=== PATIENT | male | born 1945 | race Caucasian/White ===

== ENCOUNTER 2019-09-12 08:01 | Outpatient (CLI) | payer MEDICARE, SELFPAY ==
[2019-09-12 09:36] LABS: Basophils Absolute Auto 0.1 K/mm3 (0.0-0.1); Basophils Percent Auto 0.8 % (0.2-1.2); Eosinophils Absolute Auto 0.1 K/mm3 (0-0.3); Eosinophils Percent Auto 1.2 % (0-4.4); Hematocrit 38.9 % (42.0-52.0); Hemoglobin 13.4 g/dL (14.0-18.0); Immature Granulocyte Absolute 0.07 K/mm3 (0.00-0.031); Immature Granulocyte Percent A 0.8 % (0-0.5); Lymphocytes Absolute Auto 2.16 K/mm3 (0.9-3.2); Mean Corpuscular HGB Conc 34.4 g/dl (32-36); Mean Corpuscular Hemoglobin 32.8 pg (26-34); Mean Corpuscular Volume 95.1 fl (80-100); Mean Platelet Volume 12.8 fl (7.4-10.4); Monocytes Absolute Auto 0.6 K/mm3 (0.1-0.6); Neutrophils Percent Auto 66.2 % (45.5-73.1); Nucleated Red Blood Cells Absolute Auto 0.1 K/mm3 (0.0-0.012); Nucleated Red Blood Cells Perc 0.6 % (0.0-0.2); Red Blood Count 4.09 M/mm3 (4.6-6.20); Red Cell Distribution Width 13.2 % (11.5-14.5)
[2019-09-12 09:51] LABS: Alanine Aminotransferase 17 U/L (4-50); Albumin Level 4.7 g/dL (3.5-5.1); Alkaline Phosphatase 123 U/L (38-126); Anion Gap 12.7 mmol/L (7-16); Aspartate Amino Transferase 29 U/L (17-59); Blood Urea Nitrogen 18 mg/dL (9-20); Calcium 9.5 mg/dL (8.4-10.2); Carbon Dioxide 27 mmol/L (22-30); Chloride 105 mmol/L (98-107); Estimated Glomerular Filt Rate > 60; Glucose 107 mg/dL (75-110); Lactate Dehydrogenase 420 U/L (313-618); Potassium 4.7 mmol/L (3.4-5.0); Sodium 140 mmol/L (137-145)
== END 2019-09-12 08:02 | disposition home or self-care (01) ==
LOC: ANHLAB 08:05
PROVIDERS: PCP Student in an Organized Health Care Education/Training Program; Visit Provider Internal Medicine Hematology & Oncology
DX: C91.10 Chronic lymphocytic leukemia of B-cell type not having achieved remission (principal)
CPT/HCPCS: 36415; 80053; 83615; 85025

== ENCOUNTER 2019-12-12 08:06 | Outpatient (CLI) | payer MEDICARE, SELFPAY ==
[2019-12-12 08:27] LABS: Basophils Absolute Auto 0.1 K/mm3 (0.0-0.1); Basophils Percent Auto 0.7 % (0.2-1.2); Eosinophils Absolute Auto 0.2 K/mm3 (0-0.3); Eosinophils Percent Auto 1.7 % (0-4.4); Hematocrit 33.3 % (42.0-52.0); Immature Granulocyte Absolute 0.07 K/mm3 (0.00-0.031); Immature Granulocyte Percent A 0.8 % (0-0.5); Lymphocytes Absolute Auto 2.79 K/mm3 (0.9-3.2); Mean Corpuscular Hemoglobin 34.4 pg (26-34); Mean Corpuscular Volume 95.4 fl (80-100); Mean Platelet Volume 11.1 fl (7.4-10.4); Monocytes Absolute Auto 0.7 K/mm3 (0.1-0.6); Monocytes Percent Auto 7.7 % (2.6-8.5); Neutrophils Absolute Auto 5.2 K/mm3 (1.3-6.7); Neutrophils Percent Auto 58.1 % (45.5-73.1); Platelet Count Result 205 k/mm3 (150-375); Red Blood Count 3.49 M/mm3 (4.6-6.20); Red Cell Distribution Width 14.8 % (11.5-14.5)
[2019-12-12 11:41] LABS: Alanine Aminotransferase 17 U/L (4-50); Albumin Level 4.6 g/dL (3.5-5.1); Alkaline Phosphatase 122 U/L (38-126); Anion Gap 8 mmol/L (8-16); Aspartate Amino Transferase 40 U/L (17-59); Bilirubin,Total 2.6 mg/dL (0.2-1.3); Blood Urea Nitrogen 20 mg/dL (9-20); Calcium 9.9 mg/dL (8.4-10.2); Carbon Dioxide 31 mmol/L (22-30); Chloride 103 mmol/L (98-107); Estimated Glomerular Filt Rate > 60; Glucose 108 mg/dL (75-110); Lactate Dehydrogenase 770 U/L (313-618); Potassium 4.4 mmol/L (3.4-5.0); Sodium 142 mmol/L (137-145)
== END 2019-12-12 08:07 | disposition home or self-care (01) ==
PROVIDERS: PCP Student in an Organized Health Care Education/Training Program; Visit Provider Internal Medicine Hematology & Oncology
DX: C91.10 Chronic lymphocytic leukemia of B-cell type not having achieved remission (principal)
CPT/HCPCS: 36415; 80053; 83615; 85025

== ENCOUNTER 2020-01-27 08:07 | Outpatient (CLI) | payer MEDICARE, SELFPAY ==
[2020-01-27 08:33] LABS: Basophils Absolute Auto 0.1 K/mm3 (0.0-0.1); Basophils Percent Auto 0.8 % (0.2-1.2); Eosinophils Absolute Auto 0.1 K/mm3 (0-0.3); Eosinophils Percent Auto 1.4 % (0-4.4); Hematocrit 34.3 % (42.0-52.0); Hemoglobin 12.2 g/dL (14.0-18.0); Immature Granulocyte Absolute 0.09 K/mm3 (0.00-0.031); Lymphocytes Percent Auto 35.4 % (18.3-44.2); Mean Corpuscular HGB Conc 35.6 g/dl (32-36); Mean Corpuscular Hemoglobin 34.9 pg (26-34); Mean Platelet Volume 11.2 fl (7.4-10.4); Monocytes Absolute Auto 0.8 K/mm3 (0.1-0.6); Monocytes Percent Auto 8.7 % (2.6-8.5); Neutrophils Absolute Auto 4.9 K/mm3 (1.3-6.7); Neutrophils Percent Auto 52.7 % (45.5-73.1); Platelet Count Result 200 k/mm3 (150-375); Red Cell Distribution Width 14.1 % (11.5-14.5); White Blood Count 9.3 K/mm3 (4.5-10.0)
[2020-01-27 12:19] LABS: Alanine Aminotransferase 20 U/L (4-50); Albumin Level 4.4 g/dL (3.5-5.1); Alkaline Phosphatase 121 U/L (38-126); Anion Gap 6 mmol/L (8-16); Aspartate Amino Transferase 34 U/L (17-59); Bilirubin,Total 2.2 mg/dL (0.2-1.3); Blood Urea Nitrogen 16 mg/dL (9-20); Calcium 9.7 mg/dL (8.4-10.2); Carbon Dioxide 32 mmol/L (22-30); Chloride 104 mmol/L (98-107); Estimated Glomerular Filt Rate > 60; Glucose 103 mg/dL (75-110); Lactate Dehydrogenase 565 U/L (313-618); Potassium 4.6 mmol/L (3.4-5.0); Sodium 142 mmol/L (137-145)
[2020-01-30 13:29] LABS: Haptoglobin <8 mg/dL (43-212)
== END 2020-01-27 08:08 | disposition home or self-care (01) ==
LOC: ANHLAB 08:09
PROVIDERS: PCP Student in an Organized Health Care Education/Training Program; Visit Provider Internal Medicine Hematology & Oncology
DX: C91.10 Chronic lymphocytic leukemia of B-cell type not having achieved remission (principal); D59.12 Cold autoimmune hemolytic anemia
CPT/HCPCS: 36415; 80053; 83010; 83615; 85025

== ENCOUNTER → 2020-06-17 07:52 | Outpatient (CLI) | payer MEDICARE, SELFPAY ==
--- NOTE | ~2020-06-17 | US_ITS ---
EXAMINATION: [facility] DATE: 06/17/2020 08:16 CDT INDICATION: Screening abdominal aortic aneurysm. History of tobacco use. TECHNIQUE: Grayscale, color Doppler, and pulsed Doppler images of the aorta and common iliac arteries were obtained. COMPARISON: None. FINDINGS: The proximal aorta measures 2.1 cm greatest sagittal dimension. The mid aorta measures 2 cm greatest sagittal dimension. The distal aorta measures 1.6 cm greatest sagittal dimension. The right common in ternal iliac artery measures 1 cm. The left common iliac artery measures 1 cm. IMPRESSION: 1. Normal caliber aorta without aneurysm. Reviewed, dictated and finalized at location B.
== END ==
PROVIDERS: PCP Student in an Organized Health Care Education/Training Program; Visit Provider Student in an Organized Health Care Education/Training Program
DX: Z13.6 Encounter for screening for cardiovascular disorders (principal); Z87.891 Personal history of nicotine dependence
CPT/HCPCS: 76706

== ENCOUNTER 2020-07-27 08:03 | Outpatient (CLI) | payer MEDICARE, SELFPAY ==
[2020-07-27 11:00] LABS: Basophils Absolute Auto 0.1 K/mm3 (0.0-0.1); Basophils Percent Auto 0.7 % (0.2-1.2); Eosinophils Absolute Auto 0.1 K/mm3 (0-0.3); Eosinophils Percent Auto 0.9 % (0-4.4); Hematocrit 33.8 % (42.0-52.0); Hemoglobin 11.6 g/dL (14.0-18.0); Immature Granulocyte Absolute 0.07 K/mm3 (0.00-0.031); Immature Granulocyte Percent A 0.8 % (0-0.5); Immature Platelet Fraction Pct 9.4 % (0.9-11.2); Lymphocytes Absolute Auto 2.66 K/mm3 (0.9-3.2); Lymphocytes Percent Auto 31.1 % (18.3-44.2); Mean Corpuscular HGB Conc 34.3 g/dl (32-36); Mean Corpuscular Volume 96.3 fl (80-100); Mean Platelet Volume 12.8 fl (7.4-10.4); Monocytes Absolute Auto 0.7 K/mm3 (0.1-0.6); Monocytes Percent Auto 8.1 % (2.6-8.5); Neutrophils Percent Auto 58.4 % (45.5-73.1); Nucleated Red Blood Cells Perc 0.2 % (0.0-0.2); Platelet Count Result 144 k/mm3 (150-375); Red Blood Count 3.51 M/mm3 (4.6-6.20); Red Cell Distribution Width 13.9 % (11.5-14.5); White Blood Count 8.6 K/mm3 (4.5-10.0)
[2020-07-27 13:09] LABS: Alanine Aminotransferase 16 U/L (4-50); Albumin Level 4.6 g/dL (3.5-5.1); Alkaline Phosphatase 106 U/L (38-126); Anion Gap 10 mmol/L (8-16); Aspartate Amino Transferase 29 U/L (17-59); Bilirubin,Total 2.4 mg/dL (0.2-1.3); Blood Urea Nitrogen 16 mg/dL (9-20); Calcium 9.8 mg/dL (8.4-10.2); Carbon Dioxide 24 mmol/L (22-30); Chloride 109 mmol/L (98-107); Estimated Glomerular Filt Rate > 60; Glucose 98 mg/dL (75-110); Lactate Dehydrogenase 531 U/L (313-618); Potassium 4.5 mmol/L (3.4-5.0); Sodium 143 mmol/L (137-145)
[2020-07-28 17:46] LABS: Hepatitis C Virus Antibody Negative (Negative); Prostate Specific Antigen 1.5 ng/mL (< OR = 4.0)
[2020-07-28 18:55] LABS: Cholesterol 158 mg/dL (0-200); HDL Direct 44 mg/dL; Triglycerides 84 mg/dL (<150)
[2020-07-28 19:02] LABS: LDL Cholesterol Direct 81 mg/dL
== END 2020-07-27 08:04 | disposition home or self-care (01) ==
PROVIDERS: PCP Student in an Organized Health Care Education/Training Program; Visit Provider Internal Medicine Hematology & Oncology
DX: C91.10 Chronic lymphocytic leukemia of B-cell type not having achieved remission (principal); R07.89 Other chest pain; D59.12 Cold autoimmune hemolytic anemia; Z12.5 Encounter for screening for malignant neoplasm of prostate; Z87.891 Personal history of nicotine dependence; R06.02 Shortness of breath; R07.9 Chest pain, unspecified
CPT/HCPCS: 36415; 80053; 80061; 83615; 84153; 84443; 85025; 85055; 86803; G0103

== ENCOUNTER 2020-11-27 08:03 | Outpatient (CLI) | payer MEDICARE, SELFPAY ==
[2020-11-27 08:29] LABS: Basophils Absolute Auto 0.1 K/mm3 (0.0-0.1); Basophils Percent Auto 0.8 % (0.2-1.2); Eosinophils Absolute Auto 0.1 K/mm3 (0-0.3); Eosinophils Percent Auto 1.3 % (0-4.4); Hematocrit 33.4 % (42.0-52.0); Hemoglobin 11.8 g/dL (14.0-18.0); Immature Granulocyte Absolute 0.07 K/mm3 (0.00-0.031); Immature Granulocyte Percent A 0.9 % (0-0.5); Lymphocytes Absolute Auto 2.85 K/mm3 (0.9-3.2); Lymphocytes Percent Auto 35.9 % (18.3-44.2); Mean Corpuscular HGB Conc 35.3 g/dl (32-36); Mean Corpuscular Hemoglobin 35.4 pg (26-34); Mean Corpuscular Volume 100.3 fl (80-100); Mean Platelet Volume 11.5 fl (7.4-10.4); Monocytes Absolute Auto 0.7 K/mm3 (0.1-0.6); Monocytes Percent Auto 8.3 % (2.6-8.5); Neutrophils Absolute Auto 4.2 K/mm3 (1.3-6.7); Neutrophils Percent Auto 52.8 % (45.5-73.1); Platelet Count Result 207 k/mm3 (150-375); Red Blood Count 3.33 M/mm3 (4.6-6.20); Red Cell Distribution Width 15.1 % (11.5-14.5); White Blood Count 7.9 K/mm3 (4.5-10.0)
[2020-11-27 09:54] LABS: Iron 172 ug/dL (49-181)
[2020-11-27 09:56] LABS: Alanine Aminotransferase 20 U/L (4-50); Alkaline Phosphatase 117 U/L (38-126); Anion Gap 8 mmol/L (8-16); Aspartate Amino Transferase 66 U/L (17-59); Bilirubin,Total 2.7 mg/dL (0.2-1.3); Blood Urea Nitrogen 17 mg/dL (9-20); Calcium 9.4 mg/dL (8.4-10.2); Carbon Dioxide 30 mmol/L (22-30); Chloride 105 mmol/L (98-107); Estimated Glomerular Filt Rate > 60; Glucose 106 mg/dL (65-110); Potassium 4.6 mmol/L (3.4-5.0); Sodium 143 mmol/L (137-145)
[2020-11-27 10:08] LABS: Percent Iron Saturation 60 % (20-50)
[2020-11-27 11:30] LABS: Folic Acid > 20.0 ng/mL (2.76->20)
== END 2020-11-27 08:04 | disposition home or self-care (01) ==
LOC: ANHLAB 08:06
PROVIDERS: PCP Student in an Organized Health Care Education/Training Program; Visit Provider Internal Medicine Hematology & Oncology
DX: C91.10 Chronic lymphocytic leukemia of B-cell type not having achieved remission (principal)
CPT/HCPCS: 36415; 80053; 82607; 82728; 82746; 83540; 83550; 85025

== ENCOUNTER 2020-12-01 15:23 | Emergency (ER) | payer MEDICARE, SELFPAY ==
[2020-12-01 15:39] VITALS: BP 134/68; PULSE 65; RESP 16; TEMP 36.6; O2SAT 100
[2020-12-01 16:06] VITALS: BP 148/75; PULSE 63; RESP 16; TEMP 36.6; O2SAT 100
--- NOTE | 2020-12-01 19:01 | ED.GENADULT ---
HPI - General Adult General Chief complaint: Extremity Injury, Upper <Santos Grace PA-C - Last Filed: 12/01/20 19:04> Stated complaint: finger lac <Santos Grace PA-C - Last Filed: 12/01/20 19:04> Time Seen by Provider: 12/01/20 16:12 <Santos Grace PA-C - Last Filed: 12/01/20 19:04> Source: patient <Santos Grace PA-C - Last Filed: 12/01/20 19:04> Mode of arrival: ambulatory <PAUL Boyce Last Filed: 12/01/20 19:04> Limitations: no limitations <PAUL Boyce Last Filed: 12/01/20 19:04> History of Present Illness HPI narrative: Patient presents with chief complaint of lacerations to the palmar aspects of his left second and fourth digits. Patient sustained these lacerations while using the hedge trimmers. Patient states that he is up-to-date on his tetanus as of May of this year. Patient denies any other injuries. <Santos Grace PA-C - Last Filed: 12/01/20 19:04> Related Data Home medications: Home Medications Medication Instructions Recorded Confirmed pantoprazole PO 12/01/20 <Santos Grace PA-C - Last Filed: 12/01/20 19:04> Allergies/adverse reactions: Allergies Allergy/AdvReac Type Severity Reaction Status Date / Time PAIN MEDS AdvReac Mild NAUSEATED Uncoded 09/27/11 10:56 <Santos Grace PA-C - Last Filed: 12/01/20 19:04> Review of Systems Review of Systems: CONSTITUTIONAL: Denies fever, chills, or sweats. EYES: Denies visual changes, redness, or discharge. ENT: Denies rhinorrhea, congestion, sore throat, or otalgia. CARDIOVASCULAR: Denies chest pain, palpitations, or edema. RESPIRATORY: Denies cough or dyspnea. GASTROINTESTINAL: Denies abdominal pain, nausea, vomiting, or diarrhea. GENITOURINARY: Denies dysuria or hematuria. SKIN: Reports lacerations denies rash or itching. MUSCULOSKELETAL: Denies back pain, joint pain, or myalgia. NEUROLOGIC: Denies headache, numbness, dizziness, or weakness. PSYCHIATRIC: Denies anxiety or depression. <Santos Grace PA-C - Last Filed: 12/01/20 19:04> PMFSH Family History Family History: Family History (Updated 10/17/13 @ 07:13 by DOCTOR UNKNOWN) Mother Family history of dementia <Santos Grace PA-C - Last Filed: 12/01/20 19:04> Social History Social History: Social History Smoking status: Never smoker Alcohol intake: never <Santos Grace PA-C - Last Filed: 12/01/20 19:04> Exam Narrative: GENERAL: Well-appearing, well-nourished, and in no acute distress. HEAD: Normocephalic, atraumatic. EYES: PERRLA and EOMI. EXTREMITIES: Normal range of motion. SKIN: Y-shaped laceration to the palmar aspect of the left second digit-well approximated. c shaped laceration to the palmar aspect of the left fourth digit well approximated. Warm, dry, no rash. NEURO: No focal deficits. Alert and oriented x3. PSYCH: Normal mood and affect. <Santos Grace PA-C - Last Filed: 12/01/20 19:04> Course Vital Signs Vital signs: Vital Signs Temperature 36.6 C 12/01/20 15:39 Pulse Rate 65 12/01/20 15:39 Respiratory Rate 16 12/01/20 15:39 Blood Pressure 134/68 12/01/20 15:39 Pulse Oximetry 100 12/01/20 15:39 Temperature 36.6 C 12/01/20 16:06 Pulse Rate 58 L 12/01/20 19:34 Respiratory Rate 17 12/01/20 19:34 Blood Pressure 143/75 H 12/01/20 19:34 Pulse Oximetry 100 12/01/20 19:34 <Santos Grace PA-C - Last Filed: 12/01/20 19:04> Procedures Laceration Laceration 1: Site: hand <PAUL Boyce Last Filed: 12/01/20 19:04> Side (If applicable): left (Second digit) <PAUL Boyce Last Filed: 12/01/20 19:04> Description: other (y shaped) <PAUL Boyce Last Filed: 12/01/20 19:04> Depth: simple, single layer <PAUL Boyce Last Filed: 12/01/20 19:04> Pre-repair: irrigated extensively <PAUL Boyce Filed: 11/20
[2020-12-01 19:34] VITALS: BP 143/75; PULSE 58; RESP 17; O2SAT 100
== END 2020-12-01 19:36 | disposition home or self-care (01) ==
PROVIDERS: Emergency Provider Emergency Medicine; PCP Student in an Organized Health Care Education/Training Program
DX: S61.211A Laceration without foreign body of left index finger without damage to nail, initial encounter (principal); S61.215A Laceration without foreign body of left ring finger without damage to nail, initial encounter; W26.8XXA Contact with other sharp object(s), not elsewhere classified, initial encounter
CPT/HCPCS: 12001; 99282

== ENCOUNTER 2021-03-30 08:05 | Outpatient (CLI) | payer MEDICARE, SELFPAY ==
[2021-03-30 08:41] LABS: Basophils Percent Auto 0.5 % (0.2-1.2); Eosinophils Absolute Auto 0.1 K/mm3 (0-0.3); Eosinophils Percent Auto 1.3 % (0-4.4); Hematocrit 34.2 % (42.0-52.0); Hemoglobin 11.9 g/dL (14.0-18.0); Immature Granulocyte Absolute 0.05 K/mm3 (0.00-0.031); Immature Granulocyte Percent A 0.6 % (0-0.5); Lymphocytes Absolute Auto 2.81 K/mm3 (0.9-3.2); Lymphocytes Percent Auto 33.5 % (18.3-44.2); Mean Corpuscular HGB Conc 34.8 g/dl (32-36); Mean Corpuscular Hemoglobin 35.6 pg (26-34); Mean Corpuscular Volume 102.4 fl (80-100); Mean Platelet Volume 11.8 fl (7.4-10.4); Monocytes Absolute Auto 0.6 K/mm3 (0.1-0.6); Monocytes Percent Auto 7.6 % (2.6-8.5); Neutrophils Absolute Auto 4.7 K/mm3 (1.3-6.7); Neutrophils Percent Auto 56.5 % (45.5-73.1); Platelet Count Result 212 k/mm3 (150-375); Red Blood Count 3.34 M/mm3 (4.6-6.20); Red Cell Distribution Width 13.9 % (11.5-14.5); White Blood Count 8.4 K/mm3 (4.5-10.0)
[2021-03-30 10:12] LABS: Alanine Aminotransferase 18 U/L (4-50); Albumin Level 4.6 g/dL (3.5-5.1); Alkaline Phosphatase 116 U/L (38-126); Anion Gap 6 mmol/L (8-16); Aspartate Amino Transferase 42 U/L (17-59); Bilirubin,Total 2.8 mg/dL (0.2-1.3); Blood Urea Nitrogen 17 mg/dL (9-20); Calcium 9.8 mg/dL (8.4-10.2); Carbon Dioxide 28 mmol/L (22-30); Chloride 105 mmol/L (98-107); Estimated Glomerular Filt Rate > 60; Glucose 108 mg/dL (65-110); Potassium 4.3 mmol/L (3.4-5.0); Sodium 139 mmol/L (137-145)
[2021-03-30 11:01] LABS: Iron 148 ug/dL (49-181)
[2021-03-30 11:10] LABS: Percent Iron Saturation 50 % (20-50)
== END 2021-03-30 08:06 | disposition home or self-care (01) ==
PROVIDERS: PCP Student in an Organized Health Care Education/Training Program; Visit Provider Internal Medicine Hematology & Oncology
DX: C91.10 Chronic lymphocytic leukemia of B-cell type not having achieved remission (principal)
CPT/HCPCS: 36415; 80053; 82728; 83540; 83550; 85025

== ENCOUNTER 2021-04-06 10:37 | Outpatient (CLI) | payer MEDICARE, SELFPAY | END 2021-04-06 10:38 | disposition home or self-care (01) | PROVIDERS: PCP Student in an Organized Health Care Education/Training Program; Visit Provider Internal Medicine Hematology & Oncology | DX: E83.19 Other disorders of iron metabolism (principal) | CPT/HCPCS: 36415; 81256 ==

== ENCOUNTER 2021-09-15 00:43 | Day surgery (SDC) | payer MEDICARE, SELFPAY ==
[2021-07-12 14:48] VITALS: BMI 25.1
[2021-08-30 14:30] VITALS: BMI 25.1
[2021-09-15 06:49] VITALS: BP 154/75; PULSE 72; RESP 18; TEMP 36.6; O2SAT 98
[2021-09-15] MEDS: LACTATED RINGERS 1,000 ML 150 ML IV CONT (06:58)
--- NOTE | 2021-09-15 07:18 | P.PNAN_ITS ---
Anes - Initial Pre Proc Eval Procedure: Operation Date: 09/15/21 07:30 Proposed Procedures p Screening Colonoscopy - Tj Saenz MD Date/Time: 09/15/21 07:18 Surgeon: Tj Saenz MD Pre Op Diagnosis: hx of colon polyps Patient Data Age: 75 Gender: M Height: 1.7 m Weight: 73.8 kg Last Vital Signs Temp 36.6 C 09/15/21 06:49 Pulse 72 09/15/21 06:49 Resp 18 09/15/21 06:49 BP 154/75 H 09/15/21 06:49 Pulse Ox 98 09/15/21 06:49 O2 Del Method Room Air 09/15/21 06:49 Allergies Allergy/AdvReac Type Severity Reaction Status Date / Time PAIN MEDS AdvReac Mild NAUSEATED Uncoded 09/15/21 06:48 Home Medications Medication Instructions Recorded Confirmed Type ascorbate calcium (vitamin C) 1 tab-cap PO DAILY 07/12/21 07/12/21 History famotidine 20 mg tablet 20 mg PO BID 07/12/21 07/12/21 History magnesium carbonate 1 tab-cap PO DAILY 07/12/21 07/12/21 History omega-3 fatty acids 1 cap PO DAILY 07/12/21 07/12/21 History vitamin B complex 1 tablet PO DAILY 07/12/21 07/12/21 History Patient hx anesthesia problems: none Family hx anesthesia problems: none Results Review: All pre-operative results and documents have been reviewed as part of the pre- operative evaluation. [facility] Past Medical History Medical History (Updated 09/15/21 @ 07:20 by Kayden Vega MD) Anemia Bladder cancer CLL (chronic lymphocytic leukemia) Family History Family History (Updated 10/17/13 @ 07:13 by DOCTOR UNKNOWN) Mother Family history of dementia Social History Social History Smoking status: Never smoker Alcohol intake: never Substance use: never Substance use type: does not use Living arrangements: with family Spiritual care concerns: No Anes - Eval Final PreProcedure Day of Procedure 09/15/21 07:18 Patient weight: normal Heart: regular rate and rhythm Lungs: clear to auscultation and normal air movement Airway: Mallampati scale class II Neurological: alert and oriented Last oral intake: >/= 8 hours ASA classification: III Emergent: no Anesthetic plan: proceed Anesthesia type and monitoring: general GIVS Results Review: All pre-operative results and documents have been reviewed as part of the pre- operative evaluation. Informed Consent: The patient's anesthetic plan and its attendant risks and benefits were discussed with the patient/family/POA. Questions were solicited and answers provided to the satisfaction of the patient/family/POA.
--- NOTE | 2021-09-15 07:32 | PM.HPGS ---
History of Present Illness History of Present Illness Consent: Risks, benefits, and alternatives have been discussed and questions answered. Patient agrees to proceed with procedure. Chief complaint: hx of colon polyps Narrative: Richard Pringle is a 75 year old male with colon polyp 7 years ago Review of Systems Constitutional: Constitutional: Denies headache(s) and Denies weakness Eyes: Eyes: Denies blurry vision ENT: Reports Normal hearing present, Denies headache(s) and Denies neck pain Cardiovascular: Cardiovascular: Denies chest pain and Denies dyspnea Respiratory: Respiratory: Denies dyspnea Gastrointestinal: Gastrointestinal: Reports no additional gastrointestinal complaints Genitourinary: Genitourinary: Denies dysuria Musculoskeletal: Musculoskeletal: Denies neck pain Integumentary/Breasts: Skin/Breast: Denies dry skin Neurologic: Reports Normal hearing present, Denies headache(s) and Denies weakness Psychiatric: Psychiatric: Denies anxiety Endocrine: Endocrine: Denies change in body appearance Hematologic/Lymphatic: Hematologic/Lymphatic: Denies easy bleeding Allergic/Immunologic: Allergic/Immunologic: Denies urticaria PMFSH Past Medical History Medical History (Updated 09/15/21 @ 07:33 by Tj Saenz MD) Anemia Bladder cancer CLL (chronic lymphocytic leukemia) Colon cancer screening Family History Family History (Updated 10/17/13 @ 07:13 by DOCTOR UNKNOWN) Mother Family history of dementia Social History Social History Smoking status: Never smoker Alcohol intake: never Substance use: never Substance use type: does not use Living arrangements: with family Spiritual care concerns: No Meds Home Medications and Allergies Home Medications Medication Instructions Recorded Confirmed Type ascorbate calcium (vitamin C) 1 tab-cap PO DAILY 07/12/21 07/12/21 History famotidine 20 mg tablet 20 mg PO BID 07/12/21 07/12/21 History magnesium carbonate 1 tab-cap PO DAILY 07/12/21 07/12/21 History omega-3 fatty acids 1 cap PO DAILY 07/12/21 07/12/21 History vitamin B complex 1 tablet PO DAILY 07/12/21 07/12/21 History Allergies Allergy/AdvReac Type Severity Reaction Status Date / Time PAIN MEDS AdvReac Mild NAUSEATED Uncoded 09/15/21 06:48 Vital Signs Vital Signs - 24 hr 09/15/21 06:49 Temperature 98 F Pulse Rate 72 Respiratory Rate 18 Blood Pressure 154/75 H Pulse Oximetry 98 Oxygen Delivery Room Air Exam Const: General: comfortable and no acute distress HENMT: General nose exam: Normal nares present Eyes: General: appearance normal, both eyes and all related structures Neck: Neck: no JVD Resp: Auscultation: clear to auscultation bilaterally Cardio: Rate: regular rate Rhythm: regular rhythm GI: Inspection: non-distended GI Palp: Yes Soft to palpation Skin: General skin exam: normal color Neuro: General: gait normal Speech: normal speech Extrem: General: normal to inspection Psych: Mental Status: mental status grossly normal Assessment and Plan Assessment and plan (1) Colon cancer screening: Code(s): Z12.11 - Encounter for screening for malignant neoplasm of colon Status: Acute Assessment and Plan: colonoscopy
[2021-09-15 07:50] VITALS: BP 96/54; PULSE 62; RESP 13; O2SAT 98
[2021-09-15 08:00] VITALS: BP 107/67; PULSE 65; RESP 20; O2SAT 98
[2021-09-15 08:10] VITALS: BP 110/64; PULSE 56; RESP 22; O2SAT 96
== END 2021-09-15 08:21 | disposition home or self-care (01) ==
PROVIDERS: PCP Student in an Organized Health Care Education/Training Program; Visit Provider Internal Medicine Gastroenterology
PROC: 0DJD8ZZ Inspection of Lower Intestinal Tract, Via Natural or Artificial Opening Endoscopic (ICD-10-PCS; CPT 45378; principal; 2021-09-15 07:30)
DX: Z12.11 Encounter for screening for malignant neoplasm of colon (principal); K63.5 Polyp of colon; K57.30 Diverticulosis of large intestine without perforation or abscess without bleeding; K64.8 Other hemorrhoids; D12.0 Benign neoplasm of cecum; D64.9 Anemia, unspecified; Z85.51 Personal history of malignant neoplasm of bladder; C91.10 Chronic lymphocytic leukemia of B-cell type not having achieved remission
CPT/HCPCS: 45385; 45380; 88305; J2001; J2704; J7120

== ENCOUNTER 2021-10-06 08:08 | Outpatient (CLI) | payer MEDICARE, SELFPAY ==
[2021-10-06 09:39] LABS: Basophils Absolute Auto 0.1 K/mm3 (0.0-0.1); Basophils Percent Auto 0.5 % (0.2-1.2); Eosinophils Absolute Auto 0.1 K/mm3 (0-0.3); Eosinophils Percent Auto 1.3 % (0-4.4); Hemoglobin 12.5 g/dL (14.0-18.0); Immature Granulocyte Absolute 0.06 K/mm3 (0.00-0.031); Immature Granulocyte Percent A 0.7 % (0-0.5); Lymphocytes Absolute Auto 3.39 K/mm3 (0.9-3.2); Lymphocytes Percent Auto 36.9 % (18.3-44.2); Mean Corpuscular HGB Conc 34.7 g/dl (32-36); Mean Corpuscular Hemoglobin 33.5 pg (26-34); Mean Corpuscular Volume 96.5 fl (80-100); Mean Platelet Volume 12.2 fl (7.4-10.4); Monocytes Absolute Auto 0.7 K/mm3 (0.1-0.6); Monocytes Percent Auto 7.5 % (2.6-8.5); Neutrophils Absolute Auto 4.9 K/mm3 (1.3-6.7); Neutrophils Percent Auto 53.1 % (45.5-73.1); Platelet Count Result 212 k/mm3 (150-375); Red Blood Count 3.73 M/mm3 (4.6-6.20); Red Cell Distribution Width 14.2 % (11.5-14.5); White Blood Count 9.2 K/mm3 (4.5-10.0)
[2021-10-06 13:06] LABS: Iron 163 ug/dL (49-181)
[2021-10-06 13:13] LABS: Alanine Aminotransferase 18 U/L (6-50); Alkaline Phosphatase 109 U/L (38-126); Anion Gap 9 mmol/L (8-16); Aspartate Amino Transferase 66 U/L (17-59); Bilirubin,Total 3.2 mg/dL (0.2-1.3); Blood Urea Nitrogen 18 mg/dL (9-20); Calcium 9.7 mg/dL (8.4-10.2); Carbon Dioxide 27 mmol/L (22-30); Chloride 103 mmol/L (98-107); Estimated Glomerular Filt Rate > 60; Glucose 103 mg/dL (65-110); Lactate Dehydrogenase 273 U/L (120-246); Potassium 5.8 mmol/L (3.4-5.0); Sodium 139 mmol/L (137-145)
[2021-10-06 13:15] LABS: Percent Iron Saturation 50 % (20-50)
== END 2021-10-06 08:09 | disposition home or self-care (01) ==
LOC: ANHLAB 08:09
PROVIDERS: PCP Student in an Organized Health Care Education/Training Program; Visit Provider Internal Medicine Hematology & Oncology
DX: C91.90 Lymphoid leukemia, unspecified not having achieved remission (principal); E83.19 Other disorders of iron metabolism
CPT/HCPCS: 36415; 80053; 82728; 83540; 83550; 83615; 85025

== ENCOUNTER 2022-04-08 08:04 | Outpatient (CLI) | payer MEDICARE, SELFPAY ==
[2022-04-08 09:30] LABS: Alanine Aminotransferase 23 U/L (6-50); Albumin Level 4.8 g/dL (3.5-5.1); Alkaline Phosphatase 118 U/L (38-126); Anion Gap 5 mmol/L (8-16); Aspartate Amino Transferase 46 U/L (17-59); Bilirubin,Total 2.5 mg/dL (0.2-1.3); Blood Urea Nitrogen 16 mg/dL (9-20); Calcium 9.2 mg/dL (8.4-10.2); Carbon Dioxide 30 mmol/L (22-30); Chloride 106 mmol/L (98-107); Estimated Glomerular Filt Rate > 60; Glucose 110 mg/dL (65-110); Potassium 4.9 mmol/L (3.4-5.0); Sodium 141 mmol/L (137-145)
[2022-04-08 09:31] LABS: Iron 98 ug/dL (49-181)
[2022-04-08 09:40] LABS: Percent Iron Saturation 30 % (20-50)
[2022-04-08 10:09] LABS: Basophils Absolute Auto 0.1 K/mm3 (0.0-0.1); Basophils Percent Auto 0.9 % (0.2-1.2); Eosinophils Absolute Auto 0.2 K/mm3 (0-0.3); Eosinophils Percent Auto 2.2 % (0-4.4); Hematocrit 34.4 % (42.0-52.0); Hemoglobin 11.6 g/dL (14.0-18.0); Immature Granulocyte Absolute 0.11 K/mm3 (0.00-0.031); Immature Granulocyte Percent A 1.1 % (0-0.5); Lymphocytes Absolute Auto 4.21 K/mm3 (0.9-3.2); Lymphocytes Percent Auto 41.2 % (18.3-44.2); Mean Corpuscular HGB Conc 33.7 g/dl (32-36); Mean Corpuscular Hemoglobin 33.4 pg (26-34); Mean Corpuscular Volume 99.1 fl (80-100); Monocytes Absolute Auto 0.8 K/mm3 (0.1-0.6); Monocytes Percent Auto 7.9 % (2.6-8.5); Neutrophils Absolute Auto 4.8 K/mm3 (1.3-6.7); Neutrophils Percent Auto 46.7 % (45.5-73.1); Nucleated Red Blood Cells Perc 0.3 % (0.0-0.2); Red Blood Count 3.47 M/mm3 (4.6-6.20); Red Cell Distribution Width 14.6 % (11.5-14.5); White Blood Count 10.2 K/mm3 (4.5-10.0)
== END 2022-04-08 08:05 | disposition home or self-care (01) ==
LOC: ANHLAB 08:07
PROVIDERS: PCP Student in an Organized Health Care Education/Training Program; Visit Provider Internal Medicine Hematology & Oncology
DX: E83.19 Other disorders of iron metabolism (principal)
CPT/HCPCS: 36415; 80053; 82728; 83540; 83550; 85025

== ENCOUNTER 2022-10-06 08:02 | Outpatient (CLI) | payer MEDICARE, SELFPAY ==
[2022-10-06 11:03] LABS: Alanine Aminotransferase 20 U/L (6-50); Albumin Level 4.4 g/dL (3.5-5.1); Alkaline Phosphatase 117 U/L (38-126); Anion Gap 5 mmol/L (8-16); Aspartate Amino Transferase 31 U/L (17-59); Bilirubin,Total 2.8 mg/dL (0.2-1.3); Blood Urea Nitrogen 19 mg/dL (9-20); Calcium 9.6 mg/dL (8.4-10.2); Carbon Dioxide 31 mmol/L (22-30); Chloride 106 mmol/L (98-107); Estimated Glomerular Filt Rate > 60; Glucose 102 mg/dL (65-110); Lactate Dehydrogenase 206 U/L (120-246); Potassium 4.6 mmol/L (3.4-5.0); Sodium 142 mmol/L (137-145)
[2022-10-06 11:47] LABS: Iron 187 ug/dL (49-181)
[2022-10-06 11:59] LABS: Percent Iron Saturation 60 % (20-50)
[2022-10-06 12:12] LABS: Basophils Absolute Auto 0.1 K/mm3 (0.0-0.1); Basophils Percent Auto 0.6 % (0.2-1.2); Eosinophils Absolute Auto 0.2 K/mm3 (0-0.3); Eosinophils Percent Auto 1.4 % (0-4.4); Hematocrit 35.3 % (42.0-52.0); Immature Granulocyte Percent A 0.9 % (0-0.5); Lymphocytes Absolute Auto 4.41 K/mm3 (0.9-3.2); Lymphocytes Percent Auto 40.9 % (18.3-44.2); Mean Corpuscular Hemoglobin 33.8 pg (26-34); Mean Corpuscular Volume 99.4 fl (80-100); Mean Platelet Volume 12.3 fl (7.4-10.4); Monocytes Absolute Auto 0.9 K/mm3 (0.1-0.6); Neutrophils Absolute Auto 5.2 K/mm3 (1.3-6.7); Neutrophils Percent Auto 48.2 % (45.5-73.1); Platelet Count Result 207 k/mm3 (150-375); Red Blood Count 3.55 M/mm3 (4.6-6.20); Red Cell Distribution Width 14.5 % (11.5-14.5); White Blood Count 10.8 K/mm3 (4.5-10.0)
== END 2022-10-06 08:03 | disposition home or self-care (01) ==
LOC: ANHLAB 08:06
PROVIDERS: PCP Student in an Organized Health Care Education/Training Program; Visit Provider Internal Medicine Hematology & Oncology
DX: C91.10 Chronic lymphocytic leukemia of B-cell type not having achieved remission (principal)
CPT/HCPCS: 36415; 80053; 82728; 83540; 83550; 83615; 85025

== ENCOUNTER 2023-02-02 08:06 | Outpatient (CLI) | payer MEDICARE, SELFPAY ==
[2023-02-02 09:14] LABS: Basophils Absolute Auto 0.1 K/mm3 (0.0-0.1); Basophils Percent Auto 0.8 % (0.2-1.2); Eosinophils Absolute Auto 0.2 K/mm3 (0-0.3); Eosinophils Percent Auto 1.8 % (0-4.4); Hematocrit 31.7 % (42.0-52.0); Hemoglobin 10.8 g/dL (14.0-18.0); Immature Granulocyte Percent A 1.7 % (0-0.5); Lymphocytes Absolute Auto 4.79 K/mm3 (0.9-3.2); Lymphocytes Percent Auto 40.1 % (18.3-44.2); Mean Corpuscular HGB Conc 34.1 g/dl (32-36); Mean Corpuscular Hemoglobin 34.1 pg (26-34); Mean Platelet Volume 12.4 fl (7.4-10.4); Monocytes Absolute Auto 0.8 K/mm3 (0.1-0.6); Neutrophils Absolute Auto 5.8 K/mm3 (1.3-6.7); Neutrophils Percent Auto 48.6 % (45.5-73.1); Platelet Count Result 160 k/mm3 (150-375); Red Blood Count 3.17 M/mm3 (4.6-6.20); Red Cell Distribution Width 14.7 % (11.5-14.5)
[2023-02-02 09:41] LABS: Iron 157 ug/dL (49-181)
[2023-02-02 09:49] LABS: Alanine Aminotransferase 18 U/L (6-50); Albumin Level 4.5 g/dL (3.5-5.1); Alkaline Phosphatase 119 U/L (38-126); Anion Gap 6 mmol/L (8-16); Aspartate Amino Transferase 34 U/L (17-59); Bilirubin,Total 3.1 mg/dL (0.2-1.3); Blood Urea Nitrogen 18 mg/dL (9-20); Calcium 9.8 mg/dL (8.4-10.2); Carbon Dioxide 27 mmol/L (22-30); Chloride 107 mmol/L (98-107); Estimated Glomerular Filt Rate > 60; Glucose 103 mg/dL (65-110); Potassium 4.7 mmol/L (3.4-5.0); Sodium 140 mmol/L (137-145)
[2023-02-02 09:50] LABS: Percent Iron Saturation 55 % (20-50)
== END 2023-02-02 08:07 | disposition home or self-care (01) ==
PROVIDERS: PCP Student in an Organized Health Care Education/Training Program; Visit Provider Internal Medicine Hematology & Oncology
DX: E83.19 Other disorders of iron metabolism (principal)
CPT/HCPCS: 36415; 80053; 82728; 83540; 83550; 85025

== ENCOUNTER 2023-04-05 08:19 | Outpatient (CLI) | payer MEDICARE, SELFPAY ==
[2023-04-05 10:39] LABS: Basophils Absolute Auto 0.1 K/mm3 (0.0-0.1); Basophils Percent Auto 0.7 % (0.2-1.2); Eosinophils Absolute Auto 0.2 K/mm3 (0-0.3); Hemoglobin 10.2 g/dL (14.0-18.0); Immature Granulocyte Absolute 0.17 K/mm3 (0.00-0.031); Immature Granulocyte Percent A 1.4 % (0-0.5); Lymphocytes Absolute Auto 4.53 K/mm3 (0.9-3.2); Lymphocytes Percent Auto 37.6 % (18.3-44.2); Mean Corpuscular Hemoglobin 34.5 pg (26-34); Mean Corpuscular Volume 101.4 fl (80-100); Mean Platelet Volume 11.5 fl (7.4-10.4); Monocytes Absolute Auto 0.9 K/mm3 (0.1-0.6); Monocytes Percent Auto 7.6 % (2.6-8.5); Neutrophils Absolute Auto 6.1 K/mm3 (1.3-6.7); Neutrophils Percent Auto 50.7 % (45.5-73.1); Nucleated Red Blood Cells Absolute Auto 0.1 K/mm3 (0.0-0.012); Nucleated Red Blood Cells Perc 0.5 % (0.0-0.2); Platelet Count Result 186 k/mm3 (150-375); Red Blood Count 2.96 M/mm3 (4.6-6.20); Red Cell Distribution Width 15.6 % (11.5-14.5); White Blood Count 12.1 K/mm3 (4.5-10.0)
[2023-04-05 15:41] LABS: Iron 218 ug/dL (49-181)
[2023-04-05 15:45] LABS: Alanine Aminotransferase 22 U/L (6-50); Albumin Level 4.2 g/dL (3.5-5.1); Alkaline Phosphatase 115 U/L (38-126); Anion Gap 6 mmol/L (8-16); Aspartate Amino Transferase 43 U/L (17-59); Bilirubin,Total 3.5 mg/dL (0.2-1.3); Blood Urea Nitrogen 18 mg/dL (9-20); Calcium 9.7 mg/dL (8.4-10.2); Carbon Dioxide 30 mmol/L (22-30); Chloride 105 mmol/L (98-107); Estimated Glomerular Filt Rate > 60; Glucose 95 mg/dL (65-110); Lactate Dehydrogenase 298 U/L (120-246); Potassium 4.8 mmol/L (3.4-5.0); Sodium 141 mmol/L (137-145)
[2023-04-05 15:53] LABS: Percent Iron Saturation 76 % (20-50)
== END 2023-04-05 08:20 | disposition home or self-care (01) ==
LOC: ANHLAB 08:21
PROVIDERS: PCP Student in an Organized Health Care Education/Training Program; Visit Provider Internal Medicine Hematology & Oncology
DX: E83.19 Other disorders of iron metabolism (principal); D59.12 Cold autoimmune hemolytic anemia
CPT/HCPCS: 36415; 80053; 82728; 83540; 83550; 83615; 85025

== ENCOUNTER 2024-02-15 07:58 | Outpatient (CLI) | payer MEDICARE, SELFPAY ==
--- NOTE | ~2024-02-15 | XR_ITS ---
XR abdomen/kub 1V Ordering provider: Lynsey Palomo PA-C History: . CALCULUS OF URETER . Comparison: July 03, 2015 FINDINGS: BOWEL: Nonobstructive bowel gas pattern. ORGANOMEGALY: None. SIGNIFICANT PATHOLOGIC CALCIFICATIONS: Stone is seen in the left kidney lower pole. Left double-J dominique nt is noted. Possible faint calcification in the area of the lower left ureter is not excluded. OTHER: No free air is seen under the diaphragm. IMPRESSION: NO ACUTE ABDOMINAL FINDINGS. Left kidney stone. Left double-J stent. Possible left lower ureteric stone. Reviewed, dictated and finalized at location A. 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
--- OUTSIDE RECORDS SUMMARY | 2024-02-22 10:51 | XMS_ITS | Patient Health Summary ---
Author Organization [facility] Address [address] [place] [address] Care Team Providers Care Employment Interviewer Name Role Phone Ryan Maloney DO Primary Care Provider + Note from [facility],non-owned Affiliates and Associated Physician Practices is amultiple site organization consisting of ambulatory clinics and hospital sitesin [place], [place], [place] and [place]. This disclosure is being madepursuant to the Care Everywhere program and may not contain all information available regarding this patient. Last updated 17.[facility] Active Problems Problem Noted Date Diagnosed Date Aftercare following surgery for neoplasm 011 Social History Tobacco Use Types Packs/Day Years Used Date Smoking Tobacco: Former Cigarettes Q uit: 06/20/1965 Smokeless Tobacco: Never Alcohol Use Standard Drinks/Week Comments Yes 0.8 (1 standard drink = 0.6 oz p ure alcohol) Sex and Gender Information Value Date Recorded Sex Assigned at Not on file Gender Identity Not on file Sexual Orientation Not on file Procedures * DERMATOPATHOLOGY(Performed 09/05/2021) * DERMATOPATHOLOGY(Performed 07/31/2018) * DERMATOPATHOLOGY(Performed 01/19/2017) * DERMATOPATHOLOGY(Performed 11/23/2012) * DERMATOPATHOLOGY(Performed 12/13/2011) * PATHOLOGY/GENETICS HISTORICAL-ONBASE(Performed 04/13/2010) Results * DERMATOPATHOLOGY (09/05/2021 12:00 AM CDT) Only the most recent of5 resultswithin the time period is included. Case Report Dermatopathology Report ? Case: [id number] ? Authorizing Provider: ??Marcelo Andrews MD ?Collected: ? 09/05/2021 12:00 AM ? Ordering Location: ? [facility] ?Received: ?09/08/2021 04:59 PM ? Pathologist: ? Dione Earl MD ? Specimens: ?? A) - Skin, right jaw ? B) - Skin, mid lower back ? 2 1:39 PM CDT DERMATOPATHOLOGY LABORATORY Final Diagnosis Specimen A. 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 SKIN, mid lower back: BASAL CELL CARCINOMA, NODULAR TYPE (C44.519) 2 1:39 PM CDT DERMATOPATHOLOGY LABORATORY Clinical History A: BCC. Path# [id number] B: BCC. Path# [id number] 2 1:39 PM CDT DERMATOPATHOLOGY LABORATORY Gross Description Specimen A: Received is one formalin filled container labeled with the patient's name and designated right jaw. The specimen consists of a shave biopsy measuring [id number]. Jar 0. Specimen B: Received is one formalin filled container labeled with the patient's name and designated mid lower back. The specimen consists of a shave biopsy measuring [id number]. Jar 0. 2 1:39 PM CDT DERMATOPATHOLOGY LABORATORY Microscopic Description Specimen A. SKIN, right jaw: Within the dermis there are aggregates of basaloid cells with a high nuclear to cytoplasmic ratio and peripheral palisading. Specimen B. SKIN, mid lower back: Within the dermis there are aggregates of basaloid cells with a high nuclear to cytoplasmic ratio and peripheral palisading. 2 1:39 PM CDT DERMATOPATHOLOGY LABORATORY Disclaimer An external and internal positive and negative controls are appropriate for the histochemical, immunohistochemical and immunofluorescence stain(s) in this case (if any), except where stated explicitly. The performance characteristics of the stain(s) cited in this report were developed and its performance characteristic determined by the Dermatopathology Laboratory at [facility], directed by Dr. Christina Sadler. These tests need not be, and therefore are not, approved by the [place] Food and Drug Administration. The tests are used for clinical purposes. Billing Codes Specimen Charges Stain Charges 47006 38390 1 1 2 1:39 PM CDT DERMATOPATHOLOGY LABORATORY Embedded Images 2 1:39 PM CDT DERMATOPATHOLOGY LABORATORY Pathology/Cytology TISSUE SPECIMEN FROM SKIN / Unknown 09/05/2021 09/08/2021 4:59 PM CDT Miscellaneous samples (specimen) TISSUE SPECIMEN FROM SKIN / Unknown 09/05/2021 09/08/2021 4:59 PM CDT Marcelo Andrews MD LAB - PATHOLOGY/CYTO LOGY ORDERABLES DERMATOPATHOLOGY LABORATORY [facility] - Department of Dermatology [address], [address] [phone] * PATHOLOGY/GENETICS HISTORICAL-ONBASE (04/13/2010) 04/13/2010 Historical Provider MD LAB - CHEMISTRY O RDERABLES [facility] Care Teams Employment Interviewer Relationship Specialty Start Date End Date Ryan Maloney DO [address] [place] [id number] PCP - General 09/28/21
--- OUTSIDE RECORDS SUMMARY | 2024-02-22 10:51 | XMS_ITS | Clinical Summary ---
Author Organization [facility] Address [address] [place] [address] Care Team Providers Care Nurses Aide Name Role Phone Ryan Maloney DO Primary Care Provider + Source Comments [facility],non-owned Affiliates and Associated Physician Practices is amultiple site organization consisting of ambulatory clinics and hospital sitesin [place], [place], [place] and [place]. This disclosure is being madepursuant to the Care Everywhere program and may not contain all information available regarding this patient. Last updated 17.[facility] Active Problems Problem Noted Date Diagnosed Date Aftercare following surgery for neoplasm 011 Family History Medical History Relation Name Comments Cancer - Skin, Non Melanoma Mother Relation Name Status Comments Mother Social History Tobacco Use Types Packs/Day Years Used Date Smoking Tobacco: Former Cigarettes Q uit: 06/20/1965 Smokeless Tobacco: Never Alcohol Use Standard Drinks/Week Comments Yes 0.8 (1 standard drink = 0.6 oz p ure alcohol) Sex and Gender Information Value Date Recorded Sex Assigned at Not on file Gender Identity Not on file Sexual Orientation Not on file Plan of Treatment Health Maintenance Due Date Last Done Comments MEDICARE AWV ? 12 MONTHS 1945 HEPATITIS C SCREENING 10/23/1963 DTAP/TDAP/TD VACCINES (1 - Tdap) 1964 ZOSTER VACCINE (1 of 2) 10/28/1995 PNEUMOCOCCAL VACCINE 65+ (1 of 1 - PCV) 2010 Respiratory Syncytial Virus (RSV) Vaccine Pt: or over 60 yrs (1 - 1-dose 75+ series) 2020 DEPRESSION SCREENING 02/20/2023 COVID-19 VACCINE (1 - 2023-2 5 season) 2023 INFLUENZA VACCINE (#1) 2023 HEPATITIS B VACCINE Aged Out No longe r eligible based on patient's age to complete this topic HIB VACCINE Aged Out No longer eligi ble based on patient's age to complete this topic HPV VACCINE Aged Out No longer eligi ble based on patient's age to complete this topic MENINGOCOCCAL VACCINE Aged Out No taqueria codie eligible based on patient's age to complete this topic Care Teams Nurses Aide Relationship Specialty Start Date End Date Ryan Maloney DO [address] [place] [id number] PCP - General 09/28/21
--- OUTSIDE RECORDS SUMMARY | 2024-02-22 10:51 | XMS_ITS | Encounter Summary ---
Author Organization [facility] Address [address] [place] [address] Care Team Providers Care Deadener Name Role Phone Laz Lopez MD Primary Care Provider [phone] Ryan Maloney DO Primary Care Provider + Encounter Details Date Type Department Care Team (Late st Contact Info) Description 09/08/2021 Lab Requisition [facility] Care DermPath Lab [address] [place] [address] Marcelo Andrews MD [address] [place] [address] Social History Tobacco Use Types Packs/Day Years Used Date Smoking Tobacco: Former Cigarettes Q uit: 06/20/1965 Smokeless Tobacco: Never Alcohol Use Standard Drinks/Week Comments Yes 0.8 (1 standard drink = 0.6 oz p ure alcohol) Sex and Gender Information Value Date Recorded Sex Assigned at Not on file Gender Identity Not on file Sexual Orientation Not on file documented as of this encounter Plan of Treatment Not on file documented as of this encounter Procedures Procedure Name Priority Date/Time Associated Diagnosis Comments DERMATOPATHOLOGY Routine 09/05/2021 12:0 0 AM CDT documented in this encounter Results * DERMATOPATHOLOGY (09/05/2021 12:00 AM CDT) Case Report Dermatopathology Report ? Case: [id number] ? Authorizing Provider: ??Marcelo Andrews MD ?Collected: ? 09/05/2021 12:00 AM ? Ordering Location: ? [facility] DermPath Lab ?Received: ?09/08/2021 04:59 PM ? [...] DERMATOPATHOLOGY LABORATORY Clinical History A: BCC. Path# [id number] B: BCC. Path# [id number] 2 1:39 PM CDT DERMATOPATHOLOGY LABORATORY Gross Description Specimen A: Received is one formalin filled container labeled with the patient's name and designated right jaw. The specimen consists of a shave biopsy measuring [id number]. Jar 0. Specimen B: Received is one formalin filled container labeled with the patient's name and designated mid lower back. The specimen consists of a shave biopsy measuring [id number]. Jar 0. 2 1:39 PM CDT DERMATOPATHOLOGY [...] characteristic determined by the Dermatopathology Laboratory at [facility], directed by Dr. Christina Sadler. These tests need not be, and therefore are not, approved by the [place] Food and Drug Administration. The tests are used for clinical purposes. Billing Codes Specimen Charges Stain Charges [id number] 1 1 2 1:39 PM CDT DERMATOPATHOLOGY LABORATORY Embedded Images 2 1:39 PM CDT DERMATOPATHOLOGY LABORATORY Pathology/Cytology TISSUE SPECIMEN FROM SKIN / Unknown 09/05/2021 09/08/2021 4:59 PM CDT Miscellaneous samples (specimen) TISSUE SPECIMEN FROM SKIN / Unknown 09/05/2021 09/08/2021 4:59 PM CDT Marcelo Andrews MD LAB - PATHOLOGY/CYTO LOGY ORDERABLES DERMATOPATHOLOGY LABORATORY [facility] - Department of Dermatology [address] [phone] documented in this encounter Visit Diagnoses Not on filedocumented in this encounter Care Teams Deadener Relationship Specialty Start Date End Date Laz Lopez MD [address] [place] [phone] PCP - General 03/19/10 09/27/21 Ryan Maloney DO [address] [place] [id number] PCP - General 09/28/21 documented as of this encounter
--- OUTSIDE RECORDS SUMMARY | 2024-02-22 10:51 | XMS_ITS | Encounter Summary ---
Author Organization [facility] Address [address] [facility] [place] [address] Care Team Providers Care Uniform Cap Operator Name Role Phone Laz Lopez MD Primary Care Provider [phone] Ryan Maloney DO Primary Care Provider + Encounter Details Date Type Department Care Team (Late st Contact Info) Description 08/01/2018 Lab Requisition [facility] Care DermPath Lab [address] [facility] [address] [facility], [place] [id number] Skip Storey MD [address] [place] [address] Social History Tobacco Use Types Packs/Day Years [...] Priority Date/Time Associated Diagnosis Comments DERMATOPATHOLOGY Routine 07/31/2018 12:0 0 AM CDT documented in this encounter Results * DERMATOPATHOLOGY (07/31/2018 12:00 AM CDT) Case Report Dermatopathology Report ? Case: [id number] ? Authorizing Provider: ??Skip Storey MD ?Collected: ? 07/31/2018 12:00 AM ? Pathologist: ? Irma Berry MD ?Received: ?08/01/2018 01:59 PM ? Specimens: ?? A) - Skin, left post helix rim ? B) - Skin, post neck left of midline ? 12:31 PM CDT DERMATOPATHOLOGY LABORATORY Final Diagnosis Specimen A. 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 Check margins. 12:31 PM CDT DERMATOPATHOLOGY LABORATORY Gross Description Specimen A: Received is one formalin filled container labeled with the patients name and designated left post helix rim. The specimen consists of a shave removal measuring [id number]. Jar 0. Specimen B: Received is one formalin filled container labeled with the patient's name and designated post neck left of midline. The specimen consists of a shave removal measuring [id number]. Jar 0. 12:31 PM CDT DERMATOPATHOLOGY LABORATORY Microscopic Description Specimen A. SKIN, left post helix rim: There are nests of squamous epithelial cells which arise from the epidermis and extend into the dermis. The nests have only focal central keratinization and rare horn eliza formation. A Jacob-EP4 immunostain is negative within the lesion. This lesion is present at the margin of the specimen. Specimen B. SKIN, post neck left of midline: The epidermis is eroded. Sections show acanthosis, hypergranulosis, and hyperkeratosis. The papillary dermis is fibrotic. This lesion is not present at the sampled margin of the specimen. 12:31 PM CDT DERMATOPATHOLOGY LABORATORY Disclaimer An external and internal positive and negative controls are appropriate for the histochemical, immunohistochemical and immunofluorescence stain(s) in this case (if any), except where stated explicitly. The performance characteristics of the stain(s) cited in this report were developed and its performance characteristic determined by the Dermatopathology Laboratory at [facility], directed by Dr. Christina Sadler. These tests need not be, and therefore are not, approved by the [place] Food and Drug Administration. The tests are used for clinical purposes. Billing Codes Specimen Charges Stain Charges 12610 75697 1 1 53554 1 12:31 PM CDT DERMATOPATHOLOGY LABORATORY Embedded Images 12:31 PM CDT DERMATOPATHOLOGY LABORATORY Pathology/Cytology TISSUE SPECIMEN FROM SKIN / Unknown 07/31/2018 08/01/2018 1:59 PM CDT Miscellaneous samples (specimen) TISSUE SPECIMEN FROM SKIN / Unknown 07/31/2018 08/01/2018 1:59 PM CDT Skip Storey MD LAB - PATHOLOGY/CYTO LOGY ORDERABLES DERMATOPATHOLOGY LABORATORY [facility] - Department of Dermatology [address] [facility] [address] 5th [place] [address], [facility] [phone] documented in this encounter Visit Diagnoses Not on filedocumented in this encounter Care Teams Uniform Cap Operator Relationship Specialty Start Date End Date Laz Lopez MD [address] [place] [id number] PCP - General 03/19/10 09/27/21 Ryan Maloney DO [address] [place] [address] PCP - General 09/28/21 documented as of this encounter
--- OUTSIDE RECORDS SUMMARY | 2024-02-22 10:51 | XMS_ITS | Referral Summary ---
Author Organization [facility] Address [address] [place] [address] Care Team Providers Care Manager Truck Name Role Phone Ryan Maloney DO Primary Care Provider + Source Comments [facility],non-owned Affiliates and Associated Physician Practices is amultiple site organization consisting of ambulatory clinics and [place]in [place]. This disclosure is being madepursuant to the Care Everywhere program and may not contain all information available regarding this patient. Last updated 17.[facility] Active Problems Problem Noted Date Diagnosed Date [...] Orientation Not on file Plan of Treatment Not on file Care Teams Manager Truck Relationship Specialty Start Date End Date Ryan Maloney DO [facility] [place] [address] PCP - General 09/28/21
--- OUTSIDE RECORDS SUMMARY | 2024-02-22 10:53 | XMS_ITS | Encounter Summary ---
Author Organization [facility] Address [address] [place] [address]. [place], [place] [id number] [place] [address] Care Team Providers Care Editor Continuity And Script Name Role Phone Ryan Maloney DO Primary Care Provider + Jo Mathew RN Unavailable [phone] Reason for Visit * Reason Onset Date Comments Hospital Follow Up 02/07/2024 JER admission notification Encounter Details Date Type Department Care Team (Late st Contact Info) Description 02/07/2024 Patient Outreach [facility] Medical Group Family & Internal Medicine [address] [phone] Jo Mathew, RN [address] [facility] [address] [place] [address] Hospital Follow Up (JER admission notification) Social History Tobacco Use Types Packs/Day Years Used Date Smoking Tobacco: Former Cigarettes 1.5 3 1 03/1964 - 1967 Passive Smoke Exposure: Never Smokeless Tobacco: Never Comments:quit Alcohol Use Standard Drinks/Week Comments No 0 (1 standard drink = 0.6 oz pur e alcohol) B1300 Health Literacy Answer Date Recor ded How often do you need to hav e someone help you when you read instructions, pamphlets, or other written material from your doctor or pharmacy? Never 02/07/2024 [facility] Utilities Answer Date Recorded In the past 12 months has [employer], oil, or [employer] threatened to shut off services in your home? No 02/07/2024 Humiliation, Afraid, Rape, and Kick questionnair e Answer Date Recorded Within the last year, have y ou been afraid of your partner or ex-partner? No 02/07/2024 Within the last year, have y ou been humiliated or emotionally abused in other ways by your partner or ex-partner? No Within the last year, have y ou been kicked, hit, slapped, or otherwise physically hurt by your partner or ex-partner? No 02/07/2024 Within the last year, have y ou been raped or forced to have any kind of sexual activity by your partner or ex-partner? No 02/07/2024 Social Connection and Isolat ion Panel [NHANES] Answer Date Recorded In a typical week, how many times do you talk on the phone with family, friends, or neighbors? More than three times a week 02/07/2024 How often do you get togethe r with friends or relatives? Three times a week 02/07/2024 How often do you attend chur or zoroastrianism services? Never 02/07/2024 Do you belong to any clubs o r organizations such as orthodoxy groups, unions, fraternal or athletic groups, or school groups? No 02/07/2024 How often do you attend meet ings of the clubs or organizations you belong to? Never 02/07/2024 Are you , , di vorced, , never , or living with a partner? 02/07/2024 AUDIT-C Answer Date Recorded Q1: How often do you have a drink containing alcohol? Never 02/07/2024 Q2: How many drinks containi ng alcohol do you have on a typical day when you are drinking? Patient does not drink Q3: How often do you have si x or more drinks on one occasion? Never 02/07/2024 Overall Financial Resource Strain (CARDIA) Answe r Date Recorded How hard is it for you to pa y for the very basics like food, housing, medical care, and heating? Not hard at all 02/08/2024 PHQ-2 Answer Date Recorded Patient Health Questionnaire-2 Score 0 06/23/2023 [facility]at ional [facility] - Occupational Stress Questionnaire Answer Date Recorded Do you feel stress - tense, restless, nervous, or anxious, or unable to sleep at night because your mind is troubled all the time - these days? To some extent 02/07/2024 Exercise Vital Sign Answer Date Recorde d On average, how many days pe r week do you engage in moderate to strenuous exercise (like a brisk walk)? 0 days 02/07/2024 On average, how many minutes do you engage in exercise at this level? 0 min 02/07/2024 Hunger Vital Sign Answer Date Recorded Within the past 12 months, y ou worried that your food would run out before you got the money to buy more. Never true 02/07/20 24 Within the past 12 months, t he food you bought just didn't last and you didn't have money to get more. Never true 02/07/2024 PRAPARE - Transportation Answer Date Re corded In the past 12 months, has l ack of transportation kept you from medical appointments or from getting medications? No 01/20 In the past 12 months, has l ack of transportation kept you from meetings, work, or from getting things needed for daily living? No 02/07/2024 Housing Stability Vital Sign Answer Anand e Recorded In the last 12 months, was t here a time when you were not able to pay the mortgage or rent on time? No 02/07/2024 In the past 12 months, how m any times have you moved where you were living? 1 02/07/2024 At any time in the past 12 m [facility], were you homeless or living in a retirement (including now)? No 02/07/2024 Sex and Gender Information Value Date Recorded Sex Assigned at Not on file Legal Sex Male 11:15 AM CURRICULUM COUNSELOR Gender Identity Not on file Sexual Orientation Not on file documented as of this encounter Functional Status * Are you deaf or do you have serious difficulty hearing Answer Date of Assessment Author Status No 07/07/2023 11:18 PM Edmund Key III, RN Active * Are you blind or do you have serious difficulty seeing, even when wearing glasses? Answer Date of Assessment Author Status No 07/07/2023 11:18 PM Edmund Key III, RN Active * Do you have serious difficulty walking or climbing stairs? Answer Date of Assessment Author Status No 07/07/2023 11:18 PM CDT Edmund Finley III, RN Active * Do you have difficulty dressing or bathing? Answer Date of Assessment Author Status No 07/07/2023 11:18 PM CDT Edmund Finley III, RN Active * Because of a physical, mental, or emotional condition, do you have difficulty doing errands alone such as visiting a doctor's office or shopping? Answer Date of Assessment Author Status No 07/07/2023 11:18 PM CDT Edmund Finley III, RN Active documented as of this encounter Mental Status * Question Answer Entry Date Author Status Because of a physical, mental, or emotional condition, do you have serious difficulty concentrating, remembering, or making decisions? No 02/07/2024 12:00 AM CURRICULUM COUNSELOR Emmy Coker RN Active * Because of a physical, mental, or emotional condition, do you have serious difficulty concentrating, remembering, or making decisions? Answer Entry Date Author Status No 02/07/2024 12:00 AM CURRICULUM COUNSELOR Emmy Coker RN Active documented in this encounter Progress Notes * Jo Mathew RN - 02/07/2024 8:32 AM CST .Patient admitted to [facility] on 02/06/24 for kidney stone. disaster recovery coordinator following and will complete TCM call upon discharge. ICULUM COUNSELOR documented in this encounter Plan of Treatment Not on file documented as of this encounter Visit Diagnoses Not on filedocumented in this encounter Additional Health Concerns Assessment Noted Time PHQ-9 Depression Total Score: 1 06/09/19 21 9:12 AM CDT documented as of this encounter Care Teams Editor Continuity And Script Relationship Specialty Start Date End Date Ryan Maloney DO [address] [place] [id number] PCP - General FAMILY PRACTICE 04/20/18 Jo Mathew, RN [address] [facility] [address] [place] [address] Registered Nurse CARE MANAGEMENT 02/07/24 02/08/24 documented as of this encounter
--- OUTSIDE RECORDS SUMMARY | 2024-02-22 10:53 | XMS_ITS | Encounter Summary ---
Author Organization [facility] Address [address] [place] [address]. [place], [place] [address] [place] [address] Care Team Providers Care Electronic Sensing Equipment Assembler Name Role Phone Ryan Maloney Baylee ARELLANO Primary Care Provider + Reason for Visit * Reason Onset Date Comments TCM 02/09/2024 JER 02/05-02/07 Encounter Details Date Type Department Care Team (Late st Contact Info) Description 02/09/2024 Patient Outreach [facility] Medical Group Family & Internal Medicine [address] [phone] Jo Mathew, RN [address] [facility] [address] [place], [place] [id number] TCM (JER 02/05-02/07) Social History Tobacco Use Types Packs/Day Years [...] from your doctor or pharmacy? Never 02/07/2024 [facility] Utilities Answer Date Recorded In the past 12 months has e electric, gas, oil, or water company threatened to shut off services in your [...] How often do you attend chur or hindu services? Never 02/07/2024 Do you belong to any clubs o r organizations such as judaism groups, unions, fraternal or athletic groups, or [...] Recorded Patient Health Questionnaire-2 Score 0 06/23/2023 [facility] of Occupat ional Health - Occupational Stress [...] any time in the past 12 m [facility], were you homeless or living in a detention (including now)? No 02/07/2024 Sex and Gender Information Value Date Recorded Sex Assigned at Not on file Legal Sex Male 11:15 AM DUPLICATING MACHINE OPERATOR Gender Identity Not on file Sexual Orientation [...] Assessment Author Status No 07/07/2023 11:18 PM CDEdmund Matias III, RN Active documented as of this encounter Mental Status * Because of a physical, mental, or emotional condition, do you have serious difficulty concentrating, remembering, or making decisions? Answer Entry Date Author Status No 02/07/2024 12:00 AM DUPLICATING MACHINE OPERATOR Emmy Coker RN Active documented in this encounter Progress Notes * Jo Mathew RN - 02/09/2024 9:58 AM CST Images from the original note were not included. Follow up call to patient post hospitalization Patient admitted to [facility] on 02/06/24 with discharge diagnosis: Kidney stone Discharge date: 02/08/24 Date of Contact: 02/09/24 Patient Status: (Including education, discharge instructions, s/sx to infection, and when to seek medical attn) Spoke with patient, identified self and reason for calling. States he is just sitting and reading. Discussed hospital course, dc instructions, follow up appts, and medications. Denies fever, nausea, or hematuria. Denies changes in breathing. Reports feeling a little constipated, noting he took 2 dulcolax last HS. Reports passing a lot of gas. Educated on causes of constipation and nonmedicinal methods to promote GI motility. Reports having some lower back pain but much improved. Endorses getting abt and taking as prescribed. Water/hydration encouraged. Opportunity provided for questions and patient denies. Instructed on s/s to report to provider and when to seek immediate medical attention.Patient vu of instructions and appreciative of call Pertinent Labs: See [facility] Pertinent Procedures/Imaging performed while inpatient: see [facility] 02/06; CYSTOSCOPY, LEFT RETROGRADE PYELOGRAM, LEFT URETERAL STENT INSERTION Vaccines Given While Inpatient: no Discharge Disposition: Home Any follow up appointments needed to be scheduled: yes - Dr. Jose-office to call patient; patient to call them if not hearing from them by Monday. Declines need for pcp f/u since following up with urology No future appointments. Referrals needed: no Any follow up labs/imaging needed: yes - following up urology for stone treatment and stent removal Have lab/imaging orders been placed: urology arranging Allergies: Review of patient's allergies indicates: Allergen Reactions Mineral [Hydrocodone-Acetaminophen] Nausea Only Medications: [facility] med list reconciled with facility avs Outpatient medications have been reconciled with hospital discharge list. See below for changes. Current Outpatient Medications Medication Sig Dispense Refill B Kzygctf-C-Pniio Acid (DIATX OR) Take 1 tablet by mouth daily. Calcium Carbonate Antacid (CALCIUM CARBONATE OR) Take 600 mg by mouth daily. cephALEXin (KEFLEX) 500 MG capsule Take 1 capsule (500 mg total) by mouth 2 (two) times daily for 10 days. 20 capsule 0 Cholecalciferol (VITAMIN D3) 2000 units Tab Take 0.5 tablets (1,000 Units total) by mouth 2 (two) times a day. Cinnamon Bark Powder Take 1,200 mg by mouth daily. famotidine (PEPCID) 20 MG tablet TAKE 1 TABLET(20 MG) BY MOUTH TWICE DAILY 180 tablet 3 Adanqj-Pvjnv-Atxd Ac-Ca Fructo ([facility]) Tab Take 1 tablet by mouth daily. HYDROcodone-acetaminophen (NORCO) 5-325 MG tablet Take 1 tablet by mouth every 6 (six) hours as needed. Indications: Acute Pain < 3 Day Supply 12 tablet 0 magnesium oxide 250 MG tablet Take 1 tablet (250 mg total) by mouth daily. ondansetron (ZOFRAN-ODT) 4 MG disintegrating tablet Take 1 tablet (4 mg total) by mouth every 8 (eight) hours as needed. 257.14 tablet 0 tamsulosin (FLOMAX) 0.4 MG Cap Take 1 capsule (0.4 mg total) by mouth daily. 30 capsule 0 No current facility-administered medications for this visit. Medication Changes or Discontinued Medications: Does patient have difficulty affording medication: No Do any medications need refilled: No Does patient have access to care and services (rides, etc)? Yes Plan of Care: patient to follow up with pcp and specialists as directed. Cc no longer following at this time ICATING MACHINE OPERATOR documented in this encounter Plan of Treatment Not on file documented as of this encounter Visit Diagnoses Not on filedocumented in this encounter Additional Health Concerns Assessment Noted Time PHQ-9 Depression Total Score: 1 06/09/19 21 9:12 AM CDT documented as of this encounter Care Teams Electronic Sensing Equipment Assembler Relationship Specialty Start Date End Date Ryan Maloney DO [address] [place] [id number] PCP - General FAMILY PRACTICE 04/20/18 documented as of this encounter
--- OUTSIDE RECORDS SUMMARY | 2024-02-22 10:53 | XMS_ITS | Encounter Summary ---
Author Organization [facility] Address [address] [place] [address]. [place], [place] [address] [place] [address] Care Team Providers Care Rn Mds Coordinator Name Role Phone MarcelloRyan alvarado Baylee ARELLANO Primary Care Provider + Reason for Visit * Reason Onset Date Comments Follow Up Call 02/06/2024 JER 02/05- Encounter Details Date Type Department Care Team (Latest Contact Info) Description 02/09/2024 Hospital Follow-up Call [facility] [place] [address] Irma Fox LPN Follow Up Call (JER 02/05-02/08/24) Social History Tobacco Use Types Packs/Day Years [...] from your doctor or pharmacy? Never 02/07/2024 [facility] Utilities Answer Date Recorded In the past [...] week 02/07/2024 How often do you attend [facility] or catholic services? Never 02/07/2024 Do you belong to any clubs o r organizations such as christianity groups, unions, fraternal or athletic groups, or [...] Recorded Patient Health Questionnaire-2 Score 0 06/23/2023 [facility] of Occupat ional Health - Occupational Stress [...] No 02/07/2024 Housing Stability Vital Sign Answer Aannd e Recorded In the last 12 months, was t here a time when you were not able to pay the mortgage or rent on time? No 02/07/2024 In the past 12 months, how m any times have you moved where you were living? 1 02/07/2024 At any time in the past 12 m [facility], were you homeless or living in a retirement (including now)? No 02/07/2024 Sex and Gender Information Value Date Recorded Sex Assigned at Not on file Legal Sex Male 11:15 AM BLUE SPLIT TRIMMER Gender Identity Not on file Sexual Orientation [...] Date Author Status No 02/07/2024 12:00 AM BLUE SPLIT TRIMMER Emmy Coker RN Active documented in this encounter Plan of Treatment Not on file documented as of this encounter Visit Diagnoses Not on filedocumented in this encounter Additional Health Concerns Assessment Noted Time PHQ-9 Depression Total Score: 1 06/09/19 21 9:12 AM CDT documented as of this encounter Care Teams Rn Mds Coordinator Relationship Specialty Start Date End Date Ryan Maloney DO [address] [place] [id number] PCP - General FAMILY PRACTICE 04/20/18 documented as of this encounter
--- OUTSIDE RECORDS SUMMARY | 2024-02-22 10:53 | XMS_ITS | Encounter Summary ---
Author Organization [facility] Address [address] [place] [address]. 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 [place] [address] Phone: tel: Referral ID Status Reason Start Date Expiration Date V isits Requested Visits Authorized [id number] Pending Review 02/07/2024 02/06/2025 1 1 TRUCTION JOB TITLES * Imaging (Emergency) - New Request Specialty Diagnoses / Procedures Referred By Contac t Referred To Contact RADIOLOGY Procedures CT ABD+PEL WO CON Dina Valdes PA [address] [place] [address] Phone: tel: fax: Referral ID Status Reason Start Date Expiration Date V isits Requested Visits Authorized [id number] New Request 02/06/2024 02/05/2025 1 1 TRUCTION JOB TITLES Reason for Visit * Reason Comments Flank Pain * Auth/Cert (Routine) Specialty Diagnoses / Procedures Referred By Ana martin Referred To Contact Diagnoses Kidney stone Flank pain Procedures NONE Tammi Gomez MD [address] [place] [address] Phone: tel: [phone] fax: Referral ID Status Reason Start Date Expiration Date Visits Re quested Visits Authorized [id number] 1 1 Encounter Details Date Type Department Care Team (Late st Contact Info) Description 02/06/2024 6:46 PM CONSTRUCTION JOB TITLES - 02/08/2024 3:26 PM CONSTRUCTION JOB TITLES Hospital Encounter [facility] [place] [address] Quan Bonner MD [address] [address] Tammi Gomez MD [address] [place] [address] [phone] (Work) Zabrina Newman MD [address] [place], [place] [phone] (Work) Flank Pain Discharge Disposition: Home or Self Care (Routine Discharge) Social History Tobacco Use Types Packs/Day Years [...] from your doctor or pharmacy? Never 02/07/2024 [facility] Utilities Answer Date Recorded In the past 12 months has [employer], oil, or [employer] threatened to shut off services in your [...] How often do you attend chur or baptism services? Never 02/07/2024 Do you belong to any clubs o r organizations such as yazidism groups, unions, fraternal or athletic groups, or [...] Recorded Patient Health Questionnaire-2 Score 0 06/23/2023 [place] [facility] - Occupational Stress [...] any time in the past 12 m [facility], were you homeless or living in a group home (including now)? No 02/07/2024 Sex and Gender Information Value Date Recorded Sex Assigned at Not on file Legal Sex Male 11:15 AM CONSTRUCTION JOB TITLES Gender Identity Not on file Sexual Orientation Not on file documented as of this encounter Last Filed Vital Signs Vital Sign Reading Time Taken Comments Blood Pressure 121/60 02/08/2024 11:06 AM CONSTRUCTION JOB TITLES Pulse 63 02/08/2024 11:06 AM CONSTRUCTION JOB TITLES Temperature 36.6 ??C (97.8 ??F) 02/08/2024 1 1:00 AM CONSTRUCTION JOB TITLES Respiratory Rate 23 02/08/2024 11:0 6 AM CONSTRUCTION JOB TITLES Oxygen Saturation 98% 02/08/2024 11: 06 AM CONSTRUCTION JOB TITLES Inhaled Oxygen Concentration - - Weight 72.9 kg (160 lb 11.5 oz) 02/08/2024 4:00 AM CONSTRUCTION JOB TITLES Height 170.2 cm (5' 7 ) 02/06/2024 6:25 PM CONSTRUCTION JOB TITLES Body Mass Index 25.17 02/06/2024 6:25 PM CONSTRUCTION JOB TITLES documented in this encounter Functional Status * Are you deaf or do you have serious difficulty hearing Answer Date of Assessment Author Status No 07/07/2023 11:18 PM CDEdmund Matias III, RN Active * Are you blind [...] PM Edmund Key III, RN Active * Because of a physical, mental, or emotional condition, do you have difficulty doing errands alone such as visiting a doctor's office or shopping? Answer Date of Assessment Author Status No 07/07/2023 11:18 PM Edmund Key III, RN Active documented as of this encounter Mental Status * Question Answer Entry Date Author Status Because of a physical, mental, or emotional condition, do you have serious difficulty concentrating, remembering, or making decisions? No 02/07/2024 12:00 AM CONSTRUCTION JOB TITLES Emmy Coker RN Active * Because of a physical, mental, or emotional condition, do you have serious difficulty concentrating, remembering, or making decisions? Answer Entry Date Author Status No 02/07/2024 12:00 AM CONSTRUCTION JOB TITLES Emmy Coker RN Active documented in this encounter Discharge Summaries * Zabrina Newman MD - 02/08/2024 2:32 PM CST Images from the original note were not included. Hospitalist Discharge Summary Patient ID: Richard Pringle. male. 1945. Admit date: 02/06/2024 6:46 PM Discharge date: 02/08/2024 3:26 PM Admitting Physician: Tammi Gomez MD Primary Care Physician: Ryan Maloney DO Discharge Physician: Dr Newman Primary Diagnoses: Kidney stone , tasia, uti Admission Condition: poor Discharged Condition: Stable Code Status: Prior Chief Complaint: Chief Complaint Patient presents with Flank Pain Reason for hospitalization: flank pain HPI per admitting physician: Richard Pringle is a very pleasant 78-year-old male With past medical history significant for CLL diagnosed December 2017, cold agglutinin hemolytic anemia, patient received Rituxan weekly for 5 doses with last dose August 16, 2023, hereditary hemochromatosis and patient is followed by Dr. Little at [facility], patient was seen in our ED on 01/09/2024 and was diagnosed with kidney stone. Patient presents to our ED secondary to left flank pain that started today, progressively getting worse, 9 out of 10 in severity, sharp in nature, patient reported dysuria 2 days ago. No nausea no vomiting. No hematuria. No fever or chills. While in ED patient had an episode of retrosternal chest pain, currently is chest pain-free. In ED patient was evaluated, CT abdomen and office showed approximate 4 mm calculusin the mid left ureter with proximal hydronephrosis, patient was given IV Rocephin, urology were consulted and patient was admitted for further evaluation and treatment. Hospital Course: Kidney stone: Patient admitted to the medical floor CT showed 4 mm calculus in the mid left ureter with proximal hydronephrosis UA positive for UTI Patient started on Rocephin, continue Urology have been consulted Keep patient n.p.o. after midnight Pain control -02/06 cystoscopy today, had stent placed, will have further stone removeal per urologist -Cr still elevated, continue IV fluids CLL, cold agglutinin hemolytic anemia, hereditary hemochromatosis: Patient finished Rituxan August 16, 2023 White count 14, hemoglobin 11.3, platelets 178 Compared to white count 21, hemoglobin 7.2, platelets 311 on 07/10/[address] Little Discharge plan discussed with patient. Specific follow-up testing/results for PCP: Discharge Exam: Filed Vitals: 02/08/24 0700 02/08/24 0729 02/08/24 1100 02/08/24 1106 BP: 127/63 121/60 Pulse: 85 66 63 Resp: 22 23 23 Temp: 98 ??F (36.7 ??C) 97.8 ??F (36.6 ??C) TempSrc: Oral SpO2: 98% 98% 98% Weight: Height: -GENERAL: No acute distress, Well nourished -HEAD: Normocephalic, Atraumatic -EYES: Extraocular movements intact -LUNGS: Effort normal. Clear to auscultation bilaterally, No wheezes, No crackles, No ronchi -CVS: Regular rate and rhythm, S1 and S2 normal -ABDOMEN: Soft, Non tender, Non distended -EXT: No edema -NEURO: Awake, alert, oriented, No gross neuro deficits -SKIN: No significant rashes Consults: urology Significant Diagnostic Studies: Recent Labs Lab 02/06/24182602/07/24 0545 02/08/24 0405 WBC 14.53* 9.62 17.25* RBC 2.68* 2.30* 2.20* HGB 11.3* 9.9* 10.0* HCT 27.5* 23.9* 23.5* MCV 102.6* 103.9* 106.8* MCH 42.2* 43.0* 45.5* MCHC 41.1* 41.4* 42.6* PLT 178 204 166 RDW 21.1* 20.2* 22.4* MPV 12.8* 13.0* 12.4* PERNEU -- 77.7 -- PERLYM -- 13.4 -- PERMON -- 6.8 -- NEUC 12.35* 7.47 15.53* LYMC 1.16 1.29 0.69* MONOC 0.87* 0.65 1.04* EOSC -- 0.06 -- BASOC 0.15* 0.05 -- DTYPE MANUAL DIFFERENTIAL AUTOMATED DIFFERENTIAL MANUAL DIFFERENTIAL Recent Labs Lab 02/06/24182602/07/24 0545 02/08/24 0405 NA 136 137 140 K 4.3 5.1 4.1 CL 103 109 109 CO2 25.7 26.6 24.9 AGAP 7.3 1.4* 6.1 BUN CR 1.56* 1.24 1.07 BUNCREATININ 11.5 14.5 15.9 GLU 109* 127* 140* CA 9.6 8.5 9.0 TP -- 5.9* 6.1* ALB -- 3.2* 3.2* TBIL -- 2.7* 2.6* ALKP -- 131 127 AST -- 147* 55* ALT -- 123* 83* Recent Labs Lab 02/07/24 0545 HGBA1C 3.8 TSH 1.920 Recent Labs Lab 02/07/24 0545 INR 1.2 Recent Labs Lab 02/06/24 2333 02/07/24 0545 TROP 12 13 No results for input(s): LACTICACID , PROCT in the last 168 hours. No results for input(s): PH , PCO2 , PO2 , [id number] , BICARBWB , BASEDEFICIT , BASEEXCESS in the last 168 hours. Results for orders placed or performed during the hospital encounter of 07/07/23 URINALYSIS, AUTO, COMPLETE Collection Time: 07/07/23 6:55 PM Result Value Ref Range COLOR (U) DARK YELLOW TRANSPARENCY CLEAR SPECIFIC GRAVITY (U) 1.015 1.000 - 1.030 U PH 6.5 5.0 - 9.0 LEUKOCYTES (U) NEGATIVE NEGATIVE NITRITES NEGATIVE NEGATIVE PROTEIN RANDOM (U) 1+ (A) NEGATIVE GLUCOSE (U) NEGATIVE NEGATIVE KETONES MG/DL (U) TRACE (A) NEGATIVE BILIRUBIN (U) NEGATIVE NEGATIVE BLOOD (U) 2+ (A) NEGATIVE WBC/HPF 0-5 0 - 5 /HPF RBC/HPF 0-5 0 - 5 /HPF EPI/HPF FEW /HPF CULTURE & SENSITIVITY INDICATED? CULTURE IS NOT INDICATED Radiology Reports : SURG XR RETROGRD UROGRAPHY Result Date: 02/08/2024 [facility] [address] [place], [place] [address] Intraoperative fluoroscopic views of the retrograde urography History: Left ureteralstent insertion, pyelogram, cystoscopy Dose: Total Dose Area Product: 3.3552 (Gycm2). Technique: Int raoperative fluoroscopy control images obtained. Findings: 2 submitted images demonstrate partial opacification of the left renal collecting system. A left ureteral stent is in position. Impression: Fluoroscopic spot views of left retrograde urography with stent placement obtained for intraoperative control purposes and evaluated postoperatively. Referred By: Interpreted By: Skip Quiñones MD, 02/08/2024 6:13 AM ECG 12 lead Result Date: 02/07/[address] Test Date: 2024-02-06 Pat Name: RICHARD PRINGLE Department: 41 Room: 3 Gender: Male [place]led[place]: : 1945 Requested By: QUAN BONNER Order Number: [id number] Reading MD: Marie Pickering Measurements Intervals AxisRate: 81 P: 60 OK: 133 QRS: 23 QRSD: 121 T: 14 QT: 368 QTc: 428 Interpretive Statements SINUS RHYTHM MODERATE INTRAVENTRICULAR CONDUCTION DELAY [110+ ms QRS DURATION] NONSPECIFIC T-WAVE ABNORMALITYCompared to ECG 01/09/2024 01:38:33 Intraventricular conduction delay now present T-wave abnormality now present TRUCTION JOB TITLES CT ABD+PEL WO CON Result Date: 02/06/2024 [facility] [address] [place], [place] [address] EXAM: CT ABD+PEL WO CON INDICATION: Left flank pain with concern for urinary tract stone disease. TECHNIQUE: Noncontrast CT of the abdomen and pelvis, using urinary tract stone protocol, was performed. Coronal and sagittal reformatted images were created and reviewed. A radiation dose lowering technique was used for this procedure, which may include, but is not limited to, dose reduction technique, automated exposure control, the use of iterative reconstruction, ALARA (As Low As Reasonably Achievable) techniques, and Image Gently techniques. COMPARISON EXAM: CT kidney stone protocol from 01/09/2024. F INDINGS: There is an approximate 4 mm calculus in the mid left ureter, a couple of centimeters above the umbilicus and at about the L3-4 disc space level. Moderate proximal hydroureter hydronephrosiswith surrounding inflammation. This could be a reflection of mild migration of the proximal ureteral calculus seen on the comparison study. No other ureteral or bladder stone. Coarse parenchymal calcifications in the medial lower pole of the left kidney and a few punctate and sub-3 mm nonobstructing nephroliths. Exophytic cortical cyst in the mid left kidney again noted. Moderate prostate enlargement. Calcified pelvic phleboliths. Diffuse hepatic steatosis. The gallbladder is surgically absent.Normal sized spleen. Pancreas and adrenal glands are unremarkable. No bowel obstruction or free air. Colonic diverticula with no diverticulitis. Normal appendix. No abdominal or pelvic adenopathy or free fluid. Normal caliber abdominal aorta. No consolidation or effusion in either lung base. There is a small hiatal hernia. Skeletal structures are grossly intact. There is a grade 1-2 anterolisthesis of L5 on S1 with chronic bilateral pars defects. No acute skeletal abnormalities. IMPRESSION: APPROXIMATE 4 MM CALCULUS IN THE MID LEFT URETER WITH PROXIMAL HYDROURETER AND HYDRONEPHROSIS. THIS MAY REFLECT SLIGHT INTERVAL MIGRATION OF THE PROXIMAL URETERAL STONE ON THE 01/09/2024 EXAM. NONOBSTRUCTING BILATERAL NEPHROLITHS. EXOPHYTIC LEFT RENAL CYST. MODERATE PROSTATE ENLARGEMENT. DIFFUSE HEPATIC STEATOSIS. COLONIC DIVERTICULA WITH NO DIVERTICULITIS. SMALL HIATAL HERNIA. Referred By: Interpreted By: Dionicio Kaufman MD, 02/06/2024 7:57 PM Discharge Medications: Medication List START taking these medications Morning Afternoon Evening Bedtime As Needed cephALEXin 500 MG capsule Commonly known as: KEFLEX Take 1 capsule (500 mg total) by mouth 2 (two) times daily for 10 days. Signed by: Dr. Zabrina Newman 1 capsule 1 capsule CONTINUE taking these medications Morning Afternoon Evening Bedtime As Needed CALCIUM CARBONATE OR Take 600 mg by mouth daily. 600 mg Cinnamon Bark Powd Take 1,200 mg by mouth daily. 1,200 mg DIATX OR Take 1 tablet by mouth daily. 1 tablet famotidine 20 MG tablet Commonly known as: PEPCID TAKE 1 TABLET(20 MG) BY MOUTH TWICE DAILY Signed by: Dr. Ryan Maloney 1 tablet 1 tablet HYDROcodone-acetaminophen 5-325 MG tablet Commonly known as: NORCO Take 1 tablet by mouth every 6 (six) hours as needed. Indications: Acute Pain < 3 Day Supply Signed by: Dr. Ketan Uriarte 1 tablet magnesium oxide 250 MG tablet Commonly known as: MAG-OX Take 1 tablet (250 mg total) by mouth daily. 1 tablet Move Free Joint Health Advance Tabs Take 1 tablet by mouth daily. 1 tablet ondansetron 4 MG disintegrating tablet Commonly known as: ZOFRAN-ODT Take 1 tablet (4 mg total) by mouth every 8 (eight) hours as needed. Last time this was given: Ask your nurse or doctor Signed by: Dr. Ketan Uriarte Last time this was given: Ask your nurse or doctor 1 tablet tamsulosin 0.4 MG Caps Commonly known as: FLOMAX Take 1 capsule (0.4 mg total) by mouth daily. Signed by: Dr. Zabrina Newman 1 capsule Vitamin D3 50 mcg tablet Commonly known as: cholecalciferol Take 0.5 tablets (1,000 Units total) by mouth 2 (two) times a day. 0.5 tablets 0.5 tablets STOP taking these medications azithromycin 250 MG tablet Commonly known as: Zithromax cefdinir 300 MG Caps capsule Commonly known as: OMNICEF GALZIN OR Disposition: Home with self care Patient Instructions: Follow-up appointments: follow up with urology Time Spent on Discharge: greater than 30 minutes Signed: Zabrina Newman MD TRUCTION JOB TITLES documented in this encounter Discharge Instructions * Attachments The following attachments cannot be sent through Care Everywhere. * Cystoscopy Discharge Instructions (North Korean) * Ureteral Stent Discharge Instructions ([place]) documented in this encounter Medications at Time of Discharge B Xcbrbmx-Q-Fifto Acid (DIATX OR) Take 1 tablet by mouth daily. Calcium Carbonate Antacid (CALCIUM CARBONATE OR) Take 300 mg by mouth every evening. Cholecalciferol (VITAMIN D3) 2000 units Tab Take 1 tablet (50 mcg total) by mouth every evening. Cinnamon Bark Powder Take 1,200 mg by mouth daily. famotidine (PEPCID) 20 MG tabletIndications:Ga stroesophageal reflux disease without esophagitis TAKE 1 TABLET(20 MG) BY MOUTH TWICE DAILY 180 tablet 3 08/16/2023 Uksjvi-Kxacv-Zvgq Ac-Ca Fructo (MOVE FREE [facility]) Tab Take 1 tablet by mouth daily. magnesium oxide 250 MG tablet Take 1 tablet (250 mg total) by mouth nightly at bedtime. tamsulosin (FLOMAX) 0.4 MG Cap Take 1 capsule (0.4 mg total) by mouth daily. 30 capsule 02/08/2024 cephALEXin (KEFLEX) 500 MG capsule Take 1 capsule (500 mg total) by mouth 2 (two) times daily for 10 days. 20 capsule 02/08/2024 4 HYDROcodone-acetamin ophen (NORCO) 5-325 MG tabletIndications:Ac chicken ranch Pain < 3 Day Supply Take 1 tablet by mouth every 6 (six) hours as needed. Indications: Acute Pain < 3 Day Supply 12 tablet 01/09/2024 4 ondansetron (ZOFRAN-ODT) 4 MG disintegrating tablet Take 1 tablet (4 mg total) by mouth every 8 (eight) hours as needed. 257.14 tablet 01/09/2024 4 documented as of this encounter Progress Notes * Shanell Boyer RN - 02/08/2024 3:51 PM CST Problem: Discharge Planning Goal: Knowledge of discharge instructions Outcome: Adequate for Discharge Problem: Pain control/comfort Goal: Promote pain control/comfort Outcome: Adequate for Discharge Problem: Skin integrity, Impaired-wound Goal: Absence of new skin breakdown Outcome: Adequate for Discharge Goal: Evidence of wound healing Outcome: Adequate for Discharge Problem: Skin integrity, Impaired-pressure injury/ulcer Goal: Absence of new skin breakdown Outcome: Adequate for Discharge Goal: Evidence of pressure injury/ulcer healing Outcome: Adequate for Discharge Problem: Skin integrity, at risk Goal: Absence of new skin breakdown Outcome: Adequate for Discharge Problem: Moisture associated skin impairment Goal: Reduce moisture exposure Outcome: Adequate for Discharge Goal: Evidence of wound healing Outcome: Adequate for Discharge Goal: Evidence of pressure injury/ulcer healing Outcome: Adequate for Discharge Goal: Absence of new skin breakdown Outcome: Adequate for Discharge Problem: Infection - Risk of, Central Venous Catheter-Associated Bloodstream Infection Goal: Absence of Central Venous Catheter Associated Bloodstream Infection Signs and Symptoms Outcome: Adequate for Discharge Problem: Reduced risk for falls/injury Goal: Reduced Risk for Falls/Injury Outcome: Adequate for Discharge Goal: Reduced Risk of Confusion (Acute vs Chronic) Outcome: Adequate for Discharge Goal: Reduced Risk of Symptomatic Depression Outcome: Adequate for Discharge Goal: Reduced Risk of Altered Elimination Outcome: Adequate for Discharge Goal: Reduced Risk of Dizziness/Vertigo/Balance Outcome: Adequate for Discharge Goal: Reduced Risk of Polypharmacy Outcome: Adequate for Discharge TRUCTION JOB TITLES * Andreia Tinoco NP - 02/08/2024 3:12 PM CST Images from the original note were not included. Subjective: NAEO; patient reports feeling OK today. Has been pushing fluids. No nausea. Mild LLQ abd tendernessrelieved with PRN Tylenol. Allergies Allergen Reactions [place] [Hydrocodone-Acetaminophen] Nausea Only Objective: Filed Vitals: 02/08/24 0700 02/08/24 0729 02/08/24 1100 02/08/24 1106 BP: 127/63 121/60 Pulse: 85 66 63 Resp: Temp: 98 ??F (36.7 ??C) 97.8 ??F (36.6 ??C) TempSrc: Oral SpO2: 98% 98% 98% Weight: Height: I/O last 3 completed shifts: In: 420 [P.O.:420] Out: 1575 [Urine:1575] PHYSICAL EXAM General: Alert, cooperative, no distress, appears stated age Resp: EWOB, symmetric chest rise Abdomen: Soft, LLQ tender, non-distended : Left flank mildly tender Psych: Affect and behavior normal Labs: Recent Labs Lab 02/06/24 1827 02/07/24 0545 02/08/24 0405 WBC 14.53* 9.62 17.25* RBC 2.68* 2.30* 2.20* HGB 11.3* 9.9* 10.0* HCT 27.5* 23.9* 23.5* MCV 102.6* 103.9* 106.8* MCH 42.2* 43.0* 45.5* MCHC 41.1* 41.4* 42.6* PLT 178 204 166 RDW 21.1* 20.2* 22.4* MPV 12.8* 13.0* 12.4* PERNEU -- 77.7 -- PERLYM -- 13.4 -- PERMON -- 6.8 -- NEUC 12.35* 7.47 15.53* LYMC 1.16 1.29 0.69* MONOC 0.87* 0.65 1.04* EOSC -- 0.06 -- BASOC 0.15* 0.05 -- DTYPE MANUAL DIFFERENTIAL AUTOMATED DIFFERENTIAL MANUAL DIFFERENTIAL Recent Labs Lab 02/06/24 1827 02/07/24 0545 02/08/24 0405 NA 136 137 140 K 4.3 5.1 4.1 CL 103 109 109 CO2 25.7 26.6 24.9 AGAP 7.3 1.4* 6.1 BUN 17 CR 1.56* 1.24 1.07 BUNCREATININ 11.5 14.5 15.9 GLU 109* 127* 140* CA 9.6 8.5 9.0 TP -- 5.9* 6.1* ALB -- 3.2* 3.2* TBIL -- 2.7* 2.6* ALKP -- 131 127 AST -- 147* 55* ALT -- 123* 83* Recent Labs Lab 02/07/24 0545 INR 1.2 Imaging: No results found. Assessment/Plan: SNOMED CT(R) 1. Kidney stone KIDNEY STONE 2. Flank pain FLANK PAIN S/p cystoscopy, left retrograde pyelogram, left ureteral stent placement with Dr. Kelley 02/07/24 for obstructing ureteral stone with hydronephrosis. Cloudy urine noted. Urine culture pending on IV ceftriaxone. Leukocytosis, WBC 17.3 from 9.6 (?reactive). Afebrile. Renal function stable, Cr 1.07. Follow urine culture for antibiotic guidance. Plan to follow up with Dr. Monroy at [facility] (patient preference) for stone treatment and stent management in the coming weeks. Andreia Tinoco APRN TRUCTION JOB TITLES * Danitza Lua RN - 02/08/2024 2:46 PM CST 02/08/24 1446 Discharge Planning Living Arrangements Spouse/significant other Support Systems Children Type of Residence Private residence Assistance Needed No Patient expects to be discharged to: Home or Self care no new needs Insurance Authorization needed No Does the patient need discharge transport arranged? No IV Infusion at discharge No DME Needed at Discharge No TRUCTION JOB TITLES * Danitza Lua RN - 02/08/2024 2:46 PM CST 02/08/24 1445 Interdisciplinary Group Conference Team Members Present Physician;Case/Care management Physician present for group conference Paty solo halo Patient Current Status Paient current status Inpatient Barriers to Discharge Inpatient Review Other follow up (Comment) pt discharging today Patient expects to be discharged to Patient expects to be discharged to: Home or Self care no new needs TRUCTION JOB TITLES * Emmy Coker RN - 02/07/2024 9:33 PM CST Problem: Discharge Planning Goal: Knowledge of discharge instructions Outcome: Progressing Problem: Pain control/comfort Goal: Promote pain control/comfort Outcome: Progressing Problem: Skin integrity, Impaired-wound Goal: Absence of new skin breakdown Outcome: Progressing Goal: Evidence of wound healing Outcome: Progressing Problem: Skin integrity, Impaired-pressure injury/ulcer Goal: Absence of new skin breakdown Outcome: Progressing Goal: Evidence of pressure injury/ulcer healing Outcome: Progressing Problem: Skin integrity, at risk Goal: Absence of new skin breakdown Outcome: Progressing Problem: Moisture associated skin impairment Goal: Reduce moisture exposure Outcome: Progressing Goal: Evidence of wound healing Outcome: Progressing Goal: Evidence of pressure injury/ulcer healing Outcome: Progressing Goal: Absence of new skin breakdown Outcome: Progressing Problem: Infection - Risk of, Central Venous Catheter-Associated Bloodstream Infection Goal: Absence of Central Venous Catheter Associated Bloodstream Infection Signs and Symptoms Outcome: Progressing Problem: Reduced risk for falls/injury Goal: Reduced Risk for Falls/Injury Outcome: Progressing Goal: Reduced Risk of Confusion (Acute vs Chronic) Outcome: Progressing Goal: Reduced Risk of Symptomatic Depression Outcome: Progressing Goal: Reduced Risk of Altered Elimination Outcome: Progressing Goal: Reduced Risk of Dizziness/Vertigo/Balance Outcome: Progressing Goal: Reduced Risk of Polypharmacy Outcome: Progressing TRUCTION JOB TITLES * Danitza Lua RN - 02/07/2024 4:27 PM CST 02/07/24 1626 Interdisciplinary Group Conference Team Members Present Case/Care management Patient Current Status Paient current status Inpatient Barriers to Discharge Inpatient Review Barriers to Discharge Inpatient Other (Comment) Other follow up (Comment) ureteral stent placed today, continue with IV abx for infection, possibled/c tomorrow Patient expects to be discharged to Patient expects to be discharged to: Home or Self care no new needs Patient stated that the MD said possible discharge to home tomorrow. TRUCTION JOB TITLES * Danitza Lua RN - 02/07/2024 4:18 PM CST 02/07/24 1615 Referral Data Source of Information Patient;Other Family Members (nazario [place]) Patient Information Primary Caregiver Self Current living Situation Spouse/significant other Type of Residence Private residence (1 story with a basement, ramp to enter) Support System Immediate family;Pt Provides Care for Another Person (Patient assists spouse with some ADL's and drives.) Are you employed? Retired Recent Hospitalization Recent Hospitalization within 30 days No Baseline ADL's Functional Status Independent DC screening tool This is a screening tool it does not take the place of a physical or occupational therapy evaluation. The screening is to screen the patient for what services and destination would be beneficial for patient for next level of care Conversation with the patient/family Will the patient be returning to prior living situation with no new identified needs? Yes Based on the screening the DC plan for consideration is: Patient expects to be discharged to: Home or Self care no new needs Adequate Resources Available Adequate Resources Yes NCM performed bedside interview, verified patient's name and : Support: son and daughter Ambulation: Reports independent prior to admission. DME products: WWR, CPAP, and w/c for spouse Medical Devices: ureteral stent placed ADLs: Reports independent prior to admission. Transport Home: family/friend A/O: Patient is alert/oriented x4 Communication: Patient can communicate without deficits. Home Health: none Occupation: retired Pharmacy: Financial Concerns: No financial concerns reported PCP/Insurance Plan: Ryan Maloney/Medicare A&B and BCBS supp Discharge needs: none anticipated Patient's spouse is not [facility] SNF for therapy. Patient and Son/Leo requested that the son and/or daughter be called first. Both live nearby and can assist the patient if needed. Patient did have a fall a couple months ago in the home. Patient and son stated that the patient has had bladder cancer in the past. RNCM will follow case daily and will continuously evaluate discharge needs based on recommendationsand treatment course. TRUCTION JOB TITLES TRUCTION JOB TITLES * LOPEZ Naqvi - 02/07/2024 3:09 PM CST Department of Speech-Language Pathology Clinical Swallow Evaluation Report Episode of Care: Initial evaluation Diagnosis: Kidney stone Referring Physician: Dr. Gomez Subjective: The pt is a 78 year old male referred to our service for swallowing evaluation after self report ofsome recent pill dysphagia and difficulty swallowing his saliva when he came into the ER. The pt otherwise denies any significant trouble and he eats regular diet/thin liquids. Upon arrival the pt isawake, alert. His son is also present. Current diet order is general diet. Past Medical History: Diagnosis Date Anemia Cataract Chronic lymphocytic leukemia ([facility] HHS/HCC) GERD (gastroesophageal reflux disease) Immune deficiency disorder ([facility]) Kidney stone Objective: Oral Phase: The oral cavity is clear. The pt has his own dentition. Oral motor exam is largely within normal limits. The pt is given thin liquids, soft solids, cracker and applesauce. Lip seal is intact. Mastication time appears quick. No residual, pocketing or oral holding. Pharyngeal Phase: The pharyngeal phase is limited at the bedside and cannot diagnose aspiration. The pt does not exhibit any significant overt s/s across liquids or solids. He denies any globus sensation. Laryngeal movement is felt and subjectively judged as quick. The voice remains clear. Assessment: No immediate concern for dysphagia at this time. Plan: Recommend continue current diet- regular with no modifications needed, thin liquids, straw ok. Medsper pt preference. No further skilled ST indicated at this time. The pt and his son were without further questions. Results relayed to LULI Godinez. Appreciate this consult. TRUCTION JOB TITLES * Zabrina Newman MD - 02/07/2024 12:52 PM CST Hospitalist Daily Progress Note Subjective Patient had cystoscopy and stent placement today. Doing well this afternoon, still some pain. Cr still elevated, continue IV fluids and monitor, await urine cx results Objective Filed Vitals: 02/07/24 1035 02/07/24 1040 02/07/24 1045 02/07/24 1100 BP: 116/62 125/59 Pulse: 64 63 63 Resp: 17 16 17 19 Temp: 97.3 ??F (36.3 ??C) 97.7 ??F (36.5 ??C) TempSrc: Temporal Oral SpO2: 98% 96% 97% 97% Weight: Height: Intake/Output 24H Total: Intake/Output Summary (Last 24 hours) at 02/07/2024 1252 Last data filed at 02/07/2024 1247 Gross per 24 hour Intake 1000 ml Output 1625 ml Net -625 ml Physical Exam: -GENERAL: No acute distress, Well nourished -HEAD: Normocephalic, Atraumatic -EYES: Extraocular movements intact -LUNGS: Effort normal, Clear to auscultation bilaterally, No wheezes, No crackles, No ronchi -CVS: Regular rate and rhythm, S1 and S2 normal -ABDOMEN: Soft, Non tender, Non distended -EXT: No edema -NEURO: Awake, alert, oriented, No gross neuro deficits -SKIN: No significant rashes Medications cefTRIAXone 1 g Intravenous Q24H sodium chloride acetaminophen, fentaNYL, fentaNYL, noivdiuvo-kyqwwizn-cpfpbydgbfp, ondansetron, polyethylene glycol Labs, Imaging, Other Studies Recent Labs Lab 02/06/24182602/07/24 0545 WBC 14.53* 9.62 RBC 2.68* 2.30* HGB 11.3* 9.9* HCT 27.5* 23.9* MCV 102.6* 103.9* MCH 42.2* 43.0* MCHC 41.1* 41.4* PLT 178 204 RDW 21.1* 20.2* MPV 12.8* 13.0* PERNEU -- 77.7 PERLYM -- 13.4 PERMON -- 6.8 NEUC 12.35* 7.47 LYMC 1.16 1.29 MONOC 0.87* 0.65 EOSC -- 0.06 BASOC 0.15* 0.05 DTYPE MANUAL DIFFERENTIAL AUTOMATED DIFFERENTIAL Recent Labs Lab 02/06/24182602/07/24 0545 NA 136 137 K 4.3 5.1 CL 103 109 CO2 25.7 26.6 AGAP 7.3 1.4* BUN 18 18 CR 1.56* 1.24 BUNCREATININ 11.5 14.5 GLU 109* 127* CA 9.6 8.5 TP -- 5.9* ALB -- 3.2* TBIL -- 2.7* ALKP -- 131 AST -- 147* ALT -- 123* Recent Labs Lab 02/07/24 0545 HGBA1C 3.8 TSH 1.920 Recent Labs Lab 02/07/24 0545 INR 1.2 Recent Labs Lab 02/06/24 2333 02/07/24 0545 TROP 12 13 No results for input(s): LACTICACID , PROCT in the last 168 hours. No results for input(s): PH , PCO2 , PO2 , [id number] , BICARBWB , BASEDEFICIT , BASEEXCESS in the last 168 hours. Results for orders placed or performed during the hospital encounter of 07/07/23 URINALYSIS, AUTO, COMPLETE Collection Time: 07/07/23 6:55 PM Result Value Ref Range COLOR (U) DARK YELLOW TRANSPARENCY CLEAR SPECIFIC GRAVITY (U) 1.015 1.000 - 1.030 U PH 6.5 5.0 - 9.0 LEUKOCYTES (U) NEGATIVE NEGATIVE NITRITES NEGATIVE NEGATIVE PROTEIN RANDOM (U) 1+ (A) NEGATIVE GLUCOSE (U) NEGATIVE NEGATIVE KETONES MG/DL (U) TRACE (A) NEGATIVE BILIRUBIN (U) NEGATIVE NEGATIVE BLOOD (U) 2+ (A) NEGATIVE WBC/HPF 0-5 0 - 5 /HPF RBC/HPF 0-5 0 - 5 /HPF EPI/HPF FEW /HPF CULTURE & SENSITIVITY INDICATED? CULTURE IS NOT INDICATED Imaging ECG 12 lead Result Date: 02/07/[address] Test Date: 2024-02-06 Pat Name: RICHARD PRINGLE Department: 41 Room: 3 Gender: Male Sledger: : 1945 Requested By: QUAN BONNER Order Number: [id number] Reading MD: Marie Pickering Measurements Intervals AxisRate: 81 P: 60 OK: 133 QRS: 23 QRSD: 121 T: 14 QT: 368 QTc: 428 Interpretive Statements SINUS RHYTHM MODERATE INTRAVENTRICULAR CONDUCTION DELAY [110+ ms QRS DURATION] NONSPECIFIC T-WAVE ABNORMALITYCompared to ECG 01/09/2024 01:38:33 Intraventricular conduction delay now present T-wave abnormality now present TRUCTION JOB TITLES CT ABD+PEL WO CON Result Date: 02/06/2024 [facility] [address] [place], [place] [address] EXAM: CT ABD+PEL WO CON INDICATION: Left flank pain with concern for urinary tract stone disease. TECHNIQUE: Noncontrast CT of the abdomen and pelvis, using urinary tract stone protocol, was performed. Coronal and sagittal reformatted images were created and reviewed. A radiation dose lowering technique was used for this procedure, which may include, but is not limited to, dose reduction technique, automated exposure control, the use of iterative reconstruction, ALARA (As Low As Reasonably Achievable) techniques, and Image Gently techniques. COMPARISON EXAM: CT kidney stone protocol from 01/09/2024. F INDINGS: There is an approximate 4 mm calculus in the mid left ureter, a couple of centimeters above the umbilicus and at about the L3-4 disc space level. Moderate proximal hydroureter hydronephrosiswith surrounding inflammation. This could be a reflection of mild migration of the proximal ureteral calculus seen on the comparison study. No other ureteral or bladder stone. Coarse parenchymal calcifications in the medial lower pole of the left kidney and a few punctate and sub-3 mm nonobstructing nephroliths. Exophytic cortical cyst in the mid left kidney again noted. Moderate prostate enlargement. Calcified pelvic phleboliths. Diffuse hepatic steatosis. The gallbladder is surgically absent.Normal sized spleen. Pancreas and adrenal glands are unremarkable. No bowel obstruction or free air. Colonic diverticula with no diverticulitis. Normal appendix. No abdominal or pelvic adenopathy or free fluid. Normal caliber abdominal aorta. No consolidation or effusion in either lung base. There is a small hiatal hernia. Skeletal structures are grossly intact. There is a grade 1-2 anterolisthesis of L5 on S1 with chronic bilateral pars defects. No acute skeletal abnormalities. IMPRESSION: APPROXIMATE 4 MM CALCULUS IN THE MID LEFT URETER WITH PROXIMAL HYDROURETER AND HYDRONEPHROSIS. THIS MAY REFLECT SLIGHT INTERVAL MIGRATION OF THE PROXIMAL URETERAL STONE ON THE 01/09/2024 EXAM. NONOBSTRUCTING BILATERAL NEPHROLITHS. EXOPHYTIC LEFT RENAL CYST. MODERATE PROSTATE ENLARGEMENT. DIFFUSE HEPATIC STEATOSIS. COLONIC DIVERTICULA WITH NO DIVERTICULITIS. SMALL HIATAL HERNIA. Referred By: Interpreted By: Merari Kaufman MD, 02/06/2024 7:57 PM ECG 12 lead Result Date: 01/09/[address] Test Date: 2024-01-09 Pat Name: RICHARD PRINGLE Department: 41 Room: EXAM11 Gender: Male Sledger: [id number] : 1945 Requested By: DINA VALDES Order Number: [id number] Reading MD: Doron Slade Measurements Intervals [place] Rate: 61 P: 84 OK: 127 QRS: 60 QRSD: 109 T: 36 QT: 395 QTc: 398 Interpretive Statements SINUS RHYTHM Compared to ECG 07/07/2023 15:33:48 Incomplete right bundle-branch block no longer present T-wave abnormality no longer present Other ischemic changes, not STEMI Preliminary EKG Interpretation by Ketan Uriarte D.O. TRUCTION JOB TITLES CT ABD+PEL WO CON Result Date: 01/09/[address] [address] INDICATION: Left flank pain COMPARISON: CT of the pelvis, 07 Jul 2023 TECHNIQUE: CT images of the abdomen and pelvis were obtained. Radiation dose reduction technique utilized. FINDINGS: Evaluation of solid organs is diminished in the absence of IV contrast. Limited visualization of the lower thorax reveals no acute abnormality. Redemonstration of mediastinal and hilar calcifications compatible with antecedent granulomatous disease; treated lymphoma can have this appearance. Moderate coronary atherosclerosis. Blood pool attenuation characteristics suggest anemia. Normal sized liver. No suspicious hepatic lesion by noncontrast technique. Benign, calcified granulomata within the hepatic and splenic parenchyma, sequela of antecedent granulomatous disease. Atherosclerosis of the abdominal and pelvic vasculature. No retroperitoneal lymphadenopathy. No evidence of bowel obstruction or inflammation. Colonic diverticulosis. Normal appearing appendix. No free gas in the abdomen or pelvis. No mesenteric lymphadenopathy. Stomach and duodenum within normal limits. Unchanged mild splenomegaly measuring 13.6 cm. Incidental note of a small splenule. Pancreas is not well evaluated in the absence of IV contrast; however, no peripancreatic inflammatory change is identified. Incidental note of a periampullary diverticulum. Adrenal glands within normal limits. No right hydronephrosis or hydroureter. Unchanged left renal cortical calcification measuring 0.8 cm, possibly secondary to prior ablation/partial nephrectomy. Benign-appearing exophytic renal cystic focus which no follow-up is recommended. Mild left hydronephrosis and proximal hydroureter. 0.4 cm calculus in the proximal left ureter, just inferior to the UPJ, the craniocaudal level of the transverse process of L3. Distal aspects of the left ureter are unremarkable. Urinary bladder within normal limits for degree of distention. Top normalsize prostate. Small bilateral fat-containing inguinal hernias without evidence of complication. Incidental note of benign pelvic phleboliths. No pelvic lymphadenopathy or significant free fluid. Chronic degenerative changes of the hips, pubic symphysis, and sacroiliac joints. Chronic multilevel degenerative changes of the spine. Unchanged chronic grade 1 anterolisthesis of L5 on S1 secondary to bilateral L5 pars defects. Visualized body wall exhibits no acute abnormality. IMPRESSION: 1. 0.4 cm obstructive calculus in the proximal left ureter just inferior to the UPJ. Concomitant mild hydroureteronephrosis. 2. Suggestion of anemia. 3. Colonic diverticulosis. 4. Unchanged mild splenomegaly. 5. Other chronic/nonurgent findings, as above. Referred By: Interpreted By: Yunior Traore MD, 01/09/2024 1:43 AM EKG: Results for orders placed or performed during the hospital encounter of 02/06/24 ECG 12 lead Narrative [place] Test Date: 2024-02-06 Pat Name: RICHARD PRINGLE Department: [place]: [facility] [place]: Male Sledger: : 1945 Requested By: QUAN BONNER Order Number: [id number] Reading MD: Marie Pickering Measurements Intervals [place] Rate: 81 P: 60 OK: 133 QRS: 23 QRSD: 121 T: 14 QT: 368 QTc: 428 Interpretive Statements SINUS RHYTHM MODERATE INTRAVENTRICULAR CONDUCTION DELAY [110+ ms QRS DURATION] NONSPECIFIC T-WAVE ABNORMALITY Compared to ECG 01/09/2024 01:38:33 Intraventricular conduction delay now present T-wave abnormality now present TRUCTION JOB TITLES Assessment & Plan Kidney stone: Patient admitted to the medical floor CT showed 4 mm calculus in the mid left ureter with proximal hydronephrosis UA positive for UTI Patient started on Rocephin, continue Urology have been consulted Keep patient n.p.o. after midnight Pain control -02/06 cystoscopy today, had stent placed, will have further stone removeal per urologist -Cr still elevated, continue IV fluids CLL, cold agglutinin hemolytic anemia, hereditary hemochromatosis: Patient finished Rituxan August 16, 2023 White count 14, hemoglobin 11.3, platelets 178 Compared to white count 21, hemoglobin 7.2, platelets 311 on 07/10/[address] Little CODE STATUS full code Plan of care discussed with patient, nurse, case specialist. Zabrina Newman MD TRUCTION JOB TITLES * Janet Godinez RN - 02/07/2024 10:33 AM CST Problem: Discharge Planning Goal: Knowledge of discharge instructions Outcome: Progressing Problem: Pain control/comfort Goal: Promote pain control/comfort Outcome: Progressing Problem: Skin integrity, Impaired-wound Goal: Absence of new skin breakdown Outcome: Progressing Goal: Evidence of wound healing Outcome: Progressing Problem: Skin integrity, Impaired-pressure injury/ulcer Goal: Absence of new skin breakdown Outcome: Progressing Goal: Evidence of pressure injury/ulcer healing Outcome: Progressing Problem: Skin integrity, at risk Goal: Absence of new skin breakdown Outcome: Progressing Problem: Moisture associated skin impairment Goal: Reduce moisture exposure Outcome: Progressing Goal: Evidence of wound healing Outcome: Progressing Goal: Evidence of pressure injury/ulcer healing Outcome: Progressing Goal: Absence of new skin breakdown Outcome: Progressing Problem: Infection - Risk of, Central Venous Catheter-Associated Bloodstream Infection Goal: Absence of Central Venous Catheter Associated Bloodstream Infection Signs and Symptoms Outcome: Progressing Problem: Reduced risk for falls/injury Goal: Reduced Risk for Falls/Injury Outcome: Progressing Goal: Reduced Risk of Confusion (Acute vs Chronic) Outcome: Progressing Goal: Reduced Risk of Symptomatic Depression Outcome: Progressing Goal: Reduced Risk of Altered Elimination Outcome: Progressing Goal: Reduced Risk of Dizziness/Vertigo/Balance Outcome: Progressing Goal: Reduced Risk of Polypharmacy Outcome: Progressing TRUCTION JOB TITLES documented in this encounter H&P Notes * Tammi Gomez MD - 02/06/2024 10:50 PM CST Hospitalist History and Physical Patient: Richard Pringle Date: 02/06/2024 male, 78-year-old Admit Date: 02/06/2024 Attending: Tammi Gomez MD REASON FOR ADMISSION: Kidney stone HISTORY OF PRESENT ILLNESS: Richard Pringle is a very pleasant 78-year-old male With past medical history significant for CLL diagnosed December 2017, cold agglutinin hemolytic anemia, patient received Rituxan weekly for 5 doses with last dose August 16, 2023, hereditary hemochromatosis and patient is followed by Dr. Little at [facility], patient was seen in our ED on 01/09/2024 and was diagnosed with kidney stone. Patient presents to our ED secondary to left flank pain that started today, progressively getting worse, 9 out of 10 in severity, sharp in nature, patient reported dysuria 2 days ago. No nausea no vomiting. No hematuria. No fever or chills. While in ED patient had an episode of retrosternal chest pain, currently is chest pain-free. In ED patient was evaluated, CT abdomen and office showed approximate 4 mm calculusin the mid left ureter with proximal hydronephrosis, patient was given IV Rocephin, urology were consulted and patient was admitted for further evaluation and treatment. Allergy Allergies Allergen Reactions [place] [Hydrocodone-Acetaminophen] Nausea Only Medication list (Not in a hospital admission) No current facility-administered medications on file prior to encounter. Current Outpatient Medications on File Prior to Encounter Medication Sig Dispense Refill azithromycin (ZITHROMAX) 250 MG tablet Take 2 tabs daily for one day, then take 1 tab daily 6 tablet 0 B Iwpaldk-K-Phnqn Acid (DIATX OR) Take 1 tablet by mouth daily. Calcium Carbonate Antacid (CALCIUM CARBONATE OR) Take 600 mg by mouth daily. cefdinir (OMNICEF) 300 MG Cap capsule Take 1 capsule (300 mg total) by mouth 2 (two) times daily. 20 capsule 0 Cholecalciferol (VITAMIN D3) 2000 units Tab Take 0.5 tablets (1,000 Units total) by mouth 2 (two) times a day. Cinnamon Bark Powder Take 1,200 mg by mouth daily. famotidine (PEPCID) 20 MG tablet TAKE 1 TABLET(20 MG) BY MOUTH TWICE DAILY 180 tablet 3 Vyyouc-Ufibe-Nuca Ac-Ca Fructo (MOVE FREE [facility]) Tab Take 1 tablet by mouth daily. [...] total) by mouth daily. 30 capsule 0 Zinc Acetate, Oral, (GALZIN OR) Take 1 tablet by mouth daily. 15 mg once daily Past Medical History Past Medical History: Diagnosis Date Anemia Cataract Chronic lymphocytic leukemia ([facility]/HCC) GERD (gastroesophageal reflux disease) Immune deficiency disorder ([facility]/HCC) Kidney stone Past Surgical History: Procedure Laterality Date CHOLECYSTECTOMY EXCISION BASAL CELL CARCINOMA KNEE ARTHROSCOPY Right knee REMOVAL OF SPERM DUCT(S) TRANSURETHRAL RESECTION OF BLADDER Social History Social History Socioeconomic History Marital status: Number of children: 2 Tobacco Use Smoking status: Former Current packs/day: 0.00 Average packs/day: 1.5 packs/day for 3.0 years (4.5 ttl pk-yrs) Types: Cigarettes Start date: 01/1965 Quit date: 1967 Years since quittin.0 Passive exposure: Never Smokeless tobacco: Never Tobacco comments: quit Vaping Use Vaping status: Never Used Substance and Sexual Activity Alcohol use: No Drug use: No Sexual activity: Not Currently Partners: Female control/protection: Surgical, None Social Drivers of Health Financial Resource Strain: Low Risk (07/07/2023) Overall Financial Resource Strain (CARDIA) Difficulty of Paying Living Expenses: Not hard at all Food Insecurity: No Food Insecurity (07/09/2023) Received from [place], [place] and [facility] Food Insecurity Social/Environmental Concerns: No concerns Transportation Needs: No Transportation Needs (07/09/2023) Received from [place], [place] and [facility] Transportation Needs Social/Environmental Concerns: No concerns Intimate Partner Violence: Not At Risk (07/09/2023) Received from [place], [place] and [facility] Feeling Safe Are you in a relationship with someone who hurts you emotionally and/or physically?: No Housing Stability: Low Risk (07/09/2023) Received from [place], [place] [facility] Housing Stability Social/Environmental Concerns: No concerns Family History Family History Problem Relation Name Age of Onset Cancer Mother Margmakayla skin Heart Disease Maternal Grandmother Verti Cancer Sister Radha REVIEW OF SYSTEMS: A 14 point review of systems was taken and pertinent positive as per HPI PHYSICAL EXAMINATION: Vital 24 Hour Range Most Recent Value Temperature Temp Min: 99.1 ??F (37.3 ??C) Max: 99.1 ??F (37.3 ??C) 99.1 ??F (37.3 ??C) Pulse Pulse Min: 66 Max: 92 78 Respiratory Resp Min: 16 Max: 37 (!) 37 Blood Pressure BP Min: 152/74 Max: 174/76 (!) 152/74 Pulse Oximetry SpO2 Min: 93 % Max: 100 % 93 % O2 No data recorded Vital Most Recent Value First Value Weight 76.2 kg (167 lb 15.9 oz) Weight: 76.2 kg (167 lb 15.9 oz) Height 170.2 cm (5' 7 ) Height: 170.2 cm (5' 7 ) BMI (!) 26.3 N/A Physical Exam: -GENERAL: No acute distress, breathing comfortably on room air. -EYES: Extraocular movements intact -ENT: Neck supple, Septum is midline. -LUNG: Clear to auscultation bilaterally, No wheezes, No crackles -CVS: Regular rate rhythm, S1 and S2 normal, No murmurs, -ABDOMEN: Soft, nondistended, +ve left flank tenderness, Bowel sounds observed -EXT: no lower Ext edema. -NEURO: Alert, awake, oriented x3, No gross neuro deficit -SKIN: Skin color, texture, turgor normal. No rashes or lesions Intake/Output last 3 shifts: No intake/output data recorded. Labs: Recent Labs Lab 02/06/24 1827 NA 136 K 4.3 CL 103 CO2 25.7 AGAP 7.3 BUN 18 CR 1.56* BUNCREATININ 11.5 GLU 109* CA 9.6 Recent Labs Lab 02/06/24 1827 WBC 14.53* RBC 2.68* HGB 11.3* HCT 27.5* MCV 102.6* MCH 42.2* MCHC 41.1* PLT 178 RDW 21.1* MPV 12.8* No results for input(s): AST , ALT in the last 168 hours. Invalid input(s): TOTALBILLIRUBIN , ALK No results for input(s): INR , PTT in the last 168 hours. Invalid input(s): ABG arterial blood gases No results for input(s): TROP , TROPIWB , CPK in the last 168 hours. Invalid input(s): CK-MB No results for input(s): PH , PCO2 , PO2 , [id number] , BICARBWB , BASEDEFICIT , BASEEXCESS in the last 168 hours. Imagining & Other Studies ECG 12 lead Result Date: 02/06/2024 Interpretive Statements SINUS RHYTHM MODERATE INTRAVENTRICULAR CONDUCTION DELAY [110+ ms QRS DURATION] NONSPECIFIC T-WAVE ABNORMALITY Compared to ECG 01/09/2024 01:38:33 Intraventricular conduction delay now present T-wave abnormality now present CT ABD+PEL WO CON Result Date: 02/06/2024 IMPRESSION: APPROXIMATE 4 MM CALCULUS IN THE MID LEFT URETER WITH PROXIMAL HYDROURETER AND HYDRONEPHROSIS. THIS MAY REFLECT SLIGHT INTERVAL MIGRATION OF THE PROXIMAL URETERAL STONE ON THE 01/09/2024 EXAM. NONOBSTRUCTING BILATERAL NEPHROLITHS. EXOPHYTIC LEFT RENAL CYST. MODERATE PROSTATE ENLARGEMENT. DIFFUSE HEPATIC STEATOSIS. COLONIC DIVERTICULA WITH NO DIVERTICULITIS. SMALL HIATAL HERNIA. ABD+PEL WO CON Result Date: 01/09/2024 IMPRESSION: 1. 0.4 cm obstructive calculus in the proximal left ureter just inferior to the UPJ. Concomitant mild hydroureteronephrosis. 2. Suggestion of anemia. 3. Colonic diverticulosis. 4. Unchanged mild splenomegaly. 5. Other chronic/nonurgent findings, as above. Results for orders placed or performed during the hospital encounter of 02/06/[address] [facility] [facility] Test Date: 2024-02-06 Pat Name: RICHARD PRINGLE Department: 41 Room: [facility] Gender: Male Sledger: : 1945 Requested By: QUAN BONNER Order Number: [id number] Reading MD: Measurements Intervals [place] Rate: 81 P: 60 OK: 133 QRS: 23 QRSD: 121 T: 14 QT: 368 QTc: 428 Interpretive Statements SINUS RHYTHM MODERATE INTRAVENTRICULAR CONDUCTION DELAY [110+ ms QRS DURATION] NONSPECIFIC T-WAVE ABNORMALITY Compared to ECG 01/09/2024 01:38:33 Intraventricular conduction delay now present T-wave abnormality now present Assessment & Plan Kidney stone: Patient admitted to the medical floor CT showed 4 mm calculus in the mid left ureter with proximal hydronephrosis UA positive for UTI Patient started on Rocephin, continue Urology have been consulted Keep patient n.p.o. after midnight Pain control CLL, cold agglutinin hemolytic anemia, hereditary hemochromatosis: Patient finished Rituxan August 16, 2023 White count 14, hemoglobin 11.3, platelets 178 Compared to white count 21, hemoglobin 7.2, platelets 311 on 07/10/[address] Little CODE STATUS full code Tammi Gomez MD 02/06/2024 10:50 PM TRUCTION JOB TITLES documented in this encounter Consult Notes * Derian Kelley MD - 02/07/2024 9:12 AM CSTAssociated Order(s): IP CONSULT TO UROLOGY Images from the original note were not included. Urologic Surgery Inpatient Consult Note Encounter Date: 02/07/2024 Patient Name: Richard Pringle Requesting Provider: Hospitalist service Reason for Consultation: the left proximal ureter stone History of Present Illness: Mr. Pringle is a 78-year-old male currently admitted for left-sided flank pain who I was asked tosee in consultation by Dr. Renner for left proximal ureter stone with recurrent renal colic. Patientwas initially seen about a month ago for left flank pain he was discharged with medical expulsive therapy he has failed a passed stone he return to the emergency room with worsening left-sided flank pain x 1 day. He had associated nausea and vomiting no fevers or chills he had some mild dysuria. Henormally sees Dr. Monroy for history of bladder cancer. Patient states he has a history of stone disease 40 years ago denies a family history of kidney stones. Has not seen any blood in the urine. Was placed on empiric Rocephin per suspicious urine. Past Medical History: Diagnosis Date Anemia Cataract Chronic lymphocytic leukemia (CMS/HCC HHS/HCC) GERD (gastroesophageal reflux disease) Immune deficiency disorder (CMS/HCC HHS/HCC) Kidney stone Past Surgical History: Procedure Laterality Date CHOLECYSTECTOMY EXCISION BASAL CELL CARCINOMA KNEE ARTHROSCOPY Right knee REMOVAL OF SPERM DUCT(S) TRANSURETHRAL RESECTION OF BLADDER Social History Socioeconomic History Marital status: Number of children: 2 Tobacco Use Smoking status: Former Current packs/day: 0.00 Average packs/day: 1.5 packs/day for 3.0 years (4.5 ttl pk-yrs) Types: Cigarettes Start date: 01/1965 Quit date: 1967 Years since quittin.0 Passive exposure: Never Smokeless tobacco: Never Tobacco comments: quit Vaping Use Vaping status: Never Used Substance and Sexual Activity Alcohol use: No Drug use: No Sexual activity: Not Currently Partners: Female control/protection: Surgical, None Social Drivers of Health Financial Resource Strain: Low Risk (02/07/2024) Overall Financial Resource Strain (CARDIA) Difficulty of Paying Living Expenses: Not hard at all Food Insecurity: No Food Insecurity (02/07/2024) Hunger Vital Sign Worried About Running Out of Food in the Last Year: Never true Ran Out of Food in the Last Year: Never true Transportation Needs: No Transportation Needs (02/07/2024) PRAPARE - Transportation Lack of Transportation (Medical): No Lack of Transportation (Non-Medical): No Physical Activity: Inactive (02/07/2024) Exercise Vital Sign Days of Exercise per Week: 0 days Minutes of Exercise per Session: 0 min Stress: Stress Concern Present (02/07/2024) [place] [employer] Occupational [employer] - Occupational Stress Questionnaire Feeling of Stress : To some extent Social Connections: Moderately Isolated (02/07/2024) Social Connection and Isolation Panel [NHANES] Frequency of Communication with Friends and Family: More than three times a week Frequency of Social Gatherings with Friends and Family: Three times a week Attends Quaker Services: Never Active Member of Clubs or Organizations: No Attends Club or Organization Meetings: Never Marital Status: Intimate Partner Violence: Not At Risk (02/07/2024) Humiliation, Afraid, Rape, and Kick questionnaire Fear of Current or Ex-Partner: No Emotionally Abused: No Physically Abused: No Sexually Abused: No Housing Stability: Low Risk (02/07/2024) Housing Stability Vital Sign Unable to Pay for Housing in the Last Year: No Number of Times Moved in the Last Year: 1 Homeless in the Last Year: No Family History Problem Relation Name Age of Onset Cancer Mother Margmakayla skin Heart Disease Maternal Grandmother Verti Cancer Sister Radha He denies a family history of malignancy. He denies a family history of nephrolithiasis. Medications: MEDICATIONS FOR CURRENT ENCOUNTER: SCHEDULED MEDICATIONS: cefTRIAXone 1 g Intravenous Q24H CONTINUOUS MEDICATIONS: sodium chloride 75 mL/hr at 02/07/24 0001 PRN MEDICATIONS: acetaminophen, fentaNYL, fentaNYL, bmnfkicij-gtdqxngu-sxzkfhralyw, ondansetron, polyethylene glycol Allergies: Allergies Allergen Reactions [place] [Hydrocodone-Acetaminophen] Nausea Only Review of Systems: A complete 10-point review of systems was reviewed with the patient. Pertinent positives and negatives are in the History of Present Illness and Past Medical History. All other systems are unremarkable. Vitals Filed Vitals: 02/07/24 0216 02/07/24 0217 02/07/24 0218 02/07/24 0535 BP: 125/57 Pulse: 71 71 77 78 Resp: 13 13 13 20 Temp: 98.1 ??F (36.7 ??C) TempSrc: Oral SpO2: (!) 85% (!) 84% 90% 100% Weight: 74.8 kg (164 lb 14.5 oz) Height: Height: 170.2 cm (5' 7 ) Weight: 74.8 kg (164 lb 14.5 oz) Intake / Output: Intake/Output Summary (Last 24 hours) at 02/07/2024 0912 Last data filed at 02/07/2024 0537 Gross per 24 hour Intake 50 ml Output 725 ml Net -675 ml Physical Examination: General: Patient is alert and oriented in no acute distress. Head: Normocephalic, atraumatic. Nares are symmetric without nasal flaring or respiratory distress.No lip cyanosis. Eyes: Sclera anicteric. Cardiovascular: Peripheral perfusion appears adequate. No digital clubbing or cyanosis present. Chest: Non-labored respirations. Comfortable respiratory effort without recruitment of accessory respiratory muscles. Abdominal: Abdomen soft, nontender, nondistended. No palpable masses. Gu: Mild left flank pain Musculoskeletal: Normal station and posture. Moves all extremities symmetrically. Neurological: No focal neurologic deficit. Psychiatric: Appropriate affect and mood. Skin: Normal coloration and turgor. Hematological/Immunological: No bleeding gums or jaundice. Lymphatic: No palpable lymphadenopathy. Laboratory: Recent Labs Lab 02/06/24182602/07/24 0545 WBC 14.53* 9.62 HGB 11.3* 9.9* HCT 27.5* 23.9* Recent Labs Lab 02/06/24182602/07/24 0545 CO2 25.7 26.6 ALT -- 123* AST -- 147* Recent Labs Lab 02/07/24 0545 INR 1.2 Lab Results Component Value Date PSA 1.75 08/01/2023 PSA 1.59 07/27/2022 PSA 1.3 07/27/2021 Invalid input(s): COLORU , CLARITYU , SPECGRAVU , PHURINE , PROTURQL , GLUCOSEUR , KETONESU , BILIRUBINU , BLOODUR , UROBILINOGUR , NITRITEU , LEUKESTUR Microbiology: Microbiology Results (last 14 days) Procedure Component Value Units Date/Time CULTURE URINE [[id number]] Collected: 02/06/241999 Order Status: Sent Lab Status: In process Updated: 02/06/242336 Specimen: URINE, UNSPECIFIED Microbiology Results (last 14 days) Procedure Component Value Units Date/Time CULTURE URINE [[id number]] Collected: 02/06/241999 Order Status: Sent Lab Status: In process Updated: 02/06/242336 Specimen: URINE, UNSPECIFIED Imaging: Radiology Results (Last 30 days) 02/06/241918 CT ABD+PEL WO CON Final result Impression: IMPRESSION: APPROXIMATE 4 MM CALCULUS IN THE MID LEFT URETER WITH PROXIMAL HYDROURETER AND HYDRONEPHROSIS. THIS MAY REFLECT SLIGHT INTERVAL MIGRATION OF THE PROXIMAL URETERAL STONE ON THE 01/09/2024 EXAM. NONOBSTRUCTING BILATERAL NEPHROLITHS. EXOPHYTIC LEFT RENAL CYST. MODERATE PROSTATE ENLARGEMENT. DIFFUSE HEPATIC STEATOSIS. COLONIC DIVERTICULA WITH NO DIVERTICULITIS. SMALL HIATAL HERNIA. Referred By: Interpreted By: Dionicio Kaufman MD, 02/06/2024 7:57 PM 01/09/[address] ABD+PEL WO CON Final result Impression: IMPRESSION: 1. 0.4 cm obstructive calculus in the proximal left ureter just inferior to the UPJ. Concomitant mild hydroureteronephrosis. 2. Suggestion of anemia. 3. Colonic diverticulosis. 4. Unchanged mild splenomegaly. 5. Other chronic/nonurgent findings, as above. Referred By: Interpreted By: Yunior Traore MD, 01/09/2024 1:43 AM I have personally reviewed available radiographic images, and if available, the radiology report(s). I have discussed the results of the clinical lab tests and radiographic images with the patient. Assessment: Left proximal ureter stone, recurrent renal colic Recommendations: Given urinalysis suspicious for infection recommend placement of a ureteral stent reviewed how the stent is placed reviewed the temporary nature of the stent and the fact the stent can cause pain similar to kidney stone pain and the fact we are not treating the stone reviewed pertinent risks, benefits, alternatives, nature the procedure and potential complications with patient in detail reviewed risk including but not limited to bleeding, infection, trauma to surrounding/adjacent structures damage to the urinary tract ureteral injury need for nephrostomy tube placement, in addition to additional procedures to actually treat the stone reviewed the stent is temporary can cause permanent kidney injury if he fails to follow-up to have the stone treated and have the stent removed additionally we reviewed anesthesia and positioning complications heart attack, stroke, blood clots, pulmonary embolus disability and other unforeseen complications have been reviewed. Patient is agreeable proceed all questions were answered to his satisfaction in layman's terms. He has been n.p.o. since midnight. -------- Derian Kelley M.D. [facility] HISTORY AND PHYSICAL INTERVAL NOTE: I have reviewed Richard Pringle History & Physical which was performed within the past 30 days. After examining Richard Pringle, no change has occurred in the patient's condition since the H&P was completed. Informed Consent Discussion: Potential benefits, risks, and side effects of the patient's procedure/surgery; the likelihood of the patient achieving his or her goals; and any potential problems that might occur during recuperation were discussed with the patient/family/personal representative phlebotomy services. Reasonable alternatives to the patient's proposed procedure/surgery including benefits, risks, and side effects related to the alternatives and the risks related to not receiving the proposed care were also discussed with the patient/family/personal representative phlebotomy services. Questions were answered and the patient /family/personal representative phlebotomy services verbalized understanding and desires to proceed. TRUCTION JOB TITLES documented in this encounter Nursing Notes * Shanell Boyer RN - 02/08/2024 3:26 PM CST Discharge instructions given. He voices understanding Home ambulatory with his family. TRUCTION JOB TITLES * Sherine Drew RN - 02/07/2024 10:00 AM CST Patient's son updated on procedure progress at 1001. TRUCTION JOB TITLES documented in this encounter OR Notes * Op Note - Derian Kellye MD - 02/07/2024 10:09 AM CST CYSTOSCOPY, LEFT RETROGRADE PYELOGRAM, LEFT URETERAL STENT INSERTION Procedure Note Indications: The patient underwent surgery on 02/06/2024 - 02/07/2024 for left ureter stone hydronephrosis. Procedure Details Description of procedure: Patient brought back the operating room received general anesthetic the LMA was prepped and draped in standard surgical fashion the dorsolithotomy position with Betadine scrub the genitalia. Care was taken to not Hyperflex or hyperextend the extremity all bony prominences thoroughly padded. SCD boots were on and functional preoperatively for DVT prophylaxis. He is currently on Rocephin. After appropriate time timeout and appropriate patient identifiers and radiologicalfilms were displayed in the room a 22 Serbian cystoscope was inserted urethra the urethra was grossly normal prostate had trilobar hyperplasia with a small intravesical median lobe he had single orthot opic bilateral ureter orifices effluxing clear yellow urine. The bladder had evidence of cystitis. He had small bladder diverticulum and trabeculated bladder but no distinct papillary tumors were visualized. 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 A 6 Serbian open-ended catheter was threaded into the left ureter over a sensor wire this was advanced to the mid ureterwhere retrograde pyelography was performed which outlined the stone and the collecting system he had mild to moderate hydronephrosis and hydroureter to the level of the stone the sensor wire was ableto bypassed the stone up in the upper pole the kidney. A 6 Serbian access catheter was threaded overthis into the upper pole where a hydronephrotic drip of cloudy urine was obtained this was sent offthe field for culture. The wire was replaced and a 6 x 26 cm double-J ureteral stent was then deployed good curl was seen fluoroscopically in the kidney and both fluoroscopically and endoscopically in the bladder. The bladder was drained all instruments were removed the patient was awoken and transferred to postop recovery in stable condition. No immediate complications. Findings: Expected/anticipated Complications: None immediate Estimated Blood Loss: Minimal Drains: Total IV Fluids: See anesthesia records Specimens: ID Type Source Tests Collected by Time Destination 1 : LEFT RENAL PELVIS URINE FOR CULTURE URINE URINE, CYSTOSCOPIC URINE BACTERIA CULTURE Derian Kelley MD 02/07/2024 1003 Implants: Left 6 x 26 cm double-J ureteral stent Disposition: PACU Condition: stable TRUCTION JOB TITLES documented in this encounter ED Notes * Adela Neal RN - 02/06/2024 9:36 PM CST Bed: 13 Expected date: Expected time: Means of arrival: Comments: floyd TRUCTION JOB TITLES * Quan Bonner MD - 02/06/2024 9:14 PM CST Chief Complaint Chief Complaint Patient presents with Flank Pain History of Present Illness 78y M here with left flank pain. This episode started today. No associated fevers. No dysuria. Pt was diagnosed with a proximal stone on 01/09/2024. He is unsure if he passed this stone. Medical History ALLERGIES: Review of patient's allergies indicates: Allergen Reactions [place] [Hydrocodone-Acetaminophen] Nausea Only MEDICATIONS: Prior to Admission medications Medication Sig Start Date End Date Taking? Authorizing Provider azithromycin (ZITHROMAX) 250 MG tablet Take 2 tabs daily for one day, then take 1 tab daily 01/25/24Ryan Maloney DO B Tsoesct-C-Djhpm Acid (DIATX OR) Take 1 tablet by mouth daily. [facility] Calcium Carbonate Antacid (CALCIUM CARBONATE OR) Take 600 mg by mouth daily. [facility] cefdinir (OMNICEF) 300 MG Cap capsule Take 1 capsule (300 mg total) by mouth 2 (two) times daily. 01/09/24 Ketan Uriarte DO Cholecalciferol (VITAMIN D3) 2000 units Tab Take 0.5 tablets (1,000 Units total) by mouth 2 (two) times a day. [facility] Cinnamon Bark Powder Take 1,200 mg by mouth daily. [facility] famotidine (PEPCID) 20 MG tablet TAKE 1 TABLET(20 MG) BY MOUTH TWICE DAILY 08/16/23 Ryan Maloney DO Qoinrm-Pvcbo-Pwhc Ac-Ca Fructo (M[facility]) Tab Take 1 tablet by mouth daily. [facility] HYDROcodone-acetaminophen (NORCO) 5-325 MG tablet Take 1 tablet by mouth every 6 (six) hours as needed. Indications: Acute Pain < 3 Day Supply 01/09/24 Ketan Uriarte DO magnesium oxide 250 MG tablet Take 1 tablet (250 mg total) by mouth daily. [facility] ondansetron (ZOFRAN-ODT) 4 MG disintegrating tablet Take 1 tablet (4 mg total) by mouth every 8 (eight) hours as needed. 01/09/24 Ketan Uriarte DO tamsulosin (FLOMAX) 0.4 MG Cap Take 1 capsule (0.4 mg total) by mouth daily. 01/09/24 Ketan Uriarte, DO Zinc Acetate, Oral, (GALZIN OR) Take 1 tablet by mouth daily. 15 mg once daily [facility] PAST MEDICAL HISTORY: Past Medical History: Diagnosis Date Anemia Cataract Chronic lymphocytic leukemia (CMS/HCC HHS/HCC) GERD (gastroesophageal reflux disease) Immune deficiency disorder (CMS/HCC HHS/HCC) Kidney stone PAST SURGICAL HISTORY: Past Surgical History: Procedure Laterality Date CHOLECYSTECTOMY EXCISION BASAL CELL CARCINOMA KNEE ARTHROSCOPY Right knee REMOVAL OF SPERM DUCT(S) TRANSURETHRAL RESECTION OF BLADDER FAMILY HISTORY: Family History Problem Relation Name Age of Onset Cancer Mother Margert skin Heart Disease Maternal Grandmother Verrosa Cancer Sister Radha SOCIAL HISTORY: Social History Tobacco Use Smoking status: Former Current packs/day: 0.00 Average packs/day: 1.5 packs/day for 3.0 years (4.5 ttl pk-yrs) Types: Cigarettes Start date: 01/1965 Quit date: 1967 Years since quittin.0 Passive exposure: Never Smokeless tobacco: Never Tobacco comments: quit Vaping Use Vaping status: Never Used Substance Use Topics Alcohol use: No Drug use: No Review of Systems Review of Systems Genitourinary: Positive for flank pain. Physical Exam Filed Vitals: 02/06/24 1825 02/06/24 2122 02/06/24 2145 02/06/24 2200 BP: (!) 155/88 (!) 158/73 (!) 174/76 (!) 152/74 Pulse: 92 78 66 78 Resp: 18 16 29 (!) 37 Temp: 99.1 ??F (37.3 ??C) TempSrc: Temporal SpO2: 100% 100% 100% 93% Weight: 76.2 kg (167 lb 15.9 oz) Height: 1.702 m (5' 7 ) Physical Exam Vitals and nursing note reviewed. Constitutional: Appearance: He is not toxic-appearing. HENT: Head: Normocephalic. Nose: Nose normal. Eyes: Conjunctiva/sclera: Conjunctivae normal. Cardiovascular: Rate and Rhythm: Normal rate and regular rhythm. Heart sounds: Normal heart sounds. Pulmonary: Effort: Pulmonary effort is normal. Breath sounds: Normal breath sounds. Abdominal: General: There is no distension. Palpations: Abdomen is soft. Tenderness: There is no abdominal tenderness. Musculoskeletal: Cervical back: Neck supple. Skin: General: Skin is warm and dry. Neurological: Mental Status: He is alert. Diagnostic Studies / Procedures ELECTROCARDIOGRAMS: Results for orders placed or performed during the hospital encounter of 02/06/24 [address] [facility] [address] [place] [address] Test Date: 2024-02-06 Pat Name: RICHARD PRINGLE Department: 41 Room: [facility] Gender: Male [place]led[place]: : 1945 Requested By: QUAN BONNER Order Number: [id number] Reading MD: Measurements Intervals [place] Rate: 81 P: 60 OK: 133 QRS: 23 QRSD: 121 T: 14 QT: 368 QTc: 428 Interpretive Statements SINUS RHYTHM MODERATE INTRAVENTRICULAR CONDUCTION DELAY [110+ ms QRS DURATION] NONSPECIFIC T-WAVE ABNORMALITY Compared to ECG 01/09/2024 01:38:33 Intraventricular conduction delay now present T-wave abnormality now present LABORATORY STUDIES: Results for orders placed or performed during the hospital encounter of 02/06/24 CBC W/DIFF AUTOMATED Result Value Ref Range WBC 14.53 (H) 4.5 - 11.0 x10'3/uL RBC 2.68 (L) 4.70 - 6.10 x10'6/uL HGB 11.3 (L) 14.0 - 18.0 G/DL HCT 27.5 (L) 43.0 - 54.0 % MCV 102.6 (H) 80.0 - 94.0 FL MCH 42.2 (H) 27.0 - 31.0 PG MCHC 41.1 (H) 32.0 - 36.0 G/DL RDW 21.1 (H) 11.5 - 14.5 % PLT 178 130 - 400 x10'3/uL MPV 12.8 (H) 9.3 - 12.2 FL DIFFERENTIAL TYPE MANUAL DIFFERENTIAL SEG NEUTROPHILS 85 % LYMPHOCYTES 8 % MONOCYTES 6 % BASOPHILS 1 % ABS. NEUTROPHILS 12.35 (H) 1.80 - 7.70 x10'3/uL ABS. LYMPHOCYTES 1.16 1.00 - 4.80 x10'3/uL ABS. MONOCYTES 0.87 (H) 0.30 - 0.82 x10'3/uL ABS. BASOPHILS 0.15 (H) 0.01 - 0.08 x10'3/uL ANISO 1+ PLT EST. ADEQUATE BASIC METABOLIC PANEL Result Value Ref Range GLUCOSE 109 (H) 70 - 99 MG/DL BUN 18 7 - 18 MG/DL CREATININE S/P/B 1.56 (H) 0.7 - 1.3 MG/DL SODIUM S/P/B 136 136 - 145 MMOL/L POTASSIUM S/P/B 4.3 3.5 - 5.1 MMOL/L CHLORIDE S/P/B 103 97 - 115 MMOL/L CO2 25.7 21 - 32 MMOL/L CALCIUM S/P/B 9.6 8.5 - 10.1 MG/DL ANION GAP 7.3 2 - 10 MMOL/L BUN CREATININE RATIO 11.5 6 - 26 GFR ESTIMATE 45 (L) >90 ML/MIN/1.73 M2 URINALYSIS Result Value Ref Range SPECIMEN TYPE URINE CLEAN CATCH COLOR (U) YELLOW TRANSPARENCY TURBID SPECIFIC GRAVITY (U) 1.018 1.001 - 1.030 U PH 7.5 5.0 - 9.0 LEUKOCYTES (U) 500 (A) NEGATIVE NITRITES NEGATIVE NEGATIVE PROTEIN RANDOM (U) 30 (H) <30 MG/DL GLUCOSE (U) NORMAL NORMAL MG/DL KETONES MG/DL (U) TRACE (A) NEGATIVE MG/DL UROBILINOGEN NORMAL NORMAL MG/DL BILIRUBIN (U) NEGATIVE NEGATIVE MG/DL BLOOD (U) 2+ (A) NEGATIVE MUCUS RARE /LPF WBC/HPF >100 (H) <6 /HPF RBC/HPF 61 (H) <6 /HPF SQUAMOUS EPITHELIALS RARE /HPF IMAGING STUDIES CT ABD+PEL WO CON Final Result by User, [id number] (02/05 2011) [facility] [address] [place], [place] [address] EXAM: CT ABD+PEL WO CON INDICATION: Left flank pain with concern for urinary tract stone disease. TECHNIQUE: Noncontrast CT of the abdomen and pelvis, using urinary tract stone protocol, was performed. Coronal and sagittal reformatted images were created and reviewed. A radiation dose lowering technique was used for this procedure, which may include, but is not limited to, dose reduction technique, automated exposure control, the use of iterative reconstruction, ALARA (As Low As Reasonably Achievable) techniques, and Image Gently techniques. COMPARISON EXAM: CT kidney stone protocol from 01/09/2024. FINDINGS: There is an approximate 4 mm calculus in the mid left ureter, a couple of centimeters above the umbilicus and at about the L3-4 disc space level. Moderate proximal hydroureter hydronephrosis with surrounding inflammation. This could be a reflection of mild migration of the proximal ureteral calculus seen on the comparison study. No other ureteral or bladder stone. Coarse parenchymal calcifications in the medial lower pole of the left kidney and a few punctate and sub-3 mm nonobstructing nephroliths. Exophytic cortical cyst in the mid left kidney again noted. Moderate prostate enlargement. Calcified pelvic phleboliths. Diffuse hepatic steatosis. The gallbladder is surgically absent. Normal sized spleen. Pancreas and adrenal glands are unremarkable. No bowel obstruction or free air. Colonic diverticula with no diverticulitis. Normal appendix. No abdominal or pelvic adenopathy or free fluid. Normal caliber abdominal aorta. No consolidation or effusion in either lung base. There is a small hiatal hernia. Skeletal structures are grossly intact. There is a grade 1-2 anterolisthesis of L5 on S1 with chronic bilateral pars defects. No acute skeletal abnormalities. IMPRESSION: APPROXIMATE 4 MM CALCULUS IN THE MID LEFT URETER WITH PROXIMAL HYDROURETER AND HYDRONEPHROSIS. THIS MAY REFLECT SLIGHT INTERVAL MIGRATION OF THE PROXIMAL URETERAL STONE ON THE 01/09/2024 EXAM. NONOBSTRUCTING BILATERAL NEPHROLITHS. EXOPHYTIC LEFT RENAL CYST. MODERATE PROSTATE ENLARGEMENT. DIFFUSE HEPATIC STEATOSIS. COLONIC DIVERTICULA WITH NO DIVERTICULITIS. SMALL HIATAL HERNIA. Referred By: Interpreted By: Dionicio Kaufman MD, 02/06/2024 7:57 PM ED Course / Medical Decision Making Medical Decision Making Pt with 4mm stone in mid ureter, likely same stone as previous. Pain improved at this time. Will discuss with Urology. Pt with recurrent pain, plan admission. Problems Addressed: Flank pain: acute illness or injury Kidney stone: chronic illness or injury Amount and/or Complexity of Data Reviewed Labs: ordered. ECG/medicine tests: ordered. Risk Parenteral controlled substances. Decision regarding hospitalization. Clinical Impression Kidney stone (Primary) Flank pain Disposition: Admit Quan Bonner MD 02/06/24 2308 TRUCTION JOB TITLES * Kaylyn Guy RN - 02/06/2024 6:25 PM CST Ambulatory to triage with c/o left flank pain today. Pain 6/10. Denies dysuria or hematuria. Hx; kidney stones. TRUCTION JOB TITLES documented in this encounter Plan of Treatment Not on file documented as of this encounter Procedures Procedure Name Priority Date/Time Associated Diagnosis Comments COMPREHENSIVE METABOLIC PANEL Routine 02/08/2024 4:05 AM CONSTRUCTION JOB TITLES CBC W/DIFF AUTOMATED Routine 02/08/2024 4:05 AM CONSTRUCTION JOB TITLES SURG XR RETROGRD UROGRAPHY Routine 02/07/2024 10:13 AM [employer] URINE BACTERIA CULTURE Routine 10:03 AM [employer] CYSTOSCOPY STENT INSERTION/REMOVAL/FREY GE 02/07/2024 9:43 AM [employer] LEFT URETER STONE HEMOGLOBIN, GLYCOSYLATED Routine 02/07/2024 5:45 AM [employer] PROTHROMBIN TIME, VENOUS Routine 02/07/2024 5:45 AM [employer] COMPREHENSIVE METABOLIC PANEL Routine 02/07/2024 5:45 AM [employer] CBC W/DIFF AUTOMATED Routine 02/07/2024 5:45 AM [employer] TROPONIN, QUANT STAT 02/07/2024 5:45 AM [employer] THYROID STIM HORMONE TSH Routine 02/07/2024 5:45 AM [employer] MAGNESIUM Routine 02/07/2024 5:45 AM [employer] TROPONIN, QUANT STAT 02/06/2024 11:33 PM [employer] ECG 12-LEAD Routine 02/06/2024 9:19 PM [employer] HC URINALYSIS AUTO W/O MICRO STAT 02/06/2024 8:00 PM [employer] URINE BACTERIA CULTURE STAT 8:[address] ABD+PEL WO CON STAT 02/06/2024 7:1 9 PM [employer] BASIC METABOLIC PANEL STAT 02/06/2024 6:27 PM [employer] CBC W/DIFF AUTOMATED STAT 02/06/2024 6:27 PM [employer] documented in this encounter Results * (ABNORMAL) COMPREHENSIVE METABOLIC PANEL (02/08/2024 4:05 AM [employer]) GLUCOSE 140(H) 70 - 99 MG/DL 02/08/2024 4:42 AM [employer] [facility] BUN 17 7 - 18 MG/DL 02/08/2024 4:42 AM [employer] [facility] CREATININE S/P/B 1.07 0.7 - 1.3 MG/DL 02/08/2024 4:42 AM [employer] [facility] SODIUM S/P/B 140 136 - 145 MMOL/L 02/08/2024 4:42 AM [employer] [facility] POTASSIUM S/P/B 4.1 3.5 - 5.1 MMOL/L 02/08/2024 4:42 AM [employer] [facility] CHLORIDE S/P/B 109 97 - 115 MMOL/L 02/08/2024 4:42 AM [employer] [facility] CO2 24.9 21 - 32 MMOL/L 02/08/2024 4:42 AM [employer] [facility] CALCIUM S/P/B 9.0 8.5 - 10.1 MG/DL 02/08/2024 4:42 AM [employer] [facility] BILIRUBIN TOTAL S/P/B 2.6(H) 0.2 - 1.2 MG/DL 02/08/2024 4:42 AM [facility] Comment: THIS ASSAY IS NOT RECOMMENDED FOR PATIENTS UNDERGOING TREATMENT WITH ELTROMBOPAG DUE TO THE POTENTIAL FOR FALSELY ELEVATED RESULTS. TOTAL PROTEIN S/P/B 6.1(L) 6.4 - 8.2 G/DL 02/08/2024 4:42 AM [facility] ALBUMIN S/P/B 3.2(L) 3.4 - 5.0 G/DL 02/08/2024 4:42 AM [facility] AST 55(H) 15 - 37 U/L 02/08/2024 4:42 AM [facility] ALT 83(H) 16 - 60 U/L 02/08/2024 4:42 AM [facility] ALKALINE PHOSPHATASE S/P/B 127 50 - 136 U/L 02/08/2024 4:42 AM [facility] ANION GAP 6.1 2 - 10 MMOL/L 02/08/2024 4:42 AM [facility] BUN CREATININE RATIO 15.9 6 - 26 02/08/2024 4:42 AM [facility] A/G RATIO 1.1 1.0 - 2.0 RATIO 02/08/2024 4:42 AM [facility] GFR ESTIMATE 71(L) >90 ML/MIN/1.7 3 M2 02/08/2024 4:42 AM [facility] Comment: NOTE: eGFR is not calculated for patients <18 years of age or gender unknown. This is an estimated GFR calculation using the new CKD EPI creatinine equation without race and so does not require a correction factor for race. This estimated GFR should not be used for calculating drug doses. 02/08/2024 4:05 AM [employer] us Zabrina Newman MD LABORATORY Final Result [facility] [address] [place] [address], * (ABNORMAL) CBC W/DIFF AUTOMATED (02/08/2024 4:05 AM [employer]) WBC 17.25(H) 4.5 - 11.0 x10'3/uL 02/08/2024 5:20 AM [employer] [facility] RBC 2.20(L) 4.70 - 6.10 x10'6/uL 02/08/2024 5:20 AM [employer] [facility] HGB 10.0(L) 14.0 - 18.0 G/DL 02/08/2024 5:20 AM [employer] [facility] HCT 23.5(L) 43.0 - 54.0 % 02/08/2024 5:20 AM [employer] [facility] MCV 106.8(H) 80.0 - 94.0 FL 02/08/2024 5:20 AM [employer] [facility] MCH 45.5(H) 27.0 - 31.0 PG 02/08/2024 5:20 AM [employer] [facility] MCHC 42.6(H) 32.0 - 36.0 G/DL 02/08/2024 5:20 AM [employer] [facility] Comment:COLD AGGLUTININ. INC UBATED FOR 30 MIN. RDW 22.4(H) 11.5 - 14.5 % 02/08/2024 5:20 AM [employer] [facility] PLT 166 130 - 400 x10'3/uL 02/08/2024 5:20 AM [facility] MPV 12.4(H) 9.3 - 12.2 FL 02/08/2024 5:20 AM [facility] DIFFERENTIAL TYPE MANUAL DIFFERENTIAL 02/08/2024 9:30 AM [facility] SEG NEUTROPHILS 90 % 9:30 AM [facility] LYMPHOCYTES 4 % 02/08/2024 9:30 AM [facility] MONOCYTES 6 % 02/08/2024 9:30 AM [facility] ABS. NEUTROPHILS 15.53(H) 1.80 - 7.70 x10'3/uL 02/08/2024 9:30 AM [facility] ABS. LYMPHOCYTES 0.69(L) 1.00 - 4.80 x10'3/uL 02/08/2024 9:30 AM [facility] ABS. MONOCYTES 1.04(H) 0.30 - 0.82 x10'3/uL 02/08/2024 9:30 AM [facility] RBC MORPHOLOGY SLIDE REVIEWED 2023 9:30 AM [facility] ANISO 2+ 02/08/2024 9:30 AM [facility] MICRO 1+ 02/08/2024 9:30 AM [facility] PLT EST. ADEQUATE 02/08/2024 9:30 AM [facility] 02/08/2024 4:05 AM [employer] us Zabrina Newman MD LABORATORY Final Result [facility] [address] [place] [address], * SURG XR RETROGRD UROGRAPHY (02/07/2024 10:13 AM [employer]) Anatomical Region Laterality Modality Abdomen Radiographic Leticia ging 02/08/2024 6:13 AM [employer] Impressions 02/08/2024 6:14 AM [employer] Impression: Fluoroscopic spot views of left retrograde urography with stent placement obtained for intraoperative control purposes and evaluated postoperatively. Referred By: ?? Interpreted By: Skip Quiñones MD, 02/08/2024 6:13 AM Narrative 02/08/2024 6:14 AM [employer]LES [place] [address] Intraoperative fluoroscopic views of the retrograde urography History: Left ureteral stent insertion, pyelogram, cystoscopy Dose: Total Dose Area Product: 3.3552 (Gycm2). Technique: ??Intraoperative fluoroscopy control images obtained. Findings: 2 submitted images demonstrate partial opacification of the left renal collecting system. ??A left ureteral stent is in position. Procedure Note Skip Quiñones MD - 02/08/2024 [place] [address] Intraoperative fluoroscopic views of the retrograde urography History: Left ureteral stent insertion, pyelogram, cystoscopy Dose: Total Dose Area Product: 3.3552 (Gycm2). Technique: Intraoperative fluoroscopy control images obtained. Findings: 2 submitted images demonstrate partial opacification of the leftrenal collecting system. A left ureteral stent is in position. Impression: Fluoroscopic spot views of left retrograde urography withstent placement obtained for intraoperative control purposes and evaluatedpostoperatively. Referred By: Interpreted By: Skip Quiñones MD, 02/08/2024 6:13 AM Derian Kelley MD IMAGES ONLY Final Res ult * URINE BACTERIA CULTURE (02/07/2024 10:03 AM [employer]) SPEC DESCRIPTION URINE, CYSTOSCOPIC 02/07/2024 10:04 AM [employer] [facility] SPECIAL REQUESTS NO SPECIAL REQUEST 02/07/2024 10:04 AM [employer] [facility] CULTURE RESULT NO GROWTH 2 DAYS 02/09/2024 9:05 AM [employer] [facility] URINE URINE CYTOLOGIC MATERIAL / Unknown 02/07/2024 10:03 AM [employer] Derian Kelley MD MICROBIOLOGY - GENERAL OR DERABLES Final Result Performing Organization Address City/[facility] Co de Phone Number [facility] [address] [place] [address], [place] [phone] * TROPONIN, QUANT (02/07/2024 5:45 AM CON[employer]CTION [employer]) Pathologist [facility] TROPONIN I HIGH SENSITIVITY 13 <79 ng/L 02/07/2024 6:33 AM [employer] [facility] Comment: HIGH DOSES OF BIOTIN, TROPONIN-SPECIFIC AUTOANTIBODIES, AND ANTIBODY THERAPY CONTAINING HAMA MAY INTERFERE WITH THIS TEST RESULT. CORRELATION TO CLINICAL HISTORY AND PRESENTATION RECOMMENDED. 02/07/2024 5:45 AM [employer] Tammi Gomez MD LABORATORY Final Resul t Performing Organization Address City/[facility]/ZIP Co de Phone Number [facility] [address] [place] [address], [place] [phone] * THYROID STIM HORMONE, TSH (02/07/2024 5:45 AM [employer]) Pathologist [facility] TSH 1.920 0.358 - 3.74 uIU/ML 02/07/2024 6:33 AM [employer] [facility] Comment: HIGH DOSES OF BIOTIN MAY INTERFERE WITH THIS TEST RESULT. CORRELATION TO CLINICAL HISTORY AND PRESENTATION RECOMMENDED. 02/07/2024 5:45 AM [employer] Tammi Gomez MD LABORATORY Final Resul t [facility] [address] [place] [address], * HEMOGLOBIN, GLYCATED (02/07/2024 5:45 AM [employer]) HGB A1C 3.8 <5.7 % 02/07/2024 7:47 AM [employer] [facility] Comment: ADA GUIDELINES 2010 5.7 TO 6.4% INCREASED RISK OF DIABETES > OR = 6.5% CONSISTENT WITH DIABETES ESTIMATED AVG GLUCOSE 62 mg/dL 02/07/2024 7:47 AM [employer] [facility] 02/07/2024 5:45 AM [employer] Tammi Gomez MD LABORATORY Final Resul t Performing Organization Address City/[facility]/ZIP Co de Phone Number [facility] [address] [place] [address], [place] [phone] * MAGNESIUM (02/07/2024 5:45 AM [employer]) MAGNESIUM 2.2 1.8 - 2.4 MG/DL 02/07/2024 6:33 AM [employer] [facility] 02/07/2024 5:4 5 AM [employer] us Tammi Gomez MD LABORATORY Final Resul t [facility] [address] [place] [address], * (ABNORMAL) COMPREHENSIVE METABOLIC PANEL (02/07/2024 5:45 AM [employer]) [facility] GLUCOSE 127(H) 70 - 99 MG/DL 02/07/2024 6:33 AM [facility] BUN 18 7 - 18 MG/DL 02/07/2024 6:33 AM [facility] CREATININE S/P/B 1.24 0.7 - 1.3 MG/DL 02/07/2024 6:33 AM [facility] SODIUM S/P/B 137 136 - 145 MMOL/L 02/07/2024 6:33 AM [facility] POTASSIUM S/P/B 5.1 3.5 - 5.1 MMOL/L 02/07/2024 6:33 AM [facility] CHLORIDE S/P/B 109 97 - 115 MMOL/L 02/07/2024 6:33 AM [facility] CO2 26.6 21 - 32 MMOL/L 02/07/2024 6:33 AM [facility] CALCIUM S/P/B 8.5 8.5 - 10.1 MG/DL 02/07/2024 6:33 AM [facility] BILIRUBIN TOTAL S/P/B 2.7(H) 0.2 - 1.2 MG/DL 02/07/2024 6:33 AM [facility] Comment: THIS ASSAY IS NOT RECOMMENDED FOR PATIENTS UNDERGOING TREATMENT WITH ELTROMBOPAG DUE TO THE POTENTIAL FOR FALSELY ELEVATED RESULTS. TOTAL PROTEIN S/P/B 5.9(L) 6.4 - 8.2 G/DL 02/07/2024 6:33 AM [facility] ALBUMIN S/P/B 3.2(L) 3.4 - 5.0 G/DL 02/07/2024 6:33 AM [facility] AST 147(H) 15 - 37 U/L 02/07/2024 6:33 AM [employer] [facility] ALT 123(H) 16 - 60 U/L 02/07/2024 6:33 AM [employer] [facility] ALKALINE PHOSPHATASE S/P/B 131 50 - 136 U/L 02/07/2024 6:33 AM [facility] ANION GAP 1.4(L) 2 - 10 MMOL/L 02/07/2024 6:33 AM [facility] BUN CREATININE RATIO 14.5 6 - 26 02/07/2024 6:33 AM [facility] A/G RATIO 1.2 1.0 - 2.0 RATIO 02/07/2024 6:33 AM [facility] GFR ESTIMATE 60(L) >90 ML/MIN/1.7 3 M2 02/07/2024 6:33 AM [facility] Comment: NOTE: eGFR is not calculated for patients <18 years of age or gender unknown. This is an estimated GFR calculation using the new CKD EPI creatinine equation without race and so does not require a correction factor for race. This estimated GFR should not be used for calculating drug doses. 02/07/2024 5:45 AM [employer] us Tammi Gomez MD LABORATORY Final Resul t [facility] [address] [place] [address], [place] [phone] * (ABNORMAL) PROTHROMBIN TIME, VENOUS (02/07/2024 5:45 AM [employer]) PROTIME 13.2(H) 10.2 - 12.9 SEC 02/07/2024 6:16 AM [employer] [facility] INR 1.2 02/07/2024 6:16 AM [employer] [facility] Comment: Recommended INR Therapeutic Goals: ??2.0-3.0 Routine Therapy ??2.5-3.5 Mechanical Prosthetic Valves (High Risk) 02/07/2024 5:45 AM CON[employer]CTION [employer] us Tammi Gomez MD LABORATORY Final Resul t [facility] [address] [place] [address], * (ABNORMAL) CBC W/DIFF AUTOMATED (02/07/2024 5:45 AM [employer]) WBC 9.62 4.5 - 11.0 x10'3/uL 02/07/2024 7:47 AM [employer]LES [facility] RBC 2.30(L) 4.70 - 6.10 x10'6/uL 02/07/2024 7:47 AM [employer]LES [facility] HGB 9.9(L) 14.0 - 18.0 G/DL 02/07/2024 7:47 AM [employer] [facility] HCT 23.9(L) 43.0 - 54.0 % 02/07/2024 7:47 AM [employer] [facility] MCV 103.9(H) 80.0 - 94.0 FL 02/07/2024 7:47 AM [employer] [facility] MCH 43.0(H) 27.0 - 31.0 PG 02/07/2024 7:47 AM [employer] [facility] MCHC 41.4(H) 32.0 - 36.0 G/DL 02/07/2024 7:47 AM [facility] Comment:COLD AGGLUTININ. INC UBATED FOR 30 MINUTES. RDW 20.2(H) 11.5 - 14.5 % 02/07/2024 7:47 AM [employer]LES [facility] PLT 204 130 - 400 x10'3/uL 02/07/2024 7:47 AM [facility] MPV 13.0(H) 9.3 - 12.2 FL 02/07/2024 7:47 AM [facility] DIFFERENTIAL TYPE AUTOMATED DIFFERENTIAL 02/07/2024 7:47 AM [facility] NEUTROPHILS % 77.7 % 02/07/2024 7:47 AM [facility] LYMPHOCYTES % 13.4 % 02/07/2024 7:47 AM [facility] MONOCYTES % 6.8 % 02/07/2024 7:47 AM [facility] EOSINOPHILS 0.6 % 02/07/2024 7:47 AM [facility] BASOPHILS 0.5 % 02/07/2024 7:47 AM [facility] IMMATURE GRANS % 1.0 % 02/07/20 7:47 AM [facility] ABS. NEUTROPHILS 7.47 1.80 - 7.70 x10'3/uL 02/07/2024 7:47 AM [facility] ABS. LYMPHOCYTES 1.29 1.00 - 4.80 x10'3/uL 02/07/2024 7:47 AM [facility] ABS. MONOCYTES 0.65 0.30 - 0.82 x10'3/uL 02/07/2024 7:47 AM [facility] ABS. EOSINOPHILS 0.06 0.04 - 0.54 x10'3/uL 02/07/2024 7:47 AM [facility] ABS. BASOPHILS 0.05 0.01 - 0.08 x10'3/uL 02/07/2024 7:47 AM [facility] ABS. IMMATURE GRANULOCYTES 0.10 0.00 - 0.49 x10'3/uL 02/07/2024 7:47 AM [employer]LES [facility] RBC MORPHOLOGY SLIDE REVIEWED 2023 7:47 AM [employer]LES [facility] ANISO 1+ 02/07/2024 7:47 AM [employer] [facility] PLT EST. ADEQUATE 02/07/2024 7:47 AM [employer] [facility] 02/07/2024 5:45 AM [employer] Tammi Gomez MD LABORATORY Final Resul t Performing Organization Address City/[facility]/ZIP Co de Phone Number [facility] [address] [place] [address], [place] [phone] * TROPONIN, QUANT (02/06/2024 11:33 PM CONSTRUCTION JOB TITLES) Pathologist [facility] TROPONIN I HIGH SENSITIVITY 12 <79 ng/L 02/07/2024 12:08 AM CON[employer]ITLES [facility] Comment: HIGH DOSES OF BIOTIN, TROPONIN-SPECIFIC AUTOANTIBODIES, AND ANTIBODY THERAPY CONTAINING HAMA MAY INTERFERE WITH THIS TEST RESULT. CORRELATION TO CLINICAL HISTORY AND PRESENTATION RECOMMENDED. 02/06/2024 11:3 3 PM [employer]LES Tammi Gomez MD LABORATORY Final Resul t Performing Organization Address City/[facility]/ZIP Co de Phone Number [facility] [address] [place] [address], [place] [phone] * ECG 12 lead (02/06/2024 9:19 PM CONSTRUCTION [employer]ITLES) 02/06/2024 9:19 PM CON[employer]ITLES Narrative [facility] - 02/07/2024 7:15 AM CONSTRUCTION JOB TITLES ?[facility] [place] ? [address], [place] ? Test Date: ?2024-02-06 Pat Name: ? RICHARD PRINGLE ?Department: ?? 41 ? Room: ? C03 Gender: ? Male ? Sledger: ?? : ?1945 ? Requested By: QUAN BONNER Order Number: [id number] ? Reading MD: ?? Paban Raheel ? Measurements Intervals ?[place] ? Rate: ? 81 ? P: ?60 OK: ? 133 ?QRS: ?23 QRSD: ? 121 ?T: ?14 QT: ? 368 ? QTc: ?428 ? Interpretive Statements SINUS RHYTHM MODERATE INTRAVENTRICULAR CONDUCTION DELAY ??[110+ ms QRS DURATION] NONSPECIFIC T-WAVE ABNORMALITY Compared to ECG 01/09/2024 01:38:33 Intraventricular conduction delay now present T-wave abnormality now present TRUCTION JOB TITLES Procedure Note Marie Pickering MD - 02/07/[address] Test Date: 2024-02-06 Pat Name: RICHARD PRINGLE Department: 41 [place] [facility] [place]: Male Sledger: : 1945 Requested By: QUAN BONNER Order Number: [id number] Reading MD: Marie Pickering Measurements Intervals [place] Rate: 81 P: 60 OK: 133 QRS: 23 QRSD: 121 T: 14 QT: 368 QTc: 428 Interpretive Statements SINUS RHYTHM MODERATE INTRAVENTRICULAR CONDUCTION DELAY [110+ ms QRS DURATION] NONSPECIFIC T-WAVE ABNORMALITY Compared to ECG 01/09/2024 01:38:33 Intraventricular conduction delay now present T-wave abnormality now present TRUCTION JOB TITLES us Quan Bonner MD ECG ORDERABLES Final Resul t [facility] RAD * CULTURE URINE (02/06/2024 8:00 PM CONSTRUCTION [employer] TITLES) SPEC DESCRIPTION URINE, UNSPECIFIED 02/06/2024 9:48 PM CON[employer]CTION [employer] TITLES [facility] SPECIAL REQUESTS NO SPECIAL REQUEST 02/06/2024 9:48 PM [facility] CULTURE RESULT POLYMICROBIAL GROWTH CONSISTENT WITH NORMAL GENITAL LILY. ?? SUSCEPTIBILITIES NOT ROUTINELY PERFORMED. 02/08/2024 10:34 AM [facility] URINE SPECIMEN / Unknown 02/06/2024 8:00 PM CON[employer]ITLES 02/06/2024 11:37 PM CON[employer]CTION [employer] TITLES Quan Bonner MD MICROBIOLOGY - GENERAL ORDAniya REYES Final Result [facility] [address] [place] [address], * (ABNORMAL) URINALYSIS (02/06/2024 8:00 PM CON[employer]CTION [employer]ITLES) SPECIMEN TYPE URINE CLEAN CATCH 02/06/2024 7:55 PM [facility] COLOR (U) YELLOW 02/06/2024 8:35 PM [facility] TRANSPARENCY TURBID 02/06/2024 8:35 PM [facility] SPECIFIC GRAVITY (U) 1.018 1.001 - 1.030 02/06/2024 8:35 PM [facility] U PH 7.5 5.0 - 9.0 02/06/2024 8:35 PM [facility] LEUKOCYTES (U) 500(A) NEGATIVE 02/06/2024 8:35 PM [facility] NITRITES NEGATIVE NEGATIVE 02/06/2024 8:35 PM [facility] PROTEIN RANDOM (U) 30(H) <30 MG/DL 02/06/2024 8:35 PM [facility] GLUCOSE (U) NORMAL NORMAL MG/DL 02/06/2024 8:35 PM CON[employer] J[employer] TITLES [facility] KETONES MG/DL (U) TRACE(A) NEGATIVE MG/DL 02/06/2024 8:35 PM [employer] TITLES [facility] UROBILINOGEN NORMAL NORMAL MG/DL 02/06/2024 8:35 PM [employer] TITLES [facility] BILIRUBIN (U) NEGATIVE NEGATIVE MG/DL 02/06/2024 8:35 PM [employer] TITLES [facility] BLOOD (U) 2+(A) NEGATIVE 02/06/2024 8:35 PM [employer] TITLES [facility] MUCUS RARE /LPF 02/06/2024 8:35 PM [employer] TITLES [facility] WBC/HPF >100(H) <6 /HPF 02/06/2024 8:35 PM [employer]ITLES [facility] RBC/HPF 61(H) <6 /HPF 02/06/2024 8:35 PM [employer] TITLES [facility] SQUAMOUS EPITHELIALS RARE /HPF 02/06/2024 8:35 PM [employer] TITLES [facility] URINE SPECIMEN OBTAINED BY CLEAN CATCH PROCEDURE / Unknown 02/06/2024 8:00 PM CONSTRUCTION JOB TITLES us Dina WOODY URINE ORDERABLES Final Result [facility] [address] [place] [address], * CT ABD+PEL WO CON (02/06/2024 7:19 PM CONSTRUCTION JOB TITLES) Anatomical Region Laterality Modality Abdomen Computed Tomogra phy 02/06/2024 7:57 PM CONSTRUCTION JOB TITLES Impressions 02/06/2024 8:10 PM CONSTRUCTION JOB TITLES IMPRESSION: APPROXIMATE 4 MM CALCULUS IN THE MID LEFT URETER WITH PROXIMAL HYDROURETER AND HYDRONEPHROSIS. ??THIS MAY REFLECT SLIGHT INTERVAL MIGRATION OF THE PROXIMAL URETERAL STONE ON THE 01/09/2024 EXAM. NONOBSTRUCTING BILATERAL NEPHROLITHS. EXOPHYTIC LEFT RENAL CYST. MODERATE PROSTATE ENLARGEMENT. DIFFUSE HEPATIC STEATOSIS. COLONIC DIVERTICULA WITH NO DIVERTICULITIS. SMALL HIATAL HERNIA. Referred By: ?? Interpreted By: Dionicio Kaufman MD, 02/06/2024 7:57 PM Narrative 02/06/2024 8:10 PM CONSTRUCTION JOB TITLES [address] [address] EXAM: CT ABD+PEL WO CON INDICATION: Left flank pain with concern for urinary tract stone disease. TECHNIQUE: Noncontrast CT of the abdomen and pelvis, using urinary tract stone protocol, was performed. ??Coronal and sagittal reformatted images were created and reviewed. A radiation dose lowering technique was used for this procedure, which may include, but is not limited to, dose reduction technique, automated exposure control, the use of iterative reconstruction, ALARA (As Low As Reasonably Achievable) techniques, and Image Gently techniques. COMPARISON EXAM: CT kidney stone protocol from 01/09/2024. FINDINGS: There is an approximate 4 mm calculus in the mid left ureter, a couple of centimeters above the umbilicus and at about the L3-4 disc space level. ??Moderate proximal hydroureter hydronephrosis with surrounding inflammation. ??This could be a reflection of mild migration of the proximal ureteral calculus seen on the comparison study. ??No other ureteral or bladder stone. ??Coarse parenchymal calcifications in the medial lower pole of the left kidney and a few punctate and sub-3 mm nonobstructing nephroliths. ??Exophytic cortical cyst in the mid left kidney again noted. ??Moderate prostate enlargement. ??Calcified pelvic phleboliths. ??Diffuse hepatic steatosis. ??The gallbladder is surgically absent. ??Normal sized spleen. ??Pancreas and adrenal glands are unremarkable. ??No bowel obstruction or free air. ??Colonic diverticula with no diverticulitis. ??Normal appendix. ??No abdominal or pelvic adenopathy or free fluid. ??Normal caliber abdominal aorta. ??No consolidation or effusion in either lung base. ??There is a small hiatal hernia. ??Skeletal structures are grossly intact. 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 ??No acute skeletal abnormalities. Procedure Note Dionicio Kaufman MD - 02/06/2024 [facility] [address] [place], [place] [address] EXAM: CT ABD+PEL WO CON INDICATION: Left flank pain with concern for urinary tract stonedisease. TECHNIQUE: Noncontrast CT of the abdomen and pelvis, using urinary tractstone protocol, was performed. Coronal and sagittal reformatted imageswere created and reviewed. A radiation dose lowering technique was used for this procedure, which mayinclude, but is not limited to, dose reduction technique, automatedexposure control, the use of iterative reconstruction, ALARA (As Low AsReasonably Achievable) techniques, and Image Gently techniques. COMPARISON EXAM: CT kidney stone protocol from 01/09/2024. FINDINGS: There is an approximate 4 mm calculus in the mid left ureter, acouple of centimeters above the umbilicus and at about the L3-4 disc spacelevel. Moderate proximal hydroureter hydronephrosis with surroundinginflammation. This could be a reflection of mild migration of theproximal ureteral calculus seen on the comparison study. No otherureteral or bladder stone. Coarse parenchymal calcifications in themedial lower pole of the left kidney and a few punctate and sub-3 mmnonobstructing nephroliths. Exophytic cortical cyst in the mid leftkidney again noted. Moderate prostate enlargement. Calcified pelvicphleboliths. Diffuse hepatic steatosis. The gallbladder is surgicallyabsent. Normal sized spleen. Pancreas and adrenal glands areunremarkable. No bowel obstruction or free air. Colonic diverticula withno diverticulitis. Normal appendix. No abdominal or pelvic adenopathy orfree fluid. Normal caliber abdominal aorta. No consolidation or effusionin either lung base. There is a small hiatal hernia. Skeletal structuresare grossly intact. There is a grade 1-2 anterolisthesis of L5 on S1 withchronic bilateral pars defects. No acute skeletal abnormalities. IMPRESSION: APPROXIMATE 4 MM CALCULUS IN THE MID LEFT URETER WITH PROXIMALHYDROURETER AND HYDRONEPHROSIS. THIS MAY REFLECT SLIGHT INTERVALMIGRATION OF THE PROXIMAL URETERAL STONE ON THE 01/09/2024 EXAM. NONOBSTRUCTING BILATERAL NEPHROLITHS. EXOPHYTIC LEFT RENAL CYST. MODERATE PROSTATE ENLARGEMENT. DIFFUSE HEPATIC STEATOSIS. COLONIC DIVERTICULA WITH NO DIVERTICULITIS. SMALL HIATAL HERNIA. Referred By: Interpreted By: Dionicio Kaufman MD, 02/06/2024 7:[address] Final Result * (ABNORMAL) BASIC METABOLIC PANEL (02/06/2024 6:27 PM [employer]) GLUCOSE 109(H) 70 - 99 MG/DL 02/06/2024 8:14 PM [employer] [facility] BUN 18 7 - 18 MG/DL 02/06/2024 8:14 PM [employer] [facility] CREATININE S/P/B 1.56(H) 0.7 - 1.3 MG/DL 02/06/2024 8:14 PM [employer] [facility] SODIUM S/P/B 136 136 - 145 MMOL/L 02/06/2024 8:14 PM [facility] POTASSIUM S/P/B 4.3 3.5 - 5.1 MMOL/L 02/06/2024 8:14 PM [facility] Comment:SLIGHT HEMOLYSIS, RE SULT MAY BE AFFECTED. CHLORIDE S/P/B 103 97 - 115 MMOL/L 02/06/2024 8:14 PM [employer] [facility] CO2 25.7 21 - 32 MMOL/L 02/06/2024 8:14 PM [employer] [facility] CALCIUM S/P/B 9.6 8.5 - 10.1 MG/DL 02/06/2024 8:14 PM [employer] [facility] ANION GAP 7.3 2 - 10 MMOL/L 02/06/2024 8:14 PM [employer] [facility] BUN CREATININE RATIO 11.5 6 - 26 02/06/2024 8:14 PM [employer] [facility] GFR ESTIMATE 45(L) >90 ML/MIN/1.7 3 M2 02/06/2024 8:14 PM [facility] Comment: NOTE: eGFR is not calculated for patients <18 years of age or gender unknown. This is an estimated GFR calculation using the new CKD EPI creatinine equation without race and so does not require a correction factor for race. This estimated GFR should not be used for calculating drug doses. 02/06/2024 6:27 PM [employer] [facility] Final Result [facility] [address] [place] [address], * (ABNORMAL) CBC W/DIFF AUTOMATED (02/06/2024 6:27 PM [employer]) WBC 14.53(H) 4.5 - 11.0 x10'3/uL 02/06/2024 9:11 PM [facility] RBC 2.68(L) 4.70 - 6.10 x10'6/uL 02/06/2024 9:11 PM [employer] [facility] HGB 11.3(L) 14.0 - 18.0 G/DL 02/06/2024 9:11 PM [employer] [facility] HCT 27.5(L) 43.0 - 54.0 % 02/06/2024 9:11 PM [facility] MCV 102.6(H) 80.0 - 94.0 FL 02/06/2024 9:11 PM [facility] MCH 42.2(H) 27.0 - 31.0 PG 02/06/2024 9:11 PM [employer] [facility] MCHC 41.1(H) 32.0 - 36.0 G/DL 02/06/2024 9:11 PM [employer] [facility] RDW 21.1(H) 11.5 - 14.5 % 02/06/2024 9:11 PM [employer] [facility] PLT 178 130 - 400 x10'3/uL 02/06/2024 9:11 PM [employer] [facility] MPV 12.8(H) 9.3 - 12.2 FL 02/06/2024 9:11 PM [employer] [facility] DIFFERENTIAL TYPE MANUAL DIFFERENTIAL 02/06/2024 9:46 PM [employer] [facility] SEG NEUTROPHILS 85 % 9:46 PM [employer] [facility] LYMPHOCYTES 8 % 02/06/2024 9:46 PM [facility] MONOCYTES 6 % 02/06/2024 9:46 PM [employer] [facility] BASOPHILS 1 % 02/06/2024 9:46 PM [facility] ABS. NEUTROPHILS 12.35(H) 1.80 - 7.70 x10'3/uL 02/06/2024 9:46 PM [employer] [facility] ABS. LYMPHOCYTES 1.16 1.00 - 4.80 x10'3/uL 02/06/2024 9:46 PM [employer] [facility] ABS. MONOCYTES 0.87(H) 0.30 - 0.82 x10'3/uL 02/06/2024 9:46 PM [facility] ABS. BASOPHILS 0.15(H) 0.01 - 0.08 x10'3/uL 02/06/2024 9:46 PM [facility] ANISO 1+ 02/06/2024 9:46 PM [facility] PLT EST. ADEQUATE 02/06/2024 9:46 PM [employer] [facility] 02/06/2024 6:27 PM [employer] [facility] Final Result [facility] [address] [place] [address], documented in this encounter Visit Diagnoses Diagnosis Kidney stone- Primary Calculus of kidney Kidney stone Calculus of kidney Flank pain Abdominal pain, unspecified site documented in this encounter Admitting Diagnoses Diagnosis Kidney stone Calculus of kidney documented in this encounter Administered Medications Inactive Administered Medications - up to 3 most recent administrations Medication Order MAR Action Action Date Dose Rate Site acetaminophen (TYLENOL) tablet 650 mg 650 mg, Oral, Every 4 hours PRN, Mild pain (Scale 1 - 3), Headaches, Fever, Starting on Mon02/06/24 at 2240, Until Mon02/08/24 at 1752, Maximum dose of acetaminophen is 4000 mg from all sources in 24 hours. Given 02/08/2024 4:13 AM [employer] 650 mg cefTRIAXone (ROCEPHIN) 1 g in sodium chloride 0.9 % 50 mL IVPB 1 g, Intravenous, at 100 mL/hr, Once, 1 dose, On Mon02/06/24 at 2130 New 02/06/2024 9:46 PM [employer] 1 g 100 mL/hr cefTRIAXone (ROCEPHIN) 1 g in sodium chloride 0.9 % 50 mL IVPB 1 g, Intravenous, at 100 mL/hr, Every 24 hours, 5 doses, First dose on Mon02/07/24 at 2200, Last dose on Mon02/11/24 at 2200 New 02/07/2024 9:12 PM [employer] 1 g 100 mL/hr cefTRIAXone (ROCEPHIN) 1 g in sodium chloride 0.9 % 50 mL IVPB 1 g, Intravenous, at 100 mL/hr, Every 24 hours, 4 doses, First dose (after last modification) on Mon02/08/24 at 1445, Last dose on Mon02/11/24 at 1445 New Bag 02/08/2024 2:43 PM [employer] 1 g 100 mL/hr famotidine (PF) (PEPCID) injection 20 mg 20 mg, Intravenous, Once, 1 dose, On Mon02/07/24 at 0945, On admission IV Push over 2 minutes, Pre-Op Given 02/07/2024 9:22 AM [employer] 20 mg fentaNYL (SUBLIMAZE) injection 25 mcg 25 mcg, Intravenous, Every 2 hours PRN, Moderate pain (Scale 4 - 7), Starting on Mon02/06/24 at 2242, Until Kajal 02/08/24 at 1752, If intravenous (IV) route has been ordered, give over 1-2 minutes. fentaNYL (SUBLIMAZE) injection 50 mcg 50 mcg, Intravenous, Once, 1 dose, On Mon02/06/24 at 2230, If intravenous (IV) route has been ordered, give over 1-2 minutes. Given 02/06/2024 10:39 PM [employer] 50 mcg fentaNYL (SUBLIMAZE) injection 50 mcg 50 mcg, Intravenous, Every 2 hours PRN, Severe pain (Scale 8 - 10), Starting on Mon02/06/24 at 2242, Until Kajal 02/08/24 at 1752, If intravenous (IV) route has been ordered, give over 1-2 minutes. lactated ringers infusion at 10 mL/hr, Intravenous, Continuous, Starting on Mon02/07/24 at 0945, Until Mon02/07/24 at 1250, Infuse at TKO rate, Pre-Op New Bag 02/07/2024 9:23 AM [employer] 10 mL/hr morphine injection 4 mg 4 mg, Intravenous, Once, 1 dose, On Mon02/06/24 at 1830 Given 02/06/2024 7:56 PM [employer] 4 mg ondansetron (ZOFRAN) injection 4 mg 4 mg, Intravenous, Once, 1 dose, On Mon02/06/24 at 1830, IV push over 2-5 minutes. Given 02/06/2024 7:42 PM [employer] 4 mg ondansetron (ZOFRAN) injection 4 mg 4 mg, Intravenous, Once, 1 dose, On Mon02/07/24 at 0945, IV push over 2-5 minutes. Given 02/07/2024 9:21 AM [employer] 4 mg sodium chloride 0.9% infusion at 75 mL/hr, Intravenous, Continuous, Starting on Mon02/06/24 at 2245, Until Mon02/07/24 at 1144 New Bag 02/07/2024 12:01 AM [employer] 75 mL/hr documented in this encounter Active and Recently Administered Medications Times are shown in [employer]. Scheduled Medication Order 02/06/2024 02/07/2024 02/08/2024 cefTRIAXone (ROCEPHIN) 1 g in sodium chloride 0.9 % 50 mL IVPB (COMPLETED) 1 g, Intravenous, at 100 mL/hr, Once, 1 dose, On Mon02/06/24 at 2130 2146 (New Bag - Provider: Katarina Glass RN)2216 (Infusion Stop Time - Provider: Katarina Glass RN) cefTRIAXone (ROCEPHIN) 1 g in sodium chloride 0.9 % 50 mL IVPB (CANCELED) 1 g, Intravenous, at 100 mL/hr, Every 24 hours, 5 doses, First dose on Mon02/07/24 at 2200, Last dose on Mon02/11/24 at 2200 0943 (APR Hold - Provider: User Epic - Reason: Unreviewed Transfer Orders)1015 (APR Unhold - Provider: User Epic)2112 (New Bag - Provider: Emmy Coker RN)2145 (Infusion Stop Time - Provider: Emmy Coker RN) cefTRIAXone (ROCEPHIN) 1 g in sodium chloride 0.9 % 50 mL IVPB 1 g, Intravenous, at 100 mL/hr, Every 24 hours, 4 doses, First dose (after last modification) on Kajal 02/08/24 at 1445, Last dose on Mon02/11/24 at 1445 1443 (New Bag - Provider: Shanell Boyer, LULI)1515 (Infusion Stop Time - Provider: Shanell Boyer RN) famotidine (PF) (PEPCID) injection 20 mg (COMPLETED) 20 mg, Intravenous, Once, 1 dose, On Mon02/07/24 at 0945, On admission IV Push over 2 minutes, Pre-Op 0922 (Given - Provider: Marii Diane RN) fentaNYL (SUBLIMAZE) injection 50 mcg (COMPLETED) 50 mcg, Intravenous, Once, 1 dose, On Mon02/06/24 at 2230, If intravenous (IV) route has been ordered, give over 1-2 minutes. 2238 (Given - Provider: Katarina Glass, LULI) morphine injection 4 mg (COMPLETED) 4 mg, Intravenous, Once, 1 dose, On Mon02/06/24 at 1830 1955 (Given - Provider: Amari Harris, LULI) ondansetron (ZOFRAN) injection 4 mg (COMPLETED) 4 mg, Intravenous, Once, 1 dose, On Mon02/06/24 at 1830, IV push over 2-5 minutes. 1941 (Given - Provider: Amari Harris, LULI) ondansetron (ZOFRAN) injection 4 mg (COMPLETED) 4 mg, Intravenous, Once, 1 dose, On Mon02/07/24 at 0945, IV push over 2-5 minutes. 0921 (Given - Provider: Marii Diane RN) Continuous Medication Order 02/06/2024 02/07/2024 02/08/2024 lactated ringers infusion (CANCELED) at 10 mL/hr, Intravenous, Continuous, Starting on Mon02/07/24 at 0945, Until Mon02/07/24 at 1250, Infuse at TKO rate, Pre-Op 0923 (New Bag - Provider: Marii Diane RN) sodium chloride 0.9% infusion () at 75 mL/hr, Intravenous, Continuous, Starting on Mon02/06/24 at 2245, Until Mon02/07/24 at 1144 0001 (New Bag - Provider: Emmy Coker RN)0943 (APR Hold - Provider: User Epic - Reason: Unreviewed Transfer Orders)1015 (APR Unhold - Provider: User Epic) PRN Medication Order 02/06/2024 02/07/2024 02/08/2024 acetaminophen (TYLENOL) tablet 650 mg 650 mg, Oral, Every 4 hours PRN, Mild pain (Scale 1 - 3), Headaches, Fever, Starting on Mon02/06/24 at 2240, Until Kajal 02/08/24 at 1752, Maximum dose of acetaminophen is 4000 mg from all sources in 24 hours. 0943 (APR Hold - Provider: User Epic - Reason: Unreviewed Transfer Orders)1015 ([facility] Unhold - Provider: User Epic) 0413 (Given - Provider: Emmy Coker RN) fentaNYL (SUBLIMAZE) injection 25 mcg 25 mcg, Intravenous, Every 2 hours PRN, Moderate pain (Scale 4 - 7), Starting on Mon02/06/24 at 2242, Until Kajal 02/08/24 at 1752, If intravenous (IV) route has been ordered, give over 1-2 minutes. 0943 ([facility] Hold - Provider: User Epic - Reason: Unreviewed Transfer Orders)1015 ([facility] Unhold - Provider: User Epic) fentaNYL (SUBLIMAZE) injection 50 mcg 50 mcg, Intravenous, Every 2 hours PRN, Severe pain (Scale 8 - 10), Starting on Mon02/06/24 at 2242, Until Kajal 02/08/24 at 1752, If intravenous (IV) route has been ordered, give over 1-2 minutes. 0943 ([facility] Hold - Provider: User Epic - Reason: Unreviewed Transfer Orders)1015 ([facility] Unhold - Provider: User Epic) iopamidol (ISOVUE-300) 61 % injection (CANCELED) As needed, Starting on Mon02/07/24 at 1003, Until Mon02/07/24 at 1014, Intra-Op 1003 (Given - Provider: Derian Kelley MD) [id number] one ([place] MAXIMUM [employer]ENGTH) [id number] mg/30mL suspension 10 mL, Oral, Every 4 hours PRN, Indigestion, Heartburn, Starting on Mon02/06/24 at 2240, Until Kajal 02/08/24 at 1752, Shake Well 0943 ([facility] Hold - Provider: User Epic - Reason: Unreviewed Transfer Orders)1015 ([facility] Unhold - Provider: User Epic) ondansetron (ZOFRAN) injection 4 mg 4 mg, Intravenous, Every 8 hours PRN, Nausea, Vomiting, Starting on Mon02/06/24 at 2240, Until Kajal 02/08/24 at 1752, IV push over 2-5 minutes. 0943 ([facility] Hold - Provider: User Epic - Reason: Unreviewed Transfer Orders)1015 ([facility] Unhold - Provider: User Epic) polyethylene glycol (GLYCOLAX) packet 17 g 17 g, Oral, Daily as needed, Constipation, Starting on Mon02/06/24 at 2240, Until Kajal 02/08/24 at 1752, If both senna and polyethylene glycol are ordered, use 1st; if no response by next dosing interval, go to next option. 0943 ([facility] Hold - Provider: User Epic - Reason: Unreviewed Transfer Orders)1015 ([facility] Unhold - Provider: User Epic) documented in this encounter Additional Health Concerns Assessment Noted Time PHQ-9 Depression Total Score: 1 06/09/19 21 9:12 AM CDT documented as of this encounter Care Teams Director Of Direct Marketing Relationship Specialty Start Date End Date Ryan Maloney DO [address] [place] [id number] PCP - General FAMILY PRACTICE 04/20/18 Jo Mathew, RN [phone] [facility] [address] [place] [id number] Registered Nurse CARE MANAGEMENT 02/07/24 02/08/24 documented as of this encounter
--- OUTSIDE RECORDS SUMMARY | 2024-02-22 10:53 | XMS_ITS | Clinical Summary ---
Author Organization [facility] Address [address] [place] [address]. [place], [place] [address] [place] [id number] Care Team Providers Care Silk Spreader Name Role Phone Ryan Maloney Baylee ARELLANO Primary Care Provider + Allergies Active Allergy Reactions Criticality Noted Date Comments Hydrocodone-Acetaminophen Nausea Only Low 2 Medications Calcium Carbonate Antacid (CALCIUM CARBONATE OR) Take 300 mg by mouth every evening. Active Cinnamon Bark Powder Take 1,200 mg by mouth daily. Active B Ewwbnmm-B-Odjjv Acid (DIATX OR) Take 1 tablet by mouth daily. Active Cholecalciferol (VITAMIN D3) 2000 units Tab Take 1 tablet (50 mcg total) by mouth every evening. Active Jvzqaz-Ddhxa-Vdvk Ac-Ca Fructo (MOVE FREE JOINT HEALTH ADVANCE) Tab Take 1 tablet by mouth daily. Active magnesium oxide 250 MG tablet Take 1 tablet (250 mg total) by mouth nightly at bedtime. Active famotidine (PEPCID) 20 MG tabletIndications :Gastroesophageal reflux disease without esophagitis TAKE 1 TABLET(20 MG) BY MOUTH TWICE DAILY 180 tablet 3 Active tamsulosin (FLOMAX) 0.4 MG Cap Take 1 capsule (0.4 mg total) by mouth daily. 30 capsule 024 Active Additional Information Patient taking differently:0.4 mg OralEvery evening, Reported on 02/16/2024 bisacodyl EC (DULCOLAX) 5 MG Tab EC tablet Take 2 tablets (10 mg total) by mouth nightly as needed (constipation) . at bedtime. Active cefdinir (OMNICEF) 300 MG Cap capsule Take 1 capsule (300 mg total) by mouth 2 (two) times daily for 7 days. 14 capsule 2024 Active Zinc Acetate, Oral, (GALZIN OR) Take 1 tablet by mouth daily. 15 mg once daily 2023 Discontinued(S top Taking at Discharge) cefdinir (OMNICEF) 300 MG Cap capsule Take 1 capsule (300 mg total) by mouth 2 (two) times daily. 20 capsule 2023 Discontinued(S top Taking at Discharge) ondansetron (ZOFRAN-ODT) 4 MG disintegrating tablet Take 1 tablet (4 mg total) by mouth every 8 (eight) hours as needed. 257.14 tablet 2023 Discontinued(E rror) tamsulosin (FLOMAX) 0.4 MG Cap Take 1 capsule (0.4 mg total) by mouth daily. 30 capsule 2023 Discontinued HYDROcodone-aceta minophen (NORCO) 5-325 MG tabletIndications :Acute Pain < 3 Day Supply Take 1 tablet by mouth every 6 (six) hours as needed. Indications: Acute Pain < 3 Day Supply 12 tablet 2023 Discontinued(E rror) azithromycin (ZITHROMAX) 250 MG tabletIndications :Upper respiratory tract infection, unspecified type Take 2 tabs daily for one day, then take 1 tab daily 6 tablet 2023 Discontinued(S top Taking at Discharge) benzonatate (TESSALON) 100 MG capsuleIndication s:Upper respiratory tract infection, unspecified type Take 1-2 capsules (100-200 mg total) by mouth 3 (three) times daily as needed for Cough. 40 capsule 024 2023 cephALEXin (KEFLEX) 500 MG capsule Take 1 capsule (500 mg total) by mouth 2 (two) times daily for 10 days. 20 capsule 024 2023 Discontinued(S top Taking at Discharge) Active Problems Problem Noted Date Diagnosed Date UTI (urinary tract infection) 02/17/2024 Kidney stone 02/06/2024 Pneumonia 07/07/2023 Laceration of left ring finger 06/21/2021 Iron overload 04/06/2021 BMI 25.0-25.9,adult 07/28/2020 Puncture wound 07/28/2020 SOB (shortness of breath) 07/28/2020 History of tobacco use 07/28/2020 Gastroesophageal reflux dise ase, esophagitis presence not specified 04/26/2019 Other chest pain 04/19/2018 Autoimmune hemolytic anemia ([facility]) Chronic lymphocytic leukemia ([facility]) 1 03/19/2017 Resolved Problems Problem Noted Date Diagnosed Date Resolved Date Encounter for preventative a dult health care examination 07/28/2020 08/03/2020 Need for diphtheria-tetanus- pertussis (Tdap) vaccine 07/28/2020 08/03/2020 Need for hepatitis C screening test 07/28/2020 08/03/2020 Encounters Date Type Department Care Team Description 02/19/2024 Hospital Follow-up Call [facility] [place] [address] Irma Fox LPN Follow Up Call (JER 02/15-02/18/24) 02/19/[address] [facility] Family & Internal Medicine [address] [phone] Jo Mathew RN TCM (JER 02/15-02/17) 02/16/2024 12:17 PM STUCCO LABORER - 02/18/2024 2:51 PM STUCCO LABORER Hospital Encounter [facility] Med/Surg 3rd [place] [address] Babs Aponte MD Jumean, Khaled, MD Wolf, Brittany, PAUL Earl, Pilar Conte, [employer] SUPERVISOR Flank Pain (Left flank pain spreading to middle back) Discharge Disposition: Home or Self Care (Routine Discharge) 02/16/2024 Travel 02/09/2024 Hospital Follow-up Call [facility] [place] [address] Irma Fox LPN Follow Up Call (JER 02/05-02/08/24) 02/09/2024 Patient Outreach [facility] Family & Internal [address] [phone] Jo Mathew, LULI TCM (JER 02/05-02/07) 02/07/2024 9:43 AM STUCCO LABORER Anesthesia Event [facility] [place] [place] [address] Jovi Vega MD Ruocco, Eric, MD 02/07/2024 9:35 AM STUCCO LABORER - 02/07/2024 10:19 AM STUCCO LABORER Surgery [facility] [place] [address] Derian Kelley MD CYSTOSCOPY, LEFT RETROGRADE PYELOGRAM, LEFT URETERAL STENT INSERTION 02/07/2024 Patient Outreach [facility] Internal [address] [phone] Jo Mathew RN Hospital Follow Up (JER admission notification) 02/06/2024 6:46 PM STUCCO LABORER - 02/08/2024 3:26 PM STUCCO LABORER Hospital Encounter [facility] [address] Quan Bonner MD Elayyan, Ibrahim B, MD Goldberg, Deborah, MD Flank Pain Discharge Disposition: Home or Self Care (Routine Discharge) 02/06/2024 Travel 01/25/2024 Telephone [facility] Family Internal [address] [phone] Ryan Maloney P, DO Advice 01/17/2024 10:00 AM STUCCO LABORER Office Visit [facility] Family & Internal Medicine [address] [phone] Ryan Maloney, DO ER F/U (The patient presents for an ER follow up. The patient was seen for a kidney stone. The patient states he is feeling better, but he is unsure if he has passed it) 01/17/2024 Travel 01/16/2024 Scan [facility] SR[facility] Scanned, [facility] 01/09/2024 1:14 AM STUCCO LABORER - 01/09/2024 5:55 AM [facility] Emergency [facility] [place] [address] Ketan Uriarte DO Abdominal Pain Discharge Disposition: Home or Self Care (Routine Discharge) 01/09/2024 Travel 01/08/2024 Scan [facility] Scanned, [facility] Lab (SCAN) from Last 3 Months Immunizations Name Administration Dates Next Due Flublok (Quadrivalent) 12/05/2018 Fluzone High Dose (IIV, triv alent, 0.5mL) 12/05/2023,12/01/2017,11/29/2017,2016,12/02/2015,11/25/2014,11/29/2013 Fluzone High Dose - >Age 65 (Prefilled Syringe) 11/18/2022,11/16/2021,11/02/2020,2019,12/01/2017,11/29/2017,11/24/2016,1 ,11/25/2014,11/29/2013 Influenza (Generic) 12/05/2018, 8,12/11/2012,2011 Influenza Adult (Generic) 11/16/2021,,12/01/2017,2017,11/24/2016,12/02/2015,11/25/2014,1 ,12/11/2012 PFIZER COVID-19 (ORIGINAL FORMULATION, PURPLE CAP) mRNA, LNP-S, PF, 30 MCG/0.3 ML DOSE 05/04/2020,04/13/2020 Pneumococcal (Pneumovax 23) 01/17/2018 Pneumococcal (Prevnar 13) 04/26/2019 Tdap (Boostrix) 06/08/2020 Zoster (Zostavax) [address] Unt/0.65Ml 12/09/2009 Family History Medical History Relation Comments Heart Disease Maternal Grandmother Cancer Mother skin Cancer Sister Relation Status Comments Maternal Grandmother Mother Sister Social History Tobacco Use Types Packs/Day Years [...] from your doctor or pharmacy? Never 02/07/2024 [facility] Utilities Answer Date Recorded In the past 12 months has [facility] [employer] oil, or water [employer] threatened to shut off services in your home? No 02/16/2024 Humiliation, Afraid, Rape, and Kick questionnair e Answer Date Recorded Within the last year, have y ou been afraid of your partner or ex-partner? No 02/16/2024 Within the last year, have y ou been humiliated or emotionally abused in other ways by your partner or ex-partner? No Within the last year, have y ou been kicked, hit, slapped, or otherwise physically hurt by your partner or ex-partner? No 02/16/2024 Within the last year, have y ou been raped or forced to have any kind of sexual activity by your partner or ex-partner? No 02/16/2024 Social Connection and Isolat ion Panel [NHANES] Answer Date Recorded In a typical week, how many times do you talk on the phone with family, friends, or neighbors? More than three times a week 02/07/2024 How often do you get togethe r with friends or relatives? Three times a week 02/07/2024 How often do you attend [facility] or jew services? Never 02/07/2024 Do you belong to any clubs o r organizations such as mandaen groups, unions, fraternal or athletic groups, or [...] care, and heating? Not hard at all 02/16/2024 PHQ-2 Answer Date Recorded Patient Health Questionnaire-2 Score 0 06/23/2023 [facility] - Occupational Stress Questionnaire Answer Date Recorded [...] the money to buy more. Never true 02/16/20 24 Within the past 12 months, t he food you bought just didn't last and you didn't have money to get more. Never true 02/16/2024 PRAPARE - Transportation Answer Date Re corded In the past 12 months, has l ack of transportation kept you from medical appointments or from getting medications? No 01/21 In the past 12 months, has l ack of transportation kept you from meetings, work, or from getting things needed for daily living? No 02/16/2024 Housing Stability Vital Sign Answer Anand e Recorded In the last 12 months, was t here a time when you were not able to pay the mortgage or rent on time? No 02/16/2024 In the past 12 months, how m any times have you moved where you were living? 0 02/16/2024 At any time in the past 12 m [place], were you homeless or living in a mcc (including now)? No 02/16/2024 Sex and Gender Information Value Date Recorded Sex Assigned at Not on file Legal Sex Male 11:15 AM STUCCO LABORER Gender Identity Not on file Sexual Orientation Not on file Last Filed Vital Signs Vital Sign Reading Time Taken Comments Blood Pressure 108/65 02/18/2024 10:55 AM STUCCO LABORER Pulse 64 02/18/2024 10:55 AM STUCCO LABORER Temperature 37 ??C (98.6 ??F) 02/18/2024 2:09 PM STUCCO LABORER Respiratory Rate 18 02/18/2024 10:55 AM STUCCO LABORER Oxygen Saturation 100% 02/18/2024 10:55 AM STUCCO LABORER Inhaled Oxygen Concentration - - Weight 75.3 kg (166 lb 0.1 oz) 02/16/2024 12:00 PM STUCCO LABORER Height 170.2 cm (5' 7 ) 02/16/2024 12:00 PM STUCCO LABORER Body Mass Index 26 02/16/2024 12:00 PM STUCCO LABORER Plan of Treatment Health Maintenance Due Date Last Done Comments Annual Medicare Wellness Visit 2010 COVID-19 Vaccine (3 - Pfizer risk series) 06/22/2024 05/04/2020, 04/13/2020 Postponed from 06/01/2020 (Patient Refused) RSV Immunization or 60+ Years (1 - 1-dose 75+ series) 06/22/2024 Postponed from 2020 (Patient Refused) Zoster Vaccines (1 of 2) 06/22/2024 12/09/2009 Pos tponed from 02/03/2010 (Patient Refused) DTaP, Tdap and Td Vaccines (2 - Td or Tdap) 06/08/2030 06/08/2020 Pneumococcal Vaccine: 65+ Years Completed 04/26/2019, 01/17/2018 Colorectal Cancer Screening Colonoscopy (10 Years) Discontinued 09/15/2021 Hepatitis C Completed 07/10/2023, 05, 07/10/2023 Influenza Adult Completed 12/05/2023, 10/22, 11/16/2021, Additional history exists Meningococcal Vaccine Aged Out No taqueria codie eligible based on patient's age to complete this topic RSV Immunizations Under 20 Months Aged Out No longer eligible based on patient's age to complete this topic Goals Goal Patient Goal Type Associated Problems Recent Progress Patient-Stated? Author Health - patient able to perform ADLs independently Lifestyle No Kvng Villanueva i, RN Consistently take medications as Prescribed Lifestyle No Jo Mathew RN Establish Plan for Symptom Monitoring Lifestyle No Jo Mathew RN Medical Devices Implanted Type Area Sander And Polisher Device Identifier Shelf Expiration Date Model / Serial / Lot Stent Ureteral 6fr 26cm Pigtl Crv Taper Tip Bldr Mrk - [id number] Implanted:Qty : 1 on 02/07/2024 by Derian Kelley MD at [facility] Stent Left: Ureter [employer] SLIM [id number] 09/03/2026 [id number] 30 / / [id number] Procedures Procedure Name Priority Date/Time Associated Diagnosis Comments BASIC METABOLIC PANEL Routine 02/18/2024 6:00 AM STUCCO LABORER CBC W/DIFF AUTOMATED Routine 02/18/2024 6:00 AM STUCCO LABORER CBC W/DIFF AUTOMATED STAT 02/17/2024 8:30 AM STUCCO LABORER MAGNESIUM Routine 02/17/2024 6:18 AM STUCCO LABORER COMPREHENSIVE METABOLIC PANEL Routine 02/17/2024 6:18 AM STUCCO LABORER CULTURE, BACTERIA, BLOOD STAT 02/16/2024 2:[address] ABD+PEL W CON STAT 02/16/2024 2:11 PM STUCCO LABORER URINE BACTERIA CULTURE STAT 1:13 PM STUCCO LABORER HC URINALYSIS AUTO W/O MICRO STAT 02/16/2024 1:13 PM STUCCO LABORER LACTIC ACID W REFLEX (SEPSIS) STAT 02/16/2024 1:01 PM STUCCO LABORER COMPREHENSIVE METABOLIC PANEL STAT 02/16/2024 1:01 PM STUCCO LABORER CBC W/DIFF AUTOMATED STAT 02/16/2024 1:01 PM STUCCO LABORER COMPREHENSIVE METABOLIC PANEL Routine 02/08/2024 4:05 AM STUCCO LABORER CBC W/DIFF AUTOMATED Routine 02/08/2024 4:05 AM STUCCO LABORER SURG XR RETROGRD UROGRAPHY Routine 02/07/2024 10:13 AM STUCCO LABORER URINE BACTERIA CULTURE Routine 10:03 AM STUCCO LABORER CYSTOSCOPY STENT INSERTION/REMOVAL/FREY GE 02/07/2024 9:43 AM STUCCO LABORER LEFT URETER STONE TROPONIN, QUANT STAT 02/07/2024 5:45 AM STUCCO LABORER THYROID STIM HORMONE TSH Routine 02/07/2024 5:45 AM STUCCO LABORER HEMOGLOBIN, GLYCOSYLATED Routine 02/07/2024 5:45 AM STUCCO LABORER MAGNESIUM Routine 02/07/2024 5:45 AM STUCCO LABORER COMPREHENSIVE METABOLIC PANEL Routine 02/07/2024 5:45 AM STUCCO LABORER PROTHROMBIN TIME, VENOUS Routine 02/07/2024 5:45 AM STUCCO LABORER CBC W/DIFF AUTOMATED Routine 02/07/2024 5:45 AM STUCCO LABORER TROPONIN, QUANT STAT 02/06/2024 11:33 PM STUCCO LABORER ECG 12-LEAD Routine 02/06/2024 9:19 PM STUCCO LABORER URINE BACTERIA CULTURE STAT 8:00 PM STUCCO LABORER HC URINALYSIS AUTO W/O MICRO STAT 02/06/2024 8:[address] ABD+PEL WO CON STAT 02/06/2024 7:1 9 PM STUCCO LABORER BASIC METABOLIC PANEL STAT 02/06/2024 6:27 PM STUCCO LABORER CBC W/DIFF AUTOMATED STAT 02/06/2024 6:27 PM STUCCO LABORER HC URINALYSIS AUTO W/O MICRO STAT 01/09/2024 4:57 AM STUCCO LABORER LIPASE STAT 01/09/2024 2:11 AM STUCCO LABORER TROPONIN, QUANT STAT 01/09/2024 2:11 AM STUCCO LABORER COMPREHENSIVE METABOLIC PANEL STAT 01/09/2024 2:11 AM STUCCO LABORER ECG 12-LEAD Routine 01/09/2024 1:[address] ABD+PEL WO CON STAT 01/09/2024 1:1 6 AM STUCCO LABORER OUTSIDE LAB (SCAN ORDER) 01/08/2024 OUTSIDE LAB (SCAN ORDER) 01/08/2024 OUTSIDE LAB (SCAN ORDER) 01/08/2024 COLONOSCOPY GENERIC (SCAN ORDER) 09/15/2021 from Last 3 Months or Most Recently Relevant to Health Maintenance Results * (ABNORMAL) BASIC METABOLIC PANEL (02/18/2024 6:00 AM STUCCO LABORER) Only the most recent of2 resultswithin the time period is included. GLUCOSE 98 70 - 99 MG/DL 02/18/2024 9:03 AM STUCCO LABORER [facility] BUN 13 7 - 18 MG/DL 02/18/2024 9:03 AM STUCCO LABORER [facility] CREATININE S/P/B 1.04 0.7 - 1.3 MG/DL 02/18/2024 9:03 AM [facility] SODIUM S/P/B 138 136 - 145 MMOL/L 02/18/2024 9:03 AM [facility] POTASSIUM S/P/B 4.1 3.5 - 5.1 MMOL/L 02/18/2024 9:03 AM [facility] CHLORIDE S/P/B 107 97 - 115 MMOL/L 02/18/2024 9:03 AM [facility] CO2 27.2 21 - 32 MMOL/L 02/18/2024 9:03 AM [facility] CALCIUM S/P/B 8.7 8.5 - 10.1 MG/DL 02/18/2024 9:03 AM [facility] ANION GAP 3.8 2 - 10 MMOL/L 02/18/2024 9:03 AM [facility] BUN CREATININE RATIO 12.5 6 - 26 02/18/2024 9:03 AM [facility] GFR ESTIMATE 73(L) >90 ML/MIN/1.7 3 M2 02/18/2024 9:03 AM [facility] Comment: NOTE: eGFR is not calculated for patients <18 years of age or gender unknown. This is an estimated GFR calculation using the new CKD EPI creatinine equation without race and so does not require a correction factor for race. This estimated GFR should not be used for calculating drug doses. 02/18/2024 6:00 AM STUCCO LABORER us Kelly Gonzalez PA-C LABORATORY Final Result [facility] [address] [place] [address], [place] [phone] * (ABNORMAL) CBC W/DIFF AUTOMATED (02/18/2024 6:00 AM STUCCO LABORER) Only the most recent of6 resultswithin the time period is included. WBC 5.99 4.5 - 11.0 x10'3/uL 02/18/2024 6:14 AM [facility] RBC 2.39(L) 4.70 - 6.10 x10'6/uL 02/18/2024 6:14 AM [facility] HGB 8.7(L) 14.0 - 18.0 G/DL 02/18/2024 6:14 AM [facility] HCT 23.6(L) 43.0 - 54.0 % 02/18/2024 6:14 AM [facility] MCV 98.7(H) 80.0 - 94.0 FL 02/18/2024 6:14 AM [facility] MCH 36.4(H) 27.0 - 31.0 PG 02/18/2024 6:14 AM [facility] MCHC 36.9(H) 32.0 - 36.0 G/DL 02/18/2024 6:14 AM [facility] Comment:ARRIVED ON WARMER RDW 15.5(H) 11.5 - 14.5 % 02/18/2024 6:14 AM [facility] PLT 183 130 - 400 x10'3/uL 02/18/2024 6:14 AM [facility] MPV 11.1 9.3 - 12.2 FL 02/18/2024 6:14 AM [facility] DIFFERENTIAL TYPE AUTOMATED DIFFERENTIAL 02/18/2024 6:14 AM [facility] NEUTROPHILS % 64.0 % 02/18/2024 6:14 AM [facility] LYMPHOCYTES % 22.4 % 02/18/2024 6:14 AM [facility] MONOCYTES % 9.2 % 02/18/2024 6:14 AM [facility] EOSINOPHILS 1.8 % 02/18/2024 6:14 AM [facility] BASOPHILS 0.3 % 02/18/2024 6:14 AM [facility] IMMATURE GRANS % 2.3 % 02/18/20 6:14 AM STUCCO LABORER [facility] ABS. NEUTROPHILS 3.83 1.80 - 7.70 x10'3/uL 02/18/2024 6:14 AM [facility] ABS. LYMPHOCYTES 1.34 1.00 - 4.80 x10'3/uL 02/18/2024 6:14 AM [facility] ABS. MONOCYTES 0.55 0.30 - 0.82 x10'3/uL 02/18/2024 6:14 AM [facility] ABS. EOSINOPHILS 0.11 0.04 - 0.54 x10'3/uL 02/18/2024 6:14 AM [facility] ABS. BASOPHILS 0.02 0.01 - 0.08 x10'3/uL 02/18/2024 6:14 AM [facility] ABS. IMMATURE GRANULOCYTES 0.14 0.00 - 0.49 x10'3/uL 02/18/2024 6:14 AM [facility] 02/18/2024 6:00 AM STUCCO LABORER Kelly Gonzalez PA-C LABORATORY Final Result [facility] [address] [place] [address], [place] [phone] * (ABNORMAL) COMPREHENSIVE METABOLIC PANEL (02/17/2024 6:18 AM STUCCO LABORER) Only the most recent of5 resultswithin the time period is included. GLUCOSE 102(H) 70 - 99 MG/DL 02/17/2024 6:50 AM [facility] BUN 15 7 - 18 MG/DL 02/17/2024 6:50 AM [facility] CREATININE S/P/B 1.06 0.7 - 1.3 MG/DL 02/17/2024 6:50 AM [facility] SODIUM S/P/B 137 136 - 145 MMOL/L 02/17/2024 6:50 AM [facility] POTASSIUM S/P/B 4.1 3.5 - 5.1 MMOL/L 02/17/2024 6:50 AM [facility] CHLORIDE S/P/B 106 97 - 115 MMOL/L 02/17/2024 6:50 AM [facility] CO2 26.2 21 - 32 MMOL/L 02/17/2024 6:50 AM [facility] CALCIUM S/P/B 8.6 8.5 - 10.1 MG/DL 02/17/2024 6:50 AM [facility] BILIRUBIN TOTAL S/P/B 3.5(H) 0.2 - 1.2 MG/DL 02/17/2024 6:50 AM [facility] Comment: THIS ASSAY IS NOT RECOMMENDED FOR PATIENTS UNDERGOING TREATMENT WITH ELTROMBOPAG DUE TO THE POTENTIAL FOR FALSELY ELEVATED RESULTS. TOTAL PROTEIN S/P/B 6.2(L) 6.4 - 8.2 G/DL 02/17/2024 6:50 AM [facility] ALBUMIN S/P/B 3.3(L) 3.4 - 5.0 G/DL 02/17/2024 6:50 AM [facility] AST 44(H) 15 - 37 U/L 02/17/2024 6:50 AM STUCCO LABORER [facility] ALT 31 16 - 60 U/L 02/17/2024 6:50 AM STUCCO LABORER [facility] ALKALINE PHOSPHATASE S/P/B 109 50 - 136 U/L 02/17/2024 6:50 AM STUCCO LABORER [facility] ANION GAP 4.8 2 - 10 MMOL/L 02/17/2024 6:50 AM STUCCO LABORER [facility] BUN CREATININE RATIO 14.2 6 - 26 02/17/2024 6:50 AM STUCCO LABORER [facility] A/G RATIO 1.1 1.0 - 2.0 RATIO 02/17/2024 6:50 AM [facility] GFR ESTIMATE 72(L) >90 ML/MIN/1.7 3 M2 02/17/2024 6:50 AM STUCCO LABORER [facility] Comment: NOTE: eGFR is not calculated for patients <18 years of age or gender unknown. This is an estimated GFR calculation using the new CKD EPI creatinine equation without race and so does not require a correction factor for race. This estimated GFR should not be used for calculating drug doses. 02/17/2024 6:18 AM STUCCO LABORER us Viviane Horn NP LABORATORY Final Result Performing Organization Address City/[facility] Co de Phone Number [facility] [address] [place] [address], [place] [phone] * MAGNESIUM (02/17/2024 6:18 AM STUCCO LABORER) Only the most recent of2 resultswithin the time period is included. MAGNESIUM 2.1 1.8 - 2.4 MG/DL 02/17/2024 6:50 AM STUCCO LABORER [facility] 02/17/2024 6:18 AM STUCCO LABORER us Viviane L Horn [employer]PER[employer] LABORATORY Final Result Performing Organization Address City/State/[facility] Co de Phone Number [facility] [address] [place] [address], * CULTURE, BACTERIA, BLOOD (02/16/2024 2:50 PM STUCCO LABORER) SPEC DESCRIPTION BLOOD 02/16/2024 1:57 PM STUCCO LABORER [facility] SPECIAL REQUESTS NO SPECIAL REQUEST 02/16/2024 1:57 PM STUCCO LABORER [facility] CULTURE RESULT NO GROWTH 5 DAYS 02/21/2024 6:44 AM STUCCO LABORER [facility] BLOOD SPECIMEN OBTAINED FOR BLOOD CULTURE / Unknown 02/16/2024 2:50 PM STUCCO LABORER 02/16/2024 2:53 PM STUCCO LABORER Babs Aponte MD MICROBIOLOGY - GENERAL ORDERA BLES Final Result Performing Organization Address [facility] Co de Phone Number [facility] [address] [place] [address], * CT ABD+PEL W IV CON ONLY (02/16/2024 2:11 PM STUCCO LABORER) Anatomical Region Laterality Modality Abdomen Computed Tomogra phy 02/16/2024 2:23 PM STUCCO LABORER Impressions 02/16/2024 2:31 PM STUCCO LABORER IMPRESSION: 1. ??Interval placement of left ureteral stent. ??Persistent stone in the left ureter with mild left hydronephrosis. 2. ??Prostatomegaly. 3. ??Other chronic or nonurgent findings as described above. Referred By: ?? Interpreted By: Autl Prieto MD, 02/16/2024 2:23 PM Narrative 02/16/2024 2:31 PM STUCCO LABORER [facility] [address] [place], [place] [address] EXAMINATION: CT ABD+PEL W CON CLINICAL HISTORY: Kidney infection COMPARISON: 02/06/2024 DATE/TIME: 02/16/2024 2:02 PM TECHNIQUE: Multiplanar CT images of the abdomen and pelvis were obtained. ??IV contrast: uneventful intravenous administration of 100 mL Isovue 370. ??Oral contrast: None. ?? A dose lowering technique was used for this procedure, which may include, but is not limited to, dose reduction technique, automated exposure control, the use of iterative reconstruction, and ALARA (As Low As Reasonably Achievable) / Image Gently techniques. FINDINGS: Bibasilar atelectasis, left greater than right. ??Mild diffuse hepatic steatosis. ??Liver otherwise negative. ??Gallbladder is absent. ??Bile ducts are upper limits of normal caliber. ??Pancreas is negative. ??Benign splenic calcifications. ??Spleen otherwise negative. ??Adrenal glands are negative. Interval placement of left ureteral stent with proximal tip coiled in the central upper pole calyx and the distal tip coiled in the bladder. ??Persistent stone measuring approximately 4 mm in the proximal to mid left ureter. ??Minimal left hydronephrosis. ??No right hydronephrosis. ??Stable left renal cortical calcification. ??Small left renal cyst which does not require follow-up. ??Tiny low-density bilateral renal lesions, too small to characterize. ??Bladder wall thickness upper limits of normal. ??Mild to moderate prostatomegaly. ??Abdominal aorta is normal caliber with atherosclerotic calcification. No free air. ??Trace free pelvic fluid, uncertain etiology. ??Calcified pelvic phleboliths. ??No bowel obstruction or bowel wall technique. ??Normal appendix. Bilateral L5 pars defects with grade 1 spondylolisthesis of L5 over S1. ??There is thoracic and lumbar spondylosis. Procedure Note Atul Prieto MD - 02/16/2024 [facility] [address] [place], [place] [address] EXAMINATION: CT ABD+PEL W CON CLINICAL HISTORY: Kidney infection COMPARISON: 02/06/2024 DATE/TIME: 02/16/2024 2:02 PM TECHNIQUE: Multiplanar CT images of the abdomen and pelvis were obtained.IV contrast: uneventful intravenous administration of 100 mL Isovue 370.Oral contrast: None. A dose lowering technique was used for this procedure, which may include,but is not limited to, dose reduction technique, automated exposurecontrol, the use of iterative reconstruction, and ALARA (As Low AsReasonably Achievable) / Image Gently techniques. FINDINGS: Bibasilar atelectasis, left greater than right. Mild diffusehepatic steatosis. Liver otherwise negative. Gallbladder is absent.Bile ducts are upper limits of normal caliber. Pancreas is negative.Benign splenic calcifications. Spleen otherwise negative. Adrenal glandsare negative. Interval placement of left ureteral stent with proximal tip coiled in thecentral upper pole calyx and the distal tip coiled in the bladder.Persistent stone measuring approximately 4 mm in the proximal to mid leftureter. Minimal left hydronephrosis. No right hydronephrosis. Stableleft renal cortical calcification. Small left renal cyst which does notrequire follow-up. Tiny low-density bilateral renal lesions, too small tocharacterize. Bladder wall thickness upper limits of normal. Mild tomoderate prostatomegaly. Abdominal aorta is normal caliber withatherosclerotic calcification. No free air. Trace free pelvic fluid, uncertain etiology. Calcifiedpelvic phleboliths. No bowel obstruction or bowel wall technique. Normalappendix. 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 IMPRESSION: 1. Interval placement of left ureteral stent. Persistent stone in theleft ureter with mild left hydronephrosis. 2. Prostatomegaly. 3. Other chronic or nonurgent findings as described above. Referred By: Interpreted By: Atul Prieto MD, 02/16/2024 2:[address] Final Resul t * (ABNORMAL) URINALYSIS (02/16/2024 1:13 PM [facility]) Only the most recent of3 resultswithin the time period is included. SPECIMEN TYPE URINE CLEAN CATCH 02/16/2024 1:12 PM [facility] COLOR (U) LIGHT ORANGE 02/16/2024 1:51 PM [facility] TRANSPARENCY TURBID 02/16/2024 1:51 PM [facility] SPECIFIC GRAVITY (U) 1.024 1.001 - 1.030 02/16/2024 1:51 PM [facility] U PH 6.5 5.0 - 9.0 02/16/2024 1:51 PM [facility] LEUKOCYTES (U) 75(A) NEGATIVE 02/16/2024 1:51 PM [facility] NITRITES NEGATIVE NEGATIVE 02/16/2024 1:51 PM [facility] PROTEIN RANDOM (U) 70(H) <30 MG/DL 02/16/2024 1:51 PM [facility] GLUCOSE (U) NORMAL NORMAL MG/DL 02/16/2024 1:51 PM [facility] KETONES MG/DL (U) NEGATIVE NEGATIVE MG/DL 02/16/2024 1:51 PM [facility] UROBILINOGEN 2.0(A) NORMAL MG/DL 02/16/2024 1:51 PM [facility] BILIRUBIN (U) NEGATIVE NEGATIVE MG/DL 02/16/2024 1:51 PM [facility] BLOOD (U) 3+(A) NEGATIVE 02/16/2024 1:51 PM [facility] MUCUS MANY /LPF 02/16/2024 1:51 PM [facility] WBC/HPF 11(H) <6 /HPF 02/16/2024 1:51 PM [facility] RBC/HPF >100(H) <6 /HPF 02/16/2024 1:51 PM [facility] SQUAMOUS EPITHELIALS RARE /HPF 02/16/2024 1:51 PM [facility] URINE SPECIMEN OBTAINED BY CLEAN CATCH PROCEDURE / Unknown 02/16/2024 1:13 PM [facility] Rafat WOODY URINE ORDERABLES Final Resu lt Performing Organization Address City/[facility]/ZIP Co de Phone Number [facility] [address] [place] [address], [place] [phone] * URINE BACTERIA CULTURE (02/16/2024 1:13 PM [facility]) Only the most recent of3 resultswithin the time period is included. SPEC DESCRIPTION URINE CLEAN CATCH 02/16/2024 3:17 PM [facility] SPECIAL REQUESTS NO SPECIAL REQUEST 02/16/2024 3:17 PM [facility] CULTURE RESULT NO GROWTH 2 DAYS 02/18/2024 6:50 AM [facility] URINE SPECIMEN OBTAINED BY CLEAN CATCH PROCEDURE / Unknown 02/16/2024 1:13 PM [facility] 02/16/2024 5:24 PM [facility] Babs Aponte MD MICROBIOLOGY - GENERAL ORDERA BLES Final Result Performing Organization Address City/[facility]/ZIP Co de Phone Number [facility] [address] [place] [address], [place] [phone] * LACTIC ACID W REFLEX (SEPSIS) (02/16/2024 1:01 PM [facility]) LACTIC ACID VENOUS 0.7 0.4 - 2.0 MMOL/L 02/16/2024 1:40 PM [facility] 02/16/2024 1:01 PM [facility] us Rafat WOODY LABORATORY Final Resul t [facility] [address] [place] [address], * SURG XR RETROGRD UROGRAPHY (02/07/2024 10:13 AM [facility]) Anatomical Region Laterality Modality Abdomen Radiographic Leticia ging 02/08/2024 6:13 AM [facility] Impressions 02/08/2024 6:14 AM [facility] Impression: Fluoroscopic spot views of left retrograde urography with stent placement obtained for intraoperative control purposes and evaluated postoperatively. Referred By: ?? Interpreted By: Skip Quiñones MD, 02/08/2024 6:13 AM Narrative 02/08/2024 6:14 AM [facility] [address] [address] Intraoperative fluoroscopic views of the retrograde urography History: Left ureteral stent insertion, pyelogram, cystoscopy Dose: Total Dose Area Product: 3.3552 (Gycm2). Technique: ??Intraoperative fluoroscopy control images obtained. Findings: 2 submitted images demonstrate partial opacification of the left renal collecting system. ??A left ureteral stent is in position. Procedure Note Skip Quiñones MD - 02/08/[address] [address] Intraoperative fluoroscopic views of the retrograde urography [...] MD IMAGES ONLY Final Res ult * HEMOGLOBIN, GLYCATED (02/07/2024 5:45 AM [facility]) HGB A1C 3.8 <5.7 % 02/07/2024 7:47 AM [facility] Comment: ADA GUIDELINES 2010 5.7 TO 6.4% INCREASED RISK OF DIABETES > OR = 6.5% CONSISTENT WITH DIABETES ESTIMATED AVG GLUCOSE 62 mg/dL 02/07/2024 7:47 AM [facility] 02/07/2024 5:45 AM [facility] Tammi Gomez MD LABORATORY Final Resul t [facility] [address] [place] [address], [place] [phone] * (ABNORMAL) PROTHROMBIN TIME, VENOUS (02/07/2024 5:45 AM [facility]) PROTIME 13.2(H) 10.2 - 12.9 SEC 02/07/2024 6:16 AM [facility]ER [facility] INR 1.2 02/07/2024 6:16 AM [facility]ER [facility] Comment: Recommended INR Therapeutic Goals: ??2.0-3.0 Routine Therapy ??2.5-3.5 Mechanical Prosthetic Valves (High Risk) 02/07/2024 5:45 AM [facility] Tammi Gomez MD LABORATORY Final Resul t Performing Organization Address City/[facility]/ZIP Co de Phone Number [facility] [address] [place] [address], [place] [phone] * TROPONIN, QUANT (02/07/2024 5:45 AM [facility]ER) Only the most recent of3 resultswithin the time period is included. TROPONIN I HIGH SENSITIVITY 13 <79 ng/L 02/07/2024 6:33 AM [facility]ER [facility] Comment: HIGH DOSES OF BIOTIN, TROPONIN-SPECIFIC AUTOANTIBODIES, AND ANTIBODY THERAPY CONTAINING HAMA MAY INTERFERE WITH THIS TEST RESULT. CORRELATION TO CLINICAL HISTORY AND PRESENTATION RECOMMENDED. 02/07/2024 5:45 AM [facility]ER Tammi Gomez MD LABORATORY Final Resul t Performing Organization Address City/[facility] Co de Phone Number [facility] [address] [place] [address], [place] [phone] * THYROID STIM HORMONE, TSH (02/07/2024 5:45 AM [facility]ER) Pathologist [facility] TSH 1.920 0.358 - 3.74 uIU/ML 02/07/2024 6:33 AM [facility] LABORER [facility] Comment: HIGH DOSES OF BIOTIN MAY INTERFERE WITH THIS TEST RESULT. CORRELATION TO CLINICAL HISTORY AND PRESENTATION RECOMMENDED. 02/07/2024 5:45 AM [facility]ER Tammi Gomez MD LABORATORY Final Resul t Performing Organization Address City/[facility]/ZIP Co de Phone Number [facility] [address] [place] [address], [place] [phone] * ECG 12 lead (02/06/2024 9:19 PM [facility]ER) Only the most recent of2 resultswithin the time period is included. 02/06/2024 9:19 PM [facility] LAB[facility]ER Narrative [facility] - 02/07/2024 7:15 AM [facility] LABORER ?[place]`vickie Preethi ? [address] [place] ? Test Date: ?2024-02-06 Pat Name: ? RICHARD PRINGLE ?Department: ?? 41 ? Room: ? C03 Gender: ? Male ? 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 : ?1945 ? Requested By: QUAN BONNER Order Number: [id number] ? Reading MD: ?? Marie Pickering ? Measurements Intervals ?Aladdin ? Rate: ? 81 ? P: ?60 NE: ? 133 ?QRS: ?23 QRSD: ? 121 ?T: ?14 QT: ? 368 ? QTc: ?428 ? Interpretive Statements SINUS RHYTHM MODERATE INTRAVENTRICULAR CONDUCTION DELAY ??[110+ ms QRS DURATION] NONSPECIFIC T-WAVE ABNORMALITY Compared to ECG 01/09/2024 01:38:33 Intraventricular conduction delay now present T-wave abnormality now present CO LABORER Procedure Note Marie Pickering MD - 02/07/[address] [facility] 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 ([facility] * CT ABD+PEL WO CON (02/06/2024 7:19 PM [facility]ER) Only the most recent of2 resultswithin the time period is included. Anatomical Region Laterality Modality Abdomen Computed Tomogra phy 02/06/2024 7:57 PM [facility] LABORER Impressions 02/06/2024 8:10 PM [facility]ER IMPRESSION: APPROXIMATE 4 MM CALCULUS IN THE [...] 02/06/2024 7:57 PM Narrative 02/06/2024 8:10 PM [facility] LABORER [address] [address] EXAM: CT ABD+PEL WO CON INDICATION: Left [...] Procedure Note Dionicio Kaufman MD - 02/06/[address] [address] EXAM: CT ABD+PEL WO CON INDICATION: Left [...] PM Dina WOODY CT Final Result * LIPASE (01/09/2024 2:11 AM [facility] LABORER) LIPASE 54 13 - 75 UNITS/L 01/09/2024 2:[address] [facility] 01/09/2024 2:11 AM [facility]UCCO LABORER us Dina WOODY LABORATORY Final Result [facility] [address] [place] [address], [place] [phone] * OUTSIDE LAB (SCAN ORDER) (01/08/2024) Only the most recent of3 resultswithin the time period is included. 01/08/2024 [facility] Scanned SCANNING Final Resu lt * COLONOSCOPY GENERIC (09/15/2021) 09/15/2021 Narrative 09/15/2021 Ordered by an unspecified provider. us Documents Scanned SCANNING Final Result from Last 3 Months or Most Recently Relevant to Health Maintenance Insurance MEDICARE [facility] Advance Directives * Full Code (Latest Code Status on File) Date Activated Date Inactivated Comments 02/16/2024 3:32 PM 02/18/2024 4:51 PM * Full Code Date Activated Date Inactivated Comments 02/06/2024 10:41 PM 02/08/2024 5:57 PM * Full Code Date Activated Date Inactivated Comments 07/08/2023 1:12 AM 07/09/2023 7:44 PM Care Teams Silk Spreader Relationship Specialty Start Date End Date Ryan Maloney DO [address] [place] [id number] PCP - General FAMILY PRACTICE 04/20/18
--- OUTSIDE RECORDS SUMMARY | 2024-02-22 10:54 | XMS_ITS | Encounter Summary ---
Author Organization [facility] Address [address] [place] [address]. [place], [place] [address] [place] [address] Care Team Providers Care Fire Management Specialist Name Role Phone Haider Ryan Beach DO Primary Care Provider + Encounter Details Date Type Department Care Team (Latest Contact Info) Description 01/17/2024 Travel Social History Tobacco Use Types Packs/Day Years Used Date Smoking Tobacco: Former Cigarettes 1.5 3 1 03/1964 - 1967 Passive Smoke Exposure: Never Smokeless Tobacco: Never Comments:quit Alcohol Use Standard Drinks/Week Comments No 0 (1 standard drink = 0.6 oz pur e alcohol) [facility] Utilities Answer Date Recorded In the past 12 months has f [facility] [employer], gas, oil, or water [employer] threatened to shut off services in your home? No 07/07/2023 Humiliation, Afraid, Rape, and Kick questionnair e Answer Date Recorded Within the last year, have y ou been afraid of your partner or ex-partner? No 07/07/2023 Within the last year, have y ou been humiliated or emotionally abused in other ways by your partner or ex-partner? No Within the last year, have y ou been kicked, hit, slapped, or otherwise physically hurt by your partner or ex-partner? No 07/07/2023 Within the last year, have y ou been raped or forced to have any kind of sexual activity by your partner or ex-partner? No 07/07/2023 AUDIT-C Answer Date Recorded Frequency of Alcohol Consumption Never 04/26/2019 Average Number of Drinks Not on file 020 Frequency of Binge Drinking Not on file 07/2019 Overall Financial Resource Strain (CARDIA) Answe r Date Recorded How hard is it for you to pa y for the very basics like food, housing, medical care, and heating? Not hard at all 07/07/2023 PHQ-2 Answer Date Recorded Patient Health Questionnaire-2 Score 0 06/23/2023 Hunger Vital Sign Answer Date Recorded Within the past 12 months, y ou worried that your food would run out before you got the money to buy more. Never true 07/07/19 24 Within the past 12 months, t he food you bought just didn't last and you didn't have money to get more. Never true 07/07/2023 PRAPARE - Transportation Answer Date Re corded In the past 12 months, has l ack of transportation kept you from medical appointments or from getting medications? No 06/20 In the past 12 months, has l ack of transportation kept you from meetings, work, or from getting things needed for daily living? No 07/07/2023 Housing Stability Vital Sign Answer Anand e Recorded In the last 12 months, was t here a time when you were not able to pay the mortgage or rent on time? No 07/07/2023 In the past 12 months, how m any times have you moved where you were living? 0 07/07/2023 At any time in the past 12 m [facility], were you homeless or living in a jail (including now)? No 07/07/2023 Sex and Gender Information Value Date Recorded Sex Assigned at Not on file Legal Sex Male 11:15 AM DEPUTY HEAD Gender Identity Not on file Sexual Orientation [...] decisions? Answer Entry Date Author Status No 07/07/2023 11:18 PM JOSET Edmund Finley III, RN Active documented in this encounter Plan of Treatment Not on file documented as of this encounter Visit Diagnoses Not on filedocumented in this encounter Additional Health Concerns Assessment Noted Time PHQ-9 Depression Total Score: 1 06/09/19 21 9:12 AM CDT documented as of this encounter Care Teams Fire Management Specialist Relationship Specialty Start Date End Date Ryan Maloney DO [address] [place] [id number] PCP - General FAMILY PRACTICE 04/20/18 documented as of this encounter
--- OUTSIDE RECORDS SUMMARY | 2024-02-22 10:54 | XMS_ITS | Encounter Summary ---
Author Organization [facility] Address [address] [place] [address]. [place], [place] [id number] [place] [id number] Care Team Providers Care [employer] And Track And [employer] Coach Name Role Phone Ryan Maloney DO Primary Care Provider + Reason for Referral * Imaging (Emergency) - New Request Specialty Diagnoses / Procedures Referred By Ana t Referred To Contact RADIOLOGY Procedures CT ABD+PEL WO CON Dina Baez PA [address] [place] [address] Phone: tel: fax: Referral ID Status Reason Start Date Expiration Date V isits Requested Visits Authorized [id number] New Request 01/09/2024 01/08/2025 1 1 [facility] Reason for Visit * Reason Comments Abdominal Pain Encounter Details Date Type Department Care Team (Late st Contact Info) Description 01/09/2024 1:14 AM [facility] ORDERLY - 01/09/2024 5:55 AM MENT[facility] ORDERLY Emergency [facility] [place] [address] Ketan Uriarte DO [address] [place] [address] Abdominal Pain Discharge Disposition: Home or Self Care (Routine Discharge) Social History Tobacco Use Types Packs/Day Years Used Date Smoking Tobacco: Former Cigarettes 1.5 3 1 03/1964 - 1967 Passive Smoke Exposure: Never Smokeless Tobacco: Never Comments:quit Alcohol Use Standard Drinks/Week Comments No 0 (1 standard drink = 0.6 oz pur e alcohol) [facility] Utilities Answer Date Recorded In the past [...] time in the past 12 m [facility], were you homeless or living in a correction (including now)? No 07/07/2023 Sex and Gender Information Value Date Recorded Sex Assigned at Not on file Legal Sex Male 11:15 AM MENTAL HEALTH ORDERLY Gender Identity Not on file Sexual Orientation Not on file documented as of this encounter Last Filed Vital Signs Vital Sign Reading Time Taken Comments Blood Pressure 106/59 01/09/2024 5:40 AM [facility] Pulse 77 01/09/2024 5:40 AM [facility] ORDERLY Temperature 36.6 ??C (97.9 ??F) 01/09/2024 12:[address] Respiratory Rate 19 01/09/2024 5:40 AM M[facility] ORDERLY Oxygen Saturation 96% 01/09/2024 5:40 AM M[facility] HE[facility] ORDERLY Inhaled Oxygen Concentration - - Weight 72.6 kg (160 lb) 01/09/2024 12:50 AM M[facility] ORDERLY Height 170.2 cm (5' 7 ) 01/09/2024 12:50 AM MENT[facility] HE[facility] ORDERLY Body Mass Index 25.06 01/09/2024 12:50 AM MENT[facility] ORDERLY documented in this encounter Functional Status * [...] Date Author Status No 07/07/2023 11:18 PM Edmund Key III, RN Active documented in this encounter Discharge Instructions * Discharge Instructions* Ketan Uriarte DO - 01/09/2024 5:23 AM MENTAL HEALTH ORDERLY You were evaluated for your flank pain symptoms and found to have a kidney stone. Kidney stone is approximately 4 mm and is right at the size of stones that are expected to pass spontaneously. We have given you medication to help dilate your ureter to help pass the stone with less difficulty. We advise that you sit down on the toilet when you void. Should you have continued pain, develop severe nausea and vomiting, inability to urinate, fevers or chills then you should seek emergent medical evaluation. Otherwise, please follow-up with your primary care physician within 1 week of discharge from the emergency department. [facility] * Attachments The following attachments cannot be sent through Care Everywhere. * Kidney Stones Discharge Instructions (Wallisian) * Renal Colic (Wallisian) documented in this encounter Medications at Time of Discharge B Femgrqa-N-Ltbuu Acid (DIATX OR) Take 1 tablet by [...] MOUTH TWICE DAILY 180 tablet 3 08/16/2023 Bjgixv-Qlenc-Dydd Ac-Ca Fructo (MOVE FREE [facility]) Tab Take 1 tablet by mouth daily. magnesium oxide 250 MG tablet Take 1 tablet (250 mg total) by mouth nightly at bedtime. cefdinir (OMNICEF) 300 MG Cap capsule Take 1 capsule (300 mg total) by mouth 2 (two) times daily. 20 capsule 01/09/2024 4 HYDROcodone-acetamin ophen (NORCO) 5-325 MG tabletIndications:Ac kaibab Pain < 3 Day Supply Take 1 tablet by mouth every 6 (six) hours as needed. Indications: Acute Pain < 3 Day Supply 12 tablet 01/09/2024 4 ketorolac (TORADOL) 10 MG tablet Take 1 tablet (10 mg total) by mouth every 6 (six) hours as needed for Pain. 20 tablet 01/09/2024 4 ondansetron (ZOFRAN-ODT) 4 MG disintegrating tablet Take 1 tablet (4 mg total) by mouth every 8 (eight) hours as needed. 257.14 tablet 01/09/2024 4 tamsulosin (FLOMAX) 0.4 MG Cap Take 1 capsule (0.4 mg total) by mouth daily. 30 capsule 01/09/2024 4 Zinc Acetate, Oral, (GALZIN OR) Take 1 tablet by mouth daily. 15 mg once daily 4 documented as of this encounter ED Notes * Cori Samano RN - 01/09/2024 5:54 AM CST Provider discussed today's findings with the patient/family. The patient has been given informationregarding their treatment, follow up and concerning symptoms for which they should seek urgent or emergent attention. I have expressed the the importance of seeking attention should there be any new,or worsening symptoms or persistence of their condition. Patient verbalized understanding of the discharge instructions. [facility] * Ketan Uriarte DO - 01/09/2024 2:10 AM CST [place], [place] EMERGENCY DEPARTMENT ENCOUNTER Chief Complaint Chief Complaint Patient presents with Abdominal Pain History of Present Illness Provider at Bedside Date/Time Event User Comments 01/09/24 0050 Provider at Bedside Assessing Patient DINA BAEZ -- Abdominal Pain Associated symptoms: dysuria, fever and nausea Associated symptoms: no chest pain, no chills, no cough, no shortness of breath and no vomiting The patient is a 78-year-old male with a PMH of anemia, cataract, chronic lymphocytic leukemia, GERD, and immune deficiency disorder who presents to the emergency department for evaluation of intermittent left sided abdominal pain that began just prior to going to bed yesterday evening. Patient does have a hx of kidney stones and states this to feel different in that he usually experiences pain in his left flank. Patient describes pain to feel like someone is cutting him open . No aggravating or relieving factors noted. Patient reports associated low grade fever at home and nausea. He also reports dysuria, discoloration, and difficulty urinating and states to feel like he may have a UTI. Patient reports to have recently been put on antibiotic medication 3 weeks ago for a possible UTI andstates that the culture came back negative at that time. He is not currently on antibiotics. Last BM yesterday morning. Last urinated yesterday night just prior to going to bed. No dark of tarry stools and no blood in stool. Per quality controller at bedside, patient does not look more pale than usual. Patient is not anticoagulated. No hx of heart disease. Patient does report to be a former smoker and reports no current tobacco use. Abdominal surgical hx includes cholecystectomy. Medical History ALLERGIES: Review of patient's allergies indicates: Allergen Reactions [place] [Hydrocodone-Acetaminophen] Nausea Only MEDICATIONS: Prior to Admission medications Medication Sig Start Date End Date Taking? Authorizing Provider cefdinir (OMNICEF) 300 MG Cap capsule Take 1 capsule (300 mg total) by mouth 2 (two) times daily. 01/09/24 Yes Ketan Uriarte, DO HYDROcodone-acetaminophen (NORCO) 5-325 MG tablet Take 1 tablet by mouth every 6 (six) hours as needed. Indications: Acute Pain < 3 Day Supply 01/09/24 Yes Ketan Uriarte DO ketorolac (TORADOL) 10 MG tablet Take 1 tablet (10 mg total) by mouth every 6 (six) hours as neededfor Pain. 01/09/24 01/14/24 Yes Ketan Uriarte, DO ondansetron (ZOFRAN-ODT) 4 MG disintegrating tablet Take 1 tablet (4 mg total) by mouth every 8 (eight) hours as needed. 01/09/24 Yes Ketan Uriarte DO tamsulosin (FLOMAX) 0.4 MG Cap Take 1 capsule (0.4 mg total) by mouth daily. 01/09/24 Yes Ketan Uriarte DO B Evoyuek-I-Krxha Acid (DIATX OR) Take 1 tablet by mouth daily. [facility] Calcium Carbonate Antacid (CALCIUM CARBONATE OR) Take 600 mg by mouth daily. [facility] Cholecalciferol (VITAMIN D3) 2000 units Tab Take 0.5 tablets (1,000 Units total) by mouth 2 (two) times a day. [facility] Cinnamon Bark Powder Take 1,200 mg by mouth daily. [facility] famotidine (PEPCID) 20 MG tablet TAKE 1 TABLET(20 MG) BY MOUTH TWICE DAILY 08/16/23 Ryan Maloney DO Evtyvk-Cbiif-Qtlk Ac-Ca Fructo (MOVE FREE [facility]) Tab Take 1 tablet by mouth daily. [facility] magnesium oxide 250 MG tablet Take 1 tablet (250 mg total) by mouth daily. [facility] Zinc Acetate, Oral, (GALZIN OR) Take 1 tablet by mouth daily. 15 mg once daily [facility] PAST MEDICAL HISTORY: Past Medical History: Diagnosis Date Anemia Cataract Chronic lymphocytic leukemia (CMS/HCC HHS/HCC) GERD (gastroesophageal reflux disease) Immune deficiency disorder (CMS/HCC HHS/HCC) PAST SURGICAL HISTORY: Past Surgical History: Procedure Laterality Date CHOLECYSTECTOMY EXCISION BASAL CELL CARCINOMA KNEE ARTHROSCOPY Right knee REMOVAL OF SPERM DUCT(S) TRANSURETHRAL RESECTION OF BLADDER FAMILY HISTORY: Family History Problem Relation Name Age of Onset Cancer Mother Margert skin Heart Disease Maternal Grandmother Verti Cancer Sister Radha SOCIAL HISTORY: Social History [...] No Review of Systems Review of Systems Constitutional: Positive for fever. Negative for chills. Respiratory: Negative for cough and shortness of breath. Cardiovascular: Negative for chest pain and palpitations. Gastrointestinal: Positive for abdominal pain and nausea. Negative for blood in stool and vomiting. Genitourinary: Positive for difficulty urinating and dysuria. Skin: Negative for pallor. Neurological: Negative for weakness. Physical Exam Filed Vitals: 01/09/24 0345 01/09/24 0400 01/09/24 0500 01/09/24 0540 BP: 108/55 130/61 106/59 Pulse: 76 75 78 77 Resp: Temp: TempSrc: SpO2: 94% 94% 97% 96% Weight: Height: Physical Exam Constitutional: General: He is not in acute distress. Appearance: Normal appearance. He is normal weight. He is not ill-appearing, toxic-appearing or diaphoretic. HENT: Head: Normocephalic and atraumatic. Right Ear: External ear normal. Left Ear: External ear normal. Nose: Nose normal. Mouth/Throat: Mouth: Mucous membranes are moist. Pharynx: Oropharynx is clear. Eyes: Extraocular Movements: Extraocular movements intact. Conjunctiva/sclera: Conjunctivae normal. Pupils: Pupils are equal, round, and reactive to light. Cardiovascular: Rate and Rhythm: Normal rate and regular rhythm. Pulses: Normal pulses. Heart sounds: Normal heart sounds. Pulmonary: Effort: Pulmonary effort is normal. Breath sounds: Normal breath sounds. Abdominal: General: Abdomen is flat. Bowel sounds are normal. There is no distension. Palpations: Abdomen is soft. There is no mass. Tenderness: There is no abdominal tenderness. There is guarding. There is no right CVA tenderness, left CVA tenderness or rebound. Hernia: No hernia is present. Musculoskeletal: General: No swelling. Normal range of motion. Cervical back: Normal range of motion and neck supple. Skin: General: Skin is warm and dry. Capillary Refill: Capillary refill takes less than 2 seconds. Neurological: General: No focal deficit present. Mental Status: He is alert and oriented to person, place, and time. Cranial Nerves: No cranial nerve deficit. Motor: No weakness. Psychiatric: Mood and Affect: Mood normal. Behavior: Behavior normal. Diagnostic Studies / Procedures ELECTROCARDIOGRAMS: Results for orders placed or performed during the hospital encounter of 01/09/24 ECG [address] [facility] [address] Test Date: 2024-01-09 Pat Name: RICHARD PRINGLE Department: 41 Room: [facility] Gender: Male Skein Washer: [id number] : 1945 Requested By: DINA BAEZ Order Number: [id number] Reading MD: Measurements Intervals [place] Rate: 61 P: 84 ND: 127 QRS: 60 QRSD: 109 T: 36 QT: 395 QTc: 398 Interpretive Statements SINUS RHYTHM Compared to ECG 07/07/2023 15:33:48 Incomplete right bundle-branch block no longer present T-wave abnormality no longer present LABORATORY STUDIES: Results for orders placed or performed during the hospital encounter of 01/09/24 COMPREHENSIVE METABOLIC PANEL Result Value Ref Range GLUCOSE 144 (H) 70 - 99 MG/DL BUN 24 (H) 7 - 18 MG/DL CREATININE S/P/B 1.24 0.7 - 1.3 MG/DL SODIUM S/P/B 139 136 - 145 MMOL/L POTASSIUM S/P/B 3.9 3.5 - 5.1 MMOL/L CHLORIDE S/P/B 108 97 - 115 MMOL/L CO2 24.1 21 - 32 MMOL/L CALCIUM S/P/B 9.2 8.5 - 10.1 MG/DL BILIRUBIN TOTAL S/P/B 3.9 (H) 0.2 - 1.2 MG/DL TOTAL PROTEIN S/P/B 6.7 6.4 - 8.2 G/DL ALBUMIN S/P/B 3.8 3.4 - 5.0 G/DL AST 46 (H) 15 - 37 U/L ALT 26 16 - 60 U/L ALKALINE PHOSPHATASE S/P/B 138 (H) 50 - 136 U/L ANION GAP 6.9 2 - 10 MMOL/L BUN CREATININE RATIO 19.4 6 - 26 A/G RATIO 1.3 1.0 - 2.0 RATIO GFR ESTIMATE 60 (L) >90 ML/MIN/1.73 M2 TROPONIN, QUANT Result Value Ref Range TROPONIN I HIGH SENSITIVITY 11 <79 ng/L URINALYSIS Result Value Ref Range SPECIMEN TYPE URINE CLEAN CATCH COLOR (U) YELLOW TRANSPARENCY TURBID SPECIFIC GRAVITY (U) 1.016 1.001 - 1.030 U PH 6.5 5.0 - 9.0 LEUKOCYTES (U) 500 (A) NEGATIVE NITRITES 2+ (A) NEGATIVE PROTEIN RANDOM (U) 20 <30 MG/DL GLUCOSE (U) NORMAL NORMAL MG/DL KETONES MG/DL (U) NEGATIVE NEGATIVE MG/DL UROBILINOGEN NORMAL NORMAL MG/DL BILIRUBIN (U) NEGATIVE NEGATIVE MG/DL BLOOD (U) 3+ (A) NEGATIVE MUCUS RARE /LPF WBC/HPF >100 (H) <6 /HPF RBC/HPF >100 (H) <6 /HPF LIPASE Result Value Ref Range LIPASE 54 13 - 75 UNITS/L IMAGING STUDIES CT ABD+PEL WO CON Final Result by User, [id number] (01/08 202) [address] [address] INDICATION: Left flank pain COMPARISON: CT of [...] normal limits for degree of distention. Top normal size prostate. Small bilateral fat-containing inguinal hernias without [...] By: Yunior Traore MD, 01/09/2024 1:43 AM ED Course / Medical Decision Making Medical Decision Making 78-year-old presenting for chief complaint of left-sided flank pain. Has evidence of nephrolithiasis. Had discussion with the patient and his son at the bedside. They opted for trial of passage at home with tamsulosin and pain control. Patient able to urinate. No evidence of sepsis on clinical exam. Low suspicion for acutely septic stone. Patient has cold agglutinin disease and therefore CBC withthe obtainable due to laboratory issues. Chemistry otherwise reassuring.At this time there are no further treatment or diagnostic considerations in the ED. I have educated the patient/responsible parties about the red flag signs and symptoms that would otherwise necessitate emergent medical evaluation and provided them with strict return to ED precautions to which they verbalized understanding and they agree with the plan. Patient is otherwise stable for discharge to home. Vital signs stable atthe time of discharge from the ED. Amount and/or Complexity of Data Reviewed Independent Historian: Details: Rhinologist at bedside and patient provide history. External Data Reviewed: notes. Details: Reviewed discharge summary from 07/09/23 for Pneumonia, meta pneumovirus Anemia Acute hypoxic respiratory failure Labs: ordered. Decision-making details documented in ED Course. Radiology: ordered. Decision-making details documented in ED Course. ECG/medicine tests: ordered. Decision-making details documented in ED Course. Critical Care Total time providing critical care: 35 minutes Pulse Ox ordered and interpreted: Saturation: 99 (%) Oxygen Delivery: Room air Interpretation: No acute hypoxia at this time. Rhythm strip ordered and interpreted: Normal sinus rhythm. Rate 67. No ectopy. Data reviewed: All current, pertinent and timely studies (laboratory, imaging, and procedures) wereordered and results reviewed by Ketan Uriarte DO unless otherwise noted. Triage notes and available nursing notes reviewed. Previous medical record reviewed when available. Repeat vital signs reviewed. Medications ondansetron (ZOFRAN) injection 4 mg (4 mg Intravenous Given 01/09/24 020) morphine injection 4 mg (4 mg Intravenous Given 01/09/24 0200) lactated ringers bolus infusion 1,000 mL (0 mLs Intravenous Infusion Stop Time 01/09/24348) tamsulosin (FLOMAX) capsule 0.4 mg (0.4 mg Oral Given 01/09/24233) ketorolac (TORADOL) injection 15 mg (15 mg Intravenous Given 01/09/24233) ondansetron (ZOFRAN-ODT) disintegrating tablet 4 mg (4 mg Oral Given 01/09/24533) HYDROcodone-acetaminophen (NORCO) 5-325 MG tablet 1 tablet (1 tablet Oral Given 01/09/24533) cefdinir (OMNICEF) capsule 300 mg (300 mg Oral Given 01/09/24533) Clinical Impression Nephrolithiasis (Primary) Discharge Medication List as of 01/09/2024 5:23 AM START taking these medications Details cefdinir (OMNICEF) 300 MG Cap capsule Take 1 capsule (300 mg total) by mouth 2 (two) times daily., Starting Mon01/09/2024, Eprescribe Class: Eprescribe [id number] [place], [place] - [address] [place] [address] RD AT [facility] [address] (Ph #: [phone]) HYDROcodone-acetaminophen (NORCO) 5-325 MG tablet Take 1 tablet by mouth every 6 (six) hours as needed. Indications: Acute Pain < 3 Day Supply, Starting Mon01/09/2024, Eprescribe Class: Eprescribe Pharmacy: [facility] [address] [place] [address] [facility] [address] (Ph #: [phone]) ketorolac (TORADOL) 10 MG tablet Take 1 tablet (10 mg total) by mouth every 6 (six) hours as neededfor Pain., Starting Mon01/09/2024, Until Mon01/14/2024 at 2359, Eprescribe Class: Eprescribe Pharmacy: [facility] [address] [place] [address] [facility] [address] (Ph #: [phone]) ondansetron (ZOFRAN-ODT) 4 MG disintegrating tablet Take 1 tablet (4 mg total) by mouth every 8 (eight) hours as needed., Starting Mon01/09/2024, Eprescribe Class: Eprescribe Pharmacy: [facility] [address] [place] [address] [facility] [address] (Ph #: [phone]) tamsulosin (FLOMAX) 0.4 MG Cap Take 1 capsule (0.4 mg total) by mouth daily., Starting Mon01/09/2024, Eprescribe Class: Eprescribe Pharmacy: [facility] [address] [place] [address] [facility] [address] (Ph #: [phone]) Disposition: Discharge Follow-Up: Ryan Maloney DO IMelanie, acting as a scribe, am personally taking down the notes in the presence of Ketan Uriarte DO. Take no action on this note until reviewed and authenticated by the physician.Thisnote was dictated using a voice dictation software please contact for any needed clarification. Ketan Uriarte DO 01/09/24 0643 [facility] * Yandy Guthrie RN - 01/09/2024 12:48 AM CST Pt presented to ED with c/o left sided abdominal pain that started suddenly after getting in bed. Pt reports pain as constant and describes it as stabbing. Pt reports having chills last night that have since ceased. Does report nausea. Denies SOB, CP, or further symptoms. [facility] documented in this encounter Plan of Treatment Not on file documented as of this encounter Procedures Procedure Name Priority Date/Time Associated Diagnosis Comments HC URINALYSIS AUTO W/O MICRO STAT 01/09/2024 4:57 AM MENTAL HEALTH ORDERLY COMPREHENSIVE METABOLIC PANEL STAT 01/09/2024 2:11 AM MENTAL HEALTH ORDERLY TROPONIN, QUANT STAT 01/09/2024 2:11 AM MENTAL HEALTH ORDERLY LIPASE STAT 01/09/2024 2:11 AM MENTAL HEALTH ORDERLY ECG 12-LEAD Routine 01/09/2024 1:[address] ABD+PEL WO CON STAT 01/09/2024 1:1 6 AM MENTAL HEALTH ORDERLY documented in this encounter Results * (ABNORMAL) URINALYSIS (01/09/2024 4:57 AM MENTAL HEALTH ORDERLY) SPECIMEN TYPE URINE CLEAN CATCH 01/09/2024 5:03 AM MENTAL HEALTH ORDERLY [facility] COLOR (U) YELLOW 01/09/2024 5:14 AM MENTAL HEALTH ORDERLY [facility] TRANSPARENCY TURBID 01/09/2024 5:14 AM MENTAL HEALTH ORDERLY [facility] SPECIFIC GRAVITY (U) 1.016 1.001 - 1.030 01/09/2024 5:14 AM MENTAL HEALTH ORDERLY [facility] U PH 6.5 5.0 - 9.0 01/09/2024 5:14 AM MENTAL HEALTH ORDERLY [facility] LEUKOCYTES (U) 500(A) NEGATIVE 01/09/2024 5:14 AM MENTAL HEALTH ORDERLY [facility] NITRITES 2+(A) NEGATIVE 01/09/2024 5:14 AM [facility] PROTEIN RANDOM (U) 20 <30 MG/DL 01/09/2024 5:14 AM [facility] GLUCOSE (U) NORMAL NORMAL MG/DL 01/09/2024 5:14 AM [facility] KETONES MG/DL (U) NEGATIVE NEGATIVE MG/DL 01/09/2024 5:14 AM [facility] UROBILINOGEN NORMAL NORMAL MG/DL 01/09/2024 5:14 AM [facility] BILIRUBIN (U) NEGATIVE NEGATIVE MG/DL 01/09/2024 5:14 AM [facility] BLOOD (U) 3+(A) NEGATIVE 01/09/2024 5:14 AM [facility] MUCUS RARE /LPF 01/09/2024 5:14 AM [facility] WBC/HPF >100(H) <6 /HPF 01/09/2024 5:14 AM [facility] RBC/HPF >100(H) <6 /HPF 01/09/2024 5:14 AM [facility] URINE SPECIMEN OBTAINED BY CLEAN CATCH PROCEDURE / Unknown 01/09/2024 4:57 AM MENTAL HEALTH ORDERLY us Dina WOODY URINE ORDERABLES Final Result [facility] [address] [place] [address], [place] [phone] * LIPASE (01/09/2024 2:11 AM MENTAL HEALTH ORDERLY) LIPASE 54 13 - 75 UNITS/L 01/09/2024 2:54 AM [facility] 01/09/2024 2:11 AM MENTAL HEALTH ORDERLY us Dina WOODY LABORATORY Final Result Performing Organization Address [facility] Co de Phone Number [facility] [address] [place] [address], [place] [phone] * TROPONIN, QUANT (01/09/2024 2:11 AM MENTAL HEALTH ORDERLY) Pathologist [facility] TROPONIN I HIGH SENSITIVITY 11 <79 ng/L 01/09/2024 2:54 AM [facility] ORDERLY [facility] Comment: HIGH DOSES OF BIOTIN, TROPONIN-SPECIFIC AUTOANTIBODIES, AND ANTIBODY THERAPY CONTAINING HAMA MAY INTERFERE WITH THIS TEST RESULT. CORRELATION TO CLINICAL HISTORY AND PRESENTATION RECOMMENDED. 01/09/2024 2:11 AM MENTAL HEALTH ORDERLY Dina WOODY LABORATORY Final Result Performing Organization Address [facility] Co de Phone Number [facility] [address] [place] [address], [place] [phone] * (ABNORMAL) COMPREHENSIVE METABOLIC PANEL (01/09/2024 2:11 AM [facility]ALTH ORDERLY) GLUCOSE 144(H) 70 - 99 MG/DL 01/09/2024 2:54 AM [facility] ORDERLY [facility] BUN 24(H) 7 - 18 MG/DL 01/09/2024 2:54 AM [facility] ORDERLY [facility] CREATININE S/P/B 1.24 0.7 - 1.3 MG/DL 01/09/2024 2:54 AM [facility] SODIUM S/P/B 139 136 - 145 MMOL/L 01/09/2024 2:54 AM [facility]LY [facility] POTASSIUM S/P/B 3.9 3.5 - 5.1 MMOL/L 01/09/2024 2:54 AM [facility] CHLORIDE S/P/B 108 97 - 115 MMOL/L 01/09/2024 2:54 AM [facility] CO2 24.1 21 - 32 MMOL/L 01/09/2024 2:54 AM [facility] CALCIUM S/P/B 9.2 8.5 - 10.1 MG/DL 01/09/2024 2:54 AM [facility] BILIRUBIN TOTAL S/P/B 3.9(H) 0.2 - 1.2 MG/DL 01/09/2024 2:54 AM [facility] Comment: THIS ASSAY IS NOT RECOMMENDED FOR PATIENTS UNDERGOING TREATMENT WITH ELTROMBOPAG DUE TO THE POTENTIAL FOR FALSELY ELEVATED RESULTS. TOTAL PROTEIN S/P/B 6.7 6.4 - 8.2 G/DL 01/09/2024 2:54 AM [facility] ALBUMIN S/P/B 3.8 3.4 - 5.0 G/DL 01/09/2024 2:54 AM [facility] AST 46(H) 15 - 37 U/L 01/09/2024 2:54 AM [facility] ALT 26 16 - 60 U/L 01/09/2024 2:54 AM [facility] ALKALINE PHOSPHATASE S/P/B 138(H) 50 - 136 U/L 01/09/2024 2:54 AM [facility] ANION GAP 6.9 2 - 10 MMOL/L 01/09/2024 2:54 AM [facility] BUN CREATININE RATIO 19.4 6 - 26 01/09/2024 2:54 AM [facility] A/G RATIO 1.3 1.0 - 2.0 RATIO 01/09/2024 2:54 AM [facility] GFR ESTIMATE 60(L) >90 ML/MIN/1.7 3 M2 01/09/2024 2:54 AM [facility] ORDERLY [facility] Comment: NOTE: eGFR is not calculated for patients <18 years of age or gender unknown. This is an estimated GFR calculation using the new CKD EPI creatinine equation without race and so does not require a correction factor for race. This estimated GFR should not be used for calculating drug doses. 01/09/2024 2:11 AM MENTAL HEALTH ORDERLY [facility] Final Result [facility] [address] [place] [address], * ECG 12 lead (01/09/2024 1:38 AM MENTAL HEALTH ORDERLY) 01/09/2024 1:38 AM MENTAL HEALTH ORDERLY [facility]ative [facility] - 01/09/2024 12:43 PM MENTAL HEALTH ORDERLY ?[place] ? [address] [facility] ? Test Date: ?2024-01-09 Pat Name: ? RICHARD PRINGLE ?Department: ?? 41 ? Room: ? EXAM11 Gender: ? Male ? Skein Washer: ?? [id number] : ?1945 ? Requested By: DINA BAEZ Order Number: [id number] ? Reading : ?? Doron Slade ? Measurements Intervals ?[place] ? Rate: ? 61 ? P: ?84 ND: ? 127 ?QRS: ?60 QRSD: ? 109 ?T: ?36 QT: ? 395 ? QTc: ?398 ? Interpretive Statements SINUS RHYTHM Compared to ECG 07/07/2023 15:33:48 Incomplete right bundle-branch block no longer present T-wave abnormality no longer present Other ischemic changes, not STEMI Preliminary EKG Interpretation by Ketan Uriarte D.O. [facility] Procedure Note Doron Slade MD - 11/19/[address] Test Date: 2024-01-09 Pat Name: RICHARD PRINGLE Department: 41 Room: EXAM11 Gender: Male Skein Washer: [id number] : 1945 Requested By: DINA BAEZ Order Number: [id number] Reading MD: Doron Slade Measurements Intervals [place] Rate: 61 P: 84 ND: 127 QRS: 60 QRSD: 109 T: 36 QT: 395 QTc: 398 Interpretive Statements SINUS RHYTHM Compared to ECG 07/07/2023 15:33:48 Incomplete right bundle-branch block no longer present T-wave abnormality no longer present Other ischemic changes, not STEMI Preliminary EKG Interpretation by Ketan Uriarte D.O. [facility] us [facility] ECG ORDERABLES Final Result [facility] ([facility]) RAD * CT ABD+PEL WO CON (01/09/2024 1:16 AM MENTAL HEALTH ORDERLY) Anatomical Region Laterality Modality Abdomen Computed Tomogra phy 01/09/2024 1:43 AM MENTAL HEALTH ORDERLY Impressions 01/09/2024 2:01 AM MENTAL HEALTH ORDERLY IMPRESSION: 1. ??0.4 cm obstructive calculus in the proximal left ureter just inferior to the UPJ. Concomitant mild hydroureteronephrosis. 2. ??Suggestion of anemia. 3. ??Colonic diverticulosis. 4. ??Unchanged mild splenomegaly. 5. ??Other chronic/nonurgent findings, as above. Referred By: ?? Interpreted By: Yunior Traore MD, 01/09/2024 1:43 AM Narrative 01/09/2024 2:01 AM MENTAL HEALTH ORDERLY [address] [address] INDICATION: Left flank pain COMPARISON: CT of [...] normal limits for degree of distention. Top normal size prostate. Small bilateral fat-containing inguinal hernias without evidence of complication. Incidental note of benign pelvic phleboliths. No pelvic lymphadenopathy or significant free fluid. Chronic degenerative changes of the hips, pubic symphysis, and sacroiliac joints. Chronic multilevel degenerative changes of the spine. Unchanged chronic grade 1 anterolisthesis of L5 on S1 secondary to bilateral L5 pars defects. Visualized body wall exhibits no acute abnormality. Procedure Note uYnior Traore MD - 01/09/2024 [facility] [address] [place], [place] [address] INDICATION: Left flank pain COMPARISON: CT of the pelvis, 07 Jul 2023 TECHNIQUE: CT images of the abdomen and pelvis were obtained. Radiationdose reduction technique utilized. FINDINGS: Evaluation of solid organs is diminished in the absence of IV contrast. Limited visualization of the lower thorax reveals no acute abnormality.Redemonstration of mediastinal and hilar calcifications compatible withantecedent granulomatous disease; treated lymphoma can have thisappearance. Moderate coronary atherosclerosis. Blood pool attenuationcharacteristics suggest anemia. Normal sized liver. No suspicious hepatic lesion by noncontrast technique.Benign, calcified granulomata within the hepatic and splenic parenchyma,sequela of antecedent granulomatous disease. Atherosclerosis of the abdominal and pelvic vasculature. Noretroperitoneal lymphadenopathy. No evidence of bowel obstruction or inflammation. Colonic diverticulosis.Normal appearing appendix. No free gas in the abdomen or pelvis. Nomesenteric lymphadenopathy. Stomach and duodenum within normal limits. Unchanged mild splenomegalymeasuring 13.6 cm. Incidental note of a small splenule. Pancreas is notwell evaluated in the absence of IV contrast; however, no peripancreaticinflammatory change is identified. Incidental note of a periampullarydiverticulum. Adrenal glands within normal limits. No right hydronephrosis or hydroureter. Unchanged left renal cortical calcification measuring 0.8 cm, possiblysecondary to prior ablation/partial nephrectomy. Benign-appearingexophytic renal cystic focus which no follow-up is recommended. Mild lefthydronephrosis and proximal hydroureter. 0.4 cm calculus in the proximalleft ureter, just inferior to the UPJ, the craniocaudal level of thetransverse process of L3. Distal aspects of the left ureter areunremarkable. Urinary bladder within normal limits for degree of distention. Top normalsize prostate. Small bilateral fat-containing inguinal hernias withoutevidence of complication. Incidental note of benign pelvic phleboliths. Nopelvic lymphadenopathy or significant free fluid. Chronic degenerative changes of the hips, pubic symphysis, and sacroiliacjoints. Chronic multilevel degenerative changes of the spine. Unchanged chronic grade 1 anterolisthesis of L5 on S1 secondary tobilateral L5 pars defects. Visualized body wall exhibits no acute abnormality. IMPRESSION: 1. 0.4 cm obstructive calculus in the proximal left ureter just inferiorto the UPJ. Concomitant mild hydroureteronephrosis. 2. Suggestion of anemia. 3. Colonic diverticulosis. 4. Unchanged mild splenomegaly. 5. Other chronic/nonurgent findings, as above. Referred By: Interpreted By: Yunior Traore MD, 01/09/2024 1:43 AM [facility] [address] [place] [address] Final Result documented in this encounter Visit Diagnoses Diagnosis Nephrolithiasis- Primary Calculus of kidney documented in this encounter Administered Medications Inactive Administered Medications - up to 3 most recent administrations Medication Order MAR Action Action Date Dose Rate Site cefdinir (OMNICEF) capsule 300 mg 300 mg, Oral, Once, 1 dose, On Mon01/09/24 at 0530 Given 01/09/2024 5:34 AM MENTAL HEALTH ORDERLY 300 mg HYDROcodone-acetaminophen (NORCO) 5-325 MG tablet 1 tablet 1 tablet, Oral, Once, 1 dose, On Mon01/09/24 at 0530, Maximum dose of acetaminophen is 4000 mg from all sources in 24 hours. Given 01/09/2024 5:34 AM MENTAL HEALTH ORDERLY 1 tablet ketorolac (TORADOL) injection 15 mg 15 mg, Intravenous, Once, 1 dose, On Mon01/09/24 at 0215, For IV administration, give over 15 seconds. Given 01/09/2024 2:34 AM MENTAL HEALTH ORDERLY 15 mg lactated ringers bolus infusion 1,000 mL 1,000 mL, Intravenous, Administer over 60 Minutes, Once, 1 dose, On Mon01/09/24 at 0215 New Bag 01/09/2024 2:34 AM MENTAL HEALTH ORDERLY 1,000 mLs 1000 mL/hr morphine injection 4 mg 4 mg, Intravenous, Once, 1 dose, On Mon01/09/24 at 0200 Given 01/09/2024 2:00 AM MENTAL HEALTH ORDERLY 4 mg ondansetron (ZOFRAN) injection 4 mg 4 mg, Intravenous, Once, 1 dose, On Mon01/09/24 at 0200, IV push over 2-5 minutes. Given 01/09/2024 2:01 AM MENTAL HEALTH ORDERLY 4 mg ondansetron (ZOFRAN-ODT) disintegrating tablet 4 mg 4 mg, Oral, Once, 1 dose, On Mon01/09/24 at 0530 Given 01/09/2024 5:34 AM MENTAL HEALTH ORDERLY 4 mg tamsulosin (FLOMAX) capsule 0.4 mg 0.4 mg, Oral, Once, 1 dose, On Mon01/09/24 at 0215 Given 01/09/2024 2:34 AM MENTAL HEALTH ORDERLY 0.4 mg documented in this encounter Active and Recently Administered Medications Times are shown in MENTAL HEALTH ORDERLY. Scheduled Medication Order 01/07/2024 01/08/2024 01/09/2024 cefdinir (OMNICEF) capsule 300 mg (COMPLETED) 300 mg, Oral, Once, 1 dose, On Mon01/09/24 at 0530 0534 (Given - Provid er: Cori Samano RN) HYDROcodone-acetaminophen (NORCO) 5-325 MG tablet 1 tablet (COMPLETED) 1 tablet, Oral, Once, 1 dose, On Mon01/09/24 at 0530, Maximum dose of acetaminophen is 4000 mg from all sources in 24 hours. 0534 (Given - Provid er: Cori Samano RN) ketorolac (TORADOL) injection 15 mg (COMPLETED) 15 mg, Intravenous, Once, 1 dose, On Mon01/09/24 at 0215, For IV administration, give over 15 seconds. 0234 (Given - Provid er: Cori Samano RN) lactated ringers bolus infusion 1,000 mL (COMPLETED) 1,000 mL, Intravenous, Administer over 60 Minutes, Once, 1 dose, On Mon01/09/24 at 0215 0234 (New Bag - Prov ider: Cori Samano RN)0349 (Infusion Stop Time - Provider: Cori Samano RN) morphine injection 4 mg (COMPLETED) 4 mg, Intravenous, Once, 1 dose, On Mon01/09/24 at 0200 0200 (Given - Provid er: Cori Samano RN) ondansetron (ZOFRAN) injection 4 mg (COMPLETED) 4 mg, Intravenous, Once, 1 dose, On Mon01/09/24 at 0200, IV push over 2-5 minutes. 0201 (Given - Provid er: Cori Samano RN) ondansetron (ZOFRAN-ODT) disintegrating tablet 4 mg (COMPLETED) 4 mg, Oral, Once, 1 dose, On Mon01/09/24 at 0540 05 (Given - Provid er: Cori Samano RN) tamsulosin (FLOMAX) capsule 0.4 mg (COMPLETED) 0.4 mg, Oral, Once, 1 dose, On Mon01/09/24 at 9027 5627 (Given - Provid er: Cori Samano RN) documented in this encounter Additional Health Concerns Assessment Noted Time PHQ-9 Depression Total Score: 1 06/09/19 21 9:12 AM CDT documented as of this encounter Care Teams [employer] Coach Relationship Specialty Start Date End Date Ryan Maloney DO [address] [place] [address] [phone] PCP - General FAMILY PRACTICE 04/20/18 documented as of this encounter
--- OUTSIDE RECORDS SUMMARY | 2024-02-22 10:54 | XMS_ITS | Encounter Summary ---
Author Organization [facility] Address [address] [place] [address]. [place], [place] [id number] [place] [id number] Care Team Providers Care Material Expeditor Name Role Phone Ryan Maloney DO Primary Care Provider + Reason for Visit * Reason Comments ER F/U The patient presents for an ER follow up. The patient was seen for a kidney stone. The patient states he is feeling better, but he is unsure if he has passed it Encounter Details Date Type Department Care Team (Late st Contact Info) Description 01/17/2024 10:00 AM ENERGY MANAGER Office Visit [facility] Family & Internal Medicine [address] [phone] Ryan Maloney DO [address] [place] [id number] ER F/U (The patient presents for an ER follow up. The patient was seen for a kidney stone. The patient states he is feeling better, but he is unsure if he has passed it) Social History Tobacco Use Types Packs/Day Years Used Date Smoking Tobacco: Former Cigarettes 1.5 3 1 03/1964 - 1967 Passive Smoke Exposure: Never Smokeless Tobacco: Never Comments:quit Alcohol Use Standard Drinks/Week Comments No 0 (1 standard drink = 0.6 oz pur e alcohol) [facility] Utilities Answer Date Recorded In the past 12 months has [employer], oil, or water [employer] threatened to shut off services in your [...] in the past 12 m [facility], were you homeless or living in a [place] health care facility (including now)? 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 MANAGER Gender Identity Not on file Sexual Orientation Not on file documented as of this encounter Last Filed Vital Signs Vital Sign Reading Time Taken Comments Blood Pressure 124/66 01/17/2024 10:16 AM ENERGY MANAGER Pulse 67 01/17/2024 10:16 AM ENERGY MANAGER Temperature 36.9 ??C (98.5 ??F) 01/17/2024 10:[address] Respiratory Rate 16 01/17/2024 10:16 AM ENERGY MANAGER Oxygen Saturation 98% 01/17/2024 10:16 AM ENERGY MANAGER Inhaled Oxygen Concentration - - Weight 74.9 kg (165 lb 1.6 oz) 01/17/2024 10:16 AM ENERGY MANAGER Height 170.2 cm (5' 7 ) 01/17/2024 10:16 AM ENERGY MANAGER Body Mass Index 25.86 01/17/2024 10:16 AM ENERGY MANAGER documented in this encounter Functional Status * [...] No 07/07/2023 11:18 PM JOSET Edmund Finley III RN Active documented in this encounter Progress Notes * Ryan Maloney, DO - 01/17/2024 10:00 AM CST Images from the original note were not included. GENERAL OFFICE VISIT Encounter Date: 01/17/2024 Chief Complaint: 78-year-old male presents for ER F/U (The patient presents for an ER follow up. The patient was seen for a kidney stone. The patient states he is feeling better, but he is unsure if he has passed it) HPI: Pt presents for ER/kidney stone follow-up. Pt was seen at ER on 01/09/24. Pt was found to have 4 mmobstructive calculus in the proximal left ureter just inferior to UPJ with concomitant mild hydroureteronephrosis. He was given cefdinir, [place], Toradol, Flomax, and Zofran. He is unsure if he passedor not; he had an episode with blood. His labs were relatively similar to previous. Pt did see Dr. Little for his anemia yesterday. Review of Systems Constitutional: Negative for fever. Genitourinary: See HPI Patient Active Problem List Diagnosis Chronic lymphocytic leukemia (CMS/HCC HHS/HCC) Autoimmune hemolytic anemia (CMS/HCC HHS/HCC) Other chest pain Gastroesophageal reflux disease, esophagitis presence not specified BMI 25.0-25.9,adult Puncture wound SOB (shortness of breath) History of tobacco use Iron overload Laceration of left ring finger Pneumonia Past Medical History: Diagnosis Date Anemia Cataract Chronic lymphocytic leukemia (CMS/HCC HHS/HCC) GERD (gastroesophageal reflux disease) Immune deficiency disorder (CMS/HCC HHS/HCC) Past Surgical History: Procedure Laterality Date CHOLECYSTECTOMY EXCISION BASAL CELL CARCINOMA KNEE ARTHROSCOPY Right knee REMOVAL OF SPERM DUCT(S) TRANSURETHRAL RESECTION OF BLADDER Family History Problem Relation Name Age of Onset Cancer Mother Margert skin Heart Disease Maternal Grandmother Verti Cancer Sister Radha Social History Tobacco Use Smoking status: Former Current packs/day: 0.00 Average packs/day: 1.5 packs/day for 3.0 years (4.5 ttl pk-yrs) Types: Cigarettes Start date: 01/1965 Quit date: 1967 Years since quittin.0 Passive exposure: Never Smokeless tobacco: Never Tobacco comments: quit Vaping Use Vaping status: Never Used Substance Use Topics Alcohol use: No Drug use: No Immunization History Administered Date(s) Administered Flublok (Quadrivalent) 12/05/2018 Fluzone High Dose (IIV, trivalent, 0.5mL) 11/29/2013, 11/25/2014, 12/02/2015, 11/24/2016, 11/29/2017, 12/01/2017, 12/05/2023 Fluzone High Dose - >Age 65 (Prefilled Syringe) 11/29/2013, 11/25/2014, 12/02/2015, 11/24/2016, 11/29/2017, 12/01/2017, 11/12/2019, 11/02/2020, 11/16/2021, 11/18/2022 Influenza (Generic) 12/10/2011, 12/11/2012, 11/24/2017, 12/05/2018 Influenza Adult (Generic) 12/11/2012, 11/29/2013, 11/25/2014, 12/02/2015, 11/24/2016, 11/29/2017, 12/01/2017, 12/08/2018, 11/16/2021 PFIZER COVID-19 (ORIGINAL FORMULATION, PURPLE CAP) mRNA, LNP-S, PF, 30 MCG/0.3 ML DOSE 04/13/2020, 05/04/2020 Pneumococcal (Pneumovax 23) 01/17/2018 Pneumococcal (Prevnar 13) 04/26/2019 Tdap (Boostrix) 06/08/2020 Zoster (Zostavax) 49697 Unt/0.65Ml 12/09/2009 Current Outpatient Medications Medication Sig Dispense Refill B Enmfnzg-G-Rhgct Acid (DIATX OR) Take 1 tablet by [...] BY MOUTH TWICE DAILY 180 tablet 3 Pgepjg-Jzxiw-Bjse Ac-Ca Fructo (MOVE FREE JOINT HEALTH ADVANCE) [...] by mouth daily. 15 mg once daily No current facility-administered medications for this visit. Review of patient's allergies indicates: Allergen Reactions [place] [Hydrocodone-Acetaminophen] Nausea Only Objective: Filed Vitals: 01/17/24 1016 BP: 124/66 Pulse: 67 Resp: 16 Temp: 98.5 ??F (36.9 ??C) TempSrc: Skin SpO2: 98% Weight: 74.9 kg (165 lb 1.6 oz) Height: 1.702 m (5' 7 ) Physical Exam Vitals and nursing note reviewed. HENT: Head: Normocephalic and atraumatic. Right Ear: External ear normal. Left Ear: External ear normal. Eyes: Conjunctiva/sclera: Conjunctivae normal. Cardiovascular: Rate and Rhythm: Normal rate and regular rhythm. Heart sounds: Normal heart sounds. No murmur heard. No friction rub. No gallop. Pulmonary: Effort: Pulmonary effort is normal. No respiratory distress. Breath sounds: Normal breath sounds. No wheezing or rales. Abdominal: Palpations: Abdomen is soft. Tenderness: There is no abdominal tenderness. Neurological: Mental Status: He is alert. Assessment & Plan: Richard was seen today for er f/u. Diagnoses and all orders for this visit: Nephrolithiasis Discussion/Summary: Continue cefdinir and tamsulosin and continue to monitor symptoms. Take meds as needed. Consider repeat imaging if not improve at 1 month radha; no need to refer to urology at this time. Will have pt f/u with regular visits otherwise. Pt v/u. I personally spent a total of 26 minutes on the day of the encounter. This includes kfjk-oy-iagy and ryz-wdut-zg-face time I provided on the day of the encounter & excludes time spent performing separately reportable services. Ryan Maloney DO GY MANAGER documented in this encounter Plan of Treatment Not on file documented as of this encounter Visit Diagnoses Diagnosis Nephrolithiasis- Primary Calculus of kidney documented in this encounter Additional Health Concerns Assessment Noted Time PHQ-9 Depression Total Score: 1 06/09/19 21 9:12 AM CDT documented as of this encounter Care Teams Material Expeditor Relationship Specialty Start Date End Date Ryna Maloney DO [address] [place] [id number] PCP - General FAMILY PRACTICE 04/20/18 documented as of this encounter
--- OUTSIDE RECORDS SUMMARY | 2024-02-22 10:54 | XMS_ITS | Encounter Summary ---
Author Organization [facility] Address [address] [place] [address]. [place], [place] [address] [place] [address] Care Team Providers Care Experiential Therapist Name Role Phone Ryan Maloney DO Primary Care Provider + Jo Mathew RN Unavailable [phone] Reason for Visit * Auth/Cert (Routine) Specialty Diagnoses / Procedures Referred By Ana martin Referred To Contact Diagnoses Kidney stone Flank pain Procedures NONE Tammi Gomez MD 1 [facility] [place] [address] Phone: tel: [phone] fax: Referral ID Status Reason Start Date Expiration Date Visits Re quested Visits Authorized [id number] 1 1 Encounter Details Date Type Department Care Team (Late st Contact Info) Description 02/07/2024 9:43 AM CONTROL CABINET ASSEMBLER Anesthesia Event [facility] [place], [place] [address] Jovi Vega MD [address] [place] [address] [place] [address] Sukhjinder Jones MD [address] [address] Anesthesia Record Procedure Summary Procedure Name Responsible Anesthesiologist Anesthesia Start Time Anesthesia Stop Time CYSTOSCOPY, LEFT RETROGRADE PYELOGRAM, LEFT URETERAL STENT INSERTION (Left: Bladder) Jovi Vega MD 02/07/24 0943 02/07/24 1017 Events Date Time Event Comment 02/07/2024 0943 An Start Patient ID and consent checked and patient reassessed. 0943 An Start Data 0946 Preoxygenation 0947 An Induction The patient was reevaluated immediately before moderate or deep sedation use and before anesthesia induction. 0948 An LMA 0949 Anesthesia Ready 1010 An Emergence 1012 LMA Removed 1013 Face Mask Applied 1013 an stop data 1017 Post Anesthetic Care Handoff I completed my handoff to the receiving nurse during which we: 1. Identified the patient 2. Identified the responsible provider 3. Reviewed the pertinent medical history 4. Discussed the surgical course 5. Reviewed intra-op anesthesia management and issues during anesthesia 6. Set expectations for post-procedure period 7. Allowed opportunity for questions and acknowledgement of understanding. 1017 An Stop 1138 1138 AN Anesthesia Prepped Meds Name Total acetaminophen 10 mg/mL IV solution 1,000 mg lidocaine (PF) (XYLOCAINE) 2% injection 80 mg dexamethasone (DECADRON) injection 8 mg propofol (DIPRIVAN) 200 mg/20 mL injecti on 100 mg ondansetron (ZOFRAN) 4 mg/2 mL injection 4 mg fentaNYL (SUBLIMAZE) 100 mcg/2 mL inject ion 25 mcg lactated ringers infusion 300 mL * Agents Name O2 Air Inspired Sevoflurane Sevoflurane * Blood No blood administrations on file. Lines, Drains, and Airways Type Details Placement Removal Peripheral IV Placement Date: 01/20 09/12; Placement Time: 1936; Placed Outside of This Facility?: No; Size: 20 G; Orientation: Left; Location: Antecubital; Site Prep: Chlorhexidine; Inserted By: LULI Fitzpatrick; Insertion attempts: 2; Ultrasound-guided Placement?: Yes; Patient Tolerance: Tolerated well; Removal Date: 02/08/24; Removal Time: 152; Removal Reason: Patient Discharged 02/06/241936 by Amari Harris RN 02/08/241519 by Shanell Boyer RN Supraglottic Airway Placement Date: 01/20 10/13; Placement Time: 09; Airway Device: LMA; LMA Size: 4; Placed Outside of This Facility?: No; Placed By: JUAN LUIS; Style: i-gel; Insertion Attempts:1; Placement Verified By: Capnography, Chest Rise; Extubation Assessment: Suctioned, Tolerated well, Patient spontaneously breathing, Deep breathes w/equal chest movements, Atraumatic, Able to swallow; Removal Date: 02/07/24; Removal Time: 101; Removal Person: CREDIT AND COLLECTION MANAGER; Removal Reason: End of Case 02/07/24 0948 by Sherine Cameron CRNA 02/07/24 1012 by Sherine Cameron CRNA documented in this encounter Social History Tobacco Use Types Packs/Day Years [...] doctor or pharmacy? Never 02/07/2024 [facility] Utilities Answer Date Recorded In the past 12 months has [facility] [employer], gas, oil, or water [employer] threatened to shut off services in your [...] 02/07/2024 How often do you attend chur ch or baptist services? Never 02/07/2024 Do you belong to any clubs o r organizations such as jain groups, unions, fraternal or athletic groups, or [...] Recorded Patient Health Questionnaire-2 Score 0 06/23/2023 [facility] [place] Occupat ional Health - Occupational Stress [...] any time in the past 12 m [facility], were you homeless or living in a skilled nursing (including now)? No 02/07/2024 Sex and Gender Information Value Date Recorded Sex Assigned at Not on file Legal Sex Male 11:15 AM CONTROL CABINET ASSEMBLER Gender Identity Not on file Sexual Orientation [...] or making decisions? No 02/07/2024 12:00 AM CONTROL CABINET ASSEMBLER Emmy Coker RN Active * Because of a physical, mental, or emotional condition, do you have serious difficulty concentrating, remembering, or making decisions? Answer Entry Date Author Status No 02/07/2024 12:00 AM CONTROL CABINET ASSEMBLER Emmy Coker RN Active documented in this encounter OR Notes * Anesthesia Postprocedure Evaluation - Miky Almonte CRNA - 02/08/2024 11:29 AM CST Anesthesia Post-op Note Richard Pringle Procedure(s): CYSTOSCOPY, LEFT RETROGRADE PYELOGRAM, LEFT URETERAL STENT INSERTION (Left: Bladder) Anesthesia type: general Vitals: 02/08/24 0729 BP: 127/63 Vitals: 02/08/24 0729 Pulse: 85 Vitals: 02/08/24 0729 Resp: 22 Vitals: 02/08/24 0700 Temp: 36.7 ??C Vitals: 02/08/24 07 SpO2: 98% Patient Location: Inpatient Unit Level of Consciousness: awake, alert and oriented Pain Management: adequate analgesia Airway Patency: patent Respiratory Status: acceptable and room air Cardiovascular Status: acceptable Post-Op Nausea: none Postoperative Hydration: euvolemic There were no known notable events for this encounter. ROL CABINET ASSEMBLER * Anesthesia Postprocedure Evaluation - Jovi Vega MD - 02/07/2024 10:37 AM CST Anesthesia Post-op Note Richard Pringle Procedure(s): CYSTOSCOPY, LEFT RETROGRADE PYELOGRAM, LEFT URETERAL STENT INSERTION (Left: Bladder) Anesthesia type: general Vitals: 02/07/24 1030 BP: 120/62 Vitals: 02/07/24 1030 Pulse: 62 Vitals: 02/07/24 1030 Resp: 20 Vitals: 02/07/24 1015 Temp: 36.3 ??C Vitals: 02/07/24 1030 SpO2: 100% Patient Location: PACU Level of Consciousness: awake, oriented and alert Pain Management: adequate analgesia Airway Patency: patent Respiratory Status: acceptable Cardiovascular Status: acceptable, blood pressure returned to baseline and stable Post-Op Nausea: none Postoperative Hydration: euvolemic There were no known notable events for this encounter. ROL CABINET ASSEMBLER * Anesthesia Preprocedure Evaluation - Jovi Vega MD - 02/07/2024 8:28 AM CONTROL CABINET ASSEMBLER Anesthesia ROS/MED History Reviewed: Patient summary , Nursing notes , ECG, Family history anesthesia, Anesthesia history , Medications , Labs , Images/Studies Pre-Anesthetic State: alert, awake and responds appropriately Pulmonary Cardiovascular Neuro/Psych Substance Use GI/Hepatic/Renal (+) GERD, renal disease, (Renal Calculi) Endo/Other (+) blood dyscrasia, (Anemia), cancer, (surgical resection) GENERAL COMMENTS -- [place] [Hydrocodone-Acetaminophen] -- Nausea Only Past Medical History: No date: Anemia No date: Cataract No date: Chronic lymphocytic leukemia ([facility]) No date: GERD (gastroesophageal reflux disease) No date: Immune deficiency disorder ([facility]) No date: Kidney stone Past Surgical History: No date: CHOLECYSTECTOMY No date: EXCISION BASAL CELL CARCINOMA No date: KNEE ARTHROSCOPY Right knee No date: REMOVAL OF SPERM DUCT(S) No date: TRANSURETHRAL RESECTION OF BLADDER NPO Status: Physical Evaluation Airway Mallampati: II TM Distance: >3 FB Neck ROM: normal Dental Pulmonary Pulmonary exam normal Breath sounds clear to auscultation Cardiovascular Rhythm: regular Rate: normal Cardiovascular exam normal Other findings: Blood pressure 125/57, pulse 78, temperature 36.7 ??C, temperature source Oral, resp. rate 20, height 1.702 m (5' 7 ), weight 74.8 kg (164 lb 14.5 oz), SpO2 100%. 02/07/24 0545 WBC 9.62 RBC 2.30* HGB 9.9* HCT 23.9* PLT 204 NA 137 K 5.1 CL 109 CO2 26.6 AGAP 1.4* BUN 18 CR 1.24 BUNCREATININ 14.5 GLU 127* CA 8.5 STOP-Bang Assessment: Anesthesia Plan ASA 3 Intravenous Induction Anesthesia type: general Plan for Airway: LMA and ETT Plan for Post-op Pain Plan: oral pain medication, IV analgesics and as per surgeon Discussed potential risks of General Anesthesia including but not limited to corneal abrasion, visual impairment or visual loss, mouth injury, dental damage, sore throat, hoarseness, esophageal injury, awareness under anesthesia, nerve injury due to positioning, aspiration, pneumonia, stroke, cardiac event, adverse drug reactions and . Informed Consent Anesthetic plan and risks discussed with patient of whom consent was obtained. . ROL CABINET ASSEMBLER documented in this encounter Plan of Treatment Not on file documented as of this encounter Visit Diagnoses Not on filedocumented in this encounter Administered Medications Inactive Administered Medications - up to 3 most recent administrations Medication Order MAR Action Action Date Dose Rate Site acetaminophen (OFIRMEV) infusion Intravenous, Administer over 15 Minutes, PRN, Starting on Mon02/07/24 at 0952, Until Mon02/07/24 at 1017, Anesthesia Intra-Op Given 02/07/2024 9:52 AM CONTROL CABINET ASSEMBLER 1,000 mg dexamethasone (DECADRON) injection Intravenous, PRN, Starting on Mon02/07/24 at 0947, Until Mon02/07/24 at 1017, Anesthesia Intra-Op Given 02/07/2024 9:47 AM CONTROL CABINET ASSEMBLER 8 mg fentaNYL (SUBLIMAZE) injection Intravenous, PRN, Starting on Mon02/07/24 at 1002, Until Mon02/07/24 at 1017, Anesthesia Intra-Op Given 02/07/2024 10:02 AM CONTROL CABINET ASSEMBLER 25 mcg lactated ringers infusion Intravenous, Continuous PRN, Starting on Mon02/07/24 at 0943, Until Mon02/07/24 at 1017, Anesthesia Intra-Op New Bag 02/07/2024 9:43 AM CONTROL CABINET ASSEMBLER lidocaine (PF) (XYLOCAINE) 2 % injection Intravenous, PRN, Starting on Mon02/07/24 at 0947, Until Mon02/07/24 at 1017, Anesthesia Intra-Op Given 02/07/2024 9:47 AM CONTROL CABINET ASSEMBLER 80 mg ondansetron (ZOFRAN) injection Intravenous, PRN, Starting on Mon02/07/24 at 1001, Until Mon02/07/24 at 1017, Anesthesia Intra-Op Given 02/07/2024 10:01 AM CONTROL CABINET ASSEMBLER 4 mg propofol (DIPRIVAN) IV bolus Intravenous, PRN, Starting on Mon02/07/24 at 0947, Until Mon02/07/24 at 1017, Anesthesia Intra-Op Given 02/07/2024 9:47 AM CONTROL CABINET ASSEMBLER 100 mg documented in this encounter Additional Health Concerns Assessment Noted Time PHQ-9 Depression Total Score: 1 06/09/19 21 9:12 AM CDT documented as of this encounter Care Teams Experiential Therapist Relationship Specialty Start Date End Date Ryan Maloney DO [address] [place] [address] PCP - General FAMILY PRACTICE 04/20/18 Jo Mathew, RN [address] [address] Registered Nurse CARE MANAGEMENT 02/07/24 02/08/24 documented as of this encounter
--- OUTSIDE RECORDS SUMMARY | 2024-02-22 10:54 | XMS_ITS | Encounter Summary ---
Author Organization [facility] Address [address] [place] [address]. [place], [place] [address] [place] [address] Care Team Providers Care Farm Contractor Name Role Phone Haider Ryan Beach DO Primary Care Provider + Encounter Details Date Type Department Care Team (Latest Contact Info) Description 01/09/2024 Travel Social History Tobacco Use Types Packs/Day Years Used Date Smoking Tobacco: Former Cigarettes 1.5 3 1 03/1964 - 1967 Passive Smoke Exposure: Never Smokeless Tobacco: Never Comments:quit Alcohol Use Standard Drinks/Week Comments No 0 (1 standard drink = 0.6 oz pur e alcohol) [facility] Utilities Answer Date Recorded In the past 12 months has [facility] [employer], gas, oil, or water [employer] threatened to shut off services in your [...] any time in the past 12 m [facility], were you homeless or living in a correction (including now)? 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
--- OUTSIDE RECORDS SUMMARY | 2024-02-22 10:54 | XMS_ITS | Encounter Summary ---
Author Organization [facility] Address [address] [place] [address]. [place], [place] [address] [place] [address] Care Team Providers Care Environmental Health And Safety Intern Name Role Phone Ryan Little DO Primary Care Provider + Reason for Visit * Reason Onset Date Comments Advice 01/25/2024 Encounter Details Date Type Department Care Team (Late st Contact Info) Description 01/25/2024 Telephone [facility] Family & Internal Medicine [facility] [address] [place] [address] Ryan Little DO [address] [place] [address] Advice Social History Tobacco Use Types Packs/Day Years Used Date Smoking Tobacco: Former Cigarettes 1.5 3 1 03/1964 - 1967 Passive Smoke Exposure: Never Smokeless Tobacco: Never Comments:quit Alcohol Use Standard Drinks/Week Comments No 0 (1 standard drink = 0.6 oz pur e alcohol) [facility] Utilities Answer Date Recorded In the past 12 months has e [employer], gas, oil, or water company threatened to [...] any time in the past 12 m [facility], were you homeless or living in a custodial (including now)? 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 MOTIVE SALESPERSON * Ryan Little DO - 01/25/2024 12:53 PM CSTAddended by: RYAN LITTLE on: 01/25/2024 12:53 PM Modules accepted: Orders MOTIVE SALESPERSON * Ryan Little DO - 01/25/2024 12:50 PM CST May still be viral, but given his 's illness, will send out z-pack to cover. Will also send outtessalon perles. MOTIVE SALESPERSON * Kassy Lovelace - 01/25/2024 11:36 AM CST The patient has the following symptom(s): low grade fever, cough, congestion head and chest Symptom(s) Started: 2x days OTC Medications tried: bria Have you been seen with-in the past 30 days for these same symptoms? No If so, where? N/a Home Covid test: negative 01/24/24 Call back #: [phone] Allergies: Allergies Allergen Reactions [place] [Hydrocodone-Acetaminophen] Nausea Only Pharmacy: [id number] [facility] [address] MOTIVE SALESPERSON documented in this encounter Plan of Treatment Not on file documented as of this encounter Visit Diagnoses Diagnosis Upper respiratory tract infection, unspecified type- Primary documented in this encounter Additional Health Concerns Assessment Noted Time PHQ-9 Depression Total Score: 1 06/09/19 21 9:12 AM CDT documented as of this encounter Care Teams Environmental Health And Safety Intern Relationship Specialty Start Date End Date Ryan Little DO [facility] [place] [address] PCP - General FAMILY PRACTICE 04/20/18 documented as of this encounter
--- OUTSIDE RECORDS SUMMARY | 2024-02-22 10:54 | XMS_ITS | Encounter Summary ---
Author Organization [facility] Address [address] [place] [address]. [place], [place] [address] [place] [address] Care Team Providers Care Nonprofit Director Name Role Phone HaiderBrisaRyanmack Beach DO Primary Care Provider + Encounter Details Date Type Department Care Team (Latest Contact Info) Description 02/06/2024 Travel Social History Tobacco Use Types Packs/Day [...] from your doctor or pharmacy? Never 02/07/2024 [facility] Utilities Answer Date Recorded In the past 12 months has e [employer] gas, oil, or water [employer] threatened to shut off services in your [...] How often do you attend chur or mormon services? Never 02/07/2024 Do you belong to any clubs o r organizations such as episcopal groups, unions, fraternal or athletic groups, or [...] care, and heating? Not hard at all 02/07/2024 PHQ-2 Answer Date Recorded Patient Health Questionnaire-2 Score 0 06/23/2023 [facility]at [facility] Health - Occupational Stress [...] any time in the past 12 m [facility], were you homeless or living in a fpc (including now)? No 02/07/2024 Sex and Gender Information Value Date Recorded Sex Assigned at Not on file Legal Sex Male 11:15 AM DIRECTOR OF REGIONAL SALES Gender Identity Not on file Sexual Orientation [...] Date Author Status No 07/07/2023 11:18 PM CDT Edmund Finley III, RN Active documented in this encounter Plan of Treatment Not on file documented as of this encounter Visit Diagnoses Not on filedocumented in this encounter Additional Health Concerns Assessment Noted Time PHQ-9 Depression Total Score: 1 06/09/19 21 9:12 AM CDT documented as of this encounter Care Teams Nonprofit Director Relationship Specialty Start Date End Date Ryan Maloney DO [address] [place] [address] PCP - General FAMILY PRACTICE 04/20/18 documented as of this encounter
--- OUTSIDE RECORDS SUMMARY | 2024-02-22 10:54 | XMS_ITS | Encounter Summary ---
Author Organization [facility] Address [address] [place] [address]. [place], [place] [id number] [place] [id number] Care Team Providers Care Oncology Registrar Name Role Phone Ryan Maloney DO Primary Care Provider + Jo Mathew RN Unavailable [phone] Reason for Visit * Reason Comments Flank Pain * Auth/Cert (Routine) Specialty Diagnoses / Procedures Referred By Ana martin Referred To Contact Diagnoses Kidney stone Flank pain Procedures NONE Tammi Gomez MD [address] [facility] [address] Phone: tel: [phone] fax: Referral ID Status Reason Start Date Expiration Date Visits Re quested Visits Authorized [id number] 1 1 Encounter Details Date Type Department Care Team (Late st Contact Info) Description 02/07/2024 9:35 AM ELECTRONIC DRAFTER - 02/07/2024 10:19 AM ELECTRONIC DRAFTER Surgery [facility] [address] Derian Kelley MD 3 [facility] [address] [facility] [place] [address] CYSTOSCOPY, LEFT RETROGRADE PYELOGRAM, LEFT URETERAL STENT INSERTION Surgery Details Date/Time Status Location OR Service Patient Class Case Cl ass Case Type Trauma Case? 02/07/2024 9:35 AM Posted [facility] OR OR 1 Urology Inpatient No Panel 1 Procedure LRB Anes Op Region Wound Class Comments CYSTOSCOPY, LEFT RETROGRADE PYELOGRAM, LEFT URETERAL STENT INSERTION Left General Bladder Clean Contaminated Surgeon Surgeon Role Service Panel Derian Kelley MD Primary Urology 1 documented in this encounter Social History Tobacco [...] from your doctor or pharmacy? Never 02/07/2024 [facility] Utilities Answer Date Recorded In the past 12 months has [facility], gas, oil, or water [employer] threatened to shut off services in [...] How often do you attend chur or religion services? Never 02/07/2024 Do you belong to any clubs o r organizations such as mormon groups, unions, fraternal or athletic groups, or [...] Recorded Patient Health Questionnaire-2 Score 0 06/23/2023 [facility] - Occupational Stress Questionnaire Answer Date [...] any time in the past 12 m [facility], were you homeless or living in a intermediate (including now)? No 02/07/2024 Sex and Gender Information Value Date Recorded Sex Assigned at Not on file Legal Sex Male 11:15 AM ELECTRONIC DRAFTER Gender Identity Not on file Sexual Orientation Not on file documented as of this encounter Last Filed Vital Signs Vital Sign Reading Time Taken Comments Blood Pressure 109/57 02/07/2024 10:15 AM ELECTRONIC DRAFTER Pulse 57 02/07/2024 10:15 AM ELECTRONIC DRAFTER Temperature 36.3 ??C (97.3 ??F) 02/07/2024 1 0:15 AM ELECTRONIC DRAFTER Respiratory Rate 11 02/07/2024 10:1 5 AM ELECTRONIC DRAFTER Oxygen Saturation 99% 02/07/2024 10: 15 AM ELECTRONIC DRAFTER Inhaled Oxygen Concentration - - Weight 74.8 kg (164 lb 14.5 oz) 02/07/2024 5:35 AM ELECTRONIC DRAFTER Height 170.2 cm (5' 7 ) 02/06/2024 6:25 PM ELECTRONIC DRAFTER Body Mass Index 25.17 02/06/2024 6:25 PM ELECTRONIC DRAFTER documented in this encounter Functional Status * [...] or making decisions? No 02/07/2024 12:00 AM ELECTRONIC DRAFTER Emmy Coker RN Active * Because of a physical, mental, or emotional condition, do you have serious difficulty concentrating, remembering, or making decisions? Answer Entry Date Author Status No 02/07/2024 12:00 AM Emmy Headley RN Active documented in this encounter Discharge [...] patient is followed by Dr. Little at [facility], patient was seen in our ED on [...] urology Significant Diagnostic Studies: Recent Labs Lab 02/06/24 1827 02/07/24 0545 [...] 26.6 24.9 AGAP 7.3 1.4* 6.1 BUN 18 18 17 CR 1.56* 1.24 1.07 BUNCREATININ 11.5 [...] input(s): PH , PCO2 , PO2 , V2AXPODJJEGU , BICARBWB , BASEDEFICIT , BASEEXCESS in [...] SURG XR RETROGRD UROGRAPHY Result Date: 02/08/2024 [facility] [address] [place], [place] [address] Intraoperative fluoroscopic views of the retrograde urography [...] and evaluated postoperatively. Referred By: Interpreted By: kSip Quiñones MD, 02/08/2024 6:13 AM ECG 12 lead Result Date: 02/07/[address] Test Date: 2024-02-06 Pat Name: RICHARD PRINGLE Department: 41 Room: [facility] Gender: Male Pinion Sorter: : 1945 Requested By: QUAN BONNER Order Number: [id number] Reading MD: Marie Pickering Measurements Intervals Patterson Rate: 81 P: 60 ID: 133 QRS: 23 QRSD: 121 T: 14 QT: 368 QTc: 428 Interpretive Statements SINUS RHYTHM MODERATE INTRAVENTRICULAR CONDUCTION DELAY [110+ ms QRS DURATION] NONSPECIFIC T-WAVE ABNORMALITYCompared to ECG 01/09/2024 01:38:33 Intraventricular conduction delay now present T-wave abnormality now present TRONIC DRAFTER CT ABD+PEL WO CON Result Date: 02/06/2024 [facility] [address] [place], [place] [address] EXAM: CT ABD+PEL WO CON INDICATION: Left [...] By: Merari Kaufman MD, 02/06/2024 7:57 PM Discharge Medications: [...] your nurse or doctor Signed by: Dr. Ketna Uriarte Last time this was given: Ask [...] than 30 minutes Signed: Zabrina Newman MD TRONIC DRAFTER documented in this encounter Discharge Instructions * Attachments The following attachments cannot be sent through Care Everywhere. * Cystoscopy Discharge Instructions (Persian) * Ureteral Stent Discharge Instructions (Persian) documented in this encounter Medications at Time of Discharge B Wkjlhfc-A-Cwwgn Acid (DIATX OR) Take 1 tablet by [...] MOUTH TWICE DAILY 180 tablet 3 08/16/2023 Sjnduk-Yoyha-Oqko Ac-Ca Fructo (MOVE FREE [facility] ADVANCE) Tab Take 1 tablet by mouth [...] 4 HYDROcodone-acetamin ophen (NORCO) 5-325 MG tabletIndications:Ac tahir Pain < 3 Day Supply Take 1 [...] Risk of Polypharmacy Outcome: Adequate for Discharge TRONIC DRAFTER * Andreia Tinoco NP - 02/08/2024 3:12 PM CST Images from the original note were not included. Subjective: NAEO; patient reports feeling OK today. Has been pushing fluids. No nausea. Mild LLQ abd tendernessrelieved with PRN Tylenol. Allergies Allergen Reactions [place] [Hydrocodone-Acetaminophen] Nausea Only Objective: Filed Vitals: 02/08/24 [...] and behavior normal Labs: Recent Labs Lab 02/06/24182602/07/24 0545 02/08/24 0405 [...] 26.6 24.9 AGAP 7.3 1.4* 6.1 BUN 18 18 17 CR 1.56* 1.24 1.07 BUNCREATININ 11.5 [...] to follow up with Dr. Monroy at [facility] (patient preference) for stone treatment and stent management in the coming weeks. Andreia Tinoco APRN TRONIC DRAFTER * Danitza Lua RN - 02/08/2024 2:46 PM CST 02/08/24 1446 Discharge Planning Living Arrangements Spouse/significant other Support Systems Children Type of Residence Private residence Assistance Needed No Patient expects to be discharged to: Home or Self care no new needs Insurance Authorization needed No Does the patient need discharge transport arranged? No IV Infusion at discharge No DME Needed at Discharge No TRONIC DRAFTER * Danitza Lua RN - 02/08/2024 2:46 [...] Home or Self care no new needs TRONIC DRAFTER * Emmy Coker RN - 02/07/2024 9:33 [...] Goal: Reduced Risk of Polypharmacy Outcome: Progressing TRONIC DRAFTER * Danitza Lua RN - 02/07/2024 4:27 PM CST 02/07/24 0846 Interdisciplinary Group Conference Team Members Present Case/Care [...] MD said possible discharge to home tomorrow. TRONIC DRAFTER * Danitza Lua RN - 02/07/2024 4:18 PM CST 02/07/24 8425 Referral Data Source of Information Patient;Other Family Members (son Leo) Patient Information Primary Caregiver Self Current living [...] discharge needs based on recommendationsand treatment course. TRONIC DRAFTER TRONIC DRAFTER * LOPEZ Naqvi - 02/07/2024 3:09 PM [...] Diagnosis Date Anemia Cataract Chronic lymphocytic leukemia ([facility] HHS/HCC) GERD (gastroesophageal reflux disease) Immune deficiency disorder ([facility]) Kidney stone Objective: Oral Phase: [...] relayed to LULI Godinez. Appreciate this consult. TRONIC DRAFTER * Zabrina Newman MD - 02/07/2024 12:52 PM CST Hospitalist Daily Progress Note Subjective Patient had cystoscopy and stent placement today. Doing well this afternoon, still some pain. Cr still elevated, continue IV fluids and monitor, await urine cx results Objective Filed Vitals: 02/07/24 1035 02/07/24 1040 02/07/24 1045 02/07/24 1100 BP: 116/62 125/59 Pulse: 64 63 63 Resp: Temp: 97.3 ??F (36.3 ??C) 97.7 ??F [...] Intravenous Q24H sodium chloride acetaminophen, fentaNYL, fentaNYL, qwwderxso-njhqgnin-rrfeepzfknx, ondansetron, polyethylene glycol Labs, Imaging, Other Studies [...] input(s): PH , PCO2 , PO2 , H1YAUOWAGERR , BICARBWB , BASEDEFICIT , BASEEXCESS in [...] Imaging ECG 12 lead Result Date: 02/07/[address] Test Date: 2024-02-06 Pat Name: RICHARD PRINGLE Department: 41 [place]: [facility] Gender: Male Pinion Sorter: : 1945 Requested By: QUAN BONNER Order Number: [id number] Reading MD: Marie Pickering Measurements Intervals AxisRate: 81 P: 60 ID: 133 QRS: 23 QRSD: 121 T: 14 QT: 368 QTc: 428 Interpretive Statements SINUS RHYTHM MODERATE INTRAVENTRICULAR CONDUCTION DELAY [110+ ms QRS DURATION] NONSPECIFIC T-WAVE ABNORMALITY Compared to ECG 01/09/2024 01:38:33 Intraventricular conduction delay now present T-wave abnormalitynow present TRONIC DRAFTER CT ABD+PEL WO CON Result Date: 02/06/2024 [facility] [address] [place], [place] [address] EXAM: CT ABD+PEL WO CON INDICATION: Left [...] PM ECG 12 lead Result Date: 01/09/[address] Test Date: 2024-01-09 Pat Name: RICHARD PRINGLE Department: 41 Room: EXAM11 Gender: Male Pinion Sorter: [id number] : 1945 Requested By: DINA VALDES Order Number: [id number] Reading MD: Doron Slade Measurements Intervals Patterson Rate: 61 P: 84 ID: 127 QRS: 60 QRSD: 109 T: 36 QT: 395 QTc: 398 Interpretive Statements SINUS RHYTHM Compared to ECG 07/07/2023 15:33:48 Incomplete right bundle-branch block no longer present T-wave abnormality no longer present Other ischemic changes, not STEMI Preliminary EKG Interpretation by Ketan Uriarte D.O. TRONIC DRAFTER CT ABD+PEL WO CON Result Date: 01/09/[address] [address] INDICATION: Left flank pain COMPARISON: CT of [...] encounter of 02/06/24 ECG 12 lead Narrative [address] Test Date: 2024-02-06 Pat Name: RICHARD PRINGLE Department: 41 Room: C03 Gender: Male Pinion Sorter: : 1945 Requested By: QUAN BONNER Order Number: [id number] Reading MD: Marie Pickering Measurements Intervals Patterson Rate: 81 P: 60 ID: 133 QRS: 23 QRSD: 121 T: 14 QT: 368 QTc: 428 Interpretive Statements SINUS RHYTHM MODERATE INTRAVENTRICULAR CONDUCTION DELAY [110+ ms QRS DURATION] NONSPECIFIC T-WAVE ABNORMALITY Compared to ECG 01/09/2024 01:38:33 Intraventricular conduction delay now present T-wave abnormality now present TRONIC DRAFTER Assessment & Plan Kidney stone: Patient admitted to the medical floor CT showed 4 mm calculus in the mid left ureter with proximal hydronephrosis UA positive for UTI Patient started on Rocephin, continue Urology have been consulted Keep patient n.p.o. after midnight Pain control -02/06 cystoscopy today, had stent placed, will have further stone removeal per hs urologist -Cr still elevated, continue IV fluids CLL, cold agglutinin hemolytic anemia, hereditary hemochromatosis: Patient finished Rituxan August 16, 2023 White count 14, hemoglobin 11.3, platelets 178 Compared to white count 21, hemoglobin 7.2, platelets 311 on 07/10/[address] Little CODE STATUS full code Plan of care discussed with patient, nurse, rn case manager. Zabrina Newman MD TRONIC DRAFTER * Janet Godinez RN - 02/07/2024 10:33 [...] Goal: Reduced Risk of Polypharmacy Outcome: Progressing TRONIC DRAFTER documented in this encounter H&P Notes * [...] patient is followed by Dr. Little at [facility], patient was seen in our ED on [...] evaluation and treatment. Allergy Allergies Allergen Reactions [place] [Hydrocodone-Acetaminophen] Nausea Only Medication list (Not in a hospital admission) No current facility-administered medications on file prior to encounter. Current Outpatient Medications on File Prior to Encounter Medication Sig Dispense Refill azithromycin (ZITHROMAX) 250 MG tablet Take 2 tabs daily for one day, then take 1 tab daily 6 tablet 0 B Bmyveab-B-Idoiu Acid (DIATX OR) Take 1 tablet by [...] BY MOUTH TWICE DAILY 180 tablet 3 Qswyck-Qfpdz-Jjzt Ac-Ca Fructo (M[facility] FREE [facility]) [...] Diagnosis Date Anemia Cataract Chronic lymphocytic leukemia ([facility] HHS/HCC) GERD (gastroesophageal reflux disease) Immune deficiency disorder ([facility] HHS/HCC) Kidney stone Past Surgical [...] Types: Cigarettes Start date: 01/1965 Quit date: 1968 Years since quittin.0 Passive exposure: Never Smokeless [...] Insecurity: No Food Insecurity (07/09/2023) Received from [place] [place] [facility] Food Insecurity Social/Environmental Concerns: No concerns Transportation Needs: No Transportation Needs (07/09/2023) Received from [place] [place] [facility] Transportation Needs Social/Environmental Concerns: No concerns Intimate Partner Violence: Not At Risk (07/09/2023) Received from [place] [place] [facility] Feeling Safe Are you in a relationship with someone who hurts you emotionally and/or physically?: No Housing Stability: Low Risk (07/09/2023) Received from [place] [place] [facility] Housing Stability Social/Environmental Concerns: No concerns Family [...] input(s): PH , PCO2 , PO2 , [id number] , BICARBWB , BASEDEFICIT , BASEEXCESS in [...] encounter of 02/06/24 ECG 12 lead Narrative [address] Test Date: 2024-02-06 Pat Name: RICHARD PRINGLE Department: 41 Room: [facility] Gender: Male Pinion Sorter: : 1945 Requested By: QUAN BONNER Order Number: [id number] Reading MD: Measurements Intervals Patterson Rate: 81 P: 60 ID: 133 QRS: 23 QRSD: 121 T: 14 [...] code Tammi Gomez MD 02/06/2024 10:50 PM TRONIC DRAFTER documented in this encounter Consult Notes * [...] or chills he had some mild dysuria. Hawk sees Dr. Monroy for history of bladder cancer. Patient states he has a history of stone disease 40 years ago denies a family history of kidney stones. Has not seen any blood in the urine. Was placed on empiric Rocephin per suspicious urine. Past Medical History: Diagnosis Date Anemia Cataract Chronic lymphocytic leukemia ([facility] HHS/HCC) GERD (gastroesophageal reflux disease) Immune deficiency disorder ([facility] HHS/HCC) Kidney stone Past Surgical [...] 0 min Stress: Stress Concern Present (02/07/2024) [place] Islander [place] of Occupational Health - Occupational Stress Questionnaire Feeling of Stress : To some extent Social Connections: Moderately Isolated (02/07/2024) Social Connection and Isolation Panel [NHANES] Frequency of Communication with Friends and Family: More than three times a week Frequency of Social Gatherings with Friends and Family: Three times a week Attends Anabaptist Services: Never Active Member of Clubs or [...] 02/07/24 0001 PRN MEDICATIONS: acetaminophen, fentaNYL, fentaNYL, etemuchxc-trphmwwq-jjybqnzudsv, ondansetron, polyethylene glycol Allergies: Allergies Allergen Reactions [place] [Hydrocodone-Acetaminophen] Nausea Only Review of Systems: A [...] Procedure Component Value Units Date/Time CULTURE URINE [[id number]] Collected: 02/06/241999 Order Status: Sent Lab Status: In process Updated: 02/06/242336 Specimen: URINE, UNSPECIFIED Microbiology Results (last 14 days) Procedure Component Value Units Date/Time CULTURE URINE [[id number]] Collected: 02/06/241999 Order Status: Sent Lab Status: [...] midnight. -------- Derian Kelley M.D. [facility] HISTORY AND PHYSICAL INTERVAL NOTE: I have reviewed Richardgianna Pringle History & Physical which was performed [...] during recuperation were discussed with the patient/family/personal computer help desk representative. Reasonable alternatives to the patient's proposed procedure/surgery including benefits, risks, and side effects related to the alternatives and the risks related to not receiving the proposed care were also discussed with the patient/family/personal computer help desk representative. Questions were answered and the patient /family/personal computer help desk representative verbalized understanding and desires to proceed. TRONIC DRAFTER documented in this encounter Nursing Notes * Shanell Boyer RN - 02/08/2024 3:26 PM CST Discharge instructions given. He voices understanding Home ambulatory with his family. TRONIC DRAFTER * Sherine Drew RN - 02/07/2024 10:00 AM CST Patient's son updated on procedure progress at 1001. TRONIC DRAFTER documented in this encounter OR Notes * Op Note - Derian Kelley MD - 02/07/2024 10:09 AM CST CYSTOSCOPY, [...] were displayed in the room a 22 Congolese cystoscope was inserted urethra the urethra was grossly normal prostate had trilobar hyperplasia with a small intravesical median lobe he had single orthot opic bilateral ureter orifices effluxing clear yellow urine. The bladder had evidence of cystitis. He had small bladder diverticulum and trabeculated bladder but no distinct papillary tumors were visualized. On block greaser fluoroscopy stone was seen in the proximal ureter on the left. A 6 Congolese open-ended catheter was threaded into the left ureter over a sensor wire this was advanced to the mid ureterwhere retrograde pyelography was performed which outlined the stone and the collecting system he had mild to moderate hydronephrosis and hydroureter to the level of the stone the sensor wire was ableto bypassed the stone up in the upper pole the kidney. A 6 Congolese access catheter was threaded overthis into the [...] double-J ureteral stent Disposition: PACU Condition: stable TRONIC DRAFTER documented in this encounter ED Notes * Adela Neal RN - 02/06/2024 9:36 PM CST Bed: 13 Expected date: Expected time: Means of arrival: Comments: pringle TRONIC DRAFTER * Quan Bonner MD - 02/06/2024 9:14 [...] Review of patient's allergies indicates: Allergen Reactions [place] [Hydrocodone-Acetaminophen] Nausea Only MEDICATIONS: Prior to Admission medications Medication Sig Start Date End Date Taking? Authorizing Provider azithromycin (ZITHROMAX) 250 MG tablet Take 2 tabs daily for one day, then take 1 tab daily 01/25/24 Ryan Maloney, DO B Pqjmafd-Y-Nylky Acid (DIATX OR) Take 1 tablet by [...] MG) BY MOUTH TWICE DAILY 08/16/23 Ryan Maloney, Zursyr-Bnupz-Xvpd Ac-Ca Fructo (MOVE FREE [facility]) [...] mg total) by mouth daily. 01/09/24 Ketan Uriarte DO Zinc Acetate, Oral, (GALZIN OR) Take [...] pain. Physical Exam Filed Vitals: 02/06/24 1825 02/06/242 02/06/24 2145 02/06/24 2200 BP: (!) 155/88 [...] encounter of 02/06/24 ECG 12 lead Narrative [address] Test Date: 2024-02-06 Pat Name: RICHARD PRINGLE Department: 41 Room: [facility] Gender: Male Pinion Sorter: : 1945 Requested By: QUAN BONNER Order Number: [id number] Reading MD: Measurements Intervals Patterson Rate: 81 P: 60 ID: 133 QRS: 23 QRSD: 121 T: 14 [...] ABD+PEL WO CON Final Result by User, [id number] (02/05 2011) [facility] [address] [place], [place] [address] EXAM: CT ABD+PEL WO CON INDICATION: Left [...] pain Disposition: Admit Quan Bonner MD 02/06/24 2638 TRONIC DRAFTER * Kaylyn Guy RN - 02/06/2024 6:25 PM CST Ambulatory to triage with c/o left flank pain today. Pain 6/10. Denies dysuria or hematuria. Hx; kidney stones. TRONIC DRAFTER documented in this encounter Plan of Treatment Not on file documented as of this encounter Procedures Procedure Name Priority Date/Time Associated Diagnosis Comments COMPREHENSIVE METABOLIC PANEL Routine 02/08/2024 4:05 AM ELECTRONIC DRAFTER CBC W/DIFF AUTOMATED Routine 02/08/2024 4:05 AM ELECTRONIC DRAFTER SURG XR RETROGRD UROGRAPHY Routine 02/07/2024 10:13 AM ELECTRONIC DRAFTER URINE BACTERIA CULTURE Routine 10:03 AM ELECTRONIC DRAFTER CYSTOSCOPY STENT INSERTION/REMOVAL/FREY GE 02/07/2024 9:43 AM ELECTRONIC DRAFTER LEFT URETER STONE HEMOGLOBIN, GLYCOSYLATED Routine 02/07/2024 5:45 AM ELECTRONIC DRAFTER PROTHROMBIN TIME, VENOUS Routine 02/07/2024 5:45 AM ELECTRONIC DRAFTER COMPREHENSIVE METABOLIC PANEL Routine 02/07/2024 5:45 AM ELECTRONIC DRAFTER CBC W/DIFF AUTOMATED Routine 02/07/2024 5:45 AM ELECTRONIC DRAFTER TROPONIN, QUANT STAT 02/07/2024 5:45 AM ELECTRONIC DRAFTER THYROID STIM HORMONE TSH Routine 02/07/2024 5:45 AM ELECTRONIC DRAFTER MAGNESIUM Routine 02/07/2024 5:45 AM ELECTRONIC DRAFTER TROPONIN, QUANT STAT 02/06/2024 11:33 PM ELECTRONIC DRAFTER ECG 12-LEAD Routine 02/06/2024 9:19 PM ELECTRONIC DRAFTER HC URINALYSIS AUTO W/O MICRO STAT 02/06/2024 8:00 PM ELECTRONIC DRAFTER URINE BACTERIA CULTURE STAT 8:[address] ABD+PEL WO CON STAT 02/06/2024 7:1 9 PM ELECTRONIC DRAFTER BASIC METABOLIC PANEL STAT 02/06/2024 6:27 PM ELECTRONIC DRAFTER CBC W/DIFF AUTOMATED STAT 02/06/2024 6:27 PM ELECTRONIC DRAFTER documented in this encounter Results * (ABNORMAL) COMPREHENSIVE METABOLIC PANEL (02/08/2024 4:05 AM ELECTRONIC DRAFTER) GLUCOSE 140(H) 70 - 99 MG/DL 02/08/2024 4:42 AM ELECTRONIC DRAFTER [facility] BUN 17 7 - 18 MG/DL 02/08/2024 4:42 AM ELECTRONIC DRAFTER [facility] CREATININE S/P/B 1.07 0.7 - 1.3 MG/DL 02/08/2024 4:42 AM [facility] SODIUM S/P/B 140 136 - 145 MMOL/L 02/08/2024 4:42 AM [facility] POTASSIUM S/P/B 4.1 3.5 - 5.1 MMOL/L 02/08/2024 4:42 AM [facility] CHLORIDE S/P/B 109 97 - 115 MMOL/L 02/08/2024 4:42 AM [facility] CO2 24.9 21 - 32 MMOL/L 02/08/2024 4:42 AM [facility] CALCIUM S/P/B 9.0 8.5 - 10.1 MG/DL 02/08/2024 4:42 AM [facility] BILIRUBIN TOTAL S/P/B 2.6(H) 0.2 - 1.2 MG/DL 02/08/2024 4:42 AM [facility] Comment: THIS ASSAY IS NOT RECOMMENDED FOR PATIENTS UNDERGOING TREATMENT WITH ELTROMBOPAG DUE TO THE POTENTIAL FOR FALSELY ELEVATED RESULTS. TOTAL PROTEIN S/P/B 6.1(L) 6.4 - 8.2 G/DL 02/08/2024 4:42 AM [facility] ALBUMIN S/P/B 3.2(L) 3.4 - 5.0 G/DL 02/08/2024 4:42 AM [facility] AST 55(H) 15 - 37 U/L 02/08/2024 4:42 AM [facility] ALT 83(H) 16 - 60 U/L 02/08/2024 4:42 AM [facility] ALKALINE PHOSPHATASE S/P/B 127 50 - 136 U/L 02/08/2024 4:42 AM [facility] ANION GAP 6.1 2 - 10 MMOL/L 02/08/2024 4:42 AM [facility] BUN CREATININE RATIO 15.9 6 - 26 02/08/2024 4:42 AM [facility] A/G RATIO 1.1 1.0 - 2.0 RATIO 02/08/2024 4:42 AM [facility] GFR ESTIMATE 71(L) >90 ML/MIN/1.7 3 M2 02/08/2024 4:42 AM [facility] Comment: NOTE: eGFR is not calculated for patients <18 years of age or gender unknown. This is an estimated GFR calculation using the new CKD EPI creatinine equation without race and so does not require a correction factor for race. This estimated GFR should not be used for calculating drug doses. 02/08/2024 4:05 AM ELECTRONIC DRAFTER Zabrina Newman MD LABORATORY Final Result [facility] [address] [place] [address], [place] [phone] * (ABNORMAL) CBC W/DIFF AUTOMATED (02/08/2024 4:05 AM ELECTRONIC DRAFTER) WBC 17.25(H) 4.5 - 11.0 x10'3/uL 02/08/2024 5:20 AM [facility] RBC 2.20(L) 4.70 - 6.10 x10'6/uL 02/08/2024 5:20 AM [facility] HGB 10.0(L) 14.0 - 18.0 G/DL 02/08/2024 5:20 AM [facility] HCT 23.5(L) 43.0 - 54.0 % 02/08/2024 5:20 AM [facility] MCV 106.8(H) 80.0 - 94.0 FL 02/08/2024 5:20 AM ELECTRONIC DRAFTER [facility] MCH 45.5(H) 27.0 - 31.0 PG 02/08/2024 5:20 AM [facility] MCHC 42.6(H) 32.0 - 36.0 G/DL 02/08/2024 5:20 AM [facility] [facility] Comment:COLD AGGLUTININ. INC UBATED FOR 30 MIN. RDW 22.4(H) 11.5 - 14.5 % 02/08/2024 5:20 AM ELECTRONIC DRAFTER [facility] PLT 166 130 - 400 x10'3/uL 02/08/2024 5:20 AM [facility] MPV 12.4(H) 9.3 - 12.2 FL 02/08/2024 5:20 AM [facility] DIFFERENTIAL TYPE MANUAL DIFFERENTIAL 02/08/2024 9:30 AM [facility] SEG NEUTROPHILS 90 % 9:30 AM [facility] LYMPHOCYTES 4 % 02/08/2024 9:30 AM [facility] MONOCYTES 6 % 02/08/2024 9:30 AM [facility] ABS. NEUTROPHILS 15.53(H) 1.80 - 7.70 x10'3/uL 02/08/2024 9:30 AM [facility] ABS. LYMPHOCYTES 0.69(L) 1.00 - 4.80 x10'3/uL 02/08/2024 9:30 AM [facility] ABS. MONOCYTES 1.04(H) 0.30 - 0.82 x10'3/uL 02/08/2024 9:30 AM [facility] RBC MORPHOLOGY SLIDE REVIEWED 2023 9:30 AM [facility] ANISO 2+ 02/08/2024 9:30 AM ELECTRONIC DRAFTER [facility] MICRO 1+ 02/08/2024 9:30 AM ELECTRONIC DRAFTER [facility] PLT EST. ADEQUATE 02/08/2024 9:30 AM ELECTRONIC DRAFTER [facility] 02/08/2024 4:05 AM ELECTRONIC DRAFTER Zabrina Newman MD LABORATORY Final Result [facility] [address] [place] [address], [place] [phone] * SURG XR RETROGRD UROGRAPHY (02/07/2024 10:13 AM ELECTRONIC DRAFTER) Anatomical Region Laterality Modality Abdomen Radiographic Leticia ging 02/08/2024 6:13 AM ELECTRONIC DRAFTER Impressions 02/08/2024 6:14 AM ELECTRONIC DRAFTER Impression: Fluoroscopic spot views of left retrograde urography with stent placement obtained for intraoperative control purposes and evaluated postoperatively. Referred By: ?? Interpreted By: Skip Quiñones MD, 02/08/2024 6:13 AM Narrative 02/08/2024 6:14 AM ELECTRONIC DRAFTER [address] [address] Intraoperative fluoroscopic views of the retrograde urography History: Left ureteral stent insertion, pyelogram, cystoscopy Dose: Total Dose Area Product: 3.3552 (Gycm2). Technique: ??Intraoperative fluoroscopy control images obtained. Findings: 2 submitted images demonstrate partial opacification of the left renal collecting system. ??A left ureteral stent is in position. Procedure Note Skip Quiñones MD - 02/08/2024 [address] [place], [place] [address] Intraoperative fluoroscopic views of the retrograde urography [...] * URINE BACTERIA CULTURE (02/07/2024 10:03 AM ELECTRONIC DRAFTER) SPEC DESCRIPTION URINE, CYSTOSCOPIC 02/07/2024 10:04 AM ELECTRONIC DRAFTER [facility] SPECIAL REQUESTS NO SPECIAL REQUEST 02/07/2024 10:04 AM ELECTRONIC DRAFTER [facility] CULTURE RESULT NO GROWTH 2 DAYS 02/09/2024 9:05 AM ELECTRONIC DRAFTER [facility] URINE URINE CYTOLOGIC MATERIAL / Unknown 02/07/2024 10:03 AM ELECTRONIC DRAFTER Derian Kelley MD MICROBIOLOGY - GENERAL OR DERABLES Final Result [facility] [address] [place] [address], [place] [phone] * TROPONIN, QUANT (02/07/2024 5:45 AM ELECTRONIC DRAFTER) TROPONIN I HIGH SENSITIVITY 13 <79 ng/L 02/07/2024 6:33 AM ELECTRONIC DRAFTER [facility] Comment: HIGH DOSES OF BIOTIN, TROPONIN-SPECIFIC AUTOANTIBODIES, AND ANTIBODY THERAPY CONTAINING HAMA MAY INTERFERE WITH THIS TEST RESULT. CORRELATION TO CLINICAL HISTORY AND PRESENTATION RECOMMENDED. 02/07/2024 5:45 AM ELECTRONIC DRAFTER us Tammi Gomez MD LABORATORY Final Resul t Performing Organization Address City/[facility]/ZIP Co de Phone Number [facility] [address] [place] [address], [place] [phone] * THYROID STIM HORMONE, TSH (02/07/2024 5:45 AM ELECTRONIC DRAFTER) TSH 1.920 0.358 - 3.74 uIU/ML 02/07/2024 6:33 AM ELECTRONIC DRAFTER [facility] Comment: HIGH DOSES OF BIOTIN MAY INTERFERE WITH THIS TEST RESULT. CORRELATION TO CLINICAL HISTORY AND PRESENTATION RECOMMENDED. 02/07/2024 5:45 AM ELECTRONIC DRAFTER us Tammi Gomez MD LABORATORY Final Resul t Performing Organization Address [facility] Co de Phone Number [facility] [address] [place] [address], * HEMOGLOBIN, GLYCATED (02/07/2024 5:45 AM ELECTRONIC DRAFTER) HGB A1C 3.8 <5.7 % 02/07/2024 7:47 AM ELECTRONIC DRAFTER [facility] Comment: ADA GUIDELINES 2010 5.7 TO 6.4% INCREASED RISK OF DIABETES > OR = 6.5% CONSISTENT WITH DIABETES ESTIMATED AVG GLUCOSE 62 mg/dL 02/07/2024 7:47 AM ELECTRONIC DRAFTER [facility] 02/07/2024 5:45 AM ELECTRONIC DRAFTER us Tammi Gomez MD LABORATORY Final Resul t Performing Organization Address City/[facility]/ZIP Co de Phone Number [facility] [address] [place] [address], [place] [phone] * MAGNESIUM (02/07/2024 5:45 AM ELECTRONIC DRAFTER) Pathologist [facility] MAGNESIUM 2.2 1.8 - 2.4 MG/DL 02/07/2024 6:33 AM ELECTRONIC DRAFTER [facility] 02/07/2024 5:45 AM ELECTRONIC DRAFTER us Tammi Gomez MD LABORATORY Final Resul t [facility] [address] [place] [address], [place] [phone] * (ABNORMAL) COMPREHENSIVE METABOLIC PANEL (02/07/2024 5:45 AM ELECTRONIC DRAFTER) [facility] GLUCOSE 127(H) 70 - 99 MG/DL 02/07/2024 6:33 AM [facility] BUN 18 7 - 18 MG/DL 02/07/2024 6:33 AM [facility] CREATININE S/P/B 1.24 0.7 - 1.3 MG/DL 02/07/2024 6:33 AM [facility] SODIUM S/P/B 137 136 - 145 MMOL/L 02/07/2024 6:33 AM [facility] POTASSIUM S/P/B 5.1 3.5 - 5.1 MMOL/L 02/07/2024 6:33 AM [facility] CHLORIDE S/P/B 109 97 - 115 MMOL/L 02/07/2024 6:33 AM [facility] CO2 26.6 21 - 32 MMOL/L 02/07/2024 6:33 AM [facility] CALCIUM S/P/B 8.5 8.5 - 10.1 MG/DL 02/07/2024 6:33 AM [facility] BILIRUBIN TOTAL S/P/B 2.7(H) 0.2 - 1.2 MG/DL 02/07/2024 6:33 AM [facility] Comment: THIS ASSAY IS NOT RECOMMENDED FOR PATIENTS UNDERGOING TREATMENT WITH ELTROMBOPAG DUE TO THE POTENTIAL FOR FALSELY ELEVATED RESULTS. TOTAL PROTEIN S/P/B 5.9(L) 6.4 - 8.2 G/DL 02/07/2024 6:33 AM [facility] ALBUMIN S/P/B 3.2(L) 3.4 - 5.0 G/DL 02/07/2024 6:33 AM [facility] AST 147(H) 15 - 37 U/L 02/07/2024 6:33 AM [facility] ALT 123(H) 16 - 60 U/L 02/07/2024 6:33 AM [facility] ALKALINE PHOSPHATASE S/P/B 131 50 - 136 U/L 02/07/2024 6:33 AM [facility] ANION GAP 1.4(L) 2 - 10 MMOL/L 02/07/2024 6:33 AM [facility] BUN CREATININE RATIO 14.5 6 - 26 02/07/2024 6:33 AM [facility] A/G RATIO 1.2 1.0 - 2.0 RATIO 02/07/2024 6:33 AM [facility] GFR ESTIMATE 60(L) >90 ML/MIN/1.7 3 M2 02/07/2024 6:33 AM [facility] Comment: NOTE: eGFR is not calculated for patients <18 years of age or gender unknown. This is an estimated GFR calculation using the new CKD EPI creatinine equation without race and so does not require a correction factor for race. This estimated GFR should not be used for calculating drug doses. 02/07/2024 5:45 AM ELECTRONIC DRAFTER Tammi Gomez MD LABORATORY Final Resul t Performing Organization Address [facility] de Phone Number [facility] [address] [place] [address], * (ABNORMAL) PROTHROMBIN TIME, VENOUS (02/07/2024 5:45 AM ELECTRONIC DRAFTER) PROTIME 13.2(H) 10.2 - 12.9 SEC 02/07/2024 6:16 AM ELECTRONIC DRAFTER [facility] INR 1.2 02/07/2024 6:16 AM ELECTRONIC DRAFTER [facility] Comment: Recommended INR Therapeutic Goals: ??2.0-3.0 Routine Therapy ??2.5-3.5 Mechanical Prosthetic Valves (High Risk) 02/07/2024 5:45 AM ELECTRONIC DRAFTER Tammi Gomez MD LABORATORY Final Resul t Performing Organization Address [facility] de Phone Number [facility] [address] [place] [phone], * (ABNORMAL) CBC W/DIFF AUTOMATED (02/07/2024 5:45 AM ELECTRONIC DRAFTER) WBC 9.62 4.5 - 11.0 x10'3/uL 02/07/2024 7:47 AM ELECTRONIC DRAFTER [facility] RBC 2.30(L) 4.70 - 6.10 x10'6/uL 02/07/2024 7:47 AM ELECTRONIC DRAFTER [facility] HGB 9.9(L) 14.0 - 18.0 G/DL 02/07/2024 7:47 AM ELECTRONIC DRAFTER [facility] HCT 23.9(L) 43.0 - 54.0 % 02/07/2024 7:47 AM ELECTRONIC DRAFTER [facility] MCV 103.9(H) 80.0 - 94.0 FL 02/07/2024 7:47 AM [facility] MCH 43.0(H) 27.0 - 31.0 PG 02/07/2024 7:47 AM [facility] MCHC 41.4(H) 32.0 - 36.0 G/DL 02/07/2024 7:47 AM [facility] Comment:COLD AGGLUTININ. INC UBATED FOR 30 MINUTES. RDW 20.2(H) 11.5 - 14.5 % 02/07/2024 7:47 AM [facility] PLT 204 130 - 400 x10'3/uL 02/07/2024 7:47 AM [facility] MPV 13.0(H) 9.3 - 12.2 FL 02/07/2024 7:47 AM [facility] DIFFERENTIAL TYPE AUTOMATED DIFFERENTIAL 02/07/2024 7:47 AM [facility] NEUTROPHILS % 77.7 % 02/07/2024 7:47 AM [facility] LYMPHOCYTES % 13.4 % 02/07/2024 7:47 AM [facility] MONOCYTES % 6.8 % 02/07/2024 7:47 AM [facility] EOSINOPHILS 0.6 % 02/07/2024 7:47 AM [facility] BASOPHILS 0.5 % 02/07/2024 7:47 AM [facility] IMMATURE GRANS % 1.0 % 02/07/20 7:47 AM [facility] ABS. NEUTROPHILS 7.47 1.80 - 7.70 x10'3/uL 02/07/2024 7:47 AM [facility] ABS. LYMPHOCYTES 1.29 1.00 - 4.80 x10'3/uL 02/07/2024 7:47 AM [facility] ABS. MONOCYTES 0.65 0.30 - 0.82 x10'3/uL 02/07/2024 7:47 AM [facility] ABS. EOSINOPHILS 0.06 0.04 - 0.54 x10'3/uL 02/07/2024 7:47 AM [facility] ABS. BASOPHILS 0.05 0.01 - 0.08 x10'3/uL 02/07/2024 7:47 AM [facility] ABS. IMMATURE GRANULOCYTES 0.10 0.00 - 0.49 x10'3/uL 02/07/2024 7:47 AM [facility] RBC MORPHOLOGY SLIDE REVIEWED 2023 7:47 AM [facility] ANISO 1+ 02/07/2024 7:47 AM [facility] PLT EST. ADEQUATE 02/07/2024 7:47 AM [facility] 02/07/2024 5:45 AM ELECTRONIC DRAFTER us Tammi Gomez MD LABORATORY Final Resul t [facility] [address] [place] [address], * TROPONIN, QUANT (02/06/2024 11:33 PM ELECTRONIC DRAFTER) TROPONIN I HIGH SENSITIVITY 12 <79 ng/L 02/07/2024 12:08 AM [facility] Comment: HIGH DOSES OF BIOTIN, TROPONIN-SPECIFIC AUTOANTIBODIES, AND ANTIBODY THERAPY CONTAINING HAMA MAY INTERFERE WITH THIS TEST RESULT. CORRELATION TO CLINICAL HISTORY AND PRESENTATION RECOMMENDED. 02/06/2024 11:3 3 PM ELECTRONIC DRAFTER us Tammi Gomez MD LABORATORY Final Resul t [facility] [address] [place] [address], * ECG 12 lead (02/06/2024 9:19 PM ELECTRONIC DRAFTER) 02/06/2024 9:19 PM ELECTRONIC DRAFTER Narrative [facility] - 02/07/2024 7:15 AM ELECTRONIC DRAFTER ?[facility] ? [address] [facility] ? Test Date: ?2024-02-06 Pat Name: ? RICHARD PRINGLE ?Department: ?? 41 ? Room: ? C03 Gender: ? Male ? Pinion Sorter: ?? : ?1945 ? Requested By: QUAN BONNER Order Number: [id number] ? Reading : ?? Marie Pickering ? Measurements Intervals ?Patterson ? Rate: ? 81 ? P: ?60 ID: ? [id number] ?QRS: ?23 QRSD: ? 121 ?T: ?14 QT: ? 368 ? QTc: ?428 ? Interpretive Statements SINUS RHYTHM MODERATE INTRAVENTRICULAR CONDUCTION DELAY ??[110+ ms QRS DURATION] NONSPECIFIC T-WAVE ABNORMALITY Compared to ECG 01/09/2024 01:38:33 Intraventricular conduction delay now present T-wave abnormality now present TRONIC DRAFTER Procedure Note Marie Pickering MD - 02/07/2024 [facility] [address] [place] Test Date: 2024-02-06 Pat Name: RICHARD PRINGLE Department: 41 Room: C03 Gender: Male Pinion Sorter: : 1945 Requested By: QUAN BONNER Order Number: [id number] Reading MD: Marie Pickering Measurements Intervals Patterson Rate: 81 P: 60 ID: [id number] QRS: 23 QRSD: 121 T: 14 QT: 368 QTc: 428 Interpretive Statements SINUS RHYTHM MODERATE INTRAVENTRICULAR CONDUCTION DELAY [110+ ms QRS DURATION] NONSPECIFIC T-WAVE ABNORMALITY Compared to ECG 01/09/2024 01:38:33 Intraventricular conduction delay now present T-wave abnormality now present TRONIC DRAFTER Quan Bonner MD ECG ORDERABLES Final Resul t Performing Organization Address City/[facility] Co de Phone Number [facility] * CULTURE URINE (02/06/2024 8:00 PM ELECTRONIC DRAFTER) SPEC DESCRIPTION URINE, UNSPECIFIED 02/06/2024 9:48 PM ELECTRONIC DRAFTER [facility] SPECIAL REQUESTS NO SPECIAL REQUEST 02/06/2024 9:48 PM ELECTRONIC DRAFTER [facility] CULTURE RESULT POLYMICROBIAL GROWTH CONSISTENT WITH NORMAL GENITAL LILY. ?? SUSCEPTIBILITIES NOT ROUTINELY PERFORMED. 02/08/2024 10:34 AM ELECTRONIC DRAFTER [facility] URINE SPECIMEN / Unknown 02/06/2024 8:00 PM ELECTRONIC DRAFTER 02/06/2024 11:37 PM ELECTRONIC DRAFTER Quan Bonner MD MICROBIOLOGY - GENERAL ORDE [facility] Final Result Performing Organization Address City/[facility]/ZIP Co de Phone Number [facility] [address] [place] [address], [place] [phone] * (ABNORMAL) URINALYSIS (02/06/2024 8:00 PM ELECTRONIC DRAFTER) SPECIMEN TYPE URINE CLEAN CATCH 02/06/2024 7:55 PM ELECTRONIC DRAFTER [facility] COLOR (U) YELLOW 02/06/2024 8:35 PM ELECTRONIC DRAFTER [facility] TRANSPARENCY TURBID 02/06/2024 8:35 PM [facility] SPECIFIC GRAVITY (U) 1.018 1.001 - 1.030 02/06/2024 8:35 PM [facility] U PH 7.5 5.0 - 9.0 02/06/2024 8:35 PM [facility] LEUKOCYTES (U) 500(A) NEGATIVE 02/06/2024 8:35 PM [facility] NITRITES NEGATIVE NEGATIVE 02/06/2024 8:35 PM [facility] PROTEIN RANDOM (U) 30(H) <30 MG/DL 02/06/2024 8:35 PM [facility] GLUCOSE (U) NORMAL NORMAL MG/DL 02/06/2024 8:35 PM [facility] KETONES MG/DL (U) TRACE(A) NEGATIVE MG/DL 02/06/2024 8:35 PM [facility] UROBILINOGEN NORMAL NORMAL MG/DL 02/06/2024 8:35 PM [facility] BILIRUBIN (U) NEGATIVE NEGATIVE MG/DL 02/06/2024 8:35 PM [facility] BLOOD (U) 2+(A) NEGATIVE 02/06/2024 8:35 PM [facility] MUCUS RARE /LPF 02/06/2024 8:35 PM [facility] WBC/HPF >100(H) <6 /HPF 02/06/2024 8:35 PM [facility] RBC/HPF 61(H) <6 /HPF 02/06/2024 8:35 PM [facility] SQUAMOUS EPITHELIALS RARE /HPF 02/06/2024 8:35 PM [facility] URINE SPECIMEN OBTAINED BY CLEAN CATCH PROCEDURE / Unknown 02/06/2024 8:00 PM ELECTRONIC DRAFTER us Dina WOODY URINE ORDERABLES Final Result [facility] [address] [place] [address], [place] [phone] * CT ABD+PEL WO CON (02/06/2024 7:19 PM ELECTRONIC DRAFTER) Anatomical Region Laterality Modality Abdomen Computed Tomogra phy 02/06/2024 7:57 PM ELECTRONIC DRAFTER Impressions 02/06/2024 8:10 PM ELECTRONIC DRAFTER IMPRESSION: APPROXIMATE 4 MM CALCULUS IN THE [...] 02/06/2024 7:57 PM Narrative 02/06/2024 8:10 PM ELECTRONIC DRAFTER [facility] [address] [place], [place] [address] EXAM: CT ABD+PEL WO CON INDICATION: Left [...] Procedure Note Dionicio Kaufman MD - 02/06/[address] [address] EXAM: CT ABD+PEL WO CON INDICATION: Left [...] Dionicio Kaufman MD, 02/06/2024 7:57 PM Dina [place] Final Result * (ABNORMAL) BASIC METABOLIC PANEL (02/06/2024 6:27 PM ELECTRONIC DRAFTER) GLUCOSE 109(H) 70 - 99 MG/DL 02/06/2024 8:14 PM ELECTRONIC DRAFTER [facility] BUN 18 7 - 18 MG/DL 02/06/2024 8:14 PM ELECTRONIC DRAFTER [facility] CREATININE S/P/B 1.56(H) 0.7 - 1.3 MG/DL 02/06/2024 8:14 PM ELECTRONIC DRAFTER [facility] SODIUM S/P/B 136 136 - 145 MMOL/L 02/06/2024 8:14 PM [facility] POTASSIUM S/P/B 4.3 3.5 - 5.1 MMOL/L 02/06/2024 8:14 PM [facility] Comment:SLIGHT HEMOLYSIS, RE SULT MAY BE AFFECTED. CHLORIDE S/P/B 103 97 - 115 MMOL/L 02/06/2024 8:14 PM ELECTRONIC DRAFTER [facility] CO2 25.7 21 - 32 MMOL/L 02/06/2024 8:14 PM [facility] CALCIUM S/P/B 9.6 8.5 - 10.1 MG/DL 02/06/2024 8:14 PM [facility] ANION GAP 7.3 2 - 10 MMOL/L 02/06/2024 8:14 PM [facility] BUN CREATININE RATIO 11.5 6 - 26 02/06/2024 8:14 PM [facility] GFR ESTIMATE 45(L) >90 ML/MIN/1.7 3 M2 02/06/2024 8:14 PM [facility] Comment: NOTE: eGFR is not calculated for patients <18 years of age or gender unknown. This is an estimated GFR calculation using the new CKD EPI creatinine equation without race and so does not require a correction factor for race. This estimated GFR should not be used for calculating drug doses. 02/06/2024 6:27 PM ELECTRONIC DRAFTER us Dina WOODY LABORATORY Final Result [facility] [address] [place] [address], * (ABNORMAL) CBC W/DIFF AUTOMATED (02/06/2024 6:27 PM ELECTRONIC DRAFTER) WBC 14.53(H) 4.5 - 11.0 x10'3/uL 02/06/2024 9:11 PM ELECTRONIC DRAFTER [facility] RBC 2.68(L) 4.70 - 6.10 x10'6/uL 02/06/2024 9:11 PM [facility] HGB 11.3(L) 14.0 - 18.0 G/DL 02/06/2024 9:11 PM [facility] HCT 27.5(L) 43.0 - 54.0 % 02/06/2024 9:11 PM [facility] MCV 102.6(H) 80.0 - 94.0 FL 02/06/2024 9:11 PM [facility] MCH 42.2(H) 27.0 - 31.0 PG 02/06/2024 9:11 PM [facility] MCHC 41.1(H) 32.0 - 36.0 G/DL 02/06/2024 9:11 PM [facility] RDW 21.1(H) 11.5 - 14.5 % 02/06/2024 9:11 PM [facility] PLT 178 130 - 400 x10'3/uL 02/06/2024 9:11 PM [facility] MPV 12.8(H) 9.3 - 12.2 FL 02/06/2024 9:11 PM [facility] DIFFERENTIAL TYPE MANUAL DIFFERENTIAL 02/06/2024 9:46 PM [facility] SEG NEUTROPHILS 85 % 9:46 PM [facility] LYMPHOCYTES 8 % 02/06/2024 9:46 PM [facility] MONOCYTES 6 % 02/06/2024 9:46 PM [facility] BASOPHILS 1 % 02/06/2024 9:46 PM ELECTRONIC DRAFTER [facility] ABS. NEUTROPHILS 12.35(H) 1.80 - 7.70 x10'3/uL 02/06/2024 9:46 PM ELECTRONIC DRAFTER [facility] ABS. LYMPHOCYTES 1.16 1.00 - 4.80 x10'3/uL 02/06/2024 9:46 PM ELECTRONIC DRAFTER [facility] ABS. MONOCYTES 0.87(H) 0.30 - 0.82 x10'3/uL 02/06/2024 9:46 PM ELECTRONIC DRAFTER [facility] ABS. BASOPHILS 0.15(H) 0.01 - 0.08 x10'3/uL 02/06/2024 9:46 PM ELECTRONIC DRAFTER [facility] ANISO 1+ 02/06/2024 9:46 PM ELECTRONIC DRAFTER [facility] PLT EST. ADEQUATE 02/06/2024 9:46 PM ELECTRONIC DRAFTER [facility] 02/06/2024 6:27 PM ELECTRONIC DRAFTER Dina WOODY LABORATORY Final Result [facility] [address] [place] [address], [place] [phone] documented in this encounter Visit Diagnoses Not on filedocumented in this encounter Admitting Diagnoses Diagnosis Kidney [...] in 24 hours. Given 02/08/2024 4:13 AM ELECTRONIC DRAFTER 650 mg cefTRIAXone (ROCEPHIN) 1 g in sodium chloride 0.9 % 50 mL IVPB 1 g, Intravenous, at 100 mL/hr, Every 24 hours, 4 doses, First dose (after last modification) on Mon02/08/24 at 1445, Last dose on Mon02/11/24 at 1445 New Bag 02/08/2024 2:43 PM ELECTRONIC DRAFTER 1 g 100 mL/hr fentaNYL (SUBLIMAZE) injection 25 mcg 25 mcg, Intravenous, Every 2 hours PRN, Moderate pain (Scale 4 - 7), Starting on Mon02/06/24 at 2242, Until Mon02/08/24 at 1752, If intravenous (IV) route has been ordered, give over 1-2 minutes. fentaNYL (SUBLIMAZE) injection 50 mcg 50 mcg, Intravenous, Every 2 hours PRN, Severe pain (Scale 8 - 10), Starting on Mon02/06/24 at 2242, Until Mon02/08/24 at 1752, If intravenous (IV) route has been ordered, give over 1-2 minutes. iopamidol (ISOVUE-300) 61 % injection As needed, Starting on Mon02/07/24 at 1003, Until Mon02/07/24 at 1014, Intra-Op Given 02/07/2024 10:03 AM ELECTRONIC DRAFTER 5 mLs Operative Site documented in this encounter Active and Recently Administered Medications Times are shown in ELECTRONIC DRAFTER. Scheduled Medication Order 02/06/2024 02/07/2024 02/08/2024 cefTRIAXone [...] Transfer Orders)1015 (MAR Unhold - Provider: User Epic)2112 (New Bag - Provider: Emmy Coker LULI)2145 (Infusion Stop Time - Provider: Emmy Coker, LULI) cefTRIAXone (ROCEPHIN) 1 g in sodium chloride 0.9 % 50 mL IVPB 1 g, Intravenous, at 100 mL/hr, Every 24 hours, 4 doses, First dose (after last modification) on Kajal 02/08/24 at 1445, Last dose on 02/11/24 at 1445 1443 (New Bag - Provider: Shanell Boyer, RN)1515 (Infusion Stop Time - Provider: Shanell Boyer, RN) famotidine (PF) (PEPCID) injection 20 mg (COMPLETED) 20 mg, Intravenous, Once, 1 dose, On Mon02/07/24 at 0945, On admission IV Push over 2 minutes, Pre-Op 921 (Given - Provider: Marii Diane, LULI) fentaNYL (SUBLIMAZE) injection 50 mcg (COMPLETED) 50 [...] at 0945, IV push over 2-5 minutes. 920 (Given - Provider: Marii Diane, LULI) Continuous Medication Order 02/06/2024 02/07/2024 02/08/2024 lactated [...] (New Bag - Provider: Emmy Coker RN)0943 (MAR Hold - Provider: User Epic - Reason: Unreviewed Transfer Orders)1015 (MAR Unhold - Provider: User Epic) PRN Medication Order 02/06/2024 02/07/2024 02/08/2024 acetaminophen (TYLENOL) tablet 650 mg 650 mg, Oral, Every 4 hours PRN, Mild pain (Scale 1 - 3), Headaches, Fever, Starting on Mon02/06/24 at 2240, Until Kajal 02/08/24 at 1752, Maximum dose of acetaminophen is 4000 mg from all sources in 24 hours. 0943 ([facility] Hold - Provider: User Epic - Reason: Unreviewed Transfer Orders)1015 ([facility] Unhold - Provider: User Epic) 0413 (Given - Provider: Emmy Coker RN) fentaNYL (SUBLIMAZE) injection 25 mcg 25 mcg, Intravenous, Every 2 hours PRN, Moderate pain (Scale 4 - 7), Starting on Mon02/06/24 at 2242, Until Kajal 02/08/24 at 1752, If intravenous (IV) route has been ordered, give over 1-2 minutes. 0943 (MAR Hold - Provider: User Epic - Reason: Unreviewed Transfer Orders)1015 ([facility] Unhold - Provider: User Epic) fentaNYL (SUBLIMAZE) injection 50 mcg 50 mcg, Intravenous, Every 2 hours PRN, Severe pain (Scale 8 - 10), Starting on Mon02/06/24 at 2242, Until Kajal 02/08/24 at 1752, If intravenous (IV) route has been ordered, give over 1-2 minutes. 0943 (MAR Hold - Provider: User Epic - Reason: Unreviewed Transfer Orders)1015 (MAR Unhold - Provider: User Epic) iopamidol (ISOVUE-300) 61 % injection (CANCELED) As needed, Starting on Mon02/07/24 at 1003, Until Mon02/07/24 at 1014, Intra-Op 1003 (Given - Provider: Derian Kelley MD) obtjuzivo-chtxkfyn-gwanyoyq one ([place] MAXIMUM STRENGTH) 3967-9478-533 mg/30mL suspension 10 mL, Oral, Every 4 hours PRN, Indigestion, Heartburn, Starting on Mon02/06/24 at 2240, Until Kajal 02/08/24 at 1752, Shake Well 0943 (MAR Hold - Provider: User Epic - Reason: Unreviewed Transfer Orders)1015 (MAR Unhold - Provider: User Epic) ondansetron (ZOFRAN) injection 4 mg 4 mg, Intravenous, Every 8 hours PRN, Nausea, Vomiting, Starting on Mon02/06/24 at 2240, Until Kajal 02/08/24 at 1752, IV push over 2-5 minutes. 0943 (MAR Hold - Provider: User Epic [...] documented as of this encounter Care Teams Oncology Registrar Relationship Specialty Start Date End Date Ryan Maloney DO [address] [place] [id number] PCP - General FAMILY PRACTICE 04/20/18 Jo Mathew, RN [address] [facility] [address] [place] [id number] Registered Nurse CARE MANAGEMENT 02/07/24 02/08/24 documented as of this encounter
--- OUTSIDE RECORDS SUMMARY | 2024-02-22 10:54 | XMS_ITS | Encounter Summary ---
Author Organization [facility] Address [address] [place] [address]. [place], [place] [address] [place] [address] Care Team Providers Care Director Of Analytics Name Role Phone Ryan Maloney DO Primary Care Provider + Jo Mathew RN Unavailable [phone] Reason for Visit * Reason Comments Lab (SCAN) Encounter Details Date Type Department Care Team (Latest Contact Info) Description 01/08/2024 Scan HEALTH INFO SRVCS Scanned, Doc Med Group Lab (SCAN) Social History Tobacco Use Types Packs/Day Years Used Date Smoking Tobacco: Former Cigarettes 1.5 3 1 03/1964 - 1967 Passive Smoke Exposure: Never Smokeless Tobacco: Never Comments:quit Alcohol Use Standard Drinks/Week Comments No 0 (1 standard drink = 0.6 oz pur e alcohol) [facility] Utilities Answer Date Recorded In the past 12 months has [employer] gas, oil, or water [employer] threatened to shut off services in your [...] any time in the past 12 m [facility], were you homeless or living in a senior care (including now)? 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 ASSISTANT Gender Identity Not on file Sexual Orientation [...] Procedure Name Priority Date/Time Associated Diagnosis Comments OUTSIDE LAB (SCAN ORDER) 01/08/2024 OUTSIDE LAB (SCAN ORDER) 01/08/2024 OUTSIDE LAB (SCAN ORDER) 01/08/2024 documented in this encounter Results * OUTSIDE LAB (SCAN ORDER) (01/08/2024) 01/08/2024 [facility] Scanned SCANNING Final Resu lt * OUTSIDE LAB (SCAN ORDER) (01/08/2024) 01/08/2024 [facility] Scanned SCANNING Final Resu lt * OUTSIDE LAB (SCAN ORDER) (01/08/2024) 01/08/2024 [facility] Scanned SCANNING Final Resu lt documented in this encounter Visit Diagnoses Not on filedocumented in this encounter Additional Health Concerns Assessment Noted Time PHQ-9 Depression Total Score: 1 06/09/19 21 9:12 AM CDT documented as of this encounter Care Teams Director Of Analytics Relationship Specialty Start Date End Date Ryan Maloney DO [address] [place] [address] PCP - General FAMILY PRACTICE 04/20/18 Jo Mathew, RN [address] [address] Registered Nurse CARE MANAGEMENT 07/10/23 01/08/24 documented as of this encounter
--- OUTSIDE RECORDS SUMMARY | 2024-02-22 10:54 | XMS_ITS | Encounter Summary ---
Author Organization [facility] Address [address] [place] [address]. [place], [place] [address] [place] [address] Care Team Providers Care Reverser Name Role Phone Ryan Maloney DO Primary Care Provider + Jo Mathew RN Unavailable [phone] Encounter Details Date Type Department Care Team (Latest Contact Info) Description 01/16/2024 Scan HEALTH INFO SRVCS Scanned, Doc Med Group Social History Tobacco Use Types Packs/Day Years [...] from your doctor or pharmacy? Never 02/07/2024 [facility] Utilities Answer Date [...] How often do you attend chur or gnosticist services? Never 02/07/2024 Do you belong to any clubs o r organizations such as christian groups, unions, fraternal or athletic groups, or [...] Recorded Patient Health Questionnaire-2 Score 0 06/23/2023 [facility] of Occupat ional Health - Occupational Stress [...] time in the past 12 m [facility], were you homeless or living in a group home (including now)? 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 No 02/07/2024 12:00 AM Emmy Headley RN Active * Because of a physical, [...] documented as of this encounter Care Teams Reverser Relationship Specialty Start Date End Date Ryan Maloney DO [address] [place] [address] PCP - General FAMILY PRACTICE 04/20/18 Jo Mathew, LULI [address] [address] Registered Nurse CARE MANAGEMENT 02/07/24 02/08/24 documented as of this encounter
--- OUTSIDE RECORDS SUMMARY | 2024-02-22 10:54 | XMS_ITS | Encounter Summary ---
Author Organization [facility] Address [address] [place] [address]. [place], [place] [address] [place] [address] Care Team Providers Care Dairy Farmer Name Role Phone Ryan Maloney DO Primary Care Provider + Jo Mathew RN Unavailable [phone] Encounter Details Date Type Department Care Team (Latest Contact Info) Description 11/15/2023 Scan HEALTH INFO SRVCS Scanned, Doc Med Group Social History Tobacco Use Types Packs/Day Years Used Date Smoking Tobacco: Former Cigarettes 1.5 3 1 03/1964 - 1967 Passive Smoke Exposure: Never Smokeless Tobacco: Never Comments:quit Alcohol Use Standard Drinks/Week Comments No 0 (1 standard drink = 0.6 oz pur e alcohol) [facility] Utilities Answer Date Recorded In the past 12 months has [facility] [employer], gas, oil, or water [employer] threatened to shut off services in your [...] were you homeless or living in a nursing home (including now)? 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
--- OUTSIDE RECORDS SUMMARY | 2024-02-22 10:55 | XMS_ITS | Encounter Summary ---
Author Organization [facility] Address [address] [place] [address]. [place], [place] [address] [place] [address] Care Team Providers Care Chalker Soles Name Role Phone Ryan Maloney DO Primary Care Provider + Jo Mathew RN Unavailable [phone] Encounter Details Date Type Department Care Team (Latest Contact Info) Description 08/01/2023 Travel Social History Tobacco Use Types Packs/Day Years Used Date Smoking Tobacco: Former Cigarettes 1.5 3 1 03/1964 - 1967 Passive Smoke Exposure: Never Smokeless Tobacco: Never Comments:quit Alcohol Use Standard Drinks/Week Comments No 0 (1 standard drink = 0.6 oz pur e alcohol) [facility] Utilities Answer Date Recorded In the past 12 months has [facility] [employer], gas, oil, or water [employer] threatened to shut off services in your [...] any time in the past 12 m [facility], were you homeless or living in a mcfp (including now)? 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
--- OUTSIDE RECORDS SUMMARY | 2024-02-22 10:55 | XMS_ITS | Encounter Summary ---
Author Organization [facility] Address [address] [place] [address]. [place], [place] [address] [place] [address] Care Team Providers Care Field Staff Manager Name Role Phone Ryan Maloney DO Primary Care Provider + Jo Mathew RN Unavailable [phone] Reason for Visit * Reason Comments Lab (SCAN) Encounter Details Date Type Department Care Team (Latest Contact Info) Description 08/09/2023 Scan HEALTH INFO SRVCS Scanned, Doc Med Group Lab (SCAN) Social History Tobacco Use Types Packs/Day Years Used Date Smoking Tobacco: Former Cigarettes 1.5 3 1 03/1964 - 1967 Passive Smoke Exposure: Never Smokeless Tobacco: Never Comments:quit Alcohol Use Standard Drinks/Week Comments No 0 (1 standard drink = 0.6 oz pur e alcohol) [facility] Utilities Answer Date Recorded In the past 12 months has [employer] gas, oil, or water [employer] threatened to shut off services in your [...] any time in the past 12 m [facility], were you homeless or living in a fdc (including now)? 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 Gender Identity Not on file Sexual Orientation [...] Associated Diagnosis Comments OUTSIDE LAB (SCAN ORDER) 08/09/2023 OUTSIDE LAB (SCAN ORDER) 08/09/2023 OUTSIDE LAB (SCAN ORDER) 08/09/2023 documented in this encounter Results * OUTSIDE LAB (SCAN ORDER) (08/09/2023) 08/09/2023 [facility] Scanned SCANNING Final Resu lt * OUTSIDE LAB (SCAN ORDER) (08/09/2023) 08/09/2023 [employer] [facility] Scanned SCANNING Final Resu lt * OUTSIDE LAB (SCAN ORDER) (08/09/2023) 08/09/2023 [facility] Scanned SCANNING Final Resu lt documented in this encounter Visit Diagnoses Not on filedocumented in this encounter Additional Health Concerns Assessment Noted Time PHQ-9 Depression Total Score: 1 06/09/19 21 9:12 AM CDT documented as of this encounter Care Teams Field Staff Manager Relationship Specialty Start Date End Date Ryan Maloney DO [address] [place] [address] PCP - General FAMILY PRACTICE 04/20/18 Jo Mathew, RN [address] [address] Registered Nurse CARE MANAGEMENT 07/10/23 01/08/24 documented as of this encounter
--- OUTSIDE RECORDS SUMMARY | 2024-02-22 10:55 | XMS_ITS | Encounter Summary ---
Author Organization [facility] Address [address] [place] [address]. [place], [place] [address] [place] [address] Care Team Providers Care Screenplay Writer Name Role Phone Ryan Maloney DO Primary Care Provider + Jo Mathew RN Unavailable [phone] Reason for Visit * Reason Comments Lab (SCAN) Encounter Details Date Type Department Care Team (Latest Contact Info) Description 08/16/2023 Scan HEALTH INFO SRVCS Scanned, Doc Med Group Lab (SCAN) Social History Tobacco Use Types Packs/Day Years Used Date Smoking Tobacco: Former Cigarettes 1.5 3 1 03/1964 - 1967 Passive Smoke Exposure: Never Smokeless Tobacco: Never Comments:quit Alcohol Use Standard Drinks/Week Comments No 0 (1 standard drink = 0.6 oz pur e alcohol) [facility] Utilities Answer Date Recorded In the past 12 months has [employer] gas, oil, or water [employer] threatened to shut off services in your [...] any time in the past 12 m [facility], were you homeless or living in a senior living (including now)? 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 Gender Identity Not on file Sexual Orientation [...] Assessment Author Status No 07/07/2023 11:18 PM Emdund Key III, RN Active * Do you [...] Associated Diagnosis Comments OUTSIDE LAB (SCAN ORDER) 08/16/2023 OUTSIDE LAB (SCAN ORDER) 08/16/2023 documented in this encounter Results * OUTSIDE LAB (SCAN ORDER) (08/16/2023) 08/16/2023 [facility] Scanned SCANNING Final Resu lt * OUTSIDE LAB (SCAN ORDER) (08/16/2023) 08/16/2023 [facility] Scanned SCANNING Final Resu lt documented in this encounter Visit Diagnoses Not on filedocumented in this encounter Additional Health Concerns Assessment Noted Time PHQ-9 Depression Total Score: 1 06/09/19 21 9:12 AM CDT documented as of this encounter Care Teams Screenplay Writer Relationship Specialty Start Date End Date Ryan Maloney DO [facility] [place] [address] PCP - General FAMILY PRACTICE 04/20/18 Jo Mathew, RN 4941 [facility] [address] [place] [address] Registered Nurse CARE MANAGEMENT 07/10/23 01/08/24 documented as of this encounter
--- OUTSIDE RECORDS SUMMARY | 2024-02-22 10:55 | XMS_ITS | Encounter Summary ---
Author Organization [facility] Address [address] [place] [address]. [place], [place] [address] [place] [address] Care Team Providers Care Superintendent Plant Name Role Phone Ryan Maloney DO Primary Care Provider + Jo Mathew RN Unavailable [phone] Encounter Details Date Type Department Care Team (Latest Contact Info) Description 10/10/2023 Scan HEALTH INFO SRVCS Scanned, Doc Med Group Social History Tobacco Use Types Packs/Day Years Used Date Smoking Tobacco: Former Cigarettes 1.5 3 1 03/1964 - 1967 Passive Smoke Exposure: Never Smokeless Tobacco: Never Comments:quit Alcohol Use Standard Drinks/Week Comments No 0 (1 standard drink = 0.6 oz pur e alcohol) [facility] Utilities Answer Date Recorded In the past 12 months has [facility] [employer], gas, oil, or water [employer] threatened to shut off services in your [...] any time in the past 12 m [facility], were you homeless or living in a intermediate (including now)? 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
--- OUTSIDE RECORDS SUMMARY | 2024-02-22 10:55 | XMS_ITS | Encounter Summary ---
Author Organization [facility] Address [address] [place] [address]. [place], [place] [address] [place] [address] Care Team Providers Care Staff Midwife Name Role Phone Ryan Maloney DO Primary Care Provider + Jo Mathew RN Unavailable [phone] Reason for Visit * Reason Comments Lab (SCAN) Encounter Details Date Type Department Care Team (Latest Contact Info) Description 10/06/2023 Scan HEALTH INFO SRVCS Scanned, Doc Med Group Lab (SCAN) Social History Tobacco Use Types Packs/Day Years Used Date Smoking Tobacco: Former Cigarettes 1.5 3 1 03/1964 - 1967 Passive Smoke Exposure: Never Smokeless Tobacco: Never Comments:quit Alcohol Use Standard Drinks/Week Comments No 0 (1 standard drink = 0.6 oz pur e alcohol) [facility] Utilities Answer Date Recorded In the past 12 months has [employer] gas, oil, or water [employer] threatened to shut off services in your [...] any time in the past 12 m [facility], were you homeless or living in a mcc (including now)? 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 Gender Identity Not on file Sexual Orientation [...] Associated Diagnosis Comments OUTSIDE LAB (SCAN ORDER) 10/06/2023 OUTSIDE LAB (SCAN ORDER) 10/06/2023 documented in this encounter Results * OUTSIDE LAB (SCAN ORDER) (10/06/2023) 10/06/2023 [facility] Scanned SCANNING Final Resu lt * OUTSIDE LAB (SCAN ORDER) (10/06/2023) 10/06/2023 [facility] [facility] Scanned SCANNING Final Resu lt documented in this encounter Visit Diagnoses Not on filedocumented in this encounter Additional Health Concerns Assessment Noted Time PHQ-9 Depression Total Score: 1 06/09/19 21 9:12 AM CDT documented as of this encounter Care Teams Staff Midwife Relationship Specialty Start Date End Date Ryan Maloney DO [facility] [place] [address] PCP - General FAMILY PRACTICE 04/20/18 Jo Mathew, RN 4941 [facility] [address] [place] [address] Registered Nurse CARE MANAGEMENT 07/10/23 01/08/24 documented as of this encounter
--- OUTSIDE RECORDS SUMMARY | 2024-02-22 10:55 | XMS_ITS | Encounter Summary ---
Author Organization [facility] Address [address] [place] [address]. [place], [place] [address] [place] [address] Care Team Providers Care Train Director Name Role Phone Ryan Maloney DO Primary Care Provider + Jo Mathew RN Unavailable [phone] Reason for Visit * Reason Comments Lab (SCAN) Encounter Details Date Type Department Care Team (Latest Contact Info) Description 08/02/2023 Scan HEALTH INFO SRVCS Scanned, Doc Med Group Lab (SCAN) Social History Tobacco Use Types Packs/Day Years Used Date Smoking Tobacco: Former Cigarettes 1.5 3 1 03/1964 - 1967 Passive Smoke Exposure: Never Smokeless Tobacco: Never Comments:quit Alcohol Use Standard Drinks/Week Comments No 0 (1 standard drink = 0.6 oz pur e alcohol) [facility] Utilities Answer Date Recorded In the past 12 months has [employer] gas, oil, or water [employer] threatened to shut off services in your [...] any time in the past 12 m [facility], were you homeless or living in a chcf (including now)? 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 Gender Identity Not on file Sexual Orientation [...] Associated Diagnosis Comments OUTSIDE LAB (SCAN ORDER) 08/02/2023 OUTSIDE LAB (SCAN ORDER) 08/02/2023 documented in this encounter Results * OUTSIDE LAB (SCAN ORDER) (08/02/2023) 08/02/2023 [employer] Scanned SCANNING Final Resu lt * OUTSIDE LAB (SCAN ORDER) (08/02/2023) 08/02/2023 [employer] Scanned SCANNING Final Resu lt documented in this encounter Visit Diagnoses Not on filedocumented in this encounter Additional Health Concerns Assessment Noted Time PHQ-9 Depression Total Score: 1 06/09/19 21 9:12 AM CDT documented as of this encounter Care Teams Train Director Relationship Specialty Start Date End Date Ryan Maloney DO [facility] [place] [address] PCP - General FAMILY PRACTICE 04/20/18 Jo Mathew, RN 4941 [facility] [address] [place] [address] Registered Nurse CARE MANAGEMENT 07/10/23 01/08/24 documented as of this encounter
--- OUTSIDE RECORDS SUMMARY | 2024-02-22 10:55 | XMS_ITS | Encounter Summary ---
Author Organization [facility] Address [address] [place] [address]. [place], [place] [address] [place] [address] Care Team Providers Care Project Control Officer Name Role Phone Ryan Maolney DO Primary Care Provider + Jo Mathew RN Unavailable [phone] Reason for Visit * Reason Comments Lab (SCAN) Encounter Details Date Type Department Care Team (Latest Contact Info) Description 07/26/2023 Scan HEALTH INFO SRVCS Scanned, Doc Med Group Lab (SCAN) Social History Tobacco Use Types Packs/Day Years Used Date Smoking Tobacco: Former Cigarettes 1.5 3 1 03/1964 - 1967 Passive Smoke Exposure: Never Smokeless Tobacco: Never Comments:quit Alcohol Use Standard Drinks/Week Comments No 0 (1 standard drink = 0.6 oz pur e alcohol) [facility] Utilities Answer Date Recorded In the past 12 months has [employer] gas, oil, or water [employer] threatened to shut off services in your [...] any time in the past 12 m [facility], were you homeless or living in a prison (including now)? 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 Gender Identity Not on file Sexual Orientation [...] Associated Diagnosis Comments OUTSIDE LAB (SCAN ORDER) 07/26/2023 OUTSIDE LAB (SCAN ORDER) 07/26/2023 documented in this encounter Results * OUTSIDE LAB (SCAN ORDER) (07/26/2023) 07/26/2023 [employer] [facility] Scanned SCANNING Final Resu lt * OUTSIDE LAB (SCAN ORDER) (07/26/2023) 07/26/2023 [employer] [facility] Scanned SCANNING Final Resu lt documented in this encounter Visit Diagnoses Not on filedocumented in this encounter Additional Health Concerns Assessment Noted Time PHQ-9 Depression Total Score: 1 06/09/19 21 9:12 AM CDT documented as of this encounter Care Teams Project Control Officer Relationship Specialty Start Date End Date Ryan Maloney DO [facility] [place] [address] PCP - General FAMILY PRACTICE 04/20/18 Jo Mathew, RN 4941 [facility] [address] [place] [address] Registered Nurse CARE MANAGEMENT 07/10/23 01/08/24 documented as of this encounter
--- OUTSIDE RECORDS SUMMARY | 2024-02-22 10:55 | XMS_ITS | Encounter Summary ---
Author Organization [facility] Address [address] [place] [address]. [place], [place] [id number] [place] [address] Care Team Providers Care Shear Setter Name Role Phone Ryan Maloney DO Primary Care Provider + Jo Mathew RN Unavailable [phone] Encounter Details Date Type Department Care Team (Late st Contact Info) Description 08/01/2023 9:40 AM CDT Laboratory Only [facility] Family & Internal Medicine [address] [id number] [place] [address] yRan Maloney DO [address] [place], [place] [id number] Social History Tobacco Use Types Packs/Day Years Used Date Smoking Tobacco: Former Cigarettes 1.5 3 1 03/1964 - 1967 Passive Smoke Exposure: Never Smokeless Tobacco: Never Comments:quit Alcohol Use Standard Drinks/Week Comments No 0 (1 standard drink = 0.6 oz pur e alcohol) [facility] Utilities Answer Date Recorded In the past 12 months has e [employer], gas, oil, or water [employer] threatened to shut off services in your [...] any time in the past 12 m [facility], were you homeless or living in a alf (including now)? 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 Gender Identity Not on file Sexual Orientation [...] Procedure Name Priority Date/Time Associated Diagnosis Comments COLLECTION VENOUS BLOOD VENIPUNCTURE Routine 08/01/2023 9:57 AM CDT Autoimmune hemolytic anemia ([facility]) Chronic lymphocytic leukemia ([facility]) Screening for lipid disorders Screening for prostate cancer Screening for endocrine, metabolic and immunity disorder Annual physical exam 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[facility]) BMI 26.0-26.9,adult Other chest pain TSH W/REFLEX Routine 08/01/2023 9:56 AM CDT Autoimmune hemolytic anemia ([facility]) Chronic lymphocytic leukemia ([facility]) Screening for lipid disorders Screening for prostate cancer Screening for endocrine, metabolic and immunity disorder Annual physical exam 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[facility]) PROSTATE SPECIFIC ANTIGEN,SCREENING Routine 08/01/2023 9:56 AM CDT Autoimmune hemolytic anemia ([facility] HHS/HCC) Chronic lymphocytic leukemia ([facility] HHS/HCC) Screening for lipid disorders Screening for prostate cancer Screening for endocrine, metabolic and immunity disorder Annual physical exam 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) LIPID PANEL Routine 08/01/2023 9:56 AM CDT Autoimmune hemolytic anemia ([facility] HHS/HCC) Chronic lymphocytic leukemia ([facility] HHS/HCC) Screening for lipid disorders Screening for prostate cancer Screening for endocrine, metabolic and immunity disorder Annual physical exam 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) BMI 26.0-26.9,adult Other chest pain documented in this encounter Results * TSH W/REFLEX (08/01/2023 9:56 AM CDT) TSH 1.197 0.358 - 3.740 uIU/ML 08/01/2023 3:12 PM CDT [facility] 08/01/2023 9:56 AM CDT Ryan Maloney DO LABORATORY Final Re sult [facility] [address] [place] [address], * LIPID PANEL (08/01/2023 9:56 AM CDT) CHOLESTEROL 124 <200 MG/DL 08/01/2023 3:12 PM CDT [facility] TRIGLYCERIDES 100 <150 MG/DL 08/01/2023 3:12 PM CDT [facility] HDL 43 >40 MG/DL 08/01/2023 3:12 PM CDT [facility] LDL-C 61 <100 MG/DL 08/01/2023 3:12 PM CDT [facility] VLDL CALCULATION 20 5 - 28 MG/DL 08/01/2023 3:12 PM CDT [facility] CHOL/HDL RATIO 2.9 0.0 - 4.0 08/01/2023 3:12 PM CDT [facility] LDL/HDL 1.4 0.41 - 2.13 08/01/2023 3:12 PM CDT [facility] NON HDL CHOLESTEROL 81 <140 MG/DL 08/01/2023 3:12 PM CDT [facility] 08/01/2023 9:56 AM CDT Ryan Maloney DO LABORATORY Final Re sult Performing Organization Address [facility] Co de Phone Number [facility] [address] [place] [address], [place] [phone] * PROSTATE SPECIFIC ANTIGEN,SCREENING (08/01/2023 9:56 AM CDT) PSA 1.75 <4.00 NG/ML 08/01/2023 3:09 PM CDT [facility] Comment: ASSAY PERFORMED BY [employer] USING SIEMENS DIMENSION REAGENT. PATIENT RESULTS DETERMINED BY ASSAYS FROM DIFFERENT MANUFACTURERS AND/OR BY DIFFERENT METHODS MAY NOT BE COMPARABLE. 08/01/2023 9:56 AM CDT Ryan Maloney DO LABORATORY Final Re sult [facility] [address] [place] [address], [place] [phone] documented in this encounter Visit Diagnoses Diagnosis Autoimmune hemolytic anemia (CMS/HCC HHS/HCC) Autoimmune hemolytic anemias Chronic lymphocytic leukemia (CMS/HCC HHS/HCC) Chronic lymphoid leukemia, without mention of having achieved remission Screening for lipid disorders Screening for prostate cancer Special screening for malignant neoplasm of prostate Screening for endocrine, metabolic and immunity disorder Annual physical exam Routine general medical examination at a [facility] care facility 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 [facility]) Autoimmune hemolytic anemias BMI 26.0-26.9,adult Body Mass Index 26.0-26.9, adult Other chest pain documented in this encounter Additional Health Concerns Assessment Noted Time PHQ-9 Depression Total Score: 1 06/09/19 21 9:12 AM CDT documented as of this encounter Care Teams Shear Setter Relationship Specialty Start Date End Date Ryan Maloney DO [address] [place] [address] PCP - General FAMILY PRACTICE 04/20/18 Jo Mathew, RN [address] [facility] [address] [place] [address] Registered Nurse CARE MANAGEMENT 07/10/23 01/08/24 documented as of this encounter
--- OUTSIDE RECORDS SUMMARY | 2024-02-22 10:55 | XMS_ITS | Encounter Summary ---
Author Organization [facility] Address [address] [place] [address]. [place], [place] [id number] [place] [address] Care Team Providers Care Business Dean Name Role Phone Ryan Maloney DO Primary Care Provider + Jo Mathew RN Unavailable [phone] Reason for Visit * Reason Comments Lab (SCAN) Encounter Details Date Type Department Care Team (Latest Contact Info) Description 08/30/2023 Scan HEALTH INFO SRVCS Scanned, Doc Med Group Lab (SCAN) Social History Tobacco Use Types Packs/Day Years Used Date Smoking Tobacco: Former Cigarettes 1.5 3 1 03/1964 - 1967 Passive Smoke Exposure: Never Smokeless Tobacco: Never Comments:quit Alcohol Use Standard Drinks/Week Comments No 0 (1 standard drink = 0.6 oz pur e alcohol) [facility] Utilities Answer Date Recorded In the past 12 months has [employer] gas, oil, or water [employer] threatened to shut off services in your [...] time in the past 12 m [facility], were you homeless or living in a care home (including now)? 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 Gender Identity Not on file Sexual Orientation [...] Associated Diagnosis Comments OUTSIDE LAB (SCAN ORDER) 08/30/2023 OUTSIDE LAB (SCAN ORDER) 08/30/2023 documented in this encounter Results * OUTSIDE LAB (SCAN ORDER) (08/30/2023) 08/30/2023 [employer] [facility] Scanned SCANNING Final Resu lt * OUTSIDE LAB (SCAN ORDER) (08/30/2023) 08/30/2023 [employer] [facility] Scanned SCANNING Final Resu lt documented in this encounter Visit Diagnoses Not on filedocumented in this encounter Additional Health Concerns Assessment Noted Time PHQ-9 Depression Total Score: 1 06/09/19 21 9:12 AM CDT documented as of this encounter Care Teams Business Dean Relationship Specialty Start Date End Date Ryan Maloney DO [facility] [place] [address] PCP - General FAMILY PRACTICE 04/20/18 Jo Mathew, RN [address] [facility] [address] [place] [address] Registered Nurse CARE MANAGEMENT 07/10/23 01/08/24 documented as of this encounter
--- OUTSIDE RECORDS SUMMARY | 2024-02-22 10:55 | XMS_ITS | Encounter Summary ---
Author Organization [facility] Address [address] [place] [address]. [place], [place] [address] [place] [address] Care Team Providers Care Press Machine Feeder Name Role Phone Ryan Maloney DO Primary Care Provider + Jo Mathew RN Unavailable [phone] Encounter Details Date Type Department Care Team (Latest Contact Info) Description 08/31/2023 Scan HEALTH INFO SRVCS Scanned, Doc Med Group Social History Tobacco Use Types Packs/Day Years Used Date Smoking Tobacco: Former Cigarettes 1.5 3 1 03/1964 - 1967 Passive Smoke Exposure: Never Smokeless Tobacco: Never Comments:quit Alcohol Use Standard Drinks/Week Comments No 0 (1 standard drink = 0.6 oz pur e alcohol) [facility] Utilities Answer Date Recorded In the past 12 months has [facility] [employer], gas, oil, or water [employer] threatened to shut off services in your [...] any time in the past 12 m [facility], were you homeless or living in a alf (including now)? 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
--- OUTSIDE RECORDS SUMMARY | 2024-02-22 10:58 | XMS_ITS | Encounter Summary ---
Author Organization [facility] Address [address] [place] [address]. 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 Role Phone Ryan Maloney DO Primary Care Provider + Reason for Referral * Imaging (Urgent) - Pending Review Specialty Diagnoses / Procedures Referred By Contac t Referred To Contact RADIOLOGY Procedures CT CHEST+ABD+PEL W CON CT ABD+PEL W CON Rodríguez Gaines MD [address] [place] [id number] Phone: tel: fax: Referral ID Status Reason Start Date Expiration Date V isits Requested Visits Authorized [id number] Pending Review 07/07/2023 07/06/2024 1 1 Reason for Visit * Reason Comments Near Syncope * Auth/Cert (Routine) Specialty Diagnoses / Procedures Referred By Contac t Referred To Contact Diagnoses Bilateral pneumonia Near syncope Pneumonia Jayshree Bal MD [address] [place], [place] [address] Phone: tel: [phone] fax: Referral ID Status Reason Start Date Expiration Date Visits Re quested Visits Authorized [id number] 1 1 Encounter Details Date Type Department Care Team ([facility] st Contact Info) Description 07/07/2023 3:14 PM CDT - 07/09/2023 5:40 PM CDT Hospital Encounter [facility] Med/Surg [address] [place] [address] Rodríguez Gaines MD [address] [place], [place] [address] Channing Adames MD [address] [place] [address] Bharath Moody MD [place], [place] [id number] [phone] (Work) Magno Hollins APRN [place], [place] [address] Jayshree Bal MD [address] [place], [place] [id number] [phone] (Work) Near Syncope Discharge Disposition: Transfer to Acute Care Hospital Social History Tobacco Use Types Packs/Day Years Used Date Smoking Tobacco: Former Cigarettes 1.5 3 1 03/1964 - 1967 Passive Smoke Exposure: Never Smokeless Tobacco: Never Comments:quit Alcohol Use Standard Drinks/Week Comments No 0 (1 standard drink = 0.6 oz pur e alcohol) [facility] Utilities Answer Date Recorded In the past 12 months has [employer], oil, or water [employer] threatened to shut off services in your [...] any time in the past 12 [facility], were you homeless or living in a fdc (including now)? 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 Gender Identity Not on file Sexual Orientation Not on file documented as of this encounter Last Filed Vital Signs Vital Sign Reading Time Taken Comments Blood Pressure 120/47 07/09/2023 3:09 PM CDT Pulse 71 07/09/2023 3:09 PM CDT Temperature 36.9 ??C (98.4 ??F) 07/09/2023 3:09 PM CD T Respiratory Rate 20 07/09/2023 3:09 PM CDT Oxygen Saturation 97% 07/09/2023 3:09 PM CDT Inhaled Oxygen Concentration - - Weight 78.6 kg (173 lb 4.5 oz) 07/09/2023 3:48 A M CDT Height 172.7 cm (5' 8 ) 07/07/2023 3:16 PM CDT Body Mass Index 26.35 07/07/2023 3:16 PM CDT documented in this encounter Functional Status * Question Answer Date of Assessment Author Status Do you have serious difficulty walking or climbing stairs? No 07/07/2023 11:18 PM CDT Carine Finley III, RN Active * Question Answer Date of Assessment Author Status Do you have difficulty dressing or bathing? No 07/07/2023 11:18 PM CDT Rissa Finley III, RN Active Because of a physical, mental, or emotional condition, do you have difficulty doing errands alone such as visiting a doctor's office or shopping? No 07/07/2023 11:18 PM CDT Carine Finley III, RN Active * Are you deaf or do you [...] Author Status No 07/07/2023 11:18 PM CDEdmund Matais III, RN Active documented as of this encounter Mental Status * Question Answer Entry Date Author Status Because of a physical, mental, or emotional condition, do you have serious difficulty concentrating, remembering, or making decisions? No 07/07/2023 11:18 PM CDT Edmund Finley III, RN Active * Because of a physical, mental, or emotional condition, do you have serious difficulty concentrating, remembering, or making decisions? Answer Entry Date Author Status No 07/07/2023 11:18 PM CDT Edmund Finley III, RN Active documented in this encounter Discharge Summaries * Magno Hollins APRN - 07/09/2023 2:53 PM CDT Hospitalist Discharge Summary Patient ID: Richard Pringle. male. 1945. Admit date: 07/07/2023 3:14 PM Discharge date and time: 07/09/23 Admitting Provider: Jayshree Bal MD Attending Provider: Magno Hollins APRN Primary Care Provider: Ryan Maloney DO [facility] Diagnosis: Pneumonia, meta pneumovirus Anemia Acute hypoxic respiratory failure Indication for Admission: Chief Complaint Patient presents with Near Syncope Hospital Course: Per H&P, Richard Pringle is a 77-year-old male with past medical history significant for CLL, autoimmune hemolytic anemia, GERD that presented to the ER yesterday with fevers. Symptoms started about 5 days ago. He endorses associated fevers, chills, nausea with 1 episode of vomiting, fatigue, mild shortness of breath with exertion, cough which is worse at night and slightly productive, poor appetite. He denies any diarrhea, myalgia, chest pain, headache. Today, he is feelinga little bit better. Patient has significantly improved regarding his pneumonia. Respiratory failure has resolved and tolerating room air. Unfortunately, his hemoglobin has been trending down. With his history of cold agglutinin hemolytic anemia, CLL, and iron overload he would be best served at a facility with hematology. Case was discussed with hospitalist, Dr. Varghese, who graciously accepts. Patient will go to hematology floor via ambulance. Patient and son, Leo, were both updated and agreeable to plan. He is currently hemodynamically stable. Severe sepsis-resolved Present in ER with fever, leukocytosis, tachycardia, and tachypnea. Source pneumonia. Immunocompromised with CLL and autoimmune hemolytic anemia Antibiotic treatment as below Blood cultures no growth to date Lactate WNL Received 2 L fluid bolus. Will continue IVF. WBC is chronically elevated with CLL. HR and RR have normalized. Afebrile for almost 24 hours. Bilateral multifocal pneumonia Metapneumovirus With elevated PCT and immunocompromised will treat for bacterial pneumonia IV azithro x3 days and ceftriaxone Supportive care with expectorants and antitussives Sputum culture if able IS/acapella Trend PCT, mild increase from 0.33->0.53, to be expected within first 24 hrs Autoimmune hemolytic anemia Has chronic hyperbilirubinemia. Continue to monitor. Cold agglutinin hemolytic anemia and hemochromatosis Hgb has trended down to 6.7. 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 Stop Lovenox Recommended checking retic count, LDH, bilirubin, haptoglobin and Arpan test. If positive for hemolytic anemia from his CLL, then will need to be started on prednisone 1 mg/kg. Would recommend transfusing for hgb <7 Patient also has h/o hemochromatosis, which would make transfusing difficult D/w Hospitalist at [facility] and agree patient should be transferred for hematology consultation. Patient and family agreeable as well. Acute respiratory failure with hypoxia-resolved Secondary to pneumonia. No history of home oxygen. SpO2 desaturations to 85% on RA. Improved with supplemental oxygen. Will continue PRN. Titrate for saturations >92%. Albuterol PRN. Tolerating room air since this AM Consider 6 min walk test prior to discharge to rule out exertional hypoxia Abnormal EKG NSR, rate 87. Nonspecific T wave abnormalities. No previous EKG to compare. Denies chest pain. Troponin negative. Follow-up with PCP CLL Under surveillance. Follows with Dr. Little at [facility] every 3 months. Has appt scheduled on Tuesday 07/11. Other chronic conditions which adds to complexity of care: GERD. Continue home medications unless otherwise indicated. Critical care time 90 minutes This patient had a high probability of imminent or life-threatening deterioration due to worsening anemia, concerning for hemolytic anemia 2/2 agglutinin vs CLL, which required my direct attention, intervention, and personal management. I have personally provided minutes as above of critical care time exclusive of time spent on separately billable procedures. Time includes review of laboratory data, radiology results, discussion with consultants, multiple talks with patient and family, discussion with transferring facility, and monitoring for potential decompensation. Interventions were performed as documented above. Discharge Exam: Filed Vitals: 07/09/23 0348 07/09/23 0730 07/09/23 1053 07/09/23 1105 BP: 114/48 117/51 115/43 Pulse: 75 81 79 Resp: 22 20 20 Temp: 98.2 ??F (36.8 ??C) 99.5 ??F (37.5 ??C) 98.7 ??F (37.1 ??C) TempSrc: Temporal Temporal Temporal SpO2: 92% 92% 95% 93% Weight: 78.6 kg (173 lb 4.5 oz) Height: GEN: In no acute distress. Breathing comfortably on room air. HEENT: Clear conjunctiva. Mucous membranes moist. RESPIRATORY: Effort normal. Rhonchi throughout,mildly improved today. No wheezes or crackles. CVS: RRR, no MRG. ABD: Soft, Nontender. EXT: No edema. SKIN: Pallor. Warm, dry. No rashes or ulcers. PSYCH: Appropriate affect NEURO: Alert and oriented. No focal deficits Significant Diagnostic Studies: Recent Labs Lab 07/07/23 1645 07/08/23 0858 07/09/23 0722 WBC 16.16* 17.00* 15.61* RBC COLD AGGLUTININ PRESENT. WARM SALINE REPLACEMENT PROCEDURE USED, MAW 2.35* 2.03* HGB 8.3* 7.9* 6.7* HCT 25.0* 24.9* 21.2* MCV 101.6* 106.0* 104.4* MCH 33.7* 33.6* 33.0* MCHC 33.2 31.7* 31.6* PLT 133* 165 151 RDW 14.6* 15.5* 15.7* MPV 13.4* 12.3* 12.9* PERNEU 83.1* 77.7* 56.8 PERLYM 11.5* 16.2 35.0 PERMON 4.0* 4.8* 5.4* NEUC 13.44* 13.23* 8.87* LYMC 1.86 2.75 5.46* Recent Labs Lab 07/07/23 1645 07/08/23 0859 07/09/23 0722 NA 132* 136 138 K 4.2 4.8 4.5 CL 97* 103 103 CO2 26.5 26.3 28.0 AGAP 8.5 6.7 7.0 BUN 22* 17 18 CR 1.17 0.99 1.01 BUNCREATININ 18.8 17.2 17.8 GLU 117* 118* 90 CA 8.3* 7.9* 8.0* TP 6.6 -- -- ALB 3.5 -- -- TBIL 3.8* -- 2.2* ALKP 83 -- -- AST 41* -- -- ALT 20 -- -- No results for input(s): CHOL , TRI , HDL , LDL , HGBA1C , TSH in the last 168 hours. Recent Labs Lab 07/08/23 0858 INR 1.2 PTT 30.4 Recent Labs Lab 07/07/23 1645 TROP 15 Recent Labs Lab 07/07/23 1839 07/08/23 0859 07/09/23 0722 LACTICACID 1.1 -- -- PROCT -- 0.33* 0.53* No results for input(s): PH , PCO2 , PO2 , [id number] , BICARBWB , BASEDEFICIT , BASEEXCESS in the last 168 hours. Results for orders placed or performed during the hospital encounter of 07/07/23 URINALYSIS, AUTO, COMPLETE Result Value Ref Range COLOR (U) DARK YELLOW TRANSPARENCY CLEAR SPECIFIC GRAVITY (U) 1.015 1.000 - 1.030 U PH 6.5 5.0 - 9.0 LEUKOCYTES (U) NEGATIVE NEGATIVE NITRITES NEGATIVE NEGATIVE PROTEIN RANDOM (U) 1+ (A) NEGATIVE GLUCOSE (U) NEGATIVE NEGATIVE KETONES (U) TRACE (A) NEGATIVE BILIRUBIN (U) NEGATIVE NEGATIVE BLOOD (U) 2+ (A) NEGATIVE WBC/HPF 0-5 0 - 5 /HPF RBC/HPF 0-5 0 - 5 /HPF EPI/HPF FEW /HPF CULTURE & SENSITIVITY INDICATED? CULTURE IS NOT INDICATED Radiology Reports : See official reports for full details CT chest abd pel WC 07/07/23 Cardiac chambers within normal size limits. Moderate coronary atherosclerosis. No significant pericardial effusion. Nonaneurysmal thoracic aorta exhibits atherosclerosis. Pulmonary trunk diameter within normal limits. Coarse calcifications in mediastinal and bilateral hilar lymph nodes; this can be seen with antecedent granulomatous disease as well as posttreatment lymphoma. Other prominent mediastinal lymph nodesare not enlarged by size criteria. No axillary lymphadenopathy. No suspicious thyroid nodule. Esophagus within normal limits. Trachea and central airways are patent. No pneumothorax. Scattered patchy groundglass opacities present in the right upper and lower lobes and to a lesser degree in right middle and left lower lobes.Questionable similar focus in anterior left apex. Benign calcified pulmonary granulomata. No pleural effusion. ABDOMEN/PELVIS: Scattered benign calcified granulomata in the hepatic and splenic parenchyma. Normal size liver. Nosuspicious hepatic lesion. Cholecystectomy. Main portal vein, splenic vein, SMV, and SMA enhance. Atherosclerosis of the abdominal and pelvic vasculature. No retroperitoneal lymphadenopathy. No evidence of bowel obstruction or inflammation. Normal appearing appendix. No free gas in the abdomen or pelvis. No mesenteric lymphadenopathy. Stomach within normal limits. Incidental note of a small duodenal diverticulum. Mild splenomegaly, measuring 14.0 cm. Incidental note of a small splenule. Pancreas within normal limits. Adrenal glands within normal limits. Kidneys enhance symmetrically. Possible partial nephrectomy/ablation of the inferior pole of the left kidney. Benign-appearing bilateral renal cystic foci for which no further follow-up is recommended. 0.3 cm nonobstructing calculus in the inferior pole of the left kidney. No hydronephrosis or hydroureter. Bladder within normal limits for degree of distention. Top normal size prostate, minimally contoursthe bladder trigone. Seminal vesicles within normal limits. Incidental note of benign pelvic phleboliths. No pelvic lymphadenopathy or significant free fluid. Small bilateral fat-containing inguinal hernias without evidence of complication. Possible the vasectomy clip on the right. MSK: Chronic degenerative changes of the hips, pubic symphysis, and sacroiliac joints. Nonspecific small sclerotic foci in the right femoral head may represent benign bone islands, though other etiologies are not excluded. Chronic multilevel degenerative changes of the spine. Visualized body wall exhibits no acute abnormality. IMPRESSION: 1. Findings compatible with bilateral multifocal pneumonia; findings most pronounced in the right upper and lower lobes. Pattern suggests atypical/viral pneumonia. 2. Mild splenomegaly. 3. Possible partial nephrectomy versus ablation of the inferior pole of the left kidney. 4. 0.3 cm nonobstructing left renal calculus. 5. Coarse calcifications in mediastinal and bilateral hilar lymph nodes; this can be seen with antecedent granulomatous disease as well as posttreatment lymphoma. Benign calcified pulmonary granulomata and granulomata in the hepatic/splenic parenchyma as evidence for antecedent granulomatous disease. 6. Other chronic/nonurgent findings, as above. CXR 07/07/23 Postinflammatory calcifications are present with calcified granulomata in the lungs and calcified lymph nodes. There is some minimal linear atelectasis or fibrosis posterior laterally in the left lung base. The remainder the lungs are clear. The heart size is within normal limits. No vascular congestion. No pleural effusion. No pneumothorax. Anterior bridging osteophytes lower thoracic spine. IMPRESSION: Minimal linear infiltrate atelectasis or fibrosis left lower lung. 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1945 Requested By: RODRÍGUEZ GAINES Order Number: [id number] Reading MD: Channing Sanchez Measurements Intervals [place] Rate: 87 P: 51 CT: 129 QRS: 34 QRSD: 109 T: -1 QT: 360 QTc: 433 Interpretive Statements SINUS RHYTHM INCOMPLETE RIGHT BUNDLE BRANCH BLOCK [90+ ms QRS DURATION, TERMINAL R IN V1/V2, 40+ ms S IN I/aVL/V4/V5/V6] NONSPECIFIC ST & T-WAVE ABNORMALITY No previous ECG available for comparison Discharge condition: Stable Discharge Medications: Medication List CONTINUE taking these medications Morning Afternoon Evening Bedtime As Needed CALCIUM CARBONATE OR Take 600 mg by mouth daily. Cinnamon Bark Powd Take 1,200 mg by mouth daily. DIATX OR Take 1 tablet by mouth daily. famotidine 20 MG tablet Commonly known as: PEPCID Take 1 tablet (20 mg total) by mouth 2 (two) times daily. Last time this was given: 20 mg on July 09, 2023 9:05 AM Signed by: Dr. Ryan Maloney Last time this was given: July 09, 2023 9:05 AM GALZIN OR Take 1 tablet by mouth daily. 15 mg once daily magnesium oxide 250 MG tablet Commonly known as: MAG-OX Take 1 tablet (250 mg total) by mouth daily. Move Free Joint [facility] Advance Tabs Take 1 tablet by mouth daily. Vitamin D3 50 mcg tablet Commonly known as: cholecalciferol Take 0.5 tablets (1,000 Units total) by mouth 2 (two) times a day. Disposition: Transfer to [facility] via ambulance Discharge diet: The patient is asked to make an attempt to improve diet and exercise patterns to aid in medical management of this problem. Code Status: Full Code Time Spent on Discharge >30 minutes Signed: MAGNO HOLLINS APRN This note was dictated with [employer]Ventive medical dictation software; misspellings, punctuation errors, omitted words or dictation variances may occur. Cosigned by Bharath Moody MD at 07/10/2023 8:42 AM CDT Associated attestation - Bharath Moody MD - 07/10/2023 8:42 AM CDT The patient was seen and examined separately from the Advanced Provider. I reviewed the chart and agree with the orders and Assessment / Plan as documented. GEN Tired, Speaking in complete sentences HEENT MMM CHEST normal work of breathing CVS trace edema Abd non distended Ext tr edema Psych Flat affect, nl mood Neuro CNII-XII grossly intact The significant portion of care was performed by myself. 77-year-old male with pneumonia febrile of1-1.5 yesterday and currently 99.3 continue current regimen May DC telemetry. documented in this encounter Medications at Time of Discharge B Oanowtv-C-Cwtri Acid (DIATX OR) Take 1 tablet by mouth daily. Calcium Carbonate Antacid (CALCIUM CARBONATE OR) Take 300 mg by mouth every evening. Cholecalciferol (VITAMIN D3) 2000 units Tab Take 1 tablet (50 mcg total) by mouth every evening. Cinnamon Bark Powder Take 1,200 mg by mouth daily. Jqkyiw-Tcpkh-Cirs Ac-Ca Fructo (MOVE FREE [facility]) Tab Take 1 tablet by mouth daily. magnesium oxide 250 MG tablet Take 1 tablet (250 mg total) by mouth nightly at bedtime. famotidine (PEPCID) 20 MG tabletIndications :Gastroesophageal reflux disease without esophagitis Take 1 tablet (20 mg total) by mouth 2 (two) times daily. 180 tablet 3 06/21/2022 08/16/2023 Zinc Acetate, Oral, (GALZIN OR) Take 1 tablet by mouth daily. 15 mg once daily 02/08/2024 documented as of this encounter Progress Notes * Magno Hollins APRN - 07/09/2023 5:40 PM CDT Request for Documentation Clarification Richard Cristina ; VISIT [id number] Query Response Sent: 07/19/23 07:48 CDT From: Magno Hollins APRN Query question: Based on medical judgment and consideration of these clinical indicators, the following condition was evaluated, monitored and/or treated during this episode of care Provider response: Severe sepsis with acute organ dysfunction: acute organ failure with acute respiratory failure with hypoxia Original Query Sent: 07/19/23 06:53 CDT From: Charlotte Branch RN, CDS To: Magno Hollins APRN By submitting this query, we are seeking further clarification of documentation to accurately reflect all conditions that you monitored, evaluated, treated, or that may have extended the hospitalization or utilization of additional resources for care. Chart review has indicated your clinical opinion is needed regarding the following diagnosis. Your response serves as your authenticated entry to the Legal Medical Record. The fact that a question isasked does not imply that any particular diagnosis is desired or expected. Based on medical judgment and consideration of these clinical indicators, the following condition was evaluated, monitored and/or treated during this episode of care * Severe sepsis with acute organ dysfunction * Sepsis without acute organ dysfunction * Other Clinical Information Epic Labs and V/S: T 101.7, HR 91, RR 30, BP 127/52, 122/54 w MAP 69, SpO2 92% on RA, Creatinine 1.17, Glucose 117, AST 41, ALT 20, Bili 3.8, Lactic acid 1.1, Procal 0.33, WBC 16.16, Plt 133 (07/06) T 101.3, HR 103, RR 24, MAP 67, SpO2 85% on RA, 92% on 2L NC, Creatinine 0.99, Procal 0.53, Bili 2.2, WBC 17.0, Plt 165 (07/07) Disch Summ by Magno Hollins at 07/10/2023 08:42 77-year-old male with past medical history significant for CLL, autoimmune hemolytic anemia, GERD that presented to the ER yesterday with fevers. Symptoms started about 5 days ago. He endorses associated fevers, chills, nausea with 1 episode of vomiting, fatigue, mild shortness of breath with exertion, cough which is worse at night and slightly productive, poor appetite. He denies any diarrhea, myalgia, chest pain, headache. Today, he is feeling a little bit better. Patient has significantly improved regarding his pneumonia. Respiratory failure has resolved and tolerating room air. Unfortunately, his hemoglobin has been trending down. With his history of cold agglutinin hemolytic anemia, CLL, and iron overload he would be best served at a facility with hematology. Case was discussed with hospitalist, Dr. Varghese, who graciously accepts. Patient will go to hematology floor via ambulance. Patient and son, Leo, were both updated and agreeable to plan. He is currently hemodynamically stable. Severe sepsis-resolved Present in ER with fever, leukocytosis, tachycardia, and tachypnea. Source pneumonia. Immunocompromised with CLL and autoimmune hemolytic anemia Antibiotic treatment as below Blood cultures no growth to date Lactate WNL Received 2 L fluid bolus. Will continue IVF. WBC is chronically elevated with CLL. HR and RR have normalized. Afebrile for almost 24 hours. Bilateral multifocal pneumonia Metapneumovirus With elevated PCT and immunocompromised will treat for bacterial pneumonia IV azithro x3 days and ceftriaxone Disch Summ by Magno Hollins at 07/10/2023 08:42 Autoimmune hemolytic anemia Has chronic hyperbilirubinemia. Continue to monitor. Cold agglutinin hemolytic anemia and hemochromatosis Disch Summ by Magno Hollins at 07/10/2023 08:42 Acute respiratory failure with hypoxia-resolved Secondary to pneumonia. No history of home oxygen. SpO2 desaturations to 85% on RA. Improved with supplemental oxygen. Will continue PRN. Titrate for saturations >92%. Albuterol PRN. Tolerating room air since this AM Consider 6 min walk test prior to discharge to rule out exertional hypoxia * Angelita Gallardo RN - 07/09/2023 3:07 PM CDT 07/09/23 1506 Discharge Planning Living Arrangements Spouse/significant other Support Systems Spouse/significant other Type of Residence Private residence Assistance Needed No Patient expects to be discharged to: Home or Self care no new needs IV Infusion at discharge No DME Needed at Discharge No * Yanira Maradiaga RN - 07/09/2023 10:15 AM CDT Problem: Discharge Planning Goal: Knowledge of discharge instructions Outcome: Progressing Goal: Absence of Community Acquired Pneumonia Infection Signs and Symptoms Outcome: Progressing Problem: Airway Clearance - Ineffective Goal: Patent airway Outcome: Progressing Problem: Gas Exchange - Impaired Goal: Adequate oxygenation Outcome: Progressing Problem: Venous Thromboembolism - Risk of Goal: Absence of venous thromboembolism Outcome: Progressing Problem: Infection Goal: Absence of infection signs and symptoms Infection/Isolation Outcome: Progressing Problem: Reduced risk for falls/injury Goal: Reduced Risk for Falls/Injury Outcome: Progressing Problem: Infection/Colonization Infection/Isolation Goal: Absence of infection signs and symptoms Infection/Isolation Outcome: Progressing Problem: Discharge Planning Goal: Knowledge of discharge [...] Absence of new skin breakdown Outcome: Progressing * Hamida Gonzalez RN - 07/08/2023 11:39 PM CDTSummary: Care Plan Problem: Airway Clearance - Ineffective Goal: Patent airway Outcome: Progressing Problem: Gas Exchange - Impaired Goal: Adequate oxygenation Outcome: Progressing Problem: Venous Thromboembolism - Risk of Goal: Absence of venous thromboembolism Outcome: Progressing Problem: Reduced risk for falls/injury Goal: Reduced Risk for Falls/Injury Outcome: Progressing * Yanira Maradiaga RN - 07/08/2023 5:51 PM CDT Problem: Discharge Planning Goal: Knowledge of discharge instructions Outcome: Progressing Goal: Absence of Community Acquired Pneumonia Infection Signs and Symptoms Outcome: Progressing Problem: Airway Clearance - Ineffective Goal: Patent airway Outcome: Progressing Problem: Gas Exchange - Impaired Goal: Adequate oxygenation Outcome: Progressing Problem: Venous Thromboembolism - Risk of Goal: Absence of venous thromboembolism Outcome: Progressing Problem: Infection Goal: Absence of infection signs and symptoms Infection/Isolation Outcome: Progressing Problem: Reduced risk for falls/injury Goal: Reduced Risk for Falls/Injury Outcome: Progressing Problem: Infection/Colonization Infection/Isolation Goal: Absence of infection signs and symptoms Infection/Isolation Outcome: Progressing * Annamarie Crow RN - 07/08/2023 2:45 PM CDT 07/08/23 1444 Referral Data Source of Information Other Family Members Patient Information Primary Caregiver Self Current living Situation Spouse/significant other Type of Residence Private residence Support System Spouse/Significant Other Recent Hospitalization Recent Hospitalization within 30 days No Baseline ADL's Functional Status Independent Psychosocial Need Indicator Mental health concerns No DC screening tool This is a screening [...] needs Adequate Resources Available Adequate Resources Yes RNCM performed bedside interview, verified patient's name and : Support: family Home: with spouse Ambulation: Ind DME products: none Medical Devices: ADLs: Transport Home: family Skin/Bladder/Bowel: A/O: Communication: Home Health: Occupation: Pharmacy: w/[facility] [employer] Financial Concerns: PCP/Insurance Plan: Dr Maloney/love Discharge needs: spoke by phone with patient's daughter who states the patient will have transportation and everything he needs. They would be open to home health if needed. Cm will cont to follow. Care Coordination Team will provide discharge planning as needed, and will re- evaluate based on recommendations, treatment course, and the patient's expressed preferences. documented in this encounter H&P Notes * Magno Hollins APRN - 07/08/2023 8:31 AM CDT Hospitalist History and Physical Patient: Richard Pringle Date: 07/08/2023 male, 77-year-old Admit Date: 07/07/2023 Attending: Magno Hollins APRN REASON FOR ADMISSION: Pneumonia HISTORY OF PRESENT ILLNESS: Richard Pringle is a 77-year-old male with past medical history significant for CLL, autoimmune hemolytic anemia, GERD that presented to the ER yesterday with fevers. Symptoms started about 5 days ago.He endorses associated fevers, chills, nausea with 1 episode of vomiting, fatigue, mild shortness of breath with exertion, cough which is worse at night and slightly productive, poor appetite. He denies any diarrhea, myalgia, chest pain, headache. Today, he is feeling a little bit better. History obtained via chart review, discussion with patient, and review of outside records. Allergy Allergies Allergen Reactions [place] [Hydrocodone-Acetaminophen] Nausea Only Medication list Medications Prior to Admission Medication Sig Dispense Refill B Vrzwcgv-H-Myodz Acid (DIATX OR) Take 1 tablet by mouth daily. Calcium Carbonate Antacid (CALCIUM CARBONATE OR) Take 600 mg by mouth daily. Cholecalciferol (VITAMIN D3) 2000 units Tab Take 0.5 tablets (1,000 Units total) by mouth 2 (two) times a day. Cinnamon Bark Powder Take 1,200 mg by mouth daily. famotidine (PEPCID) 20 MG tablet Take 1 tablet (20 mg total) by mouth 2 (two) times daily. 180 tablet 3 Gubsdp-Mygiv-Ikpu Ac-Ca Fructo ([facility] ADVANCE) Tab Take 1 tablet by mouth daily. magnesium oxide 250 MG tablet Take 1 tablet (250 mg total) by mouth daily. Zinc Acetate, Oral, (GALZIN OR) Take 1 tablet by mouth daily. 15 mg once daily No current facility-administered medications on file prior to encounter. Current Outpatient Medications on File Prior to Encounter Medication Sig Dispense Refill B Tfbxbhb-M-Cznto Acid (DIATX OR) Take 1 tablet by mouth daily. Calcium Carbonate Antacid (CALCIUM CARBONATE OR) Take 600 mg by mouth daily. Cholecalciferol (VITAMIN D3) 2000 units Tab Take 0.5 tablets (1,000 Units total) by mouth 2 (two) times a day. Cinnamon Bark Powder Take 1,200 mg by mouth daily. famotidine (PEPCID) 20 MG tablet Take 1 tablet (20 mg total) by mouth 2 (two) times daily. 180 tablet 3 Dvvbmo-Wmeyf-Lfur Ac-Ca Fructo ([facility]) Tab Take 1 tablet by mouth daily. magnesium oxide 250 MG tablet Take 1 tablet (250 mg total) by mouth daily. Zinc Acetate, Oral, (GALZIN OR) Take 1 tablet by mouth daily. 15 mg once daily Medications were reconciled past lability given fall available resources at the time of admission. Route is p.o. if not otherwise noted. Past Medical History Past Medical History: Diagnosis Date Anemia Cataract Chronic lymphocytic leukemia ([facility]/HCC [facility]/HCC) GERD (gastroesophageal reflux disease) Past Surgical History: Procedure Laterality Date CHOLECYSTECTOMY EXCISION BASAL CELL CARCINOMA KNEE ARTHROSCOPY Right knee REMOVAL OF SPERM DUCT(S) TRANSURETHRAL RESECTION OF BLADDER Social History Social History Socioeconomic History Marital status: Number of children: 2 Tobacco Use Smoking status: Former Current packs/day: 0.00 Average packs/day: 1.5 packs/day for 3.0 years (4.5 ttl pk-yrs) Types: Cigarettes Start date: 01/1965 Quit date: 1967 Years since quittin.4 Passive exposure: Never Smokeless tobacco: Never Tobacco comments: quit Vaping Use Vaping status: Never Used Substance and Sexual Activity Alcohol use: No Drug use: No Sexual activity: Not Currently Partners: Female control/protection: Surgical, None Social Determinants of Health Financial Resource Strain: Low Risk (07/07/2023) Overall Financial Resource Strain (CARDIA) Difficulty of Paying Living Expenses: Not hard at all Food Insecurity: No Food Insecurity (07/07/2023) Hunger Vital Sign Worried About Running Out of Food in the Last Year: Never true Ran Out of Food in the Last Year: Never true Transportation Needs: No Transportation Needs (07/07/2023) PRAPARE - Transportation Lack of Transportation (Medical): No Lack of Transportation (Non-Medical): No Intimate Partner Violence: Not At Risk (07/07/2023) Humiliation, Afraid, Rape, and Kick questionnaire Fear of Current or Ex-Partner: No Emotionally Abused: No Physically Abused: No Sexually Abused: No Housing Stability: Low Risk (07/07/2023) Housing Stability Vital Sign Unable to Pay for Housing in the Last Year: No Number of Times Moved in the Last Year: 0 Homeless in the Last Year: No Family History Family History Problem Relation Name Age of Onset Cancer Mother Margmakayla skin Heart Disease Maternal Grandmother Verti Cancer Sister Radha REVIEW OF SYSTEMS: A 14 point review of systems was taken and pertinent positive as per HPI PHYSICAL EXAMINATION: Vital 24 Hour Range Most Recent Value Temperature Temp Min: 97.7 ??F (36.5 ??C) Max: 101.7 ??F (38.7 ??C) 98.2 ??F (36.8 ??C) Pulse Pulse Min: 71 Max: 103 82 Respiratory Resp Min: 18 Max: 30 19 Blood Pressure BP Min: 109/53 Max: 143/63 119/54 Pulse Oximetry SpO2 Min: 85 % Max: 98 % 95 % O2 O2 Flow Rate (L/min) Av L/min Min: 2 L/min Min taken time: 07/08/23 0700 Max: 2 L/min Max taken time: 07/08/23 0700 Vital Most Recent Value First Value Weight 77.9 kg (171 lb 11.8 oz) Weight: 74.8 kg (165 lb) Height 172.7 cm (5' 8 ) Height: 172.7 cm (5' 8 ) BMI (!) 26.12 N/A Physical Exam: GEN: In no acute distress. Breathing comfortably on nasal cannula. Harsh cough with deep inspiration HEENT: Clear conjunctiva. Mucous membranes moist. RESPIRATORY: Effort normal. Rhonchi throughout, no wheezes or crackles. CVS: RRR, no MRG. ABD: Soft, Nontender. EXT: No edema. SKIN: Warm, dry. No rashes or ulcers. PSYCH: Appropriate affect NEURO: Alert and oriented. No focal deficits Intake/Output last 3 shifts: I/O last 3 completed shifts: In: 200 [I.V.:200] Out: - Labs: Recent Labs Lab 07/07/23 1645 NA 132* K 4.2 CL 97* CO2 26.5 AGAP 8.5 BUN 22* CR 1.17 BUNCREATININ 18.8 GLU 117* CA 8.3* Recent Labs Lab 07/07/23 1645 WBC 16.16* RBC COLD AGGLUTININ PRESENT. WARM SALINE REPLACEMENT PROCEDURE USED, MAW HGB 8.3* HCT 25.0* MCV 101.6* MCH 33.7* MCHC 33.2 PLT 133* RDW 14.6* MPV 13.4* Recent Labs Lab 07/07/23 1645 AST 41* ALT 20 No results for input(s): INR , PTT in the last 168 hours. Invalid input(s): ABG arterial blood gases Recent Labs Lab 07/07/23 1645 TROP 15 No results for input(s): PH , PCO2 , PO2 , [id number] , BICARBWB , BASEDEFICIT , BASEEXCESS in the last 168 hours. Laboratory results above were independently viewed and interpreted by me. Imaging & Other Studies See official reports for full details CT chest abd pel WC 07/07/23 Cardiac chambers within normal size limits. Moderate coronary atherosclerosis. No significant pericardial effusion. Nonaneurysmal thoracic aorta exhibits atherosclerosis. Pulmonary trunk diameter within normal limits. Coarse calcifications in mediastinal and bilateral hilar lymph nodes; this can be seen with antecedent granulomatous disease as well as posttreatment lymphoma. Other prominent mediastinal lymph nodesare not enlarged by size criteria. No axillary lymphadenopathy. No suspicious thyroid nodule. Esophagus within normal limits. Trachea and central airways are patent. No pneumothorax. Scattered patchy groundglass opacities present in the right upper and lower lobes and to a lesser degree in right middle and left lower lobes.Questionable similar focus in anterior left apex. Benign calcified pulmonary granulomata. No pleural effusion. ABDOMEN/PELVIS: Scattered benign calcified granulomata in the hepatic and splenic parenchyma. Normal size liver. Nosuspicious hepatic lesion. Cholecystectomy. Main portal vein, splenic vein, SMV, and SMA enhance. Atherosclerosis of the abdominal and pelvic vasculature. No retroperitoneal lymphadenopathy. No evidence of bowel obstruction or inflammation. Normal appearing appendix. No free gas in the abdomen or pelvis. No mesenteric lymphadenopathy. Stomach within normal limits. Incidental note of a small duodenal diverticulum. Mild splenomegaly, measuring 14.0 cm. Incidental note of a small splenule. Pancreas within normal limits. Adrenal glands within normal limits. Kidneys enhance symmetrically. Possible partial nephrectomy/ablation of the inferior pole of the left kidney. Benign-appearing bilateral renal cystic foci for which no further follow-up is recommended. 0.3 cm nonobstructing calculus in the inferior pole of the left kidney. No hydronephrosis or hydroureter. Bladder within normal limits for degree of distention. Top normal size prostate, minimally contoursthe bladder trigone. Seminal vesicles within normal limits. Incidental note of benign pelvic phleboliths. No pelvic lymphadenopathy or significant free fluid. Small bilateral fat-containing inguinal hernias without evidence of complication. Possible the vasectomy clip on the right. MSK: Chronic degenerative changes of the hips, pubic symphysis, and sacroiliac joints. Nonspecific small sclerotic foci in the right femoral head may represent benign bone islands, though other etiologies are not excluded. Chronic multilevel degenerative changes of the spine. Visualized body wall exhibits no acute abnormality. IMPRESSION: 1. Findings compatible with bilateral multifocal pneumonia; findings most pronounced in the right upper and lower lobes. Pattern suggests atypical/viral pneumonia. 2. Mild splenomegaly. 3. Possible partial nephrectomy versus ablation of the inferior pole of the left kidney. 4. 0.3 cm nonobstructing left renal calculus. 5. Coarse calcifications in mediastinal and bilateral hilar lymph nodes; this can be seen with antecedent granulomatous disease as well as posttreatment lymphoma. Benign calcified pulmonary granulomata and granulomata in the hepatic/splenic parenchyma as evidence for antecedent granulomatous disease. 6. Other chronic/nonurgent findings, as above. CXR 07/07/23 Postinflammatory calcifications are present with calcified granulomata in the lungs and calcified lymph nodes. There is some minimal linear atelectasis or fibrosis posterior laterally in the left lung base. The remainder the lungs are clear. The heart size is within normal limits. No vascular congestion. No pleural effusion. No pneumothorax. Anterior bridging osteophytes lower thoracic spine. IMPRESSION: Minimal linear infiltrate atelectasis or fibrosis left lower lung. Results for orders placed or performed during the hospital encounter of 07/07/23 [address] 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 Assessment & Plan Severe sepsis Present in ER with fever, leukocytosis, tachycardia, and tachypnea. Source pneumonia. Immunocompromised with CLL and autoimmune hemolytic anemia Antibiotic treatment as below Blood cultures pending Lactate WNL Received 2 L fluid bolus. Will continue IVF. Bilateral multifocal pneumonia Respiratory panel pending IV azithro x3 days and ceftriaxone Supportive care with expectorants and antitussives Sputum culture if able IS/acapella Trend PCT Acute respiratory failure with hypoxia Secondary to pneumonia. No history of home oxygen. SpO2 desaturations to 85% on RA. Improved with supplemental oxygen. Will continue PRN. Titrate for saturations >92%. Albuterol PRN. Consider 6 min walk test prior to discharge Abnormal EKG NSR, rate 87. Nonspecific T wave abnormalities. No previous EKG to compare. Denies chest pain. Troponin negative. Follow-up with PCP CLL Under surveillance. Follows with Dr. Little at [facility] every 3 months. Has appt scheduled on Tuesday 07/11. Will plan to update oncologist off on Monday if patient is still hospitalized and send DC summary when patient is discharged. Autoimmune hemolytic anemia Hgb is stable. Has chronic hyperbilirubinemia. Continue to monitor. Cold agglutinin hemolytic anemia and hemochromatosis Other chronic conditions which adds to complexity of care: GERD. Continue home medications unless otherwise indicated. -DVT prophylaxis: Lovenox -Lines/tubes: PIV -IVF: NS@75 mL/h, will plan to stop around 1600 -Diet: General -Level of care: Medical -Anticipated disposition at discharge: Home -PCP: Ryan Maloney, Advanced care plan: Spent 16 minutes discussing CODE STATUS with patient. His daughter, Cecy is first in line, and his son, Leo, is second line as his POA. He would be okay with full treatment. Will make full code Plan of care was discussed with patient with provided time for questions and concerns. Plan of carewas also discussed with RN, RNCM/SW, and collaborating physician. Notes reviewed from consults and specialists, as well as PT/OT, CM/SW, and pastoral care. 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 RN CM/SW consulted to assist with identifying needs and discharge planning. I certify that inpatient services for greater than 2 midnights are medically necessary for this patient. This note was dictated with [employer] medical dictation software; misspellings, punctuation errors, omitted words or dictation variances may occur. MAGNO HOLLINS APRN 07/08/2023 Cosigned by Bharath Moody MD at 07/09/2023 8:37 AM CDT Associated attestation - Bharath Moody MD - 07/09/2023 8:37 AM CDT The patient was seen and examined separately from the Advanced Provider. I reviewed the chart and agree with the orders and Assessment / Plan as documented. GEN Tired, Speaking in complete sentences HEENT MMM CHEST normal work of breathing CVS trace edema Abd non distended Ext tr edema Psych Flat affect, nl mood Neuro CNII-XII grossly intact The significant portion of care was performed by myself. 77-year-old male with pneumonia, wean O2 as tolerated. Likely home tomorrow if continues current course. documented in this encounter Nursing Notes * Yanira Maradiaga RN - 07/09/2023 4:08 PM CDT Called report to LULI Jhaveri @ [facility]. No further questions at this time. documented in this encounter ED Notes * Channing Adames MD - 07/07/2023 10:04 PM CDT Emergency Department Assumed Care Note Patient signed out to me by Dr Gaines. Please see their note for details. Briefly, Richard Pringle is a 77-year-old male is being evaluated for cough, near syncope, weakness. Patient has WBC count of [address] of the chest abdomen pelvis does demonstrate a bilateral pneumonia, the patient started on IV Rocephin and azithromycin. He will be admitted to Dr. Bal. Vitals: 07/07/23 2124 BP: Pulse: Resp: Temp: 98.2 ??F (36.8 ??C) SpO2: Labs Reviewed CBC W/DIFF AUTOMATED - Abnormal; Notable for the following components: Result Value WBC 16.16 (*) HGB 8.3 (*) HCT 25.0 (*) MCV 101.6 (*) MCH 33.7 (*) RDW 14.6 (*) PLT 133 (*) MPV 13.4 (*) LYMPHOCYTES 11.5 (*) NEUTROPHILS 83.1 (*) MONOCYTES 4.0 (*) ABS. NEUTROPHILS 13.44 (*) IMMATURE GRANS 1.1 (*) All other components within normal limits COMPREHENSIVE METABOLIC PANEL - Abnormal; Notable for the following components: GLUCOSE 117 (*) BUN 22 (*) SODIUM S/P/B 132 (*) CHLORIDE S/P/B 97 (*) CALCIUM S/P/B 8.3 (*) BILIRUBIN TOTAL S/P/B 3.8 (*) AST 41 (*) GFR ESTIMATE 64 (*) All other components within normal limits URINALYSIS, AUTO, COMPLETE - Abnormal; Notable for the following components: PROTEIN RANDOM (U) 1+ (*) KETONES (U) TRACE (*) BLOOD (U) 2+ (*) All other components within normal limits TROPONIN, QUANT LACTIC ACID OCCULT BLOOD, FECES CULTURE, BACTERIA, BLOOD CULTURE, BACTERIA, BLOOD CT CHEST+ABD+PEL W CON Final Result by User, [email or web address] (07/06 2117) INDICATION: sepsis without a source; fever of unknown origin, nausea, emesis; history of bladder cancer and leukemia COMPARISON: None TECHNIQUE: CT images of the chest, abdomen, and pelvis were obtained following the administration of IV contrast. Radiation dose reduction technique utilized. FINDINGS: CHEST: Cardiac chambers within normal size limits. Moderate coronary atherosclerosis. No significant pericardial effusion. Nonaneurysmal thoracic aorta exhibits atherosclerosis. Pulmonary trunk diameter within normal limits. Coarse calcifications in mediastinal and bilateral hilar lymph nodes; this can be seen with antecedent granulomatous disease as well as posttreatment lymphoma. Other prominent mediastinal lymph nodes are not enlarged by size criteria. No axillary lymphadenopathy. No suspicious thyroid nodule. Esophagus within normal limits. Trachea and central airways are patent. No pneumothorax. Scattered patchy groundglass opacities present in the right upper and lower lobes and to a lesser degree in right middle and left lower lobes. Questionable similar focus in anterior left apex. Benign calcified pulmonary granulomata. No pleural effusion. ABDOMEN/PELVIS: Scattered benign calcified granulomata in the hepatic and splenic parenchyma. Normal size liver. No suspicious hepatic lesion. Cholecystectomy. Main portal vein, splenic vein, SMV, and SMA enhance. Atherosclerosis of the abdominal and pelvic vasculature. No retroperitoneal lymphadenopathy. No evidence of bowel obstruction or inflammation. Normal appearing appendix. No free gas in the abdomen or pelvis. No mesenteric lymphadenopathy. Stomach within normal limits. Incidental note of a small duodenal diverticulum. Mild splenomegaly, measuring 14.0 cm. Incidental note of a small splenule. Pancreas within normal limits. Adrenal glands within normal limits. Kidneys enhance symmetrically. Possible partial nephrectomy/ablation of the inferior pole of the left kidney. Benign-appearing bilateral renal cystic foci for which no further follow-up is recommended. 0.3 cm nonobstructing calculus in the inferior pole of the left kidney. No hydronephrosis or hydroureter. Bladder within normal limits for degree of distention. Top normal size prostate, minimally contours the bladder trigone. Seminal vesicles within normal limits. Incidental note of benign pelvic phleboliths. No pelvic lymphadenopathy or significant free fluid. Small bilateral fat-containing inguinal hernias without evidence of complication. Possible the vasectomy clip on the right. MSK: Chronic degenerative changes of the hips, pubic symphysis, and sacroiliac joints. Nonspecific small sclerotic foci in the right femoral head may represent benign bone islands, though other etiologies are not excluded. Chronic multilevel degenerative changes of the spine. Visualized body wall exhibits no acute abnormality. IMPRESSION: 1. Findings compatible with bilateral multifocal pneumonia; findings most pronounced in the right upper and lower lobes. Pattern suggests atypical/viral pneumonia. 2. Mild splenomegaly. 3. Possible partial nephrectomy versus ablation of the inferior pole of the left kidney. 4. 0.3 cm nonobstructing left renal calculus. 5. Coarse calcifications in mediastinal and bilateral hilar lymph nodes; this can be seen with antecedent granulomatous disease as well as posttreatment lymphoma. Benign calcified pulmonary granulomata and granulomata in the hepatic/splenic parenchyma as evidence for antecedent granulomatous disease. 6. Other chronic/nonurgent findings, as above. Referred By: Interpreted By: Yunior Traore MD, 07/07/2023 8:56 PM XR CHEST PA+LAT Final Result by User, [email or web address] (07/06 1637) 07/07/2023, 1614 hours. HISTORY: Cough. Intermittent fevers. Abdominal pain. EXAM: PA and lateral chest. Correlation to study 06/08/2020. FINDINGS: Postinflammatory calcifications are present with calcified granulomata in the lungs and calcified lymph nodes. There is some minimal linear atelectasis or fibrosis posterior laterally in the left lung base. The remainder the lungs are clear. The heart size is within normal limits. No vascular congestion. No pleural effusion. No pneumothorax. Anterior bridging osteophytes lower thoracic spine. IMPRESSION: Minimal linear infiltrate atelectasis or fibrosis left lower lung. Ordered By: RODRÍGUEZ GAINES Interpreted By: Tahir Velazquez MD, 07/07/2023 4:28 PM Medications azithromycin (ZITHROMAX) 500 mg in sodium chloride 0.9 % 250 mL IVPB (500 mg Intravenous New Bag 07/07/232139) sodium chloride 0.9% bolus infusion 1,000 mL (0 mLs Intravenous Infusion Stop Time 07/07/231938) ondansetron (ZOFRAN) injection 4 mg (4 mg Intravenous Given 07/07/231834) acetaminophen (TYLENOL) tablet 650 mg (650 mg Oral Given 07/07/231833) sodium chloride 0.9% bolus infusion 1,000 mL (0 mLs Intravenous Infusion Stop Time 07/07/232034) iopamidol (ISOVUE-370) 76 % injection 75 mL (75 mLs Intravenous Given 07/07/232007) cefTRIAXone (ROCEPHIN) 1 g in sterile water 10 mL IV (1 g Intravenous Given 07/07/232139) Disposition: Admit CHANNING ADAMES MD 07/07/2023 10:06 PM Channing Adames MD 07/07/232205 * Rodríguez Gaines MD - 07/07/2023 6:23 PM CDTSummary: ED NOTE Chief Complaint Chief Complaint Patient presents with Near Syncope History of Present Illness Patient is a 77-year-old male with a past medical history of anemia, chronic lymphocytic leukemia, GERD, status post cholecystectomy who presents with near syncope. Patient reports that he has been ill over the last 4 days. Patient reports that he has had cough. Is nonproductive. Patient reports hehas had intermittent fevers and chills. Patient reports that he has had a single episode of vomiting which was described as brown in color. He is talking to his daughter on the phone today and felt like he was going to pass out. He managed to make it to the couch and sat down but felt very dizzy like he was going to pass out but did not pass out. Otherwise patient was tested for COVID and flu. 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 [facility] Medical History ALLERGIES: Review of patient's allergies indicates: Allergen Reactions [place] [Hydrocodone-Acetaminophen] Nausea Only MEDICATIONS: Prior to Admission medications Medication Sig Start Date End Date Taking? Authorizing Provider B Yxrkvso-Z-Gvusx Acid (DIATX OR) Take 1 tablet by mouth daily. Doc [facility] Calcium Carbonate Antacid (CALCIUM CARBONATE OR) Take 600 mg by mouth daily. Doc [facility] Cholecalciferol (VITAMIN D3) 2000 units Tab Take 2 tablets (4,000 Units total) by mouth daily. Doc [facility] Cinnamon Bark Powder Take 1,200 mg by mouth daily. Doc [facility] famotidine (PEPCID) 20 MG tablet Take 1 tablet (20 mg total) by mouth 2 (two) times daily. 06/21/22 Ryan Maloney DO Gompbt-Wdhux-Fvkd Ac-Ca Fructo (M[facility] [employer] [facility]ANCE) [...] leukemia (CMS/HCC HHS/HCC) GERD (gastroesophageal reflux disease) PAST SURGICAL HISTORY: Past Surgical History: Procedure [...] date: 01/1965 Quit date: 1967 Years since quittin.4 Passive exposure: Never Smokeless tobacco: Never Tobacco comments: quit Vaping Use Vaping status: Never Used Substance Use Topics Alcohol use: No Drug use: No Review of Systems Review of Systems Constitutional: Positive for chills and fever. Negative for fatigue. HENT: Negative for rhinorrhea and sore throat. Respiratory: Positive for cough. Negative for shortness of breath. Cardiovascular: Negative for chest pain. Gastrointestinal: Negative for abdominal pain, diarrhea, nausea and vomiting. Endocrine: Negative for polyuria. Genitourinary: Negative for dysuria and frequency. Musculoskeletal: Negative for joint swelling. Skin: Negative for rash. Allergic/Immunologic: Negative for immunocompromised state. Neurological: Negative for dizziness and headaches. Hematological: Negative for adenopathy. Psychiatric/Behavioral: Negative for confusion. Physical Exam Filed Vitals: 07/07/23200407/07/[id number]/07/23209907/07/23 2124 BP: 123/64 111/56 109/53 Pulse: 83 74 71 Resp: 28 18 19 Temp: 98.2 ??F (36.8 ??C) TempSrc: Oral SpO2: 96% 96% Weight: Height: Physical Exam Constitutional: General: He is not in acute distress. Appearance: Normal appearance. HENT: Head: Normocephalic. Mouth/Throat: Mouth: Mucous membranes are moist. Pharynx: Oropharynx is clear. Eyes: Conjunctiva/sclera: Conjunctivae normal. Pupils: Pupils are equal, round, and reactive to light. Cardiovascular: Rate and Rhythm: Normal rate and regular rhythm. Pulses: Normal pulses. Heart sounds: No murmur heard. No gallop. Pulmonary: Effort: Pulmonary effort is normal. Breath sounds: No wheezing, rhonchi or rales. Abdominal: General: Abdomen is flat. There is no distension. Tenderness: There is no abdominal tenderness. There is no guarding. Musculoskeletal: Cervical back: Neck supple. Right lower leg: No edema. Left lower leg: No edema. Skin: General: Skin is warm and dry. Capillary Refill: Capillary refill takes less than 2 seconds. Findings: No rash. Neurological: Mental Status: He is alert and oriented to person, place, and time. Mental status is at baseline. Psychiatric: Mood and Affect: Mood normal. 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 Rate 87. Rhythm normal sinus. [place]aine normal. Intervals CT 129. QRS 109. QTc 404. Patient has no obvious ST segment changes concerning for ME but there is mild ST segment depression in V3 and V4. No arrhythmia seen. LABORATORY STUDIES: Results for orders placed or performed during the hospital encounter of 07/07/23 CBC W/DIFF AUTOMATED Result Value Ref Range WBC 16.16 (H) 4.4 - 11.0 x10'3/uL RBC 4.50 - 5.90 x10'6/uL COLD AGGLUTININ PRESENT. WARM SALINE REPLACEMENT PROCEDURE USED, MAW HGB 8.3 (L) 14.0 - 17.5 G/DL HCT 25.0 (L) 41.5 - 50.4 % MCV 101.6 (H) 80.0 - 96.0 FL MCH 33.7 (H) 26.5 - 31.4 PG MCHC 33.2 31.9 - 34.8 G/DL RDW 14.6 (H) 12.3 - 14.3 % PLT 133 (L) 151 - 353 x10'3/uL MPV 13.4 (H) 9.7 - 11.9 FL RBC MORPHOLOGY NORMAL PLT MORPH. NORMAL WBC MORPHOLOGY NORMAL LYMPHOCYTES 11.5 (L) 15.8 - 45.0 % NEUTROPHILS 83.1 (H) 42.1 - 71.9 % MONOCYTES 4.0 (L) 5.7 - 12.5 % EOSINOPHILS 0.1 0.0 - 5.6 % BASOPHILS 0.2 0.0 - 1.3 % ABS. NEUTROPHILS 13.44 (H) 1.40 - 6.00 x10'3/uL IMMATURE GRANS 1.1 (H) 0.0 - 0.5 % ABS. LYMPHOCYTES 1.86 0.80 - 4.70 x10'3/uL COMPREHENSIVE METABOLIC PANEL Result Value Ref Range GLUCOSE 117 (H) 70 - 99 MG/DL BUN 22 (H) 7 - 18 MG/DL CREATININE S/P/B 1.17 0.7 - 1.3 MG/DL SODIUM S/P/B 132 (L) 136 - 145 MMOL/L POTASSIUM S/P/B 4.2 3.5 - 5.1 MMOL/L CHLORIDE S/P/B 97 (L) 100 - 108 MMOL/L CO2 26.5 21 - 32 MMOL/L CALCIUM S/P/B 8.3 (L) 8.5 - 10.1 MG/DL BILIRUBIN TOTAL S/P/B 3.8 (H) 0.2 - 1.2 MG/DL TOTAL PROTEIN S/P/B 6.6 6.4 - 8.2 G/DL ALBUMIN S/P/B 3.5 3.4 - 5.0 G/DL AST 41 (H) 15 - 37 U/L ALT 20 16 - 60 U/L ALKALINE PHOSPHATASE S/P/B 83 50 - 136 U/L ANION GAP 8.5 5 - 15 MMOL/L BUN CREATININE RATIO 18.8 6 - 26 A/G RATIO 1.1 1.0 - 2.0 RATIO GFR ESTIMATE 64 (L) >90 ML/MIN/1.73 M2 TROPONIN, QUANT Result Value Ref Range TROPONIN I HIGH SENSITIVITY 15 <76 ng/L LACTIC ACID - SINGLE Result Value Ref Range LACTIC ACID VENOUS 1.1 0.4 - 2.0 MMOL/L URINALYSIS, AUTO, COMPLETE Result Value Ref Range COLOR (U) DARK YELLOW TRANSPARENCY CLEAR SPECIFIC GRAVITY (U) 1.015 1.000 - 1.030 U PH 6.5 5.0 - 9.0 LEUKOCYTES (U) NEGATIVE NEGATIVE NITRITES NEGATIVE NEGATIVE PROTEIN RANDOM (U) 1+ (A) NEGATIVE GLUCOSE (U) NEGATIVE NEGATIVE KETONES (U) TRACE (A) NEGATIVE BILIRUBIN (U) NEGATIVE NEGATIVE BLOOD (U) 2+ (A) NEGATIVE WBC/HPF 0-5 0 - 5 /HPF RBC/HPF 0-5 0 - 5 /HPF EPI/HPF FEW /HPF CULTURE & SENSITIVITY INDICATED? CULTURE IS NOT INDICATED OCCULT BLOOD, FECES Result Value Ref Range OCCULT BLOOD FECAL NEGATIVE NEGATIVE IMAGING STUDIES CT CHEST+ABD+PEL W CON Final Result by User, [id number] (07/06 2117) INDICATION: sepsis without a source; fever of unknown origin, nausea, emesis; history of bladder cancer and leukemia COMPARISON: None TECHNIQUE: CT images of the chest, abdomen, and pelvis were obtained following the administration of IV contrast. Radiation dose reduction technique utilized. FINDINGS: CHEST: Cardiac chambers within normal size limits. Moderate coronary atherosclerosis. No significant pericardial effusion. Nonaneurysmal thoracic aorta exhibits atherosclerosis. Pulmonary trunk diameter within normal limits. Coarse calcifications in mediastinal and bilateral hilar lymph nodes; this can be seen with antecedent granulomatous disease as well as posttreatment lymphoma. Other prominent mediastinal lymph nodes are not enlarged by size criteria. No axillary lymphadenopathy. No suspicious thyroid nodule. Esophagus within normal limits. Trachea and central airways are patent. No pneumothorax. Scattered patchy groundglass opacities present in the right upper and lower lobes and to a lesser degree in right middle and left lower lobes. Questionable similar focus in anterior left apex. Benign calcified pulmonary granulomata. No pleural effusion. ABDOMEN/PELVIS: Scattered benign calcified granulomata in the hepatic and splenic parenchyma. Normal size liver. No suspicious hepatic lesion. Cholecystectomy. Main portal vein, splenic vein, SMV, and SMA enhance. Atherosclerosis of the abdominal and pelvic vasculature. No retroperitoneal lymphadenopathy. No evidence of bowel obstruction or inflammation. Normal appearing appendix. No free gas in the abdomen or pelvis. No mesenteric lymphadenopathy. Stomach within normal limits. Incidental note of a small duodenal diverticulum. Mild splenomegaly, measuring 14.0 cm. Incidental note of a small splenule. Pancreas within normal limits. Adrenal glands within normal limits. Kidneys enhance symmetrically. Possible partial nephrectomy/ablation of the inferior pole of the left kidney. Benign-appearing bilateral renal cystic foci for which no further follow-up is recommended. 0.3 cm nonobstructing calculus in the inferior pole of the left kidney. No hydronephrosis or hydroureter. Bladder within normal limits for degree of distention. Top normal size prostate, minimally contours the bladder trigone. Seminal vesicles within normal limits. Incidental note of benign pelvic phleboliths. No pelvic lymphadenopathy or significant free fluid. Small bilateral fat-containing inguinal hernias without evidence of complication. Possible the vasectomy clip on the right. MSK: Chronic degenerative changes of the hips, pubic symphysis, and sacroiliac joints. Nonspecific small sclerotic foci in the right femoral head may represent benign bone islands, though other etiologies are not excluded. Chronic multilevel degenerative changes of the spine. Visualized body wall exhibits no acute abnormality. IMPRESSION: 1. Findings compatible with bilateral multifocal pneumonia; findings most pronounced in the right upper and lower lobes. Pattern suggests atypical/viral pneumonia. 2. Mild splenomegaly. 3. Possible partial nephrectomy versus ablation of the inferior pole of the left kidney. 4. 0.3 cm nonobstructing left renal calculus. 5. Coarse calcifications in mediastinal and bilateral hilar lymph nodes; this can be seen with antecedent granulomatous disease as well as posttreatment lymphoma. Benign calcified pulmonary granulomata and granulomata in the hepatic/splenic parenchyma as evidence for antecedent granulomatous disease. 6. Other chronic/nonurgent findings, as above. Referred By: Interpreted By: Yunior Traore MD, 07/07/2023 8:56 PM XR CHEST PA+LAT Final Result by User, [id number] (07/06 1637) 07/07/2023, 1614 hours. HISTORY: Cough. Intermittent fevers. Abdominal pain. EXAM: PA and lateral chest. Correlation to study 06/08/2020. FINDINGS: Postinflammatory calcifications are present with calcified granulomata in the lungs and calcified lymph nodes. There is some minimal linear atelectasis or fibrosis posterior laterally in the left lung base. The remainder the lungs are clear. The heart size is within normal limits. No vascular congestion. No pleural effusion. No pneumothorax. Anterior bridging osteophytes lower thoracic spine. IMPRESSION: Minimal linear infiltrate atelectasis or fibrosis left lower lung. Ordered By: RODRÍGUEZ GAINES Interpreted By: Tahir Velazquez MD, 07/07/2023 4:28 PM ED Course / Medical Decision Making Ddx: Dehydration, electrolyte abnormality, urinary tract infection, pneumonia, intra-abdominal infection, viral syndrome Patient is a 77-year-old male with a past medical history of anemia, chronic lymphocytic leukemia, GERD, status post cholecystectomy who presents with near syncope. On arrival vitals were within normal limits. On exam patient is well- appearing. Above differentials were considered and labs were obtained. Initially EKG was obtained which showed some mild nonspecific ST depression in V3 V4. That being said no AV jose alfredo block was seen. No arrhythmia was seen. There is no findings of Brugada or hypertrophic obstructive cardiomyopathy. Additionally patient's troponin was negative. While patient initially came in with a chief complaint of near syncope it appears that patient's issue is that he has been having fevers over the last few days with a cough. He denies feeling short of breath. His labs show a white count of 16.16 concerning for sepsis. His immature granulocytes wereelevated. He already has had COVID and flu test which are negative. Patient's CMP was largely within normal limits. Patient's troponin was 15. Lactic acid was 1.1. Urinalysis does not show septic source. Given that patient was reporting some brown vomit occult blood in stool was performed and was negative. Patient was started on 30 mL/kg of IV fluids as well as Zofran and Tylenol. Given sepsis source andimmunocompromise state given chronic lymphocytic leukemia I thought it would be prudent to admit patient for blood cultures and start patient on antibiotics. When I contacted hospitalist they are requesting CT of the chest abdomen pelvis with IV contrast to look for septic source. At this point patient was signed out to oncoming physician with plan to follow-up on imaging. On sepsis reevaluation patient is doing well. He appears to be perfusing well. He is not confused. He has good cap refill distally. Patient was signed out to oncoming physician with plan to follow-up on imaging and likely ad dory Clinical Impression Fever (Primary) Dizziness Near syncope Cough Disposition: Admit Rodríguez Gaines MD 07/07/232151 * Nandini Crowell RN - 07/07/2023 3:24 PM CDT 77 year old male in with complaints of NV and intermittent fevers x 5 days. Patient was tested for covid and influenza yesterday but both were negative. Patient states his sputum is brown in color. Patient states he experiences abdominal pain when coughing. Patient alert and oriented. Patient had anear syncopal episode yesterday at home. documented in this encounter Plan of Treatment Not on file documented as of this encounter Procedures Procedure Name Priority Date/Time Associated Diagnosis Comments LDH, LACTATE DEHYDROGENASE Routine 07/09/2023 11:20 AM CDT PROCALCITONIN (PCT) Routine 07/09/2023 7 :22 AM CDT BASIC METABOLIC PANEL Routine 07/09/2023 7:22 AM CDT BILIRUBIN TOTAL Routine 07/09/2023 7:22 AM CDT CBC W/DIFF AUTOMATED Routine 07/09/2023 7:22 AM CDT PROCALCITONIN (PCT) Routine 07/08/2023 8 :59 AM CDT BASIC METABOLIC PANEL Routine 07/08/2023 8:59 AM CDT PARTIAL THROMBOPLASTIN TIME,PTT Routine 07/08/2023 8:58 AM CDT PROTHROMBIN TIME, VENOUS Routine 07/08/2023 8:58 AM CDT CBC W/DIFF AUTOMATED Routine 07/08/2023 8:58 AM CDT MAGNESIUM Routine 07/08/2023 8:58 AM CDT RESPIRATORY PCR PANEL 2 Routine 07/08/19 1:[address] CHEST+ABD+PEL W CON STAT 8:08 PM CDT URINALYSIS, AUTO, COMPLETE STAT 07/07/2023 6:55 PM CDT OCCULT BLOOD, FECES STAT 07/07/2023 6 :39 PM CDT LACTIC ACID STAT 07/07/2023 6:39 PM CDT COMPREHENSIVE METABOLIC PANEL Routine 07/07/2023 4:45 PM CDT CBC W/DIFF AUTOMATED Routine 07/07/2023 4:45 PM CDT TROPONIN, QUANT Routine 07/07/2023 4:45 PM CDT XR CHEST PA+LAT STAT 07/07/2023 4:22 PM CDT CULTURE, BACTERIA, BLOOD STAT 07/07/2023 3:34 PM CDT ECG 12-LEAD Routine 07/07/2023 3:33 PM CDT CULTURE, BACTERIA, BLOOD STAT 07/07/2023 3:30 PM CDT documented in this encounter Results * (ABNORMAL) LDH, LACTATE DEHYDROGENASE (07/09/2023 11:20 AM CDT) LDH 487(H) 87 - 241 UNITS/L 07/09/2023 3:06 PM CDT [facility] 07/09/2023 11:2 0 AM CDT Magno Hollins APRN LABORATORY Final Result Performing Organization Address City/[facility]/ZIP Co de Phone Number [facility] [address] [place] [address], [place] [phone] * (ABNORMAL) BILIRUBIN TOTAL (07/09/2023 7:22 AM CDT) BILIRUBIN TOTAL S/P/B 2.2(H) 0.2 - 1.2 MG/DL 07/09/2023 1:18 PM CDT [facility] 07/09/2023 7:22 AM CDT Magno Hollins OUTREACH CLINICIAN LABORATORY Final Result Performing Organization Address City/[facility]/ZIP Co de Phone Number [facility] [address] [place] [address], [place] [phone] * (ABNORMAL) CBC W/DIFF AUTOMATED (07/09/2023 7:22 AM CDT) WBC 15.61(H) 4.4 - 11.0 x10'3/uL 07/09/2023 11:06 AM CDT [facility] RBC 2.03(L) 4.50 - 5.90 x10'6/uL 07/09/2023 11:06 AM CDT [facility] HGB 6.7(LL) 14.0 - 17.5 G/DL 07/09/2023 11:06 AM CDT [facility] Comment: ALERT VALUE CALLED TO AND READ BACK BY: LULI CHILDRESS @[id number],CD CALLED TO AND READ BACK BY LULI CHILDRESS USED SALINE REPLACMENT,CD HCT 21.2(L) 41.5 - 50.4 % 07/09/2023 11:06 AM CDT [facility] MCV 104.4(H) 80.0 - 96.0 FL 07/09/2023 11:06 AM CDT [facility] MCH 33.0(H) 26.5 - 31.4 PG 07/09/2023 11:06 AM CDT [facility] MCHC 31.6(L) 31.9 - 34.8 G/DL 07/09/2023 11:06 AM CDT [facility] RDW 15.7(H) 12.3 - 14.3 % 07/09/2023 11:06 AM CDT [facility] PLT 151 151 - 353 x10'3/uL 07/09/2023 12:29 PM CDT [facility] Comment: CALLED TO AND READ BACK BY LULI CHILDRESS @5990,CD CORRECTED ON 07/08 AT 1229: PREVIOUSLY REPORTED 68 MPV 12.9(H) 9.7 - 11.9 FL 07/09/2023 11:06 AM CDT [facility] NEUTROPHILS % 56.8 42.1 - 71.9 % 07/09/2023 12:33 PM CDT [facility] LYMPHOCYTES % 35.0 15.8 - 45.0 % 07/09/2023 12:33 PM CDT [facility] BASOPHILS 0.4 0.0 - 1.3 % 07/09/2023 12:33 PM CDT [facility] EOSINOPHILS 0.9 0.0 - 5.6 % 07/09/2023 12:33 PM CDT [facility] MONOCYTES % 5.4(L) 5.7 - 12.5 % 07/09/2023 12:33 PM CDT [facility] IMMATURE GRANS % 1.5(H) 0.0 - 0.5 % 07/09/2023 12:33 PM CDT [facility] ABS. NEUTROPHILS 8.87(H) 1.40 - 6.00 x10'3/uL 07/09/2023 12:33 PM CDT [facility] ABS. LYMPHOCYTES 5.46(H) 0.80 - 4.70 x10'3/uL 07/09/2023 12:33 PM CDT [facility] PLT MORPH. NORMAL 07/09/2023 12:33 PM CDT [facility] RBC MORPHOLOGY NORMAL 07/09/2023 12:33 PM CDT [facility] WBC MORPHOLOGY NORMAL 07/09/2023 12:33 PM T [facility] 07/09/2023 7:22 AM CDT us Magno Hollins OUTREACH CLINICIAN LABORATORY Edited Result - Final [facility] [address] [place] [id number], * (ABNORMAL) PROCALCITONIN (PCT) (07/09/2023 7:22 AM CDT) [facility] Procalcitonin 0.53(H) 0.00 - 0.25 NG/ML 07/09/2023 9:54 AM CDT [facility] Comment: PROCALCITONIN INTERPRETATION GUIDELINES LOWER RESPIRATORY TRACT INFECTIONS (LRTI): USE OF PCT IN INPATIENT OR EMERGENCY SITUATION INITIATION OF ANTIBIOTICS PCT VALUE ? INTERPRETATION <0.10 NG/ML ?ANTIBIOTIC THERAPY ? STRONGLY DISCOURAGED. 0.10-0.25 NG/ML ?ANTIBIOTIC THERAPY ? DISCOURAGED. 0.26-0.50 NG/ML ?ANTIBIOTIC THERAPY ? ENCOURAGED. >0.50 NG/ML ?ANTIBIOTIC THERAPY ? STRONGLY ENCOURAGED. DISCONTINUE ANTIBIOTICS PCT LESS THAN OR EQUAL TO 0.25 NG/ML OR DELTA PCT >80 PERCENT DELTA PCT= PCT(PEAK)-PCT(CURRENT)/PCT(PEAK)X100% STUDIES HAVE EVALUATED PCT PROTOCOLS IN THESE PATIENTS AND FOUND THAT FOR PATIENTS WHO ARE CLINICALLY STABLE AND ARE TREATED AT THE ED OR ARE HOSPITALIZED, THE INITIATION OF ANTIBIOTIC THERAPY SHOULD BE BASED ON CLINICAL GROUNDS AND A PCT VALUE OF GREATER THAN OR EQUAL TO 0.26 NG/ML. IF PCT REMAINS LOWER, ANTIBIOTICS CAN BE WITHHELD AND PATIENTS CAN BE REASSESSED CLINICALLY WITHOUT SAFETY CONCERNS. IF PATIENTS ARE CLINICALLY STABLE, AN ALTERNATIVE DIAGNOSIS SHOULD BE CONSIDERED. IF PATIENTS ARE UNSTABLE, THEN ANTIBIOTICS MAY BE CONSIDERED. IF PATIENTS DO NOT IMPROVE IN THE SHORT FOLLOW UP PERIOD OF 6 TO 12 HOURS, CLINICAL RE-EVALUATION AND RE-MEASUREMENT OF PCT IS RECOMMENDED. 07/09/2023 7:22 AM CDT Magno Hollins OUTREACH CLINICIAN LABORATORY Final Result [facility] [address] [place] [address], * (ABNORMAL) BASIC METABOLIC PANEL (07/09/2023 7:22 AM CDT) [facility] GLUCOSE 90 70 - 99 MG/DL 07/09/2023 8:11 AM CDT [facility] BUN 18 7 - 18 MG/DL 07/09/2023 8:11 AM CDT [facility] CREATININE S/P/B 1.01 0.7 - 1.3 MG/DL 07/09/2023 8:11 AM CDT [facility] SODIUM S/P/B 138 136 - 145 MMOL/L 07/09/2023 8:11 AM T [facility] POTASSIUM S/P/B 4.5 3.5 - 5.1 MMOL/L 07/09/2023 8:11 AM T [facility] CHLORIDE S/P/B 103 100 - 108 MMOL/L 07/09/2023 8:11 AM T [facility] CO2 28.0 21 - 32 MMOL/L 07/09/2023 8:11 AM T [facility] CALCIUM S/P/B 8.0(L) 8.5 - 10.1 MG/DL 07/09/2023 8:11 AM T [facility] ANION GAP 7.0 5 - 15 MMOL/L 07/09/2023 8:11 AM T [facility] BUN CREATININE RATIO 17.8 6 - 26 07/09/2023 8:11 AM T [facility] GFR ESTIMATE 77(L) >90 ML/MIN/1.7 3 M2 07/09/2023 8:11 AM T [facility] Comment: NOTE: eGFR is not calculated for patients <18 years of age. This is an estimated GFR calculation using the new CKD EPI creatinine equation without race and so does not require a correction factor for race. This estimated GFR should not be used for calculating drug doses. 07/09/2023 7:22 AM CDT Magno Hollins OUTREACH CLINICIAN LABORATORY Final Result [facility] [address] [place] [address], * (ABNORMAL) PROCALCITONIN (PCT) (07/08/2023 8:59 AM CDT) [facility] Procalcitonin 0.33(H) 0.00 - 0.25 NG/ML 07/08/2023 10:30 AM CDT [facility] Comment: PROCALCITONIN INTERPRETATION GUIDELINES LOWER RESPIRATORY TRACT INFECTIONS (LRTI): USE OF PCT IN INPATIENT OR EMERGENCY SITUATION INITIATION OF ANTIBIOTICS PCT VALUE ? INTERPRETATION <0.10 NG/ML ?ANTIBIOTIC THERAPY ? STRONGLY DISCOURAGED. 0.10-0.25 NG/ML ?ANTIBIOTIC THERAPY ? DISCOURAGED. 0.26-0.50 NG/ML ?ANTIBIOTIC THERAPY ? ENCOURAGED. >0.50 NG/ML ?ANTIBIOTIC THERAPY ? STRONGLY ENCOURAGED. DISCONTINUE ANTIBIOTICS PCT LESS THAN OR EQUAL TO 0.25 NG/ML OR DELTA PCT >80 PERCENT DELTA PCT= PCT(PEAK)-PCT(CURRENT)/PCT(PEAK)X100% STUDIES HAVE EVALUATED PCT PROTOCOLS IN THESE PATIENTS AND FOUND THAT FOR PATIENTS WHO ARE CLINICALLY STABLE AND ARE TREATED AT THE ED OR ARE HOSPITALIZED, THE INITIATION OF ANTIBIOTIC THERAPY SHOULD BE BASED ON CLINICAL GROUNDS AND A PCT VALUE OF GREATER THAN OR EQUAL TO 0.26 NG/ML. IF PCT REMAINS LOWER, ANTIBIOTICS CAN BE WITHHELD AND PATIENTS CAN BE REASSESSED CLINICALLY WITHOUT SAFETY CONCERNS. IF PATIENTS ARE CLINICALLY STABLE, AN ALTERNATIVE DIAGNOSIS SHOULD BE CONSIDERED. IF PATIENTS ARE UNSTABLE, THEN ANTIBIOTICS MAY BE CONSIDERED. IF PATIENTS DO NOT IMPROVE IN THE SHORT FOLLOW UP PERIOD OF 6 TO 12 HOURS, CLINICAL RE-EVALUATION AND RE-MEASUREMENT OF PCT IS RECOMMENDED. 07/08/2023 8:59 AM CDT Magno Naqvi Alyssa OUTREACH CLINICIAN LABORATORY Final Result [facility] [address] [place] [address], * (ABNORMAL) BASIC METABOLIC PANEL (07/08/2023 8:59 AM CDT) Pathologist [facility] GLUCOSE 118(H) 70 - 99 MG/DL 07/08/2023 9:59 AM CDT [facility] BUN 17 7 - 18 MG/DL 07/08/2023 9:59 AM CDT [facility] CREATININE S/P/B 0.99 0.7 - 1.3 MG/DL 07/08/2023 9:59 AM CDT [facility] SODIUM S/P/B 136 136 - 145 MMOL/L 07/08/2023 9:59 AM T [facility] POTASSIUM S/P/B 4.8 3.5 - 5.1 MMOL/L 07/08/2023 9:59 AM CDT [facility] CHLORIDE S/P/B 103 100 - 108 MMOL/L 07/08/2023 9:59 AM CDT [facility] CO2 26.3 21 - 32 MMOL/L 07/08/2023 9:59 AM CDT [facility] CALCIUM S/P/B 7.9(L) 8.5 - 10.1 MG/DL 07/08/2023 9:59 AM CDT [facility] ANION GAP 6.7 5 - 15 MMOL/L 07/08/2023 9:59 AM CDT [facility] BUN CREATININE RATIO 17.2 6 - 26 07/08/2023 9:59 AM CDT [facility] GFR ESTIMATE 78(L) >90 ML/MIN/1.7 3 M2 07/08/2023 9:59 AM CDT [facility] Comment: NOTE: eGFR is not calculated for patients <18 years of age. This is an estimated GFR calculation using the new CKD EPI creatinine equation without race and so does not require a correction factor for race. This estimated GFR should not be used for calculating drug doses. 07/08/2023 8:59 AM CDT Magno Hollins APRN LABORATORY Final Result [facility] [address] [place] [address], * MAGNESIUM (07/08/2023 8:58 AM CDT) MAGNESIUM 1.8 1.8 - 2.4 MG/DL 07/08/2023 9:58 AM CDT [facility] 07/08/2023 8:58 AM CDT Jayshree Bal MD LABORATORY Final Result [facility] [address] [place] [address], * PARTIAL THROMBOPLASTIN TIME,PTT (07/08/2023 8:58 AM CDT) PTT 30.4 27.0 - 36.8 SEC 07/08/2023 11:01 AM CDT [facility] [facility] 07/08/2023 8:58 AM CDT us Jayshree Bal MD LABORATORY Final Result Performing Organization Address [facility] Co de Phone Number [facility] [address] [place] [address], [place] [phone] * (ABNORMAL) PROTHROMBIN TIME, VENOUS (07/08/2023 8:58 AM CDT) PROTIME 13.8(H) 9.1 - 12.4 SEC 07/08/2023 11:01 AM CDT [facility] INR 1.2 07/08/2023 11:01 AM CDT [facility] Comment: Recommend INR ranges for Oral Anticoagulant Therapy: Mechanical Cardiac Values 2.5-3.5 All others indication 2.0-3.0 07/08/2023 8:58 AM CDT us Jayshree Bal MD LABORATORY Final Result Performing Organization Address [facility] Co de Phone Number [facility] [address] [place] [address], [place] [phone] * (ABNORMAL) CBC W/DIFF AUTOMATED (07/08/2023 8:58 AM CDT) WBC 17.00(H) 4.4 - 11.0 x10'3/uL 07/08/2023 2:16 PM CDT [facility] RBC 2.35(L) 4.50 - 5.90 x10'6/uL 07/08/2023 2:16 PM CDT [facility] HGB 7.9(L) 14.0 - 17.5 G/DL 07/08/2023 2:16 PM CDT [facility] HCT 24.9(L) 41.5 - 50.4 % 07/08/2023 2:16 PM CDT [facility] MCV 106.0(H) 80.0 - 96.0 FL 07/08/2023 2:16 PM CDT [facility] MCH 33.6(H) 26.5 - 31.4 PG 07/08/2023 2:16 PM CDT [facility] MCHC 31.7(L) 31.9 - 34.8 G/DL 07/08/2023 2:16 PM CDT [facility] RDW 15.5(H) 12.3 - 14.3 % 07/08/2023 2:16 PM CDT [facility] PLT 165 151 - 353 x10'3/uL 07/08/2023 2:16 PM T [facility] MPV 12.3(H) 9.7 - 11.9 FL 07/08/2023 2:16 PM CDT [facility] RBC MORPHOLOGY NORMAL 07/08/2023 2:16 PM T [facility] PLT MORPH. NORMAL 07/08/2023 2:16 PM T [facility] WBC MORPHOLOGY NORMAL 07/08/2023 2:16 PM CDT [facility] LYMPHOCYTES % 16.2 15.8 - 45.0 % 07/08/2023 2:16 PM CDT [facility] NEUTROPHILS % 77.7(H) 42.1 - 71.9 % 07/08/2023 2:16 PM CDT [facility] MONOCYTES % 4.8(L) 5.7 - 12.5 % 07/08/2023 2:16 PM CDT [facility] EOSINOPHILS 0.1 0.0 - 5.6 % 07/08/2023 2:16 PM CDT [facility] BASOPHILS 0.3 0.0 - 1.3 % 07/08/2023 2:16 PM CDT [facility] ABS. NEUTROPHILS 13.23(H) 1.40 - 6.00 x10'3/uL 07/08/2023 2:16 PM CDT [facility] IMMATURE GRANS % 0.9(H) 0.0 - 0.5 % 07/08/2023 2:16 PM CDT [facility] ABS. LYMPHOCYTES 2.75 0.80 - 4.70 x10'3/uL 07/08/2023 2:16 PM CDT [facility] 07/08/2023 8:58 AM CDT Jayshree Bal MD LABORATORY Final Result [facility] [address] [place] [address], * (ABNORMAL) RESPIRATORY PCR PANEL 2 (07/08/2023 1:50 AM CDT) ADENOVIRUS PCR (RESP) NOT DETECTED NOT DETECTED 07/08/2023 3:[address] [facility] CORONAVIRUS 229E PCR (RESP) NOT DETECTED NOT DETECTED 07/08/2023 3:[address] [facility] CORONAVIRUS HKU1 PCR (RESP) NOT DETECTED NOT DETECTED 07/08/2023 3:[address] [facility] CORONAVIRUS NL63 PCR (RESP) NOT DETECTED NOT DETECTED 07/08/2023 3:[address] [facility] CORONAVIRUS OC43 PCR (RESP) NOT DETECTED NOT DETECTED 07/08/2023 3:[address] [facility] METAPNEUMOVIRUS PCR (RESP) DETECTED(A) NOT DETECTED 07/08/2023 3:[address] [facility] RHINOVIRUS/ENTEROV IRUS PCR (RESP) NOT DETECTED NOT DETECTED 07/08/2023 3:[address] [facility] INFLUENZA A PCR (RESP) NOT DETECTED NOT DETECTED 07/08/2023 3:[address] [facility] INFLUENZA B PCR (RESP) NOT DETECTED NOT DETECTED 07/08/2023 3:[address] [facility] PARAINFLUENZA 1 PCR (RESP) NOT DETECTED NOT DETECTED 07/08/2023 3:[address] [facility] PARAINFLUENZA 2 PCR (RESP) NOT DETECTED NOT DETECTED 07/08/2023 3:[address] [facility] PARAINFLUENZA 3 PCR (RESP) NOT DETECTED NOT DETECTED 07/08/2023 3:[address] [facility] PARAINFLUENZA 4 PCR (RESP) NOT DETECTED NOT DETECTED 07/08/2023 3:[address] [facility] RSV PCR (RESP) NOT DETECTED NOT DETECTED 07/08/2023 3:[address] [facility] B PARAPERTUSIS PCR (RESP) NOT DETECTED NOT DETECTED 07/08/2023 3:[address] [facility] BORDETELLA PERTUSSIS PCR (RESP) NOT DETECTED NOT DETECTED 07/08/2023 3:[address] [facility] CHLAMYDOPHILA PNEUMONIAE PCR (RESP) NOT DETECTED NOT DETECTED 07/08/2023 3:[address] [facility] MYCOPLASMA PNEUMONIAE PCR (RESP) NOT DETECTED NOT DETECTED 07/08/2023 3:[address] [facility] CORONAVIRUS SARS COV 2 PCR (RESP) NOT DETECTED NOT DETECTED 07/08/2023 3:02 PM CDT [facility] NASOPHARYNGEAL SWAB / Unknown 07/08/2023 1:50 AM CDT Jayshree Bal MD MICROBIOLOGY - GENERAL ORDERABL ES Final Result [facility] [address] [place] [address], * CT CHEST+ABD+PEL W CON (07/07/2023 8:08 PM CDT) Anatomical Region Laterality Modality Chest, Abdomen, Pelvis Computed Tomography 07/07/2023 8:56 PM CDT Impressions 07/07/2023 9:13 PM CDT IMPRESSION: 1. ??Findings compatible with bilateral multifocal pneumonia; findings most pronounced in the right upper and lower lobes. Pattern suggests atypical/viral pneumonia. 2. ??Mild splenomegaly. 3. ??Possible partial nephrectomy versus ablation of the inferior pole of the left kidney. 4. ??0.3 cm nonobstructing left renal calculus. 5. ??Coarse calcifications in mediastinal and bilateral hilar lymph nodes; this can be seen with antecedent granulomatous disease as well as posttreatment lymphoma. Benign calcified pulmonary granulomata and granulomata in the hepatic/splenic parenchyma as evidence for antecedent granulomatous disease. 6. ??Other chronic/nonurgent findings, as above. Referred By: ?? Interpreted By: Yunior Traore MD, 07/07/2023 8:56 PM Narrative 07/07/2023 9:13 PM CDT INDICATION: sepsis without a source; fever of unknown origin, nausea, emesis; history of bladder cancer and leukemia COMPARISON: None TECHNIQUE: CT images of the chest, abdomen, and pelvis were obtained following the administration of IV contrast. Radiation dose reduction technique utilized. FINDINGS: CHEST: Cardiac chambers within normal size limits. Moderate coronary atherosclerosis. No significant pericardial effusion. Nonaneurysmal thoracic aorta exhibits atherosclerosis. Pulmonary trunk diameter within normal limits. Coarse calcifications in mediastinal and bilateral hilar lymph nodes; this can be seen with antecedent granulomatous disease as well as posttreatment lymphoma. Other prominent mediastinal lymph nodes are not enlarged by size criteria. No axillary lymphadenopathy. No suspicious thyroid nodule. Esophagus within normal limits. Trachea and central airways are patent. No pneumothorax. Scattered patchy groundglass opacities present in the right upper and lower lobes and to a lesser degree in right middle and left lower lobes. Questionable similar focus in anterior left apex. Benign calcified pulmonary granulomata. No pleural effusion. ABDOMEN/PELVIS: Scattered benign calcified granulomata in the hepatic and splenic parenchyma. Normal size liver. No suspicious hepatic lesion. Cholecystectomy. Main portal vein, splenic vein, SMV, and SMA enhance. Atherosclerosis of the abdominal and pelvic vasculature. No retroperitoneal lymphadenopathy. No evidence of bowel obstruction or inflammation. Normal appearing appendix. No free gas in the abdomen or pelvis. No mesenteric lymphadenopathy. Stomach within normal limits. Incidental note of a small duodenal diverticulum. Mild splenomegaly, measuring 14.0 cm. Incidental note of a small splenule. Pancreas within normal limits. Adrenal glands within normal limits. Kidneys enhance symmetrically. Possible partial nephrectomy/ablation of the inferior pole of the left kidney. Benign-appearing bilateral renal cystic foci for which no further follow-up is recommended. 0.3 cm nonobstructing calculus in the inferior pole of the left kidney. No hydronephrosis or hydroureter. Bladder within normal limits for degree of distention. Top normal size prostate, minimally contours the bladder trigone. Seminal vesicles within normal limits. Incidental note of benign pelvic phleboliths. No pelvic lymphadenopathy or significant free fluid. Small bilateral fat-containing inguinal hernias without evidence of complication. Possible the vasectomy clip on the right. MSK: Chronic degenerative changes of the hips, pubic symphysis, and sacroiliac joints. Nonspecific small sclerotic foci in the right femoral head may represent benign bone islands, though other etiologies are not excluded. Chronic multilevel degenerative changes of the spine. Visualized body wall exhibits no acute abnormality. Procedure Note Yunior Traore MD - 07/07/2023 INDICATION: sepsis without a source; fever of unknown origin, nausea,emesis; history of bladder cancer and leukemia COMPARISON: None TECHNIQUE: CT images of the chest, abdomen, and pelvis were obtainedfollowing the administration of IV contrast. Radiation dose reductiontechnique utilized. FINDINGS: CHEST: Cardiac chambers within normal size limits. Moderate coronaryatherosclerosis. No significant pericardial effusion. Nonaneurysmalthoracic aorta exhibits atherosclerosis. Pulmonary trunk diameter withinnormal limits. Coarse calcifications in mediastinal and bilateral hilar lymph nodes; thiscan be seen with antecedent granulomatous disease as well as posttreatmentlymphoma. Other prominent mediastinal lymph nodes are not enlarged by sizecriteria. No axillary lymphadenopathy. No suspicious thyroid nodule. Esophagus within normal limits. Trachea and central airways are patent. No pneumothorax. Scattered patchygroundglass opacities present in the right upper and lower lobes and to alesser degree in right middle and left lower lobes. Questionable similarfocus in anterior left apex. Benign calcified pulmonary granulomata. Nopleural effusion. ABDOMEN/PELVIS: Scattered benign calcified granulomata in the hepatic and splenicparenchyma. Normal size liver. No suspicious hepatic lesion.Cholecystectomy. Main portal vein, splenic vein, SMV, and SMA enhance. Atherosclerosis of the abdominal and pelvic vasculature. Noretroperitoneal lymphadenopathy. No evidence of bowel obstruction or inflammation. Normal appearingappendix. No free gas in the abdomen or pelvis. No mesentericlymphadenopathy. Stomach within normal limits. Incidental note of a small duodenaldiverticulum. Mild splenomegaly, measuring 14.0 cm. Incidental note of asmall splenule. Pancreas within normal limits. Adrenal glands withinnormal limits. Kidneys enhance symmetrically. Possible partial nephrectomy/ablation ofthe inferior pole of the left kidney. Benign-appearing bilateral renalcystic foci for which no further follow-up is recommended. 0.3 cmnonobstructing calculus in the inferior pole of the left kidney. Nohydronephrosis or hydroureter. Bladder within normal limits for degree of distention. Top normal sizeprostate, minimally contours the bladder trigone. Seminal vesicles withinnormal limits. Incidental note of benign pelvic phleboliths. No pelviclymphadenopathy or significant free fluid. Small bilateral fat-containing inguinal hernias without evidence ofcomplication. Possible the vasectomy clip on the right. MSK: Chronic degenerative changes of the hips, pubic symphysis, and sacroiliacjoints. Nonspecific small sclerotic foci in the right femoral head may representbenign bone islands, though other etiologies are not excluded. Chronic multilevel degenerative changes of the spine. Visualized body wall exhibits no acute abnormality. IMPRESSION: 1. Findings compatible with bilateral multifocal pneumonia; findings mostpronounced in the right upper and lower lobes. Pattern suggestsatypical/viral pneumonia. 2. Mild splenomegaly. 3. Possible partial nephrectomy versus ablation of the inferior pole ofthe left kidney. 4. 0.3 cm nonobstructing left renal calculus. 5. Coarse calcifications in mediastinal and bilateral hilar lymph nodes;this can be seen with antecedent granulomatous disease as well asposttreatment lymphoma. Benign calcified pulmonary granulomata andgranulomata in the hepatic/splenic parenchyma as evidence for antecedentgranulomatous disease. 6. Other chronic/nonurgent findings, as above. Referred By: Interpreted By: Yunior Traore MD, 07/07/2023 8:56 PM us Rodríguez Gaines MD CT Final R esult * (ABNORMAL) URINALYSIS, AUTO, COMPLETE (07/07/2023 6:55 PM CDT) COLOR (U) DARK YELLOW 07/07/2023 7:20 PM CDT [facility] TRANSPARENCY CLEAR 07/07/2023 7:20 PM CDT [facility] SPECIFIC GRAVITY (U) 1.015 1.000 - 1.030 07/07/2023 7:20 PM CDT [facility] U PH 6.5 5.0 - 9.0 07/07/2023 7:20 PM CDT [facility] LEUKOCYTES (U) NEGATIVE NEGATIVE 07/07/2023 7:20 PM T [facility] NITRITES NEGATIVE NEGATIVE 07/07/2023 7:20 PM CDT [facility] PROTEIN RANDOM (U) 1+(A) NEGATIVE 07/07/2023 7:20 PM CDT [facility] GLUCOSE (U) NEGATIVE NEGATIVE 07/07/2023 7:20 PM T [facility] KETONES MG/DL (U) TRACE(A) NEGATIVE 07/07/2023 7:20 PM CDT [facility] BILIRUBIN (U) NEGATIVE NEGATIVE 07/07/2023 7:20 PM CDT [facility] BLOOD (U) 2+(A) NEGATIVE 07/07/2023 7:20 PM CDT [facility] WBC/HPF 0-5 0 - 5 /HPF 07/07/2023 7:20 PM CDT [facility] RBC/HPF 0-5 0 - 5 /HPF 07/07/2023 7:20 PM CDT [facility] EPI/HPF FEW /HPF 07/07/2023 7:20 PM CDT [facility] CULTURE & SENSITIVITY INDICATED? CULTURE IS NOT INDICATED 07/07/2023 7:20 PM CDT [facility] URINE SPECIMEN OBTAINED BY CLEAN CATCH PROCEDURE / Unknown 07/07/2023 6:55 PM CDT Rodríguez Gaines MD URINE ORDERABLES Final Result [facility] [address] [place] [address], [place] [phone] * OCCULT BLOOD, FECES (07/07/2023 6:39 PM CDT) OCCULT BLOOD FECAL NEGATIVE NEGATIVE 07/07/2023 6:57 PM CDT [facility] STOOL SPECIMEN / Unknown 07/07/2023 6:39 PM CDT Rodríguez Gaines MD BODY FLUIDS AND STOOLS ORDERABLES Final Result [facility] [address] [place] [address], [place] [phone] * LACTIC ACID - SINGLE (07/07/2023 6:39 PM CDT) [facility] LACTIC ACID VENOUS 1.1 0.4 - 2.0 MMOL/L 07/07/2023 7:08 PM CDT [facility] 07/07/2023 6:39 PM CDT Rodríguez Gaines MD LABORATORY Final R esult Performing Organization Address [facility] Co de Phone Number [facility] [address] [place] [address], [place] [phone] * TROPONIN, QUANT (07/07/2023 4:45 PM CDT) [facility] TROPONIN I HIGH SENSITIVITY 15 <76 ng/L 07/07/2023 5:24 PM CDT [facility] Comment: HIGH DOSES OF BIOTIN, TROPONIN-SPECIFIC AUTOANTIBODIES, AND ANTIBODY THERAPY CONTAINING HAMA MAY INTERFERE WITH THIS TEST RESULT. CORRELATION TO CLINICAL HISTORY AND PRESENTATION RECOMMENDED. 07/07/2023 4:45 PM CDT Rodríguez Gaines MD LABORATORY Final R esult Performing Organization Address [facility] Co de Phone Number [facility] [address] [place] [address], [place] [phone] * (ABNORMAL) COMPREHENSIVE METABOLIC PANEL (07/07/2023 4:45 PM CDT) [facility] GLUCOSE 117(H) 70 - 99 MG/DL 07/07/2023 5:24 PM CDT [facility] BUN 22(H) 7 - 18 MG/DL 07/07/2023 5:24 PM CDT [facility] CREATININE S/P/B 1.17 0.7 - 1.3 MG/DL 07/07/2023 5:24 PM CDT [facility] SODIUM S/P/B 132(L) 136 - 145 MMOL/L 07/07/2023 5:24 PM CDT [facility] POTASSIUM S/P/B 4.2 3.5 - 5.1 MMOL/L 07/07/2023 5:24 PM T [facility] CHLORIDE S/P/B 97(L) 100 - 108 MMOL/L 07/07/2023 5:24 PM T [facility] CO2 26.5 21 - 32 MMOL/L 07/07/2023 5:24 PM T [facility] CALCIUM S/P/B 8.3(L) 8.5 - 10.1 MG/DL 07/07/2023 5:24 PM T [facility] BILIRUBIN TOTAL S/P/B 3.8(H) 0.2 - 1.2 MG/DL 07/07/2023 5:[address] [facility] TOTAL PROTEIN S/P/B 6.6 6.4 - 8.2 G/DL 07/07/2023 5:24 PM T [facility] ALBUMIN S/P/B 3.5 3.4 - 5.0 G/DL 07/07/2023 5:[address] [facility] AST 41(H) 15 - 37 U/L 07/07/2023 5:[address] [facility] ALT 20 16 - 60 U/L 07/07/2023 5:[address] [facility] ALKALINE PHOSPHATASE S/P/B 83 50 - 136 U/L 07/07/2023 5:[address] [facility] ANION GAP 8.5 5 - 15 MMOL/L 07/07/2023 5:[address] [facility] BUN CREATININE RATIO 18.8 6 - 26 07/07/2023 5:[address] [facility] A/G RATIO 1.1 1.0 - 2.0 RATIO 07/07/2023 5:24 PM CDT [facility] GFR ESTIMATE 64(L) >90 ML/MIN/1.7 3 M2 07/07/2023 5:24 PM CDT [facility] Comment: NOTE: eGFR is not calculated for patients <18 years of age. This is an estimated GFR calculation using the new CKD EPI creatinine equation without race and so does not require a correction factor for race. This estimated GFR should not be used for calculating drug doses. 07/07/2023 4:45 PM CDT us Rodríguez Gaines MD LABORATORY Final R esult [facility] [address] [place] [address], [place] [phone] * (ABNORMAL) CBC W/DIFF AUTOMATED (07/07/2023 4:45 PM CDT) WBC 16.16(H) 4.4 - 11.0 x10'3/uL 07/07/2023 6:11 PM CDT [facility] RBC COLD AGGLUTININ PRESENT. WARM SALINE REPLACEMENT PROCEDURE USED, MAW 4.50 - 5.90 x10'6/uL 07/07/2023 6:11 PM CDT [facility] HGB 8.3(L) 14.0 - 17.5 G/DL 07/07/2023 6:11 PM CDT [facility] HCT 25.0(L) 41.5 - 50.4 % 07/07/2023 6:11 PM CDT [facility] MCV 101.6(H) 80.0 - 96.0 FL 07/07/2023 6:11 PM CDT [facility] MCH 33.7(H) 26.5 - 31.4 PG 07/07/2023 6:11 PM CDT [facility] MCHC 33.2 31.9 - 34.8 G/DL 07/07/2023 6:11 PM CDT [facility] RDW 14.6(H) 12.3 - 14.3 % 07/07/2023 6:11 PM T [facility] PLT 133(L) 151 - 353 x10'3/uL 07/07/2023 6:11 PM T [facility] MPV 13.4(H) 9.7 - 11.9 FL 07/07/2023 6:11 PM T [facility] RBC MORPHOLOGY NORMAL 07/07/2023 6:11 PM T [facility] PLT MORPH. NORMAL 07/07/2023 6:11 PM T [facility] WBC MORPHOLOGY NORMAL 07/07/2023 6:11 PM T [facility] LYMPHOCYTES % 11.5(L) 15.8 - 45.0 % 07/07/2023 6:12 PM T [facility] NEUTROPHILS % 83.1(H) 42.1 - 71.9 % 07/07/2023 6:12 PM T [facility] MONOCYTES % 4.0(L) 5.7 - 12.5 % 07/07/2023 6:12 PM T [facility] EOSINOPHILS 0.1 0.0 - 5.6 % 07/07/2023 6:12 PM T [facility] BASOPHILS 0.2 0.0 - 1.3 % 07/07/2023 6:12 PM T [facility] ABS. NEUTROPHILS 13.44(H) 1.40 - 6.00 x10'3/uL 07/07/2023 6:12 PM T [facility] IMMATURE GRANS % 1.1(H) 0.0 - 0.5 % 07/07/2023 6:12 PM CDT [facility] ABS. LYMPHOCYTES 1.86 0.80 - 4.70 x10'3/uL 07/07/2023 6:12 PM CDT [facility] 07/07/2023 4:45 PM CDT Rodríguez Gaines MD LABORATORY Final R esult [facility] [address] [place] [address], [place] [phone] * XR CHEST PA+LAT (07/07/2023 4:22 PM CDT) Anatomical Region Laterality Modality Chest Radiographic Leticia ging 07/07/2023 4:28 PM CDT Impressions 07/07/2023 4:34 PM CDT IMPRESSION: Minimal linear infiltrate atelectasis or fibrosis left lower lung. Ordered By: RODRÍGUEZ GAINES Interpreted By: Tahir Velazquez MD, 07/07/2023 4:28 PM Narrative 07/07/2023 4:34 PM CDT 07/07/2023, 1614 hours. HISTORY: Cough. Intermittent fevers. Abdominal pain. EXAM: PA and lateral chest. Correlation to study 06/08/2020. FINDINGS: Postinflammatory calcifications are present with calcified granulomata in the lungs and calcified lymph nodes. There is some minimal linear atelectasis or fibrosis posterior laterally in the left lung base. The remainder the lungs are clear. The heart size is within normal limits. No vascular congestion. No pleural effusion. No pneumothorax. Anterior bridging osteophytes lower thoracic spine. Procedure Note Tahir Velazquez MD - 07/07/2023 07/07/2023, 1614 hours. HISTORY: Cough. Intermittent fevers. Abdominal pain. EXAM: PA and lateral chest. Correlation to study 06/08/2020. FINDINGS: Postinflammatory calcifications are present with calcifiedgranulomata in the lungs and calcified lymph nodes. There is some minimallinear atelectasis or fibrosis posterior laterally in the left lung base.The remainder the lungs are clear. The heart size is within normal limits.No vascular congestion. No pleural effusion. No pneumothorax. Anteriorbridging osteophytes lower thoracic spine. IMPRESSION: Minimal linear infiltrate atelectasis or fibrosis left lower lung. Ordered By: RODRÍGUEZ GAINES Interpreted By: Tahir Velazquez MD, 07/07/2023 4:28 PM Rodríguez Gaines MD GENERAL IMAGING Final R esult * CULTURE, BACTERIA, BLOOD (07/07/2023 3:34 PM CDT) SPEC DESCRIPTION BLOOD 07/07/2023 6:21 PM CDT [facility] SPECIAL REQUESTS NO SPECIAL REQUEST 07/07/2023 6:21 PM CDT [facility] CULTURE RESULT NO GROWTH 6 DAYS 07/13/2023 7:[address] [facility] BLOOD SPECIMEN OBTAINED FOR BLOOD CULTURE / Unknown 07/07/2023 3:34 PM CDT 07/07/2023 6:34 PM CDT Rodríguez Gaines MD MICROBIOLOGY - GENERAL ORDERABLES Final Result [facility] [address] [place] [address], [place] [phone] [facility] [address] [place] [address], [place] [phone] * ECG 12 lead (07/07/2023 3:33 PM CDT) 07/07/2023 3:[address] [facility] RAD - 07/07/2023 5:22 PM CDT ?[place] [place] ? Test Date: ?2023-07-07 Pat Name: ? RICHARD PRINGLE ?Department: ?? 85 ? Room: ? TRA2 TR2 Gender: ? Male ? 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 : ?[id number] ? Requested By: RODRÍGUEZ MATTHEWSTIS Order Number: [id number] ? Reading MD: ?? Channing Sanchez ? Measurements Intervals ?[place] ? Rate: ? 87 ? P: ?51 CT: ? 129 ?QRS: ?34 QRSD: ? 109 ?T: ?-1 QT: ? 360 ? QTc: ?433 ? 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) RAD * CULTURE, BACTERIA, BLOOD (07/07/2023 3:30 PM CDT) SPEC DESCRIPTION BLOOD 07/07/2023 6:21 PM CDT [facility] SPECIAL REQUESTS NO SPECIAL REQUEST 07/07/2023 6:21 PM CDT [facility] CULTURE RESULT NO GROWTH 6 DAYS 07/13/2023 7:[address] [facility] BLOOD SPECIMEN OBTAINED FOR BLOOD CULTURE / Unknown 07/07/2023 3:30 PM CDT 07/07/2023 6:33 PM CDT us Rodríguez Gaines MD MICROBIOLOGY - GENERAL ORDERABLES Final Result [facility] [address] [place] [address], [place] [phone] [facility] [id number] [place] [address], [place] [phone] documented in this encounter Visit Diagnoses Diagnosis Pneumonia- Primary Pneumonia, organism unspecified Near syncope Syncope and collapse Bilateral pneumonia Pneumonia, organism unspecified documented in this encounter Admitting Diagnoses Diagnosis Pneumonia Pneumonia, organism unspecified documented in this encounter Administered Medications Inactive Administered Medications - up to 3 most recent administrations Medication Order MAR Action Action Date Dose Rate Site acetaminophen (TYLENOL) tablet 650 mg 650 mg, Oral, Once, 1 dose, On 07/07/23 at 1830, Maximum dose of acetaminophen is 4000 mg from all sources in 24 hours. Given 07/07/2023 6:34 PM CDT 650 mg acetaminophen (TYLENOL) tablet 650 mg 650 mg, Oral, Every 4 hours PRN, Mild pain (Scale 1 - 3), Fever, Discomfort, Moderate pain (Scale 4 - 7), Headaches, Starting on 07/08/23 at 0111, Until 07/09/23 at 1944, Maximum dose of acetaminophen is 4000 mg from all sources in 24 hours. Given 07/09/2023 9:05 AM CDT 650 mg Given 07/08/2023 8:03 PM CDT 650 mg Given 07/08/2023 2:21 PM CDT 650 mg albuterol sulfate HFA 108 (90 Base) MCG/ACT inhaler 2 puff 2 puff, Inhalation, Every 4 hours PRN, Wheezing, Shortness of breath, Starting on Mon07/08/23 at 0111, Until Mon07/09/23 at 1944 Given 07/09/2023 10:53 AM CDT 2 puffs azithromycin (ZITHROMAX) 500 mg in sodium chloride 0.9 % 250 mL IVPB 500 mg, Intravenous, at 250 mL/hr, Once, 1 dose, On Mon07/07/23 at 2130 New Bag 07/07/2023 9:40 PM CDT 500 mg 250 mL/hr azithromycin (ZITHROMAX) 500 mg in sodium chloride 0.9 % 250 mL IVPB 500 mg, Intravenous, at 250 mL/hr, Every 24 hours, 2 doses, First dose on Mon07/08/23 at 2130, Last dose on Mon07/09/23 at 2130 New Bag 07/08/2023 9:26 PM CDT 500 mg 250 mL/hr benzonatate (TESSALON) capsule 100 mg 100 mg, Oral, 3 times daily PRN, Cough, Starting on Mon07/08/23 at 0157, Until Mon07/09/23 at 1944 Given 07/09/2023 3:38 AM CDT 100 mg Given 07/08/2023 10:14 AM CDT 100 mg cefTRIAXone (ROCEPHIN) 1 g in sterile water 10 mL IV 1 g, Intravenous, at 120 mL/hr, Once, 1 dose, On Mon07/07/23 at 2130, Administer over at least 5 minutes. Given 07/07/2023 9:40 PM CDT 1 g 120 mL/hr cefTRIAXone (ROCEPHIN) 1 g in sterile water 10 mL IV 1 g, Intravenous, at 120 mL/hr, Every 24 hours, 7 doses, First dose on Mon07/08/23 at 2100, Last dose on Mon07/14/23 at 2100, Administer over at least 5 minutes. Given 07/08/2023 8:02 PM CDT 1 g 120 mL/hr enoxaparin (LOVENOX) 40 MG/0.4ML syringe 40 mg 40 mg, Subcutaneous, Nightly (enoxaparin), First dose on Mon07/08/23 at 2100, Until Discontinued, Administer by deep SubQ injection alternating between the left or right anterolateral and left or right posterolateral abdominal wall. Given 07/08/2023 8:02 PM CDT 40 mg Left Lower Abdomen famotidine (PEPCID) tablet 20 mg 20 mg, Oral, 2 times daily, First dose on 07/08/23 at 0130, Until Discontinued Given 07/09/2023 9:05 AM CDT 20 mg Given 07/08/2023 8:03 PM CDT 20 mg Given 07/08/2023 8:26 AM CDT 20 mg rblyuwpd-nadcgrwtcrrn-EUP 400 (ARTIFICIAL TEARS) 0.2-0.2-1 % ophthalmic solution 1 drop 1 drop, Both Eyes, As needed, Dry eyes, Starting on 07/08/23 at 1446, Until 07/09/23 at 1944 Given 07/08/2023 3:00 PM CDT 1 drop guaiFENesin (ROBITUSSIN) 100 MG/5ML solution 200 mg 200 mg, Oral, Every 4 hours PRN, Congestion, Starting on 07/08/23 at 0157, Until 07/08/23 at 1035 Given 07/08/2023 2:08 AM CDT 200 mg guaiFENesin ER (MUCINEX) 12 hr tablet 600 mg 600 mg, Oral, 2 times daily, First dose on 07/08/23 at 0900, Until Discontinued, Do not break, chew, or crush. Given 07/09/2023 9:05 AM CDT 600 mg Given 07/08/2023 8:03 PM CDT 600 mg Given 07/08/2023 10:14 AM CDT 600 mg guaiFENesin-codeine (guaiFENesin AC) 100-10 MG/5ML solution 5 mL 5 mL, Oral, Every 4 hours PRN, Congestion, Starting on 07/08/23 at 1035, Until 07/09/23 at 1944 Given 07/08/2023 9:35 PM CDT 5 mLs Given 07/08/2023 2:59 PM CDT 5 mLs iopamidol (ISOVUE-370) 76 % injection 75 mL 75 mL, Intravenous, IMG once as needed, Contrast, 1 dose, Starting on Mon07/07/23 at 2007, Until Mon07/07/23 at 2008 Given 07/07/2023 8:08 PM CDT 75 mLs Right Arm ondansetron (ZOFRAN) injection 4 mg 4 mg, Intravenous, Once, 1 dose, On Mon07/07/23 at 1830, IV push over 2-5 minutes. Given 07/07/2023 6:35 PM CDT 4 mg ondansetron (ZOFRAN) injection 4 mg 4 mg, Intravenous, Every 8 hours PRN, Nausea, Vomiting, Starting on 07/08/23 at 0111, Until 07/09/23 at 1944, IV push over 2-5 minutes. Given 07/08/2023 4:42 AM CDT 4 mg sodium chloride 0.9% bolus infusion 1,000 mL 1,000 mL, Intravenous, Administer over 60 Minutes, Bolus (Once), 1 dose, On Mon07/07/23 at 1830 New Bag 07/07/2023 6:34 PM CDT 1,000 mLs sodium chloride 0.9% bolus infusion 1,000 mL 1,000 mL, Intravenous, Administer over 60 Minutes, Once, 1 dose, On Mon07/07/23 at 1930 New Bag 07/07/2023 7:39 PM CDT 1,000 mLs sodium chloride 0.9% infusion at 75 mL/hr, Intravenous, Once, 1 dose, On Mon07/08/23 at 0130 New Bag 07/08/2023 1:51 AM CDT 75 mL/hr sodium chloride 0.9% infusion at 75 mL/hr, Intravenous, Continuous, Starting on Mon07/08/23 at 0845, Until 07/08/23 at 1035 New Bag 07/08/2023 10:14 AM CDT 75 mL/hr documented in this encounter Active and Recently Administered Medications Times are shown in CDT. Scheduled Medication Order 07/07/2023 07/08/2023 07/09/2023 acetaminophen (TYLENOL) tablet 650 mg (COMPLETED) 650 mg, Oral, Once, 1 dose, On Mon07/07/23 at 1830, Maximum dose of acetaminophen is 4000 mg from all sources in 24 hours. 1834 (Given - Provider: Josee Lepe RN) azithromycin (ZITHROMAX) 500 mg in sodium chloride 0.9 % 250 mL IVPB (COMPLETED) 500 mg, Intravenous, at 250 mL/hr, Once, 1 dose, On Mon07/07/23 at 2130 2140 (New Bag - Provider: Josee Lepe RN)2248 (Infusion Stop Time - Provider: Keshia Martinez RN) azithromycin (ZITHROMAX) 500 mg in sodium chloride 0.9 % 250 mL IVPB 500 mg, Intravenous, at 250 mL/hr, Every 24 hours, 2 doses, First dose on Mon07/08/23 at 2130, Last dose on Mon07/09/23 at 2130 2125 (New Bag - Provider: Hamida Gonzalez RN)223 (Infusion Stop Time - Provider: Hamida Gonzalez RN) cefTRIAXone (ROCEPHIN) 1 g in sterile water 10 mL IV (COMPLETED) 1 g, Intravenous, at 120 mL/hr, Once, 1 dose, On Mon07/07/23 at 2130, Administer over at least 5 minutes. 2139 (Given - Provider: Josee Lepe RN) cefTRIAXone (ROCEPHIN) 1 g in sterile water 10 mL IV 1 g, Intravenous, at 120 mL/hr, Every 24 hours, 7 doses, First dose on Mon07/08/23 at 2100, Last dose on Mon07/14/23 at 2100, Administer over at least 5 minutes. 2001 (Given - Provider: Hamida Gonzalez RN) enoxaparin (LOVENOX) 40 MG/0.4ML syringe 40 mg (CANCELED)(Linked Group 1) 40 mg, Subcutaneous, Nightly (enoxaparin), First dose on Mon07/08/23 at 2100, Until Discontinued, Administer by deep SubQ injection alternating between the left or right anterolateral and left or right posterolateral abdominal wall. 2001 (Given - Provider: Hamida Gonzalez RN) famotidine (PEPCID) tablet 20 mg 20 mg, Oral, 2 times daily, First dose on Mon07/08/23 at 0130, Until Discontinued 015 (Given - Provider: Edmund Finley III, RN)0826 (Given - Provider: Yanira Maradiaga, LULI)2002 (Given - Provider: Hamida Gonzalez RN) 09 (Given - Provider: Yanira Maradiaga RN) guaiFENesin ER (MUCINEX) 12 hr tablet 600 mg 600 mg, Oral, 2 times daily, First dose on 07/08/23 at 0900, Until Discontinued, Do not break, chew, or crush. 1014 (Given - Provider: Yanira Maradiaga, LULI)2002 (Given - Provider: Hamida Gonzalez, LULI) 904 (Given - Provider: Yanira Maradiaga, LULI) ondansetron (ZOFRAN) injection 4 mg (COMPLETED) 4 mg, Intravenous, Once, 1 dose, On Mon07/07/23 at 1830, IV push over 2-5 minutes. 183 (Given - Provider: Josee Lepe RN) sodium chloride 0.9% bolus infusion 1,000 mL (COMPLETED) 1,000 mL, Intravenous, Administer over 60 Minutes, Bolus (Once), 1 dose, On Mon07/07/23 at 1830 1834 (New Bag - Provider: Josee Lepe RN)1938 (Infusion Stop Time - Provider: Josee Lepe RN) sodium chloride 0.9% bolus infusion 1,000 mL (COMPLETED) 1,000 mL, Intravenous, Administer over 60 Minutes, Once, 1 dose, On Mon07/07/23 at 1930 1939 (New Bag - Provider: Josee Lepe RN)2034 (Infusion Stop Time - Provider: Josee Lepe RN) sodium chloride 0.9% infusion (COMPLETED) at 75 mL/hr, Intravenous, Once, 1 dose, On Mon07/08/23 at 0130 0151 (New Bag - Provider: Edmund Finley III, RN)0425 (Paused - Provider: Zully Mir, LULI)0442 (Infusion Stop Time - Provider: Zully Mir, LULI) Continuous Medication Order 07/07/2023 07/08/2023 07/09/2023 sodium chloride 0.9% infusion (CANCELED) at 75 mL/hr, Intravenous, Continuous, Starting on 07/08/23 at 0845, Until 07/08/23 at 1035 1014 (New Bag - Provider: Nico Maradiaga RN) PRN Medication Order 07/07/2023 07/08/2023 07/09/2023 acetaminophen (TYLENOL) tablet 650 mg 650 mg, Oral, Every 4 hours PRN, Mild pain (Scale 1 - 3), Fever, Discomfort, Moderate pain (Scale 4 - 7), Headaches, Starting on 07/08/23 at 0111, Until 07/09/23 at 1944, Maximum dose of acetaminophen is 4000 mg from all sources in 24 hours. 0405 (Given - Provider: Zully Mir RN)1421 (Given - Provider: Yanira Maradiaga RN)2002 (Given - Provider: Hamida Gonzalez RN) 0905 (Given - Provider: Yanira Maradiaga RN) albuterol sulfate HFA 108 (90 Base) MCG/ACT inhaler 2 puff 2 puff, Inhalation, Every 4 hours PRN, Wheezing, Shortness of breath, Starting on 07/08/23 at 0111, Until 07/09/23 at 1944 1053 (Given - Provider: Sherine Tavarez, ITZ) benzonatate (TESSALON) capsule 100 mg 100 mg, Oral, 3 times daily PRN, Cough, Starting on 07/08/23 at 0157, Until 07/09/23 at 1944 1014 (Given - Provider: Yanira Maradiaga RN) 0338 (Given - Provider: Hamida Gonzalez RN) xgzlimtc-rvxsprdhexqe-LN G 400 (ARTIFICIAL TEARS) 0.2-0.2-1 % ophthalmic solution 1 drop 1 drop, Both Eyes, As needed, Dry eyes, Starting on 07/08/23 at 1446, Until 07/09/23 at 1944 1500 (Given - Provider: Yanira Maradiaga RN) guaiFENesin (ROBITUSSIN) 100 MG/5ML solution 200 mg (CANCELED) 200 mg, Oral, Every 4 hours PRN, Congestion, Starting on 07/08/23 at 0157, Until 07/08/23 at 1035 0208 (Given - Provider: Edmund Finley III, RN) guaiFENesin-codeine (guaiFENesin AC) 100-10 MG/5ML solution 5 mL 5 mL, Oral, Every 4 hours PRN, Congestion, Starting on 07/08/23 at 1035, Until 07/09/23 at 1944 1459 (Given - Provider: Yanira Maradiaga RN)2135 (Given - Provider: Hamida Gonzalez RN) iopamidol (ISOVUE-370) 76 % injection 75 mL (COMPLETED) 75 mL, Intravenous, IMG once as needed, Contrast, 1 dose, Starting on Mon07/07/23 at 2007, Until Mon07/07/23 at 2007 2007 (Given - Provider: Kelly Britton, RTR) naLOXone (NARCAN) injection 0.4 mg 0.4 mg, Intravenous, As needed, Opioid reversal, Starting on 07/08/23 at 0111, Until 07/09/23 at 1944 ondansetron (ZOFRAN) injection 4 mg 4 mg, Intravenous, Every 8 hours PRN, Nausea, Vomiting, Starting on 07/08/23 at 0111, Until 07/09/23 at 1944, IV push over 2-5 minutes. 441 (Given - Provider: Edmund Finley III, LULI) polyethylene glycol (GLYCOLAX) packet 17 g 17 g, Oral, Daily as needed, Constipation, Starting on 07/08/23 at 0111, Until 07/09/23 at 1944, If both senna and polyethylene glycol are ordered, use 1st; if no response by next dosing interval, go to next option. Linked Groups Order Group 1: enoxaparin (LOVENOX) 40 MG/0.4ML syringe 40 mg (CANCELED)Jump to med 40 mg, Subcutaneous, Nightly (enoxaparin), First dose on 07/08/23 at 2100, Until Discontinued, Administer by deep SubQ injection alternating between the left or right anterolateral and left or right posterolateral abdominal wall. And Moderate Risk for VTE (COMPLETED) documented in this encounter Additional Health Concerns Infection Onset Date Last Indicated Resolved Time COVID-19 Rule Out 07/08/2023 07/08/2023 07/08/2023 3:02 PM CDT Human Metapneumovirus 07/08/2023 07/08/20232023 12:32 AM CDT Assessment Noted Time PHQ-9 Depression Total Score: 1 06/09/19 21 9:12 AM CDT documented as of this encounter Care Teams Wearing Apparel Shaker Relationship Specialty Start Date End Date Ryan Maloney DO [address] [place] [id number] PCP - General FAMILY PRACTICE 04/20/18 documented as of this encounter
--- OUTSIDE RECORDS SUMMARY | 2024-02-22 10:58 | XMS_ITS | Encounter Summary ---
Author Organization [facility] Address [address] [place] [address]. [place], [place] [id number] [place] [address] Care Team Providers Care Manager Real Estate Name Role Phone Ryan Maloney DO Primary Care Provider + Jo Mathew RN Unavailable [phone] Reason for Visit * Reason Onset Date Comments Hospital Follow Up 07/10/2023 Inpatient fol low up with : [facility]:transfer notification Encounter Details Date Type Department Care Team (Late st Contact Info) Description 07/10/2023 Patient Outreach [facility] Family & Internal Medicine [address] [id number] Jo Mathew, RN [address] [facility] [address] [place] [phone] Hospital Follow Up (Inpatient follow up with : [facility]:transfer notification) Social History Tobacco Use Types Packs/Day Years Used Date Smoking Tobacco: Former Cigarettes 1.5 3 1 03/1964 - 1967 Passive Smoke Exposure: Never Smokeless Tobacco: Never Comments:quit Alcohol Use Standard Drinks/Week Comments No 0 (1 standard drink = 0.6 oz pur e alcohol) [facility] Utilities Answer Date Recorded In the [...] on file 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 Answer Date of Assessment Author Status No 07/07/2023 11:18 PM CDT Edmund Finley III, RN Active * Do you have serious difficulty walking or climbing stairs? Answer Date of Assessment Author Status No 07/07/2023 11:18 PM JOSET Edmund Finley III, RN Active * Do you have difficulty dressing or bathing? Answer Date of Assessment Author Status No 07/07/2023 11:18 PM JOSET Edmund Finley III, RN Active * Because [...] Progress Notes * Jo Mathew RN - 07/10/2023 8:58 AM CDT .Patient admitted to [facility] on 07/06-07/08 for syncope;transferred to [facility] on 07/09/23 for acute hemolytic anemia. extrusion die coordinator following and will complete TCM call upon discharge. documented in this encounter Plan of Treatment Not on file documented as of this encounter Visit Diagnoses Not on filedocumented in this encounter Additional Health Concerns Infection Onset Date Last Indicated Resolved Time Human Metapneumovirus 07/08/2023 07/08/20232023 12:32 AM CDT Assessment Noted Time PHQ-9 Depression Total Score: 1 06/09/19 21 9:12 AM CDT documented as of this encounter Care Teams Manager Real Estate Relationship Specialty Start Date End Date Ryan Maloney DO [address] [place] [phone] PCP - General FAMILY PRACTICE 04/20/18 Jo Mathew, RN [address] [facility] [address] [place] [phone] Registered Nurse CARE MANAGEMENT 07/10/23 01/08/24 documented as of this encounter
--- OUTSIDE RECORDS SUMMARY | 2024-02-22 10:58 | XMS_ITS | Encounter Summary ---
Author Organization [facility] Address [address] [place] [address]. [place] [address] [place] [address] Care Team Providers Care Sleep Technologist Name Role Phone HaiderBrisaRyanmack Beach DO Primary Care Provider + Reason for Visit * Reason Onset Date Comments Pre-visit Gap Closure 06/13/2023 Encounter Details Date Type Department Care Team (Late st Contact Info) Description 06/13/2023 Patient Outreach [facility] [address] [place] [address] Hiro Boykin MA Pre-visit Gap Closure Social History Tobacco Use Types Packs/Day Years Used Date Smoking Tobacco: Former Cigarettes 1.5 3 1 03/1964 - 1967 Passive Smoke Exposure: Never Smokeless Tobacco: Never Comments:quit Alcohol Use Standard Drinks/Week Comments No 0 (1 standard drink = 0.6 oz pur e alcohol) AUDIT-C Answer Date Recorded Frequency of Alcohol Consumption Never 04/26/2019 Average Number of Drinks Not on file 020 Frequency of Binge Drinking Not on file 07/2019 PHQ-2 Answer Date Recorded Patient Health Questionnaire-2 Score 0 06/21/2022 Sex and Gender Information Value Date Recorded Sex Assigned at Not on file 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 Gender Identity Not on file Sexual Orientation Not on file documented as of this encounter Progress Notes * Delfina Boykin - 06/13/2023 10:31 AM CDT Preventive Screenings: Falls Risk Screening: Needs Follow Up Notes: documented in this encounter Plan of Treatment Not on file documented as of this encounter Visit Diagnoses Not on filedocumented in this encounter Additional Health Concerns Assessment Noted Time PHQ-9 Depression Total Score: 1 06/09/19 21 9:12 AM CDT documented as of this encounter Care Teams Sleep Technologist Relationship Specialty Start Date End Date Ryan Maloney DO [address] [place] [id number] PCP - General FAMILY PRACTICE 04/20/18 documented as of this encounter
--- OUTSIDE RECORDS SUMMARY | 2024-02-22 10:58 | XMS_ITS | Encounter Summary ---
Author Organization [facility] Address [address] [place] [address]. 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
--- OUTSIDE RECORDS SUMMARY | 2024-02-22 10:58 | XMS_ITS | Encounter Summary ---
Author Organization [facility] Address [address] [place] [address]. [place], [place] [id number] [place] [id number] Care Team Providers Care Battery Engineer Name Role Phone Ryan Maloney DO Primary Care Provider + Jo Mathew RN Unavailable [phone] Encounter Details Date Type Department Care Team (Latest Contact Info) Description 07/09/2023 Scan HEALTH INFO [facility] Scanned, Doc Med Group Social History Tobacco Use Types Packs/Day Years Used Date Smoking Tobacco: Former Cigarettes 1.5 3 1 03/1964 - 1967 Passive Smoke Exposure: Never Smokeless Tobacco: Never Comments:quit Alcohol Use Standard Drinks/Week Comments No 0 (1 standard drink = 0.6 oz pur e alcohol) [facility] Utilities Answer Date Recorded In the past [address] [facility] [employer], gas, oil, or water [facility] threatened to shut off services in your [...] any time in the past [address] [facility], were you homeless or living in a senior care (including now)? 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
--- OUTSIDE RECORDS SUMMARY | 2024-02-22 10:58 | XMS_ITS | Encounter Summary ---
Author Organization [facility] Address [address] [place] [address]. [place], [place] [address] [place] [address] Care Team Providers Care Antiquer Name Role Phone MarcelloLeona alvaradofco Beach DO Primary Care Provider + Jo Mathew RN Unavailable [phone] Reason for Visit * Reason Onset Date Comments Hospital Follow Up 07/19/2023 DC NOTIFICATI ON- delay in dc notification ([facility] 07/06-07/08; [facility] 07/08-07/12/23) Encounter Details Date Type Department Care Team (Late st Contact Info) Description 07/19/2023 Patient Outreach [facility] Family & Internal Medicine [address] [address] Jo Mathew, RN [address] [facility] [address] [place] [phone] Hospital Follow Up (DC NOTIFICATION- delay in dc notification ([facility] 07/06-07/08; [facility] 07/08-07/12/23)) Social History Tobacco Use Types Packs/Day Years Used Date Smoking Tobacco: Former Cigarettes 1.5 3 1 03/1964 - 1967 Passive Smoke Exposure: Never Smokeless Tobacco: Never Comments:quit Alcohol Use Standard Drinks/Week Comments No 0 (1 standard drink = 0.6 oz pur e alcohol) [facility] Utilities Answer Date Recorded In the past 12 months has e [employer], gas, oil, or water [employer] threatened to shut off services in your [...] were you homeless or living in a long-term (including now)? 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 Contacted: 07/19/23 Delayed dc notification Medication Changes: epic med list reconciled with facility AVS. New: levaguin 750mg po x 2 days Per [facility] summary: Hospital Course: 77 yo male with Hx of CLL, Autoimmune hemolytic anemia . Hemochromatosis , GERD. Presented to OSH on 06/27/23 with c/c fevers/cough/chills, CT c/a/p done - multifocal PNA, treated with Rocephin and Azithro , required 2 L NC for acute resp failure, now on RA with O2 sats 96%. Acute anemiadue to hemolytic . Hx of cold agglutinins dz. LDH was elevated . Dr Ricketts is following, triel of Prednisone 1mg/kg daily- starting 07/09 transfuse PRBCs only if Hb drops to 6 or below ( as hx of hemochromatosis ) rituximab given 07/11. Hb is stable at 7.2 g prior to discharge. PNA- suspect gram positive. Improving. Multifocal. Start pneumonia pathway , Rocephin/Azithro to complete abx 5 days. Pneumonia pathogen is positive for human metapneumovirus. Hx of Hemochromatosis /Iron Overload- unable to do phlebotomies sec to hemolytic anemia . Fe studies ordered Hx of CLL Follow up appts; Oncology 07/12; declined need for tcm appt See epic/care everywhere for labs/procedures Patient status: Spoke with patient, identified self and reason for calling. Discussed hospital course, dc instructions, medications, follow up labs, and appts. Reports he is feeling so much better. Describes his breathing as good, noting he does tire easily. Denies any concerns with appetite, bowels, or bladder. Denies any concerns with mobility. . Acknowledges upcoming lab visit and discussed pending labs, including fasting lipid. Opportunity provided for questions and patient denies any additional questions, concerns,or medication needs. Instructed on s/s to report to provider and when to seek immediate medical attention. Patient vu of instructions and appreciative of call Plan of care: patient to follow up with pcp and specialists as directed. coding coordinator no longerfollowing at this time. documented in this encounter Plan of Treatment Not on file documented as of this encounter Visit Diagnoses Not on filedocumented in this encounter Additional Health Concerns Assessment Noted Time PHQ-9 Depression Total Score: 1 06/09/19 21 9:12 AM CDT documented as of this encounter Care Teams Antiquer Relationship Specialty Start Date End Date Ryan Maloney DO [address] [place] [id number] PCP - General FAMILY PRACTICE 04/20/18 Jo Mathew, RN [address] [facility] [address] [place] [address] Registered Nurse CARE MANAGEMENT 07/10/23 01/08/24 documented as of this encounter
--- OUTSIDE RECORDS SUMMARY | 2024-02-22 10:58 | XMS_ITS | Encounter Summary ---
Author Organization [facility] Address [address] [place] [address]. [place], [place] [address] [place] [address] Care Team Providers Care Ux Developer Designer Name Role Phone HaiderBrisaRyanmack Beach DO Primary Care Provider + Encounter Details Date Type Department Care Team (Latest Contact Info) Description 07/07/2023 Travel Social History Tobacco Use Types Packs/Day Years Used Date Smoking Tobacco: Former Cigarettes 1.5 3 1 03/1964 - 1967 Passive Smoke Exposure: Never Smokeless Tobacco: Never Comments:quit Alcohol Use Standard Drinks/Week Comments No 0 (1 standard drink = 0.6 oz pur e alcohol) [facility] Utilities Answer Date Recorded In the past 12 months has [facility] [employer], gas, oil, or water [employer] threatened to shut off services in your [...] on file 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 No 07/07/2023 11:18 PM Edmund eKy III RN Active documented in this encounter Plan of Treatment Not on file documented as of this encounter Visit Diagnoses Not on filedocumented in this encounter Additional Health Concerns Assessment Noted Time PHQ-9 Depression Total Score: 1 06/09/19 21 9:12 AM CDT documented as of this encounter Care Teams Ux Developer Designer Relationship Specialty Start Date End Date Ryan Maloney DO [address] [place] [address] PCP - General FAMILY PRACTICE 04/20/18 documented as of this encounter
--- OUTSIDE RECORDS SUMMARY | 2024-02-22 10:58 | XMS_ITS | Encounter Summary ---
Author Organization [facility] Address [address] [place] [address]. 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 You can reach me by phone at [phone] or by email at [email or web address]. documented in this encounter Plan of Treatment Not on file documented as of this encounter Visit Diagnoses Not on filedocumented in this encounter Additional Health Concerns Assessment Noted Time PHQ-9 Depression Total Score: 1 06/09/19 21 9:12 AM CDT documented as of this encounter Care Teams Order Clerk Relationship Specialty Start Date End Date Ryan Maloney DO [address] [place] [address] PCP - General FAMILY PRACTICE 04/20/18 documented as of this encounter
--- OUTSIDE RECORDS SUMMARY | 2024-02-22 10:58 | XMS_ITS | Encounter Summary ---
Author Organization [facility] Address [address] [place] [address]. [place], [place] [id number] [place] [address] Care Team Providers Care Cellophane Wrapping Examiner Name Role Phone Ryan Maloney DO Primary Care Provider + Reason for Referral * (Routine) - New Request Specialty Diagnoses / Procedures Referred By Ana martin Referred To Contact Diagnoses Impacted cerumen of right ear Procedures *Ear Cerumen Removal Ryan Maloney DO [address] [place] [address] Phone: tel: fax: Referral ID Status Reason Start Date Expiration Date V isits Requested Visits Authorized [id number] New Request 06/23/2023 06/22/2024 1 1 Reason for Visit * Reason Comments Medicare Wellness The patient presents for annual visit. Patient does not have concerns at this time. Encounter Details Date Type Department Care Team (Late st Contact Info) Description 06/23/2023 9:20 AM CDT Office Visit [facility] Family & Internal Medicine - [place] [address] [place] [address] Ryan Maloney DO [address] [place], [place] [id number] Medicare Wellness (The patient presents for annual visit. Patient does not have concerns at this time. 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 Gender Identity Not on file Sexual Orientation Not on file documented as of this encounter Last Filed Vital Signs Vital Sign Reading Time Taken Comments Blood Pressure 112/72 06/23/2023 9:31 AM CDT Pulse 67 06/23/2023 9:31 AM CDT Temperature 37.3 ??C (99.1 ??F) 06/23/2023 9:31 AM CD T Respiratory Rate 16 06/23/2023 9:31 AM CDT Oxygen Saturation 97% 06/23/2023 9:31 AM CDT Inhaled Oxygen Concentration - - Weight 76.8 kg (169 lb 4.8 oz) 06/23/2023 9:31 A M CDT Height 171.5 cm (5' 7.5 ) 06/23/2023 9:31 AM CDT Body Mass Index 26.12 06/23/2023 9:31 AM CDT documented in this encounter Progress Notes * Ryan Maloney, DO - 06/23/2023 9:20 AM CDTAssociated Order(s): *Ear Cerumen Removal Post-Procedure Diagnose(s): Impacted cerumen of right ear Images from the original note were not included. GENERAL OFFICE VISIT Encounter Date: 06/23/2023 Chief Complaint: 77-year-old male presents for Medicare Wellness (The patient presents for annual visit. Patient does not have concerns at this time. ) HPI: General Health: good Dental Health: Sees dentist regularly Vision Health: Wears glasses Has patient seen an project management professional in the last year: Yes, Dr. Kruse Hearing Health: Tinnitus Immunizations Needed: Had Shingles vaccine but is not available in system other than Zostavax, recommend RSV and COVID Weight: Overweight Body mass index is 26.12 kg/m??. Physical Activity: Excersises regularly Prostate Cancer Screening: Would like to keep checking annually Colorectal Cancer Screening: Colonoscopy last done: 09/15/21, repeat in 5 years Metabolic Screening: Patient has not been screened previously within the past year. 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 Pt sees Dr. Little, last visit in March 2023. Pt's counts were down a bit so he is following up sooner. Pt has been stable otherwise. Review of Systems Constitutional: Negative for fever. HENT: Negative for hearing loss. Eyes: Negative for blurred vision. Respiratory: Negative for shortness of breath. Cardiovascular: Has had chest pain in the past, has been stable Gastrointestinal: Negative for abdominal pain, nausea and vomiting. Genitourinary: Negative for dysuria. Skin: Negative for rash. Psychiatric/Behavioral: Negative for depression. Patient Active Problem List Diagnosis Chronic lymphocytic leukemia (CMS/HCC HHS/HCC) Autoimmune hemolytic anemia (CMS/HCC HHS/HCC) Other chest pain Gastroesophageal reflux disease, esophagitis presence not specified BMI 25.0-25.9,adult Puncture wound SOB (shortness of breath) History of tobacco use Iron overload Laceration of left ring finger Past Medical History: Diagnosis Date Anemia Cataract Chronic lymphocytic leukemia (CMS/HCC HHS/HCC) GERD (gastroesophageal reflux disease) Past Surgical History: Procedure Laterality Date CHOLECYSTECTOMY EXCISION BASAL CELL CARCINOMA KNEE ARTHROSCOPY Right knee REMOVAL OF SPERM DUCT(S) TRANSURETHRAL RESECTION OF BLADDER Family History Problem Relation Name Age of Onset Cancer Mother Margert skin Heart Disease Maternal Grandmother Verti Cancer Sister Radha Social History Socioeconomic History Marital status: Spouse name: Not on file Number of children: 2 Years of education: Not on file Highest education level: Not on file Occupational History Not on file Tobacco Use Smoking status: Former Current packs/day: 0.00 Average packs/day: 1.5 packs/day for 3.0 years (4.5 ttl pk-yrs) Types: Cigarettes Start date: 01/1965 Quit date: 1967 Years since quittin.4 Passive exposure: Never Smokeless tobacco: Never Tobacco comments: quit Vaping Use Vaping status: Never Used Substance and Sexual Activity Alcohol use: No Drug use: No Sexual activity: Not Currently Partners: Female control/protection: Surgical, None Other Topics Concern Not on file Social History Narrative Not on file Social Determinants of Health Financial Resource Strain: Not on file Food Insecurity: Not on file Transportation Needs: Not on file Physical Activity: Not on file Stress: Not on file Social Connections: Not on file Intimate Partner Violence: Not on file Housing Stability: Not on file Immunization History Administered Date(s) Administered Flublok (Quadrivalent) 12/05/2018 Fluzone High Dose - >Age 65 (Prefilled Syringe) 11/29/2013, 11/25/2014, 12/02/2015, 11/24/2016, 11/29/2017, 12/01/2017, 11/12/2019, 11/02/2020, 11/16/2021, 11/18/2022 Influenza 12/10/2011, 12/11/2012, 11/24/2017, 12/05/2018 Influenza Adult (Generic) 12/11/2012, 11/29/2013, 11/25/2014, 12/02/2015, 11/24/2016, 11/29/2017, 12/01/2017, 12/08/2018, 11/16/2021 PFIZER COVID-19 (ORIGINAL FORMULATION, PURPLE CAP) mRNA, LNP-S, PF, 30 MCG/0.3 ML DOSE 04/13/2020, 05/04/2020 Pneumococcal (Pneumovax 23) 01/17/2018 Pneumococcal (Prevnar 13) 04/26/2019 Tdap (Boostrix) 06/08/2020 Zoster (Zostavax) [address] Unt/0.65Ml 12/09/2009 Current Outpatient Medications Medication Sig Dispense Refill B Xagiwkc-N-Frale Acid (DIATX OR) Take 1 tablet by mouth daily. Calcium Carbonate Antacid (CALCIUM CARBONATE OR) Take 600 mg by mouth daily. Cholecalciferol (VITAMIN D3) 2000 units Tab Take 2 tablets (4,000 Units total) by mouth daily. Cinnamon Bark Powder Take 1,200 mg by mouth daily. famotidine (PEPCID) 20 MG tablet Take 1 tablet (20 mg total) by mouth 2 (two) times daily. 180 tablet 3 Pgzrgk-Bwbhg-Covq Ac-Ca Fructo ([facility] [employer] [facility] [employer]) Tab Take 1 tablet by mouth daily. magnesium oxide 250 MG tablet Take 1 tablet (250 mg total) by mouth daily. Zinc Acetate, Oral, (GALZIN OR) Take 1 tablet by mouth daily. 15 mg once daily No current facility-administered medications for this visit. Current Outpatient Medications on File Prior to Visit Medication Sig B Rwcnpav-T-Jzpwh Acid (DIATX OR) Take 1 tablet by mouth daily. Calcium Carbonate Antacid (CALCIUM CARBONATE OR) Take 600 mg by mouth daily. Cholecalciferol (VITAMIN D3) 2000 units Tab Take 2 tablets (4,000 Units total) by mouth daily. Cinnamon Bark Powder Take 1,200 mg by mouth daily. famotidine (PEPCID) 20 MG tablet Take 1 tablet (20 mg total) by mouth 2 (two) times daily. Incqaw-Yvyih-Ywvs Ac-Ca Fructo ([employer] [facility] [employer]) Tab Take 1 tablet by mouth daily. magnesium oxide 250 MG tablet Take 1 tablet (250 mg total) by mouth daily. Zinc Acetate, Oral, (GALZIN OR) Take 1 tablet by mouth daily. 15 mg once daily No current facility-administered medications on file prior to visit. Review of patient's allergies indicates: Allergen Reactions White Salmon [Hydrocodone-Acetaminophen] Nausea Only Objective: Filed Vitals: 06/23/23 0931 BP: 112/72 Pulse: 67 Resp: 16 Temp: 99.1 ??F (37.3 ??C) TempSrc: Skin SpO2: 97% Weight: 76.8 kg (169 lb 4.8 oz) Height: 1.715 m (5' 7.5 ) Physical Exam Vitals and nursing note reviewed. Constitutional: General: He is not in acute distress. HENT: Head: Normocephalic and atraumatic. Right Ear: Tympanic membrane and ear canal normal. There is impacted cerumen. Left Ear: Tympanic membrane, ear canal and external ear normal. Mouth/Throat: Pharynx: No oropharyngeal exudate. Eyes: General: No scleral icterus. Conjunctiva/sclera: Conjunctivae normal. Cardiovascular: Rate and Rhythm: Normal rate and regular rhythm. Heart sounds: Normal heart sounds. No murmur heard. No friction rub. No gallop. Pulmonary: Effort: Pulmonary effort is normal. No respiratory distress. Breath sounds: Normal breath sounds. No wheezing or rales. Abdominal: General: Bowel sounds are normal. Palpations: Abdomen is soft. Tenderness: There is no abdominal tenderness. Musculoskeletal: Cervical back: Neck supple. Lymphadenopathy: Cervical: No cervical adenopathy. Skin: General: Skin is warm and dry. Findings: No rash. Neurological: Mental Status: He is alert and oriented to person, place, and time. Gait: Gait normal. Psychiatric: Mood and Affect: Mood and affect normal. *Ear Cerumen Removal Date/Time: 06/23/2023 10:08 AM Performed by: Ryan Maloney DO Authorized by: Ryan Maloney DO Anesthesia: Local Anesthetic: none Location details: right ear Patient tolerance: patient tolerated the procedure well with no immediate complications Procedure type: irrigation Sedation: Patient sedated: no Assessment & Plan: Richard was seen today for medicare wellness. Diagnoses and all orders for this visit: Autoimmune hemolytic anemia (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) - TSH W/REFLEX; Future - LIPID PANEL; Future - PROSTATE SPECIFIC ANTIGEN,SCREENING; Future Other chest pain - LIPID PANEL; Future Screening for lipid disorders - TSH W/REFLEX; Future - LIPID PANEL; Future - PROSTATE SPECIFIC ANTIGEN,SCREENING; Future Screening for prostate cancer - TSH W/REFLEX; Future - LIPID PANEL; Future - PROSTATE SPECIFIC ANTIGEN,SCREENING; Future Screening for endocrine, metabolic and immunity disorder - TSH W/REFLEX; Future - LIPID PANEL; Future - PROSTATE SPECIFIC ANTIGEN,SCREENING; Future Annual physical exam - TSH W/REFLEX; Future - LIPID PANEL; Future - PROSTATE SPECIFIC ANTIGEN,SCREENING; Future BMI 26.0-26.9,adult - LIPID PANEL; Future Other orders - *Ear Cerumen Removal Discussion/Summary: Cerumen removed today without complication. Continue follow-up with Dr. Little for CLL, anemia, andcold agglutinin disease; obtain labs as recommended per them. Will order labs per above. Recommend Shingrix, RSV, and COVID vaccines; pt will defer based upon hematology recommendations. Will have patient follow-up in 1 year or sooner if needed. Patient verbalized understanding. I personally spent a total of 30 minutes on the day of the encounter. This includes wnid-jx-ysoo and clk-uvlt-ck-face time I provided on the day of the encounter & excludes time spent performing separately reportable services. Ryan Maloney DO documented in this encounter Plan of Treatment Not on file documented as of this encounter Procedures Procedure Name Priority Date/Time Associated Diagnosis Comments REMOVAL IMPACTED CERUMEN IRRIGATION/LAVAGE UNILAT Routine 06/23/2023 10:08 AM CDT Impacted cerumen of right ear documented in this encounter Results * PROSTATE SPECIFIC ANTIGEN,SCREENING (08/01/2023 9:56 AM CDT) PSA 1.75 <4.00 NG/ML 08/01/2023 3:09 PM CDT -[facility] Comment: ASSAY PERFORMED BY [employer] IMMUNOASSAY METHODOLOGY USING SIEMENS DIMENSION REAGENT. PATIENT RESULTS DETERMINED BY ASSAYS FROM DIFFERENT MANUFACTURERS AND/OR BY DIFFERENT METHODS MAY NOT BE COMPARABLE. 08/01/2023 9:56 AM CDT Ryan Maloney DO LABORATORY Final Re sult [facility] [address] [place] [address], * LIPID PANEL (08/01/2023 9:56 AM CDT) CHOLESTEROL 124 <200 MG/DL 08/01/2023 3:12 PM CDT [facility] TRIGLYCERIDES 100 <150 MG/DL 08/01/2023 3:12 PM CDT [facility] HDL 43 >40 MG/DL 08/01/2023 3:12 PM CDT [facility] LDL-C 61 <100 MG/DL 08/01/2023 3:12 PM CDT [facility] VLDL CALCULATION 20 5 - 28 MG/DL 08/01/2023 3:12 PM CDT [facility] CHOL/HDL RATIO 2.9 0.0 - 4.0 08/01/2023 3:12 PM CDT [facility] LDL/HDL 1.4 0.41 - 2.13 08/01/2023 3:12 PM CDT [facility] NON HDL CHOLESTEROL 81 <140 MG/DL 08/01/2023 3:12 PM CDT [facility] 08/01/2023 9:56 AM CDT Ryan Maloney DO LABORATORY Final Re sult Performing Organization Address [facility]/ZIP Co de Phone Number [facility] [address] [place] [phone], * TSH W/REFLEX (08/01/2023 9:56 AM CDT) TSH 1.197 0.358 - 3.740 uIU/ML 08/01/2023 3:12 PM CDT [facility] 08/01/2023 9:56 AM CDT Ryan Maloney DO LABORATORY Final Re sult [facility] [address] [place] [address], * REMOVAL IMPACTED CERUMEN IRRIGATION/LAVAGE UNILAT (06/23/2023 10:08 AM CDT) Narrative Ryan Maloney DO - 06/23/2023 10:08 AM CDT Ryan Maloney, DO ? 06/23/2023 ??1:01 PM *Ear Cerumen Removal Date/Time: 06/23/2023 10:08 AM Performed by: yRan Maloney DO Authorized by: Ryan Maloney, DO ?? Anesthesia: Local Anesthetic: none Location details: right ear Patient tolerance: patient tolerated the procedure well with no immediate complications Procedure type: irrigation Sedation: Patient sedated: no Ryan Maloney DO PROCEDURE/MINOR SURGICAL ORDERABLES Final Result documented in this encounter Visit Diagnoses Diagnosis Autoimmune hemolytic anemia (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) Autoimmune hemolytic anemias Chronic lymphocytic leukemia ([facility]) Chronic lymphoid leukemia, without mention of having achieved remission Other chest pain Screening for lipid disorders Screening for prostate cancer Special screening for malignant neoplasm of prostate Screening for endocrine, metabolic and immunity disorder Annual physical exam Routine general medical examination at a health care facility BMI 26.0-26.9,adult Body Mass Index 26.0-26.9, adult Impacted cerumen of right ear Impacted cerumen documented in this encounter Additional Health Concerns Assessment Noted Time PHQ-9 Depression Total Score: 1 06/09/19 21 9:12 AM CDT documented as of this encounter Care Teams Cellophane Wrapping Examiner Relationship Specialty Start Date End Date Ryan Maloney DO [address] [place] [address] PCP - General FAMILY PRACTICE 04/20/18 documented as of this encounter
--- OUTSIDE RECORDS SUMMARY | 2024-02-22 10:58 | XMS_ITS | Encounter Summary ---
Author Organization [facility] Address [address] [place] [address]. [place], [place] [address] [place] [address] Care Team Providers Care Stoneworking Sander Name Role Phone Ryan Maloney DO Primary Care Provider + Jo Mathew RN Unavailable [phone] Reason for Visit * Reason Onset Date Comments TCM 07/10/2023 Encounter Details Date Type Department Care Team (Late st Contact Info) Description 07/10/2023 Telephone [facility] Family & Internal Medicine [id number] [place] [address] Ryan Maloney DO [address] [place] [address] [facility] Social History Tobacco Use Types Packs/Day Years Used Date Smoking Tobacco: Former Cigarettes 1.5 3 1 03/1964 - 1967 Passive Smoke Exposure: Never Smokeless Tobacco: Never Comments:quit Alcohol Use Standard Drinks/Week Comments No 0 (1 standard drink = 0.6 oz pur e alcohol) [facility] Utilities Answer Date Recorded In the [...] any time in the past 12 m [facility], were you homeless or living in a correction (including now)? 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 Answer Date of Assessment Author Status No 07/07/2023 11:18 PM Edmund Key III, RN Active * Because of a physical, mental, or emotional condition, do you have difficulty doing errands alone such as visiting a doctor's office or shopping? Answer Date of Assessment Author Status No 07/07/2023 11:18 PM Edmund Kye III, RN Active documented as of this encounter Mental Status * Because of a physical, mental, or emotional condition, do you have serious difficulty concentrating, remembering, or making decisions? Answer Entry Date Author Status No 07/07/2023 11:18 PM Edmund Key III, RN Active documented in this encounter Progress Notes * Jo Mathew RN - 07/10/2023 8:51 AM CDT Patient transferred to [facility] on 07/09/[address] [facility] for PNA. metal flow coordinator followingand will complete tcm call upon discharge. * Sarah Sotelo RN - 07/10/2023 7:40 AM CDT Attempted to call the patient for TCM call, was unable to reach them at this time. Left a message requesting a call back. -5/20/24 documented in this encounter Plan of Treatment Not on file documented as of this encounter Visit Diagnoses Not on filedocumented in this encounter Additional Health Concerns Infection Onset Date Last Indicated Resolved Time Human Metapneumovirus 07/08/2023 07/08/20232023 12:32 AM CDT Assessment Noted Time PHQ-9 Depression Total Score: 1 06/09/19 21 9:12 AM CDT documented as of this encounter Care Teams Stoneworking Sander Relationship Specialty Start Date End Date Ryan Maloney DO [address] [place] [address] PCP - General FAMILY PRACTICE 04/20/18 Jo Mathew, RN [address] [address] Registered Nurse CARE MANAGEMENT 07/10/23 01/08/24 documented as of this encounter
--- OUTSIDE RECORDS SUMMARY | 2024-02-22 10:58 | XMS_ITS | Encounter Summary ---
Author Organization [facility] Address [address] [place] [address]. 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 No If so, where? N/a Home Covid test: took tests for flu and covid both negative. Call back #: [phone] Allergies: Allergies Allergen Reactions [place] [Hydrocodone-Acetaminophen] Nausea Only Pharmacy: [id number] [facility] 159 documented in this encounter Plan of Treatment Not on file documented as of this encounter Visit Diagnoses Not on filedocumented in this encounter Additional Health Concerns Assessment Noted Time PHQ-9 Depression Total Score: 1 06/09/19 21 9:12 AM CDT documented as of this encounter Care Teams Garbage Truck Dispatcher Relationship Specialty Start Date End Date Ryan Maloney DO [address] [place] [address] PCP - General FAMILY PRACTICE 04/20/18 documented as of this encounter
--- OUTSIDE RECORDS SUMMARY | 2024-02-22 10:58 | XMS_ITS | Encounter Summary ---
Author Organization [facility] Address [address] [place] [address]. [place], [place] [address] [place] [address] Care Team Providers Care Divisional Storekeeper Name Role Phone Ryan Maloney DO Primary Care Provider + Reason for Visit * Reason Comments Cough Sx x5 days/otc medic ation taken/pt states he was tested for covid and flu 07/06/23 with negative results Fever Vomiting Fall E-Visit Encounter Details Date Type Department Care Team (Late st Contact Info) Description 07/07/2023 2:00 PM CDT Telemedicine [facility] Medical Group Family & Internal Medicine [address] [address] Ryan Maloney DO [address] [place] [address] [id number] Cough (Sx x5 days/otc medication taken/pt states he was tested for covid and flu 07/06/23 with negative results ); Fever; Vomiting; Fall; E-Visit Social History Tobacco Use Types Packs/Day Years Used Date Smoking Tobacco: Former Cigarettes 1.5 3 1 03/1964 - 1967 Passive Smoke Exposure: Never Smokeless Tobacco: Never Comments:quit Alcohol Use Standard Drinks/Week Comments No 0 (1 standard drink = 0.6 oz pur e alcohol) [facility] Utilities Answer Date Recorded In the past 12 months has [employer], oil, or water [employer] threatened to shut off services in your [...] any time in the past 12 m onths, were you homeless or living in a longterm (including now)? 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 Gender Identity Not on file Sexual Orientation Not on file documented as of this encounter Last Filed Vital Signs Vital Sign Reading Time Taken Comments Blood Pressure 127/52 07/07/2023 2:00 PM CDT sta marcelino Pulse 91 07/07/2023 2:00 PM CDT state d Temperature 38.4 ??C (101.2 ??F) 07/07/2023 2:00 PM C DT stated Respiratory Rate - - Oxygen Saturation 92% 07/07/2023 2:00 PM CDT stated Inhaled Oxygen Concentration - - Weight 74.8 kg (165 lb) 07/07/2023 2:00 PM CDT s tated Height - - Body Mass Index 25.46 06/23/2023 9:31 AM CDT documented in this encounter Progress Notes * Ryan Maloney, - 07/07/2023 2:00 PM CDT Images from the original note were not included. GENERAL OFFICE VISIT Encounter Date: 07/07/2023 I introduced and identified myself, received verbal consent from the patient to proceed with this video visit and made the patient aware that the same confidentiality and technical information specialist practices apply. The patient joined the video visit from Home. I completed the virtual visit from Office. The following clinical staff helped with this visit MA: Costa Pinto . Total Time Spent in Minutes: 10 Chief Complaint: 77-year-old male presents for Cough (Sx x5 days/otc medication taken/pt states he was tested for covid and flu 07/06/23 with negative results ), Fever, Vomiting, Fall, and E-Visit HPI: Patient states symptoms have been present for 5 days. Symptoms include cough, vomiting, chills, fever of 101.2, dizziness with fall (onto couch, no for sure LOC), questionable SOB, myalgias, difficulty sleeping due to cough. Pertinent negatives include Rash. Patient has no sick contacts. OTC medications tried include cold medicine and Claritin. Pt did do COVID/flu swab on 07/06/23 at [facility] that was negative. Review of Systems Constitutional: Positive for chills, fatigue and fever. HENT: Negative for congestion, sinus pressure and sore throat. Respiratory: Positive for cough. Negative for shortness of breath. Cardiovascular: Negative for chest pain. Gastrointestinal: Positive for nausea and vomiting. Negative for abdominal pain. Musculoskeletal: Positive for myalgias. Skin: Negative for rash. Neurological: Positive for headaches. Patient Active Problem List Diagnosis Chronic lymphocytic leukemia ([facility] HHS/HCC) Autoimmune hemolytic anemia ([facility] HHS/HCC) Other chest pain Gastroesophageal reflux disease, esophagitis presence not specified BMI 25.0-25.9,adult Puncture wound SOB (shortness of breath) History of tobacco use Iron overload Laceration of left ring finger Past Medical History: Diagnosis Date Anemia Cataract Chronic lymphocytic leukemia ([facility]) GERD (gastroesophageal reflux disease) Past Surgical History: [...] 11/25/2014, 12/02/2015, 11/24/2016, 11/29/2017, 12/01/2017, 12/08/2018, 11/16/2021 [facility] COVID-19 (ORIGINAL FORMULATION, PURPLE CAP) mRNA, LNP-S, PF, 30 MCG/0.3 ML DOSE 04/13/2020, 05/04/2020 Pneumococcal (Pneumovax 23) 01/17/2018 Pneumococcal (Prevnar 13) 04/26/2019 Tdap (Boostrix) 06/08/2020 Zoster (Zostavax) 83471 Unt/0.65Ml 12/09/2009 Current Outpatient Medications Medication Sig Dispense Refill B Uzwlkpr-Z-Nnbis Acid (DIATX OR) Take 1 tablet by [...] 2 (two) times daily. 180 tablet 3 Emnsfh-Kyuel-Azib Ac-Ca Fructo (MOVE FREE [facility]) Tab Take 1 tablet by mouth daily. magnesium oxide 250 MG tablet Take 1 tablet (250 mg total) by mouth daily. Zinc Acetate, Oral, (GALZIN OR) Take 1 tablet by mouth daily. 15 mg once daily No current facility-administered medications for this visit. Current Outpatient Medications on File Prior to Visit Medication Sig B Mocdncg-N-Quwou Acid (DIATX OR) Take 1 tablet by mouth daily. Calcium Carbonate Antacid (CALCIUM CARBONATE OR) Take 600 mg by mouth daily. Cholecalciferol (VITAMIN D3) 2000 units Tab Take 2 tablets (4,000 Units total) by mouth daily. Cinnamon Bark Powder Take 1,200 mg by mouth daily. famotidine (PEPCID) 20 MG tablet Take 1 tablet (20 mg total) by mouth 2 (two) times daily. Oefesa-Arbse-Yokn Ac-Ca Fructo (M[facility] FREE [facility]) Tab Take 1 tablet by mouth daily. magnesium oxide 250 MG tablet Take 1 tablet (250 mg total) by mouth daily. Zinc Acetate, Oral, (GALZIN OR) Take 1 tablet by mouth daily. 15 mg once daily No current facility-administered medications on file prior to visit. Review of patient's allergies indicates: Allergen Reactions [place] [Hydrocodone-Acetaminophen] Nausea Only Objective: As this is a virtual visit, no formal vitals are able to be obtained. No home vitals or testing device readings are relevant to this visit. Physical Exam Vitals and nursing note reviewed. Constitutional: Comments: Paler appearance HENT: Head: Normocephalic and atraumatic. Right Ear: External ear normal. Left Ear: External ear normal. Nose: Nose normal. Eyes: General: No scleral icterus. Conjunctiva/sclera: Conjunctivae normal. Pulmonary: Effort: Pulmonary effort is normal. Skin: General: Skin is dry. Findings: No rash. Neurological: Mental Status: He is alert and oriented to person, place, and time. Psychiatric: Mood and Affect: Mood and affect normal. Assessment & Plan: Richard was seen today for cough, fever, vomiting, fall and e-visit. Diagnoses and all orders for this visit: Fever, unspecified fever cause Nausea and vomiting, unspecified vomiting type Dizziness Autoimmune hemolytic anemia ([facility]) Chronic lymphocytic leukemia ([facility]) Discussion/Summary: Concern for more serious pathology needing to be treated and current for lab, especially given patient's history of autoimmune hemolytic anemia and CLL in the presence of fever and vomiting with concerning features upon description. Will have patient go to [facility] emergency room for further evaluation and treatment. Sarah Sotelo RN called report to ER. Pt v/u. Ryan Maloney DO documented in this encounter Plan of Treatment Not on file documented as of this encounter Visit Diagnoses Diagnosis Fever, unspecified fever cause- Primary Nausea and vomiting, unspecified vomiting type Dizziness Dizziness and giddiness Autoimmune hemolytic anemia ([facility]) Autoimmune hemolytic anemias Chronic lymphocytic leukemia ([facility]) Chronic lymphoid leukemia, without mention of having achieved remission documented in this encounter Additional Health Concerns Assessment Noted Time PHQ-9 Depression Total Score: 1 06/09/19 21 9:12 AM CDT documented as of this encounter Care Teams Divisional Storekeeper Relationship Specialty Start Date End Date Ryan Maloney DO [address] [place] [address] PCP - General FAMILY PRACTICE 04/20/18 documented as of this encounter
--- OUTSIDE RECORDS SUMMARY | 2024-02-22 10:59 | XMS_ITS | Encounter Summary ---
Author Organization [facility] Address [address] [place] [address]. [place], [place] [id number] [place] [address] Care Team Providers Care Lens Polisher Hand Name Role Phone Ryan Maloney Baylee ARELLANO Primary Care Provider + Reason for Visit * Reason Comments Lab (SCAN) Encounter Details Date Type Department Care Team (Latest Contact Info) Description 04/06/2021 Scan HEALTH INFO SRVCS Scanned, Documents Lab (SCAN) Social History Tobacco Use Types Packs/Day Years Used Date Smoking Tobacco: Former Cigarettes 1.5 3 1 967 - 1970 Smokeless Tobacco: Never Alcohol Use Standard Drinks/Week Comments No 0 (1 standard drink = 0.6 oz pur e alcohol) AUDIT-C Answer Date Recorded Frequency of Alcohol Consumption Never 04/26/2019 Average Number of Drinks Not on file 020 Frequency of Binge Drinking Not on file 07/2019 PHQ-2 Answer Date Recorded PHQ-2 Score - If the patient scores above 3, please move on to questions 3-9 0 06/08/2020 Sex and Gender Information Value Date Recorded Sex Assigned at Not on file 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 us Documents Scanned SCANNING Final Result documented in this encounter Visit Diagnoses Not on filedocumented in this encounter Additional Health Concerns Assessment Noted Time PHQ-9 Depression Total Score: 1 06/09/19 21 9:12 AM CDT documented as of this encounter Care Teams Lens Polisher Hand Relationship Specialty Start Date End Date Ryan Maloney DO [address] [place] [address] PCP - General FAMILY PRACTICE 04/20/18 documented as of this encounter
--- OUTSIDE RECORDS SUMMARY | 2024-02-22 10:59 | XMS_ITS | Encounter Summary ---
Author Organization [facility] Address [address] [place] [address]. 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
--- OUTSIDE RECORDS SUMMARY | 2024-02-22 10:59 | XMS_ITS | Encounter Summary ---
Author Organization [facility] Address [address] [place] [address]. 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 us Documents Scanned SCANNING Final Result documented in this encounter Visit Diagnoses Not on filedocumented in this encounter Additional Health Concerns Assessment Noted Time PHQ-9 Depression Total Score: 1 06/09/19 21 9:12 AM CDT documented as of this encounter Care Teams Morning Show Host Relationship Specialty Start Date End Date Ryan Maloney DO [address] [place] [address] PCP - General FAMILY PRACTICE 04/20/18 documented as of this encounter
--- OUTSIDE RECORDS SUMMARY | 2024-02-22 10:59 | XMS_ITS | Encounter Summary ---
Author Organization [facility] Address [address] [place] [address]. 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 Gender Identity Not on file Sexual Orientation Not on file documented as of this encounter Plan of Treatment Not on file documented as of this encounter Procedures Procedure Name Priority Date/Time Associated Diagnosis Comments OUTSIDE LAB (SCAN ORDER) 04/05/2023 OUTSIDE LAB (SCAN ORDER) 04/05/2023 documented in this encounter Results * OUTSIDE LAB (SCAN ORDER) (04/05/2023) 04/05/2023 [facility] Scanned SCANNING Final Resu lt * OUTSIDE LAB (SCAN ORDER) (04/05/2023) 04/05/2023 [facility] Scanned SCANNING Final Resu lt documented in this encounter Visit Diagnoses Not on filedocumented in this encounter Additional Health Concerns Assessment Noted Time PHQ-9 Depression Total Score: 1 06/09/19 21 9:12 AM CDT documented as of this encounter Care Teams Grinder Mill Operator Relationship Specialty Start Date End Date Ryan Maloney DO [address] [place] [address] PCP - General FAMILY PRACTICE 04/20/18 documented as of this encounter
--- OUTSIDE RECORDS SUMMARY | 2024-02-22 10:59 | XMS_ITS | Encounter Summary ---
Author Organization [facility] Address [address] [place] [address]. 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 No / Unsure 07/27/2022 7:28 AM CDT documented as of this encounter Plan of Treatment Not on file documented as of this encounter Visit Diagnoses Not on filedocumented in this encounter Additional Health Concerns Assessment Noted Time PHQ-9 Depression Total Score: 1 06/09/19 21 9:12 AM CDT documented as of this encounter Care Teams Pan Tank Worker Relationship Specialty Start Date End Date Ryan Maloney DO [address] [place] [address] PCP - General FAMILY PRACTICE 04/20/18 documented as of this encounter
--- OUTSIDE RECORDS SUMMARY | 2024-02-22 10:59 | XMS_ITS | Encounter Summary ---
Author Organization [facility] Address [address] [place] [address]. [place], [place] [address] [place] [address] Care Team Providers Care Signal Maintainer Helper Name Role Phone Ryan Maloney Baylee ARELLANO Primary Care Provider + Encounter Details Date Type Department Care Team (Latest Contact Info) Description 07/26/2021 Travel Social History Tobacco Use Types Packs/Day Years Used Date Smoking Tobacco: Former Cigarettes 1.5 3 1 03/1964 - 1967 Smokeless Tobacco: Never Alcohol Use Standard Drinks/Week Comments No 0 (1 standard drink = 0.6 oz pur e alcohol) AUDIT-C Answer Date Recorded Frequency of Alcohol Consumption Never 04/26/2019 Average Number of Drinks Not on file 020 Frequency of Binge Drinking Not on file 0307/2019 PHQ-2 Answer Date Recorded PHQ-2 Score - If the patient scores above 3, please move on to questions 3-9 0 06/21/2021 Sex and Gender Information Value Date Recorded Sex Assigned at Not on file 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 No / Unsure 07/26/2021 10:27 AM CDT documented as of this encounter Plan of Treatment Not on file documented as of this encounter Visit Diagnoses Not on filedocumented in this encounter Additional Health Concerns Assessment Noted Time PHQ-9 Depression Total Score: 1 06/09/19 21 9:12 AM CDT documented as of this encounter Care Teams Signal Maintainer Helper Relationship Specialty Start Date End Date Ryan Maloney DO [address] [place] [address] PCP - General FAMILY PRACTICE 04/20/18 documented as of this encounter
--- OUTSIDE RECORDS SUMMARY | 2024-02-22 10:59 | XMS_ITS | Encounter Summary ---
Author Organization [facility] Address [address] [place] [address]. 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 us Documents Scanned SCANNING Final Result * OUTSIDE LAB (SCAN) (10/06/2021) 10/06/2021 Narrative 10/06/2021 Ordered by an unspecified provider. us Documents Scanned SCANNING Final Result documented in this encounter Visit Diagnoses Not on filedocumented in this encounter Additional Health Concerns Assessment Noted Time PHQ-9 Depression Total Score: 1 06/09/19 21 9:12 AM CDT documented as of this encounter Care Teams Geriatrics Physician Relationship Specialty Start Date End Date Ryan Maloney DO [address] [place] [address] PCP - General FAMILY PRACTICE 04/20/18 documented as of this encounter
--- OUTSIDE RECORDS SUMMARY | 2024-02-22 10:59 | XMS_ITS | Encounter Summary ---
Author Organization [facility] Address [address] [place] [address]. 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 No / Unsure 06/20/2021 9:14 AM CDT documented as of this encounter Plan of Treatment Not on file documented as of this encounter Visit Diagnoses Not on filedocumented in this encounter Additional Health Concerns Assessment Noted Time PHQ-9 Depression Total Score: 1 04/19/20 21 9:12 AM CDT documented as of this encounter Care Teams Mortuary Technician Relationship Specialty Start Date End Date Ryan Maloney DO [address] [place] [address] PCP - General FAMILY PRACTICE 04/20/18 documented as of this encounter
--- OUTSIDE RECORDS SUMMARY | 2024-02-22 10:59 | XMS_ITS | Encounter Summary ---
Author Organization [facility] Address [address] [place] [address]. 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 us Documents Scanned SCANNING Final Result * COLONOSCOPY GENERIC (09/15/2021) 09/15/2021 Narrative 09/15/2021 Ordered by an unspecified provider. us Documents Scanned SCANNING Final Result documented in this encounter Visit Diagnoses Not on filedocumented in this encounter Additional Health Concerns Assessment Noted Time PHQ-9 Depression Total Score: 1 06/09/19 21 9:12 AM CDT documented as of this encounter Care Teams Legal Aid Relationship Specialty Start Date End Date Ryan Maloney DO [address] [place] [address] PCP - General FAMILY PRACTICE 04/20/18 documented as of this encounter
--- OUTSIDE RECORDS SUMMARY | 2024-02-22 10:59 | XMS_ITS | Encounter Summary ---
Author Organization [facility] Address [address] [place] [address]. 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 Gender Identity Not on file Sexual Orientation Not on file documented as of this encounter Plan of Treatment Not on file documented as of this encounter Procedures Procedure Name Priority Date/Time Associated Diagnosis Comments OUTSIDE LAB (SCAN ORDER) 10/06/2022 documented in this encounter Results * OUTSIDE LAB (SCAN) (10/06/2022) 10/06/2022 [facility] Scanned SCANNING Final Resu lt documented in this encounter Visit Diagnoses Not on filedocumented in this encounter Additional Health Concerns Assessment Noted Time PHQ-9 Depression Total Score: 1 06/09/19 21 9:12 AM CDT documented as of this encounter Care Teams Mail Order Clerk Relationship Specialty Start Date End Date Ryan Maloney DO [address] [place] [address] PCP - General FAMILY PRACTICE 04/20/18 documented as of this encounter
--- OUTSIDE RECORDS SUMMARY | 2024-02-22 10:59 | XMS_ITS | Encounter Summary ---
Author Organization [facility] Address [address] [place] [address]. 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 Gender Identity Not on file Sexual Orientation Not on file documented as of this encounter Plan of Treatment Not on file documented as of this encounter Procedures Procedure Name Priority Date/Time Associated Diagnosis Comments OUTSIDE LAB (SCAN ORDER) 02/02/2023 OUTSIDE LAB (SCAN ORDER) 02/02/2023 documented in this encounter Results * OUTSIDE LAB (SCAN) (02/02/2023) 02/02/2023 [facility] Scanned SCANNING Final Resu lt * OUTSIDE LAB (SCAN) (02/02/2023) 02/02/2023 [facility] Scanned SCANNING Final Resu lt documented in this encounter Visit Diagnoses Not on filedocumented in this encounter Additional Health Concerns Assessment Noted Time PHQ-9 Depression Total Score: 1 06/09/19 21 9:12 AM CDT documented as of this encounter Care Teams Motor Lodge Clerk Relationship Specialty Start Date End Date Ryan Maloney DO [address] [place] [address] PCP - General FAMILY PRACTICE 04/20/18 documented as of this encounter
--- OUTSIDE RECORDS SUMMARY | 2024-02-22 10:59 | XMS_ITS | Encounter Summary ---
Author Organization [facility] Address [address] [place] [address]. 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
--- OUTSIDE RECORDS SUMMARY | 2024-02-22 10:59 | XMS_ITS | Encounter Summary ---
Author Organization [facility] Address [address] [place] [address]. 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 Gender Identity Not on file Sexual [...] Diagnosis Comments COLLECTION VENOUS BLOOD VENIPUNCTURE Routine 07/27/2022 7:42 AM CDT 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 ([facility]) Screening for lipid disorders Screening for prostate cancer Screening for endocrine, metabolic and immunity disorder Annual physical exam Encounter for lipid screening for cardiovascular disease TSH W/REFLEX Routine 07/27/2022 7:42 AM CDT 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 ([facility]) Screening for lipid disorders Screening for prostate cancer Screening for endocrine, metabolic and immunity disorder Annual physical exam PROSTATE SPECIFIC ANTIGEN,SCREENING Routine 07/27/2022 7:42 AM CDT 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 ([facility]HCC) Screening for lipid disorders Screening for prostate cancer Screening for endocrine, metabolic and immunity disorder Annual physical exam LIPID PANEL Routine 07/27/2022 7:42 AM CDT 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 PATIENT RESULTS DETERMINED BY ASSAYS FROM DIFFERENT MANUFACTURERS AND/OR BY DIFFERENT METHODS MAY NOT BE COMPARABLE. 07/27/2022 7:42 AM CDT Ryan Maloney DO LABORATORY Final Re sult [facility] [address] [place] [address], [place] [phone] * LIPID PANEL (07/27/2022 7:42 AM CDT) CHOLESTEROL 130 <200 MG/DL 07/27/2022 4:10 PM CDT [facility] TRIGLYCERIDES 57 <150 MG/DL 07/27/2022 4:10 PM CDT [facility] HDL 41 >40 MG/DL 07/27/2022 4:10 PM CDT [facility] LDL-C 78 <100 MG/DL 07/27/2022 4:10 PM CDT [facility] VLDL CALCULATION 11 5 - 28 MG/DL 07/27/2022 4:10 PM CDT [facility] CHOL/HDL RATIO 3.2 0.0 - 4.0 07/27/2022 4:10 PM CDT [facility] LDL/HDL 1.9 0.41 - 2.13 07/27/2022 4:10 PM CDT [facility] NON HDL CHOLESTEROL 89 <140 MG/DL 07/27/2022 4:10 PM CDT [facility] 07/27/2022 7:42 AM CDT Ryan Maloney DO LABORATORY Final Re sult [facility] [address] [place] [address], [place] [phone] * TSH W/REFLEX (07/27/2022 7:42 AM CDT) TSH 2.020 0.358 - 3.740 uIU/ML 07/27/2022 4:10 PM CDT [facility] 07/27/2022 7:42 AM CDT Ryan Maloney DO LABORATORY Final Re sult [facility] [address] [facility] [place] [address], documented in this encounter Visit Diagnoses Diagnosis 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 Chronic lymphocytic leukemia (CMS/HCC HHS/HCC) Chronic lymphoid leukemia, without mention of having achieved remission Screening for lipid disorders Screening for prostate cancer Special screening for malignant neoplasm of prostate Screening for endocrine, metabolic and immunity disorder Annual physical exam Routine general medical examination at a health care facility Encounter for lipid screening for cardiovascular disease documented in this encounter Additional Health Concerns Assessment Noted Time PHQ-9 Depression Total Score: 1 06/09/19 21 9:12 AM CDT documented as of this encounter Care Teams Design Painter Relationship Specialty Start Date End Date Ryan Maloney DO [address] [place] [address] PCP - General FAMILY PRACTICE 04/20/18 documented as of this encounter
--- OUTSIDE RECORDS SUMMARY | 2024-02-22 10:59 | XMS_ITS | Encounter Summary ---
Author Organization [facility] Address [address] [place] [address]. 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 No / Unsure 07/26/2021 10:27 AM CDT documented as of this encounter Progress Notes * Hamida Sharma MA - 08/02/2021 5:04 PM CDT Patient notified and v/u * Hamida Sharma MA - 08/02/2021 5:03 PM CDT ----- Message from Ryan Maloney DO sent at 08/01/2021 1:02 PM CDT ----- Labs are WNL. Repeat in 1 year. documented in this encounter Plan of Treatment Not on file documented as of this encounter Visit Diagnoses Not on filedocumented in this encounter Additional Health Concerns Assessment Noted Time PHQ-9 Depression Total Score: 1 06/09/19 21 9:12 AM CDT documented as of this encounter Care Teams Bottom Loader Relationship Specialty Start Date End Date Ryan Maloney DO [address] [place] [address] PCP - General FAMILY PRACTICE 04/20/18 documented as of this encounter
--- OUTSIDE RECORDS SUMMARY | 2024-02-22 10:59 | XMS_ITS | Encounter Summary ---
Author Organization [facility] Address [address] [place] [address]. 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 Gender Identity Not on file Sexual Orientation Not on file documented as of this encounter Plan of Treatment Not on file documented as of this encounter Procedures Procedure Name Priority Date/Time Associated Diagnosis Comments OUTSIDE LAB (SCAN ORDER) 04/08/2022 OUTSIDE LAB (SCAN ORDER) 04/08/2022 documented in this encounter Results * OUTSIDE LAB (SCAN) (04/08/2022) 04/08/2022 us [facility] Scanned SCANNING Final Resu lt * OUTSIDE LAB (SCAN) (04/08/2022) 04/08/2022 us [facility] Scanned SCANNING Final Resu lt documented in this encounter Visit Diagnoses Not on filedocumented in this encounter Additional Health Concerns Assessment Noted Time PHQ-9 Depression Total Score: 1 06/09/19 21 9:12 AM CDT documented as of this encounter Care Teams Watch And Clock Repair Clerk Relationship Specialty Start Date End Date Ryan Maloney DO [address] [place] [address] PCP - General FAMILY PRACTICE 04/20/18 documented as of this encounter
--- OUTSIDE RECORDS SUMMARY | 2024-02-22 10:59 | XMS_ITS | Encounter Summary ---
Author Organization [facility] Address [address] [place] [address]. 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 us Documents Scanned SCANNING Final Result * OUTSIDE LAB (SCAN) (03/30/2021) 03/30/2021 Narrative 03/30/2021 Ordered by an unspecified provider. us Documents Scanned SCANNING Final Result * OUTSIDE LAB (SCAN) (03/30/2021) 03/30/2021 Narrative 03/30/2021 Ordered by an unspecified provider. us Documents Scanned SCANNING Final Result documented in this encounter Visit Diagnoses Not on filedocumented in this encounter Additional Health Concerns Assessment Noted Time PHQ-9 Depression Total Score: 1 06/09/19 21 9:12 AM CDT documented as of this encounter Care Teams Service Captain Relationship Specialty Start Date End Date Ryan Maloney DO [address] [place] [address] PCP - General FAMILY PRACTICE 04/20/18 documented as of this encounter
--- OUTSIDE RECORDS SUMMARY | 2024-02-22 10:59 | XMS_ITS | Encounter Summary ---
Author Organization [facility] Address [address] [place] [address]. [place], [place] [address] [place] [address] Care Team Providers Care Senior Quality Control Inspector Name Role Phone Ryan Ltitle DO Primary Care Provider + Reason for Referral * Consultation (Routine) - Closed Specialty Diagnoses / Procedures Referred By Ana martin Referred To Contact OPHTHALMOLOGY Diagnoses Eye exam, routine Procedures OFFICE/OUTPT VISIT,NEW,LEVL III OFFICE/OUTPT VISIT,NEW,LEVL IV OFFICE/OUTPT VISIT,NEW,LEVL V OFFICE/OUTPT VISIT,EST,LEVL III OFFICE/OUTPT VISIT,EST,LEVL IV OFFICE/OUTPT VISIT,EST,LEVL V Ryan Little DO [address] [place] [address] Phone: tel: fax: Sukhjinder Kruse MD [address] [place] [address] Phone: tel: fax: Referral ID Status Reason Start Date Expiration Date V isits Requested Visits Authorized [id number] Closed Specialty Services 03/18/2022 03/18/2023 99 99 Scheduling Instructions 's name: Dr. Sukhjinder Kruse Specialty:Size Mixer Reason for referral (diagnosis): eye exam Phone number: [phone] Fax number: [phone] Insurance: [facility] Appointment: 05/16 TECHNICIAN Reason for Visit * Reason Onset Date Comments Referral Request 03/16/2022 Encounter Details Date Type Department Care Team (Late st Contact Info) Description 03/16/2022 Telephone [facility] Family & Internal Medicine [facility] [address] [place] [address] Ryan Little DO [address] [place] [address] Referral Request Social History Tobacco Use Types Packs/Day [...] on file 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 TECHNICIAN * Amanda Sunshine - 03/16/2022 2:20 PM CST The patient called for a referral to the following physician: 's name: Dr. Sukhjinder Kruse Specialty:Size Mixer Reason for referral (diagnosis): eye exam Phone number: [phone] Fax number: [phone] Insurance: [employer] Appointment: 05/16 NPI # Tax ID # Patient call back #: [phone] Last office visit at this office: Last visit with RYAN LITTLE in FAMILY PRACTICE was on: 06/21/2021 in [facility] Future appointment scheduled: No future appointments. TECHNICIAN documented in this encounter Plan of Treatment Scheduled Referrals Name Type Priority Associated Diagnoses Orde r Schedule Ambulatory Referral to Ophthalmology Referral Routine Eye exam, routine Ordered: 03/18/2022 documented as of this encounter Visit Diagnoses Diagnosis Eye exam, routine- Primary documented in this encounter Additional Health Concerns Assessment Noted Time PHQ-9 Depression Total Score: 1 06/09/19 21 9:12 AM CDT documented as of this encounter Care Teams Senior Quality Control Inspector Relationship Specialty Start Date End Date Ryan Little DO [facility] [place] [address] PCP - General FAMILY PRACTICE 04/20/18 documented as of this encounter
--- OUTSIDE RECORDS SUMMARY | 2024-02-22 10:59 | XMS_ITS | Encounter Summary ---
Author Organization [facility] Address [address] [place] [address]. [place], [place] [id number] [place] [address] Care Team Providers Care Folding Rules Printing Machine Operator Name Role Phone Ryan Maloney DO Primary Care Provider + Reason for Referral * Consultation (Routine) - Closed Specialty Diagnoses / Procedures Referred By Ana martin Referred To Contact GASTROENTEROLOGY Diagnoses Screening for malignant neoplasm of colon Ryan Maloney DO [address] [place] [address] Phone: tel: fax: Tj Saenz MD [address] [facility] 162 [facility] [address] [place] [address] Phone: tel: fax: Referral ID Status Reason Start Date Expiration Date Visits Re quested Visits Authorized [id number] Closed 06/21/2021 07/22/2022 100 100 Reason for Visit * Reason Comments Physical yearly Encounter Details Date Type Department Care Team (Late st Contact Info) Description 06/21/2021 7:20 AM CDT Office Visit [facility] Family & Internal Medicine [facility] [address] [place] [phone] Ryan Maloney DO [address] [place] [address] Physical (yearly) Social History Tobacco Use Types Packs/Day Years [...] on file 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 No / Unsure 06/20/2021 9:14 AM CDT documented as of this encounter Last Filed Vital Signs Vital Sign Reading Time Taken Comments Blood Pressure 133/78 06/21/2021 7:16 AM CDT Pulse 73 06/21/2021 7:16 AM CDT Temperature 36.7 ??C (98 ??F) 06/21/2021 7:16 AM CDT Respiratory Rate 16 06/21/2021 7:16 AM CDT Oxygen Saturation 98% 06/21/2021 7:16 AM CDT Inhaled Oxygen Concentration - - Weight 73.9 kg (163 lb) 06/21/2021 7:16 AM CDT Height 171.5 cm (5' 7.5 ) 06/21/2021 7:16 AM CDT Body Mass Index 25.15 06/21/2021 7:16 AM CDT documented in this encounter Progress Notes * Ryan Maloney DO - 06/21/2021 7:20 AM CDT Images from the original note were not included. GENERAL OFFICE VISIT Encounter Date: 06/21/2021 Chief Complaint: 75-year-old male presents for Physical (yearly) HPI: Pt has hx of CLL. Pt sees Dr. Little, last visit in March 2021. Pt is asymptomatic. Pt has labs done by them. He is still on folic acid and iron supplementation, but he did have some elevated ironlevels. He will be seen again in the next few months. General Health: fair Dental Health: Sees dentist regularly Vision Health: Wears glasses Has patient seen an classroom paraprofessional in the last year: Yes Hearing Health: Tinnitus Immunizations Needed: Had Shingles vaccine Weight: Overweight Body mass index is 25.15 kg/m??. Physical Activity: Excersises regularly Prostate Cancer Screening: Due in July Colorectal Cancer Screening: Due Metabolic Screening: Patient has not been screened previously within the past year. HCV Screening: Patient has negative screening on 07/27/2020 PHQ-2 Screening Score: 0 Smoking Status: History Smoking Status ??? Former Smoker ??? Packs/day: 1.50 ??? Years: 3.00 ??? Types: Cigarettes ??? Quit date: 1967 Smokeless Tobacco ??? Never Used Patient does not meet criteria for Low Dose CT screening Patient meets criteria for AAA screening: Negative testing Sleep Apnea Risk Factors: >50yo and Male Urinary Incontinence: No Severity: None Suggested follow up measures for bladder control:N/A Fall Risk: No Pt has GERD. Pt has been on Protonix. He has never tried Pepcid prior to now. He is willing to try this. Review of Systems Constitutional: Negative for fever. HENT: Negative for hearing loss. Eyes: Negative for blurred vision. Respiratory: Negative for shortness of breath. Cardiovascular: Negative for chest pain. Gastrointestinal: Negative for abdominal pain, nausea and vomiting. Genitourinary: Negative for dysuria. Psychiatric/Behavioral: Negative for depression. Patient Active Problem List Diagnosis ??? Chronic lymphocytic leukemia (CMS/HCC) ??? Autoimmune hemolytic anemia (CMS/HCC) ??? Other chest pain ??? Gastroesophageal reflux disease, esophagitis presence not specified ??? BMI 25.0-25.9,adult ??? Puncture wound ??? SOB (shortness of breath) ??? History of tobacco use ??? Iron overload ??? Laceration of left ring finger Past Medical History: Diagnosis Date ??? Anemia ??? Cataract ??? Chronic lymphocytic leukemia (CMS/HCC) ??? GERD (gastroesophageal reflux disease) Past Surgical History: Procedure Laterality Date ??? CHOLECYSTECTOMY ??? EXCISION BASAL CELL CARCINOMA ??? KNEE ARTHROSCOPY Right knee ??? REMOVAL OF SPERM DUCT(S) ??? TRANSURETHRAL RESECTION OF BLADDER Family History Problem Relation Name Age of Onset ??? Cancer Mother Margmakayla skin ??? Heart Disease Maternal Grandmother Verrosa ??? Cancer Sister Radha Social History Socioeconomic History ??? Marital status: Spouse name: Not on file ??? Number of children: 2 ??? Years of education: Not on file ??? Highest education level: Not on file Occupational History ??? Not on file Tobacco Use ??? Smoking status: Former Smoker Packs/day: 1.50 Years: 3.00 Pack years: 4.50 Types: Cigarettes Quit date: 1967 Years since quittin.4 ??? Smokeless tobacco: Never Used Substance and Sexual Activity ??? Alcohol use: No ??? Drug use: No ??? Sexual activity: Not on file Other Topics Concern ??? Not on file Social History Narrative ??? Not on file Social Determinants of Health Financial Resource Strain: Not on file Food Insecurity: Not on file Transportation Needs: Not on file Physical Activity: Not on file Stress: Not on file Social Connections: Not on file Intimate Partner Violence: Not on file Immunization History Administered Date(s) Administered ??? Flublok (Quadrivalent) 12/05/2018 ? ? Fluzone High Dose - >Age 65 (Prefilled Syringe) 11/29/2013, 11/25/2014, 12/02/2015, 11/24/2016, 11/29/2017, 12/01/2017, 11/12/2019, 11/02/2020 ??? Influenza 12/10/2011, 12/11/2012, 11/24/2017 ??? Influenza Adult (Generic) 12/11/2012, 11/29/2013, 11/25/2014, 12/02/2015, 11/24/2016, 11/29/2017, 12/01/2017, 12/08/2018 ??? PFIZER COVID-19 (ORIGINAL FORMULATION, PURPLE CAP), MRNA, LNP-S, PF, 30 MCG/0.3 ML DOSE 04/13/2020, 05/04/2020, 12/15/2020 ??? Pneumococcal (Pneumovax 23) 01/17/2018 ??? Pneumococcal (Prevnar 13) 04/26/2019 ??? Tdap (Boostrix) 06/08/2020 ??? Zoster (Zostavax) 0[address]16 Unt/0.65Ml 12/09/2009 Current Outpatient Medications Medication Sig Dispense Refill ??? B Mypkwkr-B-Ydicz Acid (DIATX OR) Take 1 tablet by mouth daily. ??? Bioflavonoid Products (MICHAEL C OR) Take 1,000 mg by mouth daily. ??? Calcium Carbonate Antacid (CALCIUM CARBONATE OR) Take 600 mg by mouth daily. ??? Cholecalciferol (VITAMIN D3) 2000 units Tab Take 4,000 Units by mouth daily. ??? Cinnamon Bark Powder Take 1,200 mg by mouth daily. ??? famotidine 20 MG tablet Take 1 tablet (20 mg total) by mouth 2 (two) times daily. 180 tablet 3 ??? Cizova-Qasmk-Rhmw Ac-Ca Fructo ([employer] [facility]) Tab Take 1 tablet by mouth daily. ??? magnesium oxide 250 MG tablet Take 250 mg by mouth daily. ??? omega-3 fatty acid 500 MG capsule Take 1,000 mg by mouth daily. ??? tamsulosin 0.4 MG Cap Take 0.4 mg by mouth nightly at bedtime. ??? Zinc Acetate, Oral, (GALZIN OR) Take 1 tablet by mouth daily. 15 mg once daily ??? zoster vaccine (SHINGRIX) injection Inject 0.5 mLs into the muscle once for 1 dose. Repeat in 2-6 months 1 each 0 No current facility-administered medications for this visit. Current Outpatient Medications on File Prior to Visit Medication Sig ??? B Uupxnlg-I-Mhmrx Acid (DIATX OR) Take 1 tablet by mouth daily. ??? Bioflavonoid Products (MICHAEL C OR) Take 1,000 mg by mouth daily. ??? Calcium Carbonate Antacid (CALCIUM CARBONATE OR) Take 600 mg by mouth daily. ??? Cholecalciferol (VITAMIN D3) 2000 units Tab Take 4,000 Units by mouth daily. ??? Cinnamon Bark Powder Take 1,200 mg by mouth daily. ??? Mazhfh-Bwgjw-Ttjm Ac-Ca Fructo ([employer] [facility]) Tab Take 1 tablet by mouth daily. ??? magnesium oxide 250 MG tablet Take 250 mg by mouth daily. ??? omega-3 fatty acid 500 MG capsule Take 1,000 mg by mouth daily. ??? tamsulosin 0.4 MG Cap Take 0.4 mg by mouth nightly at bedtime. ??? Zinc Acetate, Oral, (GALZIN OR) Take 1 tablet by mouth daily. 15 mg once daily No current facility-administered medications on file prior to visit. Allergies Allergen Reactions ??? [place] [Hydrocodone-Acetaminophen] Nausea Only Objective: Filed Vitals: 06/21/21 0716 BP: 133/78 Pulse: 73 Resp: 16 Temp: 98 ??F (36.7 ??C) TempSrc: Skin SpO2: 98% Weight: 73.9 kg (163 lb) Height: 5' 7.5 (1.715 m) Physical Exam Vitals and nursing note reviewed. Constitutional: General: He is not in acute distress. HENT: Head: Normocephalic and atraumatic. Right Ear: Tympanic membrane, ear canal and external ear normal. Left Ear: Tympanic membrane, ear canal and [...] & Plan: Richard was seen today for physical. Diagnoses and all orders for this visit: Chronic lymphocytic leukemia (CMS/HCC) - CBC W/DIFF AUTOMATED; Future - CBC W/DIFF AUTOMATED 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CMS/HCC) Need for shingles vaccine - zoster vaccine (SHINGRIX) injection; Inject 0.5 mLs into the muscle once for 1 dose. Repeat in 2-6 months BMI 25.0-25.9,adult Screening for lipid disorders - LIPID PANEL; Future - LIPID PANEL Screening for prostate cancer - PROSTATE SPECIFIC ANTIGEN,SCREENING; Future - PROSTATE SPECIFIC ANTIGEN,SCREENING Screening for endocrine, metabolic and immunity disorder - CBC W/DIFF AUTOMATED; Future - COMPREHENSIVE METABOLIC PANEL; Future - TSH W/REFLEX; Future - Cancel: VENIPUNC ARM DRAW - CBC W/DIFF AUTOMATED - COMPREHENSIVE METABOLIC PANEL - TSH W/REFLEX Screening for malignant neoplasm of colon - Ambulatory referral to Gastroenterology (OTHER) Gastroesophageal reflux disease without esophagitis - famotidine 20 MG tablet; Take 1 tablet (20 mg total) by mouth 2 (two) times daily. Discussion/Summary: Continue follow-up with Dr. Little for CLL. Stable at this time. Will order labs per above. Will switch from Protonix to Pepcid. Can switch back to Protonix if needed. Will refer for colonoscopy. Recommend shingles shot and COVID-vaccine. Will have patient follow-up in 1 year or sooner if needed. Patient verbalized understanding. I spent 30 minutes today reviewing the patient's medical record, obtaining history, performing an exam, ordering medications, tests, and/or procedures, documenting in the medical record and counseling and educating the patient/family/caregiver. Ryan Maloney DO documented in this encounter Plan of Treatment Scheduled Referrals Name Type Priority Associated Diagnoses Orde r Schedule Ambulatory referral to Gastroenterology (OTHER) Referral Routine Screening for malignant neoplasm of colon Ordered: 06/21/2021 documented as of this encounter Procedures Procedure Name Priority Date/Time Associated Diagnosis Comments TSH W/REFLEX Routine 07/27/2021 8:47 AM CDT Screening for endocrine, metabolic and immunity disorder PROSTATE SPECIFIC ANTIGEN,SCREENING Routine 07/27/2021 8:47 AM CDT Screening for prostate cancer LIPID PANEL Routine 07/27/2021 8:47 AM CDT Screening for lipid disorders documented in this encounter Results * PROSTATE SPECIFIC ANTIGEN,SCREENING (07/27/2021 8:47 AM CDT) PSA 1.3 0.0 - 4.0 ng/mL [facility] Comment: Kristan ECLIA methodology. According to the [place] [employer], Serum PSA should decrease and remain at undetectable levels after radical prostatectomy. The AUA defines biochemical recurrence as an initial PSA value 0.2 ng/mL or greater followed by a subsequent confirmatory PSA value 0.2 ng/mL or greater. Values obtained with different assay methods or kits cannot be used interchangeably. Results cannot be interpreted as absolute evidence of the presence or absence of malignant disease. 07/27/2021 8:47 AM CDT 07/27/2021 Narrative [facility] - 07/28/2021 8:16 AM CDT Performed at: ??01 - [address] ??[id number] Audio Visual Production Specialist: Hay Goodwin PhD, Phone: ??[phone] us Ryan Maloney DO LABORATORY Final Re sult [facility] [address] [place] [address] [facility] * LIPID PANEL (07/27/2021 8:47 AM CDT) CHOLESTEROL 134 100 - 199 mg/dL [facility] 1 TRIGLYCERIDES 106 0 - 149 mg/dL [facility] 1 HDL 42 >39 mg/dL [facility] 1 VLDL CALCULATION 20 5 - 40 mg/dL [facility] LDL (CALCULATED) 72 0 - 99 mg/dL [facility] 1 07/27/2021 8:47 AM CDT 07/27/2021 Narrative [facility] - 07/28/2021 8:16 AM CDT Performed at: ??01 - [address] ??[id number] Audio Visual Production Specialist: Hay Goodwin PhD, Phone: ??[phone] Ryan Maloney DO LABORATORY Final Re sult Performing Organization Address [facility] Co de Phone Number [facility] [address] [place] [address] [facility] * TSH W/REFLEX (07/27/2021 8:47 AM CDT) TSH 2.490 0.450 - 4.50 uIU/mL [facility] 1 07/27/2021 8:47 AM CDT 07/27/2021 Narrative [facility] - 07/28/2021 8:16 AM CDT Performed at: ??01 - [facility] [address] ??[id number] Audio Visual Production Specialist: Hay Goodwin PhD, Phone: ??[phone] Ryan Maloney DO LABORATORY Final Re sult Performing Organization Address [facility] Co de Phone Number [facility] [address] [place] [address] [facility] 1 documented in this encounter Visit Diagnoses Diagnosis Chronic lymphocytic leukemia ([facility])- Primary Chronic lymphoid leukemia, without mention of having achieved remission 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[facility]) Autoimmune hemolytic anemias Need for shingles vaccine Need for prophylactic vaccination and inoculation against other viral diseases BMI 25.0-25.9,adult Body Mass Index 25.0-25.9, adult Screening for lipid disorders Screening for prostate cancer Special screening for malignant neoplasm of prostate Screening for endocrine, metabolic and immunity disorder Screening for malignant neoplasm of colon Gastroesophageal reflux disease without esophagitis Esophageal reflux documented in this encounter Additional Health Concerns Assessment Noted Time PHQ-9 Depression Total Score: 1 06/09/19 21 9:12 AM CDT documented as of this encounter Care Teams Folding Rules Printing Machine Operator Relationship Specialty Start Date End Date Ryan Maloney DO [address] [place] [address] PCP - General FAMILY PRACTICE 04/20/18 documented as of this encounter
--- OUTSIDE RECORDS SUMMARY | 2024-02-22 10:59 | XMS_ITS | Encounter Summary ---
Author Organization [facility] Address [address] [place] [address]. [place], [place] [address] [place] [address] Care Team Providers Care Pals Specialist Name Role Phone Ryan Maloney DO Primary Care Provider + Reason for Visit * Reason Onset Date Comments Radiology Results 06/17/2020 Encounter Details Date Type Department Care Team (Late st Contact Info) Description 06/17/2020 Telephone [facility] Family & Internal Medicine 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 No / Unsure 06/08/2020 8:48 AM CDT documented as of this encounter Progress Notes * Hamida Sharma MA - 06/18/2020 11:56 AM CDT Patient notified and v/u * Ryan Maloney DO - 06/17/2020 3:50 PM CDT Please let patient know we have the results of his screening abdominally aorta ultrasound from 06/09/2020. It was within normal limits. We do not need to repeat this at this time. documented in this encounter Plan of Treatment Not on file documented as of this encounter Visit Diagnoses Not on filedocumented in this encounter Additional Health Concerns Assessment Noted Time PHQ-9 Depression Total Score: 1 06/09/19 21 9:12 AM CDT documented as of this encounter Care Teams Pals Specialist Relationship Specialty Start Date End Date Ryan Maloney DO [address] [place] [address] PCP - General FAMILY PRACTICE 04/20/18 documented as of this encounter
--- OUTSIDE RECORDS SUMMARY | 2024-02-22 10:59 | XMS_ITS | Encounter Summary ---
Author Organization [facility] Address [address] [place] [address]. 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 No / Unsure 06/21/2022 7:09 AM CDT documented as of this encounter Plan of Treatment Not on file documented as of this encounter Visit Diagnoses Not on filedocumented in this encounter Additional Health Concerns Assessment Noted Time PHQ-9 Depression Total Score: 1 06/09/19 21 9:12 AM CDT documented as of this encounter Care Teams Cheese Packer Relationship Specialty Start Date End Date Ryan Maloney DO [address] [place] [address] PCP - General FAMILY PRACTICE 04/20/18 documented as of this encounter
--- OUTSIDE RECORDS SUMMARY | 2024-02-22 10:59 | XMS_ITS | Encounter Summary ---
Author Organization [facility] Address [address] [place] [address]. 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 Gender Identity Not on file Sexual Orientation Not on file documented as of this encounter Progress Notes * Jevon Burns - 06/14/2022 12:47 PM CDT Preventive Screenings: Breast Cancer Screening: N/A Notes: Colorectal Cancer Screening: N/A Notes: Diabetic Eye Exam: N/A Notes: Falls Risk Screening: Needs Follow Up Notes: Tobacco Cessation: N/A Notes: Labs: BMP/CMP: N/A Notes: Hemoglobin A1c: N/A Notes: Lipid: N/A Notes: Urine Albumin-Creatinine Ratio: N/A Notes: Immunizations: Pneumococcal: Up to Date Notes: Shingles: Needs Follow Up Notes: documented in this encounter Plan of Treatment Not on file documented as of this encounter Visit Diagnoses Not on filedocumented in this encounter Additional Health Concerns Assessment Noted Time PHQ-9 Depression Total Score: 1 06/09/19 21 9:12 AM CDT documented as of this encounter Care Teams Impregnation Operator Relationship Specialty Start Date End Date Ryan Maloney DO [address] [place] [address] PCP - General FAMILY PRACTICE 04/20/18 documented as of this encounter
--- OUTSIDE RECORDS SUMMARY | 2024-02-22 10:59 | XMS_ITS | Encounter Summary ---
Author Organization [facility] Address [address] [place] [address]. [place], [place] [address] [place] [address] Care Team Providers Care Secretary To The Vice President Name Role Phone Ryan Maloney DO Primary Care Provider + Encounter Details Date Type Department Care Team (Late st Contact Info) Description 07/27/2021 8:00 AM CDT Laboratory Only 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 No / Unsure 07/26/2021 10:27 AM CDT documented as of this encounter Plan of Treatment Not on file documented as of this encounter Procedures Procedure Name Priority Date/Time Associated Diagnosis Comments COLLECTION VENOUS BLOOD VENIPUNCTURE Routine 07/27/2021 1:31 PM CDT Screening for lipid disorders Screening for prostate cancer Screening for endocrine, metabolic and immunity disorder documented in this encounter Visit Diagnoses Diagnosis Screening for lipid disorders- Primary Screening for prostate cancer Special screening for malignant neoplasm of prostate Screening for endocrine, metabolic and immunity disorder documented in this encounter Additional Health Concerns Assessment Noted Time PHQ-9 Depression Total Score: 1 06/09/19 21 9:12 AM CDT documented as of this encounter Care Teams Secretary To The Vice President Relationship Specialty Start Date End Date Ryan Maloney DO [address] [place] [address] PCP - General FAMILY PRACTICE 04/20/18 documented as of this encounter
--- OUTSIDE RECORDS SUMMARY | 2024-02-22 10:59 | XMS_ITS | Encounter Summary ---
Author Organization [facility] Address [address] [place] [address]. 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
--- OUTSIDE RECORDS SUMMARY | 2024-02-22 10:59 | XMS_ITS | Encounter Summary ---
Author Organization [facility] Address [address] [place] [address]. 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
--- OUTSIDE RECORDS SUMMARY | 2024-02-22 10:59 | XMS_ITS | Encounter Summary ---
Author Organization [facility] Address [address] [place] [address]. [place], [place] [address] [place] [address] Care Team Providers Care Bell Attendant Name Role Phone Ryan Maloney DO Primary Care Provider + Reason for Visit * Reason Comments Medicare Wellness Patient presents for annual wellness. Encounter Details Date Type Department Care Team (Late st Contact Info) Description 06/21/2022 7:20 AM CDT Office Visit [facility] Family & Internal Medicine [address] [place] [address] Ryan Maloney DO [facility] [place], [place] [id number] Medicare Wellness (Patient presents for annual wellness. 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 No / Unsure 06/21/2022 7:09 AM CDT documented as of this encounter Last Filed Vital Signs Vital Sign Reading Time Taken Comments Blood Pressure 120/66 06/21/2022 7:22 AM CDT Pulse 59 06/21/2022 7:22 AM CDT Temperature 36.6 ??C (97.9 ??F) 06/21/2022 7:22 AM CD T Respiratory Rate 16 06/21/2022 7:22 AM CDT Oxygen Saturation 97% 06/21/2022 7:22 AM CDT Inhaled Oxygen Concentration - - Weight 74.9 kg (165 lb 1.6 oz) 06/21/2022 7:22 A M CDT Height 171.5 cm (5' 7.5 ) 06/21/2022 7:22 AM CDT Body Mass Index 25.48 06/21/2022 7:22 AM CDT documented in this encounter Patient Instructions * Patient Instructions* Ryan Maloney DO - 06/21/2022 7:20 AM CDT You can use Debrox on the left ear to see if this helps with your wax buildup. If it does not, callto schedule a cleaning with us. * Attachments The following attachments cannot be sent through Care Everywhere. * Yearly Physical for Adults (Ivorian) documented in this encounter Progress Notes * Ryan Maloney DO - 06/21/2022 7:20 AM CDT Images from the original note were not included. GENERAL OFFICE VISIT Encounter Date: 06/21/2022 Chief Complaint: 76-year-old male presents for Medicare Wellness (Patient presents for annual wellness. ) HPI: General Health: good Dental Health: Sees dentist regularly Vision Health: Wears glasses Has patient seen an eye clinic manager in the last year: Yes, Dr. Wigton Hearing Health: Tinnitus Immunizations Needed: Had Shingles vaccine but is not available in system other than Zostavax Weight: Overweight Body mass index is 25.48 kg/m??. Physical Activity: Excersises regularly Prostate Cancer Screening: Normal last July Colorectal Cancer Screening: Colonoscopy last done: 09/15/21, repeat in 5 years Metabolic Screening: Patient has not been screened previously within the past year. HCV Screening: Patient has negative screening on 07/27/2020 PHQ-2 Screening Score: 0 Smoking Status: History Smoking Status Former Packs/day: 1.50 Years: 3.00 Types: Cigarettes Quit date: 1967 Smokeless Tobacco Never Patient does not meet criteria for Low Dose CT screening Patient meets criteria for AAA screening: Negative testing Sleep Apnea Risk Factors: >50yo and Male Urinary Incontinence: No Severity: None Suggested follow up measures for bladder control: N/A Fall Risk: No Pt has GERD. Pt is now on Pepcid. He is stable at this time. Pt has CLL and cold agglutinin. Pt sees Dr. Little, last visit in March 2022. Pt is asymptomatic. Pt has been stable otherwise. Review of Systems Constitutional: Negative for fever. HENT: Negative for hearing loss. Eyes: Negative for blurred vision. Respiratory: Negative for shortness of breath. Cardiovascular: Negative for chest pain. Gastrointestinal: Negative for abdominal pain, nausea and vomiting. Genitourinary: Negative for dysuria. Skin: Negative for rash. Psychiatric/Behavioral: Negative for depression. Patient Active Problem List Diagnosis Chronic lymphocytic leukemia (CMS/HCC) Autoimmune hemolytic anemia (CMS/HCC) Other chest pain Gastroesophageal reflux disease, esophagitis presence not specified BMI 25.0-25.9,adult Puncture wound SOB (shortness of breath) History of tobacco use Iron overload Laceration of left ring finger Past Medical History: Diagnosis Date Anemia Cataract Chronic lymphocytic leukemia (CMS/HCC) GERD (gastroesophageal reflux disease) Past Surgical History: [...] on file Tobacco Use Smoking status: Former Packs/day: 1.50 Years: 3.00 Pack years: 4.50 Types: Cigarettes Quit date: 1968 Years since quittin.4 Passive exposure: Never Smokeless tobacco: Never Substance and Sexual Activity Alcohol use: No [...] 11/25/2014, 12/02/2015, 11/24/2016, 11/29/2017, 12/01/2017, 11/12/2019, 11/02/2020 Influenza 12/10/2011, 12/11/2012, 11/24/2017, 12/05/2018 Influenza Adult (Generic) 12/11/2012, 11/29/2013, 11/25/2014, 12/02/2015, 11/24/2016, 11/29/2017, 12/01/2017, 12/08/2018, 11/16/2021 PFIZER COVID-19 (ORIGINAL FORMULATION, PURPLE CAP) mRNA, LNP-S, PF, 30 MCG/0.3 ML DOSE 04/13/2020, 05/04/2020 Pneumococcal (Pneumovax 23) 01/17/2018 Pneumococcal (Prevnar 13) 04/26/2019 Tdap (Boostrix) 06/08/2020 Zoster (Zostavax) 95164 Unt/0.65Ml 12/09/2009 Current Outpatient Medications Medication Sig Dispense Refill B Pvtyudr-P-Zlopm Acid (DIATX OR) Take 1 tablet by [...] 2 (two) times daily. 180 tablet 3 Vbwvbc-Wvikx-Hzsk Ac-Ca Fructo ([employer] [facility]) Tab Take 1 tablet by mouth daily. magnesium oxide 250 MG tablet Take 1 tablet (250 mg total) by mouth daily. omega-3 fatty acid 500 MG capsule Take 2 capsules (1,000 mg total) by mouth daily. Zinc Acetate, Oral, (GALZIN OR) Take 1 tablet by mouth daily. 15 mg once daily No current facility-administered medications for this visit. Current Outpatient Medications on File Prior to Visit Medication Sig B Xgjbsdd-V-Wozmt Acid (DIATX OR) Take 1 tablet by mouth daily. Calcium Carbonate Antacid (CALCIUM CARBONATE OR) Take 600 mg by mouth daily. Cholecalciferol (VITAMIN D3) 2000 units Tab Take 2 tablets (4,000 Units total) by mouth daily. Cinnamon Bark Powder Take 1,200 mg by mouth daily. Ucqegd-Tluia-Xung Ac-Ca Fructo ([employer] [facility]) Tab Take 1 tablet by mouth daily. magnesium oxide 250 MG tablet Take 1 tablet (250 mg total) by mouth daily. omega-3 fatty acid 500 MG capsule Take 2 capsules (1,000 mg total) by mouth daily. Zinc Acetate, Oral, (GALZIN OR) Take 1 tablet by mouth daily. 15 mg once daily No current facility-administered medications on file prior to visit. Review of patient's allergies indicates: Allergen Reactions [place] [Hydrocodone-Acetaminophen] Nausea Only Objective: Filed Vitals: 06/21/22 0722 BP: 120/66 Pulse: (!) 59 Resp: 16 Temp: 97.9 ??F (36.6 ??C) TempSrc: Skin SpO2: 97% Weight: 74.9 kg (165 lb 1.6 oz) Height: 5' 7.5 (1.715 m) Physical Exam Vitals and nursing note reviewed. Constitutional: General: He is not in acute distress. HENT: Head: Normocephalic and atraumatic. Right Ear: Tympanic membrane, ear canal and external ear normal. Left Ear: External ear normal. There is impacted cerumen. Mouth/Throat: Pharynx: No oropharyngeal exudate. Eyes: General: [...] Diagnoses and all orders for this visit: Encounter for preventative adult health care examination 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CMS/HCC) - PROSTATE SPECIFIC ANTIGEN,SCREENING; Future - LIPID PANEL; Future - TSH W/REFLEX; Future Chronic lymphocytic leukemia (CMS/HCC) - PROSTATE SPECIFIC ANTIGEN,SCREENING; Future - LIPID PANEL; Future - TSH W/REFLEX; Future Annual physical exam - PROSTATE SPECIFIC ANTIGEN,SCREENING; Future - LIPID PANEL; Future - TSH W/REFLEX; Future Screening for lipid disorders - PROSTATE SPECIFIC ANTIGEN,SCREENING; Future - LIPID PANEL; Future - TSH W/REFLEX; Future Screening for prostate cancer - PROSTATE SPECIFIC ANTIGEN,SCREENING; Future - LIPID PANEL; Future - TSH W/REFLEX; Future Screening for endocrine, metabolic and immunity disorder - PROSTATE SPECIFIC ANTIGEN,SCREENING; Future - LIPID PANEL; Future - TSH W/REFLEX; Future Encounter for lipid screening for cardiovascular disease - LIPID PANEL; Future Gastroesophageal reflux disease without esophagitis - famotidine (PEPCID) 20 MG tablet; Take 1 tablet (20 mg total) by mouth 2 (two) times daily. Discussion/Summary: No acute symptoms. Continue follow-up with Dr. Little for CLL and cold agglutinin disease. Stable at this time. Will order labs per above. Continue Pepcid. Recommend Shingrix and COVID vaccine. Will have patient follow-up in 1 year or sooner if needed. Patient verbalized understanding. I personally spent a total of 30 minutes on the day of the encounter. This includes eslq-kc-fwaj and zrx-xqmo-wi-face time I provided on the day of the encounter & excludes time spent performing separately reportable services. Ryan Maloney DO documented in this encounter Plan of Treatment Not on file documented as of this encounter Results * TSH W/REFLEX (07/27/2022 7:42 AM CDT) TSH 2.020 0.358 - 3.740 uIU/ML 07/27/2022 4:10 PM CDT [facility] 07/27/2022 7:42 AM CDT Ryan Maloney DO LABORATORY Final Re sult [facility] [address] [place] [address], * LIPID PANEL (07/27/2022 7:42 AM CDT) CHOLESTEROL 130 <200 MG/DL 07/27/2022 4:10 PM CDT [facility] TRIGLYCERIDES 57 <150 MG/DL 07/27/2022 4:10 PM CDT [facility] HDL 41 >40 MG/DL 07/27/2022 4:10 PM CDT [facility] LDL-C 78 <100 MG/DL 07/27/2022 4:10 PM CDT [facility] VLDL CALCULATION 11 5 - 28 MG/DL 07/27/2022 4:10 PM CDT [facility] CHOL/HDL RATIO 3.2 0.0 - 4.0 07/27/2022 4:10 PM CDT [facility] LDL/HDL 1.9 0.41 - 2.13 07/27/2022 4:10 PM CDT [facility] NON HDL CHOLESTEROL 89 <140 MG/DL 07/27/2022 4:10 PM CDT [facility] 07/27/2022 7:42 AM CDT Ryan Maloney DO LABORATORY Final Re sult Performing Organization Address [facility] Co de Phone Number [facility] [address], [place] [phone] * PROSTATE SPECIFIC ANTIGEN,SCREENING (07/27/2022 7:42 AM CDT) PSA 1.59 <4.00 NG/ML 07/27/2022 2:43 PM CDT [facility] Comment: ASSAY PERFORMED BY [employer] USING [employer]. PATIENT RESULTS DETERMINED BY ASSAYS FROM DIFFERENT MANUFACTURERS AND/OR BY DIFFERENT METHODS MAY NOT BE COMPARABLE. 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[facility]/HCC) Autoimmune hemolytic anemias Chronic lymphocytic leukemia ([facility]) Chronic lymphoid leukemia, without mention of having achieved remission Annual physical exam Routine general medical examination at a health care facility Screening for lipid disorders Screening for prostate cancer Special screening for malignant neoplasm of prostate Screening for endocrine, metabolic and immunity disorder Encounter for lipid screening for cardiovascular disease Gastroesophageal reflux disease without esophagitis Esophageal reflux documented in this encounter Additional Health Concerns Assessment Noted Time PHQ-9 Depression Total Score: 1 06/09/19 21 9:12 AM CDT documented as of this encounter Care Teams Bell Attendant Relationship Specialty Start Date End Date Ryan Maloney DO [address] [place] [address] PCP - General FAMILY PRACTICE 04/20/18 documented as of this encounter
--- OUTSIDE RECORDS SUMMARY | 2024-02-22 10:59 | XMS_ITS | Encounter Summary ---
Author Organization [facility] Address [address] [place] [address]. [place], [place] [id number] [place] [address] Care Team Providers Care Supervisor Pipelines Name Role Phone Ryan Maloney DO Primary Care Provider + Reason for Visit * Reason Onset Date Comments Quality Gap Closure 02/06/2023 Encounter Details Date Type Department Care Team (Late st Contact Info) Description 02/06/2023 Patient Outreach [facility] Medical Group Family & Internal Medicine [address] [place] [address] Ryan Maloney DO [facility] [place], [place] [phone] Quality Gap Closure Social History Tobacco Use Types Packs/Day Years Used Date Smoking Tobacco: Former Cigarettes 1.5 3 1 03/1964 - 1967 Passive Smoke Exposure: Never Smokeless Tobacco: Never Tobacco Cessation:Counseling Given: Not Answered Comments:quit Alcohol Use Standard Drinks/Week Comments No [...] on file 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 If you need to contact me directly- my number is [phone] Preventive Screenings: Breast Cancer Screening: N/A Notes: Colorectal Cancer Screening: N/A Notes: Diabetic Eye Exam: N/A Notes: Falls Risk Screening: Needs Follow Up Notes: Tobacco Cessation: N/A Notes: Labs: BMP/CMP: N/A Notes: Hemoglobin A1c: N/A Notes: Lipid: N/A Notes: Urine Albumin-Creatinine Ratio: N/A Notes: Immunizations: Influenza: Up to Date Notes: Pneumococcal: Up to Date Notes: Shingles: Needs Follow Up Notes: 1 of 2 EQUIPMENT ENGINEER documented in this encounter Plan of Treatment Not on file documented as of this encounter Visit Diagnoses Not on filedocumented in this encounter Additional Health Concerns Assessment Noted Time PHQ-9 Depression Total Score: 1 06/09/19 21 9:12 AM CDT documented as of this encounter Care Teams Supervisor Pipelines Relationship Specialty Start Date End Date Ryan Maloney DO [address] [place] [address] PCP - General FAMILY PRACTICE 04/20/18 documented as of this encounter
--- OUTSIDE RECORDS SUMMARY | 2024-02-22 11:00 | XMS_ITS | Encounter Summary ---
Author Organization [facility] Address [address] [place] [address]. 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
--- OUTSIDE RECORDS SUMMARY | 2024-02-22 11:00 | XMS_ITS | Encounter Summary ---
Author Organization [facility] Address [address] [place] [address]. 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 * Rebekah Bess MA - 08/13/2019 11:57 AM CDT Lm 08/13/19 tn * Rebekah Bess MA - 08/13/2019 11:55 AM CDT ----- Message from GERARDO Morales sent at 08/12/2019 11:01 PM CDT ----- psa was normal documented in this encounter Plan of Treatment Scheduled Orders Name Type Priority Associated Diagnoses Orde r Schedule HEPATITIS C ANTIBODY Lab Routine Need for hepatitis C screening test Expected: 08/16/2019, Expires: 08/15/2020 documented as of this encounter Visit Diagnoses Diagnosis Need for hepatitis C screening test- Primary Special screening examination for other specified viral diseases documented in this encounter Additional Health Concerns Assessment Noted Time PHQ-9 Depression Total Score: 1 04/26/19 20 8:13 AM LANDS RESOURCE MANAGER documented as of this encounter Care Teams Direct Support Worker Relationship Specialty Start Date End Date Ryan Maloney DO [address] [place] [address] PCP - General FAMILY PRACTICE 04/20/18 documented as of this encounter
--- OUTSIDE RECORDS SUMMARY | 2024-02-22 11:00 | XMS_ITS | Encounter Summary ---
Author Organization [facility] Address [address] [place] [address]. 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
--- OUTSIDE RECORDS SUMMARY | 2024-02-22 11:00 | XMS_ITS | Encounter Summary ---
Author Organization [facility] Address [address] [place] [address]. [place], [place] [id number] [place] [id number] Care Team Providers Care Pick Up Driver Name Role Phone Ryan Little DO Primary Care Provider + Reason for Referral * Imaging (Routine) - Closed Specialty Diagnoses / Procedures Referred By Ana martin Referred To Contact RADIOLOGY Diagnoses Screening for AAA (abdominal aortic aneurysm) History of tobacco use Procedures USV AAA SCREENING Ryan Little DO [address] [place] [address] Phone: tel: fax: [facility] [address] [facility] [address] [place] [address] Phone: tel: fax: Referral ID Status Reason Start Date Expiration Date Visits Re quested Visits Authorized [id number] Closed 06/08/2020 07/08/2021 1 1 Reason for Visit * Reason Comments Annual wellness exam and td ap imm Encounter Details Date Type Department Care Team ([facility] st Contact Info) Description 06/08/2020 9:00 AM CDT Office Visit [facility] Family [facility] - [place] [address] [place] [id number] Ryan Little DO [address] [place] [address] Annual (wellness exam and tdap imm) Social History Tobacco Use Types Packs/Day Years [...] on file Legal Sex Male 11:15 AM [employer] Gender Identity Not on file Sexual Orientation Not on file COVID-19 Exposure Response Date Recorded In the last month, have you been in contact with someone who was confirmed or suspected to have Coronavirus / COVID-19? No / Unsure 06/08/2020 8:48 AM CDT documented as of this encounter Last Filed Vital Signs Vital Sign Reading Time Taken Comments Blood Pressure 136/60 06/08/2020 9:07 AM CDT Pulse 60 06/08/2020 9:07 AM CDT Temperature 36.8 ??C (98.3 ??F) 06/08/2020 9:07 AM CD T Respiratory Rate 16 06/08/2020 9:07 AM CDT Oxygen Saturation 99% 06/08/2020 9:07 AM CDT Inhaled Oxygen Concentration - - Weight 75.7 kg (166 lb 12.8 oz) 06/08/2020 9:07 AM CDT Height 171.5 cm (5' 7.5 ) 06/08/2020 9:07 AM CDT Body Mass Index 25.74 06/08/2020 9:07 AM CDT documented in this encounter Progress Notes * Angelina Washington RRT - 06/08/2020 9:00 AM CDTAddended by: ANGELINA WASHINGTON on: 07/28/2020 12:18 PM Modules accepted: Orders * Angelina Washington RRT - 06/08/2020 9:00 AM CDTAddended by: ANGELINA WASHINGTON on: 07/28/2020 12:24 PM Modules accepted: Orders * Ryan P Haider, DO - 06/08/2020 9:00 AM CDT Images from the original note were not included. GENERAL OFFICE VISIT Encounter Date: 06/08/2020 Chief Complaint: 74-year-old male presents for Annual (wellness exam and tdap imm) HPI: Pt has hx of CLL. Pt sees Dr. Little, last visit in January 2020. Pt is asymptomatic. Pt has labs done by them. He is still on folic acid and iron supplementation. He will be seen in July. General Health: fair Dental Health: Sees dentist regularly Vision Health: Wears glasses Has patient seen an hook and eye machine operator in the last year: Due, but not scheduled Hearing Health: Tinnitus Immunizations Needed: Needs Tdap, had recent puncture wound Weight: Overweight Body mass index is 25.74 kg/m??. Physical Activity: Excersises regularly Prostate Cancer Screening: last PSA: 1.4 Colorectal Cancer Screening: Due, will do with Dr. Jay Metabolic Screening: Patient has not been screened previously within the past year. HCV Screening: Patient does meet criteria and needs testing today PHQ-9 Screening Score: 1 Smoking Status: History Smoking Status ??? Former Smoker ??? Packs/day: 1.50 ??? Years: 3.00 ??? Types: Cigarettes ??? Quit date: 1969 Smokeless Tobacco ??? Never Used Patient does not meet criteria for Low Dose CT screening Patient meets criteria for AAA screening: yes Pt does feel mildly SOB occasionally. He would like a chest XR. Sleep Apnea Risk Factors: >50yo and Male Urinary Incontinence: No Severity: None Suggested follow up measures for bladder control:N/A Fall Risk: No Review of Systems Constitutional: Negative for fever. HENT: Negative for hearing loss. Eyes: Negative for blurred vision. Respiratory: Negative for shortness of breath. Cardiovascular: Negative for chest pain. Gastrointestinal: Negative for abdominal pain, nausea and vomiting. Genitourinary: Negative for dysuria. Skin: Had lesion removed on left ear from derm Psychiatric/Behavioral: Negative for depression. Patient Active Problem List Diagnosis ??? Chronic lymphocytic leukemia (CMS/HCC) ??? 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 Other chest pain ??? Gastroesophageal reflux disease, esophagitis presence not specified Past Medical History: Diagnosis Date ??? Anemia ??? Chronic lymphocytic leukemia (CMS/HCC) ??? GERD (gastroesophageal reflux disease) Past Surgical History: Procedure Laterality Date ??? CHOLECYSTECTOMY ??? EXCISION BASAL CELL CARCINOMA ??? KNEE ARTHROSCOPY Right knee ??? TRANSURETHRAL RESECTION OF BLADDER Family History Problem Relation Name Age of Onset ??? Cancer Mother skin ??? Heart Disease Maternal Grandmother Social History Socioeconomic History ??? Marital status: Spouse name: Not on file ??? Number of children: 2 ??? Years of education: Not on file ??? Highest education level: Not on file Occupational History ??? Not on file Social Needs ??? Financial resource strain: Not on file ??? Food insecurity Worry: Not on file Inability: Not on file ??? Transportation needs Medical: Not on file Non-medical: Not on file Tobacco Use ??? Smoking status: Former Smoker Packs/day: 1.50 Years: 3.00 Pack years: 4.50 Types: Cigarettes Quit date: 1970 Years since quittin.3 ??? Smokeless tobacco: Never Used Substance and Sexual Activity ??? Alcohol use: No Frequency: Never ??? Drug use: No ??? Sexual activity: Not on file Lifestyle ??? Physical activity Days per week: Not on file Minutes per session: Not on file ??? Stress: Not on file Relationships ??? Social connections Talks on phone: Not on file Gets together: Not on file Attends confucianism service: Not on file Active member of club or organization: Not on file Attends meetings of clubs or organizations: Not on file Relationship status: Not on file ??? Intimate partner violence Fear of current or ex partner: Not on file Emotionally abused: Not on file Physically abused: Not on file Forced sexual activity: Not on file Other Topics Concern ??? Not on file Social History Narrative ??? Not on file Immunization History Administered Date(s) Administered ??? Flublok (Quadrivalent) 12/05/2018 ? ? Fluzone High Dose - >Age 65 (Prefilled Syringe) 11/29/2013, 11/25/2014, 12/02/2015, 11/24/2016, 11/29/2017, 12/01/2017, 11/12/2019 ??? Influenza 12/10/2011, 12/11/2012, 11/24/2017 ??? Influenza Adult (Generic) 12/11/2012, 11/29/2013, 11/25/2014, 12/02/2015, 11/24/2016, 11/29/2017, 12/01/2017, 12/08/2018 ??? PFIZER COVID-19, MRNA, LNP-S, PF, 30 MCG/0.3 ML DOSE 04/13/2020, 05/04/2020 ??? Pneumococcal (Pneumovax 23) 01/17/2018 ??? Pneumococcal (Prevnar 13) 04/26/2019 ??? Zoster (Zostavax) [address]39 Unt/0.65Ml 12/09/2009 Current Outpatient Medications Medication Sig Dispense Refill ??? B Qwlxpqz-V-Omaao Acid (DIATX OR) Take 1 tablet by mouth daily. ??? Bioflavonoid Products (MICHAEL C OR) Take 1,000 mg by mouth daily. ??? Calcium Carbonate Antacid (CALCIUM CARBONATE OR) Take 600 mg by mouth daily. ??? Cholecalciferol (VITAMIN D3) 2000 units Tab Take 4,000 Units by mouth daily. ??? Cinnamon Bark Powder Take 1,200 mg by mouth daily. ??? ferrous sulfate, 65 mg elemental, 325 (65 FE) MG tablet Take 325 mg by mouth. ??? Riyatg-Mkjwz-Xxqc Ac-Ca Fructo (MOVE FREE JOINT HEALTH ADVANCE) Tab Take 1 tablet by mouth daily. ??? magnesium oxide 250 MG tablet Take 250 mg by mouth daily. ??? omega-3 fatty acid 500 MG capsule Take 1,000 mg by mouth daily. ??? pantoprazole EC 40 MG tablet Take 1 tablet (40 mg total) by mouth daily. 90 tablet 3 ??? vitamin C 500 MG tablet Take 1,000 mg by mouth daily. ??? Zinc Acetate, Oral, (GALZIN OR) Take 1 tablet by mouth daily. 15 mg once daily No current facility-administered medications for this visit. Current Outpatient Medications on File Prior to Visit Medication Sig ??? B Iobwnkx-P-Vitye Acid (DIATX OR) Take 1 tablet by mouth daily. ??? Bioflavonoid Products (MICHAEL C OR) Take 1,000 mg by mouth daily. ??? Calcium Carbonate Antacid (CALCIUM CARBONATE OR) Take 600 mg by mouth daily. ??? Cholecalciferol (VITAMIN D3) 2000 units Tab Take 4,000 Units by mouth daily. ??? Cinnamon Bark Powder Take 1,200 mg by mouth daily. ??? omega-3 fatty acid 500 MG capsule Take 1,000 mg by mouth daily. ??? pantoprazole EC 40 MG tablet Take 1 tablet (40 mg total) by mouth daily. ??? Zinc Acetate, Oral, (GALZIN OR) Take 1 tablet by mouth daily. 15 mg once daily No current facility-administered medications on file prior to visit. No Known Allergies Objective: Filed Vitals: 06/08/20 0907 BP: 136/60 Pulse: 60 Resp: 16 Temp: 98.3 ??F (36.8 ??C) TempSrc: Skin SpO2: 99% Weight: 75.7 kg (166 lb 12.8 oz) Height: 5' 7.5 (1.715 m) Physical Exam Constitutional: He is oriented to person, place, and time and well-developed, well-nourished, and in no distress. No distress. HENT: Head: Normocephalic and atraumatic. Right Ear: Tympanic membrane, external ear and ear canal normal. Left Ear: Tympanic membrane, external ear and ear canal normal. Mouth/Throat: No oropharyngeal exudate. Eyes: Conjunctivae are normal. No scleral icterus. Neck: Neck supple. Cardiovascular: Normal rate, regular rhythm and normal heart sounds. Exam reveals no gallop and no friction rub. No murmur heard. Pulmonary/Chest: Effort normal and breath sounds normal. No respiratory distress. He has no wheezes. He has no rales. Abdominal: Soft. Bowel sounds are normal. There is no abdominal tenderness. Musculoskeletal: General: No edema. Lymphadenopathy: He has no cervical adenopathy. Neurological: He is alert and oriented to person, place, and time. Gait normal. Skin: Skin is warm and dry. No rash noted. Psychiatric: Mood and affect normal. Nursing note and vitals reviewed. Assessment & Plan: Richard was seen today for annual. Diagnoses and all orders for this visit: Chronic lymphocytic leukemia (CMS/HCC) 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CMS/HCC) Encounter for preventative adult health care examination - PROSTATE SPECIFIC ANTIGEN,SCREENING; Future - LIPID PANEL; Future - TSH W/REFLEX; Future - PROSTATE SPECIFIC ANTIGEN,SCREENING - LIPID PANEL - TSH W/REFLEX - HEPATITIS C ANTIBODY; Future - HEPATITIS C ANTIBODY Need for hepatitis C screening test - HEPATITIS C ANTIBODY; Future - HEPATITIS C ANTIBODY Screening for AAA (abdominal aortic aneurysm) - USV AAA SCREENING; Future - USV AAA SCREENING History of tobacco use - USV AAA SCREENING; Future - USV AAA SCREENING SOB (shortness of breath) - XR CHEST PA+LAT; Future Puncture wound - [69209] Adacel (Tdap) Need for matfafydvd-sgyhqjo-ivxshnftq (Tdap) vaccine - [66780] Adacel (Tdap) Screening for endocrine, metabolic and immunity disorder - TSH W/REFLEX; Future - TSH W/REFLEX Screening for lipid disorders - LIPID PANEL; Future - LIPID PANEL Screening for prostate cancer - PROSTATE SPECIFIC ANTIGEN,SCREENING; Future - PROSTATE SPECIFIC ANTIGEN,SCREENING BMI 25.0-25.9,adult Discussion/Summary: We will order chest x-ray today for shortness of breath. Will order lab testing as per above. Will give Tdap given patient had recent puncture wound. Will order abdominal aortic aneurysm given patient's former smoker status and male sex. Continue follow-up with Dr. Little for his history of CLL andcold agglutinin disease. Patient follow-up in 6 to 12 months for reassessment depending upon blood test results. Patient verbalized understanding. I spent 30 minutes today reviewing the patient's medical record, obtaining history, performing an exam, ordering medications, tests, and/or procedures, documenting in the medical record, counseling and educating the patient/family/caregiver, reviewing and communicating test results and coordinationof care. Ryan Little DO documented in this encounter Plan of Treatment Scheduled Orders Name Type Priority Associated Diagnoses Orde r Schedule PROSTATE SPECIFIC ANTIGEN,SCREENING Lab Routine Screening for prostate cancer Encounter for preventative adult health care examination Expected: 06/08/2020, Expires: 06/08/2021 LIPID PANEL Lab Routine Screening for lipid disorders Encounter for preventative adult health care examination Expected: 06/08/2020, Expires: 06/08/2021 TSH W/REFLEX Lab Routine Screening for endocrine, metabolic and immunity disorder Encounter for preventative adult health care examination Expected: 06/08/2020, Expires: 06/08/2021 HEPATITIS C ANTIBODY Lab Routine Encounter for preventative adult health care examination Need for hepatitis C screening test Expected: 06/08/2020, Expires: 06/08/2021 HEPATITIS C ANTIBODY Lab Routine Screening for lipid disorders Screening for endocrine, metabolic and immunity disorder Screening for prostate cancer Encounter for preventative adult health care examination 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CMS/HCC HHS/HCC) Chronic lymphocytic leukemia (CMS/HCC HHS/HCC) Need for hepatitis C screening test Screening for AAA (abdominal aortic aneurysm) History of tobacco use SOB (shortness of breath) Puncture wound Need for rigchupayd-qanjaqy-zdgyslr is (Tdap) vaccine BMI 25.0-25.9,adult Expected: 07/28/2020, Expires: 07/28/2021 TSH W/REFLEX Lab Routine Screening for lipid disorders Screening for endocrine, metabolic and immunity disorder Screening for prostate cancer Encounter for preventative adult health care examination 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CMS/HCC HHS/HCC) Chronic lymphocytic leukemia (CMS/HCC HHS/HCC) Need for hepatitis C screening test Screening for AAA (abdominal aortic aneurysm) History of tobacco use SOB (shortness of breath) Puncture wound Need for byfnrtmfgl-mvjlrqo-mfpmznd is (Tdap) vaccine BMI 25.0-25.9,adult Expected: 07/28/2020, Expires: 07/28/2021 PROSTATE SPECIFIC ANTIGEN,SCREENING Lab Routine Screening for lipid disorders Screening for endocrine, metabolic and immunity disorder Screening for prostate cancer Encounter for preventative adult health care examination 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CMS/HCC HHS/HCC) Chronic lymphocytic leukemia (CMS/HCC HHS/HCC) Need for hepatitis C screening test Screening for AAA (abdominal aortic aneurysm) History of tobacco use SOB (shortness of breath) Puncture wound Need for mbzyxuiuma-rqquocy-aaxjrkn is (Tdap) vaccine BMI 25.0-25.9,adult Expected: 07/28/2020, Expires: 07/28/2021 LIPID PANEL Lab Routine Screening for lipid disorders Screening for endocrine, metabolic and immunity disorder Screening for prostate cancer Encounter for preventative adult health care examination 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[facility]/HCC) Chronic lymphocytic leukemia ([facility]) Need for hepatitis C screening test Screening for AAA (abdominal aortic aneurysm) History of tobacco use SOB (shortness of breath) Puncture wound Need for chehizzoka-rwkdlxa-ixbpmno is (Tdap) vaccine BMI 25.0-25.9,adult Chest pain Expected: 07/28/2020, Expires: 07/28/2021 documented as of this encounter Procedures Procedure Name Priority Date/Time Associated Diagnosis Comments USV AAA SCREENING Routine 06/17/2020 12:00 AM CDT Screening for AAA (abdominal aortic aneurysm) History of tobacco use documented in this encounter Results * USV AAA SCREENING (06/17/2020 12:00 AM CDT) Anatomical Region Laterality Modality NA Vascular Ultraso und 06/17/2020 us Ryan Little DO US VASC Final Re sult * XR CHEST PA+LAT (06/08/2020 9:59 AM CDT) Anatomical Region Laterality Modality Chest Radiographic Leticia ging 06/08/2020 10:0 7 AM CDT Impressions 06/08/2020 10:07 AM CDT IMPRESSION: Negative chest Referred By: RYAN LITTLE Interpreted By: Mohsen García MD, 06/08/2020 10:07 AM Narrative 06/08/2020 10:07 AM CDT 2 VIEWS OF THE CHEST Clinical history: Shortness of breath Comparison: None 2 views of the chest demonstrate The cardiac silhouette, mediastinal contours, and pulmonary vessels appear normal. ??The Lungs are clear. No consolidations or effusions are seen. Procedure Note Mohsen García MD - 06/08/2020 2 VIEWS OF THE CHEST Clinical history: Shortness of breath Comparison: None 2 views of the chest demonstrate The cardiac silhouette, mediastinal contours, and pulmonary vessels appear normal. The Lungs are clear. No consolidations or effusions are seen. IMPRESSION: Negative chest Referred By: RYAN LITTLE Interpreted By: Mohsen García MD, 06/08/2020 10:07 AM us Ryan Little DO GENERAL IMAGING Final Re sult documented in this encounter Visit Diagnoses Diagnosis Chest pain- Primary Chest pain, unspecified Chronic lymphocytic leukemia ([facility]/HCC HHS/HCC) Chronic lymphoid leukemia, without mention of having achieved remission 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CMS/[facility] HHS/HCC) Autoimmune hemolytic anemias Encounter for preventative adult health care examination Need for hepatitis C screening test Special screening examination for other specified viral diseases Screening for AAA (abdominal aortic aneurysm) Screening for other and unspecified cardiovascular conditions History of tobacco use Personal history of tobacco use, presenting hazards to health SOB (shortness of breath) Shortness of breath Puncture wound Open wound(s) (multiple) of unspecified site(s), without mention of complication Need for jckdgcocmf-cpabxau-iahoxjmqh (Tdap) vaccine Need for prophylactic vaccination with combined sbycipkrfk-djanrdd-breutwhzh (DTP) vaccine Screening for endocrine, metabolic and immunity disorder Screening for lipid disorders Screening for prostate cancer Special screening for malignant neoplasm of prostate BMI 25.0-25.9,adult Body Mass Index 25.0-25.9, adult documented in this encounter Additional Health Concerns Assessment Noted Time PHQ-9 Depression Total Score: 1 06/09/19 21 9:12 AM CDT documented as of this encounter Care Teams Pick Up Driver Relationship Specialty Start Date End Date Ryan Little DO [address] [place] [address] PCP - General FAMILY PRACTICE 04/20/18 documented as of this encounter
--- OUTSIDE RECORDS SUMMARY | 2024-02-22 11:00 | XMS_ITS | Encounter Summary ---
Author Organization [facility] Address [address] [place] [address]. [place], [place] [address] [place] [address] Care Team Providers Care Triple Drum Operator Name Role Phone Ryan Maloney DO Primary Care Provider + Reason for Referral * Consultation (Routine) - Closed Specialty Diagnoses / Procedures Referred By Ana martin Referred To Contact GASTROENTEROLOGY Diagnoses Screening for malignant neoplasm of colon Ryan Maloney DO [address] [place] [address] Phone: tel: fax: Berto Jay DO Phone: tel: fax: Referral ID Status Reason Start Date Expiration Date Visits Re quested Visits Authorized [id number] Closed 04/26/2019 05/26/2020 100 100 LE PRESSER Reason for Visit * Reason Comments Medicare Wellness yearly Encounter Details Date Type Department Care Team (Late st Contact Info) Description 04/26/2019 7:00 AM INSOLE PRESSER Office Visit [facility] Medical Group Family & Internal Medicine [facility] [address] [place] [address] Ryan Maloney DO [address] [place] [address] Medicare Wellness (yearly ) Social History Tobacco Use Types Packs/Day [...] on file Legal Sex Male 11:15 AM INSOLE PRESSER Gender Identity Not on file Sexual Orientation Not on file documented as of this encounter Last Filed Vital Signs Vital Sign Reading Time Taken Comments Blood Pressure 138/68 04/26/2019 8:13 AM INSOLE PRESSER Pulse 65 04/26/2019 7:17 AM INSOLE PRESSER Temperature - - Respiratory Rate 16 04/26/2019 7:17 AM INSOLE PRESSER Oxygen Saturation 99% 04/26/2019 7:17 AM INSOLE PRESSER Inhaled Oxygen Concentration - - Weight 76.3 kg (168 lb 2 oz) 04/26/2019 7:17 AM INSOLE PRESSER Height 170.2 cm (5' 7 ) 04/26/2019 7:17 AM INSOLE PRESSER Body Mass Index 26.33 04/26/2019 7:17 AM INSOLE PRESSER documented in this encounter Progress Notes * Ryan Maloney, DO - 04/26/2019 7:00 AM CST Images from the original note were not included. GENERAL OFFICE VISIT Encounter Date: 04/26/2019 Chief Complaint: 73-year-old male presents for Medicare Wellness (yearly ) . The patient is being seen for a health maintenance evaluation. The last health maintenance exam [id number]. General Health: fair Dental Health: Sees dentist regularly Vision Health: Wears glasses Has patient seen an public relations professional in the last year: Will see next Monday Hearing Health: Tinnitus Immunizations Needed: Prevnar 13, need Tdap next year Weight: Overweight Body mass index is 26.33 kg/m??. Physical Activity: Excersises regularly Prostate Cancer Screening: last PSA: 1.7 Colorectal Cancer Screening: Due Metabolic Screening: Patient [...] Patient meets criteria for AAA screening: yes Sleep Apnea Risk Factors: >50yo and Male [...] Diagnosis ??? Chronic lymphocytic leukemia (CMS/HCC) ??? 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CMS/HCC) ??? Other chest pain ??? Gastroesophageal [...] resource strain: Not on file ??? Food insecurity: Worry: Not on file Inability: Not on file ??? Transportation needs: Medical: Not on file Non-medical: Not on file Tobacco Use ??? Smoking status: Former Smoker Packs/day: 1.50 Years: 3.00 Pack years: 4.50 Types: Cigarettes Last attempt to quit: 1969 Years since quittin.2 ??? Smokeless tobacco: Never Used Substance and Sexual Activity ??? Alcohol use: No Frequency: Never ??? Drug use: No ??? Sexual activity: Not on file Lifestyle ??? Physical activity: Days per week: Not on file Minutes per session: Not on file ??? Stress: Not on file Relationships ??? Social connections: Talks on phone: Not on file Gets together: Not on file Attends episcopal service: Not on file Active member of club or organization: Not on file Attends meetings of clubs or organizations: Not on file Relationship status: Not on file ??? Intimate partner violence: Fear of current or ex partner: Not on file Emotionally abused: Not on file Physically abused: Not on file Forced sexual activity: Not on file Other Topics Concern ??? Not on file Social History Narrative ??? Not on file Immunization History Administered Date(s) Administered ??? Flublok (Quadrivalent) 12/05/2018 ??? Influenza 12/10/2011, 12/11/2012, 11/24/2017 ??? Influenza Adult (Generic) 11/29/2013, 11/25/2014, 12/02/2015, 11/24/2016, 11/29/2017, 12/01/2017, 12/08/2018 ??? Pneumococcal (Pneumovax 23) 01/17/2018 ??? Zoster (Zostavax) 56977 Unt/0.65Ml 12/09/2009 Current Outpatient Medications Medication Sig Dispense Refill ??? B Nhgqebq-Q-Rzboq Acid (DIATX OR) Take 1 tablet by mouth daily. ??? Bioflavonoid Products (MICHAEL C OR) Take 1,000 mg by mouth daily. ??? Calcium Carbonate Antacid (CALCIUM CARBONATE OR) Take 600 mg by mouth daily. ??? Cholecalciferol (VITAMIN D3) 2000 units Tab Take 4,000 Units by mouth daily. ??? Cinnamon Bark Powder Take 1,200 mg by mouth daily. ??? Glucosamine HCl 1500 MG Tab Take 1 tablet by mouth daily. ??? omega-3 fatty acid 500 MG capsule Take 1,000 mg by mouth daily. ??? pantoprazole EC 40 MG tablet Take 1 tablet (40 mg total) by mouth daily. 90 tablet 3 ??? Zinc Acetate, Oral, (GALZIN OR) Take 1 tablet by mouth daily. 15 mg once daily No current facility-administered medications for this visit. Current Outpatient Medications on File Prior to Visit Medication Sig ??? B [place]-S-Wsqvq Acid (DIATX OR) Take 1 tablet by mouth daily. ??? Bioflavonoid Products (MICHAEL C OR) Take 1,000 mg by mouth daily. ??? Calcium Carbonate Antacid (CALCIUM CARBONATE OR) Take 600 mg by mouth daily. ??? Cholecalciferol (VITAMIN D3) 2000 units Tab Take 4,000 Units by mouth daily. ??? Cinnamon Bark Powder Take 1,200 mg by mouth daily. ??? Glucosamine HCl 1500 MG Tab Take 1 tablet by mouth daily. ??? omega-3 fatty acid 500 MG capsule Take 1,000 mg by mouth daily. ??? Zinc Acetate, Oral, (GALZIN OR) Take 1 tablet by mouth daily. 15 mg once daily No current facility-administered medications on file prior to visit. No Known Allergies Objective: Filed Vitals: 04/26/19 0717 BP: (!) 152/74 Pulse: 65 Resp: 16 SpO2: 99% Weight: 76.3 kg (168 lb 2 oz) Height: 5' 7 (1.702 m) Physical Exam Constitutional: He is oriented [...] Bowel sounds are normal. There is no tenderness. Musculoskeletal: He exhibits no edema. Lymphadenopathy: He has no cervical adenopathy. Neurological: He is alert and oriented to person, place, and time. Gait normal. Skin: Skin is warm and dry. No rash noted. Psychiatric: Mood and affect normal. Nursing note and vitals reviewed. Assessment & Plan: Richard was seen today for medicare wellness. Diagnoses and all orders for this visit: Encounter for preventative adult health care examination Chronic lymphocytic leukemia (CMS/HCC) 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CMS/HCC) Gastroesophageal reflux disease, esophagitis presence not specified - pantoprazole EC 40 MG tablet; Take 1 tablet (40 mg total) by mouth daily. Need for hepatitis C screening test - HEPATITIS C ANTIBODY; Future - HEPATITIS C ANTIBODY Screening for prostate cancer - PROSTATE SPECIFIC ANTIGEN,SCREENING; Future - PROSTATE SPECIFIC ANTIGEN,SCREENING Screening for malignant neoplasm of colon - AMB REF TO GASTROENTEROLOGY Need for prophylactic vaccination against Streptococcus pneumoniae (pneumococcus) - PNEUMOCOCCAL CONJUGATE VACCINE 13 VALENT IM GERD (gastroesophageal reflux disease) BMI 26.0-26.9,adult Discussion/Summary: No acute symptoms today. Will refill pantoprazole today. Will order lab work as per above and keep an eye out for regular labs that are ordered by his oncologist. Will give Prevnar 13 today. Expectedand preventive management discussed, including diet and exercise. Will have patient follow-up in 1 year or sooner if needed. Patient verbalized understanding. Ryan Maloney DO LE PRESSER * GERARDO Morales - 04/26/2019 7:00 AM CST psa was normal documented in this encounter Plan of Treatment Scheduled Referrals Name Type Priority Associated Diagnoses Orde r Schedule Ambulatory referral to Gastroenterology (OTHER) Referral Routine Screening for malignant neoplasm of colon Ordered: 04/26/2019 documented as of this encounter Procedures Procedure Name Priority Date/Time Associated Diagnosis Comments PROSTATE SPECIFIC ANTIGEN,SCREENING Routine 08/02/2019 7:27 AM CDT Screening for prostate cancer documented in this encounter Results * PROSTATE SPECIFIC ANTIGEN,SCREENING (08/02/2019 7:27 AM CDT) PSA 1.4 0.0 - 4.0 ng/mL [facility] 1 Comment: Kristan ECLIA methodology. According to the [place] [employer], Serum PSA should decrease and [...] the presence or absence of malignant disease. 08/02/2019 7:27 AM CDT 08/02/2019 Narrative [facility] - 08/04/2019 3:05 AM CDT Performed at: ??01 - [facility] [address] ??[id number] Chief Quality Officer: Hay Goodwin PhD, Phone: ??[phone] Ryan Maloney DO LABORATORY Final Re sult [facility] [address] [place] [address] [facility] 1 documented in this encounter Visit Diagnoses Diagnosis Encounter for preventative adult health care examination- Primary Chronic lymphocytic leukemia ([facility]/HCC) Chronic lymphoid leukemia, without mention of having achieved remission 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[facility]/HCC) Autoimmune hemolytic anemias Gastroesophageal reflux disease, esophagitis presence not specified Need for hepatitis C screening test Special screening examination for other specified viral diseases Screening for prostate cancer Special screening for malignant neoplasm of prostate Screening for malignant neoplasm of colon Need for prophylactic vaccination against Streptococcus pneumoniae (pneumococcus) Need for prophylactic vaccination against streptococcus pneumoniae (pneumococcus) BMI 26.0-26.9,adult Body Mass Index 26.0-26.9, adult documented in this encounter Additional Health Concerns Assessment Noted Time PHQ-9 Depression Total Score: 1 04/26/19 20 8:13 AM INSOLE PRESSER documented as of this encounter Care Teams Triple Drum Operator Relationship Specialty Start Date End Date Ryan Maloney DO [address] [place] [id number] PCP - General FAMILY PRACTICE 04/20/18 documented as of this encounter
--- OUTSIDE RECORDS SUMMARY | 2024-02-22 11:00 | XMS_ITS | Encounter Summary ---
Author Organization [facility] Address [address] [place] [address]. 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
--- OUTSIDE RECORDS SUMMARY | 2024-02-22 11:00 | XMS_ITS | Encounter Summary ---
Author Organization [facility] Address [address] [place] [address]. 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
--- OUTSIDE RECORDS SUMMARY | 2024-02-22 11:00 | XMS_ITS | Encounter Summary ---
Author Organization [facility] Address [address] [place] [address]. 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 No / Unsure 06/08/2020 8:48 AM CDT documented as of this encounter Progress Notes * Hamida Sharma MA - 06/10/2020 1:33 PM CDT Patient notified and v/u * Hamida Sharma MA - 06/08/2020 3:22 PM CDT No answer no vm 06/08/20 * Hamida Sharma MA - 06/08/2020 3:22 PM CDT ----- Message from Ryan Maloney DO sent at 06/08/2020 12:34 PM CDT ----- CXR is WNL. Will monitor for now. documented in this encounter Plan of Treatment Not on file documented as of this encounter Visit Diagnoses Not on filedocumented in this encounter Additional Health Concerns Assessment Noted Time PHQ-9 Depression Total Score: 1 06/09/19 21 9:12 AM CDT documented as of this encounter Care Teams Referral Management Liaison Relationship Specialty Start Date End Date Ryan Maloney DO [address] [place] [address] PCP - General FAMILY PRACTICE 04/20/18 documented as of this encounter
--- OUTSIDE RECORDS SUMMARY | 2024-02-22 11:00 | XMS_ITS | Encounter Summary ---
Author Organization [facility] Address [address] [place] [address]. 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 No / Unsure 06/05/2020 3:58 PM CDT documented as of this encounter Plan of Treatment Not on file documented as of this encounter Visit Diagnoses Not on filedocumented in this encounter Additional Health Concerns Assessment Noted Time PHQ-9 Depression Total Score: 1 04/26/19 20 8:13 AM DIRECTOR OF RETAIL OPERATIONS documented as of this encounter Care Teams Information Systems Operator Relationship Specialty Start Date End Date Ryan Maloney DO [address] [place], [place] [id number] PCP - General FAMILY PRACTICE 04/20/18 documented as of this encounter
--- OUTSIDE RECORDS SUMMARY | 2024-02-22 11:01 | XMS_ITS | Encounter Summary ---
Author Organization [facility] Address [address] [place] [address]. [place], [place] [address] [place] [address] Care Team Providers Care Sign Language Teacher Name Role Phone Ryan Maloney DO Primary Care Provider + Encounter Details Date Type Department Care Team (Latest Contact Info) Description 09/10/2018 Scan HEALTH INFO SRVCS Scanned, Documents Social History Tobacco Use Types Packs/Day Years Used Date Smoking Tobacco: Former Cigarettes 1.5 3 1 967 - 1970 Smokeless Tobacco: Never Alcohol Use Standard Drinks/Week Comments No 0 (1 standard drink = 0.6 oz pur e alcohol) AUDIT-C Answer Date Recorded Frequency of Alcohol Consumption Never 04/25/2018 Average Number of Drinks Not on file 019 Frequency of Binge Drinking Not on file 07/2018 PHQ-2 Answer Date Recorded PHQ-2 Score 0 05/21/2018 Sex and Gender Information Value Date Recorded Sex Assigned at Not on file 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
--- OUTSIDE RECORDS SUMMARY | 2024-02-22 11:01 | XMS_ITS | Encounter Summary ---
Author Organization [facility] Address [address] [place] [address]. 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 documented in this encounter Plan of Treatment Not on file documented as of this encounter Visit Diagnoses Not on filedocumented in this encounter Additional Health Concerns Assessment Noted Time PHQ-9 Depression Total Score: 0 04/26/19 19 9:30 AM CHRISTMAS TREE FARM WORKER documented as of this encounter Care Teams Tripe Scraper Relationship Specialty Start Date End Date Ryan Maloney DO [address] [place], [place] [phone] PCP - General FAMILY PRACTICE 04/20/18 documented as of this encounter
--- OUTSIDE RECORDS SUMMARY | 2024-02-22 11:01 | XMS_ITS | Encounter Summary ---
Author Organization [facility] Address [address] [place] [address]. [place], [place] [address] [place] [address] Care Team Providers Care Sketch Liner Name Role Phone Ryan Maloney Baylee ARELLANO Primary Care Provider + Reason for Visit * Reason Comments Lab (SCAN) RESULTS FOR HEMATOLO GY, CHEMISTRY, AND ISTAT Encounter Details Date Type Department Care Team (Late st Contact Info) Description 03/19/2018 Scan HEALTH INFO SRVCS Scanned, Documents Lab (SCAN) (RESULTS FOR HEMATOLOGY, CHEMISTRY, AND ISTAT) Social History Tobacco Use Types Packs/Day Years Used Date Smoking Tobacco: Never Assessed AUDIT-C Answer Date Recorded Frequency of Alcohol Consumption Never 04/25/2018 Average Number of Drinks Not on file 019 Frequency of Binge Drinking Not on file 07/2018 PHQ-2 Answer Date Recorded PHQ-2 Score 0 05/21/2018 Sex and Gender Information Value Date Recorded Sex Assigned at Not on file Legal Sex Male 11:15 AM INFORMATICS PHYSICIAN Gender Identity Not on file Sexual Orientation Not on file documented as of this encounter Plan of Treatment Not on file documented as of this encounter Procedures Procedure Name Priority Date/Time Associated Diagnosis Comments OUTSIDE LAB (SCAN ORDER) Routine 03/19/2018 9:18 AM INFORMATICS PHYSICIAN documented in this encounter Results * OUTSIDE LAB (03/19/2018 9:18 AM INFORMATICS PHYSICIAN) 03/19/2018 9:18 AM INFORMATICS PHYSICIAN us Documents Scanned SCANNING Final Result documented in this encounter Visit Diagnoses Not on filedocumented in this encounter Care Teams Sketch Liner Relationship Specialty Start Date End Date Ryan Maloney DO [address] [place] [address] PCP - General FAMILY PRACTICE 04/20/18 documented as of this encounter
--- OUTSIDE RECORDS SUMMARY | 2024-02-22 11:01 | XMS_ITS | Encounter Summary ---
Author Organization [facility] Address [address] [place] [address]. [place], [place] [address] [place] [address] Care Team Providers Care Kiln Repairer Name Role Phone Ryan Maloney DO Primary Care Provider + Reason for Visit * Reason Comments Establish Care Encounter Details Date Type Department Care Team (Late st Contact Info) Description 04/25/2018 8:00 AM SERVICE STATION ATTENDANT Office Visit [facility] Family & Internal Medicine [address] [address] Ryan Maloney DO [address] [place] [address] [id number] Establish Care Social History Tobacco Use Types Packs/Day Years [...] of Binge Drinking Not on file 07/2018 Sex and Gender Information Value Date Recorded Sex Assigned at Not on file Legal Sex Male 11:15 AM SERVICE STATION ATTENDANT Gender Identity Not on file Sexual Orientation Not on file documented as of this encounter Last Filed Vital Signs Vital Sign Reading Time Taken Comments Blood Pressure 124/68 04/25/2018 8:40 AM SERVICE STATION ATTENDANT Pulse 65 04/25/2018 8:11 AM SERVICE STATION ATTENDANT Temperature 36.2 ??C (97.1 ??F) 04/25/2018 8:11 AM CS T Respiratory Rate 16 04/25/2018 8:11 AM SERVICE STATION ATTENDANT Oxygen Saturation 99% 04/25/2018 8:11 AM SERVICE STATION ATTENDANT Inhaled Oxygen Concentration - - Weight 78.7 kg (173 lb 8 oz) 04/25/2018 8:11 AM SERVICE STATION ATTENDANT Height 170.2 cm (5' 7 ) 04/25/2018 8:11 AM SERVICE STATION ATTENDANT Body Mass Index 27.17 04/25/2018 8:11 AM SERVICE STATION ATTENDANT documented in this encounter Progress Notes * Ryan Beach Haider, DO - 04/25/2018 8:00 AM CST The patient is being seen for a health maintenance evaluation. This is the patient's first visit. General Health: fair Dental Health: Sees dentist regularly Vision Health: Wears glasses Has patient seen an eyeglass frames polisher in the last year: Yes, [facility] Hearing Health: Tinnitus Immunizations Needed: Will need prevnar 13 next year Weight: Overweight Body mass index is 27.17 kg/m??. Physical Activity: Excersises regularly, 3 times weekly cardio Prostate Cancer Screening: Needs PSA in July 2018 Colorectal Cancer Screening: Colonoscopy every 5 years, needs done next year Metabolic Screening: Patient has been screened previously within the past year. HCV Screening: Patient does meet criteria PHQ-9 Screening Score: 0 Smoking Status: History Smoking Status ??? Former Smoker ??? Packs/day: 1.50 ??? Years: 3.00 ??? Types: Cigarettes ??? Quit date: 1969 Smokeless Tobacco ??? Never Used Patient does not meet criteria for Low Dose CT screening Patient meets criteria for AAA screening: yes Sleep Apnea Risk Factors: Snoring, >50yo and Male Urinary Incontinence: No Severity: None Suggested follow up measures for bladder control: Sees urology Fall Risk: No Pt was recently diagnosed with CLL; he is seeing hematology. He is being monitored at this time with no therapeutic modality being utilized. Next appointment is within the next 3 months. He is also being worked up for cold agglutinin disease by hematology. Review of Systems Constitutional: Negative for fever. HENT: Negative for hearing loss. Eyes: Negative for discharge. Respiratory: Negative for shortness of breath. Cardiovascular: Negative for chest pain. Gastrointestinal: Negative for abdominal pain, nausea and vomiting. Genitourinary: Negative for dysuria. Skin: Negative for rash. Neurological: Negative for loss of consciousness. Endo/Heme/Allergies: Does not bruise/bleed easily. Psychiatric/Behavioral: Negative for depression. Patient Active Problem List Diagnosis ??? Chronic lymphocytic leukemia (CMS/HCC) ??? 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CMS/HCC) ??? Other chest pain Past Medical History: Diagnosis Date ??? Anemia [...] 4.50 Types: Cigarettes Last attempt to quit: 1970 Years since quittin.2 ??? Smokeless tobacco: Never [...] file Gets together: Not on file Attends catholic service: Not on file Active member of [...] file Immunization History Administered Date(s) Administered ??? Influenza 11/24/2017 ??? Pneumococcal (Pneumovax 23) 01/17/2018 Current Outpatient Medications Medication Sig Dispense Refill ??? B Itpviio-S-Dzbpd Acid (DIATX OR) Take 1 tablet by mouth daily. ??? Bioflavonoid Products (MICHAEL C OR) Take 1,000 mg by mouth daily. ??? Calcium Carbonate Antacid (CALCIUM CARBONATE OR) Take 300 mg by mouth daily. ??? Cholecalciferol (VITAMIN D3) 2000 units Tab Take 4,000 Units by mouth daily. ??? Cinnamon Bark Powder Take 1,200 mg by mouth daily. ??? Glucosamine HCl 1500 MG Tab Take 1 tablet by mouth daily. ??? influenza vaccine split high-dose (FLUZONE HIGH-DOSE) 0.5 ML injection 1 tablet daily. ??? omega-3 fatty acid 500 MG capsule Take 1,000 mg by mouth daily. ??? pantoprazole EC 40 MG tablet Take 1 tablet by mouth daily. ??? Zinc Acetate (GALZIN) 25 MG Cap Take 1 tablet by mouth daily. No current facility-administered medications for this visit. Current Outpatient Medications on File Prior to Visit Medication Sig ??? B Fswqfrv-R-Hvwyk Acid (DIATX OR) Take 1 tablet by mouth daily. ??? Bioflavonoid Products (MICHAEL C OR) Take 1,000 mg by mouth daily. ??? Calcium Carbonate Antacid (CALCIUM CARBONATE OR) Take 300 mg by mouth daily. ??? Cholecalciferol (VITAMIN D3) 2000 units Tab Take 4,000 Units by mouth daily. ??? Cinnamon Bark Powder Take 1,200 mg by mouth daily. ??? Glucosamine HCl 1500 MG Tab Take 1 tablet by mouth daily. ??? influenza vaccine split high-dose (FLUZONE HIGH-DOSE) 0.5 ML injection 1 tablet daily. ??? omega-3 fatty acid 500 MG capsule Take 1,000 mg by mouth daily. ??? pantoprazole EC 40 MG tablet Take 1 tablet by mouth daily. ??? Zinc Acetate (GALZIN) 25 MG Cap Take 1 tablet by mouth daily. No current facility-administered medications on file prior to visit. No Known Allergies Objective: Filed Vitals: 04/25/18 0811 04/25/18 0840 BP: 150/72 124/68 Pulse: 65 Resp: 16 Temp: 97.1 ??F (36.2 ??C) TempSrc: Oral SpO2: 99% Weight: 78.7 kg (173 lb 8 oz) Height: 5' 7 (1.702 m) Physical Exam Constitutional: He is oriented to person, place, and time and well-developed, well-nourished, and in no distress. No distress. HENT: Head: Normocephalic and atraumatic. Right Ear: Tympanic membrane, external ear and ear canal normal. Left Ear: Tympanic membrane, external ear and ear canal normal. Mouth/Throat: No oropharyngeal exudate. Eyes: Conjunctivae are normal. Neck: Neck supple. Cardiovascular: Normal rate, regular [...] and oriented to person, place, and time. Skin: Skin is warm and dry. No rash noted. Psychiatric: Mood and judgment normal. Nursing note and vitals reviewed. Assessment & Plan: Richard was seen today for establish care. Diagnoses and all orders for this visit: Routine general medical examination at a health care facility Screening for malignant neoplasm of prostate - PROSTATE SPECIFIC ANTIGEN,TOTAL; Future Screening for AAA (aortic abdominal aneurysm) - [place] AAA SCREENING; Future Chronic lymphocytic leukemia (CMS/HCC) 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CMS/HCC) Discussion/Summary: Expectant management discussed. Written management discussed. Will await old lab work from previousP. Continue follow-up with urology and hematology. Order PSA for later this year and order abdominal aortic aneurysm screening ultrasound as he is never had this done has a history of smoking. Follow-up in 1 year or sooner if needed. Ryan Maloney DO ICE STATION ATTENDANT documented in this encounter Plan of Treatment Not on file documented as of this encounter Visit Diagnoses Diagnosis [facility]- Primary Screening for malignant neoplasm of prostate Screening for AAA (aortic abdominal aneurysm) Screening for other and unspecified cardiovascular conditions Chronic lymphocytic leukemia ([facility]) Chronic lymphoid leukemia, without mention of having achieved remission 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
--- OUTSIDE RECORDS SUMMARY | 2024-02-22 11:01 | XMS_ITS | Encounter Summary ---
Author Organization [facility] Address [address] [place] [address]. [place], [place] [address] [place] [address] Care Team Providers Care Bicycle Designer Name Role Phone Ryan Maloney DO Primary Care Provider + Encounter Details Date Type Department Care Team (Latest Contact Info) Description 04/25/2018 Scan HEALTH INFO SRVCS Scanned, Documents Social [...] on file Legal Sex Male 11:15 AM TECHNOLOGY RISK INTERN Gender Identity Not on file Sexual Orientation Not on file documented as of this encounter Plan of Treatment Not on file documented as of this encounter Visit Diagnoses Not on filedocumented in this encounter Additional Health Concerns Assessment Noted Time PHQ-9 Depression Total Score: 0 04/26/19 19 9:30 AM TECHNOLOGY RISK INTERN documented as of this encounter Care Teams Bicycle Designer Relationship Specialty Start Date End Date Ryan Maloney DO [address] [place] [address] PCP - General FAMILY PRACTICE 04/20/18 documented as of this encounter
--- OUTSIDE RECORDS SUMMARY | 2024-02-22 11:01 | XMS_ITS | Encounter Summary ---
Author Organization [facility] Address [address] [place] [address]. [place], [place] [address] [place] [address] Care Team Providers Care Psychologist Military Personnel Name Role Phone Ryan Maloney DO Primary Care Provider + Reason for Visit * Reason Onset Date Comments Orders 05/11/2018 Encounter Details Date Type Department Care Team (Late st Contact Info) Description 05/11/2018 Telephone [facility] Family & Internal Medicine [facility] [address] [place] [address] Ryan Maloney DO [address] [place] [address] Orders Social History Tobacco Use Types Packs/Day Years [...] on file Legal Sex Male 11:15 AM APPLICATIONS SUPPORT ENGINEER Gender Identity Not on file Sexual Orientation Not on file documented as of this encounter Progress Notes * Maddy Ontiveros RN - 05/11/2018 7:37 AM CDT ----- Message from Lois Ray sent at 05/10/2018 5:30 PM CDT ----- Regarding: order PLEASE CHANGE ORDER TO US AORTA THANKS documented in this encounter Plan of Treatment Not on file documented as of this encounter Visit Diagnoses Diagnosis AAA (abdominal aortic aneurysm) (CMS/[facility])- Primary Abdominal aneurysm without mention of rupture Screening for AAA (abdominal aortic aneurysm) Screening for other and unspecified cardiovascular conditions documented in this encounter Additional Health Concerns Assessment Noted Time PHQ-9 Depression Total Score: 0 04/26/19 19 9:30 AM APPLICATIONS SUPPORT ENGINEER documented as of this encounter Care Teams Psychologist Military Personnel Relationship Specialty Start Date End Date Ryan Maloney DO [address] [place] [address] PCP - General FAMILY PRACTICE 04/20/18 documented as of this encounter
--- OUTSIDE RECORDS SUMMARY | 2024-02-22 11:01 | XMS_ITS | Encounter Summary ---
Author Organization [facility] Address [address] [place] [address]. [place], [place] [address] [place] [address] Care Team Providers Care Yard Supervisor Name Role Phone Ryan Maloney DO Primary Care Provider + Reason for Visit * Reason Onset Date Comments FYI 06/21/2018 Encounter Details Date Type Department Care Team (Late st Contact Info) Description 06/21/2018 Telephone [facility] Family & Internal Medicine [facility] [address] [place] [address] Ryan Maloney DO [facility] [place] [address] FYI Social History Tobacco Use Types Packs/Day Years [...] on file Legal Sex Male 11:15 AM TRAVEL JOURNALIST Gender Identity Not on file Sexual Orientation Not on file documented as of this encounter Progress Notes * Maddy Ontiveros RN - 06/22/2018 9:25 AM CDT Records received and on Dr. Inés moya 06/22/18 * Maddy Ontiveros RN - 06/21/2018 4:06 PM CDT Record request faxed. 06/21/18 * Ryan Maloney DO - 06/21/2018 1:29 PM CDT Can we request the records from [facility] about an aortic U/S? I don't see my initial response, which may have been put on the document and hasn't been scanned yet. * Zabrina Lovelace - 06/21/2018 1:15 PM CDT [facility] scheduling calling, have been trying to schedule pts Aorta US, pt has declined with them. He told them he has order in and and will do so at [facility] documented in this encounter Plan of Treatment Not on file documented as of this encounter Visit Diagnoses Not on filedocumented in this encounter Additional Health Concerns Assessment Noted Time PHQ-9 Depression Total Score: 0 04/26/19 19 9:30 AM TRAVEL JOURNALIST documented as of this encounter Care Teams Yard Supervisor Relationship Specialty Start Date End Date Ryan Maloney DO [address] [place] [address] PCP - General FAMILY PRACTICE 04/20/18 documented as of this encounter
--- OUTSIDE RECORDS SUMMARY | 2024-02-22 11:01 | XMS_ITS | Encounter Summary ---
Author Organization [facility] Address [address] [place] [address]. [place], [place] [address] [place] [address] Care Team Providers Care Paraffiner Name Role Phone Ryan Maloney DO Primary Care Provider + Reason for Visit * Reason Onset Date Comments Results 05/20/2018 Encounter Details Date Type Department Care Team (Late st Contact Info) Description 05/20/2018 Telephone [facility] Family & Internal Medicine [facility] [address] [place] [address] Ryan Maloney DO [facility] [place] [address] Results Social History Tobacco Use [...] on file Legal Sex Male 11:15 AM WINDOWS SYSTEM ADMIN Gender Identity Not on file Sexual Orientation Not on file documented as of this encounter Progress Notes * Quyen Souza CMA - 05/21/2018 10:26 AM CDT Pt informed and expressed understanding * Ryan Maloney DO - 05/20/2018 6:51 PM CDT Please let pt know that his lab work looked OK; can recheck next year for screening purposes. documented in this encounter Plan of Treatment Not on file documented as of this encounter Visit Diagnoses Not on filedocumented in this encounter Additional Health Concerns Assessment Noted Time PHQ-9 Depression Total Score: 0 04/26/19 19 9:30 AM WINDOWS SYSTEM ADMIN documented as of this encounter Care Teams Paraffiner Relationship Specialty Start Date End Date Ryan Maloney DO [address] [place] [address] PCP - General FAMILY PRACTICE 04/20/18 documented as of this encounter
--- OUTSIDE RECORDS SUMMARY | 2024-02-22 11:01 | XMS_ITS | Encounter Summary ---
Author Organization [facility] Address [address] [place] [address]. [place], [place] [address] [place] [address] Care Team Providers Care Production Truck Driver Name Role Phone Ryan Maloney DO Primary Care Provider + Encounter Details Date Type Department Care Team (Late st Contact Info) Description 08/01/2018 Orders Only [facility] Family & Internal Medicine [place] [id number] [place] [address] Ryan Maloney DO [address] [place] [address] Social History Tobacco Use Types Packs/Day [...] on file Legal Sex Male 11:15 AM TECHNICAL ADMINISTRATOR Gender Identity Not on file Sexual Orientation Not on file documented as of this encounter Plan of Treatment Not on file documented as of this encounter Procedures Procedure Name Priority Date/Time Associated Diagnosis Comments PROSTATE SPECIFIC ANTIGEN,SCREENING 08/01/2018 7:34 AM CDT documented in this encounter Results * PROSTATE SPECIFIC ANTIGEN,SCREENING (08/01/2018 7:34 AM CDT) PSA 1.7 0.0 - 4.0 ng/mL [facility] 1 Comment: Kristan ECLIA methodology. According to the [place] [employer], Serum PSA should decrease and [...] the presence or absence of malignant disease. 08/01/2018 7:34 AM CDT 08/01/2018 Narrative [facility] - 08/02/2018 4:06 AM CDT Performed at: ??01 - [facility] [address] ??[id number] Butter Melter: Hay Goodwin PhD, Phone: ??[phone] Ryan Maloney DO LABORATORY Final Re sult [facility] [address] [place] [address] [facility] 1 documented in this encounter Visit Diagnoses Not on filedocumented in this encounter Additional Health Concerns Assessment Noted Time PHQ-9 Depression Total Score: 0 04/26/19 19 9:30 AM TECHNICAL ADMINISTRATOR documented as of this encounter Care Teams Production Truck Driver Relationship Specialty Start Date End Date Ryan Maloney DO [address] [place] [address] PCP - General FAMILY PRACTICE 04/20/18 documented as of this encounter
--- OUTSIDE RECORDS SUMMARY | 2024-02-22 11:01 | XMS_ITS | Encounter Summary ---
Author Organization [facility] Address [address] [place] [address]. [place], [place] [address] [place] [address] Care Team Providers Care Critical Care Nurse Practitioner Name Role Phone Ryan Maloney DO Primary [...] on file Legal Sex Male 11:15 AM E COMMERCE DEVELOPER Gender Identity Not on file Sexual Orientation Not on file documented as of this encounter Plan of Treatment Not on file documented as of this encounter Visit Diagnoses Not on filedocumented in this encounter Additional Health Concerns Assessment Noted Time PHQ-9 Depression Total Score: 0 04/26/19 19 9:30 AM E COMMERCE DEVELOPER documented as of this encounter Care Teams Critical Care Nurse Practitioner Relationship Specialty Start Date End Date Ryan Maloney DO [address] [place] [address] PCP - General FAMILY PRACTICE 04/20/18 documented as of this encounter
--- OUTSIDE RECORDS SUMMARY | 2024-02-22 11:01 | XMS_ITS | Encounter Summary ---
Author Organization [facility] Address [address] [place] [address]. [place], [place] [address] [place] [address] Care Team Providers Care Exercise Physiologist Name Role Phone Ryan Maloney DO Primary Care Provider + Reason for Visit * Reason Onset Date Comments Advise 04/25/2018 AAA Encounter Details Date Type Department Care Team (Late st Contact Info) Description 04/25/2018 Telephone [facility] Family & Internal Medicine [facility] [address] [place] [address] Ryan Maloney DO [address] [place] [address] Advise (AAA) Social History Tobacco Use Types Packs/Day Years [...] on file Legal Sex Male 11:15 AM SCENE AND LIGHTING DESIGN LECTURER Gender Identity Not on file Sexual Orientation Not on file documented as of this encounter Progress Notes * Maddy Ontiveros RN - 04/27/2018 8:01 AM CST Records on Dr. Inés moya for review E AND LIGHTING DESIGN LECTURER * Maddy Ontiveros RN - 04/25/2018 2:13 PM CST Record request faxed. 04/25/18 E AND LIGHTING DESIGN LECTURER * Ryan Maloney DO - 04/25/2018 11:57 AM CST I'd just like to review it again to ensure he doesn't need to repeat it. Let's just ask for all hisrecords from [facility]; he had a notable stay around the same time. E AND LIGHTING DESIGN LECTURER * Angelina Washington RRT - 04/25/2018 11:49 AM CST Patient forgot that he had an u/s of AAA at [facility] in December and everything was ok. Does he need to have the [place] AAA screening that you ordered today or would you like to review the exam from [facility] before doing it again? Either way, please call patient back. Thanks E AND LIGHTING DESIGN LECTURER documented in this encounter Plan of Treatment Not on file documented as of this encounter Visit Diagnoses Not on filedocumented in this encounter Additional Health Concerns Assessment Noted Time PHQ-9 Depression Total Score: 0 04/26/19 19 9:30 AM SCENE AND LIGHTING DESIGN LECTURER documented as of this encounter Care Teams Exercise Physiologist Relationship Specialty Start Date End Date Ryan Maloney DO [address] [place] [address] PCP - General FAMILY PRACTICE 04/20/18 documented as of this encounter
--- OUTSIDE RECORDS SUMMARY | 2024-02-22 11:14 | XMS_ITS | Referral Summary ---
Author Organization [facility] [address] Address [address] [place] [address] Care Team Providers Care Social Work Specialist Name Role Phone Laz Lopez MD Primary Care Provider [phone] Allergies No known active allergies Medications pantoprazole DR (PROTONIX) 40 mg EC tablet 1 tablet daily. 04/13/2018 Active zinc acetate 25 mg (zinc) capsule Take 1 tablet by mouth daily. Active vit B wnnp-X-TY-copper -zinc 5-1.5-25 mg tablet Take 1 tablet by mouth daily. Active glucosamine HCl 1,500 mg tablet Take 1 tablet by mouth daily. Active influenza trivalent high dose 7917-2680 (FLUZONE HIGH-DOSE 2017-, PF,) 180 mcg/0.5 mL syringe 1 tablet daily. 11/30/2017 Active Active Problems Problem Noted Date Diagnosed Date Other chest pain 04/19/2018 Social History Tobacco Use Types Packs/Day Years Used Date Smoking Tobacco: Former Smokeless Tobacco: Never Comments:quite 50 yrs ago Alcohol Use Standard Drinks/Week Comments Yes 0 (1 standard drink = 0.6 oz pur e alcohol) quite 50 drugs Personal Safety Answer Date Recorded Getting School Help Needed Not on file 03/03 Sex and Gender Information Value Date Recorded Sex Assigned at Not on file Legal Sex Male 9:58 AM BRINE MIXER OPERATOR Gender Identity Not on file Sexual Orientation Not on file Last Filed Vital Signs Vital Sign Reading Time Taken Comments Blood Pressure 128/78 04/19/2018 3:10 PM BRINE MIXER OPERATOR Pulse 67 04/19/2018 3:10 PM BRINE MIXER OPERATOR Temperature - - Respiratory Rate - - Oxygen Saturation 98% 04/19/2018 3:10 PM BRINE MIXER OPERATOR Inhaled Oxygen Concentration - - Weight 76.7 kg (169 lb) 04/19/2018 3:10 PM BRINE MIXER OPERATOR Height 170.2 cm (5' 7 ) 04/19/2018 3:10 PM BRINE MIXER OPERATOR Body Mass Index 26.47 04/19/2018 3:10 PM BRINE MIXER OPERATOR Plan of Treatment Not on file Insurance MEDICARE [employer] SENIOR SUPPLEMENT Care Teams Social Work Specialist Relationship Specialty Start Date End Date Laz Lopez MD [address] [facility] [address] [facility] [place] [phone] PCP - General Internal Medicine 04/19/18
--- OUTSIDE RECORDS SUMMARY | 2024-02-22 11:14 | XMS_ITS | Encounter Summary ---
Author Organization [facility] Address [address] [place] [address] Care Team Providers Care Police Detention Attendant Name Role Phone Laz Lopez MD Primary Care Provider [phone] Encounter Details Date Type Department Care Team (Late st Contact Info) Description 03/19/2019 Orders Only [facility] Cardiology [address] [place] [address] ProviderWily MD [address] [place] [address] Social History Tobacco Use Types Packs/Day Years Used Date Smoking Tobacco: Former Smokeless Tobacco: Never Comments:quite 50 yrs ago Alcohol Use Standard Drinks/Week Comments Yes 0 (1 standard drink = 0.6 oz pur e alcohol) quite 50 drugs Sex and Gender Information Value Date Recorded Sex Assigned at Not on file Legal Sex Male 9:58 AM DUTY MANAGER Gender Identity Not on file Sexual Orientation Not on file documented as of this encounter Plan of Treatment Not on file documented as of this encounter Procedures Procedure Name Priority Date/Time Associated Diagnosis Comments LIPID PANEL Routine 01/04/2018 documented in this encounter Results * Lipid panel (01/04/2018) SCRIBED Cholesterol, Total 136 0 - 200 EXTERNAL LAB SCRIBED HDL 40 40 - 100 EXTERNAL LAB SCRIBED LDL 84 0 - 130 EXTERNAL LAB SCRIBED Triglycerides 85 0 - 150 EXTERNAL LAB Blood specimen (specimen) Historical Provider LAB BLOOD ORDERABLES Edit ed Result - Final EXTERNAL LAB documented in this encounter Visit Diagnoses Not on filedocumented in this encounter Care Teams Police Detention Attendant Relationship Specialty Start Date End Date Laz Lopez MD [address] [place] [address] PCP - General Internal Medicine 04/19/18 documented as of this encounter
--- OUTSIDE RECORDS SUMMARY | 2024-02-22 11:14 | XMS_ITS | Clinical Summary ---
Author Organization [facility] [place] [address] Address [address] [place] [address] Care Team Providers Care Bilingual Manager Name Role Phone Laz Lopez MD Primary Care Provider [phone] Allergies No known active allergies Medications pantoprazole DR (PROTONIX) 40 mg EC tablet 1 tablet daily. 04/13/2018 Active zinc acetate 25 mg (zinc) capsule Take 1 tablet by mouth daily. Active vit B oxgl-V-AM-copper -zinc 5-1.5-25 mg tablet Take 1 tablet by mouth daily. Active glucosamine HCl 1,500 mg tablet Take 1 tablet by mouth daily. Active influenza trivalent high dose [id number] (FLUZONE HIGH-DOSE 2017-, PF,) 180 mcg/0.5 mL syringe 1 tablet daily. 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 Gender Identity Not on file Sexual Orientation Not on file Obstetrics History Last Filed Vital Signs Vital Sign Reading Time Taken Comments Blood Pressure 128/78 04/19/2018 3:10 PM BREAST BUFFER Pulse 67 04/19/2018 3:10 PM BREAST BUFFER Temperature - - Respiratory Rate - - Oxygen Saturation 98% 04/19/2018 3:10 PM BREAST BUFFER Inhaled Oxygen Concentration - - Weight 76.7 kg (169 lb) 04/19/2018 3:10 PM BREAST BUFFER Height 170.2 cm (5' 7 ) 04/19/2018 3:10 PM BREAST BUFFER Body Mass Index 26.47 04/19/2018 3:10 PM BREAST BUFFER Plan of Treatment Not on file Insurance MEDICARE [employer] SENIOR SUPPLEMENT Care Teams Bilingual Manager Relationship Specialty Start Date End Date Laz Lopez MD [address] [place] [address] PCP - General Internal Medicine 04/19/18
--- OUTSIDE RECORDS SUMMARY | 2024-02-22 11:15 | XMS_ITS | Encounter Summary ---
Author Organization [facility] Address [address] [place] [address] Care Team Providers Care Is Project Manager Name Role Phone Unavailable Primary Care Provider Unavailabl e Encounter Details Date Type Department Care Team (Latest Contact Info) Description 11/09/2016 9:13 AM CDT Hospital Encounter [facility] OP Anup Santana MD [address] [address] Pain in right knee; Primary osteoarthritis of right knee Social History Tobacco Use Types Packs/Day Years Used Date Smoking Tobacco: Never Assessed Sex and Gender Information Value Date Recorded Sex Assigned at Not on file 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 THIS IS AN ELECTRONICALLY VERIFIED REPORT 11/09/2016 11:50 AM: ??Anup Santana M.D. ?? Anup Santana M.D. SH:golden 11:50 AM 11:50 AM [EOD] Narrative 11/09/2016 11:53 AM CDT EXAMINATION: ??AP, lateral and Kahn views right knee REASON FOR EXAM: ??Right knee pain FINDINGS: ??3 views of the right knee are reviewed. ??These images reveal mild degenerative change with a small amount of tibiofemoral and patellofemoral osteophyte formation. ??No fractures or dislocations are seen. ??There is no abnormal bone destruction or production noted. Procedure Note Provider, MD Wily - 07/07/2020 EXAMINATION: AP, lateral and Kahn views right knee REASON FOR EXAM: Right knee pain FINDINGS: 3 views of the right knee are reviewed. These images revealmild degenerative change with a small amount of tibiofemoral and patellofemoral osteophyte formation. No fractures or dislocations are seen. There is no abnormal bone destruction or production noted. IMPRESSION: Mild degenerative changes of the right knee. THIS IS AN ELECTRONICALLY VERIFIED REPORT 11/09/2016 11:50 AM: Anup Santana M.D. Anup Santana M.D. SH:golden 11:50 AM 11:50 AM [EOD] us Anup Santana MD IMG XR PROCEDURES Final Resu lt documented in this encounter Visit Diagnoses Diagnosis Pain in right knee Primary osteoarthritis of right knee documented in this encounter
--- OUTSIDE RECORDS SUMMARY | 2024-02-22 11:15 | XMS_ITS | Encounter Summary ---
Author Organization [facility] Address [address] [place] [address] Care Team Providers Care Blanker Press Operator Name Role Phone Laz Lopez MD Primary Care Provider [phone] Reason for Visit * Reason Comments Hospital Follow Up chest pain ,,SOB Encounter Details Date Type Department Care Team (Late st Contact Info) Description 04/19/2018 3:00 PM AMBULANCE DRIVER PARAMEDIC Office Visit [facility] [address] [place] [address] Rafat Freeman MD [address] [place] [address] Other chest pain (Primary Dx) Social History Tobacco Use Types Packs/Day Years Used Date Smoking Tobacco: Former Smokeless Tobacco: Never Comments:quite 50 yrs ago Alcohol Use Standard Drinks/Week Comments Yes 0 (1 standard drink = 0.6 oz pur e alcohol) quite 50 drugs Sex and Gender Information Value Date Recorded Sex Assigned at Not on file Legal Sex Male 9:58 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 PARAMEDIC Gender Identity Not on file Sexual Orientation Not on file documented as of this encounter Last Filed Vital Signs Vital Sign Reading Time Taken Comments Blood Pressure 128/78 04/19/2018 3:10 PM AMBULANCE DRIVER PARAMEDIC Pulse 67 04/19/2018 3:10 PM AMBULANCE DRIVER PARAMEDIC Temperature - - Respiratory Rate - - Oxygen Saturation 98% 04/19/2018 3:10 PM AMBULANCE DRIVER PARAMEDIC Inhaled Oxygen Concentration - - Weight 76.7 kg (169 lb) 04/19/2018 3:10 PM AMBULANCE DRIVER PARAMEDIC Height 170.2 cm (5' 7 ) 04/19/2018 3:10 PM AMBULANCE DRIVER PARAMEDIC Body Mass Index 26.47 04/19/2018 3:10 PM AMBULANCE DRIVER PARAMEDIC documented in this encounter Progress Notes * Rafat Freeman MD - 04/19/2018 3:00 PM CST [facility] FOLLOW UP 04/19/2018 Richard Pringle is a 72 y.o. male who presents for follow up of chest pain. This is a gentleman that I saw in consultation in December of 2017 at [facility]. He had some chest pain that I thought was atypical of angina he was seen in consultation at the request of the hospitalist. He did have a history of a false-positive stress test in the past which [facility]. There was also concern during this hospitalizationthat he had evidence of hemolytic anemia that was felt to be due to a cold agglutinin. Because of his symptoms and some risk factors I recommended seeing him at least once in the office for follow-upand when he was in the hospital I did not recommend pursuing an ischemic workup. He presents today for office follow-up after the above described hospital consultation. He is feeling perfectly fine and has no cardiovascular symptoms this gentleman even at his age exercises regularly in an aerobic fashion several times per week to a fairly high heart rate and is totally asymptomatic. For this reason I am not going to pursue any further cardiac evaluation at this time and I believe he can be seen in a p.r.n. Fashion. REVIEW OF SYSTEMS General ROS: negative for - chills, fatigue, fever, malaise, night sweats, weight gain or weight loss Psychological ROS: negative for - anxiety, depression, memory difficulties or sleep disturbances Ophthalmic ROS: negative for - blurry vision, decreased vision, loss of vision or scotomata ENT ROS: negative for - epistaxis, headaches, hearing change, nasal congestion, nasal discharge, sore throat, vertigo or visual changes Hematological and Lymphatic ROS: negative for - bleeding problems, blood clots, bruising, fatigue or weight loss Endocrine ROS: negative for - hot flashes, palpitations, polydipsia/polyuria or unexpected weight changes Respiratory ROS: negative for - cough, hemoptysis, orthopnea, shortness of breath, tachypnea or wheezing Cardiovascular ROS: negative for - chest pain, dyspnea on exertion, edema, irregular heartbeat, loss of consciousness, murmur, orthopnea, palpitations, paroxysmal nocturnal dyspnea, rapid heart rate or shortness of breath Gastrointestinal ROS: negative for - abdominal pain, appetite loss, blood in stools, constipation, diarrhea, gas/bloating, heartburn, hematemesis, melena or nausea/vomiting Genito-Urinary ROS: negative for - dysuria, erectile dysfunction or hematuria Musculoskeletal ROS: negative for - joint pain, muscle pain or muscular weakness Dermatological ROS: negative for dry skin, eczema, pruritus and rash HOME MEDICATIONS No current outpatient prescriptions on file. LABS AND OTHER DIAGNOSTIC TESTS No results found for: CHOL No results found for: HDL No results found for: LDLCALC No results found for: TRIG No results found for: CHOLHDL No results found for: WBC, HGB, HCT, MCV, PLT No lab exists for component: LABALBU PHYSICAL EXAM There were no vitals taken for this visit. Physical Examination: General appearance - alert, well appearing, and in no distress, oriented to person, place, and time and acyanotic, in no respiratory distress Mental status - affect appropriate to mood Eyes - extraocular eye movements intact, sclera anicteric, no pallor Ears - external earsappear normal, hearing grossly normal bilaterally Nose - normal and patent, no erythema or discharge Mouth - mucous membranes moist, pharynx appears normal, dental hygiene good and tongue normal Neck - supple, no significant neck masses, carotids upstroke normal bilaterally, no bruits, no JVD Chest - clear to auscultation, no wheezes, rales or rhonchi, symmetric air entry, no tachypnea, retractions or cyanosis Heart - normal rate, regular rhythm, normal S1, S2, no murmurs, rubs, clicks or gallops, no JVD Abdomen - soft, nontender, nondistended, no masses or organomegaly bowel sounds normal Neurological - alert, oriented, normal speech, no focal findings or movement disorder noted Musculoskeletal - no joint tenderness, deformity or swelling, no muscular tenderness noted Extremities - peripheral pulses normal, no pedal edema, no clubbing or cyanosis Skin - normal coloration and turgor, no rashes, no suspicious skin lesions noted ASSESSMENT Diagnoses and all orders for this visit: Other chest pain PLAN/RECOMMENDATIONS No cardiac recommendations patient will be seen p.r.n. Rafat Freeman MD LANCE DRIVER PARAMEDIC documented in this encounter Plan of Treatment Not on file documented as of this encounter Visit Diagnoses Diagnosis Other chest pain- Primary documented in this encounter Historical Medications * This list may reflect changes made after this encounter. influenza trivalent high dose (FLUZONE HIGH-DOSE 2017-, PF,) 180 mcg/0.5 mL syringe 1 tablet daily. 11/30/2017 glucosamine HCl 1,500 mg tablet Take 1 tablet by mouth daily. vit B mqgq-R-YO-copper- zinc 5-1.5-25 mg tablet Take 1 tablet by mouth daily. zinc acetate 25 mg (zinc) capsule Take 1 tablet by mouth daily. pantoprazole DR (PROTONIX) 40 mg EC tablet 1 tablet daily. 04/13/2018 added in this encounter Care Teams Blanker Press Operator Relationship Specialty Start Date End Date Laz Lopez MD [address] [place] [address] PCP - General Internal Medicine 04/19/18 documented as of this encounter
--- OUTSIDE RECORDS SUMMARY | 2024-02-22 11:15 | XMS_ITS ---
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 CLL (chronic lymphocytic leukemia) 01/17/2018 Current Oncology Plans OP ONC LYMPHOMA RITUXIMAB WEEKLY_EVERY 28 DAYS X 1 CYCLE* Plan Start Date: 07/10/2023 Plan Provider:Lucía Ricketts MD Linked Problems CLL (chronic lymphocytic wilmer kemia)Acute hemolytic anemiaCold agglutinin disease Treatment Medications Current Day (Day 8 , Cycle 1 - Planned for 07/18/2023) Next Day (Day 15, Cycle 1 - Planned for 07/25/2023) riTUXimab-abbs (TRUXIMA) 1 mg/mL IVPBriTUXimab-abbs (TRUXIMA) in NaCl 0.9% 250 mL IVPB riTUXimab-abbs (TRUXIMA) 683 mg in sodium chloride 0.9% 250 mL IVPB riTUXimab-abbs (TRUXIMA) 683 mg in sodium chloride 0.9% 250 mL IVPB Past Plans No past plan information found. Radiation Treatments * No radiation treatments are documented for this patient in [facility]. Treatments may have been administered in another system.
--- OUTSIDE RECORDS SUMMARY | 2024-02-22 11:15 | XMS_ITS | Encounter Summary ---
Author Organization [facility] Healthcare Address [address] [place] [address] Care Team Providers Care Automobile Upholsterer Name Role Phone Unavailable Primary Care Provider Unavailabl e Encounter Details Date Type Department Care Team (Latest Contact Info) Description 12/19/2016 6:44 PM CDT Hospital Encounter [facility] OP Anup Santana MD [address] [address] Closed nondisplaced bicondylar fracture of right tibia; Other tear of medial meniscus, current injury, right knee, initial encounter; Other tear of lateral meniscus, current injury, right knee, initial encounter; Sprain of medial collateral ligament of right knee Social History Tobacco Use Types Packs/Day Years Used Date Smoking Tobacco: Never Assessed Sex and Gender Information Value Date Recorded Sex Assigned at Not on file 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 1. ??There is a contusion of the medial tibial plateau with microtrabecular nondisplaced fracture. 2. ??There is a 0.5 x 1.5 cm focus of full-thickness chondromalacia of the weightbearing medial femoral condyle with mild chondromalacia of the medial tibial plateau. 3. ??Complex tear posterior horn medial meniscus with an oblique and prominent extending into the midbody. ??Small focus of the midbody extends into the inferior recess. 4. ??Grade 1 injury distal medial collateral ligament. 5. ??Complex tear mid body lateral meniscus with tearing extending into the posterior and anterior horns. 6. ??Moderate joint effusion. ??Moderate Call's cyst. THIS IS AN ELECTRONICALLY VERIFIED REPORT 12/20/2016 9:01 AM: ??Rafat Spaulding M.D. ?? Rafat Spaulding M.D. MJ:joleen 09:01 AM 09:01 AM BM [EOD] Narrative 12/20/2016 9:04 AM CDT EXAMINATION: ??MRI right knee without IV contrast. HISTORY: ??Right knee pain since August 2016. ??Patient received an injection in October which alleviated the pain, but then twisted the knee 2 weeks ago now having even more pain. COMPARISON: ??X-rays 11/09/2016. TECHNIQUE: ??Multiplanar MRI images of the right knee were obtained without IV contrast. FINDINGS: ??There is a microtrabecular fracture of the medial tibial plateau with prominent surrounding contusion. ??No displaced fracture. ??There is a 0.5 x 1.5 cm focus of full-thickness chondromalacia of the central weightbearing medial femoral condyle. ??Mild chondromalacia medial aspect of the medial tibial plateau. The extensor tendons are intact as are the medial and lateral patellar retinaculum. The ACL and PCL are intact. There is a complex tear of the posterior horn of the medial meniscus with radial and at the component extending to the inferior articular surface. ??The oblique component extends into the midbody. ??A small focus of the midbody extends into the inferior recess, coronal image 21 (). ??Medial collateral ligament is intact and increased T2 signal deep to and superficial to the more distal MCL. ??Grade 1 injury. There is a complex tear of the midbody of the lateral meniscus with a prominent irregular radial component with tearing extending into both the anterior and posterior horn. Lateral ligamentous structures and the popliteus are intact. There is a moderate joint effusion. ??Moderate Call's cyst. Procedure Note Provider, MD Wily - 07/07/2020 EXAMINATION: MRI right knee without IV contrast. HISTORY: Right knee pain since August 2016. Patient received an injectionin October which alleviated the pain, but then twisted the knee 2 weeks agonow having even more pain. COMPARISON: X-rays 11/09/2016. TECHNIQUE: Multiplanar MRI images of the right knee were obtained withoutIV contrast. FINDINGS: There is a microtrabecular fracture of the medial tibialplateau with prominent surrounding contusion. No displaced fracture. There is a0.5 x 1.5 cm focus of full-thickness chondromalacia of the centralweightbearing medial femoral condyle. Mild chondromalacia medial aspect of the medial tibial plateau. The extensor tendons are intact as are the medial and lateral patellar retinaculum. The ACL and PCL are intact. There is a complex tear of the posterior horn of the medial meniscus with radial and at the component extending to the inferior articular surface.The oblique component extends into the midbody. A small focus of the midbody extends into the inferior recess, coronal image 21 (12/32). Medialcollateral ligament is intact and increased T2 signal deep to and superficial to themore distal MCL. Grade 1 injury. There is a complex tear of the midbody of the lateral meniscus with a prominent irregular radial component with tearing extending into both the anterior and posterior horn. Lateral ligamentous structures and thepopliteus are intact. There is a moderate joint effusion. Moderate Call's cyst. IMPRESSION: 1. There is a contusion of the medial tibial plateau with microtrabecular nondisplaced fracture. 2. There is a 0.5 x 1.5 cm focus of full-thickness chondromalacia of the weightbearing medial femoral condyle with mild chondromalacia of themedial tibial plateau. 3. Complex tear posterior horn medial meniscus with an oblique andprominent extending into the midbody. Small focus of the midbody extends into the inferior recess. 4. Grade 1 injury distal medial collateral ligament. 5. Complex tear mid body lateral meniscus with tearing extending into the posterior and anterior horns. 6. Moderate joint effusion. Moderate Call's cyst. THIS IS AN ELECTRONICALLY VERIFIED REPORT 12/20/2016 9:01 AM: Rafat Spaulding M.D. Rafat Spaulding M.D. MJ:joleen 09:01 AM 09:01 AM [facility] [EOD] us Anup Santana MD IMG MRI PROCEDURES Final Res ult documented in this encounter Visit Diagnoses Diagnosis Closed nondisplaced bicondylar fracture of right tibia Other tear of medial meniscus, current injury, right knee, initial encounter Other tear of lateral meniscus, current injury, right knee, initial encounter Sprain of medial collateral ligament of right knee documented in this encounter
--- OUTSIDE RECORDS SUMMARY | 2024-02-22 11:15 | XMS_ITS | Encounter Summary ---
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 No 07/09/2023 Food Insecurity Answer Date Recorded Social/Environmental Concerns No concerns Transportation Needs Answer Date Record ed Social/Environmental Concerns No concerns Housing Stability Answer Date Recorded Social/Environmental Concerns No concerns Utility Needs Answer Date Recorded Social/Environmental Concerns No concerns Sex and Gender Information Value Date Recorded Sex Assigned at Not on file Gender Identity Not on file Sexual Orientation Not on file documented as of this encounter Plan of Treatment Upcoming Encounters Date Type Department Care Team (Late st Contact Info) Description 03/29/2024 10:30 AM BODY MAKER Office Visit [facility] Oncology and Hematology - [place] [address] [place] [address] Wisam Little MD [address] [facility] [place] [address] documented as of this encounter Visit Diagnoses Diagnosis 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
--- OUTSIDE RECORDS SUMMARY | 2024-02-22 11:16 | XMS_ITS | Encounter Summary ---
Author Organization [facility] Address [address] [place] [address] Care Team Providers Care Machine Biller Name Role Phone Ryan Maloney Baylee ARELLANO Primary Care Provider + Encounter Details Date Type Department Care Team (Late st Contact Info) Description 10/23/2023 Orders Only [facility] Oncology and Hematology - Sin 2[address] [facility] [address] [place] [address] Wisam Little MD 2227 [facility] [address] [place] [address] Hemolytic anemia due to cold [...] st Contact Info) Description 03/29/2024 10:30 AM FRAME TRIMMER Office Visit [facility] Oncology and Hematology - Sin [address] [facility] [address] [place] [address] Wisam Little MD 2[address] [facility] [address] [place] [address] documented as of this encounter Visit Diagnoses Diagnosis 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
--- OUTSIDE RECORDS SUMMARY | 2024-02-22 11:16 | XMS_ITS | Encounter Summary ---
Author Organization [facility] Address [address] [place] [address] Care Team Providers Care Insurance Claims Supervisor Name Role Phone Ryan Maloney Primary Care Provider + Encounter Details Date Type Department Care Team (Late st Contact Info) Description 10/11/2023 External Device Data STL ABSTRACTION Provider, Abstract NO ADDRESS ON FILE Social History Tobacco Use Types Packs/Day Years [...] st Contact Info) Description 03/29/2024 10:30 AM TRAIN ENGINEER Office Visit [facility] Oncology and Hematology - Sin [address] [facility] [address] [place] [address] Wisam Little MD 2[address] [facility] [address] [place] [address] documented as of this encounter Visit Diagnoses Not on filedocumented in this encounter Care Teams Insurance Claims Supervisor Relationship Specialty Start Date End Date Ryan Maloney DO [address] [place] [phone] PCP - General Family Practice 10/11/22 documented as of this encounter
--- OUTSIDE RECORDS SUMMARY | 2024-02-22 11:16 | XMS_ITS | Encounter Summary ---
Author Organization [facility] Address [address] [place] [address] Care Team Providers Care Digital Imaging Specialist Name Role Phone Ryan Maloney Baylee ARELLANO Primary Care Provider + Encounter Details Date Type Department Care Team (Late st Contact Info) Description 01/01/2024 Orders Only [facility] Oncology and Hematology - Sin 2[address] [facility] 200 [place] [address] Wisam Little MD 2227 [facility] [address] [place] [address] Hemolytic anemia due to cold [...] st Contact Info) Description 03/29/2024 10:30 AM CHEMISTRY TEACHER Office Visit [facility] Oncology and Hematology - Sin [address] [facility] [address] [place] [address] Wisam Little MD 2227 [facility] [address] [place] [address] documented as of this encounter Visit Diagnoses Diagnosis 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
--- OUTSIDE RECORDS SUMMARY | 2024-02-22 11:16 | XMS_ITS | Encounter Summary ---
Author Organization [email or web address] Address [address] [place] [address] Care Team Providers Care Wiring Mechanic Name Role Phone Ryan Maloney Baylee ARELLANO Primary Care Provider + Encounter Details Date Type Department Care Team (Late st Contact Info) Description 12/18/[address] [facility] Oncology and Hematology - Sin 2[address] [facility] 200 [place] [address] Wisam Little MD [address] [facility] [address] [place] [address] Hemolytic anemia due to cold [...] st Contact Info) Description 03/29/2024 10:30 AM IMPORT/EXPORT SPECIALIST Office Visit [facility] Oncology and Hematology - Sin [address] [facility] [address] [place] [address] Wisam Little MD [address] 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
--- OUTSIDE RECORDS SUMMARY | 2024-02-22 11:16 | XMS_ITS | Encounter Summary ---
Author Organization [facility] Address [address] [place] [address] Care Team Providers Care Insurance Licensing Supervisor Name Role Phone Ryan Maloney Baylee ARELLANO Primary Care Provider + Encounter Details Date Type Department Care Team (Late st Contact Info) Description 12/04/2023 Orders Only [facility] Oncology and Hematology - Sin 2[address] [facility] 200 [place] [address] Wisam Little MD 2227 [facility] [address] [place] [address] Hemolytic anemia due to cold [...] st Contact Info) Description 03/29/2024 10:30 AM GMAT INSTRUCTOR Office Visit [facility] Oncology and Hematology - Sin [address] [facility] [address] [place] [address] Wisam Little MD 2[address] [facility] [address] [place] [address] documented as of this encounter Visit Diagnoses Diagnosis 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
--- OUTSIDE RECORDS SUMMARY | 2024-02-22 11:16 | XMS_ITS | Encounter Summary ---
Author Organization [facility] Address [address] [place] [address] Care Team Providers Care Trench Pipe Layer Helper Name Role Phone Ryan Maloney Primary Care [...] st Contact Info) Description 03/29/2024 10:30 AM CYBER LEGAL ADVISOR Office Visit [facility] Oncology and Hematology - Sin [address] [facility] [address] [place] [address] Wisam Little MD [address] [facility] [address] [place] [address] documented as of this encounter Visit Diagnoses Not on filedocumented in this encounter Care Teams Trench Pipe Layer Helper Relationship Specialty Start Date End Date Ryan Maloney DO [address] [place] [phone] PCP - General Family Practice 10/11/22 documented as of this encounter
--- OUTSIDE RECORDS SUMMARY | 2024-02-22 11:16 | XMS_ITS | Encounter Summary ---
Author Organization [facility]ENTER[facility] Address [address] [place] [address] Care Team Providers Care Outreach And Education Social Worker Name Role Phone Ryan Maloney Baylee ARELLANO Primary Care Provider + Encounter Details Date Type Department Care Team (Late st Contact Info) Description 01/11/2024 Orders Only [facility] Oncology and Hematology - Sin [address] [facility] 200 [place] [address] Wisam Little MD 2[address] [facility] [address] [place] [address] Social History Tobacco Use Types Packs/Day Years [...] st Contact Info) Description 03/29/2024 10:30 AM PODOPEDIATRICIAN Office Visit [facility] Oncology and Hematology - Sin [address] [facility] [address] [place] [address] Wisam Little MD [address] [facility] [address] [place] [address] documented as of this encounter Procedures Procedure Name Priority Date/Time Associated Diagnosis Comments IRON LEVEL Routine 01/08/2024 8:08 AM PODOPEDIATRICIAN documented in this encounter Results * IRON LEVEL (01/08/2024 8:08 AM PODOPEDIATRICIAN) Blood Wisam Little MD CHEMISTRY ORDERABLES documented in this encounter Visit Diagnoses Not on filedocumented in this encounter Care Teams Outreach And Education Social Worker Relationship Specialty Start Date End Date Ryan Maloney DO [address] [place] [phone] PCP - General Family Practice 10/11/22 documented as of this encounter
--- OUTSIDE RECORDS SUMMARY | 2024-02-22 11:16 | XMS_ITS | Encounter Summary ---
Author Organization [facility]OR[facility]ack[facility] Address [address] [place] [address] Care Team Providers Care Chicken Cleaner Name Role Phone Ryan Maloney Baylee ARELLANO Primary Care Provider + Encounter Details Date Type Department Care Team (Late st Contact Info) Description 01/29/2024 Orders Only [facility] Oncology and Hematology - Sin 2[address] [facility] [address] [place] [address] Wisam Little MD 2[address] [facility] [address] [place] [address] Hemolytic anemia due to cold [...] st Contact Info) Description 03/29/2024 10:30 AM BULLION WEIGHER Office Visit [facility] Oncology and Hematology - Sin [address] [facility] [address] [place] [address] Wisam Little MD [address] [facility] [address] [place] [address] documented as of this encounter Visit Diagnoses Diagnosis 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
--- OUTSIDE RECORDS SUMMARY | 2024-02-22 11:16 | XMS_ITS | Encounter Summary ---
Author Organization [facility] Address [address] [place] [address] Care Team Providers Care Technology Education Teacher Name Role Phone Ryan Maloney Baylee ARELALNO Primary Care Provider + Encounter Details Date Type Department Care Team (Late st Contact Info) Description 11/06/2023 Orders Only [facility] Oncology and Hematology - Sin 2227 [facility] 200 [place] [address] Wisam Little MD [address] [facility] [address] [place] [address] Hemolytic anemia due to cold [...] st Contact Info) Description 03/29/2024 10:30 AM SENIOR FACILITIES MANAGER Office Visit [facility] Oncology and Hematology - Sin [address] [facility] [address] [place] [address] Wisam Little MD [address] [facility] [address] [place] [address] documented as of this encounter Visit Diagnoses Diagnosis 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
--- OUTSIDE RECORDS SUMMARY | 2024-02-22 11:16 | XMS_ITS | Encounter Summary ---
Author Organization [facility] Address [address] [place] [address] Care Team Providers Care Live In Housekeeper Nanny Name Role Phone Ryan Maloney Primary Care [...] st Contact Info) Description 03/29/2024 10:30 AM TUFTER Office Visit [facility] Oncology and Hematology - Sin [address] [facility] [address] [place] [address] Wisam Little MD 2224 [facility] [address] [place] [address] documented as of this encounter Visit Diagnoses Not on filedocumented in this encounter Care Teams Live In Housekeeper Nanny Relationship Specialty Start Date End Date Ryan aMloney DO [address] [place] [phone] PCP - General Family Practice 10/11/22 documented as of this encounter
--- OUTSIDE RECORDS SUMMARY | 2024-02-22 11:16 | XMS_ITS | Encounter Summary ---
Author Organization [facility] Address [address] [place] [address] Care Team Providers Care Consumer Education Specialist Name Role Phone Ryan Maloney Primary Care Provider + Encounter Details Date Type Department Care Team (Late st Contact Info) Description 10/24/2023 External Device Data STL ABSTRACTION Provider, Abstract [...] st Contact Info) Description 03/29/2024 10:30 AM CONE CHOCOLATE DIPPER Office Visit [facility] Oncology and Hematology - Sin [address] [facility] [address] [place] [address] Wisam Little MD [address] [facility] [address] [place] [address] documented as of this encounter Visit Diagnoses Not on filedocumented in this encounter Care Teams Consumer Education Specialist Relationship Specialty Start Date End Date Ryan Maloney DO [address] [place] [phone] PCP - General Family Practice 10/11/22 documented as of this encounter
--- OUTSIDE RECORDS SUMMARY | 2024-02-22 11:16 | XMS_ITS | Encounter Summary ---
Author Organization [facility] Address [address] [place] [address] Care Team Providers Care Solutions Executive Cloud Sales Name Role Phone Ryan Maloney Primary Care Provider + Encounter Details Date Type Department Care Team (Late st Contact Info) Description 11/28/2023 External Device Data STL ABSTRACTION Provider, Abstract [...] st Contact Info) Description 03/29/2024 10:30 AM ELECTRICAL ENGINEERING TECHNICIAN Office Visit [facility] Oncology and Hematology - Sin [address] [facility] [address] [place] [address] Wisam Little MD 2[address] [facility] [address] [place] [address] documented as of this encounter Visit Diagnoses Not on filedocumented in this encounter Care Teams Solutions Executive Cloud Sales Relationship Specialty Start Date End Date Ryan Maloney DO [address] [place] [phone] PCP - General Family Practice 10/11/22 documented as of this encounter
--- OUTSIDE RECORDS SUMMARY | 2024-02-22 11:16 | XMS_ITS | Encounter Summary ---
Author Organization [facility]INPrice[facility] [employer] [facility] [facility] Address [address] [place] [address] Care Team Providers Care Wood Milling Machine Hand Name Role Phone Ryan Maloney Baylee ARELLANO Primary Care Provider + Reason for Visit * Reason Comments Follow Up Encounter Details Date Type Department Care Team (Late st Contact Info) Description 01/16/2024 11:15 AM OUTPLACEMENT CONSULTANT Office Visit [facility] Oncology and Hematology - Sin [address] [place] [address] [facility] 200 [place] [address] Wisam Little MD 2227 [facility] [address] [place] [address] 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) Social History Tobacco Use Types [...] Sign Reading Time Taken Comments Blood Pressure 150/84 01/16/2024 11:58 AM OUTPLACEMENT CONSULTANT Pulse 81 01/16/2024 11:53 AM OUTPLACEMENT CONSULTANT Temperature 36.9 ??C (98.4 ??F) 01/16/2024 11:[address] Respiratory Rate 16 01/16/2024 11:53 AM OUTPLACEMENT CONSULTANT Oxygen Saturation 96% 01/16/2024 11:53 AM OUTPLACEMENT CONSULTANT Inhaled Oxygen Concentration - - Weight 74.9 kg (165 lb 3.2 oz) 01/16/2024 11:53 AM OUTPLACEMENT CONSULTANT Height - - Body Mass Index 25.87 07/13/2023 9:37 AM CDT documented in this encounter Progress Notes * Wisam Little MD - 01/16/2024 1:07 PM CST HEMATOLOGY / ONCOLOGY PROGRESS NOTE Patient Identification: Name: Richard Pringle Age: 78 y.o. 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 Patient completed last weekly Rituxan treatment on August 16, 2023. SUBJECTIVE Patient came to the office for follow-up visit. He is complaining of some more tiredness and fatigue with dyspnea on exertion. No chest pain and shortness of breath. No other new complaint. Review of system Constitutional: denies fevers, sweats, weight and appetite stable, complain of tiredness and fatigue HEENT: denies sinus congestion, hearing or vision problems Respiratory: denies cough, dyspnea, wheeze, complain of dyspnea on exertion Cardiovascular: denies chest pain, exertional chest pressure/discomfort, nausea, syncope, shortnessof breath GI: denies constipation, diarrhea, dsyphagia, reflux symptoms, vomiting, melena : denies dysuria, frequency, incontinence, urgency Integumentary system: no lymphadenopathy, sweats, flushing Musculoskeletal: denies: myalgia, arthralgia Neurological: denies blurry or disturbed vision, numbness/weakness, dizziness Skin: No lumps, bumps or rashes. 12 point review of system was reviewed Objective: Vital signs in last 24 hours: As per nursing note Exam: General appearance: alert, cooperative, no distress, appears stated age Head: normocephalic, without obvious abnormality, atraumatic Eyes: conjunctivae/corneas clear, EOM's intact Ears: normal external ear canals AU Nose: Nares normal. Septum midline. Mucosa normal. No drainage or sinus tenderness Throat: Lips, mucosa, and tongue normal. Teeth and gums normal Neck: supple, symmetrical, trachea midline. Lungs: clear to auscultation bilaterally Heart: regular rate and rhythm, S1, S2 normal, no murmur, click, rub or gallop Abdomen: soft, non-tender. Bowel sounds normal. No masses, No organomegaly Extremities: extremities normal, atraumatic, no cyanosis or edema Skin: Skin color, texture, turgor normal. No rashes or lesions Lymph nodes: No lymphadenopathy Neuro: No obvious focal deficit Exam as above PATH LABS Labs from December 11, 2018 showed WBC 7.7 hemoglobin 13 platelet 196,000 neutrophils 60% [id number]% LDH 631 creatinine 1.0 calcium 8.0 total bilirubin 1.4. Labs from January 26 showed total bilirubin 2.2 hemoglobin 12.2 WBC 9.3 platelet 200,000 neutrophils 52% haptoglobin less than 8 Labs from July 27 showed WBC 8.6 hemoglobin 11.6 platelet 144,000 neutrophils 58% with a 31% total bilirubin 2.4 Labs from November 27 showed creatinine 0.9 total bilirubin 2.7 AST 66 ALT 20 B12 663 iron 172 saturation 60 ferritin 592 WBC 7.9 hemoglobin 11.8 platelet 207,000 neutrophils 52% Labs from March 30 showed creatinine 1.1 total bilirubin 2.8 WBC 8.4 hemoglobin 11.9 platelet 212,000 iron 148 saturation 50% ferritin 500 Labs from October 06 showed hemoglobin 12.5 total bilirubin 3.2 AST 66 ALT 18 iron 163 iron saturation 50% ferritin 421 Labs from April 08 showed iron 98 saturation 30% ferritin 340 creatinine 1.1 AST 46 ALT 23 WBC 10.2 hemoglobin 11.6 platelet was clumped Labs from October 06 showed total bilirubin 2.8 iron 187 saturation 60% ferritin 295 WBC 10.8 hemoglobin 12 platelet 207,000 neutrophil 48% lymphocyte 40% Labs from February 02 showed iron 157 saturation 55 ferritin 349 creatinine 1.0 total bilirubin 3.1WBC 12 hemoglobin 10.8 platelet 1 60,000 neutrophils 48% lymphocytes 40% Labs from April 05 showed creatinine 1.0 total bilirubin 3.5 LDH 298 iron 218 saturation 76 ferritin 356 WBC 12.1 hemoglobin 10.2 platelet 186,000 neutrophil 50% lymphocyte 37% Labs from July 11 showed WBC 21 hemoglobin 7.2 platelet count of 311,000 Labs from July 25 showed WBC 5.4 hemoglobin 9.7 platelet 108,000 MCV 100.4 creatinine 1.2 Labs from August 08 showed WBC 7 hemoglobin 9.9 platelet 61,000 Labs from August 29 showed hemoglobin 12 WBC 9.0 platelet 89,000 creatinine 1.2 Labs from October 05 showed WBC 7.8 hemoglobin 13 platelet 1 35,000 neutrophils 68% creatinine 1.1 Labs from January 07 showed WBC 9.1 hemoglobin 10.4 platelet 1 62,000 creatinine 1.0 iron 111 saturation 39% ferritin 516 Assessment: Plan: Patient Active Problem List Diagnosis Date Noted 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 Patient has a history of cold agglutinin hemolytic anemia and work-up including flow cytometric analysis showed CLL. 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 Patient completed weekly Rituxan treatment #5 on August 16, 2023. Labs showed decline in hemoglobin. He is more symptomatic with tiredness and fatigue and shortness of breath. Hemoglobin is back to his baseline. He will continue folic acid once a day and follow-up in 3 months. Hereditary hemochromatosis with H63D heterozygous state. He will continue to avoid iron supplement.Ferritin remains elevated. Repeat labs in 3 months. 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
--- OUTSIDE RECORDS SUMMARY | 2024-02-22 11:16 | XMS_ITS | Encounter Summary ---
Author Organization [facility] Address [address] [place] [address] Care Team Providers Care Onsite Health Coach Name Role Phone Ryan Maloney Baylee ARELLANO Primary Care Provider + Encounter Details Date Type Department Care Team (Late st Contact Info) Description 01/10/2024 Orders Only [facility] Oncology and Hematology - Sin [address] [facility] 200 [place] [address] Wisam Little MD 2[address] [facility] [address] [place] [address] Social History Tobacco Use Types [...] st Contact Info) Description 03/29/2024 10:30 AM IOS ARCHITECT Office Visit [facility] Oncology and Hematology - Sin [address] [facility] [address] [place] [address] Wisam Little MD 2[address] [facility] [address] [place] [address] documented as of this encounter Procedures Procedure Name Priority Date/Time Associated Diagnosis Comments CBC WITH DIFFERENTIAL Routine 01/08/2024 3:34 PM IOS ARCHITECT BASIC METABOLIC PANEL Routine 01/08/2024 2:25 PM IOS ARCHITECT documented in this encounter Results * CBC WITH DIFFERENTIAL (01/08/2024 3:34 PM IOS ARCHITECT) Blood Wisam Little MD HEMATOLOGY ORDERABLE S * BASIC METABOLIC PANEL (01/08/2024 2:25 PM IOS ARCHITECT) Blood Wisam Little MD CHEMISTRY ORDERABLES documented in this encounter Visit Diagnoses Not on filedocumented in this encounter Care Teams Onsite Health Coach Relationship Specialty Start Date End Date Ryan Maloney DO [address] [place] [phone] PCP - General Family Practice 10/11/22 documented as of this encounter
--- OUTSIDE RECORDS SUMMARY | 2024-02-22 11:16 | XMS_ITS | Encounter Summary ---
Author Organization [facility] Address [address] [place] [address] Care Team Providers Care Alcohol And Drug Counselor Name Role Phone Ryan Maloney Baylee ARELLANO Primary Care Provider + Encounter Details Date Type Department Care Team (Late st Contact Info) Description 11/20/2023 Orders Only [facility] Oncology and Hematology - Sin [address] [facility] 200 [place] [address] Wisam Little MD [address] [facility] [address] [place] [address] Hemolytic anemia due to cold [...] st Contact Info) Description 03/29/2024 10:30 AM AUTOMATIC THREAD WINDER Office Visit [facility] Oncology and Hematology - Sin [address] [facility] [address] [place] [address] Wisam Little MD 2[address] [facility] [address] [place] [address] documented as of this encounter Visit Diagnoses Diagnosis 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
--- OUTSIDE RECORDS SUMMARY | 2024-02-22 11:16 | XMS_ITS | Encounter Summary ---
Author Organization [facility] Address [address] [place] [address] Care Team Providers Care Warp Placer Name Role Phone Ryan Maloney Baylee ARELLANO Primary Care Provider + Encounter Details Date Type Department Care Team (Late st Contact Info) Description 01/15/2024 Orders Only [facility] Oncology and Hematology - Sin [address] [facility] 200 [place] [address] Wisam Little MD [address] [facility] [address] [place] [address] Hemolytic anemia due to cold [...] st Contact Info) Description 03/29/2024 10:30 AM TEACHING ASSISTANT Office Visit [facility] Oncology and Hematology - [place] [address] [facility] [address] [place] [address] Wisam Little MD [address] [facility] [address] [place] [address] documented as of this encounter Visit Diagnoses Diagnosis 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
--- OUTSIDE RECORDS SUMMARY | 2024-02-22 11:16 | XMS_ITS | Encounter Summary ---
Author Organization [facility] Address [address] [place] [address] Care Team Providers Care Retail Warehouse Associate Name Role Phone Ryan Maloney Primary Care [...] st Contact Info) Description 03/29/2024 10:30 AM CLOCK REPAIRER Office Visit [facility] Oncology and Hematology - Sin [address] [place] [address] Wisam Little MD [address] [facility] [address] [place] [address] documented as of this encounter Visit Diagnoses Not on filedocumented in this encounter Care Teams Retail Warehouse Associate Relationship Specialty Start Date End Date Ryan Maloney DO [address] [place] [phone] PCP - General Family Practice 10/11/22 documented as of this encounter
--- OUTSIDE RECORDS SUMMARY | 2024-02-22 11:17 | XMS_ITS | Encounter Summary ---
Author Organization [facility] Address [address] [place] [address] Care Team Providers Care Liquified Natural Gas Specialist Name Role Phone Ryan Maloney Primary Care Provider + Encounter Details Date Type Department Care Team (Late st Contact Info) Description 10/10/2023 External Device Data STL ABSTRACTION Provider, Abstract [...] st Contact Info) Description 03/29/2024 10:30 AM KNIFE OPERATOR Office Visit [facility] Oncology and Hematology - Sin [address] [facility] [address] [place] [address] Wisam Little MD [address] [facility] [address] [place] [address] documented as of this encounter Visit Diagnoses Not on filedocumented in this encounter Care Teams Liquified Natural Gas Specialist Relationship Specialty Start Date End Date Ryan Maloney DO [address] [place] [phone] PCP - General Family Practice 10/11/22 documented as of this encounter
--- OUTSIDE RECORDS SUMMARY | 2024-02-22 11:17 | XMS_ITS | Encounter Summary ---
Author Organization [facility] Address [address] [place] [address] Care Team Providers Care Timber Incisor Operator Name Role Phone Ryan Maloney Primary Care Provider + Encounter Details Date Type Department Care Team (Late st Contact Info) Description 10/03/2023 External Device Data STL ABSTRACTION Provider, Abstract [...] st Contact Info) Description 03/29/2024 10:30 AM SOFTWARE DATABASE ARCHITECT Office Visit [facility] Oncology and Hematology - Sin [address] [facility] [address] [place] [address] Wisam Little MD [address] [facility] [address] [place] [address] documented as of this encounter Visit Diagnoses Not on filedocumented in this encounter Care Teams Timber Incisor Operator Relationship Specialty Start Date End Date Ryan Maloney DO [address] [place] [phone] PCP - General Family Practice 10/11/22 documented as of this encounter
--- OUTSIDE RECORDS SUMMARY | 2024-02-22 11:17 | XMS_ITS | Encounter Summary ---
Author Organization [facility] Address [address] [place] [address] Care Team Providers Care Sales And Production Manager Name Role Phone Ryan Maloney Baylee ARELLANO Primary Care Provider + Encounter Details Date Type Department Care Team (Late st Contact Info) Description 10/09/2023 Orders Only [facility] Oncology and Hematology - Sin [address] [facility] 200 [place] [address] Wisam Little MD [address] [facility] [address] [place] [address] Hemolytic anemia due to cold [...] st Contact Info) Description 03/29/2024 10:30 AM WANT AD CLERK Office Visit [facility] Oncology and Hematology - [place] [address] [facility] [address] [place] [address] Wisam Little MD [address] [facility] [address] [place] [address] documented as of this encounter Procedures Procedure Name Priority Date/Time Associated Diagnosis Comments BASIC METABOLIC PANEL Routine 10/06/2023 3:02 PM CDT CBC WITH DIFFERENTIAL Routine 10/06/2023 1:04 PM CDT documented in this encounter Results * BASIC METABOLIC PANEL (10/06/2023 3:02 PM CDT) Blood Wisam Little MD CHEMISTRY ORDERABLES * CBC WITH DIFFERENTIAL (10/06/2023 1:04 PM CDT) Blood Wisam Little MD HEMATOLOGY ORDERABLE S documented in this encounter Visit Diagnoses Diagnosis 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 [place] [phone] PCP - General Family Practice 10/11/22 documented as of this encounter
--- OUTSIDE RECORDS SUMMARY | 2024-02-22 11:17 | XMS_ITS | Encounter Summary ---
Author Organization [facility] [employer] [facility] Address [address] [place] [address] Care Team Providers Care Flight Hostess Name Role Phone Ryan Maloney Baylee ARELLANO Primary Care Provider + Reason for Visit * Reason Comments Follow Up Encounter Details Date Type Department Care Team (Late st Contact Info) Description 10/10/2023 11:30 AM CDT Office Visit [facility] Oncology and Hematology - [place] [address] [place] [address] [address] [place] [address] Wisam Little MD [address] [facility] [address] [place] [address] CLL (chronic lymphocytic leukemia) (Primary Dx); Iron overload Social History Tobacco Use Types Packs/Day Years [...] Sign Reading Time Taken Comments Blood Pressure 139/73 10/10/2023 11:22 AM CDT Pulse 57 10/10/2023 11:22 AM CDT Temperature 36.8 ??C (98.2 ??F) 10/10/2023 11:22 AM C DT Respiratory Rate 16 10/10/2023 11:22 AM CDT Oxygen Saturation 98% 10/10/2023 11:22 AM CDT Inhaled Oxygen Concentration - - Weight 75.8 kg (167 lb) 10/10/2023 11:22 AM CDT Height - - Body Mass Index 26.16 07/13/2023 9:37 AM CDT documented in this encounter Progress Notes * Wisam Little MD - 10/10/2023 11:48 AM CDT HEMATOLOGY / ONCOLOGY PROGRESS NOTE Patient Identification: Name: Richard Pringle Age: 77 y.o. 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 Patient completed last weekly Rituxan treatment on August 16, 2023. SUBJECTIVE Patient came to the office for follow-up visit. He is feeling much better and more stronger. Deniesany bleeding and bruising. No chest pain and shortness of breath. Denies any new lumps bumps lymphadenopathy. No other new complaints. Review of system Constitutional: denies fevers, sweats, weight and appetite stable, denies any tiredness and fatigue HEENT: denies sinus congestion, hearing or vision problems Respiratory: denies cough, dyspnea, wheeze Cardiovascular: denies chest pain, exertional chest pressure/discomfort, [...] 7.7 hemoglobin 13 platelet 196,000 neutrophils 60% [id number]% LDH 631 creatinine 1.0 calcium 8.0 total [...] platelet 1 35,000 neutrophils 68% creatinine 1.1 Assessment: Plan: Patient Active Problem List Diagnosis [...] #5 on August 16, 2023. Labs showed further improvement in hemoglobin now up to 13. This is the best hemoglobin since 2019.He is feeling much better and stronger. He will continue folic acid once a day. Follow-up in 3 months. Hereditary hemochromatosis with H63D heterozygous state. He will continue to avoid iron supplement and blood transfusions. We will check iron studies in 3 months. 10/10/2023 Wisam Little MD documented in this encounter Plan of Treatment Upcoming Encounters Date Type Department Care Team (Late st Contact Info) Description 03/29/2024 10:30 AM EXPLOSIVES HANDLER Office Visit [facility] Oncology and Hematology - [place] [address] [facility] [address] [place] [address] Wisam Little MD [address] [facility] [address] [place] [address] Scheduled Orders Name Type Priority Associated Diagnoses Orde r Schedule CBC WITH DIFFERENTIAL Lab Stat Iron overload Expected: 01/02/2024, Expires: 10/09/2024 BASIC METABOLIC PANEL Lab Stat Iron overload Expected: 01/02/2024, Expires: 10/09/2024 FERRITIN Lab Routine Iron overload Expected: 01/02/2024, Expires: 10/09/2024 IRON, TIBC, AND PERCENT SATURATION Lab Routine Iron overload Expected: 01/02/2024, Expires: 10/09/2024 documented as of this encounter Visit Diagnoses Diagnosis CLL (chronic lymphocytic leukemia)- Primary Chronic lymphoid leukemia, without mention of having achieved remission Iron overload Other disorders of iron metabolism documented in this encounter Care Teams Flight Hostess Relationship Specialty Start Date End Date Ryan Maloney DO [address] [place] [phone] PCP - General Family Practice 10/11/22 documented as of this encounter
--- OUTSIDE RECORDS SUMMARY | 2024-02-22 11:18 | XMS_ITS | Encounter Summary ---
Author Organization [facility] Address [address] [place] [address] Care Team Providers Care Jewel Hole Cornerer Name Role Phone Ryan Maloney Baylee ARELLANO Primary Care Provider + Encounter Details Date Type Department Care Team (Late st Contact Info) Description 08/28/2023 Orders Only [facility] Oncology and Hematology - Sin [address] [facility] 200 [place] [address] Wisam Little MD [address] [facility] [address] [place] [address] Hemolytic anemia due to cold [...] st Contact Info) Description 03/29/2024 10:30 AM SURVEYING OR SPATIAL SCIENCE TECHNICIAN Office Visit [facility] Oncology and Hematology - Sin [address] [facility] [address] [place] [address] Wisam Little MD [address] [facility] [address] [place] [address] documented as of this encounter Visit Diagnoses Diagnosis 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
--- OUTSIDE RECORDS SUMMARY | 2024-02-22 11:18 | XMS_ITS | Encounter Summary ---
Author Organization [facility] Address [address] [place] [address] Care Team Providers Care Improvement Director Name Role Phone Ryan Maloney Primary Care Provider + Encounter Details Date Type Department Care Team (Late st Contact Info) Description 09/05/2023 External Device Data STL ABSTRACTION Provider, Abstract [...] st Contact Info) Description 03/29/2024 10:30 AM VP PRODUCT MANAGEMENT Office Visit [facility] Oncology and Hematology - Sin [address] [facility] [address] [place] [address] Wisam Little MD [address] [facility] [address] [place] [address] documented as of this encounter Visit Diagnoses Not on filedocumented in this encounter Care Teams Improvement Director Relationship Specialty Start Date End Date Ryan Maloney DO [address] [place] [phone] PCP - General Family Practice 10/11/22 documented as of this encounter
--- OUTSIDE RECORDS SUMMARY | 2024-02-22 11:18 | XMS_ITS | Encounter Summary ---
Author Organization [facility] Address [address] [place] [address] Care Team Providers Care Roving Sizer Name Role Phone Ryan Maloney Baylee ARELLANO Primary Care Provider + Encounter Details Date Type Department Care Team (Late st Contact Info) Description 09/25/2023 Orders Only [facility] Oncology and Hematology - Sin [address] [facility] 200 [place] [address] Wisam Little MD [address] [facility] [address] [place] [address] Hemolytic anemia due to cold [...] st Contact Info) Description 03/29/2024 10:30 AM SISTER SUPERIOR Office Visit [facility] Oncology and Hematology - Sin [address] [facility] [address] [place] [address] Wisam Little MD [address] [facility] [address] [place] [address] documented as of this encounter Visit Diagnoses Diagnosis 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
--- OUTSIDE RECORDS SUMMARY | 2024-02-22 11:18 | XMS_ITS | Encounter Summary ---
Author Organization [facility] Address [address] [place] [address] Care Team Providers Care Crime Victim Specialist Name Role Phone Ryan Maloney Primary Care Provider + Encounter Details Date Type Department Care Team (Late st Contact Info) Description 09/12/2023 External Device Data STL ABSTRACTION Provider, Abstract [...] st Contact Info) Description 03/29/2024 10:30 AM YARD TRUCK DRIVER Office Visit [facility] Oncology and Hematology - Sin [address] [place] [address] Wisam Little MD [address] [facility] [address] [place] [address] documented as of this encounter Visit Diagnoses Not on filedocumented in this encounter Care Teams Crime Victim Specialist Relationship Specialty Start Date End Date Ryan Maloney DO [address] [place] [phone] PCP - General Family Practice 10/11/22 documented as of this encounter
--- OUTSIDE RECORDS SUMMARY | 2024-02-22 11:18 | XMS_ITS | Encounter Summary ---
Author Organization [facility] Address [address] [place] [address] Care Team Providers Care Computer Specialist Name Role Phone Ryan Maloney Baylee ARELLANO Primary Care Provider + Encounter Details Date Type Department Care Team (Late st Contact Info) Description 08/30/2023 Orders Only [facility] Oncology and Hematology - Sin [address] [facility] 200 [place] [address] Wisam Little MD [address] [facility] [address] [place] [address] Social History Tobacco Use Types [...] st Contact Info) Description 03/29/2024 10:30 AM SPA DIRECTOR/FINANCE Office Visit [facility] Oncology and Hematology - [place] [address] [facility] [address] [place] [address] Wisam Little MD [address] [facility] [address] [place] [address] documented as of this encounter Procedures Procedure Name Priority Date/Time Associated Diagnosis Comments CBC WITH DIFFERENTIAL Routine 08/30/2023 3:54 PM CDT documented in this encounter Results * CBC WITH DIFFERENTIAL (08/30/2023 3:54 PM CDT) Blood Wisam Little MD HEMATOLOGY ORDERABLE S documented in this encounter Visit Diagnoses Not on filedocumented in this encounter Care Teams Computer Specialist Relationship Specialty Start Date End Date Ryan Maloney DO [address] [place] [phone] PCP - General Family Practice 10/11/22 documented as of this encounter
--- OUTSIDE RECORDS SUMMARY | 2024-02-22 11:18 | XMS_ITS | Encounter Summary ---
Author Organization [facility] [employer]ARTINSlim[employer] [facility] Address [address] [place] [address] Care Team Providers Care Material Lister Name Role Phone Ryan Maloney Baylee ARELLANO Primary Care Provider + Reason for Visit * Reason Comments Follow Up Cancer Encounter Details Date Type Department Care Team (Late st Contact Info) Description 08/31/2023 9:15 AM CDT Office Visit [facility] Oncology and Hematology - [place] [address] [place] [address] [address] [place] [address] Wisam Little MD [address] [facility] [address] [place] [address] CLL (chronic lymphocytic leukemia) (Primary Dx) Social History Tobacco Use Types Packs/Day Years Used Date Smoking Tobacco: Former Cigarettes 1.5 4 1 03/19/1961 - 01/17/1966 Smokeless Tobacco: Never Tobacco Cessation:Counseling Given: Not Answered Alcohol Use Standard Drinks/Week Comments No 0 [...] Sign Reading Time Taken Comments Blood Pressure 120/62 08/31/2023 9:10 AM CDT Pulse 61 08/31/2023 9:10 AM CDT Temperature 36.8 ??C (98.2 ??F) 08/31/2023 9:10 AM CD T Respiratory Rate 18 08/31/2023 9:10 AM CDT Oxygen Saturation 97% 08/31/2023 9:10 AM CDT Inhaled Oxygen Concentration - - Weight 74.4 kg (164 lb) 08/31/2023 9:10 AM CDT Height - - Body Mass Index 25.69 07/13/2023 9:37 AM CDT documented in this encounter Progress Notes * Wisam Little MD - 08/31/2023 9:51 AM CDT HEMATOLOGY / ONCOLOGY PROGRESS NOTE Patient Identification: Name: Richard Pringle Age: 77 y.o. 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 Patient completed last weekly Rituxan treatment on August 16, 2023. SUBJECTIVE Patient given to the office for follow-up visit after the completion of Rituxan therapy. He is feeling much stronger and more energetic. Denies any bleeding other than left upper extremity bruise after the IV site insertion. Denies any other new complaints. Review of system Constitutional: denies fevers, sweats, improvement in tiredness and fatigue, weight and appetite stable HEENT: denies sinus congestion, hearing or vision [...] 7.7 hemoglobin 13 platelet 196,000 neutrophils 60% [id number]% LDH 631 creatinine 1.0 calcium 8.0 total [...] 12 WBC 9.0 platelet 89,000 creatinine 1.2 Assessment: Plan: Patient Active Problem List Diagnosis [...] Rituxan treatment #5 on August 16, 2023. Clinically he is feeling much better. Labs showed significant improvement in hemoglobin now up to 12. He will continue folic acid once a day. Follow-up in 6 weeks. Hereditary hemochromatosis with H63D heterozygous state. He will continue to avoid iron supplement and blood transfusions. Upper respiratory infection. Resolved. TOBACCO COUNSELING He is not a tobacco/nicotine user. 08/31/2023 Wisam Little MD documented in this encounter Plan of Treatment Upcoming Encounters Date Type Department Care Team (Late st Contact Info) Description 03/29/2024 10:30 AM DUMPCART DRIVER Office Visit [facility] Oncology and Hematology - [place] [address] [place] [address] Wisam Little MD [address] [facility] [address] [place] [address] Scheduled Orders Name Type Priority Associated Diagnoses Orde r Schedule CBC WITH DIFFERENTIAL Lab Stat CLL (chronic lymphocytic leukemia) Expected: 10/08/2023, Expires: 08/30/2024 BASIC METABOLIC PANEL Lab Stat CLL (chronic lymphocytic leukemia) Expected: 10/08/2023, Expires: 08/30/2024 documented as of this encounter Visit Diagnoses Diagnosis CLL (chronic lymphocytic leukemia)- Primary Chronic lymphoid leukemia, without mention of having achieved remission documented in this encounter Care Teams Material Lister Relationship Specialty Start Date End Date Ryan Maloney DO [address] [place] [phone] PCP - General Family Practice 10/11/22 documented as of this encounter
--- OUTSIDE RECORDS SUMMARY | 2024-02-22 11:18 | XMS_ITS | Encounter Summary ---
Author Organization [facility] Address [address] [place] [address] Care Team Providers Care Linecasting Machine Keyboard Operator Name Role Phone Ryan Maloney Baylee ARELLANO Primary Care Provider + Encounter Details Date Type Department Care Team (Late st Contact Info) Description 08/16/2023 Orders Only [facility] Oncology and Hematology - [place] [address] [facility] [address] [place] [address] Wisam Little MD [address] [facility] [address] [place] [address] Social History Tobacco Use Types [...] st Contact Info) Description 03/29/2024 10:30 AM WASHER OPERATOR Office Visit [facility] Oncology and Hematology - [place] [address] [facility] [address] [place] [address] Wisam Little MD [address] [facility] [address] [place] [address] documented as of this encounter Procedures Procedure Name Priority Date/Time Associated Diagnosis Comments CBC WITH DIFFERENTIAL Routine 08/16/2023 11:53 AM CDT documented in this encounter Results * CBC WITH DIFFERENTIAL (08/16/2023 11:53 AM CDT) Blood Wisam Little MD HEMATOLOGY ORDERABLE S documented in this encounter Visit Diagnoses Not on filedocumented in this encounter Care Teams Linecasting Machine Keyboard Operator Relationship Specialty Start Date End Date Ryan Maloney DO [address] [place] [phone] PCP - General Family Practice 10/11/22 documented as of this encounter
--- OUTSIDE RECORDS SUMMARY | 2024-02-22 11:18 | XMS_ITS | Encounter Summary ---
Author Organization [facility] Address [address] [place] [address] Care Team Providers Care Rim Fire Charger Operator Name Role Phone Ryan Maloney Baylee ARELLANO Primary Care Provider + Encounter Details Date Type Department Care Team (Late st Contact Info) Description 08/17/2023 Orders Only [facility] Oncology and Hematology - [place] [address] [facility] [address] [place] [address] Wisam Little MD [address] [facility] [address] [place] [address] Social History Tobacco Use Types [...] Contact Info) Description 03/29/2024 10:30 AM SENIOR ELECTRICAL ENGINEER Office Visit [facility] Oncology and Hematology - [place] [address] [facility] [address] [place] [address] Wisam Little MD [address] [facility] [address] [place] [address] documented as of this encounter Procedures Procedure Name Priority Date/Time Associated Diagnosis Comments BASIC METABOLIC PANEL Routine 08/16/2023 1:16 PM CDT documented in this encounter Results * BASIC METABOLIC PANEL (08/16/2023 1:16 PM CDT) Blood Wisam Little MD CHEMISTRY ORDERABLES documented in this encounter Visit Diagnoses Not on filedocumented in this encounter Care Teams Rim Fire Charger Operator Relationship Specialty Start Date End Date Ryan Maloney DO [address] [place] [phone] PCP - General Family Practice 10/11/22 documented as of this encounter
--- OUTSIDE RECORDS SUMMARY | 2024-02-22 11:18 | XMS_ITS | Encounter Summary ---
Author Organization [facility]ITAL[facility] [employer] Address [address] [place] [address] Care Team Providers Care Nurse Tech Name Role Phone Ryan Maloney Baylee ARELLANO Primary Care Provider + Encounter Details Date Type Department Care Team (Late st Contact Info) Description 09/11/2023 Orders Only [facility] Oncology and Hematology - [place] [address] [facility] [address] [place] [address] Wisam Little MD [address] [facility] [address] [place] [address] Hemolytic anemia due to cold [...] st Contact Info) Description 03/29/2024 10:30 AM OVEN PRESS TENDER Office Visit [facility] Oncology and Hematology - [place] [address] [facility] [address] [place] [address] Wisam Little MD [address] [facility] [address] [place] [address] documented as of this encounter Visit Diagnoses Diagnosis 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
--- OUTSIDE RECORDS SUMMARY | 2024-02-22 11:19 | XMS_ITS | Encounter Summary ---
Author Organization [facility] Address [address] [place] [address] Care Team Providers Care Manager Commission Name Role Phone Ryan Maloney Primary Care Provider + Encounter Details Date Type Department Care Team (Late st Contact Info) Description 08/08/2023 External Device Data STL ABSTRACTION Provider, Abstract [...] st Contact Info) Description 03/29/2024 10:30 AM CERAMICS MACHINE OPERATOR Office Visit [facility] Oncology and Hematology - [place] [facility] [address] [place] [address] Wisam Little MD [address] [facility] [address] [place] [address] documented as of this encounter Visit Diagnoses Not on filedocumented in this encounter Care Teams Manager Commission Relationship Specialty Start Date End Date Ryan Maloney DO [address] [place] [phone] PCP - General Family Practice 10/11/22 documented as of this encounter
--- OUTSIDE RECORDS SUMMARY | 2024-02-22 11:19 | XMS_ITS | Encounter Summary ---
Author Organization [facility] Address [address] [place] [address] Care Team Providers Care Enterprise Architect Name Role Phone Ryan Maloney Baylee ARELLANO Primary Care Provider + Encounter Details Date Type Department Care Team (Late st Contact Info) Description 08/03/2023 Abstract [facility] Oncology and Hematology - [place] [address] [facility] [address] [place] [address] Wisam Little MD [address] [facility] [address] [place] [address] Social History Tobacco Use Types [...] st Contact Info) Description 03/29/2024 10:30 AM WIND FARM ELECTRICAL SYSTEMS DESIGNER Office Visit [facility] Oncology and Hematology - [place] [address] [facility] [address] [place] [address] Wisam Little MD [address] [facility] [address] [place] [address] documented as of this encounter Visit Diagnoses Not on filedocumented in this encounter Care Teams Enterprise Architect Relationship Specialty Start Date End Date Ryan Maloney DO [address] [place] [phone] PCP - General Family Practice 10/11/22 documented as of this encounter
--- OUTSIDE RECORDS SUMMARY | 2024-02-22 11:19 | XMS_ITS | Encounter Summary ---
Author Organization [facility] Address [address] [place] [address] Care Team Providers Care Corporate Development Intern Name Role Phone Ryan Maloney Baylee ARELLANO Primary Care Provider + Encounter Details Date Type Department Care Team (Late st Contact Info) Description 08/14/2023 Orders Only [facility] On[facility] Hematology - [place] [address] [facility] [address] [place] [address] Wisam Little MD [address] [facility] [address] [place] [address] Hemolytic anemia due to cold [...] st Contact Info) Description 03/29/2024 10:30 AM MEDICAL GENETICIST Office Visit [facility] Oncology and Hematology - [place] [address] [facility] [address] [place] [address] Wisam Little MD [address] [facility] [address] [place] [address] documented as of this encounter Visit Diagnoses Diagnosis 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
--- OUTSIDE RECORDS SUMMARY | 2024-02-22 11:19 | XMS_ITS | Encounter Summary ---
Author Organization [facility] Address [address] [place] [address] Care Team Providers Care Child Welfare Counselor Name Role Phone Ryan Maloney Baylee ARELLANO Primary Care Provider + Encounter Details Date Type Department Care Team (Late st Contact Info) Description 08/09/2023 Orders Only [facility] Oncology and Hematology - [place] [address] [facility] [address] [place] [address] Wisam Little MD [address] [facility] [place] [facility] [address] [place] [address] Social History Tobacco Use Types [...] st Contact Info) Description 03/29/2024 10:30 AM GALLERY OR MUSEUM CURATOR Office Visit [facility] Oncology and Hematology - [place] [address] [facility] [address] [place] [address] Wisam Little MD [address] [facility] [place] [facility] [address] [place] [phone] documented as of this encounter Procedures Procedure Name Priority Date/Time Associated Diagnosis Comments BASIC METABOLIC PANEL Routine 08/09/2023 3:37 PM CDT CBC WITH AUTODIFFERENTIAL Routine 2023 1:26 PM CDT documented in this encounter Results * BASIC METABOLIC PANEL (08/09/2023 3:37 PM CDT) Blood Wisam iLttle MD CHEMISTRY ORDERABLES * CBC WITH AUTODIFFERENTIAL (08/09/2023 1:26 PM CDT) Blood Wisam Little MD HEMATOLOGY ORDERABLE S documented in this encounter Visit Diagnoses Not on filedocumented in this encounter Care Teams Child Welfare Counselor Relationship Specialty Start Date End Date Ryan Maloney DO [facility] [place] [address] PCP - General Family Practice 10/11/22 documented as of this encounter
--- OUTSIDE RECORDS SUMMARY | 2024-02-22 11:19 | XMS_ITS | Encounter Summary ---
Author Organization [facility] [employer]ARTINMarcadia [employer] [facility] Address [address] [place] [address] Care Team Providers Care Catalog Specialist Name Role Phone Ryan Maloney Baylee ARELLANO Primary Care Provider + Reason for Visit * Reason Comments Follow Up Chemotherapy Encounter Details Date Type Department Care Team (Late st Contact Info) Description 08/09/2023 9:00 AM CDT Office Visit [facility] Oncology and Hematology - [place] [address] [place] [address] [address] [place] [address] Wisam Little MD [address] [facility] [address] [place] [address] Hemolytic anemia due to cold [...] Sign Reading Time Taken Comments Blood Pressure 137/68 08/09/2023 8:49 AM CDT Pulse 65 08/09/2023 8:49 AM CDT Temperature 36.8 ??C (98.2 ??F) 08/09/2023 8:49 AM CD T Respiratory Rate 18 08/09/2023 8:49 AM CDT Oxygen Saturation 97% 08/09/2023 8:49 AM CDT Inhaled Oxygen Concentration - - Weight 72.1 kg (159 lb) 08/09/2023 8:49 AM CDT Height - - Body Mass Index 24.9 07/13/2023 9:37 AM CDT documented in this encounter Progress Notes * Wisam Little MD - 08/09/2023 9:00 AM CDT HEMATOLOGY / ONCOLOGY PROGRESS NOTE Patient Identification: Name: Richard Pringle Age: 77 y.o. 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 SUBJECTIVE Patient came to the office for follow-up visit and week #3 of Rituxan. He has been tolerating Rituxan well. No bleeding and bruising. No chest pain or shortness of breath. No other new complaints. 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 Labs noted. Hemoglobin stable at 9.9 but the platelet count has dropped. Will proceed with treatment with Rituxan today and next week. Follow-up with me in 3 weeks with repeat labs. Hereditary hemochromatosis with H63D heterozygous state. Will continue to avoid iron supplement andblood transfusions. Upper respiratory infection/pneumonia. Resolved. Next Rituxan treatment in 1 week. Follow-up in 3 weeks. TOBACCO COUNSELING He is not a tobacco/nicotine user. 08/09/2023 Wisam Little MD documented in this encounter Plan of Treatment Upcoming Encounters Date Type Department Care Team (Late st Contact Info) Description 03/29/2024 10:30 AM SUPERVISOR CUSTOMER COMPLAINT SERVICE Office Visit [facility] Oncology and Hematology - [place] [address] [place] [address] Wisam Little MD [address] 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
--- OUTSIDE RECORDS SUMMARY | 2024-02-22 11:19 | XMS_ITS | Encounter Summary ---
Author Organization [facility] Address [address] [place] [address] Care Team Providers Care Forestry Scientist Name Role Phone Ryan Maloney Primary Care [...] st Contact Info) Description 03/29/2024 10:30 AM MULTIPLE SCLEROSIS NURSE Office Visit [facility] Oncology and Hematology - [place] [address] [facility] [address] [place] [address] Wisam Little MD [address] [facility] [address] [place] [address] documented as of this encounter Visit Diagnoses Not on filedocumented in this encounter Care Teams Forestry Scientist Relationship Specialty Start Date End Date Ryan Maloney DO [address] [place] [phone] PCP - General Family Practice 10/11/22 documented as of this encounter
--- OUTSIDE RECORDS SUMMARY | 2024-02-22 11:20 | XMS_ITS | Encounter Summary ---
Author Organization [facility] [employer]IN[employer] [facility] Address [address] [place] [address] Care Team Providers Care Oil Well Service Operator Helper Name Role Phone Ryan Maloney Baylee ARELLANO Primary Care Provider + Reason for Visit * Reason Comments Follow Up Encounter Details Date Type Department Care Team (Late st Contact Info) Description 07/28/2023 9:15 AM CDT Office Visit [facility] Oncology and Hematology [place] [address] [place] [address] [address] [place] [address] Wisam Little MD [address] [facility] [address] [place] [address] Hemolytic anemia due to cold [...] Sign Reading Time Taken Comments Blood Pressure 118/60 07/28/2023 9:04 AM CDT Pulse 58 07/28/2023 9:04 AM CDT Temperature 36.3 ??C (97.4 ??F) 07/28/2023 9:04 AM CD T Respiratory Rate 14 07/28/2023 9:04 AM CDT Oxygen Saturation 98% 07/28/2023 9:04 AM CDT Inhaled Oxygen Concentration - - Weight 73.9 kg (163 lb) 07/28/2023 9:04 AM CDT Height - - Body Mass Index 25.53 07/13/2023 9:37 AM CDT documented in this encounter Progress Notes * Wisam Little MD - 07/28/2023 9:47 AM CDT HEMATOLOGY / ONCOLOGY PROGRESS NOTE Patient Identification: Name: Richard Pringle Age: 77 y.o. 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 He received week #2 of Rituxan on July 25 and tolerated it well. He is feeling much better and more energetic. No bleeding and bruising. No other new complaints. Review of system Constitutional: denies fevers, sweats, improvement in tiredness and fatigue HEENT: denies sinus congestion, [...] No lymphadenopathy Neuro: No obvious focal deficit exam as above PATH LABS Labs from December 11, 2018 showed WBC 7.7 hemoglobin 13 platelet 196,000 neutrophils 60% [id number]% LDH 631 creatinine 1.0 calcium 8.0 total [...] 9.7 platelet 108,000 MCV 100.4 creatinine 1.2 @IMAGEIMP@ Assessment: Plan: Patient Active Problem List Diagnosis [...] hemolytic anemia with coronary agglutinin disease. Labs showed stable hemoglobin of 9.7. He is clinically feeling stronger. He will continue weekly Rituxan treatment. So far he has received 2 treatments. Follow- up in 2 weeks. Continue folic acid. Hereditary hemochromatosis with H63D heterozygous state. We will continue to avoid iron supplement and blood transfusions. Upper respiratory infection/pneumonia. Resolved. Follow-up in 2 weeks. TOBACCO COUNSELING He is not a tobacco/nicotine user. 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
--- OUTSIDE RECORDS SUMMARY | 2024-02-22 11:20 | XMS_ITS | Encounter Summary ---
Author Organization [facility] Address [address] [facility] Attn: Epic Prelude ADT [place] [address] Care Team Providers Care Lapping Machine Set Up Operator Name Role Phone Ryan Maloney DO Primary Care Provider + Encounter Details Date Type Department Care Team (Latest Contact Info) Description 07/12/2023 Travel Social History Tobacco Use Types Packs/Day [...] st Contact Info) Description 03/29/2024 10:30 AM FABRICATION AND ASSEMBLY SUPERVISOR Office Visit [facility] Oncology and Hematology - [place] [address] [facility] [address] [place] [address] Wisam Little MD [address] [facility] [address] [place] [address] documented as of this encounter Visit Diagnoses Not on filedocumented in this encounter Additional Health Concerns Infection Onset Date Last Indicated Resolved Time Human Metapneumovirus Comment:Added from external infection. Source: [facility]. 07/08/2023 07/08/2023 07/11/2023 07/18/2023 1:16 AM C DT documented as of this encounter Care Teams Lapping Machine Set Up Operator Relationship Specialty Start Date End Date Ryan Maloney DO [address] [place] [phone] PCP - General Family Practice 10/11/22 documented as of this encounter
--- OUTSIDE RECORDS SUMMARY | 2024-02-22 11:20 | XMS_ITS | Encounter Summary ---
Author Organization [facility] Address [address] [place] [address] Care Team Providers Care Tree And Shrub Worker Name Role Phone Ryan Maloney Baylee ARELLANO Primary Care Provider + Reason for Visit * Reason Comments Follow Up Encounter Details Date Type Department Care Team (Late st Contact Info) Description 07/13/2023 9:30 AM CDT Office Visit [facility] Oncology and Hematology - [place] [address] [place] [address] [address] [place] [address] Wisam Little MD [address] [facility] [address] [place] [address] Hemolytic anemia due to cold [...] Sign Reading Time Taken Comments Blood Pressure 142/72 07/13/2023 9:41 AM CDT Pulse 70 07/13/2023 9:37 AM CDT Temperature 36.9 ??C (98.4 ??F) 07/13/2023 9:37 AM CD T Respiratory Rate 19 07/13/2023 9:37 AM CDT Oxygen Saturation 96% 07/13/2023 9:37 AM CDT Inhaled Oxygen Concentration - - Weight 78.9 kg (174 lb) 07/13/2023 9:37 AM CDT Height 170.2 cm (5' 7 ) 07/13/2023 9:37 AM CDT Body Mass Index 27.25 07/13/2023 9:37 AM CDT documented in this encounter Progress Notes * Wisam Little MD - 07/13/2023 12:13 PM CDT HEMATOLOGY / ONCOLOGY PROGRESS NOTE Patient Identification: Name: Richard Pringle Age: 77 y.o. 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 He remains quite tired and fatigued. Denies any bleeding and bruising. No other new complaints. 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 Events noted. Patient was admitted [facility] with autoimmune hemolytic anemia and received IV Rituxan on July 13. He was discharged home yesterday. He remains quite tired and fatigued. He did not receive blood transfusion due to iron overload. I will continue weekly Rituxan for 3 more treatment in my office and see him back in 2weeks. Continue folic acid. Hereditary hemochromatosis with H63D heterozygous state. Will avoid iron supplement and blood transfusion. Upper respiratory infection/pneumonia. He is on antibiotic and will finish the course in few days. Follow-up in 2 weeks. TOBACCO COUNSELING He is not a tobacco/nicotine user. 07/13/2023 Wisam Little MD documented in this encounter Plan of Treatment Upcoming Encounters Date Type Department Care Team (Late st Contact Info) Description 03/29/2024 10:30 AM MANAGER UNIVERSITY Office Visit [facility] On[facility] Sin [address] [facility] [address] [place] [address] Wisam Little MD [address] 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 Source: [facility] - [facility]. 07/08/2023 07/08/2023 07/11/2023 07/18/2023 1:16 AM C DT documented as of this encounter Care Teams Tree And Shrub Worker Relationship Specialty Start Date End Date Ryan Maloney DO [address] [place] [phone] PCP - General Family Practice 10/11/22 documented as of this encounter
--- OUTSIDE RECORDS SUMMARY | 2024-02-22 11:20 | XMS_ITS | Encounter Summary ---
Author Organization [facility] Address [address] [place] [address] Care Team Providers Care Drupal Web Developer Name Role Phone Ryan Maloney Baylee ARELLANO Primary Care Provider + Encounter Details Date Type Department Care Team (Late st Contact Info) Description 07/27/2023 Orders Only [facility] Oncology and Hematology - Sin [address] [facility] [address] [place] [address] Wisam Little MD [address] [facility] [address] [place] [address] Social History Tobacco Use Types [...] st Contact Info) Description 03/29/2024 10:30 AM THERMAL CUTTER HELPER Office Visit [facility] Oncology and Hematology - Sin [address] [facility] [address] [place] [address] Wisam Little MD [address] [facility] [address] [place] [address] documented as of this encounter Procedures Procedure Name Priority Date/Time Associated Diagnosis Comments CBC WITH DIFFERENTIAL Routine 07/26/2023 4:15 PM CDT COMPREHENSIVE METABOLIC PANEL Routine 07/26/2023 4:09 PM CDT documented in this encounter Results * CBC WITH DIFFERENTIAL (07/26/2023 4:15 PM CDT) Blood Wisam Little MD HEMATOLOGY ORDERABLE S * COMPREHENSIVE METABOLIC PANEL (07/26/2023 4:09 PM CDT) Blood Wisam Little MD CHEMISTRY ORDERABLES documented in this encounter Visit Diagnoses Not on filedocumented in this encounter Care Teams Drupal Web Developer Relationship Specialty Start Date End Date Ryan Maloney DO [address] [place] [phone] PCP - General Family Practice 10/11/22 documented as of this encounter
--- OUTSIDE RECORDS SUMMARY | 2024-02-22 11:20 | XMS_ITS | Encounter Summary ---
Author Organization [email or web address] Address [address] [place] [address] Care Team Providers Care Steaming Cabinet Tender Name Role Phone Ryan Maloney Baylee ARELLANO Primary Care Provider + Reason for Visit * Reason Onset Date Comments Survivorship 07/12/2023 Encounter Details Date Type Department Care Team (Late st Contact Info) Description 07/12/2023 Telephone [facility] Oncology and Hematology - Sin [address] [place] [address] [facility] [address] [place] [address] Wisam Little MD [address] [facility] [address] [place] [address] Survivorship Social History Tobacco Use Types Packs/Day Years [...] on file documented as of this encounter Miscellaneous Notes * Telephone Encounter - IceBella sanchez - 07/12/2023 2:41 PM CDT Lucy called to inform us that cristina was being discharged from [facility] today and that he wouldneed dr little to put in orders for rituxin over here at [place] and that he received his first dose inpatient on Monday07/10/23. I called patient and spoke with him and put him on doctors schedulefor tomorrow morning to get the process started so he can get tx over here. documented in this encounter Plan of Treatment Upcoming Encounters Date Type Department Care Team (Late st Contact Info) Description 03/29/2024 10:30 AM PROFESSOR OF VISUAL ARTS Office Visit [facility] Oncology and Hematology [facility] [address] [facility] [address] [place] [address] Wisam Little MD [address] [facility] [address] [place] [address] documented as of this encounter Visit Diagnoses Not on filedocumented in this encounter Additional Health Concerns Infection Onset Date Last Indicated Resolved Time Human Metapneumovirus Comment:Added from external infection. Source: [facility] - [facility]. 07/08/2023 07/08/2023 07/11/2023 07/18/2023 1:16 AM C DT documented as of this encounter Care Teams Steaming Cabinet Tender Relationship Specialty Start Date End Date Ryan Maloney DO [facility] [place] [phone] PCP - General Family Practice 10/11/22 documented as of this encounter
--- OUTSIDE RECORDS SUMMARY | 2024-02-22 11:20 | XMS_ITS | Encounter Summary ---
Author Organization [facility] Address [address] [place] [address] Care Team Providers Care Ssn/Ssbn Assistant Navigator Name Role Phone Ryan Maloney Primary Care Provider + Reason for Visit * Auth/Cert (Routine) Specialty Diagnoses / Procedures Referred By Contac t Referred To Contact Oncology Diagnoses Anemia Charlene Varghese MD NO ADDRESS ON FILE [facility] Oncology [address] [place] [phone] Referral ID Status Reason Start Date Expiration Date Visits Re quested Visits Authorized [id number] 1 1 Encounter Details Date Type Department Care Team (Latest Contact Info) Description 07/09/2023 7:10 PM CDT - 07/12/2023 2:15 PM CDT Hospital Encounter [facility] Oncology [address] [place] [phone] Charlene Varghese MD NO ADDRESS ON FILE Tamica Bah MD [address] [facility] [id number] [address] Marilyn Macario MD [address] [place] [address] Acute hemolytic anemia Discharge Disposition: Home or Self Care Social History Tobacco Use Types Packs/Day [...] Sign Reading Time Taken Comments Blood Pressure 148/76 07/12/2023 7:57 AM CDT Pulse 81 07/12/2023 7:57 AM CDT Temperature 36.1 ??C (97 ??F) 07/12/2023 7:57 AM CDT Respiratory Rate 18 07/12/2023 7:57 AM CDT Oxygen Saturation 98% 07/12/2023 7:57 AM CDT Inhaled Oxygen Concentration - - Weight 75.8 kg (167 lb 1.6 oz) 07/10/2023 1:16 P M CDT Height 170.2 cm (5' 7 ) 07/10/2023 1:16 PM CDT Body Mass Index 26.17 07/10/2023 1:16 PM CDT documented in this encounter Discharge Summaries * Marilyn Macario MD - 07/12/2023 8:12 AM CDT [facility] Adult Hospitalist Discharge Summary Richard Pringle 77 y.o. male 1945 CSN: [id number] Date of Admission: 07/09/2023 Date of Discharge: 07/12/2023 Discharging Physician: Marilyn Macario MD LOS: 3 days PCP: Ryan Maloney DO Activity: activity as tolerated. Dispo: home Diet: No diet orders on file Code Status at Discharge: Prior Wound Care: None needed Admitting Dx: <principal problem not specified> Discharge Diagnoses: Active Hospital Problems Diagnosis Cold agglutinin disease Acute hemolytic anemia Pneumonia of both lungs due to infectious organism Resolved Hospital Problems No resolved problems to display. Discharge medications and new prescriptions: Medication List START taking these medications levoFLOXacin 750 mg tablet Commonly known as: LEVAQUIN Take 1 Tablet (750 mg) by mouth daily for 2 days. Signed by: Dr. Leslie Macario Quantity: 2 Tablet Refills: 0 CONTINUE taking these medications CALCIUM 300 ORAL Take by mouth. Refills: 0 CINNAMON ORAL Take by mouth. Refills: 0 famotidine 20 mg tablet Commonly known as: PEPCID Refills: 0 Fluzone High-Dose (PF) 180 mcg/0.5 mL Syringe syringe ADM 0.5ML IM UTD Refills: 0 Generic drug: flu vaccine trivalent (65 yr+)(PF) magnesium oxide 250 mg magnesium Tablet Take 250 mg by mouth daily. Refills: 0 Move Free [facility] 750 mg-100 mg- 1.65 mg-108 mg Tablet Take 1 Tablet by mouth daily. Refills: 0 Generic drug: gxsjslfg-jqycg-uesjw-CF borate SALMON OIL-1000 ORAL Take 1 Capsule by mouth daily. Refills: 0 vitamin B complex-vitamin G-whnb-EE-minerals 500 mg-400 mcg- 23.9 mg-3 mg Tablet Commonly known as: AKCOARTVTWIU-RZFF-NMCOVI Take 1 Tablet by mouth. Refills: 0 Vitamin D3 25 mcg (1,000 unit) Capsule Take 1,000 Units by mouth daily. Refills: 0 Generic drug: cholecalciferol (Vitamin D3) ZINC-15 ORAL Take 1 Tablet by mouth. Refills: 0 Where to Get Your Medications These medications were sent to [address] [facility] [address] Hours: Open Daily 8 am - 12 am (midnight) levoFLOXacin 750 mg tablet Consultants: IP CONSULT TO HEMATOLOGY/ONCOLOGY Discharge Lab Data: Lab Results Component Value Date WBC 21.0 (H) 07/12/2023 HGB 7.2 (L) 07/12/2023 HCT 21.0 (L) 07/12/2023 PLT 311 07/12/2023 NA 138 07/12/2023 CL 107 07/12/2023 K 4.4 07/12/2023 CO2 21 (L) 07/12/2023 BUN 17 07/12/2023 CREAT 0.89 07/12/2023 GLUCOSE 142 (H) 07/12/2023 CRP 117.4 (H) 07/09/2023 Discharge Exam: BP (!) 148/76 (BP Location: Left arm, Patient Position (BP): Supine) Pulse 81 Temp 97 ??F (36.1??C) (Axillary) Resp 18 Ht 5' 7 (1.702 m) Wt 75.8 kg (167 lb 1.6 oz) SpO2 98% BMI 26.17 kg/m?? Physical Exam: General appearance alert, cooperative, no distress, appears stated age Lungs clear to auscultation bilaterally Heart regular rate and rhythm, S1, S2 normal, no murmur, click, rub or gallop Abdomen soft, non-tender. Bowel sounds normal. No masses, No organomegaly Extremities extremities normal, atraumatic, no cyanosis or edema Skin Skin color, texture, turgor normal. No rashes or lesions Hospital Course: 77 yo male with Hx [...] . Fe studies ordered Hx of CLL Nutritional status and in-house recommendations: Current Diet and/or Nutritional Supplementation ordered: No diet orders on file Discharge Condition: improving. Follow-up: Luchtefeld, Ryan P, DO in 5 days. More than 45 minutes were spent in this discharge activity. Signed: Marilyn Macario MD 07/13/2023, 8:13 AM documented in this encounter Medications at Time of Discharge Medication Sig Dispensed Refills Start Date End Date famotidine (PEPCID) 20 mg tablet 09/17/2021 vitamin B complex-vitamin E-rwly-HX-minerals (EWHEAXKSJQHC-TIDB-WNQRU S) 500 mg-400 mcg- 23.9 mg-3 mg Tablet Take 1 Tablet by mouth. salmon oil/omega-3 fatty acids (SALMON OIL-1000 ORAL) Take 1 Capsule by mouth daily. cholecalciferol, Vitamin D3, (Vitamin D3) 25 mcg (1,000 unit) Capsule Take 1,000 Units by mouth daily. zinc sulfate (ZINC-15 ORAL) Take 1 Tablet by mouth. magnesium oxide 250 mg magnesium Tablet Take 250 mg by mouth daily. gvcdhnla-mugni-eryrt-CF borate (Move Free [facility]) 750 mg-100 mg- 1.65 mg-108 mg Tablet Take 1 Tablet by mouth daily. FLUZONE HIGH-DOSE 2017-, PF, 180 mcg/0.5 mL Syringe syringe ADM 0.5ML IM UTD 0 11/30/2017 calcium carbonate (CALCIUM 300 ORAL) Take by mouth. cinnamon bark (CINNAMON ORAL) Take by mouth. levoFLOXacin (LEVAQUIN) 750 mg tablet Take 1 Tablet (750 mg) by mouth daily for 2 days. 2 Tablet 07/12/2023 07/14/2023 documented as of this encounter Progress Notes * Elissa Guerrier RN - 07/12/2023 9:10 AM CDT Richard is alert and oriented x 4, he is up ad wiley in room, ate 100% if breakfast without difficulty, on room air, no sob or complaints or pain, voids freely, last bm this am, no open skin or areas noted, first Rituxan was given and tolerated well yesterday per pt; states he is following up for first outpt of Rituxan in 3 weeks. No other questions or concerns Spoke to dr jacqueline barboza about discharge/ initially stating to send discharge scripts to home pharmacy however now asking that they be sent to our [facility] (message sent) - no other questions or concerns [id number] spoke to protective services case worker; she is arranging Rituxan f/u for 3 weeks; they will call pt with this follow up information * Lucía Ricketts MD - 07/12/2023 7:42 AM CDT Hem/Onc Progress Note Admit Date: 07/09/2023 Date of Note: 07/12/2023, 7:43 AM PCP: Ryan Maloney DO LOS: 3 days Previous history of present illness, review of systems, medications, labs, studies, notes, orders and consults have been reviewed today. Subjective: He feels okay, tolerated Rituxan well, denies shortness of breath, chest pain. He is hoping to go home soon. ROS: I reviewed a 13 point review of systems and pertinent findings are documented above. Objective: BP 130/77 Pulse 71 Temp 98 ??F (36.7 ??C) (Oral) Resp 16 Ht 5' 7 (1.702 m) Wt 75.8 kg (167 lb 1.6 oz) SpO2 97% BMI 26.17 kg/m?? Exam: General appearance alert, cooperative, no distress, appears stated age; off oxygen+ Neck Supple, no cervical LN palpable Lungs clear to auscultation bilaterally Heart regular rate and rhythm, S1, S2 normal, no murmur, click, rub or gallop Abdomen soft, non-tender, bowel sounds normal, no masses, no organomegaly Extremities extremities normal, atraumatic, no cyanosis or edema Pulses 2+ and symmetric Skin No rashes or ulcers. MEDICAL FIELD REPRESENTATIVE AAO*3, grossly non-focal. Data Base: I have reviewed all labs and diagnostic database. Lab Results Component Value Date/Time WBC 21.0 (H) 07/12/2023 02:17 AM HGB 7.2 (L) 07/12/2023 02:17 AM HCT 21.0 (L) 07/12/2023 02:17 AM PLT 311 07/12/2023 02:17 AM MCV 96.8 07/12/2023 02:17 AM Lab Results Component Value Date/Time NA 138 07/12/2023 02:17 AM K 4.4 07/12/2023 02:17 AM CL 107 07/12/2023 02:17 AM CO2 21 (L) 07/12/2023 02:17 AM CA 9.0 07/12/2023 02:17 AM BUN 17 07/12/2023 02:17 AM CREAT 0.89 07/12/2023 02:17 AM GLUCOSE 142 (H) 07/12/2023 02:17 AM ANIONGAP 10 07/12/2023 02:17 AM Haptoglobin - <10 B12 - 762, folic acid 19. Arpan - positive for C3 and poly Ag, negative for IgG. 07/07/23 - (at [facility]): CT C/A/P: Findings compatible with bilateral multifocal pneumonia; findings most pronounced in the right upper and lower lobes. Pattern suggests atypical/viral pneumonia. Mild splenomegaly. Possible partial nephrectomy versus ablation of the inferior pole of the left kidney. 0.3 cm nonobstructing left renal calculus. Coarse calcifications in mediastinal and bilateral hilar lymph nodes; this can be seen with antecedent granulomatous disease as well as posttreatment lymphoma.Benign calcified pulmonary granulomata and granulomata in the hepatic/splenic parenchyma as evidence for antecedent granulomatous disease. 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 Would transfuse judiciously to avoid iron overload. Typically cold agglutinindisease is mediated by complement and does not respond well to steroids. He may need plasmapheresisif it is severe. Other treatment options would be single agent rituximab or Bendamustine/rituxan considering underlying CLL, sutimlimab which will help reduce the hemolysis but does not treat the underlying cold agglutinin disease. Will monitor his labs closely and plan to initiate treatment with rituxan. Hb is stable at 7.2 g without transfusion, will hold off PRBC. (07/10/23- I have contacted Dr. Little and he is in agreement with starting him on single agent rituximab). (07/11/23 - Discussed to potential side effects of Rituxan, he signed the consent and it will be scanned into his chart. Will proceed with a dose of Rituxan today and monitor response. Explained that single agent Rituxan alone should be safe in people who are being treated for an infection as he hashad at least 3 doses of antibiotics and is clinically much improved) 07/12/23 - Got a dose of Rituximab on 07/11/23. Hb is stable at 7.2 g. CLL: stage 0, has been monitored without treatment. 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 Okay to d/c him if stable otherwise and he will follow up with Dr. Little to continue weekly Rituxan as outpatient. Lucía Ricketts MD * Marilyn Macario MD - 07/11/2023 11:38 AM CDT [facility] Adult Hospitalist Progress Note Admit Date: 07/09/2023 Date of Note: 07/11/2023, 11:38 AM LOS: 2 days Previous history of present illness and review of systems have been reviewed today as documented inthe H&P on 07/09/2023; medications, labs, studies, notes, orders and consults have been reviewed. I have reviewed the notes from admission. Subjective: Pt is seen and examined this morning. Not in acute distress. Will start rituximab today. Objective: BP 131/67 Pulse 70 Temp 98 ??F (36.7 ??C) (Oral) Resp 14 Ht 5' 7 (1.702 m) Wt 75.8 kg (167 lb 1.6 oz) SpO2 99% BMI 26.17 kg/m?? Temp (24hrs), Av.8 ??F (36.6 ??C), Min:97.6 ??F (36.4 ??C), Max:98 ??F (36.7 ??C) Exam: General: Alert, mild distress. Heart: Regular rate and rhythm, S1, S2 normal, no murmur, click, rub or gallop. Lungs: Crackles bilaterally Abdomen: Soft, non-tender. Bowel sounds times four. No masses, No organomegaly. Extremities: No clubbing, cyanosis or edema Skin: Skin color, texture, turgor normal. No rashes or lesions. Warm and dry. Head: Normocephalic, atraumatic Neck: Supple, symmetrical, trachea midline, no adenopathy. Neuro: CNII-XII intact. Normal strength, sensation and reflexes throughout. Data Base: I have reviewed all new labs and studies resulted and pertinent ones are noted below Assessment/Plan of Actively Managed Problems Active Problems: Acute hemolytic anemia Pneumonia of both lungs due to infectious organism Cold agglutinin disease Acute anemiadue to hemolytic . Hx of hemolytic anemia cold agglutinins . LDH was elevated . Dr Ricketts is following, triel of Prednisone 1mg/kg daily- starting 07/09, transfuse PRBCs only if Hb drops to 6 or below ( as hx of hemochromatosis ) Will start rituximab today. PNA- suspect gram positive . Multyifocal. Start pneumonia pathway , Rocephin/Azithro Check pneumonia pathogen if sample is available. Hx of Hemochromatosis /Iron Overload- unable to do phlebotomies sec to hemolytic anemia . Fe studies ordered Hx of CLL Nutrition: Current Diet and/or Nutritional Supplementation ordered: DIET GENERAL Effective Now DVT Prophylaxis - sequential compression devices Jaimes catheter:absent Lines: Peripheral IV PT POC OT POC Therapy Plan of Care: D/C OT (07/11/23 5421) Activity Order: Present Activity: up in bathroom (07/11/23 0616) Current Code Status -Full Code Plan discussed with patient, questions answered. Current Planned Disposition - following CBC, following clinical course. Total time spent: 40 minutes are spent today in care of this patient which includes but not limitedto face to face patient care, review of medical history and labs imaging etc, discussing with the family members, discussing with consultants and multidisciplinary rounds. More than 50% time spent in counseling and coordination of care. Marilyn Macario MD Office: [phone] On-call hospitalist pager: [phone] * Aliyah Denis GN - 07/11/2023 7:47 AM CDT Pt aox4. Family at bedside. No c/o pain. Ambulates independently. No BM this shift. IV infiltrated this shift. Unsuccessful attempt. Call light and belongings in reach. * Lucía Ricketts MD - 07/11/2023 7:43 AM CDT Hem/Onc Progress Note Admit Date: 07/09/2023 Date of Note: 07/11/2023, 7:43 AM PCP: Ryan Maloney DO LOS: 2 days Previous history of present illness, review of systems, medications, labs, studies, notes, orders and consults have been reviewed today. Subjective: He feels okay, denies shortness of breath, chest pain. ROS: I reviewed a 13 point review of systems and pertinent findings are documented above. Objective: BP 139/57 (BP Location: Right arm, Patient Position (BP): Sitting) Pulse 96 Temp 97.8 ??F (36.6??C) (Oral) Resp 18 Ht 5' 7 (1.702 m) Wt 75.8 kg (167 lb 1.6 oz) SpO2 99% BMI 26.17 kg/m?? Exam: General appearance alert, cooperative, no distress, appears stated age; off oxygen+ Neck Supple, no cervical LN palpable Lungs clear to auscultation bilaterally Heart regular rate and rhythm, S1, S2 normal, no murmur, click, rub or gallop Abdomen soft, non-tender, bowel sounds normal, no masses, no organomegaly Extremities extremities normal, atraumatic, no cyanosis or edema Pulses 2+ and symmetric Skin No rashes or ulcers. MEDICAL FIELD REPRESENTATIVE AAO*3, grossly non-focal. Data Base: I have reviewed all labs and diagnostic database. Lab Results Component Value Date/Time WBC 22.6 (H) 07/11/2023 05:49 AM HGB 7.2 (L) 07/11/2023 05:49 AM HCT 20.8 (L) 07/11/2023 05:49 AM PLT 251 07/11/2023 05:49 AM MCV 96.3 07/11/2023 05:49 AM Lab Results Component Value Date/Time NA 142 07/11/2023 05:49 AM K 4.3 07/11/2023 05:49 AM CL 108 (H) 07/11/2023 05:49 AM CO2 26 07/11/2023 05:49 AM CA 8.8 07/11/2023 05:49 AM BUN 16 07/11/2023 05:49 AM CREAT 0.96 07/11/2023 05:49 AM GLUCOSE 94 07/11/2023 05:49 AM ANIONGAP 8 07/11/2023 05:49 AM Haptoglobin - <10 B12 - 762, folic acid 19. Arpan - positive for C3 and poly Ag, negative for IgG. 07/07/23 - (at [facility]): CT C/A/P: Findings compatible with bilateral multifocal pneumonia; findings most pronounced in the right upper and lower lobes. Pattern suggests atypical/viral pneumonia. Mild splenomegaly. Possible partial nephrectomy versus ablation of the inferior pole of the left kidney. 0.3 cm nonobstructing left renal calculus. Coarse calcifications in mediastinal and bilateral hilar lymph nodes; this can be seen with antecedent granulomatous disease as well as posttreatment lymphoma.Benign calcified pulmonary granulomata and granulomata in the hepatic/splenic parenchyma as evidence for antecedent granulomatous disease. 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 Would transfuse judiciously to avoid iron overload. Typically cold agglutinindisease is mediated by complement and does not respond well to steroids. He may need plasmapheresisif it is severe. Other treatment options would be single agent rituximab or Bendamustine/rituxan considering underlying CLL, sutimlimab which will help reduce the hemolysis but does not treat the underlying cold agglutinin disease. Will monitor his labs closely and plan to initiate treatment with rituxan. Hb is stable at 7.2 g without transfusion, will hold off PRBC. (07/10/23- I have contacted Dr. Little and he is in agreement with starting him on single agent rituximab(. Discussed to potential side effects of Rituxan, he signed the consent and it will be scanned into his chart. Will proceed with a dose of Rituxan today and monitor response. Explained that single agent Rituxan alone should be safe in people who are being treated for an infection as he has had at least 3 doses of antibiotics and is clinically much improved CLL: stage 0, has been monitored without treatment. 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 Would continue current supportive care, will follow. He may be ready for d/c in am if stable otherwise. Lucía Ricketts MD * Marilyn Macario MD - 07/10/2023 1:14 PM CDT [facility] Adult Hospitalist Progress Note Admit Date: 07/09/2023 Date of Note: 07/10/2023, 1:14 PM LOS: 1 day Previous history of present illness and review of systems have been reviewed today as documented inthe H&P on 07/09/2023; medications, labs, studies, notes, orders and consults have been reviewed. I have reviewed the notes from admission. Subjective: Pt is seen and examined this morning. Resting in bed. Not in acute distress. Denies SOB. Some coughs HGB 6.8. Objective: BP 112/66 (BP Location: Left arm, Patient Position (BP): Supine) Pulse 69 Temp 97.6 ??F (36.4 ??C) (Oral) Resp 16 SpO2 97% Temp (24hrs), Av.1 ??F (36.7 ??C), Min:97.6 ??F (36.4 ??C), Max:98.3 ??F (36.8 ??C) Exam: General: Alert, mild distress. Heart: Regular rate and rhythm, S1, S2 normal, no murmur, click, rub or gallop. Lungs: Crackles bilaterally Abdomen: Soft, non-tender. Bowel sounds times four. No masses, No organomegaly. Extremities: No clubbing, cyanosis or edema Skin: Skin color, texture, turgor normal. No rashes or lesions. Warm and dry. Head: Normocephalic, atraumatic Neck: Supple, symmetrical, trachea midline, no adenopathy. Neuro: CNII-XII intact. Normal strength, sensation and reflexes throughout. Data Base: I have reviewed all new labs and studies resulted and pertinent ones are noted below Assessment/Plan of Actively Managed Problems Active Problems: Acute hemolytic anemia Pneumonia of both lungs due to infectious organism Cold agglutinin disease Acute anemia- hemolytic . Hx of hemolytic anemia cold agglutinins . LDH was elevated . Dr Ricketts is following, triel of Prednisone 1mg/kg daily- starting 07/09, transfuse PRBCs only if Hb drops to 6 or below ( as hx of hemochromatosis ) monitor counts PNA- suspect gram positive . Multyifocal. Start pneumonia pathway , Rocephin/Azithro , monitor reststatus . Hx of Hemochromatosis /Iron Overload- unable to do phlebotomies sec to hemolytic anemia . Fe studies ordered Hx of CLL Nutrition: Current Diet and/or Nutritional Supplementation ordered: DIET GENERAL Effective Now DVT Prophylaxis - sequential compression devices Jaimes catheter:absent Lines: Peripheral IV PT POC OT POC Activity Order: Present Activity: in bed (07/10/23 1146) Current Code Status -Full Code Plan discussed with patient, questions answered. Current Planned Disposition - following CBC, following clinical course. Total time spent: 50 minutes are spent today in care of this patient which includes but not limitedto face to face patient care, review of medical history and labs imaging etc, discussing with the family members, discussing with consultants and multidisciplinary rounds. More than 50% time spent in counseling and coordination of care. Marilyn Macario MD Office: [phone] On-call hospitalist pager: [phone] documented in this encounter H&P Notes * Tamica Guevara MD - 07/09/2023 7:57 PM CDT [facility] Hospitalist Admission H & P Patient Name: Richard Pringle Primary Care Doctor: Ryan Maloney DO Date of Admission: 07/09/2023 Date of Service: 07/09/2023 Chief Complaint: direct admit from OSH HPI: 77 yo male with Hx of CLL, Autoimmune hemolytic anemia . Hemochromatosis , GERD. Presented to OSH on 06/27/23 with c/c fevers/cough/chills, CT c/a/p done - multifocal PNA, treated with Rocephin and Azithro , required 2 L NC for acute resp failure, now on RA with O2 sats 96%. . Today his Hb count dropped from 7.9 to 6.7 and pt being transferred to [facility] to see heme/onc consult because of his hx of hemolytic anemia . LDH was 487 today . Hb trend - 03/2023- was 10 , 07/06- was 8.3, 07/07- was 7.9, 07/08-6.7 . Pt reports CASTRO , while in bed - no CP , no SOB . Cough is ongoing . No blood in stools, no black stools. Past Medical History: Past Medical History: Diagnosis Date GERD (gastroesophageal reflux disease) Nutritional anemia, unspecified Past Surgical History: Past Surgical History: Procedure Laterality Date HX BLADDER SURGERY HX GALLBLADDER SURGERY HX KNEE ARTHROSCOPY MOHS SURGERY,HEAD,NECK,HAND,FEET OR GENITAL Current Medications: Medications Prior to Admission Medication Sig Dispense Refill Last Dose famotidine (PEPCID) 20 mg tablet vitamin B complex-vitamin B-dbef-OA-minerals (ERAOBLKINGZN-UDOV-KJDGEO) 500 mg- 400 mcg- 23.9 mg-3 mg Tablet Take 1 Tablet by mouth. salmon oil/omega-3 fatty acids (SALMON OIL-1000 ORAL) Take 1 Capsule by mouth daily. cholecalciferol, Vitamin D3, (Vitamin D3) 25 mcg (1,000 unit) Capsule Take 1,000 Units by mouth daily. zinc sulfate (ZINC-15 ORAL) Take 1 Tablet by mouth. magnesium oxide 250 mg magnesium Tablet Take 250 mg by mouth daily. iykstgkh-tlkhi-hgofn-CF borate (Move Free [facility]) 750 mg-100 mg- 1.65 mg- 108 mg Tablet Take 1Tablet by mouth daily. FLUZONE HIGH-DOSE , PF, 180 mcg/0.5 mL Syringe syringe ADM 0.5ML IM UTD 0 calcium carbonate (CALCIUM 300 ORAL) Take by mouth. cinnamon bark (CINNAMON ORAL) Take by mouth. Medication Allergies: Allergies Allergen Reactions Hydrocodone-Acetaminophen Nausea and Vomiting Family History: Family History Problem Relation Name Age of Onset Cancer Mother Diabetes Mother Healthy Sister Social History: Social History Tobacco Use Smoking status: Former Current packs/day: 0.00 Average packs/day: 1.5 packs/day for 4.0 years (6.0 ttl pk-yrs) Types: Cigarettes Start date: 01/17/1962 Quit date: 01/17/1966 Years since quittin.5 Smokeless tobacco: Never Substance Use Topics Alcohol use: No Physical Exam: Patient Vitals for the past 8 hrs: BP Temp Temp src Pulse Resp SpO2 07/09/239 128/62 98.3 ??F (36.8 ??C) Oral 81 18 97 % General: Alert, cooperative, no distress, appears stated age. Head: Normocephalic, without obvious abnormality, atraumatic. Eyes: Conjunctivae/corneas clear. Neck: Supple, symmetrical, trachea midline, no JVD. Back: Symmetric, no curvature. ROM normal. Lungs: Clear to auscultation bilaterally.no wheezes,no crackles Chest wall: No tenderness or deformity. Heart: Regular rate and rhythm, S1, S2 normal . Abdomen: Soft, non-tender. Bowel sounds normal. Extremities: Extremities normal, atraumatic, no cyanosis or edema. Skin: Skin color very pale , texture, turgor normal. No rashes or lesions. Neurologic: CNII-XII intact. Grossly nonfocal . Data Base: See above documentation , ordering CBC I have personally reviewed the ED notes, the admission labs, imaging studies, EKG . I have reviewed previous hospital, office notes and previous laboratory data and imaging studies, procedure notes also that were relevant to this encounter. Assessment&Plan: Acute anemia- hemolytic . Hx of hemolytic anemia cold agglutinins . LDH was elevated . I d/w Dr Ricketts - will see pt in consult , advised on triel of Prednisone 1mg/kg daily- starting today , will transfuse PRBCs only if Hb drops to 6 or below ( as hx of hemochromatosis ) , monitor counts . PNA- suspect gram positive . Multyifocal. Start pneumonia pathway , Rocephin/Azithro , monitor reststatus . Hx of Hemochromatosis /Iron Overload- unable to do phlebotomies sec to hemolytic anemia . Fe studies ordered Hx of CLL Prophylaxis - SCDs Records reviewed Home Meds personally reconciled Code status : D/w family at bedside , heme/onc - Dr Ricketts Pathway started : none Deposition: this patient was admitted under Inpatient: Based upon the patient's clinical condition and documented clinical information, the patient is expected to require hospital care that crosses 2midnights or more. PT/OT : ordered Tamica Guevara MD documented in this encounter Consult Notes * Lucía Ricketts MD - 07/10/2023 7:05 AM CDTAssociated Order(s): IP CONSULT TO HEMATOLOGY/ONCOLOGY This is a 77-year-old white male patient of Dr. Wisam Little followed at [facility] in 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 He has not required treatment for CLL. He was last seen by Dr. Little on 04/11/23. He was admittedon 07/08 as a direct admit from outside hospital where he went with fever, cough and chills. CT scan showed multifocal pneumonia and was started on Rocephin and azithromycin and was transferred to [facility] for further management. His hemoglobin was around 7 g and was not given blood transfusion because of presence of cold agglutinin disease and also because of underlying heterozygous hemochromatosis with iron overload. He was started on steroids as he also has CLL which can precipitate IGG mediated autoimmune hemolytic anemia. He feels better, denies chest pain, shortness of breath, cough or palpitations. Review of Systems: as above and Constitutional: no night sweats, weight loss, or loss of appetite Eyes: no visual loss, eye pain, blurred vision Ears: no hearing loss, or tinnitus Mouth: no oral ulcers, thrush, sore throat, or dysphagia Pulm: no shortness of breath, hemoptysis CV: no chest pain, orthopnea, PND or lower extremity edema GI: no abdominal pain, n/v, constipation, diarrhea, BRBPR, melena : no dysuria, hematuria, frequency or incontinence Musc: no joint pain or swelling Skin: No skin rash, ulcers, itching Neuro: no focal weakness or dementia Psychiatric: no depression, hallucinations. Past Medical History: Diagnosis Date GERD (gastroesophageal reflux disease) Nutritional anemia, unspecified Past Surgical History: Procedure Laterality Date HX BLADDER SURGERY HX GALLBLADDER SURGERY HX KNEE ARTHROSCOPY MOHS SURGERY,HEAD,NECK,HAND,FEET OR GENITAL Social History Tobacco Use Smoking status: Former Current packs/day: 0.00 Average packs/day: 1.5 packs/day for 4.0 years (6.0 ttl pk-yrs) Types: Cigarettes Start date: 01/17/1962 Quit date: 01/17/1966 Years since quittin.5 Smokeless tobacco: Never Substance Use Topics Alcohol use: No Drug use: No Family History Problem Relation Name Age of Onset Cancer Mother Diabetes Mother Healthy Sister Allergies Allergen Reactions Hydrocodone-Acetaminophen Nausea and Vomiting Current medications: Rocephin, ztrhomax, tylelnol, zofran, Tessalon, prednisone. Physical Examination: General: This is an adult WM patient in no obvious distress; off oxygen+ HEENT: Head is normocephalic, PERRLA, EOMI, conjunctiva and sclera are nonicteric Neck: supple, no carotid bruit, no cervical/supraclavicular adenopathy Lungs: CTA bilaterally CV: RRR, nl S1, S2, no significant rubs, gallops or murmur Abd: Positive BS, soft, NT, ND, no organomegaly, and no palpable masses Ext: no cyanosis, clubbing or edema Skin: no obvious rash or lesions Neuro: AAO x3, with no focal loss of sensations or motor strength. Lab Results Component Value Date/Time WBC 12.9 (H) 07/10/2023 04:39 AM HGB 6.8 (LL) 07/10/2023 04:39 AM HCT 20.0 (L) 07/10/2023 04:39 AM PLT 241 07/10/2023 04:39 AM MCV 97.1 07/10/2023 04:39 AM Lab Results Component Value Date/Time IRON 154 07/09/2023 09:51 PM TIBC 175 (L) 07/09/2023 09:51 PM FERRITIN 1,303.0 (H) 07/09/2023 09:51 PM Haptoglobin - <10 B12 - 762, folic acid 19. Impression/plan: Autoimmune hemolytic anemia: With history of cold agglutinin disease and has not had severe hemolytic anemia in the past. His hemoglobin has decreased to about 6.8 g but he is not overly symptomatic although has some shortness of breath which can be attributed to concurrent pneumonia. Would transfuse judiciously to avoid iron overload. Typically cold agglutinin disease is mediated by complement and does not respond well to steroids. He may need plasmapheresis if it is severe. Other treatment options would be single agent rituximab or Bendamustine/rituxan considering underlying CLL, sutimlimabwhich will help reduce the hemolysis but does not treat the underlying cold agglutinin disease. Will monitor his labs closely and plan to initiate treatment with rituxan. I have contacted Dr. Little and he is in agreement with starting him on single agent rituximab and will plan to give it to tomorrow and monitor response. CLL: stage 0, has been monitored without treatment. 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 I have explained all of this information to Richard and he verbalized understanding. Thank you for allowing me to partake in this pleasant patient's care, and will follow with you in his management. documented in this encounter Miscellaneous Notes * Care Plan - Elissa Guerrier RN - 07/12/2023 11:37 AM CDT Problem: Respiratory Goal: Achieve optimal respiratory function by discharge and/or maintain baseline function Outcome: Progressing Problem: Gastrointestinal Goal: Achieve optimal gastrointestinal function by discharge or maintain baseline function Outcome: Progressing Problem: Skin Goal: Maintain skin integrity and/or promote wound healing by discharge Outcome: Progressing * Care Plan - Sherine Oscar LMSW - 07/12/2023 11:16 AM CDT DC orders noted. IRVING called and spoke with Pt via room phone regarding setting up Pt with an outpatient infusion appointment for his Rituximab infusion. Pt stated that he needs to get his appointment rescheduled with Dr. Little and then will also need an appointment at the infusion center. IRVING statedthat IRVING will call and arrange. IRVING called and spoke with Jenelle at Dr. Little's office regarding getting Pt set up with his infusion. Jenelle transferred SW to the infusion center. IRVING spoke with Kassy at the infusion center who stated that she needs an order from Dr. Little regarding the infusion needed. Kassy transferred SW to Alison who coordinates all the infusion orders with Dr. Little. IRVING left a message with Alison and requested a call back IRVING called and spoke with Nelda with Dr Little's office regarding setting Pt up with a infusion appointment and Pt needing an order for his Rituxian. Nelda stated that she will reach out to the Pt andget an appointment on the books CAITLIN Mcdonald, MEN'S SWIM COACH Inpatient Logging Worker [facility] [phone] * Care Plan - Brandee Becker, RN - 07/12/2023 1:55 AM CDT Pt A&O x4 and independent in room. No complaints of pain. IV antibiotics given per APR. Pt reports small BM, still requested prn Miralax in AM. Isolation precautions maintained. Pt rested quietlybetween cares with call light in reach. * Care Plan - Sarah Quezada RN - 07/11/2023 4:03 PM CDT Completed Truxima without any difficulty. No BM for 3+ days, Miralax administered this am. Passing flatus. Sputum sample sent to lab. Coughing up scant amount of lowery, thick sputum. CASTRO. Remains on room air. Ambulating in room independently. Afebrile. * Therapy Evaluation - Rosalind Rajan, Physical Therapist - 07/11/2023 12:26 PM CDT PT evaluation orders received. Per conversation with OT, pt is (I) with all functional mobility. Ptdemonstrates no acute skilled PT needs at this time. PT will sign off. Rosalind Richardson, PT, DPT [id number] * Therapy Evaluation - Emmy Johnson Occupational Therapist - 07/11/2023 9:56 AM CDT Occupational Therapy order received, chart reviewed, and evaluation completed. Please see full evaluation below for details. Daily OT notes will be located in Care Plan notes. Thank You. OT INITIAL EVALUATION Reason for Admission: Fevers, cough chills, pneumonia, CLL Ordered by: MD Abbey Activity Order: Activity as tolerated Weight Bearing Status: No restrictions listed. Precautions: contact, droplet PMH: Past Medical History: Diagnosis Date GERD (gastroesophageal reflux disease) Nutritional anemia, unspecified Recommend: Home independently (07/11/23955) Recommendations were made on today's assessment. Additional recommendations will be based on patient's progress in therapy. Equipment needed at DC: No new DME recommended (07/11/23955) S: Patient agreeable to therapy. Patient reports 0/10 pain. Pain intervention: Unneccessary movement avoided, Repositioned for comfort, No intervention required Response to pain intervention: Appeared content Living Situation/Functional Level RETURN AGENT: Pt lives with his in a single story home with a ramp toenter. Pt does have a flight of stairs to get to his basement that he accesses infrequently. Pt's primary bedroom and bathroom are on the main level. Pt has a walk in shower. Prior to admission, pt was independent with ADLs and IADLs. Pt also assists his with ADLs and IADLs. Pt ambulates without an assistive device. Pt reports no falls in the past 6 months. Pt reports he just finished showering by himself and dressed himself independently. Home Equipment: WWR, w/c, shower chair, raised toilet seats, grab bars, hand held shower O: Appearance: 77 year old male. Sitting EOB upon OT arrival. Vision: Pt wears bifocals at baseline. Glasses present in room. Pleasant, follows commands. Cognition/Perception: A&Ox4. Pleasant, follows commands. UE ROM: WFL Muscle Tone: WFL UE Strength: WFL Coordination: right Hand Dominant: WFL Sensation: Light touch WFL Skin Integrity: All visible skin intact. RN to monitor. FUNCTIONAL ACTIVITIES ASSESSMENT: Feeding: Independent to bring hand to mouth. Grooming: Pt politely declining due to performing prior to OT arrival. UE Dressing: Pt politely declining due to performing prior to OT arrival. LE Dressing: Pt politely declining due to performing prior to OT arrival. Toilet Transfer: Independent sit<>stand simulated from EOB. Tub/Shower Transfer: Independent simulated step over shower ledge. Functional Mobility: - Independent supine<>sit EOB. - Independent static and dynamic sitting balance. - Independent to ambulate ~20 feet in room without an assistive device. [facility] Daily Activity How much help from another person does the patient currently need? Score 1. Putting on and taking off regular lower body clothing? 4 - None (independent) 2. Bathing (including washing, rinsing, drying)? 4 - None (independent) 3. Toileting, which includes using toilet, bedpan or urinal? 4 - None (independent) 4. Putting on and taking off regular upper body clothing? 4 - None (independent) 5. Taking care of personal grooming such as brushing teeth? 4 - None (independent) 6. Eating meals? 4 - None (independent) Total score 24/24 Scale: 1 - Total - requires total assistance, or cannot do at all 2 - A lot - requires a lot of help (max to mod assist), can use assistive devices 3 - A little - requires a little help (supervision, min assist) can use assistive devices 4 - None - does not require any help and does the activity independently, can use assistive devices Positioning after tx: Pt is sitting EOB, bed alarm off, call light and phone within reach, RN notified. Per conversation with RN, pt is ambulating independently in the room. Other: Increased time spent educating pt on safe body mechanics and fall prevention techniques to implement with his at home. 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 Patient/Family Education: Purpose of OT, OT POC, safety with ADLs and functional mobility. Educatedpt on energy conservation techniques with ADLs and functional mobility. Pt verbalized understanding. Pursed lip breathing, tripod breathing. A: Patient presents at their functional baseline with ADLs and transfers. Demonstrated good safety awareness. Patient has no further questions or concerns about ADLs, home safety or adaptive equipment. Will discharge patient from OT services and complete the order at this time. EVALUATION COMPLEXITY: Low Complexity -These findings are based on patient's self reporting, therapist's objective findings and professional determinations. P: Patient presents at their functional baseline with ADLs and transfers. Demonstrated good safety awareness. Patient has no further questions or concerns about ADLs, home safety or adaptive equipment. Will discharge patient from OT services and complete the order at this time. Zone #: [id number] On weekends--please call [phone] * Care Plan - Sarah Quezada, RN - 07/10/2023 4:01 PM CDT Pt remains on room air, CASTRO. Non productive cough that he states is better than the last few days. Tolerating diet. No BM for 2+ days, Miralax administered, no results yet. Ambulating in room independently. Afebrile. * Treatment Plan - Mandeep Grant RCP - 07/10/2023 11:01 AM CDT [facility] RT Assess and Treat Worksheet and Note Admitting Diagnosis/Pulmonary History: Date of Admission: 07/09/2023 Date of Service: 07/09/2023 Chief Complaint: direct admit from OSH HPI: 77 yo male with Hx of CLL, Autoimmune hemolytic anemia . Hemochromatosis , GERD. Presented to OSH on 06/27/23 with c/c fevers/cough/chills, CT c/a/p done - multifocal PNA, treated with Rocephin and Azithro , required 2 L NC for acute resp failure, now on RA with O2 sats 96%. . Hb count dropped from 7.9 to 6.7 and pt being transferred to [facility] to see heme/onc consult because of his hx of hemolytic anemia . LDH was 487 today . 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 Pt does not score for BD therapy at this time. Pt states that he does not have chronic lung disease. CT shows signs of PNA. PNA ed presented to pt, and informational handout given to him as well. BS Diminished with faint crackles in lower lobes. SpO2 96% on RA. Pt is also noted to have anemia, which may also contribute to him getting exhausted and/or SOB. 2 3 4 5 [address] # WC UC MW BH6 MDI AI date CT comments A I C Dx P 1 N N N 07/07/23 FINDINGS: CHEST: Cardiac chambers within normal size [...] Benign calcified pulmonary granulomata. No pleural effusion. 2 3 4 5 6 7 Bronchodilator Therapy # BS RR WOB O2 PH SH PEFR% (for asthma) Score Class 1 2 0 0 0 0 1 3 0 2 3 4 5 6 7 Post Discharge Education Plan Pt response: Referrals [id number] - Referral to Smoke Cessation [id number] - Referral to Pulmonary Rehab [id number]- Referral to Resp. Clinic Liaison General Ed [id number] - RADHA Smoking Cessation [id number] - RADHA Nebulizer Ed [id number] - RADHA MDI Ed [id number] - RADHA DPI Ed [id number] - RADHA Spiriva HandiHaler Ed Disease Ed [id number] - RADHA Pneumonia Ed [id number] - RADHA Asthma Ed [id number] - RADHA COPD Ed CXR A = Atelectasis per Chest X-Ray WC = Weak Cough CXR I = Infiltrates per Chest X-Ray UC = Pt gets up in chair during the day CXR C = Consolidation per Chest X-Ray MW = Muscular Weakness Dx P = Pneumonia on Hospital Problem list BH6 = 6 sec breath hold on MDI technique Score PH = Score per Pulmonary History PA = MDI independent Score WOB = Score per Work of Breathing AI = Acapella independent Score RR = Score per Respiratory Rate Score O2 = Score per Oxygen requirement Score BS = Score per Breathsounds Score SH = Score per Smoking History * Treatment Plan - Mandeep Grant RCP - 07/10/2023 11:00 AM CDT Images from the original note were not included. Respiratory Therapy Assess and Treat Protocol- [facility] Approved by: [facility]-Medical Executive Committee Approval Date: 02/09/2023 ORDERS ARE ENTERED ???PER PROTOCOL?? Enter the protocol in the patient???s electronic health record using [employer]: .rtassessandtreatprotocol Respiratory Therapy orders: Requires a written order for Assess and Treat Protocol (RT41) or IP Consult to Respiratory Therapy (CON21) by the physician or the physician quilt stuffer. Oxygen desaturation studies (walk studies) must be ordered by the physician unless the IP Consult for Respiratory Therapy includes a statement requesting a walk study if necessary Bronchodilators will be ordered based on classifications CLASSIFICATION *COPD patients may use Ipratropium (Atrovent) *Asthma patients in Exacerbation may use Ipratropium (Atrovent) CLASS/SCORE FREQUENCY MDI AEROSOL HOME THERAPY Class 0/ 0-4 *If patient conditions worsens then reassess no therapy indicated Home Therapy orders can be adhered to as long as the severity score does not call for more therapy Class 1/ 5-8 *Reassess in 24 hrs. *Reassess in 96 hours hrs. after initial assessment *If pt. requests > 3 txs in 24 hours or condition worsens, then reassess. q6 PRN 2 puffs Albuterol 2.5mg Albuterol Class /- *Reassess in 24 hrs * Reassess in 96 hrs after initial assessment. *If patient condition worsens then reassess q6 or QID and q6 PRN 2puffs Albuterol 2.5mg Albuterol Class 05/02-18 *Reassess in 24 hrs * Reassess in 96 hrs after initial assessment. *If patient condition worsens then reassess q4 and q4 PRN 2 puffs Albuterol 2.5 Mg Albuterol Class *Reassess in 24 hrs * Reassess in 96 hrs after initial assessment. *If patient condition worsens then reassess CONSULT PHYSICIAN for Escalation of Care Mode of Delivery The mode of medication delivery is determined by patient ability or patient request for a specific delivery device and ordered as MDI or Nebulizer. The method of delivery may be changed at any time at the discretion of the Respiratory Therapist based on patient need. The method of delivery is not based on the patient???s classification Metered Dose Inhaler (MDI) is administered when: High Flow Nebulizer (HFN) is administered when: a. Medication is available in an MDI a. Medication is not available in MDI b. Patient is alert, cooperative and able to follow commands/instructions b. Patient is unable to perform an MDI c. Patient is able to take a deep breath and perform a minimum of a 6 second breath hold c. Patientis not able to respond to a verbal command d. Patient demonstrates ability to use MDI with spacer effectively d. Patient???s home regimen is with a nebulizer and the Physician does not desire to change to a MDI e. Patient has existing tracheostomy or artificial airway. e. Patient receiving NIPPV and not able to be removed for MDI 4. Lung expansion or Airway clearance may be ordered with one of the following frequencies: TID or match the ordered bronchodilator therapy schedule or Q6 PRN if self-directed (RT feels the patient can perform without direction) following the algorithm below. Instructions General Purpose: The Assess & Treat protocol is made up of two branches; both branches of the protocol will be applied for every patient assessment performed. Adult Bronchodilation To provide assessment of patients receiving inhaled medications. To determine appropriate dosage, frequency, and mode of bronchodilator therapy. To assure that patients receive at least the equivalent of their respiratory home regimen. To identify patients who may require education in understanding how, when, or why they take their respiratory medications. Adult Airway Clearance & Lung Expansion To provide assessment of patients in need of airway clearance or lung expansion therapy. To provide various adjuncts to aid in mobilization of secretions and to treat atelectasis. To provide encouragement and aid in patient???s performance of deep breathing exercises. To guide the Respiratory Therapist through an algorithm that determines the best modality for that patient. In addition, each patient ordered into the Assess and Treat Protocol will be evaluated for patient education needs and oxygen desaturation evaluations (walk studies) that ideally need to be met priorto discharge Policy: 1. Requires a written order for Assess and Treat Protocol (RT41) or IP Consult to Respiratory Therapy (CON21) by the physician or the physician quilt stuffer. 2. Only licensed Respiratory Therapists will be permitted to assess patients using the standardizedRespiratory Assessment for the Assess & Treat Protocol. 3. A copy of the protocol will be placed in the electronic medical record. Respiratory Therapists are required to use the Assess & Treat Protocol flowsheet and worksheetsto provide appropriate communication between health care providers. An assessment note will also beplaced in the medical record outlining the encounter and treatment plan. Changes in mode, frequency, or dosage will be communicated to all appropriate personnel. The RT Assess and Treat Protocol should be ordered on all patients who received mechanical ventilation and are ready for transfer out of the ICU setting. CVICU patients will be enrolled after Extubation even if they are still in the CVICU. The Assess and Treat Protocol will allow for patients to continue home regimen medications as listed in their RETURN AGENT medication list as appropriate. Patients in [facility] and any other 23 hour observation unit who receive orders for inhaled medications via MDI will be changed to the liquid/ nebulizer form of the medication (as available) during their stay by the Respiratory Therapist per protocol. Oxygen desaturation studies (walk studies) must be ordered by the physician unless the IP Consult for Respiratory Therapy includes a statement requesting a walk study if necessary. To meet Medicare requirements, walk studies must be performed within 48 hours of discharge. Walk studies are not indicated for patients transitioning to a intermediate facility, rehabilitation facility, or who have not required oxygen since admission unless otherwise specified by the physician. ASSESS AND TREAT PROTOCOL-ADULT BRONCHODILATION PROCEDURE Indications: Bronchospasm/wheezing (Reactive Airway Disease, Asthma, Emphysema, Chronic Bronchitis, Bronchiolitis) Current Home Bronchodilator usage including short-acting, long-acting, inhaled corticosteroid, anticholinergic, and combination respiratory medications. Other indications stated in the [place] [employer]???s Clinical Practice Guidelines, GOLD COPD Guidelines, and NHLBI Asthma Guidelines. Precautions: N/A Implementation: Scoring the Patient The Respiratory Therapist will evaluate and score the patient???s respiratory status prior to medication delivery using the protocol???s scoring worksheet (shown below). All patient assessment parameters listed below as ???Items?? are to be evaluated. Determine total score (???Findings?? ) based on total points earned from each respiratory item assessed. CLINICAL FINDING 0 1 2 3 4 POINTS BREATH SOUNDS Clear Diminished unilaterally Diminished bilaterally &/or crackles Absent unilaterally &/or wheezes or rhonchi Absent bilaterally, severely diminished or severe wheezing RESPIRATORY RATE RR 8-20 RR 21-25 RR26-30 RR 31-35 RR > 35 WORK OF BREATHING Regular pattern (NO Distress) Dyspnea on exertion, irregular RR pattern Increased at rest Use of Accessory muscles, prolonged expiration, conversational dyspnea Severe shortness of breath, accessory muscle usage, dyspnea at rest O2 REQUIREMENT NO Oxygen 1-3 Liters (FiO2 = 25-35%) 4-6 Liters (FiO2 = 35-50%) FiO2 = 50-90% FiO2 =90-100% PULMONARY HISTORY / STATUS NO History Pneumonia(uncomplicated) History of Pulmonary disease w/ admission for other reason Pulmonary impairment - Acute or chronic Severe Exacerbation Smoking history NO Smoking Past History of Smoking but has quit > 1 year Smoking history < 1 pack a day Smoking history > 1 pack a day Current smoker > 2 packs per day Classifying the Patient Patients are classified based on their admission diagnosis and the severity score determined by theprotocol???s standardized Respiratory Assessment. This mechanism determines their respiratory system status and the severity of symptoms. Based on this classification score the therapist determines the frequency of medication administration as well as how often they are reassessed. CLASSIFICATION *COPD patients may use Atrovent *Asthma patients in Exacerbation may use Atrovent CLASS/SCORE FREQUENCY MDI AEROSOL HOME THERAPY Class 0/ 0-4 *If patient conditions worsens then reassess no therapy indicated Home Therapy orders can be adhered to as long as the severity score does not call for more therapy Class 1/ 5-8 *Reassess in 24 hrs. *Reassess in 96 hours hrs. after initial assessment *If pt. requests > 3 txs in 24 hours or condition worsens, then reassess. q6 PRN 2 puffs Albuterol 2.5mg Albuterol Class 2/-12 *Reassess in 24 hrs * Reassess in 96 hrs after initial assessment. *If patient condition worsens then reassess q6 or QID and q6 PRN 2puffs Albuterol 2.5mg Albuterol Class 3/-18 *Reassess in 24 hrs * Reassess in 96 hrs after initial assessment. *If patient condition worsens then reassess q4 and q4 PRN 2 puffs Albuterol 2.5 Mg Albuterol Class *Reassess in 24 hrs * Reassess in 96 hrs after initial assessment. *If patient condition worsens then reassess CONSULT PHYSICIAN for Escalation of Care Asthma Exacerbation patients may have a Peak flow (PEFR), if patient is able, before and after every treatment Therapy effectiveness will be evaluated by pulmonary assessment and predicted/personal best values. For Asthma Exacerbation patients the dosage may be increased to 5 Mg Albuterol or 8 puffs Albuterol if 1st treatment does not improve breath sounds, PEFR, and patient???s subjective reportof symptom relief. Patients are reassessed per classification with all assessment parameters and given a new score. AnRCP can reassess as needed to manage the needs of the patient. Patients are to be maintained on their home regimen even if their score indicates treatments on a less frequent administration schedule. Patients continuing on Home Regimen will be reassessed after 96 hours and then no further reassessment will occur unless patient condition worsens. The Assess andTreat order may be completed at that time if the patient is being managed by their Cartoonist [employer] Effects. Determine Mode of Delivery using chart below. All MDI therapy will be taught with a spacing device. Mode of Delivery The mode of medication delivery is determined by patient ability or patient request for a specific delivery device. The method of delivery may be changed at any time at the discretion of the Respiratory Therapist based on patient need. The method of delivery is not based on the patient???s classification. Metered Dose Inhaler (MDI) is administered when: High Flow Nebulizer (HFN) is administered when: a. Medication is available in an MDI a. Medication is not available in MDI b. Patient is alert, cooperative and able to follow commands/instructions b. Patient is unable to perform an MDI c. Patient is able to take a deep breath and perform a minimum of a 6 second breath hold c. Patientis not able to respond to a verbal command d. Patient demonstrates ability to use MDI with spacer effectively d. Patient???s home regimen is with a nebulizer and the Physician does not desire to change to a MDI e. Patient has existing tracheostomy or artificial airway. e. Patient receiving NIPPV and not able to be removed for MDI 4)Considerations Review patient???s Prior to Admission (RETURN AGENT) medication list. The Respiratory Therapist will consider ordering any of the following meds based on the patient???s home regimen: Short and long-acting bronchodilators, inhaled corticosteroids, anticholinergics, and combination respiratory medications. Use of the preferred [facility] formulary equivalent should be ordered per Assess and Treat Protocol for use throughout the patients hospital stay. Patients diagnosed with a chronic lung disease, such as COPD or Asthma, will be evaluated for the benefit of a controller medication therapy (long-acting bronchodilators, inhaled corticosteroids, anticholinergics, and combination respiratory medications) if not already on the RETURN AGENT medication list. The Respiratory Therapist will contact the attending physician if a controller therapy may benefit the patient. Xopenex (Levalbuterol) Orders will be followed as below: See Pharmacy Policy, Section: APPROVED THERAPEUTIC INTERCHANGES FOR [facility] Title: Beta Agonists Patients taking home regimen Xopenex will continue with home regimen and at home frequency as long as there is an order from the physician that includes; do not substitute and rationale for need to use levalbuterol. An adverse reaction or hypersensitivity is demonstrated by a 20% increase in heart rate above baseline during or within 10 minutes of administration of albuterol or tremors/shakiness that is noted bythe therapist or reported by the patient that resolve with the use of Xopenex. If the patent demonstrates hypersensitivity to Albuterol, Xopenex will be used. Patients that score for PRN frequency will be given a PRN treatment with the initial assessment unless the patient refuses the therapy. Contact physician at any time for questions about patient? s assessment. i.e. Assessment score is > 16, unable to determine an assessment parameter, home regimen medications not included in protocol, changes in frequency or delivery method for other inhaled medications which do not include Albuterol or Ipratropium. A Medical Emergency Team may be considered at any time. Relative Contraindications: N/A ASSESS AND TREAT PROTOCOL-ADULT AIRWAY CLEARANCE & LUNG EXPANSION PROCEDURE A: Indications: To aid in the mobilization of retained secretions or for sputum retention not responsive to spontaneous or directed coughing. To treat atelectasis. To optimize delivery of bronchodilators in patients receiving bronchial hygiene therapy. For patients with decreased breath sounds or adventitious sounds suggesting secretions in the airway. For patients with abnormal chest x-ray consistent with atelectasis, mucus plugging, infiltrates, orpneumonia. Precautions: N/A Implementation: Gather patient???s objective data needed for pulmonary assessment to determine appropriate airway clearance or lung expansion intervention. Pulmonary assessment should include pulmonary history, co-morbidities, oxygen requirement, breath sounds, current chest X-ray (CXR), chest CT, patient???s ability to ambulate, the amount, color and quality of sputum being produced, laboratory data, cultures, and any other tests that are being ordered. CXR interpretation terms that require intervention for lung expansion or airway clearance include ???atelectasis?? , ???infiltrate?? , ???consolidation?? , or the suspicion of ???pneumonia?? . Assess patient???s ability to comply with specific optimal respiratory interventions such as: ability to effectively cough, , ability to follow directions, ability to independently perform interventions if applicable, ability to seal a mouthpiece, ability to tolerate specific therapies (such as a vest), and/or patient???s willingness to participate in optimal respiratory plan. Refer to the algorithm below to determine specific respiratory intervention(s) that apply to the patient. 5. Frequency of therapy will be TID or match the ordered bronchodilator therapy Schedule. Criteria for diagnosis of atelectasis (at least one): Radiological interpretation on chest x-ray. Terms to look for include ???infiltrates?? , ???consolidation?? , or ???atelectasis?? . High oxygen requirement. (FIO2 > .50 or flow > 10LPM per HFNC). Absent breath sounds over affected area. If patient is ambulatory, instruct patient in cough and deep breathing, and encourage ambulation. If patient is not ambulatory, use PEP device with or without mask for lung recruitment. Criteria for diagnosis of Pneumonia or for CXR/CT with terms ???infiltrates?? , or ???consolidation?? : Breath sounds that are rhonchi (coarse) that do not clear with cough. If patient has effective cough and is ambulatory, instruct patient in deep breathing and coughing. If patient has effective cough but needs assistance to mobilize sputum, consider IPV, vest or vibratory PEP therapy. If patient has a weak or ineffective cough, consider IPV, vest, or handheld mucous clearance device. If patient has muscular weakness, use Cough Assist and /or Quad Cough. Quad cough will be given on a PRN frequency, and may be used in conjunction with Cough Assist. If patient is unable to achieve a therapeutic benefit of sputum mobilization from these methods dueto the patient???s inability to participate in care, nasal tracheal suctioning may be ordered. Alsoconsider ordering a nasal trumpet to protect nasal passages if frequent suctioning is anticipated. Frequency of therapy will be TID or match the ordered bronchodilator therapy schedule. Therapy will be a minimum TID frequency for 24 hours unless patient is able to follow directions without coaching, demonstrates appropriate technique, and will use the device independently, if applicable. Handheld mucous clearance device, oscillatory PEP device will be ordered at a Q6 PRN frequencyfor patients that demonstrate both optimal technique, and ability for independent use. If there is no patient improvement, or patient does not tolerate chosen modality, choose another modality in the arm of the algorithm and reassess daily. After 48 hours of second modality and no patient improvement, consult the Physician. Criteria for evaluation of strong cough: Ability to take an adequate deep breath as defined above followed by ability to close glottis and produce an audible cough Assessment of Outcome: Change in sputum production; improved ease of clearing secretion, increased volume of secretions during and after treatments. Change in breath sounds - with effective therapy, breath sounds may clear or the movement of secretions into the larger airways may cause a change in breath sounds. Note an effect that coughing may have had on the breath sounds Patient subjective response to therapy. Change in chest x-ray - resolution or improvement of atelectasis and localized infiltrates may be slow or dramatic Relative Contraindications: The following should be carefully evaluated and the patient monitored during therapy. Patients unable to tolerate the increased work of breathing during procedures. Increased work of breathing may lead to hypoventilation and hypercarbia. Intracranial pressure (ICP) > 20 mmHg. may increase during therapy Hemodynamic instability may result in further cardiovascular compromise secondary to potential decreased venous return. Recent facial, oral, and skull surgery or trauma. Acute sinusitis. Epistaxis. Esophageal surgery (positive pressure not allowed, consult physician for vest therapy). Bariatric surgery (positive pressure not allowed, consult physician for vest therapy.) Hemoptysis. Nausea and/or air swallowing, with increased potential of vomiting and aspiration. Known or suspected tympanic membrane rupture or other middle ear pathology. Untreated pneumothorax, flail chest, pulmonary barotraumas. * Care Plan - Sherine Oscar LMSW - 07/10/2023 11:00 AM CDT Care Management Initial Assessment Initial Discharge Planning Assessment completed. Discussed Care Management's role and Discharge planning. Discharge Plan: Plan Discharge To: Home with family assist Does the patient have family and/or a caregiver that is willing, able and available to assist if needed? Yes - Name/Relation:Leo/Son Comments: SW met with Patient at bedside to complete assessment and discuss discharge planning. Pt resides in a 1 story home with a finished basement. 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 Pt is independent with ADLs and has no discharge needs at this time Patient Discharge Planning Goal: medical stability Patient will potentially discharge to a SNF/NH? No Care Management visited with: patient via in person. Prior to admission, patient resides at: own home. Patient resides in a 1 story home with ramp to enter. Patient's bedroom and bathroom are located on the main floor. Prior to admission, living arrangements: spouse. Prior to admission, patient's functional level:independent; uses N/A for mobility; needs assistancewith iADLs: N/A Community Ambulator: yes Prior to admission, the patient has the following DME? Yes wheeled walker and wheelchair Services in the home/community: none Receives hemodialysis? No Emergency contact(s): Extended Emergency Contact Information Primary Emergency Contact: ALTAF PRINGLE [facility] Relation: Spouse Secondary Emergency Contact: Leo PRINGLE Mobile Relation: Son Prescription coverage: yes Preferred Pharmacy verified: [facility] - [place], [place] - [address] [id number] - [place], [place] - [address] [facility] [facility] [address] Insurance coverage verified: Payor: MEDICARE / Plan: MEDICARE PART A AND B / Product Type: Medicare/ Secondary Insurance:BLUE CROSS AND BLUE SHIELD Medicaid Status: NA Has VA Benefits: no Employment Status: retired PCP verified as: Ryan Maloney, DO Patient has not had a stay at an acute care hospital in the last 30 days. Recent Falls?: Plan for transportation at discharge: son Care Management contact information provided. Care Management will continue to follow and assist asneeded. CAITLIN Mcdonald, JOSETTE Inpatient Logging Worker II- [facility] [phone] * Therapy Evaluation - Emmy Johnson, Occupational Therapist - 07/10/2023 8:59 AM CDT OT orders received and chart reviewed. Hold OT evaluation at this time due to low Hg. Will continueto follow and re-attempt as medically appropriate. Thank you. [id number] * Therapy Evaluation - Rosalind Rajan Physical Therapist - 07/10/2023 8:45 AM CDT PT evaluation orders received. Holding at this time due to low Hg. PT will continue to follow. Thanks, [id number] documented in this encounter Plan of Treatment Upcoming Encounters Date Type Department Care Team (Late st Contact Info) Description 03/29/2024 10:30 AM MELT SUPERVISOR Office Visit [facility]ology - Sin [address] [address] [place] [address] Wisam Little MD [address] [facility] [address] [place] [address] Scheduled Orders Name Type Priority Associated Diagnoses Order Schedule RT ASSESS AND TREAT Respiratory Care Routine ONE TIME for 1 Occurrences starting 07/09/2023 until 07/09/2023 HEPATITIS B SURFACE AB, QUAL Lab Routine Cold agglutinin disease CLL (chronic lymphocytic leukemia) Acute hemolytic anemia Expected: 07/10/2023, Expires: 07/09/2024 HEPATITIS B SURFACE ANTIGEN Lab Routine Cold agglutinin disease CLL (chronic lymphocytic leukemia) Acute hemolytic anemia Expected: 07/10/2023, Expires: 07/09/2024 HEPATITIS B CORE AB TOTAL Lab Routine Cold agglutinin disease CLL (chronic lymphocytic leukemia) Acute hemolytic anemia Expected: 07/10/2023, Expires: 07/09/2024 COMPREHENSIVE METABOLIC PANEL Lab Stat Cold agglutinin disease CLL (chronic lymphocytic leukemia) Acute hemolytic anemia Expected: 07/11/2023, Expires: 07/10/2024 COMPREHENSIVE METABOLIC PANEL Lab Stat Cold agglutinin disease CLL (chronic lymphocytic leukemia) Acute hemolytic anemia Expected: 07/18/2023, Expires: 07/17/2024 COMPREHENSIVE METABOLIC PANEL Lab Stat Cold agglutinin disease CLL (chronic lymphocytic leukemia) Acute hemolytic anemia Expected: 07/25/2023, Expires: 07/24/2024 COMPREHENSIVE METABOLIC PANEL Lab Stat Cold agglutinin disease CLL (chronic lymphocytic leukemia) Acute hemolytic anemia Expected: 08/01/2023, Expires: 07/31/2024 documented as of this encounter Procedures Procedure Name Priority Date/Time Associated Diagnosis Comments DIFFERENTIAL, MANUAL Routine 07/12/2023 2:17 AM CDT CBC WITH DIFFERENTIAL Routine 07/12/2023 2:17 AM CDT BASIC METABOLIC PANEL Routine 07/12/2023 2:17 AM CDT PNEUMONIA PATHOGEN PCR PANEL Routine 07/11/2023 1:15 PM CDT SPUTUM CULTURE WITH GRAM STAIN Routine 07/11/2023 1:15 PM CDT Cold agglutinin disease DIFFERENTIAL, MANUAL Routine 07/11/2023 5:49 AM CDT CBC WITH DIFFERENTIAL Routine 07/11/2023 5:49 AM CDT BASIC METABOLIC PANEL Routine 07/11/2023 5:49 AM CDT BRAIN NATRIURETIC PEPTIDE, BNP OR PROBNP Routine 07/11/2023 1:52 AM CDT HEPATITIS B CORE AB TOTAL Routine 07/10/2023 4:12 PM CDT HEPATITIS B SURFACE AB, QUAL Routine 07/10/2023 4:12 PM CDT HEPATITIS B SURFACE ANTIGEN Routine 07/10/2023 4:12 PM CDT XR CHEST PA OR AP 1 VW Routine 07/10/2023 11:54 AM CDT DIRECT ARPAN C3 Routine 07/10/2023 8:45 AM CDT DIRECT ARPAN IGG Routine 07/10/2023 8:4 5 AM CDT DIRECT ANTIGLOBULIN TEST Routine 07/10/2023 8:45 AM CDT DIFFERENTIAL, MANUAL Routine 07/10/2023 4:39 AM CDT CBC WITH DIFFERENTIAL Routine 07/10/2023 4:39 AM CDT DIFFERENTIAL, MANUAL Routine 07/09/2023 10:48 PM CDT CBC WITH DIFFERENTIAL Stat 07/09/2023 10:48 PM CDT VITAMIN B12 AND FOLATE Routine 07/09/2023 9:51 PM CDT IRON, TIBC, AND PERCENT SATURATION Routine 07/09/2023 9:51 PM CDT C-REACTIVE PROTEIN Routine 07/09/2023 9: 51 PM CDT HAPTOGLOBIN Stat 07/09/2023 9:51 PM CDT FERRITIN Routine 07/09/2023 9:51 PM CDT OT EVAL AND TREAT Routine 07/09/2023 8:3 9 PM CDT PT EVAL AND TREAT Routine 07/09/2023 8:3 9 PM CDT documented in this encounter Results * (ABNORMAL) MANUAL DIFFERENTIAL (07/12/2023 2:17 AM CDT) SEGMENTED NEUTROPHILS 67 % 07/12/2023 5:36 AM CDT [facility] . [facility] LYMPHOCYTES RELATIVE 21(L) 43 - 53 % 07/12/2023 5:36 AM CDT [facility] - . [facility] MONOCYTES RELATIVE 5 % 07/12/2023 5:36 AM CDT [facility] MYELOCYTES - REL (DIFF) 4(H) <=0 % 07/12/2023 5:36 AM CDT [facility] PROMYELOCYTES RELATIVE 3(H) <=0 % 07/12/2023 5:36 AM CDT [facility] . [facility] NEUTROPHILS ABSOLUTE COUNT 14.07(H) 1.90 - 7.00 K/uL 07/12/2023 5:36 AM CDT [facility] LYMPHOCYTES ABSOLUTE 4.41 0.70 - 4.50 K/uL 07/12/2023 5:36 AM CDT [facility] . [facility] MONOCYTES ABSOLUTE 1.05 0.10 - 1.30 K/uL 07/12/2023 5:36 AM CDT [facility] . [facility] TOTAL CELLS COUNTED IN DIFF 100 07/12/2023 5:36 AM T [facility] PLATELET EST. Consistent w Count 07/12/2023 5:36 AM T [facility] ANISOCYTOSIS 1+ /hpf 07/12/2023 5:36 AM T [facility] [employer] [facility] Blood Venipuncture / Unknown 07/12/2023 2:17 AM CDT 07/12/2023 2:20 AM CDT Narrative [facility] - 07/12/2023 5:36 AM CDT verified by smear review. Tamica Guevara MD HEMATOLOGY O RDERABLES COM [facility] [employer] [facility] CLIA# [id number] [address] [place] [address] * (ABNORMAL) CBC WITH DIFFERENTIAL (07/12/2023 2:17 AM CDT) [facility] WBC 21.0(H) 4.0 - 9.8 K/uL 07/12/2023 3:04 AM CDT [facility] - . [facility] NRBCS 1 % 07/12/2023 3:04 AM CDT [facility] - . [facility] RBC 2.17(L) 4.50 - 5.40 M/uL 07/12/2023 3:04 AM CDT [facility] - . [facility] HEMOGLOBIN 7.2(L) 13.6 - 16.5 g/dL 07/12/2023 3:04 AM T [facility] - . [facility] HEMATOCRIT 21.0(L) 40.0 - 48.0 % 07/12/2023 3:04 AM CDT [facility] - . [facility] MCV 96.8 82.0 - 99.0 fL 07/12/2023 3:04 AM CDT [facility] - [facility] MCH 33.2(H) 27.2 - 32.6 pg 07/12/2023 3:04 AM CDT [facility] - . [facility] MCHC 34.3 31.5 - 35.5 g/dL 07/12/2023 3:04 AM CDT [facility] - . [facility] RDW 15.1(H) 11.5 - 14.5 % 07/12/2023 3:04 AM CDT [facility] - . [facility] RDW-STDEV 52.0(H) 37.1 - 48.7 fL 07/12/2023 3:04 AM CDT [facility] - . [facility] PLATELETS 311 140 - 350 K/uL 07/12/2023 3:04 AM CDT [facility] - . [facility] MPV 11.8 9.3 - 12.4 fL 07/12/2023 3:04 AM CDT [facility] - . [facility] Blood Venipuncture / Unknown 07/12/2023 2:17 AM CDT 07/12/2023 2:20 AM CDT Tamica Guevara MD HEMATOLOGY O RDERABLES [facility] PABLO# [id number] [address] [place] [address] * (ABNORMAL) BASIC METABOLIC PANEL (07/12/2023 2:17 AM CDT) SODIUM 138 136 - 145 mmol/L 07/12/2023 2:50 AM T [facility] POTASSIUM 4.4 3.5 - 5.0 mmol/L 07/12/2023 2:50 AM T [facility] CHLORIDE 107 98 - 107 mmol/L 07/12/2023 2:50 AM [facility] CO2 21(L) 22 - 29 mmol/L 07/12/2023 2:50 AM [facility] CALCIUM 9.0 8.6 - 10.2 mg/dL 07/12/2023 2:50 AM [facility] BUN 17 8 - 23 mg/dL 07/12/2023 2:50 AM [facility] CREATININE 0.89 0.67 - 1.17 mg/dL 07/12/2023 2:50 AM [facility] Comment:The GFR result is no t clinically significant on patients <18 or >70 years of age. GLUCOSE 142(H) 74 - 99 mg/dL 07/12/2023 2:50 AM [facility] GFR >60 mL/min/1.7 3 sq meter 07/12/2023 2:50 AM [facility] Comment:eGFR calculated with 2020 CKD-EPI equation. Vegetarian diet, extremely high or low muscle mass, and may affect results. Cystatin C with Glomerular Filtration Rate is a suitable alternative for these patients. ANION GAP 10 8 - 16 mmol/L 07/12/2023 2:50 AM [facility] Blood Venipuncture / Unknown 07/12/2023 2:17 AM CDT 07/12/2023 2:20 AM CDT Marilyn Macario MD CHEMISTRY ORDERABLES Performing Organization Address [facility] Co de Phone Number [facility]# [id number] [address] [place] [address] * SPUTUM CULTURE WITH GRAM STAIN (07/11/2023 1:15 PM CDT) [facility] CULTURE No pathogens isolated. Normal respiratory esther present. 07/13/2023 8:21 AM CDT [facility] GRAM STAIN Non diagnostic pattern 07/13/2023 8:21 AM CDT [facility] GRAM STAIN 3+ (Moderate) Polymorphonuclear WBC 07/13/2023 8:21 AM CDT [facility] Sputum COUGHED SPUTUM SPECIMEN / Unknown Collection / Unknown 07/11/2023 1:15 PM CDT 07/11/2023 1:23 PM CDT Marilyn Macario MD MICROBIOLOGY - [facility] AL ORDERABLES Performing Organization Address [facility] Hospital/[facility] Co de Phone Number [facility]# [id number] [address] [place] [address] * (ABNORMAL) PNEUMONIA PATHOGEN PCR PANEL (07/11/2023 1:15 PM CDT) [facility] Human Metapneumovirus by PCR DETECTED (A) Not Detected 07/11/2023 5:29 PM CDT [facility] S[employer]um COUGHED SPUTUM SPECIMEN / Unknown Collection / Unknown 07/11/2023 1:15 PM CDT 07/11/2023 1:23 PM CDT Narrative [facility] LABORATORY [facility] - 07/11/2023 5:29 PM CDT A negative result does not exclude the possibility of infection. ??A semi-quantitative (copies/mL) result is provided for bacteria. ??This panel does not distinguish between nucleic acid from live or bacteria or virus. ??Culture is needed for recovery of bacterial isolates and antimicrobial susceptibility testing. The Film Array Pneumonia Pathogen PCR Panel is a multiplexed nucleic acid detection test for 33 targets of bacteria, viruses, and resistance markers in respiratory specimens that cause pneumonia. Bacteria: Acinetobacter calcoaceticus-baumannii complex Enterobacter cloacae complex Escherichia coli Haemophilus influenzae Klebsiella aerogenes Klebsiella oxytoca Klebsiella pneumoniae group Moraxella catarrhalis Proteus spp. Pseudomonas aeruginosa Serratia marcescens Staphylococcus aureus Streptococcus agalactiae Streptococcus pneumoniae Streptococcus pyogenes Atypical Bacteria: Chlamydia pneumoniae Legionella pneumophila Mycoplasma pneumoniae Viruses: Adenovirus Coronavirus (229E, OC43, HKU1, NL63) Human Metapneumovirus Human Rhinovirus/Enterovirus Influenza A Influenza B Parainfluenza Virus Respiratory Syncytial Virus Antimicrobial Resistance Genes: CTX-M IMP KPC NDM OXA-48-like VIM mecA/C and MREJ Marilyn Macario MD MICROBIOLOGY - [facility] AL ORDERABLES [facility] LABORATORY SERVICES [facility]# [id number] [address] [place] [address] * (ABNORMAL) MANUAL DIFFERENTIAL (07/11/2023 5:49 AM CDT) [facility] SEGMENTED NEUTROPHILS 41 % 07/11/2023 8:46 AM CDT [facility] LABORATORY SERVICES - [facility] LYMPHOCYTES RELATIVE 48 43 - 53 % 07/11/2023 8:46 AM CDT [facility] LABORATORY [facility] - . [facility] MONOCYTES RELATIVE 8 % 07/11/2023 8:46 AM CDT [facility] LABORATORY [facility] EOSINOPHILS RELATIVE 1 % 07/11/2023 8:46 AM CDT [facility] LABORATORY [facility] - . [facility] MYELOCYTES - REL (DIFF) 2(H) <=0 % 07/11/2023 8:46 AM CDT [facility] LABORATORY [facility] - [facility] NEUTROPHILS ABSOLUTE COUNT 9.27(H) 1.90 - 7.00 K/uL 07/11/2023 8:46 AM CDT [facility] LABORATORY [facility] - . [facility] LYMPHOCYTES ABSOLUTE 10.85(H) 0.70 - 4.50 K/uL 07/11/2023 8:46 AM CDT [facility] LABORATORY [facility] MONOCYTES ABSOLUTE 1.81(H) 0.10 - 1.30 K/uL 07/11/2023 8:46 AM CDT [facility] LABORATORY SERVICES - [facility] EOSINOPHILS ABSOLUTE 0.23 0.00 - 0.70 K/uL 07/11/2023 8:46 AM T [facility] LABORATORY [facility] - . [facility] TOTAL CELLS COUNTED IN DIFF 100 07/11/2023 8:46 AM T [facility] LABORATORY [facility] - . [facility] PLATELET EST. Consistent w Count 07/11/2023 8:46 AM T [facility] - . [facility] ANISOCYTOSIS 1+ /hpf 07/11/2023 8:46 AM T [facility] LABORATORY [facility] Blood Venipuncture / Unknown 07/11/2023 5:49 AM CDT 07/11/2023 6:04 AM CDT Tamica Guevara MD HEMATOLOGY O RDERABLES COM [facility] CLIA# [id number] [address] [place] [address] * (ABNORMAL) CBC WITH DIFFERENTIAL (07/11/2023 5:49 AM CDT) WBC 22.6(H) 4.0 - 9.8 K/uL 07/11/2023 8:39 AM T [facility] NRBCS 1 % 07/11/2023 8:39 AM T [facility] RBC 2.16(L) 4.50 - 5.40 M/uL 07/11/2023 8:39 AM T [facility] LABORATORY [facility] Comment:Sample warmed to 37C due to possible cold agglutinins. HEMOGLOBIN 7.2(L) 13.6 - 16.5 g/dL 07/11/2023 8:39 AM T [facility] HEMATOCRIT 20.8(L) 40.0 - 48.0 % 07/11/2023 8:39 AM T [facility] LABORATORY [facility] MCV 96.3 82.0 - 99.0 fL 07/11/2023 8:39 AM CDT [facility] LABORATORY SERVICES - [facility] MCH 33.3(H) 27.2 - 32.6 pg 07/11/2023 8:39 AM CDT [facility] LABORATORY SERVICES - [facility] MCHC 34.6 31.5 - 35.5 g/dL 07/11/2023 8:39 AM CDT [facility] LABORATORY SERVICES - [facility] RDW 15.0(H) 11.5 - 14.5 % 07/11/2023 8:39 AM CDT [facility] LABORATORY SERVICES - [facility] RDW-STDEV 51.0(H) 37.1 - 48.7 fL 07/11/2023 8:39 AM CDT [facility] LABORATORY SERVICES - [facility] PLATELETS 251 140 - 350 K/uL 07/11/2023 8:39 AM CDT [facility] LABORATORY SERVICES - [facility] MPV 11.8 9.3 - 12.4 fL 07/11/2023 8:39 AM CDT [facility] LABORATORY SERVICES - [facility] Blood Venipuncture / Unknown 07/11/2023 5:49 AM CDT 07/11/2023 6:04 AM CDT Tamica Guevara MD HEMATOLOGY O RDERABLES [facility] [employer] SERVICES [facility]# [id number] [address] [place] [address] * (ABNORMAL) BASIC METABOLIC PANEL (07/11/2023 5:49 AM CDT) SODIUM 142 136 - 145 mmol/L 07/11/2023 6:50 AM CDT [employer] LABORATORY SERVICES - [facility] POTASSIUM 4.3 3.5 - 5.0 mmol/L 07/11/2023 6:50 AM CDT [employer] LABORATORY SERVICES - . [facility] CHLORIDE 108(H) 98 - 107 mmol/L 07/11/2023 6:50 AM CDT [facility] LABORATORY SERVICES - . [facility] CO2 26 22 - 29 mmol/L 07/11/2023 6:50 AM CDT [facility] LABORATORY SERVICES - [facility] CALCIUM 8.8 8.6 - 10.2 mg/dL 07/11/2023 6:50 AM [facility] BUN 16 8 - 23 mg/dL 07/11/2023 6:50 AM [facility] CREATININE 0.96 0.67 - 1.17 mg/dL 07/11/2023 6:50 AM [facility] Comment:The GFR result is no t clinically significant on patients <18 or >70 years of age. GLUCOSE 94 74 - 99 mg/dL 07/11/2023 6:50 AM [facility] GFR >60 mL/min/1.7 3 sq meter 07/11/2023 6:50 AM [facility] [employer] [facility] Comment:eGFR calculated with 2020 CKD-EPI equation. Vegetarian diet, extremely high or low muscle mass, and may affect results. Cystatin C with Glomerular Filtration Rate is a suitable alternative for these patients. ANION GAP 8 8 - 16 mmol/L 07/11/2023 6:50 AM [facility] [employer] [facility] Blood Venipuncture / Unknown 07/11/2023 5:49 AM CDT 07/11/2023 6:04 AM CDT Marilyn Macario MD CHEMISTRY ORDERABLES [facility] [employer] [facility]# [id number] [address] [place] [address] [place] [address] * (ABNORMAL) BRAIN NATRIURETIC PEPTIDE, BNP OR PROBNP (07/11/2023 1:52 AM CDT) PROBNP, N TERMINAL 889(H) <449 pg/mL 07/11/2023 2:49 AM T [facility] [employer] [facility] Comment: Reference values for screening purposes based on weights and measures sealer's recommendation: Patients less than 75 years: <125 pg/mL Patients 75 years and older: <450 pg/mL Reference values for determination of acute congestive heart failure in dyspneic patients based on PRIDE study (Am J Cardiol 2005;95:948): Patients less than 50 years: <450 pg/mL (Negative predictive value= 99%) Patients 50 years and older: <900 pg/mL (Negative predictive value= 92%) Rule out cutpoint, all ages: <300 pg/mL (Negative predictive value= 99%) Blood Venipuncture / Unknown 07/11/2023 1:52 AM CDT 07/11/2023 2:09 AM CDT Marilyn Macario MD CHEMISTRY ORDERABLES Performing Organization Address [facility] Co de Phone Number [facility] [employer] [facility] CLIA# [id number] [address] [place] [address] * HEPATITIS B CORE AB TOTAL (07/10/2023 4:12 PM CDT) HEPATITIS B CORE AB TOTAL Non-react ashley Non-react ashley 07/11/2023 1:56 PM CDT [facility] Comment:Antibodies to HBc we re not detected; does not exclude the possibility of exposure to HBV. Blood Venipuncture / Unknown 07/10/2023 4:12 PM CDT 07/10/2023 4:16 PM CDT Lucía Ricketts MD CHEMISTRY ORDERABL ES Performing Organization Address [facility] Co de Phone Number [facility] [id number] [facility] [place] [address] * HEPATITIS B SURFACE ANTIGEN (07/10/2023 4:12 PM CDT) HEPATITIS B SURFACE AG NON-REACT ASHLEY Non-react ashley 07/10/2023 4:51 PM CDT [facility] Comment:A non-reactive test result does not exclude the possibility of exposure to or infection with hepatitis B. Blood Venipuncture / Unknown 07/10/2023 4:12 PM CDT 07/10/2023 4:16 PM CDT Lucía Ricketts MD CHEMISTRY ORDERABL ES Performing Organization Address [facility]/ZIP Co de Phone Number [facility]# [id number] [address] [place] [address] * HEPATITIS B SURFACE AB, QUAL (07/10/2023 4:12 PM CDT) HEPATITIS B SURFACE AB, QUAL Non-reacti ve Non-reacti ve 07/10/2023 4:51 PM CDT [facility] Comment:Patient is presumed to be not immune to infection with HBV. Blood Venipuncture / Unknown 07/10/2023 4:12 PM CDT 07/10/2023 4:16 PM CDT Lucía Ricketts MD CHEMISTRY ORDERABL ES Performing Organization Address [facility] Co de Phone Number [facility]# [id number] [address] [place] [address] * XR CHEST PA OR AP 1 VW (07/10/2023 11:54 AM CDT) Anatomical Region Laterality Modality Chest Computed Radiogr aphy 07/10/2023 11:5 4 AM CDT Impressions 07/10/2023 1:16 PM CDT IMPRESSION: Bilateral infiltrates ?? DICTATION LOCATION: Location 1 - [facility] Narrative 07/10/2023 1:16 PM CDT XR CHEST PA OR AP 1 VW DATE: 07/10/2023 11:54 AM HISTORY: Shortness of Breath SOB. ?? See Reason for Exam ?? COMPARISON: None. FINDINGS: There are patchy bilateral infiltrates worse on the right. There is no obvious congestion effusion or pneumothorax. The heart size is normal and the aorta atherosclerotic. Bony structures appear intact. INCIDENTAL FINDINGS: ??None. Procedure Note Derian Lemons MD - 07/10/2023 XR CHEST PA OR AP 1 VW DATE: 07/10/2023 11:54 AM HISTORY: Shortness of Breath SOB. See Reason for Exam COMPARISON: None. FINDINGS: There are patchy bilateral infiltrates worse on the right. There is no obvious congestion effusion or pneumothorax. The heart size is normal and the aorta atherosclerotic. Bony structures appear intact. INCIDENTAL FINDINGS: None. IMPRESSION: Bilateral infiltrates DICTATION LOCATION: Location 1 - [facility] Marilyn Macario MD DIAGNOSTIC IMAGING O RDERABLES * DIRECT ANTIGLOBULIN C3 (07/10/2023 8:45 AM CDT) DIRECT ANTIGLOBULIN C3 Positive 07/10/2023 11:19 AM CDT [facility] LABORATORY SERVICES -- [facility] Blood Venipuncture / Unknown 07/10/2023 8:45 AM CDT 07/10/2023 9:00 AM CDT Lucía Ricketts MD BLOOD BANK ORDERAB LES Performing Organization Address City/[facility]/ZIP Co de Phone Number [facility] LABORATORY [facility] -- [facility] CLIA# [id number] [address] [facility] [place] [address] * DIRECT ANTIGLOBULIN IGG (07/10/2023 8:45 AM CDT) DIRECT ANTIGLOBULIN IGG Negative 07/10/2023 11:17 AM CDT [facility] LABORATORY SERVICES -- [facility] Blood Venipuncture / Unknown 07/10/2023 8:45 AM CDT 07/10/2023 9:00 AM CDT Lucía Ricketts MD BLOOD BANK ORDERAB LES [facility] LABORATORY [facility] -- [facility] CLIA# [id number] [address] [facility] [place] [address] * DIRECT ANTIGLOBULIN TEST W/REFLEX (07/10/2023 8:45 AM CDT) DIRECT ANTIGLOBULIN POLY Positive 07/10/2023 10:39 AM CDT [facility] LABORATORY SERVICES -- [facility] Blood Venipuncture / Unknown 07/10/2023 8:45 AM CDT 07/10/2023 9:00 AM CDT Lucía Ricketts MD BLOOD BANK ORDERAB LES [facility] LABORATORY SERVICES -- [facility] CLIA# [id number] [address] [place] [address] * (ABNORMAL) MANUAL DIFFERENTIAL (07/10/2023 4:39 AM CDT) SEGMENTED NEUTROPHILS 55 % 07/10/2023 7:15 AM CDT [employer] LABORATORY SERVICES - . [facility] LYMPHOCYTES RELATIVE 37(L) 43 - 53 % 07/10/2023 7:15 AM CDT [facility] SERVICES - . [facility] MONOCYTES RELATIVE 4 % 07/10/2023 7:15 AM T [facility] LABORATORY SERVICES - . [facility] BASOPHILS RELATIVE 2 % 07/10/2023 7:15 AM CDT [facility] LABORATORY SERVICES - [facility] MYELOCYTES - REL (DIFF) 2(H) <=0 % 07/10/2023 7:15 AM T [employer] LABORATORY SERVICES - . [facility] NEUTROPHILS ABSOLUTE COUNT 7.10(H) 1.90 - 7.00 K/uL 07/10/2023 7:15 AM CDT [facility] LABORATORY SERVICES - . [facility] LYMPHOCYTES ABSOLUTE 4.77(H) 0.70 - 4.50 K/uL 07/10/2023 7:15 AM CDT [facility] LABORATORY SERVICES - . [facility] MONOCYTES ABSOLUTE 0.52 0.10 - 1.30 K/uL 07/10/2023 7:15 AM T [employer] LABORATORY SERVICES - . [facility] BASOPHILS ABSOLUTE 0.26(H) 0.00 - 0.20 K/uL 07/10/2023 7:15 AM CDT [employer] LABORATORY SERVICES - . [facility] TOTAL CELLS COUNTED IN DIFF 100 07/10/2023 7:15 AM T [employer] SERVICES - . [facility] PLATELET EST. Consistent w Count 07/10/2023 7:15 AM T [employer] LABORATORY SERVICES - . [facility] ANISOCYTOSIS 1+ /hpf 07/10/2023 7:15 AM CDT [facility] [employer] [facility] MICROCYTES 1+ /hpf 07/10/2023 7:15 AM [facility] [employer] [facility] Blood Venipuncture / Unknown 07/10/2023 4:39 AM CDT 07/10/2023 4:48 AM CDT Tamica Guevara MD HEMATOLOGY O RDERABLES COM [facility] CLIA# [id number] [address] [place] [address] * (ABNORMAL) CBC WITH DIFFERENTIAL (07/10/2023 4:39 AM CDT) WBC 12.9(H) 4.0 - 9.8 K/uL 07/10/2023 7:12 AM [facility] [employer] [facility] RBC 2.06(L) 4.50 - 5.40 M/uL 07/10/2023 7:12 AM [facility] [employer] [facility] Comment:Sample warmed to 37C due to possible cold agglutinins. HEMOGLOBIN 6.8(LL) 13.6 - 16.5 g/dL 07/10/2023 7:12 AM [facility] Comment:Verified by repeat a nalysis. HEMATOCRIT 20.0(L) 40.0 - 48.0 % 07/10/2023 7:12 AM [facility] [employer] [facility] MCV 97.1 82.0 - 99.0 fL 07/10/2023 7:12 AM [facility] [employer] [facility] MCH 33.0(H) 27.2 - 32.6 pg 07/10/2023 7:12 AM [facility] [employer] [facility] MCHC 34.0 31.5 - 35.5 g/dL 07/10/2023 7:12 AM [facility] [employer] [facility] RDW 14.7(H) 11.5 - 14.5 % 07/10/2023 7:12 AM [facility] [employer] [facility] RDW-STDEV 51.7(H) 37.1 - 48.7 fL 07/10/2023 7:12 AM CDT [facility] LABORATORY SERVICES - . [facility] PLATELETS 241 140 - 350 K/uL 07/10/2023 7:12 AM CDT [employer] LABORATORY SERVICES - [facility] MPV 12.1 9.3 - 12.4 fL 07/10/2023 7:12 AM CDT [employer] LABORATORY SERVICES - [facility] Blood Venipuncture / Unknown 07/10/2023 4:39 AM CDT 07/10/2023 4:48 AM CDT Tamica Guevara MD HEMATOLOGY O RDERABLES [facility] LABORATORY SERVICES - [facility]# [id number] [address] [facility] [place] [address] * (ABNORMAL) MANUAL DIFFERENTIAL (07/09/2023 10:48 PM CDT) SEGMENTED NEUTROPHILS 39 % 07/10/2023 12:51 AM CDT [employer] LABORATORY SERVICES - . [facility] LYMPHOCYTES RELATIVE 47 43 - 53 % 07/10/2023 12:51 AM CDT [employer] LABORATORY SERVICES - . [place] MONOCYTES RELATIVE 9 % 07/10/2023 12:51 AM CDT [employer] LABORATORY SERVICES - . [place] EOSINOPHILS RELATIVE 1 % 07/10/2023 12:51 AM CDT [employer] LABORATORY SERVICES - . [place] BASOPHILS RELATIVE 1 % 07/10/2023 12:51 AM CDT [employer] LABORATORY SERVICES - [facility] METAMYELOCYTES RELATIVE 2(H) <=0 % 07/10/2023 12:51 AM CDT [employer] LABORATORY SERVICES - . [place] MYELOCYTES - REL (DIFF) 1(H) <=0 % 07/10/2023 12:51 AM CDT [employer] LABORATORY SERVICES - . [place] NEUTROPHILS ABSOLUTE COUNT 6.28 1.90 - 7.00 K/uL 07/10/2023 12:51 AM CDT [employer] LABORATORY SERVICES - . [facility] LYMPHOCYTES ABSOLUTE 7.57(H) 0.70 - 4.50 K/uL 07/10/2023 12:51 AM CDT [facility] LABORATORY SERVICES - [facility] MONOCYTES ABSOLUTE 1.45(H) 0.10 - 1.30 K/uL 07/10/2023 12:51 AM CDT [facility] LABORATORY SERVICES - [facility] EOSINOPHILS ABSOLUTE 0.16 0.00 - 0.70 K/uL 07/10/2023 12:51 AM CDT [facility] LABORATORY SERVICES - [facility] BASOPHILS ABSOLUTE 0.16 0.00 - 0.20 K/uL 07/10/2023 12:51 AM T [facility] LABORATORY SERVICES - [facility] TOTAL CELLS COUNTED IN DIFF 100 07/10/2023 12:51 AM T [facility] LABORATORY [facility] PLATELET EST. Consistent w Count 07/10/2023 12:51 AM T [facility] LABORATORY [facility] ANISOCYTOSIS 1+ /hpf 07/10/2023 12:51 AM [facility] LABORATORY [facility] POLYCHROMASIA 1+ /hpf 07/10/2023 12:51 AM [facility] LABORATORY [facility] Blood Venipuncture / Unknown 07/09/2023 10:48 PM CDT 07/09/2023 10:53 PM CDT Narrative [facility] LABORATORY SERVICES - [facility] - 07/10/2023 12:51 AM CDT Sample warmed to 37C due to possible cold agglutinins. Tamica Guevara MD HEMATOLOGY O RDERABLES COM [facility]# [id number] [address] [facility] [address] * (ABNORMAL) CBC WITH DIFFERENTIAL (07/09/2023 10:48 PM CDT) WBC 16.1(H) 4.0 - 9.8 K/uL 07/10/2023 12:48 AM T [facility] LABORATORY [facility] - . [facility] RBC 2.06(L) 4.50 - 5.40 M/uL 07/10/2023 12:48 AM [facility] LABORATORY [facility]. [facility] HEMOGLOBIN 7.0(L) 13.6 - 16.5 g/dL 07/10/2023 12:48 AM CDT [facility] LABORATORY SERVICES - [facility] HEMATOCRIT 20.1(L) 40.0 - 48.0 % 07/10/2023 12:48 AM CDT [facility] LABORATORY [facility] - [facility] MCV 97.6 82.0 - 99.0 fL 07/10/2023 12:48 AM CDT [facility] LABORATORY SERVICES - [facility] MCH 34.0(H) 27.2 - 32.6 pg 07/10/2023 12:48 AM CDT [facility] LABORATORY SERVICES - [facility] MCHC 34.8 31.5 - 35.5 g/dL 07/10/2023 12:48 AM CDT [facility] LABORATORY SERVICES - [facility] RDW 15.3(H) 11.5 - 14.5 % 07/10/2023 12:48 AM T [facility] - [facility] RDW-STDEV 54.1(H) 37.1 - 48.7 fL 07/10/2023 12:48 AM CDT [facility] - [facility] PLATELETS 245 140 - 350 K/uL 07/10/2023 12:48 AM T [facility] LABORATORY [facility] - [facility] MPV 11.6 9.3 - 12.4 fL 07/10/2023 12:48 AM T [facility]OR[facility]ORY [facility] - [facility] Blood Venipuncture / Unknown 07/09/2023 10:48 PM CDT 07/09/2023 10:53 PM CDT Tamica Guevara MD HEMATOLOGY O RDERABLES [facility] [employer] [facility] CLIA# [id number] [facility] [facility] [place] [address] * (ABNORMAL) C-REACTIVE PROTEIN (07/09/2023 9:51 PM CDT) [facility] CRP 117.4(H) <5.0 mg/L 07/10/2023 1:42 PM CDT [facility] LABOR[facility]ORY [facility] Blood Venipuncture / Unknown 07/09/2023 9:51 PM CDT 07/09/2023 9:54 PM CDT Marilyn Macario MD CHEMISTRY ORDERABLES Performing Organization Address [facility]/ZIP Co de Phone Number [facility]# [id number] [address] [place] [address] * (ABNORMAL) IRON, TIBC, AND PERCENT SATURATION (07/09/2023 9:51 PM CDT) IRON 154 59 - 158 ug/dL 07/09/2023 10:31 PM CDT [facility] TIBC 175(L) 250 - 450 ug/dL 07/09/2023 10:31 PM CDT [facility] IRON % SATURATION 88(H) 20 - 50 % 07/09/2023 10:31 PM CDT [facility] TRANSFERRIN 138(L) 200 - 360 mg/dL 07/09/2023 10:31 PM CDT [facility] [employer] [facility] Blood Venipuncture / Unknown 07/09/2023 9:51 PM CDT 07/09/2023 9:54 PM CDT Tamica Guevara MD CHEMISTRY OR DERABLES Performing Organization Address [facility] Co de Phone Number [facility]# [id number] [address] [place] [address] * VITAMIN B12 AND FOLATE (07/09/2023 9:51 PM CDT) VITAMIN B12 762 232 - 1,245 pg/mL 07/09/2023 11:27 PM CDT [facility] Comment:It has been reported that between 5 to 10% of patients with values between 200 and 400 pg/mL may experience neuropsychiatric and hematologic abnormalities due to occult B12 deficiency. Less than 1% of patients with values above 400 pg/mL will have symptoms. FOLATE, SERUM 18.9 >4.5 ng/mL 07/09/2023 11:27 PM CDT [facility] [facility] Blood Venipuncture / Unknown 07/09/2023 9:51 PM CDT 07/09/2023 9:54 PM CDT Tamica Guevara MD CHEMISTRY OR DERABLES [facility] CLIA# [id number] [address] [place] [address] * (ABNORMAL) FERRITIN (07/09/2023 9:51 PM CDT) FERRITIN 1,303.0(H) 30.0 - 400.0 ng/mL 07/09/2023 10:36 PM CDT [facility] Blood Venipuncture / Unknown 07/09/2023 9:51 PM CDT 07/09/2023 9:54 PM CDT Tamica Guevara MD CHEMISTRY OR DERABLES Performing Organization Address [facility]/ZIP Co de Phone Number [facility] CLIA# [id number] [address] [place] [address] * (ABNORMAL) HAPTOGLOBIN (07/09/2023 9:51 PM CDT) HAPTOGLOBIN <10(L) 30 - 200 mg/dL 07/09/2023 11:09 PM CDT [facility] Blood Venipuncture / Unknown 07/09/2023 9:51 PM CDT 07/09/2023 9:54 PM CDT Tamica Guevara MD CHEMISTRY OR DERABLES [facility] [employer] [facility] CLIA# [id number] [address] [place] [address] documented in this encounter Visit Diagnoses Diagnosis 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 CLL (chronic lymphocytic leukemia) Chronic lymphoid leukemia, without mention of having achieved remission Acute hemolytic anemia Acquired hemolytic anemia, unspecified Pneumonia of both lungs due to infectious organism documented in this encounter Administered Medications Inactive Administered Medications - up to 3 most recent administrations Medication Order MAR Action Action Date Dose Rate Site acetaminophen (TYLENOL) tablet 650 mg 650 mg, Oral, EVERY 6 HOURS PRN, Starting on Mon07/09/23 at 2037, Until Mon07/12/23 at 1625, Other (See Comment), See admin instructions, Routine Given 07/09/2023 10:36 PM CDT 650 mg acetaminophen (TYLENOL) tablet 650 mg 650 mg, Oral, ONE TIME ONLY, 1 dose, On Mon07/11/23 at 1000, Routine Given 07/11/2023 10:42 AM CDT 650 mg albuterol (PROVENTIL,VENTOLIN) 2.5 mg /3 mL (0.083 %) inhalation solution 2.5 mg 2.5 mg, Inhalation, ONE TIME PRN, Starting on Mon07/11/23 at 0656, Until Mon07/12/23 at 1625, Other (See Comment), Hypersensitivity Reaction, Routine azithromycin (ZITHROMAX) 500 mg in sodium chloride 0.9% 255 mL IVPB (PREMIX) 500 mg 500 mg, IV, DAILY, 5 doses, First dose on Mon07/09/23 at 2100, Last dose on Mon07/13/23 at 2100, Routine, Antibiotic Indication: Pneumonia - CAP w/MDR risk factors New Bag 07/11/2023 9:12 PM CDT 500 mg 290 mL/hr New Bag 07/10/2023 9:19 PM CDT 500 mg 290 mL/hr New Bag 07/09/2023 11:29 PM CDT 500 mg 290 mL/hr benzonatate (TESSALON) capsule 200 mg 200 mg, Oral, THREE TIMES DAILY, First dose on Mon07/10/23 at 0600, Until Discontinued, Routine Given 07/12/2023 5:52 AM CDT 200 mg Given 07/11/2023 5:26 PM CDT 200 mg Given 07/11/2023 11:57 AM CDT 200 mg cefTRIAXone (ROCEPHIN) 1,000 mg in dextrose (iso-osmotic) 50 mL IVPB 1,000 mg, IV, EVERY 24 HOURS (DAILY), 5 doses, First dose on Mon07/09/23 at 2030, Last dose on Mon07/13/23 at 2100, Routine, Antibiotic Indication: Pneumonia - CAP w/MDR risk factors New Bag 07/11/2023 8:14 PM CDT 1,000 mg 100 mL /hr New Bag 07/10/2023 11:17 PM CDT 1,000 mg 100 mL/hr New Bag 07/09/2023 10:44 PM CDT 1,000 mg 100 mL/hr chlorpheniramine-HYDROcodone (TUSSIONEX) 8-10 mg/5 mL oral suspension 5 mL 5 mL, Oral, TWO TIMES DAILY, First dose on Mon07/09/23 at 2030, Until Discontinued, Routine Given 07/12/2023 5:52 AM CDT 5 mL Given 07/11/2023 5:26 PM CDT 5 mL Given 07/11/2023 6:13 AM CDT 5 mL dexAMETHasone (DECADRON) 12 mg in sodium chloride 0.9% 50 mL IVPB 12 mg, IV, ONE TIME ONLY, 1 dose, On Mon07/11/23 at 1000, Routine New Bag 07/11/2023 10:52 AM CDT 12 mg 180.6 mL/hr dextrose 5% infusion IV, at 30-999 mL/hr, CONTINUOUS, Starting on Mon07/11/23 at 1000, Until Mon07/12/23 at 1625, Routine diphenhydrAMINE (BENADRYL) injection 25 mg 25 mg, IV, ONE TIME ONLY, 1 dose, On Mon07/11/23 at 1000, Routine Given 07/11/2023 10:41 AM CDT 25 mg diphenhydrAMINE (BENADRYL) injection 25 mg 25 mg, IV, ONE TIME PRN, Starting on Mon07/11/23 at 0656, Until Mon07/12/23 at 1625, Other (See Comment), Hypersensitivity Reaction, Routine EPINEPHrine 1 mg/mL (1 mL) injection 0.3 mg 0.3 mg, IM, ONE TIME PRN, Starting on Mon07/11/23 at 0656, Until Mon07/12/23 at 1625, Anaphylaxis, Hypersensitivity Reaction, Routine famotidine PF (PEPCID) 20 mg/2 mL injection 20 mg 20 mg, IV, ONE TIME ONLY, 1 dose, On Mon07/11/23 at 1000, Routine Given 07/11/2023 10:42 AM CDT 20 mg famotidine PF (PEPCID) 20 mg/2 mL injection 20 mg 20 mg, IV, ONE TIME PRN, Starting on Mon07/11/23 at 0656, Until Mon07/12/23 at 1625, Other (See Comment), Hypersensitivity Reaction, Routine guaiFENesin (ROBITUSSIN) 100 mg/5 mL oral solution 200 mg 200 mg, Oral, EVERY 4 HOURS PRN, Starting on Mon07/11/23 at 1139, Until Mon07/12/23 at 1625, Cough, Routine methylPREDNISolone sodium succinate (SOLU-Medrol) 40 mg in sterile water 1 mL injection 40 mg, IV, ONE TIME PRN, Starting on Mon07/11/23 at 0656, Until Mon07/12/23 at 1625, Other (See Comment), Hypersensitivity reaction, Routine naloxone (NARCAN) 0.4 mg/mL injection 0.1-0.4 mg 0.1-0.4 mg, IV, SEE ADMIN INSTRUCTIONS, Starting on Mon07/09/23 at 2023, Until Mon07/12/23 at 1625, Routine polyethylene glycol (MIRALAX) packet 17 Gram 17 Gram, Oral, EVERY 12 HOURS PRN, Starting on Mon07/10/23 at 0954, Until Mon07/12/23 at 1625, Constipation, Routine Given 07/12/2023 5:52 AM CDT 17 Grams Given 07/11/2023 8:31 AM CDT 17 Grams Given 07/10/2023 11:31 AM CDT 17 Grams predniSONE (DELTASONE) tablet 80 mg 80 mg, Oral, DAILY, First dose on Mon07/09/23 at 2045, Until Discontinued, Routine Given 07/09/2023 10:36 PM CDT 80 mg riTUXimab-abbs (TRUXIMA) 683 mg in sodium chloride 0.9% 683 mL IVPB 683 mg (rounded from 682.5 mg = 375 mg/m2 ? 1.82 m2 Treatment plan adjusted BSA), IV, ONE TIME ONLY, 1 dose, On Mon07/11/23 at 1030, Routine Rate Change 07/11/2023 2:33 PM CDT 350 mL/hr Rate Change 07/11/2023 2:04 PM CDT 300 mL/hr Rate Change 07/11/2023 1:34 PM CDT 250 mL/hr sodium chloride 0.9% infusion IV, at 30-999 mL/hr, CONTINUOUS, Starting on Mon07/11/23 at 1000, Until Mon07/12/23 at 1625, Routine New Bag 07/11/2023 10:50 AM CDT 30 mL/hr 30 mL/hr sodium chloride flush injection 10 mL 10 mL, IV, SEE ADMIN INSTRUCTIONS, Starting on Mon07/11/23 at 0656, Until Mon07/12/23 at 1625, Routine documented in this encounter Active and Recently Administered Medications Times are shown in CDT. Scheduled Medication Order 07/10/2023 07/11/2023 07/12/2023 acetaminophen (TYLENOL) tablet 650 mg (COMPLETED) 650 mg, Oral, ONE TIME ONLY, 1 dose, On Mon07/11/23 at 1000, Routine 1042 (Given - Provider: Sarah Quezada RN) azithromycin (ZITHROMAX) 500 mg in sodium chloride 0.9% 255 mL IVPB (PREMIX) 500 mg 500 mg, IV, DAILY, 5 doses, First dose on Mon07/09/23 at 2100, Last dose on Mon07/13/23 at 2100, Routine, Antibiotic Indication: Pneumonia - CAP w/MDR risk factors 0029 (Stopped - Provider: Vicki Valle LPN)2118 (New Bag - Provider: BRE Anderson)2218 (Stopped - Provider: BRE Anderson) 2111 (New Bag - Provider: Brandee Becker, LULI)2211 (Stopped - Provider: Brandee Becker RN) benzonatate (TESSALON) capsule 200 mg 200 mg, Oral, THREE TIMES DAILY, First dose on Mon07/10/23 at 0600, Until Discontinued, Routine 0726 (Given - Provider: Vicki Valle LPN)1132 (Given - Provider: Sarah Queazda RN)1718 (Given - Provider: Linda Zeng RN) 0613 (Given - Provider: BRE Anderson)1157 (Given - Provider: Sarah Quezada RN)1726 (Given - Provider: Sarah Quezada RN) 0552 (Given - Provider: Brandee Becker, RN)1200 (Due) cefTRIAXone (ROCEPHIN) 1,000 mg in dextrose (iso-osmotic) 50 mL IVPB 1,000 mg, IV, EVERY 24 HOURS (DAILY), 5 doses, First dose on 07/09/23 at 2030, Last dose on Kajal 07/13/23 at 2100, Routine, Antibiotic Indication: Pneumonia - CAP w/MDR risk factors 2317 (New Bag - Provider: BRE Anderson)2347 (Stopped - Provider: BRE Anderson) 2013 (New Bag - Provider: Brandee Becker, LULI)2043 (Stopped - Provider: Brandee Becker RN) chlorpheniramine-HYDRO codone (TUSSIONEX) 8-10 mg/5 mL oral suspension 5 mL 5 mL, Oral, TWO TIMES DAILY, First dose on 07/09/23 at 2030, Until Discontinued, Routine 0726 (Given - Provider: Vicki Valle LPN)1718 (Given - Provider: Linda Zeng RN) 0613 (Given - Provider: BRE Anderson)1726 (Given - Provider: Sarah Quezada RN) 0552 (Given - Provider: Brandee Becker RN) dexAMETHasone (DECADRON) 12 mg in sodium chloride 0.9% 50 mL IVPB (COMPLETED) 12 mg, IV, ONE TIME ONLY, 1 dose, On Mon07/11/23 at 1000, Routine 1052 (New Bag - Provider: Sarah Quezada RN)1112 (Stopped - Provider: Sarah Quezada RN) diphenhydrAMINE (BENADRYL) injection 25 mg (COMPLETED) 25 mg, IV, ONE TIME ONLY, 1 dose, On e 07/11/23 at 1000, Routine 1041 (Given - Provider: Sarah Quezada RN) famotidine PF (PEPCID) 20 mg/2 mL injection 20 mg (COMPLETED) 20 mg, IV, ONE TIME ONLY, 1 dose, On e 07/11/23 at 1000, Routine 1042 (Given - Provider: Sarah Quezada RN) naloxone (NARCAN) 0.4 mg/mL injection 0.1-0.4 mg 0.1-0.4 mg, IV, SEE ADMIN INSTRUCTIONS, Starting on Mon07/09/23 at 2023, Until Mon07/12/23 at 1625, Routine riTUXimab-abbs (TRUXIMA) 683 mg in sodium chloride 0.9% 683 mL IVPB (COMPLETED) 683 mg (rounded from 682.5 mg = 375 mg/m2 ? 1.82 m2 Treatment plan adjusted BSA), IV, ONE TIME ONLY, 1 dose, On Mon07/11/23 at 1030, Routine 1130 (New Bag - Provider: Sarah Quezada RN)1200 (Rate Change - Provider: Sarah Quezada, RN)1232 (Rate Change - Provider: Sarah Quezada RN)1301 (Rate Change - Provider: Sarah Quezada RN)1334 (Rate Change - Provider: Sarah Quezada RN)1404 (Rate Change - Provider: Sarah Quezada, RN)1433 (Rate Change - Provider: Sarah Quezada RN)1509 (Stopped - Provider: Sarah Quezada RN) sodium chloride flush injection 10 mL 10 mL, IV, SEE ADMIN INSTRUCTIONS, Starting on Mon07/11/23 at 0656, Until Mon07/12/23 at 1625, Routine Continuous Medication Order 07/10/2023 07/11/2023 07/12/2023 dextrose 5% infusion IV, at 30-999 mL/hr, CONTINUOUS, Starting on Mon07/11/23 at 1000, Until Mon07/12/23 at 1625, Routine 1000 (Canceled Entry - Provider: Sarah Quezada RN) sodium chloride 0.9% infusion IV, at 30-999 mL/hr, CONTINUOUS, Starting on Mon07/11/23 at 1000, Until Mon07/12/23 at 1625, Routine 1050 (New Bag - Provider: Cami Quezada RN)1511 (Stopped - Provider: Sarah Quezada RN) PRN Medication Order 07/10/2023 07/11/2023 07/12/2023 acetaminophen (TYLENOL) tablet 650 mg 650 mg, Oral, EVERY 6 HOURS PRN, Starting on Mon07/09/23 at 2037, Until Mon07/12/23 at 1625, Other (See Comment), See admin instructions, Routine albuterol (PROVENTIL,VENTOLIN) 2.5 mg /3 mL (0.083 %) inhalation solution 2.5 mg 2.5 mg, Inhalation, ONE TIME PRN, Starting on Mon07/11/23 at 0656, Until Mon07/12/23 at 1625, Other (See Comment), Hypersensitivity Reaction, Routine diphenhydrAMINE (BENADRYL) injection 25 mg 25 mg, IV, ONE TIME PRN, Starting on Mon07/11/23 at 0656, Until Mon07/12/23 at 1625, Other (See Comment), Hypersensitivity Reaction, Routine EPINEPHrine 1 mg/mL (1 mL) injection 0.3 mg 0.3 mg, IM, ONE TIME PRN, Starting on Mon07/11/23 at 0656, Until Mon07/12/23 at 1625, Anaphylaxis, Hypersensitivity Reaction, Routine famotidine PF (PEPCID) 20 mg/2 mL injection 20 mg 20 mg, IV, ONE TIME PRN, Starting on Mon07/11/23 at 0656, Until Mon07/12/23 at 1625, Other (See Comment), Hypersensitivity Reaction, Routine guaiFENesin (ROBITUSSIN) 100 mg/5 mL oral solution 200 mg 200 mg, Oral, EVERY 4 HOURS PRN, Starting on Mon07/11/23 at 1139, Until Mon07/12/23 at 1625, Cough, Routine meperidine (PF) (DEMEROL) injection 12.5 mg 12.5 mg, IV, ONE TIME PRN, Starting on Mon07/11/23 at 0656, Until Mon07/12/23 at 0655, Shivering / Rigors, Routine methylPREDNISolone sodium succinate (SOLU-Medrol) 40 mg in sterile water 1 mL injection 40 mg, IV, ONE TIME PRN, Starting on Mon07/11/23 at 0656, Until Mon07/12/23 at 1625, Other (See Comment), Hypersensitivity reaction, Routine ondansetron (ZOFRAN) 4 mg/2 mL injection 4 mg 4 mg, IV, EVERY 6 HOURS PRN, Starting on Mon07/09/23 at 2037, Until Mon07/12/23 at 1625, Nausea/Emesis, Routine polyethylene glycol (MIRALAX) packet 17 Gram 17 Gram, Oral, EVERY 12 HOURS PRN, Starting on 07/10/23 at 0954, Until 07/12/23 at 1625, Constipation, Routine 1131 (Given - Provider: Sarah Quezada, RN) 0831 (Given - Provider: Sarah Quezada, RN) 0552 (Given - Provider: Brandee Becker RN) documented in this encounter Additional Health Concerns Infection Onset Date Last Indicated Resolved Time Human Metapneumovirus Comment:Added from external infection. Source: [facility] - [facility]. 07/08/2023 07/08/2023 07/11/2023 07/18/2023 1:16 AM C DT documented as of this encounter Care Teams Ssn/Ssbn Assistant Navigator Relationship Specialty Start Date End Date Ryan Maloney DO [address] [place] [phone] PCP - General Family Practice 10/11/22 documented as of this encounter
--- OUTSIDE RECORDS SUMMARY | 2024-02-22 11:20 | XMS_ITS | Encounter Summary ---
Author Organization [facility] Address [address] [place] [address] Care Team Providers Care Instrumental Musician Name Role Phone Ryan Maloney Primary Care Provider + Encounter Details Date Type Department Care Team (Late st Contact Info) Description 07/11/2023 External Device Data STL ABSTRACTION Provider, Abstract [...] st Contact Info) Description 03/29/2024 10:30 AM FITTING ROOM SUPERVISOR Office Visit [facility] Oncology and Hematology - [place] [address] [facility] [address] [place] [address] Wisam Little MD [address] [facility] [address] [place] [address] documented as of this encounter Visit Diagnoses Not on filedocumented in this encounter Additional Health Concerns Infection Onset Date Last Indicated Resolved Time Human Metapneumovirus Comment:Added from external infection. Source: [facility] - [facility]. 07/08/2023 07/08/2023 07/11/2023 07/18/2023 1:16 AM C DT documented as of this encounter Care Teams Instrumental Musician Relationship Specialty Start Date End Date Ryan Maloney DO [address] [place] [phone] PCP - General Family Practice 10/11/22 documented as of this encounter
--- OUTSIDE RECORDS SUMMARY | 2024-02-22 11:20 | XMS_ITS | Encounter Summary ---
Author Organization [facility] Address [address] [place] [address] Care Team Providers Care Screen Room Operator Name Role Phone Ryan Maloney Primary [...] Contact Info) Description 03/29/2024 10:30 AM MANAGER SOFTWARE Office Visit [facility] Oncology and Hematology - [place] [address] [facility] [address] [place] [address] Wisam Little MD [address] [facility] [address] [place] [address] documented as of this encounter Visit Diagnoses Not on filedocumented in this encounter Additional Health Concerns Infection Onset Date Last Indicated Resolved Time Human Metapneumovirus Comment:Added from external infection. Source: [facility] - [facility]. 07/08/2023 07/08/2023 07/11/2023 07/18/2023 1:16 AM C DT documented as of this encounter Care Teams Screen Room Operator Relationship Specialty Start Date End Date Ryan Maloney DO [address] [place] [phone] PCP - General Family Practice 10/11/22 documented as of this encounter
--- OUTSIDE RECORDS SUMMARY | 2024-02-22 11:20 | XMS_ITS | Encounter Summary ---
Author Organization [facility] [employer] [facility] Address [address] [place] [address] Care Team Providers Care Network Lead Name Role Phone Ryan Maloney Baylee DO Primary Care Provider + Reason for Visit * Reason Comments Follow Up Encounter Details Date Type Department Care Team (Late st Contact Info) Description 04/11/2023 3:30 PM MICROCHIP SPECIALIST Office Visit [facility] Oncology and Hematology - [place] [address] [place] [address] [address] [place] [address] Wisam Little MD [address] [facility] [address] [place] [address] 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); Iron overload Social History Tobacco Use Types Packs/Day Years Used Date Smoking Tobacco: Former Cigarettes 1.5 4 1 03/19/1961 - 01/17/1966 Smokeless Tobacco: Never Tobacco Cessation:Counseling Given: Not Answered Alcohol Use Standard Drinks/Week Comments No 0 (1 standard drink = 0.6 oz pur e alcohol) Sex and Gender Information Value Date Recorded Sex Assigned at Not on file Gender Identity Not on file Sexual Orientation Not on file documented as of this encounter Last Filed Vital Signs Vital Sign Reading Time Taken Comments Blood Pressure 140/69 04/11/2023 3:27 PM MICROCHIP SPECIALIST Pulse 77 04/11/2023 3:27 PM MICROCHIP SPECIALIST Temperature 36.8 ??C (98.2 ??F) 04/11/2023 3:27 PM CS T Respiratory Rate 15 04/11/2023 3:27 PM MICROCHIP SPECIALIST Oxygen Saturation 98% 04/11/2023 3:27 PM MICROCHIP SPECIALIST Inhaled Oxygen Concentration - - Weight 76.5 kg (168 lb 9.6 oz) 04/11/2023 3:27 P M MICROCHIP SPECIALIST Height - - Body Mass Index 26.41 10/12/2021 1:09 PM CDT documented in this encounter Progress Notes * Wisam Little MD - 04/11/2023 4:41 PM CST HEMATOLOGY / ONCOLOGY PROGRESS NOTE Patient Identification: Name: Richard Pringle Age: 77 y.o. 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 He denies any excessive tiredness and fatigue. Denies any night sweats fever and chills. No weight loss. Denies any other new complaints. 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 Patient has a history of cold agglutinin hemolytic anemia and work-up including flow cytometric analysis showed CLL. Labs noted. Hemoglobin has slightly gone down. LDH and total bilirubin remain elevated. Clinically he is asymptomatic. I suspect patient cold agglutinin hemolytic anemia is acting up. Patient is clinically asymptomatic and would not require treatment towards underlying CLL. If patient becomes more symptomatic then we will consider starting treatment with Bendamustine Rituxan or Rituxan as a monotherapy. Other option could be sutimlimab Follow-up in 4 weeks or sooner based on symptoms. 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 Iron studies remains elevated. He will continue to avoid iron containing food. Patient cannot have phlebotomy due to anemia. Follow-up in 3 months. TOBACCO COUNSELING He is not a tobacco/nicotine user. 04/11/2023 Wisam Little MD OCHIP SPECIALIST documented in this encounter Plan of Treatment Upcoming Encounters Date Type Department Care Team (Late st Contact Info) Description 03/29/2024 10:30 AM MICROCHIP SPECIALIST Office Visit [facility] Oncology and Hematology - [place] [address] [address] Wisam Little MD [address] [facility] [address] [place] [address] Scheduled Orders Name Type Priority Associated Diagnoses Orde r Schedule COMPREHENSIVE METABOLIC PANEL Lab Stat Iron overload Expected: 07/10/2023, Expires: 04/11/2024 FERRITIN Lab Routine Iron overload Expected: 07/10/2023, Expires: 04/10/2024 IRON, TIBC, AND PERCENT SATURATION Lab Routine Iron overload Expected: 07/10/2023, Expires: 04/10/2024 LACTATE DEHYDROGENASE Lab Routine 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
--- OUTSIDE RECORDS SUMMARY | 2024-02-22 11:20 | XMS_ITS | Encounter Summary ---
Author Organization [facility] Address [address] [place] [address] Care Team Providers Care Aircraft Ordnance Technician Name Role Phone Ryan Maloney Baylee ARELLANO Primary Care Provider + Encounter Details Date Type Department Care Team ([facility] Contact Info) Description 08/01/2023 Orders Only [facility] Oncology and Hematology - Sin [address] [facility] [address] [place] [address] Wisam Little MD [address] [facility] [address] [place] [address] Hemolytic anemia due to cold [...] Encounters Date Type Department Care Team (Late Contact Info) Description 03/29/2024 10:30 AM ROTARY DRIER FEEDER Office Visit [facility] Oncology and Hematology - [place] [address] [facility] [address] [place] [address] Wisam Little MD [address] [facility] [address] [place] [address] Scheduled Orders Name Type Priority Associated Diagnoses Orde r Schedule CBC WITH DIFFERENTIAL Lab Routine 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
--- OUTSIDE RECORDS SUMMARY | 2024-02-22 11:20 | XMS_ITS | Encounter Summary ---
Author Organization [facility] Address [address] [place] [address] Care Team Providers Care Ssn/Ssbn Weapons Equipment Operator Name Role Phone Ryan Maloney DO Primary Care Provider + Encounter Details Date Type Department Care Team (Late st Contact Info) Description 04/10/2023 External Device Data STL ABSTRACTION Provider, Abstract [...] st Contact Info) Description 03/29/2024 10:30 AM FACULTY RESEARCH ASSISTANT Office Visit [facility] Oncology and Hematology - [place] [address] [facility] [address] [place] [address] Wisam Little MD [address] [facility] [address] [place] [address] documented as of this encounter Visit Diagnoses Not on filedocumented in this encounter Care Teams Ssn/Ssbn Weapons Equipment Operator Relationship Specialty Start Date End Date Ryan Maloeny DO [address] [place] [phone] PCP - General Family Practice 10/11/22 documented as of this encounter
--- OUTSIDE RECORDS SUMMARY | 2024-02-22 11:20 | XMS_ITS | Encounter Summary ---
Author Organization [facility] Address [address] [place] [address] Care Team Providers Care Doctor Of Radiology Name Role Phone Ryan Maloney Baylee ARELLANO Primary Care Provider + Encounter Details Date Type Department Care Team (Late st Contact Info) Description 08/02/[address] [facility] Oncology and Hematology - Sin [address] [facility] [address] [place] [address] Wisam Little MD 2227 [facility] [address] [place] [address] Social History Tobacco Use Types [...] Contact Info) Description 03/29/2024 10:30 AM MEDICAL OFFICE SPECIALIST Office Visit [facility] Oncology and Hematology - Sin [address] [facility] [address] [place] [address] Wisam Little MD 2[address] [facility] [address] [place] [address] documented as of this encounter Procedures Procedure Name Priority Date/Time Associated Diagnosis Comments CBC WITH DIFFERENTIAL Routine 08/02/2023 3:33 PM CDT COMPREHENSIVE METABOLIC PANEL Routine 08/02/2023 3:26 PM CDT documented in this encounter Results * CBC WITH DIFFERENTIAL (08/02/2023 3:33 PM CDT) Blood Wisam Little MD HEMATOLOGY ORDERABLE S * COMPREHENSIVE METABOLIC PANEL (08/02/2023 3:26 PM CDT) Blood Wisam Little MD CHEMISTRY ORDERABLES documented in this encounter Visit Diagnoses Not on filedocumented in this encounter Care Teams Doctor Of Radiology Relationship Specialty Start Date End Date Ryan Maloney DO [address] [place] [phone] PCP - General Family Practice 10/11/22 documented as of this encounter
--- OUTSIDE RECORDS SUMMARY | 2024-02-22 11:21 | XMS_ITS | Encounter Summary ---
Author Organization [facility] Address [address] [place] [address] Care Team Providers Care Model Maker Name Role Phone Ryan Maloney DO Primary Care Provider + Encounter Details Date Type Department Care Team (Late st Contact Info) Description 04/07/2023 External Device Data STL ABSTRACTION Provider, Abstract [...] st Contact Info) Description 03/29/2024 10:30 AM AUTHORIZATION MANAGER [facility]ematology - Sin 2[address] [facility] 200 [place] [address] Wisam Little MD [address] [facility] [address] [place] [address] documented as of this encounter Visit Diagnoses Not on filedocumented in this encounter Care Teams Model Maker Relationship Specialty Start Date End Date Ryan Maloney DO [address] [place] [phone] PCP - General Family Practice 10/11/22 documented as of this encounter
--- OUTSIDE RECORDS SUMMARY | 2024-02-22 11:21 | XMS_ITS | Encounter Summary ---
Author Organization [facility] [email or web address] [facility] Address [address] [place] [address] Care Team Providers Care Agricultural Extension Officer Name Role Phone Ryan Maloney Baylee DO Primary Care Provider + Reason for Visit * Reason Comments Follow Up Encounter Details Date Type Department Care Team (Late st Contact Info) Description 02/08/2023 2:30 PM BENEFIT DIRECTOR Office Visit [facility] Oncology and Hematology - Sin [address] [place] [address] [address] [place] [address] Wisam Little MD 2227 [facility] [address] [place] [address] Hemolytic anemia due to cold [...] Sign Reading Time Taken Comments Blood Pressure 135/60 02/08/2023 2:35 PM BENEFIT DIRECTOR Pulse 67 02/08/2023 2:33 PM BENEFIT DIRECTOR Temperature 36.4 ??C (97.6 ??F) 02/08/2023 2:33 PM CS T Respiratory Rate 10 02/08/2023 2:33 PM BENEFIT DIRECTOR Oxygen Saturation - - Inhaled Oxygen Concentration - - Weight 73.9 kg (163 lb) 02/08/2023 2:33 PM BENEFIT DIRECTOR Height - - Body Mass Index 25.53 10/12/2021 1:09 PM CDT documented in this encounter Progress Notes * Wisam Little MD - 02/08/2023 3:18 PM CST HEMATOLOGY / ONCOLOGY PROGRESS NOTE Patient Identification: Name: Richard Pringle Age: 77 y.o. 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 He denies any excessive tiredness and fatigue. No bleeding and bruising. No night sweats fevers and chills. No weight loss. Denies any new long bones endocrinopathy. No other new complaints. Review of system Constitutional: denies fevers, sweats, complain of mild tiredness and fatigue HEENT: denies sinus congestion, [...] lumps, bumps or rashes. 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 Patient has a history of cold agglutinin hemolytic anemia and work-upincluding flow cytometric analysis showed CLL. There is no evidence of lymphadenopathy on examination. Labs showed slightly increased WBC count. Will continue to observe. History of cold agglutinin hemolytic anemia. Hemoglobin has dropped. He denies any excessive tiredness and fatigue. He will continue folic acid. We will repeat CBC in 2 months. Hereditary hemochromatosis with H63D heterozygous state. Iron studies remains elevated. He cannot have phlebotomy due to anemia. He will continue to avoid iron containing food. Follow-up in 2 months. 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
--- OUTSIDE RECORDS SUMMARY | 2024-02-22 11:21 | XMS_ITS | Encounter Summary ---
Author Organization [facility] [employer] [facility] Address [address] [place] [address] Care Team Providers Care Pie Filling Mixer Name Role Phone Ryan Maloney Primary Care Provider + Encounter Details Date Type Department Care Team (Late st Contact Info) Description 04/06/2023 Orders Only [facility] Oncology and Hematology [facility] [address] [place] [address] Wisam Little MD [address] [employer] [address] [place] [address] Social History Tobacco Use Types [...] st Contact Info) Description 03/29/2024 10:30 AM MORTGAGE LOAN COUNSELOR Office Visit [facility] Oncology and Hematology - Sin [address] [place] [address] Wisam Little MD [address] [employer] [address] [place] [address] documented as of this encounter Procedures Procedure Name Priority Date/Time Associated Diagnosis Comments COMPREHENSIVE METABOLIC PANEL Routine 04/05/2023 2:20 PM MORTGAGE LOAN COUNSELOR CBC WITH DIFFERENTIAL Routine 04/05/2023 10:21 AM MORTGAGE LOAN COUNSELOR documented in this encounter Results * COMPREHENSIVE METABOLIC PANEL (04/05/2023 2:20 PM MORTGAGE LOAN COUNSELOR) Blood Wisam Little MD CHEMISTRY ORDERABLES * CBC WITH DIFFERENTIAL (04/05/2023 10:21 AM MORTGAGE LOAN COUNSELOR) Blood Wisam Little MD HEMATOLOGY ORDERABLE S documented in this encounter Visit Diagnoses Not on filedocumented in this encounter Care Teams Pie Filling Mixer Relationship Specialty Start Date End Date Ryan Maloney DO [address] [place] [phone] PCP - General Family Practice 10/11/22 documented as of this encounter
--- OUTSIDE RECORDS SUMMARY | 2024-02-22 11:21 | XMS_ITS | Encounter Summary ---
Author Organization [facility] Address [address] [place] [address] Care Team Providers Care Senior Economist Name Role Phone Ryan Maloney DO Primary Care Provider + Encounter Details Date Type Department Care Team (Late st Contact Info) Description 02/03/2023 External Device Data STL ABSTRACTION Provider, Abstract [...] st Contact Info) Description 03/29/2024 10:30 AM POLICY VALUE CALCULATOR Office Visit [facility] Oncology and Hematology - Sin 2[address] [facility] 200 [place] [address] Wisam Little MD [address] [facility] [address] [place] [address] documented as of this encounter Visit Diagnoses Not on filedocumented in this encounter Care Teams Senior Economist Relationship Specialty Start Date End Date Ryan Maloney DO [address] [place] [phone] PCP - General Family Practice 10/11/22 documented as of this encounter
--- OUTSIDE RECORDS SUMMARY | 2024-02-22 11:21 | XMS_ITS | Encounter Summary ---
Author Organization [facility] Address [address] [place] [address] Care Team Providers Care Baker Pastry Name Role Phone Ryan Maloney DO Primary Care Provider + Encounter Details Date Type Department Care Team (Late st Contact Info) Description 03/15/2023 External Device Data STL ABSTRACTION Provider, Abstract [...] st Contact Info) Description 03/29/2024 10:30 AM COMMERCIAL SALES CONSULTANT Office Visit [facility] Oncology and Hematology - Sin [address] [facility] [address] [place] [address] Wisam Little MD [address] [facility] [address] [place] [address] documented as of this encounter Visit Diagnoses Not on filedocumented in this encounter Care Teams Baker Pastry Relationship Specialty Start Date End Date Ryan Maloney DO [address] [place] [phone] PCP - General Family Practice 10/11/22 documented as of this encounter
--- OUTSIDE RECORDS SUMMARY | 2024-02-22 11:21 | XMS_ITS | Encounter Summary ---
Author Organization [facility] Address [address] [place] [address] Care Team Providers Care Pattern Perforating Machine Operator Name Role Phone Ryan Maloney DO Primary Care Provider + Encounter Details Date Type Department Care Team (Late st Contact Info) Description 01/05/2023 External Device Data STL ABSTRACTION Provider, Abstract [...] st Contact Info) Description 03/29/2024 10:30 AM LOSS CONTROL MANAGER Office Visit [facility] Oncology and Hematology - Sin [address] [facility] [address] [place] [address] Wisam Little MD 2[address] [facility] [address] [place] [address] documented as of this encounter Visit Diagnoses Not on filedocumented in this encounter Care Teams Pattern Perforating Machine Operator Relationship Specialty Start Date End Date Ryan Maloney DO [address] [place] [phone] PCP - General Family Practice 10/11/22 documented as of this encounter
--- OUTSIDE RECORDS SUMMARY | 2024-02-22 11:21 | XMS_ITS | Encounter Summary ---
Author Organization [facility] [employer] [facility] Address [address] [place] [address] Care Team Providers Care Shoe Stainer Name Role Phone Ryan Maloney Primary Care Provider + Encounter Details Date Type Department Care Team (Late st Contact Info) Description 02/03/2023 Orders Only [facility] Oncology and Hematology [facility] [address] [place] [address] Wisam Little MD [address] [employer] [place] [address] Social History Tobacco Use Types [...] st Contact Info) Description 03/29/2024 10:30 AM SAW FILER Office Visit [facility] Oncology and Hematology - Sin [address] [place] [address] Wisam Little MD [address] [place] [address] documented as of this encounter Procedures Procedure Name Priority Date/Time Associated Diagnosis Comments IRON, TIBC, AND PERCENT SATURATION Routine 02/02/2023 2:27 PM SAW FILER documented in this encounter Results * IRON, TIBC, AND PERCENT SATURATION (02/02/2023 2:27 PM SAW FILER) Blood Wisam Little MD CHEMISTRY ORDERABLES documented in this encounter Visit Diagnoses Not on filedocumented in this encounter Care Teams Shoe Stainer Relationship Specialty Start Date End Date Ryan Maloney DO [address] [place] [phone] PCP - General Family Practice 10/11/22 documented as of this encounter
--- OUTSIDE RECORDS SUMMARY | 2024-02-22 11:22 | XMS_ITS | Encounter Summary ---
Author Organization [facility] [employer] [facility] Address [address] [place] [address] Care Team Providers Care Inside Sales Lead Name Role Phone Provider, Abstract Primary Care Provider Unavail able Encounter Details Date Type Department Care Team (Late st Contact Info) Description 03/31/2021 Orders Only [facility] Oncology and [facility] [address] [place] [address] Latoya Sidhu CLL (chronic lymphocytic leukemia) Social History Tobacco Use Types Packs/Day Years [...] st Contact Info) Description 03/29/2024 10:30 AM LAVENDER FARM WORKER Office Visit [facility] Oncology and [facility] [address] [place] [address] Wisam Little MD [address] [facility] [address] [place] [address] documented as of this encounter Visit Diagnoses Diagnosis CLL (chronic lymphocytic leukemia) Chronic lymphoid leukemia, without mention of having achieved remission documented in this encounter Care Teams Inside Sales Lead Relationship Specialty Start Date End Date Provider, Abstract NO ADDRESS ON FILE PCP - General 06/18/18 10/10/22 documented as of this encounter
--- OUTSIDE RECORDS SUMMARY | 2024-02-22 11:22 | XMS_ITS | Encounter Summary ---
Author Organization [facility] [email or web address] [facility] Address [address] [place] [address] Care Team Providers Care Acoustical Logging Engineer Name Role Phone Provider, Abstract Primary Care Provider Unavail able Reason for Visit * Reason Comments Follow Up Encounter Details Date Type Department Care Team (Late st Contact Info) Description 04/14/2022 1:15 PM JIG HAND Office Visit [facility] Oncology and Hematology - Sin [address] [place] [address] [address] [place] [address] Wisam Little MD 2[address] [facility] [address] [place] [address] CLL (chronic lymphocytic leukemia) (Primary [...] suspected to have Coronavirus/COVID-19? No / Unsure 04/14/2022 1:04 PM JIG HAND documented as of this encounter Last Filed Vital Signs Vital Sign Reading Time Taken Comments Blood Pressure 153/67 04/14/2022 1:22 PM JIG HAND Pulse 66 04/14/2022 1:18 PM JIG HAND Temperature 36.7 ??C (98.1 ??F) 04/14/2022 1:18 PM CS T Respiratory Rate 12 04/14/2022 1:18 PM JIG HAND Oxygen Saturation 99% 04/14/2022 1:18 PM JIG HAND Inhaled Oxygen Concentration - - Weight 75.8 kg (167 lb 3.2 oz) 04/14/2022 1:18 P M JIG HAND Height - - Body Mass Index 26.19 10/12/2021 1:09 PM CDT documented in this encounter Progress Notes * Wisam Little MD - 04/14/2022 1:46 PM CST HEMATOLOGY / ONCOLOGY PROGRESS NOTE Patient Identification: Name: Richard Pringle Age: 76 y.o. 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 He has mild tiredness and fatigue but has been busy taking care of the home chores as his is not able to do a lot of activities. He denies any bleeding and bruising. Denies any fever chills or night sweats. No new lung bumps or lymphadenopathy.No other new complaints. Review of system Constitutional: [...] rashes. 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 Patient has a history of cold agglutinin hemolytic anemia and work-upincluding flow cytometric analysis showed CLL. Patient clinically remains asymptomatic other than mild tiredness and fatigue. There is no evidenceof lymphadenopathy on my examination. He will continue folic acid and multivitamin. Follow-up in 6 months. History of cold agglutinin hemolytic anemia. Hemoglobin stable. Continue folic acid. We will check CBC and LDH in 6 months. 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 Iron studies have improved. No need for phlebotomy as patient is anemic. Follow-up in 6 months. TOBACCO COUNSELING He is not a tobacco user. 04/14/2022 Wisam Little MD HAND documented in this encounter Plan of Treatment Upcoming Encounters Date Type Department Care Team (Late st Contact Info) Description 03/29/2024 10:30 AM JIG HAND Office Visit [facility] Oncology and Hematology [facility] [address] [facility] [address] [place] [address] Wisam Little MD 2[address] [facility] [address] [place] [address] documented as of this encounter Visit Diagnoses Diagnosis CLL (chronic lymphocytic leukemia)- Primary Chronic lymphoid leukemia, without mention of having achieved remission Iron overload Other disorders of iron metabolism documented in this encounter Care Teams Acoustical Logging Engineer Relationship Specialty Start Date End Date Provider, Abstract NO ADDRESS ON FILE PCP - General 06/18/18 10/10/22 documented as of this encounter
--- OUTSIDE RECORDS SUMMARY | 2024-02-22 11:22 | XMS_ITS | Encounter Summary ---
Author Organization [facility] Address [address] [place] [address] Care Team Providers Care Music Box Mechanic Name Role Phone Provider, Abstract Primary Care Provider Unavail able Encounter Details Date Type Department Care Team (Late st Contact Info) Description 10/07/2022 Orders Only [facility] Hematology [facility] [address] [place] [address] Wisam Little MD [facility] [address] [place] [address] Social History Tobacco Use Types Packs/Day [...] st Contact Info) Description 03/29/2024 10:30 AM CELL MANAGER Office Visit [facility]cology [facility] Hematology [facility] [address] [place] [address] Wisam Little MD [address] [place] [address] documented as of this encounter Procedures Procedure Name Priority Date/Time Associated Diagnosis Comments COMPREHENSIVE METABOLIC PANEL Routine 10/06/2022 8:45 AM CDT documented in this encounter Results * COMPREHENSIVE METABOLIC PANEL (10/06/2022 8:45 AM CDT) Blood Wisam Little MD CHEMISTRY ORDERABLES documented in this encounter Visit Diagnoses Not on filedocumented in this encounter Care Teams Music Box Mechanic Relationship Specialty Start Date End Date Provider, Abstract NO ADDRESS ON FILE PCP - General 06/18/18 10/10/22 documented as of this encounter
--- OUTSIDE RECORDS SUMMARY | 2024-02-22 11:22 | XMS_ITS | Encounter Summary ---
Author Organization [facility] Address [address] [facility] Attn: Epic Prelude ADT [place]A [place]D [address] Care Team Providers Care Fish Salter Name Role Phone Provider, Abstract Primary Care Provider Unavail able Encounter Details Date Type Department Care Team (Latest Contact Info) Description 04/06/2021 Travel Social History Tobacco Use Types Packs/Day [...] have Coronavirus / COVID-19? No / Unsure 04/06/2021 9:48 AM APPLIQUER documented as of this encounter Plan of Treatment Upcoming Encounters Date Type Department Care Team (Late st Contact Info) Description 03/29/2024 10:30 AM APPLIQUER Office Visit [facility] Oncology and Hematology - Sin [address] [facility] [address] [place] [address] Wisam Little MD [address] [facility] [address] [place] [address] documented as of this encounter Visit Diagnoses Not on filedocumented in this encounter Care Teams Fish Salter Relationship Specialty Start Date End Date Provider, Abstract NO ADDRESS ON FILE PCP - General 06/18/18 10/10/22 documented as of this encounter
--- OUTSIDE RECORDS SUMMARY | 2024-02-22 11:22 | XMS_ITS | Encounter Summary ---
Author Organization [facility] [employer] [facility] Address [address] [place] [address] Care Team Providers Care Heritage Consultant Name Role Phone Provider, Abstract Primary Care Provider Unavail able Encounter Details Date Type Department Care Team ([facility] Contact Info) Description 08/03/2020 Orders Only [facility] Oncology and [facility] [address] [facility] [address] [place] [address] Wisam Little MD [address] [employer] [address] [place] [address] CLL (chronic lymphocytic leukemia) Social History Tobacco [...] have Coronavirus / COVID-19? No / Unsure 07/30/2020 2:58 PM CDT documented as of this encounter Plan of Treatment Upcoming Encounters Date Type Department Care Team (Late Contact Info) Description 03/29/2024 10:30 AM MOSHGIACH Office Visit [facility] Oncology and Hematology [facility] [address] [facility] [address] [place] [address] Wisam Little MD [address] [address] documented as of this encounter Procedures Procedure Name Priority Date/Time Associated Diagnosis Comments HEPATITIS C ANTIBODY Routine 07/28/2020 PSA Routine 07/28/2020 documented in this encounter Results * HEPATITIS C ANTIBODY W REFLEX (07/28/2020) Blood Abstract Provider CHEMISTRY ORDERABLES * PSA (07/28/2020) Blood Abstract Provider CHEMISTRY ORDERABLES documented in this encounter Visit Diagnoses Diagnosis CLL (chronic lymphocytic leukemia) Chronic lymphoid leukemia, without mention of having achieved remission documented in this encounter Care Teams Heritage Consultant Relationship Specialty Start Date End Date Provider, Abstract NO ADDRESS ON FILE PCP - General 06/18/18 10/10/22 documented as of this encounter
--- OUTSIDE RECORDS SUMMARY | 2024-02-22 11:22 | XMS_ITS | Encounter Summary ---
Author Organization [facility] Address [address] [place] [address] Care Team Providers Care Biodiesel Product Development Manager Name Role Phone Provider, Abstract Primary Care Provider Unavail able Reason for Referral * Laboratory Services (Routine) - Closed Specialty Diagnoses / Procedures Referred By Contac t Referred To Contact Diagnoses Iron overload Procedures HEMOCHROMATOSIS GENOTYPE Wisam Little MD [address] [employer] [address] [address] Referral ID Status Reason Start Date Expiration Date Visits Re quested Visits Authorized [id number] Closed 04/06/2021 05/07/2022 1 1 MBLER MUS[employer] EQUIPMENT Reason for Visit * Reason Comments Follow Up 4 month f/u with lab s Encounter Details Date Type Department Care Team (Late st Contact Info) Description 04/06/2021 10:00 AM ASSEMBLER MUSICAL EQUIPMENT Office Visit [facility] Oncology and Hematology - [place] [facility] [address] [facility] [address] [place] [address] Wisam Little MD [address] [employer] [address] [place] [address] Iron overload (Primary Dx); CLL (chronic lymphocytic leukemia) Social History Tobacco [...] COVID-19? No / Unsure 04/06/2021 9:48 AM ASSEMBLER MUSICAL EQUIPMENT documented as of this encounter Last Filed Vital Signs Vital Sign Reading Time Taken Comments Blood Pressure 134/60 04/06/2021 9:56 AM ASSEMBLER MUSICAL EQUIPMENT Pulse 64 04/06/2021 9:56 AM ASSEMBLER MUSICAL EQUIPMENT Temperature 36.5 ??C (97.7 ??F) 04/06/2021 9:56 AM CS T Respiratory Rate - - Oxygen Saturation 98% 04/06/2021 9:56 AM ASSEMBLER MUSICAL EQUIPMENT Inhaled Oxygen Concentration - - Weight 74.8 kg (164 lb 14.4 oz) 04/06/2021 9:56 AM ASSEMBLER MUSICAL EQUIPMENT Height 170.2 cm (5' 7 ) 04/06/2021 9:56 AM ASSEMBLER MUSICAL EQUIPMENT Body Mass Index 25.83 04/06/2021 9:56 AM ASSEMBLER MUSICAL EQUIPMENT documented in this encounter Progress Notes * Wisam Little MD - 04/06/2021 10:28 AM CST HEMATOLOGY / ONCOLOGY PROGRESS NOTE Patient Identification: Name: Richard Pringle Age: 75 y.o. Sex: male : 1945 DIAGNOSIS Chronic lymphocytic leukemia diagnosed December 2017 History of cold agglutinin hemolytic anemia Iron overload CURRENT TREATMENT TREATMENT HISTORY SUBJECTIVE Patient came into the office for follow-up visit. He denies any night sweats fever chills and weight loss. No bleeding and bruising. No other new complaints. Review of system Constitutional: denies fevers, sweats, fatigue, malaise, weight loss HEENT: denies sinus congestion, hearing or vision [...] 7.7 hemoglobin 13 platelet 196,000 neutrophils 60% [id number]% LDH 631 creatinine 1.0 calcium 8.0 total [...] 212,000 iron 148 saturation 50% ferritin 500 @IMAGEIMP@ Assessment: Plan: Patient Active Problem List Diagnosis Date Noted ??? 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 CLL (chronic lymphocytic leukemia) 01/17/2018 Chronic lymphocytic leukemia. Patient has a history of cold agglutinin hemolytic anemia and work-upincluding flow cytometric analysis showed CLL. Labs noted and stable. No evidence of lymphadenopathy on my examination. Patient clinically remainsasymptomatic. We will repeat labs again in 6 months. History of cold agglutinin hemolytic anemia. CBC stable. Continue folic acid once a day. Iron overload. We will check hemochromatosis testing. Hepatitis panel was negative. He denies taking Tylenol. There is no history of drinking. Ferritin level has come down slightly. Follow-up in 6 months as well. TOBACCO COUNSELING He is not a tobacco user. 04/06/2021 Wisam Little MD [employer] documented in this encounter Plan of Treatment Upcoming Encounters Date Type Department Care Team (Late st Contact Info) Description 03/29/2024 10:30 AM ASSEMBLER MUSICAL EQUIPMENT Office Visit [facility] Oncology and Hematology - [place] [address] [facility] [address] [place] [address] Wisam Little MD [address] [facility] [address] [place] [address] Scheduled Orders Name Type Priority Associated Diagnoses Orde r Schedule HEMOCHROMATOSIS GENOTYPE Lab Routine Iron overload Ordered: 04/06/2021 CBC WITH DIFFERENTIAL Lab Stat CLL (chronic lymphocytic leukemia) Expected: 10/04/2021, Expires: 04/06/2022 COMPREHENSIVE METABOLIC PANEL Lab Stat CLL (chronic lymphocytic leukemia) Expected: 10/04/2021, Expires: 04/06/2022 LACTATE DEHYDROGENASE Lab Routine CLL (chronic lymphocytic leukemia) Expected: 10/04/2021, Expires: 04/06/2022 IRON, TIBC, AND PERCENT SATURATION Lab Routine Iron overload Expected: 10/04/2021, Expires: 04/06/2022 FERRITIN Lab Routine Iron overload Expected: 10/04/2021, Expires: 04/06/2022 documented as of this encounter Visit Diagnoses Diagnosis Iron overload- Primary Other disorders of iron metabolism CLL (chronic lymphocytic leukemia) Chronic lymphoid leukemia, without mention of having achieved remission documented in this encounter Care Teams Biodiesel Product Development Manager Relationship Specialty Start Date End Date Provider, Abstract NO ADDRESS ON FILE PCP - General 06/18/18 10/10/22 documented as of this encounter
--- OUTSIDE RECORDS SUMMARY | 2024-02-22 11:22 | XMS_ITS | Encounter Summary ---
Author Organization [facility] Address [address] [facility] Attn: Epic Prelude ADT MARTA EDMOND [address] Care Team Providers Care Commercial Plumber Name Role Phone Provider, Abstract Primary Care Provider Unavail able Encounter Details Date Type Department Care Team (Latest Contact Info) Description 12/02/2020 Travel Social History Tobacco Use Types Packs/Day [...] have Coronavirus / COVID-19? No / Unsure 12/02/2020 9:50 AM CDT documented as of this encounter Plan of Treatment Upcoming Encounters Date Type Department Care Team (Late st Contact Info) Description 03/29/2024 10:30 AM CORPORATE SECURITIES RESEARCH ANALYST Office Visit [facility] Oncology and Hematology - Sin [address] [facility] [address] [place] [address] Wisam Little MD [address] [facility] [address] [place] [address] documented as of this encounter Visit Diagnoses Not on filedocumented in this encounter Care Teams Commercial Plumber Relationship Specialty Start Date End Date Provider, Abstract NO ADDRESS ON FILE PCP - General 06/18/18 10/10/22 documented as of this encounter
--- OUTSIDE RECORDS SUMMARY | 2024-02-22 11:22 | XMS_ITS | Encounter Summary ---
Author Organization [facility] [employer] [facility] Address [address] [place] [address] Care Team Providers Care Central Office Technician Name Role Phone Provider, Abstract Primary Care Provider Unavail able Encounter Details Date Type Department Care Team (Late Contact Info) Description 04/11/2022 Orders Only [facility] Oncology and [facility] [address] [place] [address] Alison Restrepo Iron overload Social History Tobacco Use Types [...] Coronavirus/COVID-19? No / Unsure 04/14/2022 1:04 PM GLASS SANDER documented as of this encounter Plan of Treatment Upcoming Encounters Date Type Department Care Team (Late Contact Info) Description 03/29/2024 10:30 AM GLASS SANDER Office Visit [facility] Oncology and Hematology [facility] [address] [place] [address] Wisam Little MD [address] [facility] [address] [place] [address] documented as of this encounter Visit Diagnoses Diagnosis Iron overload Other disorders of iron metabolism documented in this encounter Care Teams Central Office Technician Relationship Specialty Start Date End Date Provider, Abstract NO ADDRESS ON FILE PCP - General 06/18/18 10/10/22 documented as of this encounter
--- OUTSIDE RECORDS SUMMARY | 2024-02-22 11:22 | XMS_ITS | Encounter Summary ---
Author Organization [facility] [employer] [facility] Address [address] [place] [address] Care Team Providers Care Warehouse Assembly Worker Name Role Phone Provider, Abstract Primary Care Provider Unavail able Encounter Details Date Type Department Care Team (Late st Contact Info) Description 04/19/2021 Orders Only [facility] Oncology and [facility] [address] [place] [address] Provider, Abstract NO ADDRESS ON FILE Social [...] COVID-19? No / Unsure 04/06/2021 9:48 AM BAGGAGEMAN documented as of this encounter Plan of Treatment Upcoming Encounters Date Type Department Care Team (Late st Contact Info) Description 03/29/2024 10:30 AM BAGGAGEMAN Office Visit [facility] Oncology and Hematology [facility] [address] [place] [address] Wisam Little MD [address] [facility] [address] [place] [address] documented as of this encounter Procedures Procedure Name Priority Date/Time Associated Diagnosis Comments MISCELLANEOUS LAB TEST Routine 04/06/2021 documented in this encounter Results * MISCELLANEOUS LAB TEST (04/06/2021) Abstract Provider CHEMISTRY ORDERABLES documented in this encounter Visit Diagnoses Not on filedocumented in this encounter Care Teams Warehouse Assembly Worker Relationship Specialty Start Date End Date Provider, Abstract NO ADDRESS ON FILE PCP - General 06/18/18 10/10/22 documented as of this encounter
--- OUTSIDE RECORDS SUMMARY | 2024-02-22 11:22 | XMS_ITS | Encounter Summary ---
Author Organization [facility] Address [address] [place] [address] Care Team Providers Care Feather Curling Machine Operator Name Role Phone Provider, Abstract Primary Care Provider Unavail able Reason for Visit * Reason Comments Follow Up 4 month f/u with lab s Encounter Details Date Type Department Care Team (Late st Contact Info) Description 12/02/2020 10:00 AM CDT Office Visit [facility] Oncology and Hematology - [place] [address] [place] [address] [facility] [address] [place] [address] Wisam Little MD [address] [facility] [address] [place] [address] CLL (chronic lymphocytic leukemia) (Primary [...] Sign Reading Time Taken Comments Blood Pressure 149/69 12/02/2020 10:10 AM CDT Pulse 65 12/02/2020 10:10 AM CDT Temperature 37 ??C (98.6 ??F) 12/02/2020 10: 10 AM CDT Respiratory Rate - - Oxygen Saturation 98% 12/02/2020 10: 10 AM CDT Inhaled Oxygen Concentration - - Weight 73.4 kg (161 lb 14.4 oz) 021 10:10 AM CDT Height 170.2 cm (5' 7 ) 12/02/2020 10:1 0 AM CDT Body Mass Index 25.36 12/02/2020 10:10 AM CDT documented in this encounter Progress Notes * Wisam Little MD - 12/02/2020 11:07 AM CDT HEMATOLOGY / ONCOLOGY PROGRESS NOTE Patient Identification: Name: Richard Pringle Age: 75 y.o. Sex: male : 1945 DIAGNOSIS Chronic lymphocytic leukemia diagnosed December 2017 History of cold agglutinin hemolytic anemia CURRENT TREATMENT TREATMENT HISTORY SUBJECTIVE Patient came into the office for follow-up visit. He denies any tiredness and fatigue. Denies any bleeding and bruising. No new lumps bumps or lymphadenopathy. No other new complaints. Review of [...] 7.7 hemoglobin 13 platelet 196,000 neutrophils 60% [id number]% LDH 631 creatinine 1.0 calcium 8.0 total [...] 7.9 hemoglobin 11.8 platelet 207,000 neutrophils 52% @IMAGEIMP@ Assessment: Plan: Patient Active Problem List Diagnosis Date Noted ??? 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 CLL (chronic lymphocytic leukemia) 01/17/2018 Chronic lymphocytic leukemia. Patient has a history of cold agglutinin hemolytic anemia and work-upincluding flow cytometric analysis showed CLL. Labs noted. Hemoglobin has improved. WBC remains stable. No evidence of lymphadenopathy. Clinicallyhe is asymptomatic. We will repeat labs again in 4 months. History of cold agglutinin hemolytic anemia. CBC has improved. Continue folic acid once a day. Ironhas been discontinued due to elevated iron level. Elevated bilirubin. Patient denies any drinking history. He is not taking any Tylenol. Previous bilirubin was also elevated. Hepatitis testing was negative. We will continue to observe and repeat CMPin 4 months. TOBACCO COUNSELING He is not a tobacco user. 12/02/2020 Wisam Little MD documented in this encounter Plan of Treatment Upcoming Encounters Date Type Department Care Team (Late st Contact Info) Description 03/29/2024 10:30 AM CHAMBER WALKER Office Visit [facility] Oncology and Hematology - [place] [address] [place] [address] Wisam Little MD [address] [facility] [address] [place] [address] Scheduled Orders Name Type Priority Associated Diagnoses Orde r Schedule CBC WITH DIFFERENTIAL Lab Stat CLL (chronic lymphocytic leukemia) Expected: 03/24/2021, Expires: 12/02/2021 COMPREHENSIVE METABOLIC PANEL Lab Stat CLL (chronic lymphocytic leukemia) Expected: 03/24/2021, Expires: 12/02/2021 FERRITIN Lab Routine CLL (chronic lymphocytic leukemia) Expected: 03/24/2021, Expires: 12/02/2021 IRON, TIBC, AND PERCENT SATURATION Lab Routine CLL (chronic lymphocytic leukemia) Expected: 03/24/2021, Expires: 12/02/2021 documented as of this encounter Visit Diagnoses Diagnosis CLL (chronic lymphocytic leukemia)- Primary Chronic lymphoid leukemia, without mention of having achieved remission documented in this encounter Care Teams Feather Curling Machine Operator Relationship Specialty Start Date End Date Provider, Abstract NO ADDRESS ON FILE PCP - General 06/18/18 10/10/22 documented as of this encounter
--- OUTSIDE RECORDS SUMMARY | 2024-02-22 11:22 | XMS_ITS | Encounter Summary ---
Author Organization [facility] Address [address] [facility] Attn: Epic Prelude ADT MARTA EDMOND [address] Care Team Providers Care Data Management Manager Name Role Phone Provider, Abstract Primary Care Provider Unavail able Encounter Details Date Type Department Care Team (Latest Contact Info) Description 04/14/2022 Travel Social History Tobacco Use Types Packs/Day [...] Coronavirus/COVID-19? No / Unsure 04/14/2022 1:04 PM PULP GRINDER AND BLENDER documented as of this encounter Plan of Treatment Upcoming Encounters Date Type Department Care Team (Late st Contact Info) Description 03/29/2024 10:30 AM PULP GRINDER AND BLENDER Office Visit [facility] Oncology and Hematology - [place] [address] [place] [address] Wisam Little MD [address] [facility] [address] [place] [address] documented as of this encounter Visit Diagnoses Not on filedocumented in this encounter Care Teams Data Management Manager Relationship Specialty Start Date End Date Provider, Abstract NO ADDRESS ON FILE PCP - General 06/18/18 10/10/22 documented as of this encounter
--- OUTSIDE RECORDS SUMMARY | 2024-02-22 11:22 | XMS_ITS | Encounter Summary ---
Author Organization [facility] Address [address] [place] [address] Care Team Providers Care Vehicle Body Builder Name Role Phone Provider, Abstract Primary Care Provider Unavail able Encounter Details Date Type Department Care Team (Late st Contact Info) Description 11/27/2020 Orders Only [facility] Oncology and [facility] [address] [place] [address] Latoya Sidhu CLL (chronic lymphocytic [...] st Contact Info) Description 03/29/2024 10:30 AM TEXTILE SCIENCE TECHNICIAN Office Visit [facility] Oncology and [facility] [address] [place] [address] Wisam Little MD [address] [facility] [address] [place] [address] documented as of this encounter Visit Diagnoses Diagnosis CLL (chronic lymphocytic leukemia) Chronic lymphoid leukemia, without mention of having achieved remission documented in this encounter Care Teams Vehicle Body Builder Relationship Specialty Start Date End Date Provider, Abstract NO ADDRESS ON FILE PCP - General 06/18/18 10/10/22 documented as of this encounter
--- OUTSIDE RECORDS SUMMARY | 2024-02-22 11:22 | XMS_ITS | Encounter Summary ---
Author Organization [facility] [employer] [facility] Address [address] [place] [address] Care Team Providers Care Hydraulic Jack Adjuster Name Role Phone Provider, Abstract Primary Care Provider Unavail able Encounter Details Date Type Department Care Team (Late Contact Info) Description 08/04/2020 Orders Only [facility] Oncology and [facility] [address] [place] [address] Provider, Abstract NO ADDRESS ON [...] st Contact Info) Description 03/29/2024 10:30 AM TUBE MOLDER FIBERGLASS Office Visit [facility] Oncology and Hematology [facility] [address] [place] [address] Wisam Little MD [address] [facility] [address] [place] [address] documented as of this encounter Procedures Procedure Name Priority Date/Time Associated Diagnosis Comments TRIGLYCERIDE Routine 07/29/2020 TSH Routine 07/29/2020 PSA Routine 07/29/2020 documented in this encounter Results * TRIGLYCERIDE (07/29/2020) Blood Abstract Provider CHEMISTRY ORDERABLES * TSH (07/29/2020) Blood Abstract Provider CHEMISTRY ORDERABLES * PSA (07/29/2020) Blood Abstract Provider CHEMISTRY ORDERABLES documented in this encounter Visit Diagnoses Not on filedocumented in this encounter Care Teams Hydraulic Jack Adjuster Relationship Specialty Start Date End Date Provider, Abstract NO ADDRESS ON FILE PCP - General 06/18/18 10/10/22 documented as of this encounter
--- OUTSIDE RECORDS SUMMARY | 2024-02-22 11:22 | XMS_ITS | Encounter Summary ---
Author Organization [facility] Address [address] [facility] Attn: Epic Prelude ADT MARTA EDMON[place] [address] Care Team Providers Care Director Process Name Role Phone Provider, Abstract Primary Care Provider Unavail able Encounter Details Date Type Department Care Team (Latest Contact Info) Description 10/12/2021 Travel Social History Tobacco Use Types Packs/Day [...] suspected to have Coronavirus/COVID-19? No / Unsure 10/12/2021 1:02 PM CDT documented as of this encounter Plan of Treatment Upcoming Encounters Date Type Department Care Team (Late st Contact Info) Description 03/29/2024 10:30 AM DINKEY LOCOMOTIVE OPERATOR Office Visit [facility] Oncology and Hematology - [place] [address] [facility] [address] [facility] [address] [place] [address] Wisam Little MD [address] [facility] [address] [place] [address] documented as of this encounter Visit Diagnoses Not on filedocumented in this encounter Care Teams Director Process Relationship Specialty Start Date End Date Provider, Abstract NO ADDRESS ON FILE PCP - General 06/18/18 10/10/22 documented as of this encounter
--- OUTSIDE RECORDS SUMMARY | 2024-02-22 11:22 | XMS_ITS | Encounter Summary ---
Author Organization [facility] [employer] [facility] Address [address] [place] [address] Care Team Providers Care Process Supervisor Name Role Phone Provider, Abstract Primary Care Provider Unavail able Encounter Details Date Type Department Care Team (Late st Contact Info) Description 10/06/2021 Orders Only [facility] Oncology [facility] [address] [place] [address] Wisam Little MD [address] [place] [address] CLL (chronic lymphocytic leukemia); Iron overload Social History Tobacco Use Types [...] st Contact Info) Description 03/29/2024 10:30 AM CYCLE DIRECTOR Office Visit [facility] Oncology [facility] [address] [place] [address] Wisam Little MD [address] [place] [address] documented as of this encounter Visit Diagnoses Diagnosis CLL (chronic lymphocytic leukemia) Chronic lymphoid leukemia, without mention of having achieved remission Iron overload Other disorders of iron metabolism documented in this encounter Care Teams Process Supervisor Relationship Specialty Start Date End Date Provider, Abstract NO ADDRESS ON FILE PCP - General 06/18/18 10/10/22 documented as of this encounter
--- OUTSIDE RECORDS SUMMARY | 2024-02-22 11:22 | XMS_ITS | Encounter Summary ---
Author Organization [facility] Address [address] [place] [address] Care Team Providers Care Creche Attendant Name Role Phone Provider, Abstract Primary Care Provider Unavail able Reason for Visit * Reason Comments Follow Up Encounter Details Date Type Department Care Team (Late st Contact Info) Description 10/12/2021 1:15 PM CDT Office Visit [facility] Oncology and Hematology - [place] [address] [facility] [address] [place] [address] Wisam Little MD [address] [facility] [address] [place] [address] Iron overload (Primary Dx); 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 Social [...] PM CDT documented as of this encounter Last Filed Vital Signs Vital Sign Reading Time Taken Comments Blood Pressure 144/68 10/12/2021 1:09 PM CDT Pulse 60 10/12/2021 1:09 PM CDT Temperature 36.7 ??C (98 ??F) 10/12/2021 1:09 PM CDT Respiratory Rate - - Oxygen Saturation 98% 10/12/2021 1:09 PM CDT Inhaled Oxygen Concentration - - Weight 74.3 kg (163 lb 14.4 oz) 10/12/2021 1:09 PM CDT Height 170.2 cm (5' 7 ) 10/12/2021 1:09 PM CDT Body Mass Index 25.67 10/12/2021 1:09 PM CDT documented in this encounter Progress Notes * Wisam Little MD - 10/12/2021 1:36 PM CDT HEMATOLOGY / ONCOLOGY PROGRESS NOTE Patient Identification: Name: Richard Pringle Age: 75 y.o. 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 He denies any bleeding and bruising. Weight and appetite stable. Denies any excessive tiredness and fatigue. No other new complaints. 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 Patient has a history of cold agglutinin hemolytic anemia and work-upincluding flow cytometric analysis showed CLL. Patient clinically remains asymptomatic. Labs showed improvement in hemoglobin. No evidence of lymphadenopathy. Continue folic acid and multivitamin. Follow-up in 6 months. History of cold agglutinin hemolytic anemia. CBC showed improvement in hemoglobin. Continue folic acid. Hereditary hemochromatosis with H63D heterozygous state. Hepatitis panel was negative. Patient doesnot drink alcohol. Ferritin has improved. I have recommended to avoid Tylenol, alcohol alcohol and red meat. I also informed her to discontinue vitamin C. Follow-up in 6 months. TOBACCO COUNSELING He is not a tobacco user. 10/12/2021 Wisam Little MD documented in this encounter Plan of Treatment Upcoming Encounters Date Type Department Care Team (Late st Contact Info) Description 03/29/2024 10:30 AM SAFETY AND SKILL BASED PAY MANAGER Office Visit [facility] Oncology and Hematology - [place] [address] [facility] [address] [place] [address] Wisam Little MD [address] [facility] [address] [place] [address] Scheduled Orders Name Type Priority Associated Diagnoses Orde r Schedule COMPREHENSIVE METABOLIC PANEL Lab Stat Iron overload Expected: 04/14/2022, Expires: 10/12/2022 documented as of this encounter Visit Diagnoses Diagnosis Iron overload- Primary Other disorders of iron metabolism 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
--- OUTSIDE RECORDS SUMMARY | 2024-02-22 11:22 | XMS_ITS | Encounter Summary ---
Author Organization [facility] [employer] [facility] Address [address] [place] [address] Care Team Providers Care Caregivers Non Medical Name Role Phone Ryan Maloney Baylee DO Primary Care Provider + Reason for Visit * Reason Comments Follow Up Encounter Details Date Type Department Care Team (Late st Contact Info) Description 10/11/2022 1:00 PM CDT Office Visit [facility] Oncology and Hematology - [place] [address] [place] [address] [address] [place] [address] Wisam Little MD [address] [facility] [address] [place] [address] Iron overload (Primary Dx) Social History Tobacco Use Types [...] Sign Reading Time Taken Comments Blood Pressure 122/57 10/11/2022 1:00 PM CDT Pulse 70 10/11/2022 1:00 PM CDT Temperature 37 ??C (98.6 ??F) 10/11/2022 1:00 PM CDT Respiratory Rate 16 10/11/2022 1:00 PM CDT Oxygen Saturation 100% 10/11/2022 1:00 PM CDT Inhaled Oxygen Concentration - - Weight 72.8 kg (160 lb 9.6 oz) 10/11/2022 1:00 P M CDT Height - - Body Mass Index 25.15 10/12/2021 1:09 PM CDT documented in this encounter Progress Notes * Wisam Little MD - 10/11/2022 1:19 PM CDT HEMATOLOGY / ONCOLOGY PROGRESS NOTE Patient Identification: Name: Richard Pringle Age: 76 y.o. 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 He has lost 6 pound weight. Denies any chest pain and abdominal pain. No bleeding and bruising. Denies any excessive tiredness and fatigue. No new lumps bumps or lymphadenopathy. No other new complaints. 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 Patient has a history of cold agglutinin hemolytic anemia and work-upincluding flow cytometric analysis showed CLL. WBC remains stable. There is no evidence of lymphadenopathy on my examination. There is no indication for treatment. We will continue to observe. History of cold agglutinin hemolytic anemia. Hemoglobin has improved. Continue folic acid. He is asymptomatic. Hereditary hemochromatosis with H63D heterozygous state. Iron level has gone up with increasing total bilirubin. Due to anemia we will avoid phlebotomy for now. I have again recommended him to avoid iron and vitamin C containing food. We will repeat labs again in 4 months. 10/11/2022 Wisam Little MD documented in this encounter Plan of Treatment Upcoming Encounters Date Type Department Care Team (Late st Contact Info) Description 03/29/2024 10:30 AM PROJECT OFFICER Office Visit [facility] Oncology and Hematology - [place] [address] [facility] [address] [place] [address] Wisam Little MD [address] [facility] [address] [place] [address] documented as of this encounter Visit Diagnoses Diagnosis Iron overload- Primary Other disorders of iron metabolism documented in this encounter Care Teams Caregivers Non Medical Relationship Specialty Start Date End Date Ryan Maloney DO [address] [place] [phone] PCP - General Family Practice 10/11/22 documented as of this encounter
--- OUTSIDE RECORDS SUMMARY | 2024-02-22 11:23 | XMS_ITS | Encounter Summary ---
Author Organization [facility] [employer] [facility] Address [address] [place] [address] Care Team Providers Care Engine Repairer Production Name Role Phone Provider, Abstract Primary Care Provider Unavail able Encounter Details Date Type Department Care Team (Late Contact Info) Description 01/31/2020 Orders Only [facility] Oncology and Hematology [facility] [address] [place] [address] Wisam Little MD [address] [employer] [address] [place] [address] CLL (chronic lymphocytic leukemia) Social [...] have Coronavirus / COVID-19? No / Unsure 01/30/2020 2:35 PM PHYSICAL OPTICS TEACHER documented as of this encounter Plan of Treatment Upcoming Encounters Date Type Department Care Team (Late Contact Info) Description 03/29/2024 10:30 AM PHYSICAL OPTICS TEACHER Office Visit [facility] Oncology and Hematology [facility] [address] [place] [address] Wisam Little MD [address] [facility] [address] [place] [address] documented as of this encounter Procedures Procedure Name Priority Date/Time Associated Diagnosis Comments CBC WITH DIFFERENTIAL Routine 01/27/2020 CLL (chronic lymphocytic leukemia) documented in this encounter Results * CBC WITH DIFFERENTIAL (01/27/2020) Blood Wisam Little MD HEMATOLOGY ORDERABLE S NON [facility] documented in this encounter Visit Diagnoses Diagnosis CLL (chronic lymphocytic leukemia) Chronic lymphoid leukemia, without mention of having achieved remission documented in this encounter Care Teams Engine Repairer Production Relationship Specialty Start Date End Date Provider, Abstract NO ADDRESS ON FILE PCP - General 06/18/18 10/10/22 documented as of this encounter
--- OUTSIDE RECORDS SUMMARY | 2024-02-22 11:23 | XMS_ITS | Encounter Summary ---
Author Organization [facility] [employer] [facility] Address [address] [place] [address] Care Team Providers Care Pot Sander Name Role Phone Provider, Abstract Primary Care Provider Unavail able Reason for Visit * Reason Comments Follow Up 6 month fu w labs Encounter Details Date Type Department Care Team (Late st Contact Info) Description 07/30/2020 2:45 PM CDT Office Visit [facility] Oncology and Hematology - [place] [address] [place] [address] [facility] [address] [place] [address] Wisam Little MD [address] [facility] [address] [place] [address] CLL (chronic lymphocytic leukemia) (Primary [...] Sign Reading Time Taken Comments Blood Pressure 157/77 07/30/2020 3:22 PM CDT Pulse 67 07/30/2020 3:22 PM CDT Temperature 36.9 ??C (98.4 ??F) 07/30/2020 3:22 PM CD T Respiratory Rate - - Oxygen Saturation 97% 07/30/2020 3:22 PM CDT Inhaled Oxygen Concentration - - Weight 74.1 kg (163 lb 6.4 oz) 07/30/2020 3:22 P M CDT Height 170.2 cm (5' 7 ) 07/30/2020 3:22 PM CDT Body Mass Index 25.59 07/30/2020 3:22 PM CDT documented in this encounter Progress Notes * Wisam Little MD - 07/30/2020 3:51 PM CDT HEMATOLOGY / ONCOLOGY PROGRESS NOTE Patient Identification: Name: Richard Pringle Age: 74 y.o. Sex: male : 1945 DIAGNOSIS Chronic lymphocytic leukemia diagnosed December 2017 History of cold agglutinin hemolytic anemia CURRENT TREATMENT Oral iron once a day with multivitamins TREATMENT HISTORY SUBJECTIVE Patient came into the office for follow-up visit. He denies any excessive tiredness and fatigue. Nobleeding and bruising. No night sweats fever chills and weight loss. No other new complaints. Review of system [...] lumps, bumps or rashes. 12 point review systems reviewed and as above Objective: Vital signs [...] 7.7 hemoglobin 13 platelet 196,000 neutrophils 60% fncmtvmnel26% LDH 631 creatinine 1.0 calcium 8.0 total bilirubin 1.4. Labs from January 26 showed total bilirubin 2.2 hemoglobin 12.2 WBC 9.3 platelet 200,000 neutrophils 52% haptoglobin less than 8 Labs from July 27 showed WBC 8.6 hemoglobin 11.6 platelet 144,000 neutrophils 58% with a 31% total bilirubin 2.4 @IMAGEIMP@ Assessment: Plan: Patient Active Problem List Diagnosis Date Noted ??? 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 CLL (chronic lymphocytic leukemia) 01/17/2018 Chronic lymphocytic leukemia. Patient has a history of cold agglutinin hemolytic anemia and work-upincluding flow cytometric analysis showed CLL. Labs noted. Hemoglobin has declined slightly and bilirubin has gone up indicating further hemolysis. Patient is clinically asymptomatic. At this time I will see him back in 4 months with repeat labs.No further work-up is needed. History of cold agglutinin hemolytic anemia. Will check CBC again in 4 months. Continue folic acid along with iron and multivitamin. TOBACCO COUNSELING He is not a tobacco user. 07/30/2020 Wisam Little MD documented in this encounter Plan of Treatment Upcoming Encounters Date Type Department Care Team (Late st Contact Info) Description 03/29/2024 10:30 AM SCHOOL BUS DRIVER/TEACHER ASSISTANT Office Visit [facility] Oncology and Hematology - [place] [address] [facility] [address] [place] [address] Wisam Little MD [address] [facility] [address] [place] [phone] Scheduled Orders Name Type Priority Associated Diagnoses Orde r Schedule FERRITIN Lab Routine CLL (chronic lymphocytic leukemia) Expected: 11/19/2020, Expires: 07/30/2021 CBC WITH DIFFERENTIAL Lab Routine CLL (chronic lymphocytic leukemia) Expected: 11/19/2020, Expires: 07/30/2021 IRON, TIBC, AND PERCENT SATURATION Lab Routine CLL (chronic lymphocytic leukemia) Expected: 11/19/2020, Expires: 07/30/2021 VITAMIN B12 AND FOLATE Lab Routine CLL (chronic lymphocytic leukemia) Expected: 11/19/2020, Expires: 07/30/2021 COMPREHENSIVE METABOLIC PANEL Lab Routine CLL (chronic lymphocytic leukemia) Expected: 11/19/2020, Expires: 07/30/2021 documented as of this encounter Visit Diagnoses Diagnosis CLL (chronic lymphocytic leukemia)- Primary Chronic lymphoid leukemia, without mention of having achieved remission documented in this encounter Care Teams Pot Sander Relationship Specialty Start Date End Date Provider, Abstract NO ADDRESS ON FILE PCP - General 06/18/18 10/10/22 documented as of this encounter
--- OUTSIDE RECORDS SUMMARY | 2024-02-22 11:23 | XMS_ITS | Encounter Summary ---
Author Organization [facility] Address [address] [facility] Attn: Epic Prelude ADT [place] [address] Care Team Providers Care Tower Erector Name Role Phone Provider, Abstract Primary Care Provider Unavail able Encounter Details Date Type Department Care Team (Latest Contact Info) Description 01/30/2020 Travel Social History Tobacco Use Types Packs/Day [...] COVID-19? No / Unsure 01/30/2020 2:35 PM NUTRITION INTERN documented as of this encounter Plan of Treatment Upcoming Encounters Date Type Department Care Team (Late st Contact Info) Description 03/29/2024 10:30 AM NUTRITION INTERN Office Visit [facility] Oncology and Hematology - [place] [address] [facility] [address] [place] [address] Wisam Little MD [address] [facility] [address] [place] [address] documented as of this encounter Visit Diagnoses Not on filedocumented in this encounter Care Teams Tower Erector Relationship Specialty Start Date End Date Provider, Abstract NO ADDRESS ON FILE PCP - General 06/18/18 10/10/22 documented as of this encounter
--- OUTSIDE RECORDS SUMMARY | 2024-02-22 11:23 | XMS_ITS | Encounter Summary ---
Author Organization [facility] [employer] [facility] Address [address] [place] [address] Care Team Providers Care Freezer Unloader Name Role Phone Provider, Abstract Primary Care Provider Unavail able Encounter Details Date Type Department Care Team (Late Contact Info) Description 01/31/2020 Orders Only [facility] Oncology 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
--- OUTSIDE RECORDS SUMMARY | 2024-02-22 11:23 | XMS_ITS | Encounter Summary ---
Author Organization [facility] [employer] [facility] Address [address] [place] [address] Care Team Providers Care Gymnasium Teacher Name Role Phone Provider, Abstract Primary Care Provider Unavail able Reason for Visit * Reason Onset Date Comments Needs Orders Written 07/22/2020 Encounter Details Date Type Department Care Team (Late Contact Info) Description 07/22/2020 Telephone [facility] Oncology and Hematology [facility] [address] [place] [address] Wisam Little MD [facility] [employer] [address] [place] [address] Needs Orders Written Social History Tobacco Use Types Packs/Day Years [...] (Late Contact Info) Description 03/29/2024 10:30 AM REWARDS CONSULTANT Office Visit [facility] [address] [place] [address] Wisam Little MD [address] [employer] [address] [place] [address] Scheduled Orders Name Type Priority Associated Diagnoses Orde r Schedule CBC WITH DIFFERENTIAL Lab Routine CLL (chronic lymphocytic leukemia) Expected: 07/22/2020, Expires: 07/22/2021 documented as of this encounter Visit Diagnoses Diagnosis CLL (chronic lymphocytic leukemia)- Primary Chronic lymphoid leukemia, without mention of having achieved remission documented in this encounter Care Teams Gymnasium Teacher Relationship Specialty Start Date End Date Provider, Abstract NO ADDRESS ON FILE PCP - General 06/18/18 10/10/22 documented as of this encounter
--- OUTSIDE RECORDS SUMMARY | 2024-02-22 11:23 | XMS_ITS | Encounter Summary ---
Author Organization [facility] Address [address] [facility] Attn: Epic Prelude ADT [place] [address] Care Team Providers Care Track Leader Name Role Phone Provider, Abstract Primary Care Provider Unavail able Encounter Details Date Type Department Care Team (Latest Contact Info) Description 07/30/2020 Travel Social History Tobacco Use Types Packs/Day [...] st Contact Info) Description 03/29/2024 10:30 AM GRAPPLE YARDER OPERATOR Office Visit [facility] Oncology and Hematology - [place] [address] [facility] [address] [place] [address] Wisam Little MD [address] [facility] [address] [place] [address] documented as of this encounter Visit Diagnoses Not on filedocumented in this encounter Care Teams Track Leader Relationship Specialty Start Date End Date Provider, Abstract NO ADDRESS ON FILE PCP - General 06/18/18 10/10/22 documented as of this encounter
--- OUTSIDE RECORDS SUMMARY | 2024-02-22 11:24 | XMS_ITS | Encounter Summary ---
Author Organization [facility] [employer] [facility] Address [address] [place] [address] Care Team Providers Care Youth Associate Name Role Phone Provider, Abstract Primary Care Provider Unavail able Reason for Visit * Reason Comments Follow Up 6 week F/U W/LABS Encounter Details Date Type Department Care Team (Late st Contact Info) Description 01/30/2020 2:45 PM CHEMICAL CELL CHANGER Office Visit [facility] Oncology and Hematology - [place] [address] [place] [address] [facility] [address] [place] [address] Wisam Little MD [address] [facility] [address] [place] [address] CLL (chronic lymphocytic leukemia) (Primary Dx); Hemolytic anemia due to cold [...] COVID-19? No / Unsure 01/30/2020 2:35 PM CHEMICAL CELL CHANGER documented as of this encounter Last Filed Vital Signs Vital Sign Reading Time Taken Comments Blood Pressure 157/73 01/30/2020 2:53 PM CHEMICAL CELL CHANGER 1ST 165/86 HR 72 Pulse 71 01/30/2020 2:53 PM CHEMICAL CELL CHANGER Temperature 37 ??C (98.6 ??F) 01/30/2020 2:5 3 PM CHEMICAL CELL CHANGER Respiratory Rate - - Oxygen Saturation 98% 01/30/2020 2:5 3 PM CHEMICAL CELL CHANGER Inhaled Oxygen Concentration - - Weight 75.8 kg (167 lb 3.2 oz) 01/30/2020 2:53 PM CHEMICAL CELL CHANGER Height 170.2 cm (5' 7 ) 01/30/2020 2:53 PM CHEMICAL CELL CHANGER Body Mass Index 26.19 01/30/2020 2:53 PM CHEMICAL CELL CHANGER documented in this encounter Progress Notes * Wisam Little MD - 01/30/2020 3:16 PM CST HEMATOLOGY / ONCOLOGY PROGRESS NOTE Patient Identification: Name: Richard Pringle Age: 74 y.o. 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 He denies any excessive tiredness and fatigue. Denies any bleeding and bruising. No weight loss. He has been quite active and performing his daily exercise on a regular basis. No other new complaints. Review of system [...] 7.7 hemoglobin 13 platelet 196,000 neutrophils 60% [id number]% LDH 631 creatinine 1.0 calcium 8.0 total bilirubin 1.4. Labs from January 26 showed total bilirubin 2.2 hemoglobin 12.2 WBC 9.3 platelet 200,000 neutrophils 52% haptoglobin less than 8 @IMAGEIMP@ Assessment: Plan: Patient Active Problem List Diagnosis Date Noted ??? 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 CLL (chronic lymphocytic leukemia) 01/17/2018 Chronic lymphocytic leukemia. Patient has a history of cold agglutinin hemolytic anemia and work-upincluding flow cytometric analysis showed CLL. Patient is asymptomatic. No evidence of lymphadenopathy. We will continue to observe and repeat labs again in 6 months. History of cold agglutinin hemolytic anemia. LDH is normal but haptoglobin is low and total bilirubin is elevated. Hemoglobin has dropped slightly. Clinically he is asymptomatic. No need for treatment at this time. He will continue folic acid 500 mcg daily along with iron 325 mg daily. TOBACCO COUNSELING He is not a tobacco user. 01/30/2020 Wisam Little MD ICAL CELL CHANGER documented in this encounter Plan of Treatment Upcoming Encounters Date Type Department Care Team (Late st Contact Info) Description 03/29/2024 10:30 AM CHEMICAL CELL CHANGER Office Visit [facility] Oncology and Hematology - Sin [address] [place] [address] Wisam Little MD [address] [facility] [address] [place] [address] Scheduled Orders Name Type Priority Associated Diagnoses Orde r Schedule COMPREHENSIVE METABOLIC PANEL Lab Routine CLL (chronic lymphocytic leukemia) Expected: 07/30/2020, Expires: 01/29/2021 LACTATE DEHYDROGENASE Lab Routine CLL (chronic lymphocytic leukemia) Expected: 07/30/2020, Expires: 01/29/2021 documented as of this encounter Results * CBC WITH DIFFERENTIAL (01/27/2020) Blood Wisam Little MD HEMATOLOGY ORDERABLE S NON [facility] documented in this encounter Visit Diagnoses Diagnosis CLL (chronic lymphocytic leukemia)- Primary Chronic lymphoid leukemia, without mention of having achieved remission 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
--- OUTSIDE RECORDS SUMMARY | 2024-02-22 11:24 | XMS_ITS | Encounter Summary ---
Author Organization [facility] [employer] [facility] Address [address] [place] [address] Care Team Providers Care Client Representative Name Role Phone Provider, Abstract Primary Care Provider Unavail able Encounter Details Date Type Department Care Team (Late st Contact Info) Description 12/11/2019 Orders Only [facility] Oncology [facility] [address] [place] [address] Lucy Ivy RN CLL (chronic lymphocytic leukemia) Social History Tobacco [...] st Contact Info) Description 03/29/2024 10:30 AM ELECTROPLATING WORKER Office Visit [facility] Oncology and [facility] [address] [place] [address] Wisam Little MD [address] [facility] [address] [place] [address] documented as of this encounter Procedures Procedure Name Priority Date/Time Associated Diagnosis Comments CBC WITH DIFFERENTIAL Routine 12/13/2019 CLL (chronic lymphocytic leukemia) COMPREHENSIVE METABOLIC PANEL Routine 12/12/2019 CLL (chronic lymphocytic leukemia) documented in this encounter Results * CBC WITH DIFFERENTIAL (12/13/2019) Blood Wisam Little MD HEMATOLOGY ORDERABLE S Performing Organization Address City/[facility] Co de Phone Number NON [facility] * COMPREHENSIVE METABOLIC PANEL (12/12/2019) Blood Wisam Little MD CHEMISTRY ORDERABLES Performing Organization Address City/[facility] Co de Phone Number NON [facility] documented in this encounter Visit Diagnoses Diagnosis CLL (chronic lymphocytic leukemia) Chronic lymphoid leukemia, without mention of having achieved remission documented in this encounter Care Teams Client Representative Relationship Specialty Start Date End Date Provider, Abstract NO ADDRESS ON FILE PCP - General 06/18/18 10/10/22 documented as of this encounter
--- OUTSIDE RECORDS SUMMARY | 2024-02-22 11:24 | XMS_ITS | Encounter Summary ---
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 No / Unsure 01/30/2020 2:35 PM GLOBAL ACCOUNT MANAGER documented as of this encounter Plan of Treatment Upcoming Encounters Date Type Department Care Team (Late st Contact Info) Description 03/29/2024 10:30 AM GLOBAL ACCOUNT MANAGER Office Visit [facility] Oncology and [facility] [address] [place] [address] Wisam Little MD [address] [facility] [address] [place] [address] documented as of this encounter Procedures Procedure Name Priority Date/Time Associated Diagnosis Comments COMPREHENSIVE METABOLIC PANEL Routine 01/27/2020 CLL (chronic lymphocytic leukemia) 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
--- OUTSIDE RECORDS SUMMARY | 2024-02-22 11:24 | XMS_ITS | Encounter Summary ---
Author Organization [facility] [employer] Address [address] [place] [address] Care Team Providers Care Director Pharmacy Services Name Role Phone Provider, Abstract Primary Care Provider Unavail able Encounter Details Date Type Department Care Team (Late Contact Info) Description 09/12/2019 Orders Only [facility] Oncology [facility] [address] [place] [address] Wisam Little MD [facility] [employer] [address] [place] [address] CLL (chronic lymphocytic leukemia) Social History [...] st Contact Info) Description 03/29/2024 10:30 AM HORTICULTURAL NURSERY ASSISTANT Office Visit [facility] Oncology [facility] [address] [place] [address] Wisam Little MD [address] [employer] [address] [place] [address] documented as of this encounter Procedures Procedure Name Priority Date/Time Associated Diagnosis Comments COMPREHENSIVE METABOLIC PANEL Routine 09/12/2019 CLL (chronic lymphocytic leukemia) CBC WITH DIFFERENTIAL Routine 09/11/2019 CLL (chronic lymphocytic leukemia) documented in this encounter Results * COMPREHENSIVE METABOLIC PANEL (09/12/2019) Blood Wisam Little MD CHEMISTRY ORDERABLES Performing Organization Address City/[facility]/ZIP Co de Phone Number NON [facility] * CBC WITH DIFFERENTIAL (09/11/2019) Blood Wisam Little MD HEMATOLOGY ORDERABLE S Performing Organization Address City/[facility] Co de Phone Number NON [facility] documented in this encounter Visit Diagnoses Diagnosis CLL (chronic lymphocytic leukemia) Chronic lymphoid leukemia, without mention of having achieved remission documented in this encounter Care Teams Director Pharmacy Services Relationship Specialty Start Date End Date Provider, Abstract NO ADDRESS ON FILE PCP - General 06/18/18 10/10/22 documented as of this encounter
--- OUTSIDE RECORDS SUMMARY | 2024-02-22 11:24 | XMS_ITS | Encounter Summary ---
Author Organization [facility] Address [address] [place] [address] Care Team Providers Care Datastage Architect Name Role Phone Provider, Abstract Primary Care Provider Unavail able Encounter Details Date Type Department Care Team (Late Contact Info) Description 12/11/2018 Orders Only [facility] Oncology [facility] Hematology [facility] [address] [place] [address] Wisam Little MD [address] [place], [place] [address] [address] [place] [address] CLL (chronic lymphocytic leukemia) Social History [...] st Contact Info) Description 03/29/2024 10:30 AM 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 Office Visit [facility] Oncology and Hematology [facility] [address] [place] [address] Wisam Little MD [address] [employer] [address] [place] [address] documented as of this encounter Procedures Procedure Name Priority Date/Time Associated Diagnosis Comments CBC WITH DIFFERENTIAL Routine 12/11/2018 CLL (chronic lymphocytic leukemia) documented in this encounter Results * CBC WITH DIFFERENTIAL (12/11/2018) Blood Wisam Little MD HEMATOLOGY ORDERABLE S EXTER[facility] LAB documented in this encounter Visit Diagnoses Diagnosis CLL (chronic lymphocytic leukemia) Chronic lymphoid leukemia, without mention of having achieved remission documented in this encounter Care Teams Datastage Architect Relationship Specialty Start Date End Date Provider, Abstract NO ADDRESS ON FILE PCP - General 06/18/18 10/10/22 documented as of this encounter
--- OUTSIDE RECORDS SUMMARY | 2024-02-22 11:24 | XMS_ITS | Encounter Summary ---
Author Organization [facility] Address [address] [place] [address] Care Team Providers Care Trauma Doctor Name Role Phone Provider, Abstract Primary Care Provider Unavail able Reason for Visit * Reason Comments Follow Up 6 MTH Encounter Details Date Type Department Care Team (Late st Contact Info) Description 12/18/2018 11:15 AM CDT Office Visit [facility] Oncology and Hematology - Sin [address] [facility] [address] [place] [address] Wisam Little MD [address] [facility] [address] [place] [address] CLL (chronic lymphocytic leukemia) (Primary [...] Sign Reading Time Taken Comments Blood Pressure 123/89 12/18/2018 11:00 AM CDT Pulse 64 12/18/2018 11:00 AM CDT Temperature 36.5 ??C (97.7 ??F) 12/18/2018 11:00 AM C DT Respiratory Rate - - Oxygen Saturation 98% 12/18/2018 11:00 AM CDT Inhaled Oxygen Concentration - - Weight 75.5 kg (166 lb 8 oz) 12/18/2018 11:00 AM CDT Height 170.2 cm (5' 7 ) 12/18/2018 11:00 AM CDT Body Mass Index 26.08 12/18/2018 11:00 AM CDT documented in this encounter Progress Notes * Wisam Little MD - 12/18/2018 12:05 PM CDT HEMATOLOGY / ONCOLOGY PROGRESS NOTE Patient Identification: Name: Richard Prignle Age: 73 y.o. 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 He has some tiredness with some feeling of cold sensation in the upper extremities yet he denies any bleeding and bruising. Denies any other new complaints. Review of [...] dizziness Skin: No lumps, bumps or rashes. Objective: Vital signs in last 24 hours: [...] No lymphadenopathy Neuro: No obvious focal deficit [facility] Labs from December 11, 2018 showed WBC 7.7 hemoglobin 13 platelet 196,000 neutrophils 60% [id number]% LDH 631 creatinine 1.0 calcium 8.0 total bilirubin 1.4. @IMAGEIMP@ Assessment: Plan: Patient Active Problem List Diagnosis Date Noted ??? CLL (chronic lymphocytic leukemia) 01/17/2018 Chronic lymphocytic leukemia. Patient has a history of cold agglutinin hemolytic anemia and work-upincluding flow cytometric analysis showed CLL. He remains asymptomatic from CLL. No B symptoms. No lymphadenopathy. No treatment needed. I will see him back in 9 months with repeat labs. History of cold agglutinin hemolytic anemia. LDH is slightly elevated and patient remains slightly anemic. I have instructed him to take folic acid 500 mcg daily along with ferrous sulfate 325 mg daily. I will check him back in 9 months with blood test. ? TOBACCO COUNSELING He is not a tobacco user. 12/18/2018 Wisam Little MD documented in this encounter Plan of Treatment Upcoming Encounters Date Type Department Care Team (Late st Contact Info) Description 03/29/2024 10:30 AM CARTOONIST SPECIAL EFFECTS Office Visit [facility] Oncology and Hematology - [place] [address] [facility] [address] [place] [address] Wisam Little MD [address] [facility] [address] [place] [address] Scheduled Orders Name Type Priority Associated Diagnoses Orde r Schedule LACTATE DEHYDROGENASE Lab Routine CLL (chronic lymphocytic leukemia) Expected: 12/18/2019, Expires: 03/22/2020 documented as of this encounter Results * CBC WITH DIFFERENTIAL (12/13/2019) Blood Wisam Little MD HEMATOLOGY ORDERABLE S NON [facility] * COMPREHENSIVE METABOLIC PANEL (12/12/2019) Blood Wisam Little MD CHEMISTRY ORDERABLES Performing Organization Address [facility] Co de Phone Number NON [facility] * COMPREHENSIVE METABOLIC PANEL (09/12/2019) Blood Wisam Little MD CHEMISTRY ORDERABLES Performing Organization Address [facility] Co de Phone Number NON [facility] * CBC WITH DIFFERENTIAL (09/11/2019) Blood Wisam Little MD HEMATOLOGY ORDERABLE S Performing Organization Address [facility] de Phone Number NON [facility] documented in this encounter Visit Diagnoses Diagnosis CLL (chronic lymphocytic leukemia)- Primary Chronic lymphoid leukemia, without mention of having achieved remission documented in this encounter Care Teams Trauma Doctor Relationship Specialty Start Date End Date Provider, Abstract NO ADDRESS ON FILE PCP - General 06/18/18 10/10/22 documented as of this encounter
--- OUTSIDE RECORDS SUMMARY | 2024-02-22 11:24 | XMS_ITS | Encounter Summary ---
Author Organization [facility] Address [address] [place] [address] Care Team Providers Care Nurse Practitioner Per Diem Name Role Phone Laz Lopez MD Primary Care Provider + Reason for Visit * Laboratory Services (Routine) - Closed Specialty Diagnoses / Procedures Referred By Contac t Referred To Contact Diagnoses CLL (chronic lymphocytic leukemia) Procedures B-CELL CHRONIC LYMPHOCYTIC [place] [address] [place] [address] [address] [place] [address] Referral ID Status Reason Start Date Expiration Date Visits Re quested Visits Authorized [id number] Closed 01/17/2018 02/17/2019 1 1 Encounter Details Date Type Department Care Team (Late st Contact Info) Description 03/16/2018 Orders Only [facility] Oncology and Hematology - [place] [address] [place] [address] [address] [place] [id number] Karen Catalan RN CLL (chronic lymphocytic leukemia) Social History [...] as of this encounter Miscellaneous Notes * Addendum Note - Karen Catalan RN - 03/26/2018 3:36 PM CSTAddended by: KAREN CATALAN on: 03/26/2018 03:36 PM Modules accepted: Orders CASTER documented in this encounter Plan of Treatment Upcoming Encounters Date Type Department Care Team (Late st Contact Info) Description 03/29/2024 10:30 AM PIG CASTER Office Visit [facility] Oncology and Hematology [facility] [address] [facility] [address] [place] [address] Wisam Little MD [address] [facility] [address] [place] [address] documented as of this encounter Procedures Procedure Name Priority Date/Time Associated Diagnosis Comments CBC WITH DIFFERENTIAL Routine 03/19/2018 CLL (chronic lymphocytic leukemia) documented in this encounter Results * CBC WITH DIFFERENTIAL (03/19/2018) Blood Wisam Little MD HEMATOLOGY ORDERABLE S EXTERNAL LAB documented in this encounter Visit Diagnoses Diagnosis CLL (chronic lymphocytic leukemia) Chronic lymphoid leukemia, without mention of having achieved remission documented in this encounter Care Teams Nurse Practitioner Per Diem Relationship Specialty Start Date End Date Laz Lopez MD [address] [place] [id number] PCP - General Internal Medicine 01/08/18 06/17/18 documented as of this encounter
--- OUTSIDE RECORDS SUMMARY | 2024-02-22 11:24 | XMS_ITS | Encounter Summary ---
Author Organization [facility] Address [address] [place] [address] Care Team Providers Care Renewable Energy Trader Name Role Phone Provider, Abstract Primary Care Provider Unavail able Reason for Visit * Reason Comments Follow Up Results Encounter Details Date Type Department Care Team (Late st Contact Info) Description 06/18/2018 2:15 PM CDT Office Visit [facility] Oncology and Hematology - [place] [address] [facility] [address] [place] [address] Wisam Little MD [address] [facility] [address] [place] [address] CLL (chronic lymphocytic leukemia) (Primary [...] Sign Reading Time Taken Comments Blood Pressure 155/77 06/18/2018 2:11 PM CDT Pulse 72 06/18/2018 2:11 PM CDT Temperature 36.8 ??C (98.2 ??F) 06/18/2018 2:11 PM CD T Respiratory Rate - - Oxygen Saturation 98% 06/18/2018 2:11 PM CDT Inhaled Oxygen Concentration - - Weight 76.1 kg (167 lb 11.2 oz) 06/18/2018 2:11 PM CDT Height 170.2 cm (5' 7 ) 06/18/2018 2:11 PM CDT Body Mass Index 26.27 06/18/2018 2:11 PM CDT documented in this encounter Progress Notes * Wisam Little MD - 06/18/2018 2:54 PM CDT HEMATOLOGY / ONCOLOGY PROGRESS NOTE Patient Identification: Name: Richard Pringle Age: 72 y.o. Sex: male : 1945 Subjective: HPI This is a pleasant 72-year-old male came into the hospital on January 05 with complain of shortness of breath. Patient was working outside in the cold weather. Labs showed hemoglobin of 11with hematocrit of 29%. For the left showed positive cold agglutinin disease. Patient denies any previous history of autoimmune disease and lymphoproliferative disorder. Patient had CT scan done few years ago due to left upper quadrant pain and came back unremarkable. He came into the office for follow-up visit to discuss labs. He is clinically asymptomatic without any B symptoms. No new complaints today. Interval History: CT neck, chest, abdomen and pelvis done on January 26, 2018. Review of system Constitutional: No fever; no night sweats; no anorexia; no weight loss; no fatique Respiratory: No shortness of breath; no pleuritic chest pain; no cough; no hemoptysis Cardiac: No cardiac-like chest pain; no palpitations; no orthopnea; no PND; no CASTRO GI: No abdominal pain; no nausea; no vomiting; no diarrhea; no hematochezia; no melena Musculosketetal: no bone pain; no arthralgia; no joint swelling; no myalgia; Neuro: No headache; no change in vision; no sensory changes; no muscle weakness; no confusion; no seizures Ext no edema 12 point review system was reviewed. Objective: Vital signs in last 24 hours: As per nursing note Exam: Gen: NAD Lungs: Clear Cardiac: S1 and S2 without murmurs or gallops Abd: Soft, tender, no hepatomegally, no masses Extr: No LE edema Lymphatic examination showed no lymphadenopathy. Examination as above. Scheduled Meds:@[email or web address]@ Continuous Infusions:@MEDSINFUSIONS@ Data Review: [facility] Labs from March 19 2 WBC 7.9 hemoglobin 12.1 platelet 101,000 neutrophils 61% lymphocyte 28.6% Labs from June 11 showed WBC 7.7 hemoglobin 12.9 platelet 186,000 neutrophils 58% lymphocytes 31% LDH 506 @IMAGEIMP@ Assessment: Plan: Patient Active Problem List Diagnosis Date Noted ??? CLL (chronic lymphocytic leukemia) 01/17/2018 ?? Chronic lymphocytic leukemia. Further workup for cold agglutinin diseasehowed flow cytometric analysis positive for CD5 positive chronic lymphocytic leukemia/small lymphocytic lymphoma. protein electrophoresis came back negative for myeloma. CT neck, chest, abdomen and pelvis done on January 26 showed no evidence of lymphadenopathy. CLL Fish panel test was not authorized by the insurance. Left reviewed from today that showed improvement in the hemoglobin. Lately count has normalized now. On my examination there is no evidence of lymphadenopathy. At this time I will see him back in 6 months with repeat labs. TOBACCO COUNSELING He is not a tobacco user. ? 06/18/2018 Wisam Little MD documented in this encounter Plan of Treatment Upcoming Encounters Date Type Department Care Team (Late st Contact Info) Description 03/29/2024 10:30 AM ELECTRON BEAM WELDER SETTER Office Visit [facility] Oncology and Hematology [facility] [address] [place] [address] [address] [place] [address] Wisam Little MD [address] [facility] [address] [place] [address] documented as of this encounter Results * COMPREHENSIVE METABOLIC PANEL (12/11/2018) Blood Wisam Little MD CHEMISTRY ORDERABLES EXTERNAL LAB * CBC WITH DIFFERENTIAL (12/11/2018) Blood Wisam Little MD HEMATOLOGY ORDERABLE S EXTERNAL LAB documented in this encounter Visit Diagnoses Diagnosis CLL (chronic lymphocytic leukemia)- Primary Chronic lymphoid leukemia, without mention of having achieved remission documented in this encounter Care Teams Renewable Energy Trader Relationship Specialty Start Date End Date Provider, Abstract NO ADDRESS ON FILE PCP - General 06/18/18 10/10/22 documented as of this encounter
--- OUTSIDE RECORDS SUMMARY | 2024-02-22 11:24 | XMS_ITS | Encounter Summary ---
Author Organization [facility] Address [address] [place] [address] Care Team Providers Care Search Marketing Analyst Name Role Phone Laz Lopez MD Primary Care Provider + Reason for Visit * Reason Comments Follow Up Results Encounter Details Date Type Department Care Team (Late st Contact Info) Description 03/19/2018 1:00 PM GARNETT MACHINE OPERATOR Office Visit [facility] Oncology and Hematology - [place] [address] [place] [address] [address] [place] [address] Wisam Little MD [address] [facility] [address] [place] [address] CLL (chronic lymphocytic leukemia) (Primary [...] Sign Reading Time Taken Comments Blood Pressure 149/76 03/19/2018 1:02 PM GARNETT MACHINE OPERATOR Pulse 61 03/19/2018 1:02 PM GARNETT MACHINE OPERATOR Temperature - - Respiratory Rate - - Oxygen Saturation 98% 03/19/2018 1:02 PM GARNETT MACHINE OPERATOR Inhaled Oxygen Concentration - - Weight 76.8 kg (169 lb 6.4 oz) 03/19/2018 1:02 P M GARNETT MACHINE OPERATOR Height 170.2 cm (5' 7 ) 03/19/2018 1:02 PM GARNETT MACHINE OPERATOR Body Mass Index 26.53 03/19/2018 1:02 PM GARNETT MACHINE OPERATOR documented in this encounter Progress Notes * Wisam Little MD - 03/19/2018 5:00 PM CST HEMATOLOGY / ONCOLOGY PROGRESS NOTE [...] quadrant pain and came back unremarkable. He denies any lumps bumps and lymphadenopathy. Interval History: CT neck, chest, abdomen and [...] no confusion; no seizures Ext no edema Objective: Vital signs in last 24 hours: As per nursing note Exam: Gen: NAD Lungs: Clear Cardiac: S1 and S2 without murmurs or gallops Abd: Soft, tender, no hepatomegally, no masses Extr: No LE edema Scheduled Meds:@[email or web address]@ Continuous Infusions:@MEDSINFUSIONS@ Data Review: [facility] Labs from March 19 2 WBC 7.9 hemoglobin 12.1 platelet 101,000 neutrophils 61% lymphocyte 28.6% @IMAGEIMP@ Assessment: Plan: Patient Active Problem List [...] test was not authorized by the insurance. Labs from today showed mild anemia and thrombocytopenia. I do not see any indication for treatment at this time. I will see him back in 3 months withrepeat labs. ? 03/19/2018 Wisam Little MD ETT MACHINE OPERATOR documented in this encounter Plan of Treatment Upcoming Encounters Date Type Department Care Team (Late st Contact Info) Description 03/29/2024 10:30 AM GARNETT MACHINE OPERATOR Office Visit [facility] Oncology and Hematology [facility] [address] [facility] [address] [place] [address] Wisam Little MD [address] [facility] [address] [place] [address] documented as of this encounter Results * LACTATE DEHYDROGENASE (06/11/2018) Blood Wisam Little MD CHEMISTRY ORDERABLES Performing Organization Address [facility] Co de Phone Number EXTERNAL LAB * BASIC METABOLIC PANEL (06/11/2018) Blood Wisam Little MD CHEMISTRY ORDERABLES Performing Organization Address [facility] Co de Phone Number EXTERNAL LAB * (ABNORMAL) CBC WITH DIFFERENTIAL (06/11/2018) Blood Wisam Little MD HEMATOLOGY ORDERABLE S Performing Organization Address [facility] Co de Phone Number EXTERNAL LAB documented in this encounter Visit Diagnoses Diagnosis CLL (chronic lymphocytic leukemia)- Primary Chronic lymphoid leukemia, without mention of having achieved remission documented in this encounter Care Teams Search Marketing Analyst Relationship Specialty Start Date End Date Laz Lopez MD [address] [place] [id number] PCP - General Internal Medicine 01/08/18 06/17/18 documented as of this encounter
--- OUTSIDE RECORDS SUMMARY | 2024-02-22 11:24 | XMS_ITS | Encounter Summary ---
Author Organization [facility] Address [address] [place] [address] Care Team Providers Care Structural Steel Erector Name Role Phone Laz Lopez MD Primary Care Provider + Encounter Details Date Type Department Care Team (Late st Contact Info) Description 06/11/2018 Orders Only [facility] Oncology [facility] [address] [place] [address] Wisam Little MD [facility] [address] [place] [address] CLL (chronic lymphocytic leukemia) Social History [...] st Contact Info) Description 03/29/2024 10:30 AM DRESSED POULTRY GRADER Office Visit [facility] Oncology [facility] [address] [place] [address] Wisam Little MD [address] [facility] [address] [place] [address] documented as of this encounter Procedures Procedure Name Priority Date/Time Associated Diagnosis Comments CBC WITH DIFFERENTIAL Routine 06/11/2018 CLL (chronic lymphocytic leukemia) LACTATE DEHYDROGENASE Routine 06/11/2018 CLL (chronic lymphocytic leukemia) BASIC METABOLIC PANEL Routine 06/11/2018 CLL (chronic lymphocytic leukemia) documented in this encounter Results * LACTATE DEHYDROGENASE (06/11/2018) Blood Wisam Little MD CHEMISTRY ORDERABLES Performing Organization Address City/[facility] Co de Phone Number EXTERNAL LAB * BASIC METABOLIC PANEL (06/11/2018) Blood Wisam Little MD CHEMISTRY ORDERABLES Performing Organization Address City/[facility]/ZIP Co de Phone Number EXTERNAL LAB * (ABNORMAL) CBC WITH DIFFERENTIAL (06/11/2018) Blood Wisam Little MD HEMATOLOGY ORDERABLE S Performing Organization Address [facility] Co de Phone Number EXTERNAL LAB documented in this encounter Visit Diagnoses Diagnosis CLL (chronic lymphocytic leukemia) Chronic lymphoid leukemia, without mention of having achieved remission documented in this encounter Care Teams Structural Steel Erector Relationship Specialty Start Date End Date Laz Lopez MD [address] [place] [address] PCP - General Internal Medicine 01/08/18 06/17/18 documented as of this encounter
--- OUTSIDE RECORDS SUMMARY | 2024-02-22 11:24 | XMS_ITS | Encounter Summary ---
Author Organization [email or web address] Address [address] [place] [address] Care Team Providers Care Hand Crocheter Name Role Phone Provider, Abstract Primary Care Provider Unavail able Reason for Visit * Reason Comments Follow Up 1 year follow up Encounter Details Date Type Department Care Team (Late st Contact Info) Description 12/19/2019 11:15 AM CDT Office Visit [facility] Oncology and Hematology - [place] [address] [address] Oscar Grover, JULIETTE NO ADDRESS ON FILE CLL (chronic lymphocytic leukemia) (Primary Dx); Hemolytic [...] have Coronavirus / COVID-19? No / Unsure 12/19/2019 11:01 AM CDT documented as of this encounter Last Filed Vital Signs Vital Sign Reading Time Taken Comments Blood Pressure 146/69 12/19/2019 11:32 AM CDT 155/79 61 second bp and pulse Pulse 66 12/19/2019 11:32 AM CDT Temperature 37.1 ??C (98.7 ??F) 12/19/2019 1 1:32 AM CDT Respiratory Rate - - Oxygen Saturation 98% 12/19/2019 11: 32 AM CDT Inhaled Oxygen Concentration - - Weight 75.3 kg (166 lb) 12/19/2019 11:3 2 AM CDT Height 170.2 cm (5' 7 ) 12/19/2019 11:3 2 AM CDT Body Mass Index 26 12/19/2019 11:32 AM CDT documented in this encounter Progress Notes * Oscar Grover ANP - 12/19/2019 3:00 PM CDT DATE: 12/19/2019 PATIENT: Richard Pringle : 1945 PCP: Provider, Abstract Stl Chief Complaint Patient presents with ??? Follow Up 1 year follow up HISTORY OF PRESENT ILLNESS Mr. 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 He was last seen a year ago. Since that time, he continues to feel well and has had an uneventful course. More recently, he voted in person and noted his ears were blue while waiting in line during cooler weather but resolved. He has a good energy level and works out 3 times a week. He admits to taking ferrous sulfate 325 mg twice a week at best but is not taking folic acid daily. He denies B symptoms, shortness of breath, chest pain, abdominal pain, lower extremity edema, or lymphadenopathy. CURRENT MEDICATIONS Current Outpatient Medications: ??? salmon oil/omega-3 fatty acids (SALMON OIL-1000 ORAL), Take 1 Capsule by mouth daily., Disp: , Rfl: ??? ascorbic acid, vitamin C, (VITAMIN C) 500 mg tablet, Take 500 mg by mouth daily., Disp: , Rfl: ??? cholecalciferol, Vitamin D3, (Vitamin D3) 25 mcg (1,000 unit) Capsule, Take 1,000 Units by mouth daily., Disp: , Rfl: ??? zinc sulfate (ZINC-15 ORAL), Take 1 Tablet by mouth., Disp: , Rfl: ??? magnesium oxide 250 mg magnesium Tablet, Take 250 mg by mouth daily., Disp: , Rfl: ??? ferrous sulfate 325 mg (65 mg iron) tablet, Take 325 mg by mouth twice weekly., Disp: , Rfl: ??? mhyylwcd-liaeq-aogfi-CF borate ([facility]) 750 mg-100 mg- 1.65 mg-108 mg Tablet, Take 1 Tablet by mouth daily., Disp: , Rfl: ??? pantoprazole (PROTONIX) 40 mg Tablet, Delayed Release (E.C.), , Disp: , Rfl: ??? FLUZONE HIGH-DOSE , PF, 180 mcg/0.5 mL Syringe syringe, ADM 0.5ML IM UTD, Disp: , Rfl: 0 ??? calcium carbonate (CALCIUM 300 ORAL), Take by mouth., Disp: , Rfl: ??? Zinc Acetate, Oral, 25 mg (zinc) Capsule, Take by mouth., Disp: , Rfl: ? ? vit b comp & o-xz-sicvtg-zinc (DIATX ZN) 5-1.5-25 mg Tablet, Take 1 Tablet by mouth daily.,Disp: , Rfl: ??? cinnamon bark (CINNAMON ORAL), Take by mouth., Disp: , Rfl: ??? [DISCONTINUED] Glucosamine HCl 1,500 mg Tablet, Take by mouth., Disp: , Rfl: ALLERGIES No Known Allergies TOBACCO COUNSELING He is not a tobacco user. REVIEW OF SYSTEMS Review of Systems Constitutional: Negative for chills, fever, malaise/fatigue and weight loss. HENT: Negative for ear pain, nosebleeds and sore throat. Eyes: Negative for blurred vision, pain and redness. Respiratory: Negative for cough and shortness of breath. Cardiovascular: Negative for chest pain and leg swelling. Gastrointestinal: Negative for abdominal pain, blood in stool, constipation, diarrhea, melena, nausea and vomiting. Genitourinary: Negative. Musculoskeletal: Negative for back pain, falls and joint pain. Skin: Negative for itching and rash. Neurological: Negative for dizziness, weakness and headaches. Endo/Heme/Allergies: Does not bruise/bleed easily. ECOG 0 PHYSICAL EXAMINATION BP (!) 146/69 (BP Location: Right arm, Patient Position (BP): Sitting, BP Cuff Size: Adult) Comment: 155/79 61 second bp and pulse Pulse 66 Temp 98.7 ??F (37.1 ??C) (Oral) Ht 5' 7 (1.702 m) Wt 75.3 kg (166 lb) SpO2 98% BMI 26.00 kg/m?? Physical Exam Vitals signs reviewed. Constitutional: Appearance: Normal appearance. HENT: Head: Normocephalic. Mouth/Throat: Mouth: Mucous membranes are moist. Pharynx: Oropharynx is clear. Eyes: General: No scleral icterus. Extraocular Movements: Extraocular movements intact. Conjunctiva/sclera: Conjunctivae normal. Neck: Musculoskeletal: Neck supple. Cardiovascular: Rate and Rhythm: Normal rate and regular rhythm. Heart sounds: Normal heart sounds. No murmur. Pulmonary: Effort: Pulmonary effort is normal. Breath sounds: Normal breath sounds. Abdominal: General: Bowel sounds are normal. Palpations: Abdomen is soft. There is no mass. Tenderness: There is no abdominal tenderness. Musculoskeletal: Normal range of motion. General: No swelling. Right lower leg: No edema. Left lower leg: No edema. Lymphadenopathy: Head: Right side of head: No submental, submandibular, preauricular or posterior auricular adenopathy. Left side of head: No submental, submandibular, preauricular or posterior auricular adenopathy. Cervical: No cervical adenopathy. Upper Body: Right upper body: No supraclavicular or axillary adenopathy. Left upper body: No supraclavicular or axillary adenopathy. Lower Body: No right inguinal adenopathy. No left inguinal adenopathy. Skin: General: Skin is warm and dry. Findings: No bruising or rash. Neurological: General: No focal deficit present. Mental Status: He is alert. Psychiatric: Mood and Affect: Mood normal. Behavior: Behavior normal. DIAGNOSIS Encounter Diagnoses Code Name Primary? C91.10 CLL (chronic lymphocytic leukemia) Yes ??? 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 CMP remarkable for total bili 2.6. LDH 770. 09/12/2019: WBC 9.0, hemoglobin 13.4, platelets clumped. CMP remarkable for total bili 2.0. LDH 420. 12/11/2018: WBC 7.7, hemoglobin 13, platelets 196,000, neutrophils 60%, lymphocytes 29%. CMP remarkable for total bili 1.4. LDH 631. ASSESSMENT 1. Chronic lymphocytic leukemia. 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 His physical exam is unremarkable. He is asymptomatic. His hemoglobin is down slightly with associated elevated LDH and bilirubin. After discussion with , we will see him back in 6 weeks, though he knows to call our office if he develops fatigue or shortness of breath. 2. History of cold agglutinin hemolytic anemia. As above, his hemoglobin is down a bit with rising LDH and total bilirubin. I recommended he take ferrous sulfate 325 mg daily more consistently and continue folic acid 500 mcg daily as previously recommended. ORDERS Orders Placed This Encounter ??? CBC WITH DIFFERENTIAL ??? COMPREHENSIVE METABOLIC PANEL ??? HAPTOGLOBIN ??? LACTATE DEHYDROGENASE FOLLOW UP Return in about 6 weeks (around 01/30/2020). ROBERT Marrero 12/19/2019 [facility] ONCOLOGY AND HEMATOLOGY - [place] [address] [place] [address] [place] [address] documented in this encounter Miscellaneous Notes * Addendum Note - Oscar Grover ANP - 12/19/2019 6:32 PM CDTAddended by: OSCAR GROVER on: 12/19/2019 06:32 PM Modules accepted: Orders documented in this encounter Plan of Treatment Upcoming Encounters Date Type Department Care Team (Late st Contact Info) Description 03/29/2024 10:30 AM DEPUTY SHERIFF CHIEF Office Visit [facility] Oncology and Hematology - [place] [address] [place] [address] [facility] [address] [place] [address] Wisam Little MD [address] [place] [address] documented as of this encounter Results * HAPTOGLOBIN (01/27/2020) Blood Oscar SEGOVIA CHEMISTRY ORDERAB LES NON [facility] * COMPREHENSIVE METABOLIC PANEL (01/27/2020) Blood Oscar SEGOVIA CHEMISTRY ORDERAB LES NON [facility] documented in this encounter Visit Diagnoses Diagnosis CLL (chronic lymphocytic leukemia)- Primary Chronic lymphoid leukemia, without mention of having achieved remission 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
--- OUTSIDE RECORDS SUMMARY | 2024-02-22 11:24 | XMS_ITS | Encounter Summary ---
Author Organization [facility] Address [address] [place] [address] Care Team Providers Care 8Th Grade Teacher Name Role Phone Provider, Abstract Primary Care Provider Unavail able Encounter Details Date Type Department Care Team (Late Contact Info) Description 12/12/2018 Orders Only [facility] Oncology [facility] [address] [place] [address] Wisam Little MD [address] [place], [place] [address] [address] [place] [address] CLL (chronic lymphocytic leukemia) Social History [...] st Contact Info) Description 03/29/2024 10:30 AM SCREW MACHINE REPAIRER Office Visit [facility] Oncology [facility] [address] [place] [address] Wisam Little MD [address] [facility] [address] [place] [address] documented as of this encounter Procedures Procedure Name Priority Date/Time Associated Diagnosis Comments COMPREHENSIVE METABOLIC PANEL Routine 12/11/2018 CLL (chronic lymphocytic leukemia) documented in this encounter Results * COMPREHENSIVE METABOLIC PANEL (12/11/2018) Blood Wisam Little MD CHEMISTRY ORDERABLES EXTERNAL LAB documented in this encounter Visit Diagnoses Diagnosis CLL (chronic lymphocytic leukemia) Chronic lymphoid leukemia, without mention of having achieved remission documented in this encounter Care Teams 8Th Grade Teacher Relationship Specialty Start Date End Date Provider, Abstract NO ADDRESS ON FILE PCP - General 06/18/18 10/10/22 documented as of this encounter
--- OUTSIDE RECORDS SUMMARY | 2024-02-22 11:25 | XMS_ITS | Continuity of Care Document ---
Author Organization [facility] Address [address] [place] [address] [address] [place] [address] Phone Care Team Providers Care Water Resource Project Manager Name Role Phone Damico OD, Berto Unavailable Unavailable Advance Directives Directive Yes / No Effective Date File Name No Information Encounters Encounter Description Practice Location Reason(s) For Visit Diagnoses Date Provider Providers Copied on Encounter [facility], [address], [place], [place], [id number], [place] tel:[phone] [facility] No Information [address] Damico OD Berto. [address], [place], [address], [place]. tel:[phone] Family History Family Member Type Diagnosis Age At Onset No Information Payers Payer name Insurance type Covered alliance party ID Authoriza tion(s) No Information Social History Type Description Quantity Date Captured Comments Sex Male Smoking Status No Information Chief Complaint And Reason For Visit No Information Reason For Referral Reason For Referral No Information History Of Present Illness Encounter Date Complaint History Of Prese nt Illness No Information Functional Status Date Functional Assessmen t No Information Instructions Date Instruction Additional Infor mation No Information Assessments Type Assessment Date No Information Patient Care Teams Name Effective Dates (start - stop) Status Members No Information
--- OUTSIDE RECORDS SUMMARY | 2024-02-22 11:25 | XMS_ITS | Encounter Summary ---
Author Organization [facility] Address [address] [place] [address] Care Team Providers Care Fireproof Door Assembler Name Role Phone Laz Lopez MD Primary Care Provider + Encounter Details Date Type Department Care Team (Late st Contact Info) Description 01/09/2018 Orders Only [facility] Oncology and Hematology [facility] [address] [place] [address] Wisam Little MD [address] [place] [address] [employer] [address] [place] [phone] Social History Tobacco Use Types Packs/Day Years Used Date Smoking Tobacco: Never Assessed Sex and Gender Information Value Date Recorded Sex Assigned at Not on file Gender Identity Not on file Sexual Orientation Not on file documented as of this encounter Plan of Treatment Upcoming Encounters Date Type Department Care Team (Late Contact Info) Description 03/29/2024 10:30 AM WELT TRIMMING MACHINE OPERATOR Office Visit [facility] Oncology and Hematology - Sin [address] [place] [address] Wisam Little MD [address] [place] [address] [employer] [address] [place] [phone] documented as of this encounter Procedures Procedure Name Priority Date/Time Associated Diagnosis Comments US ABDOMEN COMPLETE Routine 01/05/2018 documented in this encounter Results * US ABDOMEN COMPLETE (01/05/2018) Anatomical Region Laterality Modality Abdomen Other Wisam Little MD ORDERABLES documented in this encounter Visit Diagnoses Not on filedocumented in this encounter Care Teams Fireproof Door Assembler Relationship Specialty Start Date End Date Laz Lopez MD [address] [place] [id number] PCP - General Internal Medicine 01/08/18 06/17/18 documented as of this encounter
--- OUTSIDE RECORDS SUMMARY | 2024-02-22 11:25 | XMS_ITS | Encounter Summary ---
Author Organization [facility] Address [address] [address] [place] [address] Care Team Providers Care Safety Companion Name Role Phone Laz Lopez MD Primary Care Provider + Encounter Details Date Type Department Care Team (Late st Contact Info) Description 01/29/2018 Orders Only [facility] [address] [place] [address] Wisam Little MD [facility] [employer] [address] [place] [phone] CLL (chronic lymphocytic leukemia) Social History [...] st Contact Info) Description 03/29/2024 10:30 AM CRYOGENIC TRANSPORT DRIVER Office Visit [facility] Oncology [facility] Hematology [facility] [address] [place] [address] Wisam Little MD [address] [employer] [facility] [facility] [employer] [address] [place] [address] documented as of this encounter Procedures Procedure Name Priority Date/Time Associated Diagnosis Comments CT ST NECK CHEST ABD PEL W CONT Routine 01/26/2018 CLL (chronic lymphocytic leukemia) documented in this encounter Results * CT ST NECK CHEST ABD PEL W CONT (01/26/2018) Anatomical Region Laterality Modality Neck Other Wisam Little MD CT ORDERABLES documented in this encounter Visit Diagnoses Diagnosis CLL (chronic lymphocytic leukemia) Chronic lymphoid leukemia, without mention of having achieved remission documented in this encounter Care Teams Safety Companion Relationship Specialty Start Date End Date Laz Lopez MD [address] [place] [address] PCP - General Internal Medicine 01/08/18 06/17/18 documented as of this encounter
--- OUTSIDE RECORDS SUMMARY | 2024-02-22 11:25 | XMS_ITS | Encounter Summary ---
[facility] Organization [facility] Address [address] [place] [address] Care Team Providers Care Dough Mixing Machine Operator Name Role Phone Laz Lopez MD Primary Care Provider + Reason for Referral * Laboratory Services (Routine) - Closed Specialty Diagnoses / Procedures Referred By Contac t Referred To Contact Diagnoses CLL (chronic lymphocytic leukemia) Procedures B-CELL CHRONIC LYMPHOCYTIC LEUKEMIA PANEL BY Wisam Corral MD [address] [employer] [address] [address] Referral ID Status Reason Start Date Expiration Date Visits Re quested Visits Authorized [id number] Closed 01/17/2018 02/17/2019 1 1 LING AND EDGING MACHINE OPERATOR * Outpatient Services (Routine) - Closed Specialty Diagnoses / Procedures Referred By Contac t Referred To Contact Diagnoses CLL (chronic lymphocytic leukemia) Procedures CT ST NECK CHEST ABD PEL W CONT CHG CAT SCAN OF CHEST CONTRAST CHG CT NECK TISSUE CONTRAST CHG CT SCAN,ABDOMEN AND PELVIS,W CONTRAST Wisam Little MD [address] [employer] [address] [place] [phone] [address] Referral ID Status Reason Start Date Expiration Date Visits Requested Visits Authorized [id number] Closed Ordering Department To Schedule 01/17/2018 02/17/2019 1 1 LING AND EDGING MACHINE OPERATOR Reason for Visit * Reason Comments Establish Care [facility] Follow Up Encounter Details Date Type Department Care Team (Late st Contact Info) Description 01/17/2018 1:45 PM BEVELING AND EDGING MACHINE OPERATOR Office Visit [facility] Oncology and Hematology [facility] [address] [facility] [address] [place] [address] Wisam Little MD [address] [facility] [address] [place] [address] CLL (chronic lymphocytic leukemia) Social [...] Sign Reading Time Taken Comments Blood Pressure 143/85 01/17/2018 1:56 PM BEVELING AND EDGING MACHINE OPERATOR Pulse 64 01/17/2018 1:56 PM BEVELING AND EDGING MACHINE OPERATOR Temperature 36.6 ??C (97.9 ??F) 01/17/2018 1:56 PM CS T Respiratory Rate - - Oxygen Saturation 98% 01/17/2018 1:56 PM BEVELING AND EDGING MACHINE OPERATOR Inhaled Oxygen Concentration - - Weight 77.6 kg (171 lb 1.6 oz) 01/17/2018 1:56 P M BEVELING AND EDGING MACHINE OPERATOR Height 170.2 cm (5' 7 ) 01/17/2018 1:56 PM BEVELING AND EDGING MACHINE OPERATOR Body Mass Index 26.8 01/17/2018 1:56 PM BEVELING AND EDGING MACHINE OPERATOR documented in this encounter Progress Notes * Wisam Little MD - 01/17/2018 2:44 PM CST HEMATOLOGY / ONCOLOGY PROGRESS NOTE [...] any lumps bumps and lymphadenopathy. Interval History: No change in interval history. Review of system Constitutional: No fever; no [...] Meds:@MEDSSCHEDULED@ Continuous Infusions:@MEDSINFUSIONS@ Data Review: [facility] @IMAGEIMP@ Assessment: Plan: Patient Active Problem List Diagnosis Date Noted ??? 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 I will check CBC today. Patient is asymptomatic at this time. Chronic lymphocytic leukemia. Further workup for cold agglutinin diseasehowed flow cytometric analysis positive for CD5 positive chronic lymphocytic leukemia/small lymphocytic lymphoma. protein electrophoresis came back negative for myeloma.I will order CT neck chest abdomen and pelvis for completeworkup. Ultrasound done in the hospital showed a splenomegaly. Patient denies any lymphadenopathy. He is feeling much better without any tiredness and fatigue and chest pain. I have discussed the management of chronic lymphocytic leukemia in detail. I will order fish a study for CLL. I will repeat CBC, CMP and LDH. I do not see any indication for treatment at this time unless he becomes anemic with recurrent autoimmune hemolytic anemia. Infection prophylaxis. Patient will receive pneumococcal vaccine. I have answered all the questionsto patient's satisfaction. ? 01/17/2018 Wisam Little MD LING AND EDGING MACHINE OPERATOR documented in this encounter Plan of Treatment Upcoming Encounters Date Type Department Care Team (Late st Contact Info) Description 03/29/2024 10:30 AM BEVELING AND EDGING MACHINE OPERATOR Office Visit [facility] Oncology and Hematology [facility] [address] [facility] [address] [place] [address] Wisam Little MD [address] [facility] [address] [place] [address] Scheduled Orders Name Type Priority Associated Diagnoses Orde r Schedule CBC WITH DIFFERENTIAL Lab Routine CLL (chronic lymphocytic leukemia) Ordered: 01/17/2018 documented as of this encounter Procedures Procedure Name Priority Date/Time Associated Diagnosis Comments LACTATE DEHYDROGENASE Routine 01/17/2018 CLL (chronic lymphocytic leukemia) COMPREHENSIVE METABOLIC PANEL Routine 01/17/2018 CLL (chronic lymphocytic leukemia) documented in this encounter Results * CBC WITH DIFFERENTIAL (03/19/2018) Blood Wisam Little MD HEMATOLOGY ORDERABLE S EXTERNAL LAB * CT ST NECK CHEST ABD PEL W CONT (01/26/2018) Anatomical Region Laterality Modality Neck Other Wisam Little MD CT ORDERABLES * LACTATE DEHYDROGENASE (01/17/2018) Blood Wisam Little MD CHEMISTRY ORDERABLES EXTERNAL LAB * COMPREHENSIVE METABOLIC PANEL (01/17/2018) Blood Wisam Little MD CHEMISTRY ORDERABLES EXTERNAL LAB documented in this encounter Visit Diagnoses Diagnosis CLL (chronic lymphocytic leukemia) Chronic lymphoid leukemia, without mention of having achieved remission documented in this encounter Care Teams Dough Mixing Machine Operator Relationship Specialty Start Date End Date Kopjas, Laz Skip, MD [address] [place] [address] PCP - General Internal Medicine 01/08/18 06/17/18 documented as of this encounter
== END 2024-02-15 07:59 | disposition home or self-care (01) ==
PROVIDERS: PCP Student in an Organized Health Care Education/Training Program; Visit Provider Physician Assistant
DX: N20.0 Calculus of kidney (principal); Z96.0 Presence of urogenital implants
CPT/HCPCS: 74018

== ENCOUNTER 2024-02-23 00:16 | Day surgery (SDC) | payer MEDICARE, SELFPAY ==
--- NOTE | 2024-02-19 15:28 | PC.NURSE ---
Report to the Outpatient Waiting Room, entrance under the green pavilion located off [facility], at time _8 AM on date _02/22/23 . Planned Procedure Time: 10 AM .? Time changes happen often and if your time is changed the preop area will call you the afternoon before. - You and your visitor will be asked to self-screen and do not enter if you have any COVID symptoms. Please call surgeon if you need to reschedule. - A mask is optional within the hospital at this time. Patients may have clear liquids (water, carbonated beverages, clear teas, apple juice) until 3 hours prior to surgery( 7:00 AM) with a maximum of 20 ounces. - No food from midnight until time of surgery and no smoking. This includes no chewing gum, candy or mints. - Infants may have breast milk until 4 hours before surgery, infant formula 6 hours prior to surgery. - Children will be allowed to drink immediately following surgery.? If applicable, please bring a bottle or sippy cup to assist with drinking. Juice, water, soda, and popsicles are readily available.? For infants on formula, please bring formula the day of surgery.? Pacifiers are allowed. Take only the following medications with a SIP of water on the morning of surgery: __CEFDINIR DO NOT STOP ANY OF YOUR OTHER PRESCRIPTION MEDICATIONS PRIOR TO SURGERY EXCEPT THE FOLLOWING Medications to discontinue per physician __HOLD ALL VITAMINS AND SUPPLEMENTS 3 DAYS PRE OP Date to take last dose 02/19/24 Please no make-up, nail turkish, hairspray, perfume, deodorant, or body powder the day of surgery.? No jewelry (including any body piercings) or valuables the day of surgery, leave them at home.? Please take a shower or bath the night before, or the morning of, surgery with an antibacterial soap.? Wear comfortable, loose fitting clothing.? Children are encouraged to wear pajamas. - Jewelry must be removed prior to entering the operating room.? Rings and piercings that are not removed may be cut off. - The hospital will not accept responsibility for valuables.? - Please leave all valuables, including medications, at home the day of surgery. If you are going home after surgery, a licensed hazmat cdl a driver must drive you home.? - NO public transportation without another adult if you receive anesthesia. - We recommend that an adult stay with you for 24 hours following discharge. - We also recommend that you do not drive, make important decision, drink alcoholic beverages, or take any drugs that were not prescribed by your health care provider for at least 24 hours after your discharge time. For Pediatric surgeries, we recommend two adults accompany the child home. Follow any additional instructions given to you from your surgeon. Telephone instructions given to __PATIENT and asked if any additional questions and then verbalized understanding. Patient advised to call surgeon office or pre surgery nurse liaison [phone] if any additional questions.
[2024-02-19 15:42] VITALS: BMI 25.0
--- NOTE | 2024-02-22 14:24 | P.PNAN_ITS ---
Anes - Initial Pre Proc Eval Procedure: Operation Date: 02/23/24 09:00 Proposed Procedures p Cystoscopy, Left Ureteroscopy, Possible Left Retrograde Pyelogram, Possible Left Stone Extraction, Possible Left Stent Removal/Exchange, Possible Holmium Laser Procedure - Marin Monroy MD Date/Time: 02/22/24 14:24 Surgeon: Marin Monroy MD Pre Op Diagnosis: ureteral kidney stones Patient Data Age: 78 Gender: M Height: 1.7 m Weight: 72.6 kg Allergies Allergy/AdvReac Type Severity Reaction Status Date / Time PAIN MEDS AdvReac Mild NAUSEATED Uncoded 02/23/24 07:45 Home Medications ?Medication ?Instructions ?Recorded ?Confirmed ?Type ascorbate calcium (vitamin C) 1 tab-cap PO DAILY 07/12/21 02/19/24 History famotidine 20 mg tablet 20 mg PO BID 07/12/21 02/19/24 History magnesium carbonate 1 tab-cap PO DAILY 07/12/21 02/19/24 History omega-3 fatty acids 1 cap PO DAILY 07/12/21 02/19/24 History vitamin B complex 1 tablet PO DAILY 07/12/21 02/19/24 History cefdinir 300 mg capsule 300 mg PO Q12H 02/19/24 02/19/24 History cholecalciferol (vitamin D3) 50 2,000 unit PO DAILY 02/19/24 02/19/24 History mcg (2,000 unit) capsule cinnamon bark 500 mg capsule 500 mg PO DAILY 02/19/24 02/19/24 History (Cinnamon) glucosamine-chondroitin 500 mg-400 1 cap PO DAILY 02/19/24 02/19/24 History mg capsule tamsulosin 0.4 mg capsule 0.4 mg PO Q24H 02/19/24 02/19/24 History zinc 15 mg tablet 15 mg PO DAILY 02/19/24 02/19/24 History Patient hx anesthesia problems: none Family hx anesthesia problems: none Results Review: All pre-operative results and documents have been reviewed as part of the pre- operative evaluation. [facility] Past Medical History Medical History (Updated 02/22/24 @ 14:25 by Kenny Maloney DO) GERD (gastroesophageal reflux disease) Colon cancer screening Bladder cancer Anemia CLL (chronic lymphocytic leukemia) Family History Family History (Updated 10/17/13 @ 07:13 by DOCTOR UNKNOWN) Mother Family history of dementia Social History Social History Smoking packs per day: 1 Smoking cigarettes per day: 20.0 Years smoked: 4 Smoking pack-years: 4.00 Smoking status: Former smoker Tobacco type: cigarettes Smoking end date: 02/20/69 Alcohol intake: never Substance use: never Substance use type: does not use Living arrangements: with family Spiritual care concerns: No Anes - Eval Final PreProcedure Day of Procedure 02/22/24 14:24 Patient weight: overweight Heart: regular rate and rhythm Lungs: clear to auscultation Airway: Mallampati scale class II Neurological: alert and oriented Last oral intake: >/= 8 hours ASA classification: III Emergent: no Anesthetic plan: proceed Anesthesia type and monitoring: general LMA and standard monitoring Results Review: All pre-operative results and documents have been reviewed as part of the pre- operative evaluation. Informed Consent: The patient's anesthetic plan and its attendant risks and benefits were discussed with the patient/family/POA. Questions were solicited and answers provided to the satisfaction of the patient/family/POA.
[2024-02-23] VITALS (9 sets, daily range): BP systolic 120–140; BP diastolic 55–69; PULSE 61–76; RESP 14–20; TEMP 36.4–36.6; O2SAT 96–100
--- NOTE | ~2024-02-23 | XR_ITS ---
EXAMINATION: XR retrograde pyelo w/stent LT DATE: 02/23/2024 09:09 INDICATION: Left ureteral stone. TECHNIQUE: 8 intraoperative fluoroscopic views of the abdomen and pelvis were obtained. I was not pre sent. Fluoroscopy exposure time was 19 seconds. COMPARISON: Abdomen radiograph 02/15/2024 FINDINGS: There is a left internal ureteral stent in expected position. The stent was removed. The le ft-sided retrograde pyelogram demonstrates extraluminal contrast. Left-sided hydronephrosis is noted. The final images demonstrate a new left internal ureteral stent in expected position. IMPRESSION: 1. Left-sided hydronephrosis. New left internal ureteral stent in expected position. 2. Extraluminal contrast seen during the left-sided retrograde pyelogram. Reviewed, dictated and finalized at location A. MARKETING EXECUTIVE IMPRESSION: 1. Left-sided hydronephrosis. New left internal ureteral stent in expected posi tion. 2. Extraluminal contrast seen during the left-sided retrograde pyelogram.
--- NOTE | 2024-02-23 07:31 | WPDHPUPDATE1 ---
History and Physical Update Update Date/Time: 02/23/24 07:31 History and Physical has been reviewed, including an updated exam of the patient. There are NO changes in the patient's condition. Risks, benefits, and alternatives have been discussed and questions answered. Patient agrees to proceed with procedure.
[2024-02-23] MEDS: LACTATED RINGERS 1,000 ML 30 ML IV CONT (08:00)
[2024-02-23] MEDS: LIDOCAINE 2% GEL UROJET 10 ML PKG MUCOUS MEM (09:00)
--- NOTE | 2024-02-23 09:09 | W.PM.PROC2 ---
Procedure Note - Detailed Date of Procedure 02/23/24 Pre-op Diagnosis Left ureteral calculus 5 mm Post-op Diagnosis Same Procedure Performed Cystoscopy, left retrograde pyelogram, left ureteroscopy with stone extraction, left ureteral stent exchange 4.8 Georgian contour Surgeon Marin Monroy MD Anesthesia General Description of Procedure Patient was taken to the operative suite correctly identified. Once anesthesia was obtained was placed in dorsal lithotomy position and prepped and draped usual sterile fashion. Twenty-two Georgian scope was inserted the bladder there no tumors noted. The left stent which was already present was retrieved with a grasper brought out the meatus. Sensor wire was inserted. Semi rigid ureteral scope was inserted into the left ureteral orifice. The stone was visualized in the proximal ureter. Using an escape base here were able to retrieve it in its entirety. Since this is sent for analysis. Pyelogram was then performed to confirm placement the stent. 4.8 Georgian contour stent was then placed with the proximal end coiled in the left renal pelvis and the distal end in the bladder. 2% viscous lidocaine was inserted urethra and patient is taken recovery stable condition. He will follow-up in a week's time for stent removal. This completes dictation. Please send a copy of op note to my office.
[2024-02-23] MEDS: ACETAMINOPHEN 500 MG TABLET 1000 MG PO (10:56)
== END 2024-02-23 11:22 | disposition home or self-care (01) ==
PROVIDERS: PCP Student in an Organized Health Care Education/Training Program; Visit Provider Urology
PROC: (CPT 52352; principal; 2024-02-23 09:00)
DX: N20.1 Calculus of ureter (principal); D64.9 Anemia, unspecified; C91.10 Chronic lymphocytic leukemia of B-cell type not having achieved remission; N52.01 Erectile dysfunction due to arterial insufficiency; N40.1 Benign prostatic hyperplasia with lower urinary tract symptoms; N53.19 Other ejaculatory dysfunction; R30.0 Dysuria; R31.0 Gross hematuria; R33.9 Retention of urine, unspecified; R39.15 Urgency of urination; K21.9 Gastro-esophageal reflux disease without esophagitis; Z98.890 Other specified postprocedural states; Z85.51 Personal history of malignant neoplasm of bladder; Z84.0 Family history of diseases of the skin and subcutaneous tissue; Z82.49 Family history of ischemic heart disease and other diseases of the circulatory system
CPT/HCPCS: 52356; 74420; 82365; 88300; A9270; C1758; C1769; C2617; J7120; Q9966

== ENCOUNTER 2024-06-05 13:18 | Outpatient (CLI) | payer MEDICARE, SELFPAY ==
--- NOTE | ~2024-06-05 | CT_ITS ---
Non-contrast CT scan of the Abdomen and Pelvis Clinical indication: Abdominal pain Technique: 2.5 mm axial scans were obtained through the abdomen and pelvis without intravenous or or al contrast. Dose reduction technique was used on this scan by utilizing automated exposure control a nd iterative reconstruction technique. The dose-length product (DLP) was 526.54 mGy-cm. Findings: Images through the lung bases reveal no abnormalities. There is no evidence of renal or ureteral calculi. The kidneys and the ureters are nondilated. Dystro phic calcification present in the posterior medial left kidney. Small left renal cyst present. Calcified hepatic and splenic granulomas are present. The liver, spleen, pancreas, gallbladder, and a drenals are otherwise appear normal. There are atherosclerotic calcifications of the aorta. There is no evidence of bowel obstruction. Images through the pelvis were performed. There is no evidence of ascites or lymphadenopathy. Urinary bladder unremarkable. Prostate gland enlarged. No pelvic mass. No ascites. 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 Impression: No acute abnormalities. Chronic findings, as above. Reviewed, dictated and finalized at location . Impression: No acute abnormalities. Chronic findings, as above.
== END 2024-06-05 13:19 | disposition home or self-care (01) ==
LOC: MICIMG 13:20
PROVIDERS: PCP Student in an Organized Health Care Education/Training Program; Visit Provider Nurse Practitioner Family
DX: R10.9 Unspecified abdominal pain (principal)
CPT/HCPCS: 74176